=== PATIENT | female | born 1940 | race Caucasian/White ===

== ENCOUNTER 2017-05-09 13:00 | Outpatient (RCR) | payer MEDICARE, SELFPAY ==
--- NOTE | 2017-04-26 16:02 | HP.PTEVAL_ITS ---
Patient's Visit Information RHONDA HOLCOMB is a 76 year old F referred to Physical Therapy by LIS LAGOS with a diagnosis of L ITband syndrome. Date of Evaluation: 04/26/17 Physical Therapist: Javed Rodriguez, PT, - Visit Plan Frequency: 2-3x /Week Duration: 4-6 Weeks Plan: L LE stretching and strengthening, core stab ex's, nustep, and HEP. Iontophoresis for pain - Subjective Subjective: Pt reports L hip has been sore for 5-6 months. Pt reports she only has pain in her L hip if she pushes on it. Pt reports she is just worried that if she doesn't get this worked on now, it weill get worse for her. No T or N in L LE. Sleep diff secondary to pain as pt wakes up and has to roll over throughout the lnight. No prior L hip pain. Pt reports having a recent xray which revealed no sig findings. Pt reports she has 3 levels of stairs at her house, and negotiating them causes her to have some discomfort and fatigue. 0/ 10 pain at rest, 4/10 pain at worst - Pain L hip Pain Intensity (Out of 10): 0 Pain Intensity Range: 4 - Objective Neuro: B LE sensation is WNL to light touch. B pat tendon 3/3. Palpation: Pt is sore along L IT band distribution. MMT: B LE grossly 5/5 throughout. ROM: B LE WFL. flexibility: Pt is limited moderately. No leg length discrepancy - Goals Goal 1:: Decrease L LE pain x 50% to aid with sleep Goal Time Frame: 4-6 Weeks Goal 2:: Increase L LE flexibility x 1 grade to aid with decreasing pt's pain Goal Time Frame: 4-6 Weeks Goal 3:: I with HEP Goal Time Frame: 4-6 Weeks - Rehabilitation Potential Physical Therapy Diagnosis: L hip pain and limited flexibility secondary to L IT band syndrome Rehabilitation Potential: Good - Anticipated Interventions Patient/Client Instruction: Educate patient on: Condition, Plan of Care For the Purpose of:: To improve self management Therapeutic Exercise to Include: Strength training, Endurance training, Balance training, Flexibilty training, Dynamic Lumbar Stabilization For the Purpose of:: To decrease pain, To increase ROM, To improve muscle performance and motor function Iontophoresis (with Dexamethozone, with Acetic acid): Yes - with dex For the Purpose of:: To decrease pain Thank you for the opportunity to evaluate your patient. For Medicare and Medicare HMO plans, please review the plan of care and approve it. It will need to be FAXED BACK to us at [phone] for Medicare purposes. Please let me know if there are questions or concerns regarding this plan of care. Physician Signature: Date:
--- NOTE | 2017-07-10 13:00 | HP.PT.NRP ---
HP - Discharge Summary (1) - Patient Information RHONDA HOLCOMB was seen in my office for initial evaluation on 04/26/17. The following Plan of Care was established for this patient: Initial Frequency: 2-3x /Week Initial Duration: 4-6 Weeks - Anticipated Interventions Patient/Client Instruction: Educate patient on: Condition, Plan of Care For the Purpose of:: To improve self management Therapeutic Exercise to Include: Strength training, Endurance training, Balance training, Flexibilty training, Dynamic Lumbar Stabilization For the Purpose of:: To decrease pain, To increase ROM, To improve muscle performance and motor function Iontophoresis (with Dexamethozone, with Acetic acid): Yes - with dex For the Purpose of:: To decrease pain This patient was last seen in our office . Pertinent comments regarding their Physical therapy will appear below: Pt was last treated on the date of 05/09/17. Pt has not returned through todays date and is therefore discontinued at this time. At this point I will be discontinuing this patient from physical therapy. I would be happy to see this patient again in the future if found appropriate by the physician. Thank you! Javed Rodriguez, PT,
== END 2017-05-09 19:00 | disposition home or self-care (01) ==
LOC: PT 13:00
PROVIDERS: Family Provider Student in an Organized Health Care Education/Training Program; PCP Student in an Organized Health Care Education/Training Program
DX: M70.62 Trochanteric bursitis, left hip (principal); M76.32 Iliotibial band syndrome, left leg
CPT/HCPCS: 97110; 97161

== ENCOUNTER 2020-01-10 09:50 | Emergency (ER) | payer MEDICARE, SELFPAY ==
[2020-01-10 09:51] VITALS: BP 159/81; PULSE 77; RESP 16; TEMP 37; O2SAT 98; BMI 27.4
--- NOTE | 2020-01-10 10:10 | VDLE_ITS ---
Reason For Study: SWELLING RIGHT CFV is compressible, spontaneous, phasic, competent and demonstrates normal augmentation. FV is compressible, spontaneous, phasic, competent and demonstrates normal augmentation. POP V is compressible, spontaneous, phasic, competent and demonstrates normal augmentation. T/P Trunk is compressible. PTV is compressible. RT PerV is compressible. Acute superficial vein thrombosis is noted in the GSV from mid thigh to knee. GSV prox thigh is partially compressible with bright intralumenal echos consisitant with chronic DVT. Thrombus filled varicose veins noted throughout thigh. Procedure This is a venous duplex using B-mode, color flow and spectral Doppler. Exam performed portable in ED. A preliminary report was called and/or faxed to [facility]. Interpretation Summary There is no evidence of left lower extremity deep vein thrombosis. Acute superficial thrombophlebitis right great saphenous vein from the mid thigh to the knee. Suggestion of more chronic venous thrombosis in the right great saphenous vein proximal thigh. Superficial thrombophlebitis involving multiple varicosities of the right thigh. Ordering Physician: Juan Brooks Referring Physician: Jagjit Matias Performed By: Hamida Leon RVT and Student
--- NOTE | 2020-01-10 10:41 | ED.VIS.GEN ---
History of Present Illness Chief Complaint: Lower Extremity Injury Informant: Patient Onset: Days - Onset of pain and swelling Monday, 4 days ago Context: Sudden Onset Timing: Continuous Quality: Pain and redness Location: Proximal/mid medial right thigh Current Severity: Mild Maximum Severity: Moderate Worsened by: Unknown Relieved by: Nothing Associated Symptoms: No complaint of chest pain or shortness of breath. Narrative: Patient is a 79-year-old woman who was diagnosed with Covid in November. She was taken out of December 15. She had prior history of DVT. After reviewing records she has prior history of superficial thrombophlebitis. She denies fever, chills night sweats. She denies chest discomfort. She denies shortness of breath, dyspnea on exertion, orthopnea PND. She has no other complaints. He is on a baby aspirin Prior similar symptoms: Yes Recent Illness/Hospitalization: Yes - COVID-19 - Past Medical History (1) Superficial thrombophlebitis of leg Status: Acute (2) COVID-19 virus infection Status: Resolved Past Medical History - Allergies and Home Meds Allergies/Adverse Reactions: Allergies cephalexin Allergy (Verified 01/10/20 09:50) Unknown diclofenac Allergy (Verified 01/10/20 09:50) Unknown iodine Allergy (Verified 01/10/20 09:50) Unknown latex Allergy (Verified 01/10/20 09:50) Unknown levofloxacin Allergy (Verified 01/10/20 09:50) Unknown Penicillins Allergy (Verified 01/10/20 09:50) Unknown Primary Care Physician: Jagjit Matias DO [Primary Care Provider] - Prior records reviewed: No - No charge for review Surgical History: noncontributory Lives: Alone Smoking Status: Never smoker Alcohol: None Drugs: None Review of Systems General: Denies: Chills, Fever, Malaise, Subjective, Sweats ENT: Denies: Rhinorrhea, Sore throat Cardiovascular: Denies: Chest pain, Palpitations, Heart racing Respiratory: Denies: Dyspnea, Cough, Dyspnea on exertion, Orthopnea, Paroxysmal nocturnal dyspnea Gastrointestinal: Denies: Nausea, Vomiting, Melena, Hematochezia Musculoskeletal: Reports: Swelling, Extremity Pain. Denies: Myalgias, Arthralgias, Neck pain, Back pain, -, - Skin: Reports: Rash. Denies: Wounds Neurological: Denies: Headache, Weakness, Parasthesia Hematologic: Denies: Easy bruising, Easy bleeding Allergy: Denies: Uticaria, Swelling of the mouth, Swelling of the tongue Physical Exam Vital Signs/Narrative: Vital Signs Temp Pulse Resp BP Pulse Ox 01/10/20 09:51 98.6 F 77 16 159/81 H 98 Inital Vital Signs reviewed: Yes General: Well nourished, Well developed, No Acute Distress Head: Normocephalic, Atraumatic Eyes: Perrl, EOMI. Negative for: Pale conjunctiva, Scleral icterus Cardiovascular: Regular rate, Regular rhythm, No murmurs Respiratory: No distress Extremities: - - There is tenderness with palpable cord medial mid right thigh. There is slight swelling noted. There is no neurovascular findings.. Negative for: Nontender Skin: Normal color, Rash Neurological: Alert, Oriented x3, Cranial nerves II-XII grossly intact, Normal Strength, Normal Sensation, Normal Gait Psychological: Normal affect, Normal Mood Diagnostic/Tx/Re-eval - Medical Decision Making His duplex study was obtained since patient has history of prior DVT recent Covid infection which raises concern for clot. Furthermore she has a palpable cords. Venous duplex study reveals a mid thigh greater saphenous clot that is not near the tributary of the deep venous system. Treatment is aspirin. ED Disposition - Plan for ED Patient: Disposition: Home or Assisted Living Diagnosis: Thrombophlebitis leg superficial Instructions: ED Phlebitis Superficial Referrals: Jagjit Matias DO [Primary Care Provider] - 1 Week if not improving Additional Instructions: 1. Take an aspirin in the morning and an aspirin tablet in the evening. If you develop shortness of breath, chest discomfort or your leg becomes markedly swollen or discolored return to the emergency department.
--- NOTE | 2020-01-10 12:09 | ED.RN ---
DISCHARGE INSTRUCTIONS GIVEN TO AND REVIEWED WITH PATIENT, PATIENT DENIES QUESTIONS OR CONCERNS AND VOICES UNDERSTANDING OF DISCHARGE INSTRUCTIONS. PT AMBULATES OUT OF ROOM WITHOUT DIFFICULTY.
== END 2020-01-10 12:10 | disposition home or self-care (01) ==
LOC: ED 10:52
PROVIDERS: Emergency Provider Emergency Medicine; PCP Student in an Organized Health Care Education/Training Program
DX: I80.01 Phlebitis and thrombophlebitis of superficial vessels of right lower extremity (principal); Z86.718 Personal history of other venous thrombosis and embolism; Z86.19 Personal history of other infectious and parasitic diseases; Z79.82 Long term (current) use of aspirin
CPT/HCPCS: 93971; 99281

== ENCOUNTER 2020-02-05 19:50 | Inpatient (IN) | payer MEDICARE, SELFPAY ==
[2020-02-05 19:51] VITALS: BP 148/75; PULSE 100; RESP 18; TEMP 36.2; O2SAT 98; BMI 29.3
--- NOTE | 2020-02-05 20:12 | EKG12_ITS ---
Test Reason : ABDNORMALLABS Blood Pressure : / mmHG Vent. Rate : 093 BPM Atrial Rate : 093 BPM P-R Int : 118 ms QRS Dur : 094 ms QT Int : 366 ms P-R-T Axes : 013 041 017 degrees QTc Int : 455 ms Normal sinus rhythm Nonspecific ST and T wave abnormality Abnormal ECG Confirmed by LUIS ANGEL PARRA, LEDA ([id number]), slot editor MITALI CORTÉS ([id number]) on 02/07/2020 11:09:39 AM Referred By: SILVIA Confirmed By:LEDA PLASENCIA MD
[2020-02-05 20:42] LABS: Absolute Lymphocyte Count 1.51 X10^3/uL (0.83-4.51); Absolute Neutrophil Count 4.1 X10^3/uL (2.0-7.7); Basophil# 0.02 X10^3/uL; Basophil% 0.3 % (0-1); Eosinophil# 0.08 X10^3/uL; Eosinophils% 1.2 % (0-5); Hematocrit 16.2 % (37-47); Lymphocyte # 1.51 X10^3/ul (4.0); Lymphocyte % 21.8 % (19-41); Mean Corp Hgb Conc 27.8 g/dL (32-36); Mean Corpuscular Hgb 22.6 pg (27.0-32.0); Mean Corpuscular Volume 81.4 fL (81-99); Monocyte# 1.16 X10^3/uL; Monocyte% 16.7 % (0-10); NRBC Flagged by Analyzer 0.4 % (0-5); Neutrophil % 59.1 % (47-70); POSITIVE COUNT YES; Platelet Count 354 K/mm3 (150-450); RBC Distribution Width CV 15.9 % (11.6-14.6); RBC Distribution Width SD 46.6 fl (35.1-43.9); Red Blood Count 1.99 M/mm3 (4.2-5.4); White Blood Count 6.9 K/mm3 (4.4-11.0)
[2020-02-05 20:49] LABS: Hemoglobin 4.5 g/dL (12.0-15.0)
[2020-02-05 20:58] LABS: International Normalized Ratio 1.2; Prothrombin Time (Protime)PT. 14.4 SECONDS (11.7-14.9)
[2020-02-05 21:00] LABS: Anion Gap 7 (5-15); BUN 39 mg/dL (7-18); BUN/Creat Ratio 29.3 RATIO (10-20); Calcium,Total 8.5 mg/dL (8.5-10.1); Chloride 109 mmol/L (98-107); Creatinine, Serum 1.33 mg/dL (0.55-1.02); EST Glomerular Filtration Rate 41 mL/min (>60); Est Glom Filt Rate - Afr Amer 50 mL/min (>60); Glucose 199 mg/dL (74-106); Potassium 4.1 mmol/L (3.5-5.1); Sodium Level 142 mmol/L (136-145)
--- NOTE | 2020-02-05 21:21 | ED.VIS.GEN ---
History of Present Illness Chief Complaint: Abn Labs Narrative: This patient is a 79-year-old female who presents with anemia. She had Covid in early December. She states she was feeling better but some of the similar symptoms began to return 3 days ago. She developed aching in her shoulders as well as lightheadedness and shortness of breath with exertion. She complains of generalized malaise and fatigue and generalized weakness. She had outpatient blood work and her hemoglobin came back at 4.5 so she was sent here to the emergency department. Her previous hemoglobin was 13.1. She does have a history of iron deficiency anemia but was no longer on iron. She does note that she had black tarry stools when she was ill with Covid but she thought this was just a symptom of Covid. She again had black tarry stools on Monday but not since that time and had normal stool today. She is not on any anticoagulation in fact takes no daily medications. Past Medical History - Allergies and Home Meds Allergies/Adverse Reactions: Allergies cephalexin Allergy (Verified 02/05/20 19:53) Unknown diclofenac Allergy (Verified 02/05/20 19:53) Unknown iodine Allergy (Verified 02/05/20 19:53) Unknown latex Allergy (Verified 02/05/20 19:53) Unknown levofloxacin Allergy (Verified 02/05/20 19:53) Unknown Penicillins Allergy (Verified 02/05/20 19:53) Unknown Primary Care Physician: Jagjit Matias DO [Primary Care Provider] - Past Medical History: None Surgical History: noncontributory Smoking Status: Never smoker Review of Systems All systems negative except as indicated General: Reports: - - Weakness. Denies: Fever Eyes: Denies: Visual changes - bilaterally ENT: Denies: Sore throat Cardiovascular: Reports: - - Lightheadedness. Denies: Chest pain Respiratory: Reports: Dyspnea Gastrointestinal: Reports: Melena. Denies: Abdominal pain, Vomiting Musculoskeletal: Reports: Myalgias, Arthralgias Skin: Denies: Rash Neurological: Denies: Headache Physical Exam Vital Signs/Narrative: Vital Signs Temp Pulse Resp BP Pulse Ox 02/05/20 19:51 97.1 F L 100 18 148/75 H 98 Inital Vital Signs reviewed: Yes General: Well nourished, Well developed Head: Normocephalic Eyes: EOMI ENT: Moist mucous membranes Neck: Supple Cardiovascular: Regular rhythm, Tachycardia Respiratory: No distress, CTA bilaterally Abdomen: Soft, Nontender Rectal: - - Rectal exam no mass no gross blood light brown stool Skin: Normal color Neurological: Alert Psychological: Normal affect Diagnostic/Tx/Re-eval Laboratory Results 02/05/20 02/05/20 02/05/20 20:20 20:20 20:20 WBC 6.9 RBC 1.99 L Hgb 4.5 L* Hct 16.2 L MCV 81.4 MCH 22.6 L MCHC 27.8 L RDW Std Deviation 46.6 H RDW Coeff of Zofia 15.9 H Plt Count 354 MPV 10.0 Immature Gran % (Auto) 0.900 Neut % (Auto) 59.1 Lymph % (Auto) 21.8 [place] % (Auto) 16.7 H Eos % (Auto) 1.2 Baso % (Auto) 0.3 Absolute Neuts (auto) 4.1 Absolute Lymphs (auto) 1.51 Nucleated RBC % 0.4 Diff Path Review May foll PT 14.4 INR 1.2 Sodium 142 Potassium 4.1 Chloride 109 H Carbon Dioxide 26.0 Anion Gap 7 BUN 39 H Creatinine 1.33 H Estim Creat Clear Calc 29.30 Est GFR (MDRD) Af Amer 50 L Est GFR (MDRD) Non-Af 41 L BUN/Creatinine Ratio 29.3 H Glucose 199 H Calcium 8.5 Troponin I < 0.015 Crossmatch 02/05/20 20:20 WBC RBC Hgb Hct MCV MCH MCHC RDW Std Deviation RDW Coeff of Zofia Plt Count MPV Immature Gran % (Auto) Neut % (Auto) Lymph % (Auto) [place] % (Auto) Eos % (Auto) Baso % (Auto) Absolute Neuts (auto) Absolute Lymphs (auto) Nucleated RBC % Diff Path Review PT INR Sodium Potassium Chloride Carbon Dioxide Anion Gap BUN Creatinine Estim Creat Clear Calc Est GFR (MDRD) Af Amer Est GFR (MDRD) Non-Af BUN/Creatinine Ratio Glucose Calcium Troponin I Crossmatch See Detail - Medical Decision Making Labs are notable for hemoglobin 4.5. Patient had a type and screen and will be transfused 2 units of packed red blood cells. EKG shows normal sinus rhythm at a rate of [address] and T wave abnormalities. Patient was discussed with the hospitalist who agrees to admit. Patient was also discussed with surgery on-call, Dr. Lawrence who agrees to see the patient in consultation while inpatient and if patient remains stable can likely have outpatient endoscopy unless she does not respond to blood transfusion as expected. ED Disposition - Plan for ED Patient: Disposition: Acute Care Hospital [facility] Diagnosis: Blood loss anemia, GI bleed Referrals: Jagjit Matias DO [Primary Care Provider] -
--- NOTE | 2020-02-05 21:56 | HP.PCM_ITS ---
Problem List (1) Acute blood loss anemia Status: Acute (2) Blood loss anemia Status: Acute (3) GI bleed Status: Acute History of Present Illness Date of Admission: 02/05/20 Chief Complaint: Anemia on outpatient lab. The patient is a 79 year old F with a significant history of iron deficiency anemia who presents emergency department because of anemia on outpatient lab. On the same day of presentation patient's hemoglobin on outpatient lab was 4.5. Patient and her had a COVID-19 virus. Patient came out of isolation on December 26, 2019. However she report that 3 days ago she felt like she was having Covid-like symptoms again. These symptoms she described as lightheadedness; shortness of breath; neck and shoulder pain; and fatigue. She followed her to her scheduled appointment with their common ( and ) PCP. PCP subsequently ordered lab work for patient. The next day of the lab work returned with a hemoglobin of 4.5 as above. Also patient reported that while she was having COVID-19 she was having black tarry stools. The black tarry stools re-occurred 3 days ago. However on the day of presentation the black tarry stool had stopped. Emergent department doctor reports brown stool on rectal examination. Because of history of deficiency anemia about 3 to 4 years ago patient had EGD and colonoscopy with Dr. Hilliard, risk control product liability director with [facility]. Past Medical History Medical History: Medical History (Last Reviewed 02/06/20 @ 02:[address] Robert Nuno MD) Abnormal Pap smear of cervix R87.619 Allergies cephalexin Allergy (Verified 02/05/20 19:53) Unknown diclofenac Allergy (Verified 02/05/20 19:53) Unknown iodine Allergy (Verified 02/05/20 19:53) Unknown latex Allergy (Verified 02/05/20 19:53) Unknown levofloxacin Allergy (Verified 02/05/20 19:53) Unknown Penicillins Allergy (Verified 02/05/20 19:53) Unknown Home Medications: Ambulatory Orders Medication Instructions Recorded Calcium Carbonate [Elemental 1,200 mg PO DAILY 02/05/20 Calcium] Cholecalciferol (Vitamin D3) 3,000 unit PO DAILY 02/05/20 [D3-2000] Multivitamin/Iron/Folic Acid 1 ea PO DAILY 02/05/20 [Centrum Adults Tablet] Surgical History: Surgical History (Last Reviewed 02/06/20 @ 02:[address] Robert Nuno MD) History of bilateral knee replacement Z96.653 History of hip replacement Z96.649 Hx of appendectomy Z90.49 Smoking Status: Never smoker Tobacco Use: Non-smoker - *Family History Maternal Family History: Family History (Last Reviewed 02/06/20 @ 02:[address] Robert Nuno MD) Father Diabetes Cancer Sister Breast cancer Hyperlipidemia Mother Hyperlipidemia Review of Systems Constitutional: Denies: Chills, Fever, Weight Change HEENT: Denies: Head Aches, Sinus Congestion, Sinus Drainage Cardiovascular: Denies: Chest Pain, Palpitations Respiratory: Denies: Cough, Shortness of breath at rest, Sputum production Gastrointestinal: Reports: Melena. Denies: Abdominal Pain, Nausea, Vomiting Genitourinary: Denies: Dysuria Musculoskeletal: Denies: Joint Pain, Joint Tenderness Skin: Denies: Rash, Wounds Neurological: Denies: Numbness, Tingling, Focal weakness Psychiatric: Denies: Anxiety, Depression, Homicidal Ideations, Suicidal Ideations Hematologic/ Lymphatic: Denies: Easy Bruising, Easy Bleeding VTE Information - Inpt Only VTE Present on Admission: No VTE Mechan Device Prophylaxis: SCD's VTE Pharm Prophylaxis ordered?: No Patient Problems: Active and Suspected Problems (Last Reviewed 02/06/20 @ 02:[address] Robert Nuno MD) Blood loss anemia (Acute) GI bleed (Acute) Acute blood loss anemia (Acute) - Physical Exam Vitals/I&O's: Vital Signs Temp Pulse Resp BP Pulse Ox 97.1 F L 100 18 148/75 H 98 02/05/20 19:51 02/05/20 19:51 02/05/20 19:51 02/05/20 19:51 02/05/20 19:51 Oxygen Delivery Method Room Air Weight: 75.2 kg Body Mass Index (BMI) 29.3 General: Alert, Oriented x3, Cooperative HEENT: Atraumatic, PERRLA, EOMI, Normocephalic Neck: Supple, No JVD, Negative Carotid Bruits Lungs: Clear to auscultation, Normal air movement Cardiovascular: Regular rate, No murmurs Abdomen: Bowel Sounds Present, Soft, Non Tender, - - Emergent department doctor reported brown stool and unremarkable rectal exams. Extremities: No edema, Capillary Refill Less than 3 Seconds Skin: No rashes, No breakdown, - - Pallor Musculoskeletal: No Tenderness to Palpation of Joints or Extremities Neurological: Cranial nerves II-XII grossly intact Psych/Mental Status: Normal Affect, Appropriate Microbiology Past 72 Hours 02/05/20 20:56 Stool Stool Occult Blood (TEREZA) - Final Laboratory Results 02/05/20 20:20: WBC 6.9, RBC 1.99 L, Hgb 4.5 L*, Hct 16.2 L, MCV 81.4, MCH 22.6 L, MCHC 27.8 L, RDW Std Deviation 46.6 H, RDW Coeff of Zofia 15.9 H, Plt Count 354, MPV 10.0, Immature Gran % (Auto) 0.900, Neut % (Auto) 59.1, Lymph % (Auto) 21.8, [place] % (Auto) 16.7 H, Eos % (Auto) 1.2, Baso % (Auto) 0.3, Absolute Neuts (auto) 4.1, Absolute Lymphs (auto) 1.51, Nucleated RBC % 0.4, Diff Path Review July02/05/20 20:20: Sodium 142, Potassium 4.1, Chloride 109 H, Carbon Dioxide 26.0, Anion Gap 7, BUN 39 H, Creatinine 1.33 H, Estim Creat Clear Calc 29.30, Est GFR (MDRD) Af Amer 50 L, Est GFR (MDRD) Non-Af 41 L, BUN/Creatinine Ratio 29.3 H, Glucose 199 H, Calcium 8.5, Troponin I < 0.015 02/05/20 20:20: PT 14.4, INR 1.2 02/05/20 20:20: Blood Type Pending, Antibody Screen Pending, Crossmatch See Deta il Assessment/Plan All Active Problems (Last Reviewed 02/06/20 @ 02:[address] Robert Nuno MD) Blood loss anemia (Acute) GI bleed (Acute) Acute blood loss anemia (Acute) Acute blood loss anemia. With history of black tarry stools and low hemoglobin it is likely that patient's is having acute blood loss. Review of emergency department labs shows that on presentation her hemoglobin was 4.5; same as outpatient on the day of presentation. Review of community records shows that her hemoglobin on 11/01/2019 was 13.1. Her BUN is elevated at 39. Protonix bolus and drip ordered 2 units of blood was ordered at emergency department to be transfused. After 2 units has been completed H&H 1 hour after transfusion ordered. Normal saline at 100 MS per hour ordered. Occult stool at the emergency department was negative. Repeat occult stool. Keep n.p.o. GI consult. VANDA Review of community labs showed on 11/01/2019 her creatinine was 0.84 Her creatinine on presentation was 1.33 and BUN is 39. BUN over creatinine is 29.3. Likely prerenal secondary to acute blood loss anemia. Transfusion as above. Gentle IV hydration. Trend BMP. Acute hyperglycemia Blood glucose of 199 Check A1c BMP in a.m. Iron deficiency anemia Review of community records shows the iron and ferritin studies on 02/05/2020 showed iron deficiency anemia. Blood transfusion as above Patient to follow-up with PCP who ordered tests. DVT prophylaxis No chemical thromboprophylaxis secondary to possible GI bleed. SCD ordered. Inpatient E&M: 73736 Init Hosp L3
[2020-02-05 22:31] VITALS: BMI 29.7
[2020-02-05 22:35] VITALS: BP 149/66; PULSE 93; RESP 18; TEMP 37; O2SAT 98
[2020-02-05 23:14] VITALS: BP 118/54; PULSE 90; RESP 16; TEMP 37.2; O2SAT 98
[2020-02-05 23:34] VITALS: BP 110/54; PULSE 86; RESP 16; TEMP 37; O2SAT 98
[2020-02-06] VITALS (15 sets, daily range): BP systolic 107–153; BP diastolic 53–86; PULSE 68–88; RESP 16–18; TEMP 36.4–37.1; O2SAT 95–100
[2020-02-06] MEDS: 0.9% Saline Lock 10 ML Syringe IV ×2 (02:36→05:46)
[2020-02-06] MEDS: 0.9% Normal Saline 1,000 ML 100 ML IV ×2 (05:42→17:15)
[2020-02-06 06:48] LABS: Hematocrit 21.5 % (37-47); Hemoglobin 6.4 g/dL (12.0-15.0)
[2020-02-06 07:10] LABS: Anion Gap 4 (5-15); BUN 29 mg/dL (7-18); BUN/Creat Ratio 34.8 RATIO (10-20); Calcium,Total 8.2 mg/dL (8.5-10.1); Chloride 112 mmol/L (98-107); Creatinine, Serum 0.83 mg/dL (0.55-1.02); EST Glomerular Filtration Rate 70 mL/min (>60); Est Glom Filt Rate - Afr Amer 85 mL/min (>60); Estimated Creatinine Clearance 44.89 ml/min; Glucose 105 mg/dL (74-106); Potassium 3.8 mmol/L (3.5-5.1); Sodium Level 142 mmol/L (136-145)
--- NOTE | 2020-02-06 07:24 | PCM.CONS.GEN ---
Reason for Consult Date of Consultation: 02/06/20 History of Present Illness: The patient is a 79 year old F presented to the ER due to weakness and history of melena. Patient was diagnosed with Covid in early December and did quarantine. During this time she also had some melena which did improve however patient had some superficial blood clots and did take full dose aspirin which patient did admit to causing discomfort in her abdomen when she took it. Patient again noticed some melena which started on Monday and continued for a few days patient did stop her aspirin for the last week. Patient currently states her stools are brown. On admit patient's hemoglobin was 4.5. Previous record of hemoglobin in October was 13 patient was previously also on iron due to iron deficiency anemia. Patient denies ever previously having blood per rectum. Patient initially thought this could be due to Covid as when she was first diagnosed with Covid in early December she had this melena as well. Patient is on Protonix drip currently. Patient states her last EGD and colonoscopy was for the iron deficiency anemia about 3 to [address] Hilliard patient states that they were negative at that time and all of her previous colonoscopies were negative and she had gotten 10 years. Past Medical History Medical History: Medical History (Last Reviewed 02/06/20 @ 02:[address] Robert Nuno MD) Abnormal Pap smear of cervix R87.619 Allergies cephalexin Allergy (Verified 02/05/20 19:53) Unknown diclofenac Allergy (Verified 02/05/20 19:53) Unknown iodine Allergy (Verified 02/05/20 19:53) Unknown latex Allergy (Verified 02/05/20 19:53) Unknown levofloxacin Allergy (Verified 02/05/20 19:53) Unknown Penicillins Allergy (Verified 02/05/20 19:53) Unknown Home Medications: Ambulatory Orders Medication Instructions Recorded Calcium Carbonate [Calcium] 1,200 mg PO DAILY 02/05/20 Cholecalciferol (Vitamin D3) 3,000 unit PO DAILY 02/05/20 [D3-2000] Multivitamin/Iron/Folic Acid 1 ea PO DAILY 02/05/20 [Centrum Adults Tablet] Ferrous Sulfate 325 mg PO DAILY@0800 #30 tab 02/07/20 Pantoprazole Sodium [Protonix] 40 mg PO DAILY #30 tab 02/07/20 Surgical History: Surgical History (Last Reviewed 02/06/20 @ 02:[address] Robert Nuno MD) History of bilateral knee replacement Z96.653 History of hip replacement Z96.649 Hx of appendectomy Z90.49 Surgical History: noncontributory Smoking Status: Never smoker Tobacco Use: Non-smoker - *Family History Maternal Family History: Family History (Last Reviewed 02/06/20 @ 02:[address] Robert Nuno MD) Father Diabetes Cancer Sister Breast cancer Hyperlipidemia Mother Hyperlipidemia Review of Systems Constitutional: Denies: Fever Eyes: Denies: Blurred vision HEENT: Denies: Difficulty Swallowing Cardiovascular: Denies: Chest Pain Respiratory: Denies: Cough Gastrointestinal: Reports: Abdominal Pain, Diarrhea. Denies: Hematochezia, Nausea, Vomiting Genitourinary: Denies: Dysuria Skin: Denies: Jaundice Neurological: Denies: Balance problems Hematologic/ Lymphatic: Denies: Easy Bruising, Easy Bleeding Patient Problems: Active and Suspected Problems (Last Reviewed 02/06/20 @ 02:[address] Robert Nuno MD) Blood loss anemia (Acute) GI bleed (Acute) Acute blood loss anemia (Acute) - Physical Exam Vitals/I&O's: Vital Signs Temp Pulse Resp BP Pulse Ox 98.5 F 74 16 117/74 99 02/06/20 05:40 02/06/20 05:40 02/06/20 05:40 02/06/20 05:40 02/06/20 05:40 Oxygen Delivery Method Room Air Weight: 162 lb 7.691 oz Body Mass Index (BMI) 29.7 Intake and Output for Last 24 Hours 02/04/20 02/05/20 02/06/20 23:59 23:59 23:59 Intake Total 0 / 0 835 / 835 Output Total 250 / 250 350 / 350 Balance -250 / -250 485 / 485 General: Alert, Oriented x3, Cooperative, No apparent distress HEENT: Atraumatic Lungs: Normal air movement Cardiovascular: Regular rate Abdomen: Soft, Non Tender, Non-Distended Extremities: No clubbing, No cyanosis, No edema Neurological: Cranial nerves II-XII grossly intact Psych/Mental Status: Normal Affect Microbiology Past 72 Hours 02/05/20 20:56 Stool Stool Occult Blood (TEREZA) - Final Laboratory Results 02/05/20 20:20: WBC 6.9, RBC 1.99 L, Hgb 4.5 L*, Hct 16.2 L, MCV 81.4, MCH 22.6 L, MCHC 27.8 L, RDW Std Deviation 46.6 H, RDW Coeff of Zofia 15.9 H, Plt Count 354, MPV 10.0, Immature Gran % (Auto) 0.900, Neut % (Auto) 59.1, Lymph % (Auto) 21.8, [place] % (Auto) 16.7 H, Eos % (Auto) 1.2, Baso % (Auto) 0.3, Absolute Neuts (auto) 4.1, Absolute Lymphs (auto) 1.51, Nucleated RBC % 0.4, Diff Path Review July02/05/20 20:20: Sodium 142, Potassium 4.1, Chloride 109 H, Carbon Dioxide 26.0, Anion Gap 7, BUN 39 H, Creatinine 1.33 H, Estim Creat Clear Calc 29.30, Est GFR (MDRD) Af Amer 50 L, Est GFR (MDRD) Non-Af 41 L, BUN/Creatinine Ratio 29.3 H, Glucose 199 H, Calcium 8.5, Troponin I < 0.015 02/05/20 20:20: PT 14.4, INR 1.2 02/05/20 20:20: Blood Type A POSITIVE, Antibody Screen NEGATIVE, Crossmatch See Detail 02/06/20 06:40: Sodium 142, Potassium 3.8, Chloride 112 H, Carbon Dioxide 26.0, Anion Gap 4 L, BUN 29 H, Creatinine 0.83, Estim Creat Clear Calc 44.89, Est GFR (MDRD) Af Amer 85, Est GFR (MDRD) Non-Af 70, BUN/Creatinine Ratio 34.8 H, Glucose 105, Calcium 8.2 L 02/06/20 06:40: Hgb 6.4 L, Hct 21.5 L Current Medications Sodium Chloride () 1,000 mls @ 100 mls/hr IV .[facility]H [facility] Last Admin: 02/06/20 05:42 Dose: 100 mls/hr Documented by: Pantoprazole Sodium 80 mg/ (Sodium Chloride) 100 mls @ 10 mls/hr CONT INF Q10H [facility] Last Admin: 11/26/20 00:19 Dose: 10 mls/hr Documented by: Sodium Chloride () 250 mls @ 15 mls/hr IV .[id number] PRN PRN Reason: Saline Flush Sodium Chloride () 250 mls @ 15 mls/hr IV .[id number] PRN PRN Reason: Additional IVPB Infusion Ondansetron HCl (Ondansetron 4 Mg/2 Ml Vial) 4 mg IV Q8H PRN PRN PRN Reason: NAUSEA/VOMITING Sodium Chloride (0.9% Saline Lock 10 Ml Syringe) 10 - 40 ml IV UD PRN PRN Reason: SALINE FLUSH Last Admin: 02/06/20 05:46 Dose: 10 ml Documented by: Assessment/Plan All Active Problems (Last Reviewed 02/06/20 @ 02:[address] Robert Nuno MD) Blood loss anemia (Acute) GI bleed (Acute) Acute blood loss anemia (Acute) 79-year-old female with GI bleed, melena 1. Patient's hemoglobin was 4.5 admit after 2 units packed red blood cells it is 6.4 patient is getting another unit. Patient states she feels much better states she been having brown stools, her rectal exam did show brown stool. Per patient's history sounds like she had a GI bleed in early December which did improve and then after starting the full dose aspirin she had another episode. Discussed with patient that as long as she comes up appropriately she can get EGD and colonoscopy as an outpatient for follow-up patient was agreeable with plan. We will have patient continue on Protonix 40 mg p.o. daily on discharge for at least 2 months and recommend she avoid aspirin or ibuprofen. Also discussed with Dr. Hamm. Joan Lawrence M.D. Pager: [phone] [facility] [address] [place] [address], [facility], [address] [place] [address] Office: [phone] Inpatient E&M: [id number] Init Hosp L3
--- NOTE | 2020-02-06 12:19 | PN_ITS ---
Patient Problems: Active and Suspected Problems (Last Reviewed 02/06/20 @ 02:[address] Robert Nuno MD) Blood loss anemia (Acute) GI bleed (Acute) Acute blood loss anemia (Acute) Reason for Visit: anemia Subjective: Notes 2 separate events of melena. [place] wiped out this last time. Vitals/I&O's: Vital Signs Temp Pulse Resp BP Pulse Ox 36.9 C 73 18 142/75 H 100 02/06/20 10:15 02/06/20 10:15 02/06/20 10:15 02/06/20 10:15 02/06/20 10:15 Oxygen Delivery Method Room Air Weight: 73.7 kg Body Mass Index (BMI) 29.7 Intake and Output for Last 24 Hours 02/04/20 02/05/20 02/06/20 23:59 23:59 23:59 Intake Total 0 / 0 835 / 835 Output Total 250 / 250 350 / 350 Balance -250 / -250 485 / 485 General: Alert, No apparent distress HEENT: Atraumatic, Normocephalic Oral: Moist Mucosa, No Gingival or Mucosal Lesions/ Ulcerations Neck: No Nodes, Thyroid Normal Size and Texture Lungs: Clear to auscultation, Normal air movement, No rhonchi, No wheeze, No rales Cardiovascular: Regular rate, Regular Rhythm, Normal S1, Normal S2 Abdomen: Bowel Sounds Present, Soft, Non Tender, Non-Distended, No Hepato- splenomegaly Extremities: No edema, No Calf Tenderness Skin: No rashes, No breakdown Microbiology Past 72 Hours 02/05/20 20:56 Stool Stool Occult Blood (TEREZA) - Final Laboratory Results 02/05/20 20:20: WBC 6.9, RBC 1.99 L, Hgb 4.5 L*, Hct 16.2 L, MCV 81.4, MCH 22.6 L, MCHC 27.8 L, RDW Std Deviation 46.6 H, RDW Coeff of Zofia 15.9 H, Plt Count 354, MPV 10.0, Immature Gran % (Auto) 0.900, Neut % (Auto) 59.1, Lymph % (Auto) 21.8, [place] % (Auto) 16.7 H, Eos % (Auto) 1.2, Baso % (Auto) 0.3, Absolute Neuts (auto) 4.1, Absolute Lymphs (auto) 1.51, Nucleated RBC % 0.4, Diff Path Review July02/05/20 20:20: Sodium 142, Potassium 4.1, Chloride 109 H, Carbon Dioxide 26.0, Anion Gap 7, BUN 39 H, Creatinine 1.33 H, Estim Creat Clear Calc 29.30, Est GFR (MDRD) Af Amer 50 L, Est GFR (MDRD) Non-Af 41 L, BUN/Creatinine Ratio 29.3 H, Glucose 199 H, Calcium 8.5, Troponin I < 0.015 02/05/20 20:20: PT 14.4, INR 1.2 02/05/20 20:20: Blood Type A POSITIVE, Antibody Screen NEGATIVE, Crossmatch See Detail 02/05/20 20:20: Crossmatch See Detail 02/06/20 06:40: Sodium 142, Potassium 3.8, Chloride 112 H, Carbon Dioxide 26.0, Anion Gap 4 L, BUN 29 H, Creatinine 0.83, Estim Creat Clear Calc 44.89, Est GFR (MDRD) Af Amer 85, Est GFR (MDRD) Non-Af 70, BUN/Creatinine Ratio 34.8 H, Glucose 105, Calcium 8.2 L 02/06/20 06:40: Hgb 6.4 L, Hct 21.5 L Current Medications Sodium Chloride () 1,000 mls @ 100 mls/hr IV .Q10H [facility] Last Admin: 02/06/20 05:42 Dose: 100 mls/hr Documented by: Sodium Chloride () 250 mls @ 15 mls/hr IV .[id number] PRN PRN Reason: Saline Flush Sodium Chloride () 250 mls @ 15 mls/hr IV .[id number] PRN PRN Reason: Additional IVPB Infusion Pantoprazole Sodium 40 mg/ (Sodium Chloride) 110 mls @ 330 mls/hr IV Q12 [facility] Ondansetron HCl (Ondansetron 4 Mg/2 Ml Vial) 4 mg IV Q8H PRN PRN PRN Reason: NAUSEA/VOMITING Sodium Chloride (0.9% Saline Lock 10 Ml Syringe) 10 - 40 ml IV UD PRN PRN Reason: SALINE FLUSH Last Admin: 02/06/20 05:46 Dose: 10 ml Documented by: STROKE Vital Signs/Narrative: Vital Signs Temp Pulse Resp BP Pulse Ox 02/06/20 10:15 36.9 C 73 18 142/75 H 100 02/06/20 10:10 36.4 C L 76 18 131/69 H 95 02/06/20 10:00 36.7 C 68 18 110/86 H 96 Medical Necessity - Tobacco Use Smoking Status: Never smoker Tobacco Use: Non-smoker Assessment/Plan All Active Problems (Last Reviewed 02/06/20 @ 02:[address] Robert Nuno MD) Blood loss anemia (Acute) GI bleed (Acute) Acute blood loss anemia (Acute) 1. ABLA 2/2 GI bleed. hg improved, but still low after 2 units PRBCs. Will transfuse another unit and recheck. 2. GI bleed resolved suspect PUD change PPI from gtt to boluses. Eventually to PO upon discharge DW Dr. Lawrence, outpt EGD and cscope 3. RLE SVT no further ASA. Pt notes she had melena before ASA initiated 4. VTE prophylaxis: SCDs. No concern for propagation of SVT with SCDs. Inpatient E&M: [id number] Subs Hosp L2
[2020-02-06 15:35] LABS: Absolute Neutrophil Count 4.4 X10^3/uL (2.0-7.7); Basophil# 0.02 X10^3/uL; Basophil% 0.3 % (0-1); Eosinophil# 0.16 X10^3/uL; Eosinophils% 2.4 % (0-5); Hematocrit 26.1 % (37-47); Hemoglobin 7.9 g/dL (12.0-15.0); Lymphocyte % 16.4 % (19-41); Mean Corp Hgb Conc 30.3 g/dL (32-36); Mean Corpuscular Hgb 25.7 pg (27.0-32.0); Mean Platelet Vol. 9.7 fl (6.2-12.0); Monocyte# 0.98 X10^3/uL; Monocyte% 14.6 % (0-10); NRBC Flagged by Analyzer 0 % (0-5); Neutrophil # 4.42 X10^3/uL (2.7-7.7); Platelet Count 240 K/mm3 (150-450); RBC Distribution Width CV 15.9 % (11.6-14.6); RBC Distribution Width SD 49.4 fl (35.1-43.9); Red Blood Count 3.07 M/mm3 (4.2-5.4); White Blood Count 6.7 K/mm3 (4.4-11.0)
[2020-02-06] MEDS: Ensure Clear 120 ML Liquid PO ×2 (17:16)
[2020-02-07 02:00] VITALS: BP 160/86; PULSE 88; RESP 16; TEMP 36.7; O2SAT 95
[2020-02-07] MEDS: 0.9% Normal Saline 1,000 ML 100 ML IV (02:36)
[2020-02-07 06:46] LABS: Absolute Lymphocyte Count 0.84 X10^3/uL (0.83-4.51); Basophil# 0.04 X10^3/uL; Basophil% 0.4 % (0-1); Eosinophil# 0.15 X10^3/uL; Eosinophils% 1.6 % (0-5); Hemoglobin 8.1 g/dL (12.0-15.0); Lymphocyte # 0.84 X10^3/ul (4.0); Lymphocyte % 9.1 % (19-41); Mean Corp Hgb Conc 31.2 g/dL (32-36); Mean Corpuscular Hgb 26.3 pg (27.0-32.0); Mean Corpuscular Volume 84.4 fL (81-99); Mean Platelet Vol. 10.5 fl (6.2-12.0); Monocyte# 1.11 X10^3/uL; Monocyte% 12.1 % (0-10); NRBC Flagged by Analyzer 0 % (0-5); Neutrophil # 7.01 X10^3/uL (2.7-7.7); Neutrophil % 76.4 % (47-70); Platelet Count 240 K/mm3 (150-450); RBC Distribution Width CV 16.5 % (11.6-14.6); RBC Distribution Width SD 50.9 fl (35.1-43.9); Red Blood Count 3.08 M/mm3 (4.2-5.4); White Blood Count 9.2 K/mm3 (4.4-11.0)
[2020-02-07 07:06] VITALS: O2SAT 96
[2020-02-07 07:21] LABS: Anion Gap 5 (5-15); BUN 13 mg/dL (7-18); BUN/Creat Ratio 19.4 RATIO (10-20); Chloride 111 mmol/L (98-107); Creatinine, Serum 0.67 mg/dL (0.55-1.02); EST Glomerular Filtration Rate 91 mL/min (>60); Est Glom Filt Rate - Afr Amer 110 mL/min (>60); Estimated Creatinine Clearance 37.26 ml/min; Glucose 110 mg/dL (74-106); Potassium 3.7 mmol/L (3.5-5.1); Sodium Level 141 mmol/L (136-145)
[2020-02-07 08:00] VITALS: O2SAT 98
[2020-02-07 09:00] VITALS: BP 141/77; PULSE 80; RESP 18; TEMP 36.7; O2SAT 98
--- NOTE | 2020-02-07 10:08 | PCM.PN.SRG ---
Patient Problems: Active and Suspected Problems (Last Reviewed 02/06/20 @ 02:[address] Robert Nuno MD) Blood loss anemia (Acute) GI bleed (Acute) Acute blood loss anemia (Acute) Subjective: Pt states she has had normal BM-brown over night; weakness resolved w 3 units PRBC - Physical Exam Vitals/I&O's: Vital Signs Temp Pulse Resp BP Pulse Ox 98.1 F 80 18 141/77 H 98 02/07/20 09:00 02/07/20 09:00 02/07/20 09:00 02/07/20 09:00 02/07/20 09:00 Oxygen Delivery Method Room Air Weight: 162 lb 7.691 oz Body Mass Index (BMI) 29.7 Intake and Output for Last 24 Hours 02/05/20 02/06/20 02/07/20 23:59 23:59 23:59 Intake Total 0 / 0 2985 / 2985 1045 / 1045 Output Total 250 / 250 850 / 1150 1400 / 1400 Balance -250 / -250 2135 / 1835 -355 / -355 General: Alert, Oriented x3, Cooperative, No apparent distress Lungs: Normal air movement Cardiovascular: Regular rate Abdomen: Soft, Non Tender, Non-Distended Extremities: No clubbing, No cyanosis Psych/Mental Status: Normal Affect Microbiology Past 72 Hours 02/05/20 20:56 Stool Stool Occult Blood (TEREZA) - Final Laboratory Results 02/05/20 20:20: Crossmatch See Detail 02/06/20 15:22: WBC 6.7, RBC 3.07 L, Hgb 7.9 L, Hct 26.1 L, MCV 85.0, MCH 25.7 L, MCHC 30.3 L D, RDW Std Deviation 49.4 H, RDW Coeff of Zofia 15.9 H, Plt Count 240, MPV 9.7, Immature Gran % (Auto) 0.300, Neut % (Auto) 66.0, Lymph % (Auto) 16.4 L, [place] % (Auto) 14.6 H, Eos % (Auto) 2.4, Baso % (Auto) 0.3, Absolute Neuts (auto) 4.4, Absolute Lymphs (auto) 1.10, Nucleated RBC % 0 02/07/20 05:51: WBC 9.2, RBC 3.08 L, Hgb 8.1 L, Hct 26.0 L, MCV 84.4, MCH 26.3 L, MCHC 31.2 L, RDW Std Deviation 50.9 H, RDW Coeff of Zofia 16.5 H, Plt Count 240, MPV 10.5, Immature Gran % (Auto) 0.400, Neut % (Auto) 76.4 H, Lymph % (Auto) 9.1 L, [place] % (Auto) 12.1 H, Eos % (Auto) 1.6, Baso % (Auto) 0.4, Absolute Neuts (auto) 7.0, Absolute Lymphs (auto) 0.84, Nucleated RBC % 0 02/07/20 05:51: Sodium 141, Potassium 3.7, Chloride 111 H, Carbon Dioxide 25.0, Anion Gap 5, BUN 13, Creatinine 0.67, Estim Creat Clear Calc 37.26, Est GFR (MDRD) Af Amer 110, Est GFR (MDRD) Non-Af 91, BUN/Creatinine Ratio 19.4, Glucose 110 H, Calcium 8.0 L Current Medications Sodium Chloride () 1,000 mls @ 100 mls/hr IV .Q10H [facility] Last Admin: 02/07/20 02:36 Dose: 100 mls/hr Documented by: Sodium Chloride () 250 mls @ 15 mls/hr IV .[id number] PRN PRN Reason: Saline Flush Sodium Chloride () 250 mls @ 15 mls/hr IV .[id number] PRN PRN Reason: Additional IVPB Infusion Pantoprazole Sodium 40 mg/ (Sodium Chloride) 110 mls @ 330 mls/hr IV Q12 [facility] Last Infusion: 02/07/20 09:20 Dose: Infused Documented by: Nutritional Formula (Lactose Free) (Ensure Clear 120 Ml Liquid) 120 ml PO 4X/DAY [facility] Last Admin: 02/07/20 09:12 Dose: Not Given Documented by: Ondansetron HCl (Ondansetron 4 Mg/2 Ml Vial) 4 mg IV Q8H PRN PRN PRN Reason: NAUSEA/VOMITING Sodium Chloride (0.9% Saline Lock 10 Ml Syringe) 10 - 40 ml IV UD PRN PRN Reason: SALINE FLUSH Last Admin: 02/06/20 05:46 Dose: 10 ml Documented by: Medical Necessity - Tobacco Use Smoking Status: Never smoker Tobacco Use: Non-smoker Assessment/Plan All Active Problems (Last Reviewed 02/06/20 @ 02:[address] Robert Nuno MD) Blood loss anemia (Acute) GI bleed (Acute) Acute blood loss anemia (Acute) 79-year-old female with GI bleed, melena 1. Patient's hemoglobin is 8.1 after 3 units packed red blood cells from 4.5. Patient still having normal brown stools. We will plan to do a outpatient EGD and colonoscopy, will also do a follow-up CBC on Monday. Patient is scheduled to have a Mohs surgery on Monday on her left cheek. Patient will avoid aspirin or ibuprofen. Also start patient on Protonix 40 mg p.o. daily on . Patient will call the office to schedule the EGD and colonoscopy. Risks and benefits of the procedure were discussed with patient and she agreed to proceed. Joan Lawrence M.D. Pager: [phone] [facility] [address] [place] [address], [facility], [address] [place] [address] Office: [phone] Inpatient E&M: [id number] [facility] Hosp L2
--- NOTE | 2020-02-07 10:26 | PCM.DC ---
- Discharge Diagnoses Current Active Problems: Current Active and Chronic Problems (Last Reviewed 02/06/20 @ 02:[address] Robert Nuno MD) Blood loss anemia (Acute) GI bleed (Acute) Acute blood loss anemia (Acute) You will use the following diet at home:: No restrictions, Other Your food should be the consistency of: Regular Your liquids should be the consistency of: Regular/Thin Discharge Activity: Return to Normal Activity Call your doctor if you observe: - - increased fatigue. blood in stool. dark tarry stools. Allergies/Adverse Reactions: Allergies cephalexin Allergy (Verified 02/05/20 19:53) Unknown diclofenac Allergy (Verified 02/05/20 19:53) Unknown iodine Allergy (Verified 02/05/20 19:53) Unknown latex Allergy (Verified 02/05/20 19:53) Unknown levofloxacin Allergy (Verified 02/05/20 19:53) Unknown Penicillins Allergy (Verified 02/05/20 19:53) Unknown Medications to take at Discharge Calcium Carbonate [Calcium] 1,200 mg PO DAILY 02/05/20 Cholecalciferol (Vitamin D3) [D3-2000] 3,000 unit PO DAILY 02/05/20 Multivitamin/Iron/Folic Acid [Centrum Adults Tablet] 1 ea PO DAILY 02/05/20 Ferrous Sulfate 325 mg PO DAILY@0800 #30 tab 02/07/20 Pantoprazole Sodium [Protonix] 40 mg PO DAILY #30 tab 02/07/20 The following prescriptions were given: Ferrous Sulfate 325 mg PO DAILY@0800 #30 tab Transmission Status: Pending to [facility]/pharmacy #[id number] Pantoprazole Sodium [Protonix] 40 mg PO DAILY #30 tab Transmission Status: Received by [facility]pharmacy #[id number] Orders to be completed after discharge: CBC-Complete Blood Cnt No Diff Time Frame: 02/10/20, Facility: [facility], Location: Laboratory Primary Care Physician: Jagjit Matias DO [Primary Care Provider] - Within 2 Weeks Test Results: Test results from this visit will be discussed in further detail at your follow-up appointment, if applicable. Please Follow Up With: Joan Lawrence MD When: 1-2 weeks Proposed Discharge Date: 02/07/20
--- NOTE | 2020-02-07 10:27 | DS.PCM_ITS ---
Discharge Date and Diagnosis - Problem List Patient Problems: Active and Suspected Problems (Last Reviewed 02/06/20 @ 02:[address] Robert Nuno MD) Blood loss anemia (Acute) GI bleed (Acute) Acute blood loss anemia (Acute) Date of Admission: 02/05/20 Date of Discharge: 02/07/20 - Primary Discharge Diagnosis Acute Problems: Active Problems (Last Reviewed 02/06/20 @ 02:[address] Robert Nuno MD) Blood loss anemia (Acute) GI bleed (Acute) Acute blood loss anemia (Acute) Hospital Course and Treatment Operations: None Procedures: None Summary of Care Provided: The patient is a 79 year old F with abnormal labs. However patient was just feeling as though that she had contracted Covid again she was very fatigued. Patient was having melena. Patient had been recently diagnosed with an SVT and had been taking high-dose aspirin twice daily. She did note that she had a bout before starting aspirin but then again afterwards. Patient's hemoglobin was 4.5 when she presented. Patient was transfused a total of 3 units. Patient was seen in consultation by general surgery. Plan is since her hemoglobin has been stable, to follow-up general surgery as outpatient for endoscopy. In the meantime, patient will be on pantoprazole daily. Patient advised to discontinue the aspirin altogether. Patient also be on ferrous sulfate daily. Patient is otherwise doing well and will be discharged home in stable condition. [] Patient Problems: Active and Suspected Problems (Last Reviewed 02/06/20 @ 02:[address] Robert Nuno MD) Blood loss anemia (Acute) GI bleed (Acute) Acute blood loss anemia (Acute) - Physical Exam Vitals/I&O's: Vital Signs Temp Pulse Resp BP Pulse Ox 36.7 C 80 18 141/77 H 98 02/07/20 09:00 02/07/20 09:00 02/07/20 09:00 02/07/20 09:00 02/07/20 09:00 Oxygen Delivery Method Room Air Weight: 73.7 kg Body Mass Index (BMI) 29.7 Intake and Output for Last 24 Hours 02/05/20 02/06/20 02/07/20 23:59 23:59 23:59 Intake Total 0 / 0 2985 / 2985 1045 / 1045 Output Total 250 / 250 850 / 1150 1400 / 1400 Balance -250 / -250 2135 / 1835 -355 / -355 General: Alert, No apparent distress HEENT: Atraumatic, Normocephalic Oral: Moist Mucosa, No Gingival or Mucosal Lesions/ Ulcerations Psych/Mental Status: Normal Affect, Appropriate Microbiology Past 72 Hours 02/05/20 20:56 Stool Stool Occult Blood (TEREZA) - Final Laboratory Results 02/05/20 20:20: Crossmatch See Detail 02/06/20 15:22: WBC 6.7, RBC 3.07 L, Hgb 7.9 L, Hct 26.1 L, MCV 85.0, MCH 25.7 L , MCHC 30.3 L D, RDW Std Deviation 49.4 H, RDW Coeff of Zofia 15.9 H, Plt Count 240, MPV 9.7, Immature Gran % (Auto) 0.300, Neut % (Auto) 66.0, Lymph % (Auto) 16.4 L, [place] % (Auto) 14.6 H, Eos % (Auto) 2.4, Baso % (Auto) 0.3, Absolute Neuts (auto) 4.4, Absolute Lymphs (auto) 1.10, Nucleated RBC % 0 02/07/20 05:51: WBC 9.2, RBC 3.08 L, Hgb 8.1 L, Hct 26.0 L, MCV 84.4, MCH 26.3 L , MCHC 31.2 L, RDW Std Deviation 50.9 H, RDW Coeff of Zofia 16.5 H, Plt Count 240, MPV 10.5, Immature Gran % (Auto) 0.400, Neut % (Auto) 76.4 H, Lymph % (Auto) 9.1 L, [place] % (Auto) 12.1 H, Eos % (Auto) 1.6, Baso % (Auto) 0.4, Absolute Neuts (auto) 7.0, Absolute Lymphs (auto) 0.84, Nucleated RBC % 0 02/07/20 05:51: Sodium 141, Potassium 3.7, Chloride 111 H, Carbon Dioxide 25.0, Anion Gap 5, BUN 13, Creatinine 0.67, Estim Creat Clear Calc 37.26, Est GFR (MDRD) Af Amer 110, Est GFR (MDRD) Non-Af 91, BUN/Creatinine Ratio 19.4, Glucose 110 H, Calcium 8.0 L Current Medications Sodium Chloride () 1,000 mls @ 100 mls/hr IV .Q10H [facility] Last Admin: 02/07/20 02:36 Dose: 100 mls/hr Documented by: Sodium Chloride () 250 mls @ 15 mls/hr IV .[id number] PRN PRN Reason: Saline Flush Sodium Chloride () 250 mls @ 15 mls/hr IV .[id number] PRN PRN Reason: Additional IVPB Infusion Pantoprazole Sodium 40 mg/ (Sodium Chloride) 110 mls @ 330 mls/hr IV Q12 [facility] Last Infusion: 02/07/20 09:20 Dose: Infused Documented by: Nutritional Formula (Lactose Free) (Ensure Clear 120 Ml Liquid) 120 ml PO 4X/DAY [facility] Last Admin: 02/07/20 09:12 Dose: Not Given Documented by: Ondansetron HCl (Ondansetron 4 Mg/2 Ml Vial) 4 mg IV Q8H PRN PRN PRN Reason: NAUSEA/VOMITING Sodium Chloride (0.9% Saline Lock 10 Ml Syringe) 10 - 40 ml IV UD PRN PRN Reason: SALINE FLUSH Last Admin: 02/06/20 05:46 Dose: 10 ml Documented by: Discharge Diet: No Restrictions Discharge Activity: Return to Normal Activity Call your doctor if you observe: - - increased fatigue. blood in stool. dark tarry stools. Home Medications: Medications to take at Discharge Calcium Carbonate [Calcium] 1,200 mg PO DAILY 02/05/20 Cholecalciferol (Vitamin D3) [D3-2000] 3,000 unit PO DAILY 02/05/20 Multivitamin/Iron/Folic Acid [Centrum Adults Tablet] 1 ea PO DAILY 02/05/20 Ferrous Sulfate 325 mg PO DAILY@0800 #30 tab 02/07/20 Pantoprazole Sodium [Protonix] 40 mg PO DAILY #30 tab 02/07/20 Following Prescriptions Were Given to Patient: Ferrous Sulfate 325 mg PO DAILY@0800 #30 tab Transmission Status: [id number] Pantoprazole Sodium [Protonix] 40 mg PO DAILY #30 tab Transmission Status: Re[facility] by [id number] Other Amb Orders: CBC-Complete Blood Cnt No Diff Time Frame: 02/10/20, Facility: [facility], Location: Laboratory Primary Care Physician: Jagjit Matias DO [Primary Care Provider] - Within 2 Weeks Please Follow Up With: Joan Lawrence MD When: 1-2 weeks Disposition: Home Minutes spent on discharge:: 32 Patient Condition:: Good Medical Necessity - Tobacco Use Smoking Status: Never smoker Tobacco Use: Non-smoker Meaningful Use Info Meaningful Use Diagnoses (Choose all that apply): None applicable Inpatient E&M: [id number] [facility] Hosp
--- NOTE | 2020-02-07 11:55 | CASEMGMT ---
RN CM in to complete RN CM assessment at this time. Patient was discharged to home prior to assessment being completed. Patient is established with PCP. Patient is independent and lives with . No discharge needs identified.
[2020-02-07 14:25] LABS: Pathologist Review Reviewed
== END 2020-02-07 11:37 | disposition home or self-care (01) | DRG 378 ==
LOC: ED 21:26 → MS3 21:48
PROVIDERS: Admitting Provider Hospitalist; Emergency Provider Emergency Medicine; PCP Student in an Organized Health Care Education/Training Program
DX: K92.1 Melena (principal); D62 Acute posthemorrhagic anemia; Z86.19 Personal history of other infectious and parasitic diseases
CPT/HCPCS: 36415; 80048; 82274; 84484; 85014; 85018; 85025; 85610; 86850; 86900; 86901; 86920; 86922; 93005; 99282; J7030; J7040; P9016; A4216; J3490

== ENCOUNTER → 2020-02-10 10:17 | Outpatient (CLI) | payer MEDICARE, SELFPAY ==
[2020-02-05 22:31] VITALS: BMI 29.7
[2020-02-10 12:08] LABS: Hematocrit 30.1 % (37-47); Hemoglobin 8.6 g/dL (12.0-15.0); Mean Corp Hgb Conc 28.6 g/dL (32-36); Mean Corpuscular Hgb 24.9 pg (27.0-32.0); Mean Platelet Vol. 10.4 fl (6.2-12.0); Platelet Count 345 K/mm3 (150-450); RBC Distribution Width SD 57.4 fl (35.1-43.9); Red Blood Count 3.46 M/mm3 (4.2-5.4); White Blood Count 6.9 K/mm3 (4.4-11.0)
== END ==
PROVIDERS: PCP Student in an Organized Health Care Education/Training Program; Referring Provider Surgery; Visit Provider Surgery
DX: D50.0 Iron deficiency anemia secondary to blood loss (chronic) (principal)
CPT/HCPCS: 36415; 85027

== ENCOUNTER 2020-02-19 07:28 | Day surgery (SDC) | payer MEDICARE, SELFPAY ==
[2020-02-05 22:31] VITALS: BMI 29.7
--- NOTE | 2020-02-19 07:00 | HP_ITS ---
Patient Problems: Active and Suspected Problems (Last Reviewed 02/06/20 @ 02:[address] Robert Nuno MD) Blood loss anemia (Acute) GI bleed (Acute) Acute blood loss anemia (Acute) Subjective: Pt states she has had normal BM-brown over night; weakness resolved w 3 units PRBC - Physical Exam Vitals/I&O's: Vital Signs Temp Pulse Resp BP Pulse Ox 98.1 F 80 18 141/77 H 98 02/07/20 09:00 02/07/20 09:00 02/07/20 09:00 02/07/20 09:00 02/07/20 09:00 Oxygen Delivery Method Room Air Weight: 162 lb 7.691 oz Body Mass Index (BMI) 29.7 Intake and Output for Last 24 Hours 02/05/20 02/06/20 02/07/20 23:59 23:59 23:59 Intake Total 0 / 0 2985 / 2985 1045 / 1045 Output Total 250 / 250 850 / 1150 1400 / 1400 Balance -250 / -250 2135 / 1835 -355 / -355 General: Alert, Oriented x3, Cooperative, No apparent distress Lungs: Normal air movement Cardiovascular: Regular rate Abdomen: Soft, Non Tender, Non-Distended Extremities: No clubbing, No cyanosis Psych/Mental Status: Normal Affect Microbiology Past 72 Hours 02/05/20 20:56 Stool Stool Occult Blood (TEREZA) - Final Laboratory Results 02/05/20 20:20: Crossmatch See Detail 02/06/20 15:22: WBC 6.7, RBC 3.07 L, Hgb 7.9 L, Hct 26.1 L, MCV 85.0, MCH 25.7 L , MCHC 30.3 L D, RDW Std Deviation 49.4 H, RDW Coeff of Zofia 15.9 H, Plt Count 240, MPV 9.7, Immature Gran % (Auto) 0.300, Neut % (Auto) 66.0, Lymph % (Auto) 16.4 L, [place] % (Auto) 14.6 H, Eos % (Auto) 2.4, Baso % (Auto) 0.3, Absolute Neuts (auto) 4.4, Absolute Lymphs (auto) 1.10, Nucleated RBC % 0 02/07/20 05:51: WBC 9.2, RBC 3.08 L, Hgb 8.1 L, Hct 26.0 L, MCV 84.4, MCH 26.3 L , MCHC 31.2 L, RDW Std Deviation 50.9 H, RDW Coeff of Zofia 16.5 H, Plt Count 240, MPV 10.5, Immature Gran % (Auto) 0.400, Neut % (Auto) 76.4 H, Lymph % (Auto) 9.1 L, [place] % (Auto) 12.1 H, Eos % (Auto) 1.6, Baso % (Auto) 0.4, Absolute Neuts (auto) 7.0, Absolute Lymphs (auto) 0.84, Nucleated RBC % 0 02/07/20 05:51: Sodium 141, Potassium 3.7, Chloride 111 H, Carbon Dioxide 25.0, Anion Gap 5, BUN 13, Creatinine 0.67, Estim Creat Clear Calc 37.26, Est GFR (MDRD) Af Amer 110, Est GFR (MDRD) Non-Af 91, BUN/Creatinine Ratio 19.4, Glucose 110 H, Calcium 8.0 L Current Medications Sodium Chloride () 1,000 mls @ 100 mls/hr IV .Q10H [facility] Last Admin: 02/07/20 02:36 Dose: 100 mls/hr Documented by: Sodium Chloride () 250 mls @ 15 mls/hr IV .[id number] PRN PRN Reason: Saline Flush Sodium Chloride () 250 mls @ 15 mls/hr IV .[id number] PRN PRN Reason: Additional IVPB Infusion Pantoprazole Sodium 40 mg/ (Sodium Chloride) 110 mls @ 330 mls/hr IV Q12 [facility] Last Infusion: 02/07/20 09:20 Dose: Infused Documented by: Nutritional Formula (Lactose Free) (Ensure Clear 120 Ml Liquid) 120 ml PO 4X/DAY [facility] Last Admin: 02/07/20 09:12 Dose: Not Given Documented by: Ondansetron HCl (Ondansetron 4 Mg/2 Ml Vial) 4 mg IV Q8H PRN PRN PRN Reason: NAUSEA/VOMITING Sodium Chloride (0.9% Saline Lock 10 Ml Syringe) 10 - 40 ml IV UD PRN PRN Reason: SALINE FLUSH Last Admin: 02/06/20 05:46 Dose: 10 ml Documented by: Medical Necessity - Tobacco Use Smoking Status: Never smoker Tobacco Use: Non-smoker Assessment/Plan All Active Problems (Last Reviewed 02/06/20 @ 02:[address] Robert Nuno MD) Blood loss anemia (Acute) GI bleed (Acute) Acute blood loss anemia (Acute) 79-year-old female with GI bleed, melena 1. Patient's hemoglobin is 8.1 after 3 units packed red blood cells from 4.5. Patient still having normal brown stools. We will plan to do a outpatient EGD and colonoscopy, will also do a follow-up CBC on Monday. Patient is scheduled to have a Mohs surgery on Monday on her left cheek. Patient will avoid aspirin or ibuprofen. Also start patient on Protonix 40 mg p.o. daily on . Patient will call the office to schedule the EGD and colonoscopy. Risks and benefits of the procedure were discussed with patient and she agreed to proceed. Joan Lawrence M.D. Pager: [phone] [facility] [address] [place] [address], [facility], [address] [place] [address] Office: [phone] Inpatient E&M: [id number] [facility] L2
[2020-02-19 08:12] VITALS: BP 118/69; PULSE 74; RESP 18; TEMP 37.1; O2SAT 99; BMI 27.4
[2020-02-19] MEDS: Lactated Ringers 1,000 ML 100 ML IV ×2 (08:18→09:48)
--- NOTE | 2020-02-19 08:23 | HP.PCM_ITS ---
History of Present Illness Date of Admission: 02/19/20 The patient is a 79 year old F previously admitted due to weakness and history of melena in late January. Patient was diagnosed with Covid in early December and did quarantine. In December, she also had some melena which did improve however patient had some superficial blood clots and did take full dose aspirin which patient did admit to causing discomfort in her abdomen when she took it. Patient again noticed some melena which started on Monday (02/02/20) and continued for a few days patient did stop her aspirin after that. Patient currently states her stools are brown. On admit patient's hemoglobin was 4.5- got 3 units packed red blood cells in the hospital. Previous record of hemoglobin in October was 13 patient was previously also on iron due to iron deficiency anemia. Patient denies ever previously having blood per rectum. Patient was sent home on Protonix 40 mg p.o. daily. Patient states her last EGD and colonoscopy was for the iron deficiency anemia about 3 to [address] Hilliard patient states that they were negative at that time and all of her previous colonoscopies were negative and she had gotten 10 years. Patient states since discharge she was taking iron did stop the iron for the scope has still been having brown stool since then. Patient's last hemoglobin was 8.6 on 02/09, on discharge patient was 8.1.. Past Medical/Surgical History - Planned Operation Planned Operative Procedure/s: cscope/egd Date of Operative Procedure: 02/19/20 Permit Signed: No S.O.S: No Is This Patient Having a Total Joint: No - Previous Hospitalizations/Surgeries HX Hospitalizations: Yes - 01/2020 anemia HX of Surgeries: appendectomy. left thr. left shoulder replacement. right tkr. left tkr. cscope/egd Any Problems With Anesthesia: No You/Your Family Experience Fever (Hyperthermia) With Anes: No Cholinesterase deficiency: No - Cardiovascular Hx Chest Pain within Last 2 months: No Hx of Irregular Heartbeat and/or Afib: No Hx Heart Attack: No Hx Congestive Heart Failure: No Hx Rheumatic Fever: No Hx Hypertension: No Hx Internal Defibrillator: No Hx Pacemaker: No Hx Cardiac Catheterization: Yes - many yrs ago What facility was last heart cath performed: [facility] Date of last Heart Cath: yrs ago Hx Cardiac Surgery/Stents/Etc.: No Hx Stress Test: Yes - many yrs ago HX Edema: Yes - lower legs mild Hx Pain in Legs when Walking/Leg Cramps: No - Respiratory Chronic Cough: No HX of Shortness of Breath: No Hoarseness: No Hx Chronic Obstructive Pulmonary Disease (COPD): No Hx Asthma: No Hx Emphysema: No Hx Sleep Apnea: No Hx Oxygen Use at Home: No Hx Respiratory Tract Infection/Cold (presently): No Do You Snore Loudly (louder than talking or can be heard): No Do You Often Feel Tired/ Fatigued/ Sleepy Dring Daytime?: No Has Anyone Observed You Stop Breathing During Sleep?: No Result (for STOP score): Negative Hx Smoking: No Smoking Status: Never smoker - Gastrointestinal Hx Gastroesophageal Reflux: Yes Controlled With Meds: Yes Hx Gastrointestinal Disorders: No Hx Gastrointestinal Bleed: No Hx Ulcer: No Hx Hiatal Hernia: No Difficulty Chewing/Swallowing: No Recent Onset of Swallowing Problems: No Special diet followed at home: No Hx Unplanned Weight Loss of 20#: No HX Unplanned Weight Gain of 20#: No - Neurological Hx Seizures: No HX Syncope/Blackout Spells/Unconsciousness: No Hx CVA/Stroke: No Hx Transient Ischemic Attacks (TIA): No Hx Multiple Sclerosis: No Hx Parkinson's Disease: No Hx Head/Neck Injury: No Hx Headaches: No Hx Back Injury/Pain: No Recent Onset of Speech Difficulty: No Restless Legs: No Does patient have nerve stimulator: No Patient instructed to have device shut off: No Rep notified?: No - Blood Disorder Hx Leukemia: No Bleeding Tendencies: Yes - easily bruising Hx Deep Vein Thrombosis: No - superficial clot upper leg Hx High Cholesterol: No Blood Transmitted Disease: No Hx Hepatitis: No Hx Cirrhosis: No Hx Anemia: Yes - 01/2020 hospitalized with hgb of 4 Hx Blood Disorders: No - Reproduction : No Is Patient Lactating: No Hx Hysterectomy: No Hx Tubal Ligation: No Are You Post Menopause: Yes - Genitourinary Hx Renal Disease: No Hx Dialysis: No - Musculoskeletal Hx Arthritis: Yes - BOTH KNEES LT SHOULDER LEFT HIP Hx Rheumatoid Arthritis: No - Endocrine Hx Diabetes: No Thyroid Disease: No Hx Steroid Therapy: No - Psycho/Social Hx Substance Use: No Hx Alcohol Use: No Hx Anxiety: No Hx Depression: No Mental Illness: No Hx Dementia: No - Miscellaneous Hx Cancer: No Recent Exposure to Contagious Disease: No Active MRSA: No Hx of C-Diff: No Any Loose Teeth: No Allergies cephalexin Allergy (Verified 02/13/20 14:08) Unknown diclofenac Allergy (Verified 02/13/20 14:08) Unknown iodine Allergy (Verified 02/13/20 14:08) Unknown latex Allergy (Verified 02/13/20 14:08) Unknown levofloxacin Allergy (Verified 02/13/20 14:08) Unknown Penicillins Allergy (Verified 02/13/20 14:08) Unknown - Discharge Is Pt Admitted From a Retirement, or a Retirement: No After D/C, Where Do you Plan to Go: Return Home - From the PAT History Number of Risk Factors: 2 - Physical Exam Vitals/I&O's: Vital Signs Temp Pulse Resp BP Pulse Ox 98.8 F 74 18 118/69 99 02/19/20 08:12 02/19/20 08:12 02/19/20 08:12 02/19/20 08:12 02/19/20 08:12 Oxygen Delivery Method Room Air Weight: 154 lb 15.759 oz Body Mass Index (BMI) 27.4 General: Alert, Oriented x3, Cooperative, No apparent distress HEENT: Atraumatic Lungs: Normal air movement Cardiovascular: Regular rate Abdomen: Soft, Non Tender, Non-Distended Extremities: No clubbing, No cyanosis, No edema Neurological: Cranial nerves II-XII grossly intact Psych/Mental Status: Normal Affect Current Medications Lactated Ringer's () 1,000 mls @ 100 mls/hr IV .Q10H [facility] Last Admin: 02/19/20 08:18 Dose: 100 mls/hr Documented by: Assessment/Plan All Active Problems (Last Reviewed 02/06/20 @ 02:[address] Robert Nuno MD) Blood loss anemia (Acute) GI bleed (Acute) Acute blood loss anemia (Acute) 79-year-old female with melena, anemia -EGD and colonoscopy Procedure Criteria Procedure Type: Elective COVID Risk Discussion: The surgeon/proceduralist and patient have discussed in detail the risk of exposure to and/or potential harm posed by the COVID-19 virus with having a surgery/procedure at this time versus the risk of delaying the surgery/procedure. It is not possible to know either the risk of delaying the surgery or procedure or chance of getting an infection with perfect accuracy, but a joint decision was made between the patient and the surgeon/proceduralist to proceed at this time with the scheduled surgery/procedure as indicated on the consent form. Surgery Risks - Colonoscopy I discussed with the patient the risks of the procedure: Yes Risks Include but are not Limited To: Risks include but are not limited to: Bleeding, perforation requiring further surgery, inability to complete colonoscopy requiring barium enema.
[2020-02-19 08:30] LABS: Absolute Lymphocyte Count 0.88 X10^3/uL (0.83-4.51); Absolute Neutrophil Count 4.1 X10^3/uL (2.0-7.7); Basophil# 0.05 X10^3/uL; Basophil% 0.8 % (0-1); Eosinophil# 0.13 X10^3/uL; Eosinophils% 2.2 % (0-5); Hemoglobin 10.2 g/dL (12.0-15.0); Lymphocyte # 0.88 X10^3/ul (4.0); Lymphocyte % 14.7 % (19-41); Mean Corp Hgb Conc 29.1 g/dL (32-36); Mean Corpuscular Hgb 23.6 pg (27.0-32.0); Mean Platelet Vol. 10.4 fl (6.2-12.0); Monocyte# 0.84 X10^3/uL; Monocyte% 14.1 % (0-10); NRBC Flagged by Analyzer 0 % (0-5); Neutrophil # 4.05 X10^3/uL (2.7-7.7); Neutrophil % 67.9 % (47-70); Platelet Count 393 K/mm3 (150-450); RBC Distribution Width CV 18.3 % (11.6-14.6); RBC Distribution Width SD 54.2 fl (35.1-43.9); Red Blood Count 4.32 M/mm3 (4.2-5.4)
--- NOTE | 2020-02-19 08:45 | IMM_PTH ---
PATIENT: RHONDA HOLCOMB LOC: EN U#:[id number] AGE/SX: 79/F ROOM: RE02/19/[address]: Dr. Joan Lawrence MD : 1940 BED: DIS: 02/19/2020 SPEC #: [id number] RECD: 02/19/20 11:28 STATUS: KATHY REQ #: [id number] CECI: 02/19/20 08:[address]: Joan Lawrence DEPT: IMMUNOHISTOCHEMISTRY RECD BY: Brandi Vasques ENTERED: 02/19/20 11:29 SP TYPE: IMMUNO OTHR DR: Dr. Jagjit Matias, Tissues: A - Stomach, NOS Procedures: H Pylori (initial) PHYSICIAN & INSTITUTION [place] [id number] SPECIMEN INFORMATION: Tissue Source: A - Antrum biopsy Clinical Info: GI bleed, acute blood loss anemia Specimen Number: [id number] CPT code: 54659 METHODOLOGY: Deparaffinized sections of prefer/formalin-fixed tissue or PAP/DQ stained slides are incubated with monoclonal/polyclonal antibodies/oligonucleotide probes. Localization is made via biotin free immunoperoxidase method. Appropriate controls are performed and reacted as expected. Results on target cell population are indicated in the following table: RESULTS: ANTIBODY / CLONE RESULT Block A H Pylori (polyclonal) negative These tests were developed and their performance characteristics determined by [facility]. They may not have been cleared or approved by the U.S. Food and Drug Administration. The FDA has determined that such clearance or approval is not necessary. INTERPRETATION: A. Gastric antrum, biopsy: Negative for Helicobacter pylori organisms. AM:titus 02/20/20
--- NOTE | 2020-02-19 08:45 | EGD_PTH ---
PATIENT: RHONDA HOLCOMB LOC: EMIR U#:[id number] AGE/SX: 79/F ROOM: RE02/19/[address]: Dr. Joan Lawrence MD : 1940 BED: DIS: 02/19/2020 SPEC #: [id number] RECD: 02/19/20 10:23 STATUS: KATHY BELINDA #: [id number] CECI: 02/19/20 08:[address]: Joan Lawrence DEPT: SURGICAL PATHOLOGY RECD BY: Kizzy Marroquin ENTERED: 02/19/20 10:59 SP TYPE: EGD BIOPSY OTHR DR: Dr. Jagjit Matias, DO Tissues: A - Gastric mucous membrane B - Gastric mucous membrane C - Esophagus, NOS D - Gastric mucous membrane E - Esophagus, NOS F - Cecum, NOS G - Descending colon H - Sigmoid colon biopsy I - Rectum, NOS Procedures: Special Stain Group II Special Stain Group I Surgery Specimen Level IV GMS Stain (control) Alcian Blue/PAS (control) HEADER OPERATION: Colonoscopy, EGD ([facility]) PRE-OP DIAGNOSIS: GI bleed; acute blood loss anemia TISSUE SUBMITTED: A - Antrum biopsy for H. pylori and path, B - Biopsy of gastric polyp, C - Biopsy of distal esophagus, D - Biopsy of GE junction, E - Biopsy of upper esophagus, F - Biopsy of cecum polyp, G - Biopsy of descending polyp, H - Biopsy of sigmoid polyp, I - Biopsy of rectum polyp MICROSCOPIC DIAGNOSIS A. Gastric antrum, biopsy: Chronic gastritis. See comment. B. Gastric polyp, biopsy: Fundic gland polyp. C. Distal esophagus, biopsy: Ulceration with associated acute and chronic inflammation, granulation and fibrinoid degeneration. Negative for fungal organisms. See comment. D. GE junction, biopsy: Mild chronic inflammation. No evidence of goblet cell metaplasia. See comment. E. Upper esophagus, biopsy: Gastroesophageal junction mucosa with mild chronic inflammation. No evidence of goblet cell metaplasia. F. Cecal polyp, biopsy: Fragments of hyperplastic polyp. G. Descending colon polyp, biopsy: Fragments of hyperplastic polyp. H. Sigmoid colon polyp, biopsy: Fragments of tubular adenoma. I. Rectal polyp, biopsy: Fragments of hyperplastic polyp. AM:titus 02/20/20 COMMENT A. The results of immunohistochemistry for Helicobacter pylori will be reported separately ([id number]). B. GMS stain with matched control was used in the evaluation of this case. D. Alcian blue/PAS stain with matched control supports the above diagnosis. MICROSCOPIC DESCRIPTION Slides are reviewed. GROSS DESCRIPTION A - Received in fixative is one container labeled with the patient's name and designated antrum biopsy. The specimen consists of one irregular fragment of light aparicio soft tissue that measures 0.5 x 0.2 x 0.1 cm. The specimen is totally submitted in one cassette. B - Received in fixative is one container labeled with the patient's name and designated gastric polyp biopsy. The specimen consists of two irregular fragments of light aparicio soft tissue that in aggregate measure 0.3 x 0.2 x 0.1 cm. The specimen is totally submitted in one cassette. C - Received in fixative is one container labeled with the patient's name and designated distal esophagus biopsy. The specimen consists of one irregular fragment of light aparicio soft tissue that measures 0.5 x 0.2 x 0.1 cm. The specimen is totally submitted in one cassette. D - Received in fixative is one container labeled with the patient's name and designated GE junction biopsy. The specimen consists of one two irregular fragments of light aparicio soft tissue that in aggregate measure 0.5 x 0.2 x 0.1 cm. The specimen is totally submitted in one cassette. E - Received in fixative is one container labeled with the patient's name and designated upper esophagus biopsy. The specimen consists of one irregular fragment of light aparicio soft tissue that measures 0.2 x 0.2 x 0.1 cm. The specimen is totally submitted in one cassette. F - Received in fixative is one container labeled with the patient's name and designated cecal polyp biopsy. The specimen consists of one irregular fragment of light aparicio soft tissue that measures 0.5 x 0.3 x 0.1 cm. The specimen is totally submitted in one cassette. G - Received in fixative is one container labeled with the patient's name and designated descending polyp biopsy. The specimen consists of two irregular fragments of light aparicio soft tissue that in aggregate measure 0.5 x 0.3 x 0.1 cm. The specimen is totally submitted in one cassette. H - Received in fixative is one container labeled with the patient's name and designated sigmoid polyp biopsy. The specimen consists of three irregular fragments of light aparicio soft tissue that in aggregate measure 1 x 0.3 x 0.1 cm. The specimen is totally submitted in one cassette. I - Received in fixative is one container labeled with the patient's name and designated rectal polyp biopsy. The specimen consists of multiple irregular fragments of light aparicio soft tissue that in aggregate measure 0.7 x 0.6 x 0.1 cm. The specimen is totally submitted in one cassette. / AM:titus 02/19/20 TC:5 CPT: 91165 x9, 20628, 71009
[2020-02-19 09:37] VITALS: BP 118/69; BP 138/71; PULSE 74; RESP 16; TEMP 35.9; O2SAT 99
[2020-02-19 09:40] VITALS: BP 118/69; BP 132/116; PULSE 70; RESP 18; O2SAT 98
--- NOTE | 2020-02-19 09:42 | OP.EGD_ITS ---
Patient Name: Letha Castro Procedure Date: 02/19/2020 8:32 AM Date of : 1940 Age: 79 Procedure: Upper GI endoscopy Indications: Acute post hemorrhagic anemia, Melena Providers: Joan Lawrence MD Referring MD: Jagjit Matias Medicines: Monitored Anesthesia Care Patient Profile: This is a 79 year old female. Complications: No immediate complications. Procedure: Pre-Anesthesia Assessment: - Prior to the procedure, a History and Physical was performed, and patient medications and allergies were reviewed. The patient's tolerance of previous anesthesia was also reviewed. The risks and benefits of the procedure and the sedation options and risks were discussed with the patient. All questions were answered, and informed consent was obtained. Prior Anticoagulants: The patient has taken no previous anticoagulant or antiplatelet agents. ASA Grade Assessment: Per anesthesia. After reviewing the risks and benefits, the patient was deemed in satisfactory condition to undergo the procedure. After obtaining informed consent, the endoscope was passed under direct vision. Throughout the procedure, the patient's blood pressure, pulse, and oxygen saturations were monitored continuously. The gastroscope was introduced through the mouth, and advanced to the second part of duodenum. The upper GI endoscopy was accomplished without difficulty. The patient tolerated the procedure well. Scope In: 8:46:46 AM Scope Out: 8:55:37 AM Total Procedure Duration Time 0 hours 8 minutes 51 seconds Findings: The Z-line was irregular and was found 35 cm from the incisors. Biopsies were taken with a cold forceps for histology. Localized mild mucosal changes characterized by discoloration were found in the upper third of the esophagus. Biopsies were taken with a cold forceps for histology. Moderate mucosal changes characterized by linear erosions-healing- were found in the distal esophagus. Biopsies were taken with a cold forceps for histology. Mildly erythematous mucosa without bleeding was found in the gastric antrum. Biopsies were taken with a cold forceps for histology. Biopsies were taken with a cold forceps for Helicobacter pylori cultures. A 3 cm hiatal hernia was present. The examined duodenum was normal. Multiple less than 5 mm semi-sessile polyps with no bleeding and no stigmata of recent bleeding were found in the gastric body. The polyp was removed with a cold biopsy forceps. Resection and retrieval were complete. Impression: - Z-line irregular, 35 cm from the incisors. Biopsied. - Discolored mucosa in the esophagus. Biopsied. - Linearly eroded mucosa in the esophagus. Biopsied. - Erythematous mucosa in the antrum. Biopsied. - 3 cm hiatal hernia. - Normal examined duodenum. Recommendation: - Await pathology results. - Discharge patient to home. - Resume previous diet. - Continue present medications. - Use sucralfate tablets 1 gram PO QID for 2 weeks. Procedure Code(s): --- Professional --- 95000, Esophagogastroduodenoscopy, flexible, transoral; with biopsy, single or multiple Diagnosis Code(s): --- Professional --- K22.8, Other specified diseases of esophagus K22.10, Ulcer of esophagus without bleeding K31.89, Other diseases of stomach and duodenum K44.9, Diaphragmatic hernia without obstruction or gangrene D62, Acute posthemorrhagic anemia K92.1, Melena (includes Hematochezia) CPT copyright 2017 [employer]. All rights reserved. The codes documented in this report are preliminary and upon center line cutter operator review may be revised to meet current compliance requirements. MD Joan Hodgson MD 02/19/2020 9:41:29 AM This report has been signed electronically. Number of Addenda: 0 Note Initiated On: 02/19/2020 8:32 AM
--- NOTE | 2020-02-19 09:42 | OP.CCLET_ITS ---
02/19/2020 Jagjit Matias [address] [id number] Re : Upper GI endoscopy procedure for Letha Castro Dear Dr. Matias This procedure was performed on Wednesday, February 19, 2020. My impressions and recommendations are as follows: Impressions : - Z-line irregular, 35 cm from the incisors. Biopsied. - Discolored mucosa in the esophagus. Biopsied. - Linearly eroded mucosa in the esophagus. Biopsied. - Erythematous mucosa in the antrum. Biopsied. - 3 cm hiatal hernia. - Normal examined duodenum. Recommendations : - Await pathology results. - Discharge patient to home. - Resume previous diet. - Continue present medications. - Use sucralfate tablets 1 gram PO QID for 2 weeks. My findings are described in the full procedure note, which is enclosed. If I can be of further assistance, please feel free to contact me at Doctor phone number(s): , Work: . Sincerely, MD Joan Hodgson MD 02/19/2020 9:41:29 AM This report has been signed electronically.
--- NOTE | 2020-02-19 09:47 | OP.COLON_ITS ---
Patient Name: Letha Castro Procedure Date: 02/19/2020 8:56 AM Date of : 1940 Age: 79 Procedure: Colonoscopy Indications: Melena, Acute post hemorrhagic anemia Providers: Joan Lawrence MD Referring MD: Jagjit Matias Medicines: Monitored Anesthesia Care Patient Profile: This is a 79 year old female. This is a 79 year old female. Last Colonoscopy: 3-4 years ago. Complications: No immediate complications. Procedure: Pre-Anesthesia Assessment: - Prior to the procedure, a History and Physical was performed, and patient medications and allergies were reviewed. The patient's tolerance of previous anesthesia was also reviewed. The risks and benefits of the procedure and the sedation options and risks were discussed with the patient. All questions were answered, and informed consent was obtained. Prior Anticoagulants: The patient has taken no previous anticoagulant or antiplatelet agents. ASA Grade Assessment: Per anesthesia. After reviewing the risks and benefits, the patient was deemed in satisfactory condition to undergo the procedure. After I obtained informed consent, the scope was passed under direct vision. Throughout the procedure, the patient's blood pressure, pulse, and oxygen saturations were monitored continuously. The Colonoscope was introduced through the anus and advanced to the cecum, identified by the appendiceal orifice, ileocecal valve and palpation. The colonoscopy was performed without difficulty. The patient tolerated the procedure well. The quality of the bowel preparation was good. Scope In: 8:57:56 AM Scope Withdrawal Time 0 hours 21 minutes 57 seconds Scope Out: 9:31:28 AM Total Procedure Duration Time 0 hours 33 minutes 32 seconds Findings: Hemorrhoids were found on perianal exam. Non-bleeding internal hemorrhoids were found. The hemorrhoids were Grade I (internal hemorrhoids that do not prolapse). Four sessile polyps were found in the rectum, sigmoid colon, descending colon and cecum. The polyps were less than 5 mm in size. These polyps were removed with a cold biopsy forceps. Resection and retrieval were complete. Many small-mouthed diverticula were found in the sigmoid colon, descending colon, transverse colon and ascending colon. Impression: - Hemorrhoids found on perianal exam. - Non-bleeding internal hemorrhoids. - Four less than 5 mm polyps in the rectum, in the sigmoid colon, in the descending colon and in the cecum, removed with a cold biopsy forceps. Resected and retrieved. - Diverticulosis in the sigmoid colon, in the descending colon, in the transverse colon and in the ascending colon. Recommendation: - Discharge patient to home. - High fiber diet. - Continue present medications. - Await pathology results. - Repeat colonoscopy in 3 - 5 years for surveillance based on pathology results. Procedure Code(s): --- Professional --- 91283, Colonoscopy, flexible; with biopsy, single or multiple Diagnosis Code(s): --- Professional --- K64.0, First degree hemorrhoids K62.1, Rectal polyp D12.5, Benign neoplasm of sigmoid colon D12.4, Benign neoplasm of descending colon D12.0, Benign neoplasm of cecum K92.1, Melena (includes Hematochezia) D62, Acute posthemorrhagic anemia K57.30, Diverticulosis of large intestine without perforation or abscess without bleeding CPT copyright 2017 [employer]. All rights reserved. The codes documented in this report are preliminary and upon interface analyst review may be revised to meet current compliance requirements. MD Joan Hodgson MD 02/19/2020 9:47:23 AM This report has been signed electronically. Number of Addenda: 0 Note Initiated On: 02/19/2020 8:56 AM
--- NOTE | 2020-02-19 09:47 | OP.CCLET_ITS ---
02/19/2020 Jagjit Matias [address] [phone] Re : Colonoscopy procedure for Letha Castro Dear Dr. Matias This procedure was performed on Wednesday, February 19, 2020. My impressions and recommendations are as follows: Impressions : - Hemorrhoids found on perianal exam. - Non-bleeding internal hemorrhoids. - Four less than 5 mm polyps in the rectum, in the sigmoid colon, in the descending colon and in the cecum, removed with a cold biopsy forceps. Resected and retrieved. - Diverticulosis in the sigmoid colon, in the descending colon, in the transverse colon and in the ascending colon. Recommendations : - Discharge patient to home. - High fiber diet. - Continue present medications. - Await pathology results. - Repeat colonoscopy in 3 - 5 years for surveillance based on pathology results. My findings are described in the full procedure note, which is enclosed. If I can be of further assistance, please feel free to contact me at Doctor phone number(s): , Work: . Sincerely, MD Joan Hodgson MD 02/19/2020 9:47:23 AM This report has been signed electronically.
[2020-02-19 09:49] VITALS: BP 118/69; BP 120/96; PULSE 66; RESP 18; O2SAT 97
[2020-02-19 09:50] VITALS: BP 118/69; BP 131/95; PULSE 68; RESP 18; TEMP 36.4; O2SAT 98
[2020-02-19 10:19] VITALS: BP 118/69
== END 2020-02-19 10:30 | disposition home or self-care (01) ==
LOC: EN 07:28 → AC 07:28
PROVIDERS: PCP Student in an Organized Health Care Education/Training Program; Referring Provider Student in an Organized Health Care Education/Training Program; Visit Provider Surgery
PROC: 0DJD8ZZ Inspection of Lower Intestinal Tract, Via Natural or Artificial Opening Endoscopic (ICD-10-PCS; CPT 45378; principal; 2020-02-19 08:40)
DX: K22.8 Other specified diseases of esophagus (principal); K22.10 Ulcer of esophagus without bleeding; K29.50 Unspecified chronic gastritis without bleeding; K31.7 Polyp of stomach and duodenum; K44.9 Diaphragmatic hernia without obstruction or gangrene; K64.0 First degree hemorrhoids; K62.1 Rectal polyp; D12.0 Benign neoplasm of cecum; D12.4 Benign neoplasm of descending colon; D12.5 Benign neoplasm of sigmoid colon; D62 Acute posthemorrhagic anemia; K57.30 Diverticulosis of large intestine without perforation or abscess without bleeding; K21.9 Gastro-esophageal reflux disease without esophagitis; K92.1 Melena; Z88.0 Allergy status to penicillin; Z88.1 Allergy status to other antibiotic agents; Z86.19 Personal history of other infectious and parasitic diseases
CPT/HCPCS: 43239; 45380; 85025; 88305; 88312; 88313; 88342; J7120; J2405

== ENCOUNTER 2021-05-08 20:22 | Observation (INO) | payer MEDICARE, SELFPAY ==
[2021-05-08 20:23] VITALS: BP 105/69; PULSE 106; RESP 16; TEMP 36.7; O2SAT 94; BMI 27.8
--- NOTE | 2021-05-08 20:43 | EDS_ITS ---
HPI History of Present Illness Chief Complaint: Weakness Narrative Narrative: Patient presents with generalized weakness for the past few days, she has noticed some epigastric tenderness and dark stools for the past week. She has some nausea. She does not feel lightheaded. No vomiting. She is not on blood thinners, she does not take any prescribed medications. No recent NSAIDs, she eats a reasonable diet, she does not drink alcohol PFSH PFS Medical History Abnormal Pap smear of cervix Anemia Iron deficiency Home Medications calcium carbonate 1,200 mg PO DAILY 02/05/20 [History Last Taken Unknown] cholecalciferol (vitamin D3) 3,000 unit PO DAILY 02/05/20 [History Last Taken Unknown] xkqdseksxqxm-ieev-nbopy acid 1 ea PO DAILY 02/05/20 [History Last Taken Unknown] ferrous sulfate 325 mg PO DAILY@0800 #30 tab 02/07/20 [Rx Last Taken Unknown] sucralfate 1 gm PO 4X/DAY #56 tab 02/19/20 [Rx Last Taken Unknown] pantoprazole 40 mg tablet,delayed release See Rx Instructions .ROUTE .COMPLEX #90 tablet 06/05/20 [Rx Last Taken Unknown] Allergy/AdvReac Type Severity Reaction Status Date / Time cephalexin Allergy Unknown Verified 05/08/21 20:25 diclofenac Allergy Unknown Verified 05/08/21 20:25 iodine Allergy Unknown Verified 05/08/21 20:25 latex Allergy Unknown Verified 05/08/21 20:25 levofloxacin Allergy Unknown Verified 05/08/21 20:25 Penicillins Allergy Unknown Verified 05/08/21 20:25 Family History Father Diabetes Cancer prostate bone Sister Breast cancer Hyperlipidemia Mother Hyperlipidemia Surgical History (Updated 05/08/21 @ 20:43 by Mary Ann Romero) H/O shoulder replacement History of bilateral knee replacement History of hip replacement Hx of appendectomy Social History (Updated 05/30/17 @ 15:19 by Gilma Massey NP, [employer]) Smoking Status: Never smoker alcohol intake: never substance use type: does not use caffeine: Yes what type of physical activity do you participate in: walking frequency: 3-4 times per week seatbelt use: always do you feel safe at home: Yes additional social history: 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 Medications: Reviewed Social history: Noncontributory Review of systems: All systems negative except as indicated General: No fever. Generalized weakness as in HPI Eyes: No visual changes ENT: No upper airway congestion, normal voice Neck: No neck pain Cardiovascular: No chest pain Respiratory: No shortness of breath or cough Gastrointestinal: Some nausea and epigastric pain, dark stools as in HPI Genitourinary: No dysuria Musculoskeletal: Denies myalgias no difficulty with ambulation Skin: No rash Neurological: No memory loss, confusion or any focal weakness Psych: No recent behavioral changes Hematologic: No easy bleeding or easy bruising EXAM Physical Exam Narrative Exam Narrative: Physical exam General: Well nourished, Well developed, No Acute Distress she appears relatively comfortable in the bed Head: Normocephalic, Atraumatic Eyes: Pale conjunctiva otherwise normal ENT: Moist mucous membranes Neck: Supple, Nontender, No lymphadenopathy Cardiovascular: Regular rate, Regular rhythm Respiratory: No distress, CTA bilaterally Abdomen: Soft, minimal epigastric tenderness no guarding or rebound no right upper quadrant pain. No lower abdominal pain. Rectal: She does have dark and almost black stools otherwise I do not see any hemorrhoids or fissures. Back: Nontender, Normal Inspection. Negative for: CVA tenderness Extremities: Nontender, No edema Skin: Pallor noted otherwise no rash. Neurological: Alert, Normal Strength, Normal Sensation Psychological: Normal affect Const Vital Signs: 05/08/21 20:23 Temperature 98.1 F Temperature Source Temporal Pulse Rate 106 H Respiratory Rate 16 Blood Pressure 105/69 Blood Pressure Mean 81 Pulse Ox 94 Oxygen Delivery Method Room Air Discharge Plan Triage Chief Complaint: Weakness ED Provider: [place] Dx/Rx/DC Orders Prescriptions: No Action cholecalciferol (vitamin D3) 50 MCG capsule 3,000 unit PO DAILY RF: 0 jjhuuxahjuyd-klas-kjofl acid 1 EACH tablet 1 ea PO DAILY RF: 0 calcium carbonate 600 MG tablet 1,200 mg PO DAILY RF: 0 ferrous sulfate 325 MG tablet 325 mg PO DAILY@0800 Qty: 30 RF: 0 sucralfate 1 GM tablet 1 gm PO 4X/DAY Qty: 56 RF: 0 pantoprazole 40 mg tablet,delayed release (DR/EC) See Rx Instructions .ROUTE .COMPLEX Qty: 90 RF: 1 Primary Care Provider: Jagjit Matias
[2021-05-08 21:07] LABS: Absolute Lymphocyte Count 1.91 X10^3/uL (0.83-4.51); Absolute Neutrophil Count 5.8 X10^3/uL (2.0-7.7); Basophil# 0.03 X10^3/uL; Basophil% 0.3 % (0-1); Eosinophils% 1.1 % (0-5); Hemoglobin 6.7 g/dL (12.0-15.0); Lymphocyte # 1.91 X10^3/ul (0.83-4.51); Lymphocyte % 21.4 % (19-41); Mean Corp Hgb Conc 31.9 g/dL (32-36); Mean Corpuscular Hgb 28.3 pg (27.0-32.0); Mean Corpuscular Volume 88.6 fL (81-99); Mean Platelet Vol. 10.5 fl (6.2-12.0); Monocyte# 0.95 X10^3/uL; Monocyte% 10.6 % (0-10); NRBC Flagged by Analyzer 0.2 % (0-5); Neutrophil # 5.78 X10^3/uL (2.7-7.7); Neutrophil % 64.8 % (47-70); Platelet Count 237 K/mm3 (150-450); RBC Distribution Width CV 14.3 % (11.6-14.6); Red Blood Count 2.37 M/mm3 (4.2-5.4); White Blood Count 8.9 K/mm3 (4.4-11.0)
[2021-05-08 21:27] LABS: ALB/GLOB Ratio 0.9 RATIO (0.9-2.4); AST(SGOT) 17 U/L (15-37); Alanine Aminotransfer ALT/SGPT 20 U/L (13-56); Albumin, Serum 2.5 g/dL (3.2-5.0); Alkaline Phosphatase 75 U/L (45-117); Anion Gap 6 (5-15); BUN 56 mg/dL (7-18); BUN/Creat Ratio 55.4 RATIO (10-20); Calcium,Total 8.5 mg/dL (8.5-10.1); Chloride 110 mmol/L (98-107); Creatinine, Serum 1.01 mg/dL (0.55-1.02); EST Glomerular Filtration Rate 56 mL/min (>60); Est Glom Filt Rate - Afr Amer 68 mL/min (>60); Estimated Creatinine Clearance 34.64 ml/min; Globulin 2.8 g/dL (2.2-4.2); Glucose 237 mg/dL (74-106); Potassium 4.1 mmol/L (3.5-5.1); Protein, Total 5.3 g/dL (6.4-8.2); Sodium Level 141 mmol/L (136-145)
[2021-05-08 21:34] LABS: International Normalized Ratio 1.2
[2021-05-08 21:49] VITALS: BP 104/55; PULSE 95; RESP 18; O2SAT 96
--- NOTE | 2021-05-08 21:53 | HP.PCM.HOS_ITS ---
HPI - General HPI Narrative RHONDA HOLCOMB, is a 80 F with a significant history of iron deficiency anemia; and essential tremors affecting predominantly her right upper extremity who presents to the emergency department with 1 week history of persistent dark stools. Associated with her symptoms is tremors; lightheadedness and nausea. Last time her bowels moved was on the same day of presentation. She is unsure whether she has any abdominal pain. Emergency department doctor reported dark stools that was positive for occult blood upon rectal exams at the ED. Patient was scheduled to see her PCP on 05/11/2021 and had lab work scheduled for 05/10/2021. However because of her persistence symptoms her family urged her to come to the emergency department. Patient report that about a year and a half ago she had a very low hemoglobin a nd she received 3 units of blood. Upper and lower endoscopy at that time was unremarkable. She was put on Protonix. She wean herself out of Protonix about 6 weeks to a month ago. She is on a daily aspirin for health maintenance. She does not have any stent. [facility] Medical History Abnormal Pap smear of cervix Anemia Iron deficiency Home Medications calcium carbonate 1,200 mg PO DAILY 02/05/20 [History Last Taken Unknown] cholecalciferol (vitamin D3) 3,000 unit PO DAILY 02/05/20 [History Last Taken Unknown] aciulnzfulkp-neid-fhtxz acid 1 ea PO DAILY 02/05/20 [History Last Taken Unknown] ferrous sulfate 325 mg PO DAILY@0800 #30 tab 02/07/20 [Rx Last Taken Unknown] Allergy/AdvReac Type Severity Reaction Status Date / Time cephalexin Allergy Unknown Verified 05/08/21 20:25 diclofenac Allergy Unknown Verified 05/08/21 20:25 iodine Allergy Unknown Verified 05/08/21 20:25 latex Allergy Unknown Verified 05/08/21 20:25 levofloxacin Allergy Unknown Verified 05/08/21 20:25 Penicillins Allergy Unknown Verified 05/08/21 20:25 Family History Father Diabetes Cancer prostate bone Sister Breast cancer Hyperlipidemia Mother Hyperlipidemia Surgical History H/O shoulder replacement History of bilateral knee replacement History of hip replacement Hx of appendectomy Social History Smoking Status: Never smoker alcohol intake: never substance use type: does not use caffeine: Yes what type of physical activity do you participate in: walking frequency: 3-4 times per week seatbelt use: always do you feel safe at home: Yes additional social history: Zay- 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 Denies dyspnea on exertion, orthopnea and paroxysmal nocturnal dyspnea Respiratory/Chest: Denies cough, excessive phlegm production, shortness of breath with exertion and wheezing Gastrointestinal: Reports nausea and dark stools. Denies coffee-ground emesis, constipation , diarrhea, dyspepsia, hematemesis, hematochezia, loose stools, vomiting or other Genitourinary: Denies burning urination, difficulty urinating, dysuria, hematuria, nocturia, urinary frequency, urinary hesitancy, urinary incontinence, urinary urgency or other Musculoskeletal: Denies arthralgias, back pain, joint pain, joint stiffness, joint swelling, myalgias, neck pain or other Neurologic: Reported tremors. Denies abnormal gait, abnormal speech, confusion, disequilibrium, focal weakness, headache(s), numbness, paresthesias, seizure- like activity, seizures, syncope, tingling, or other Psychiatric: Denies anxiety, depression, homicidal ideation, suicidal ideation or other Endocrinology: Denies change in body appearance, cold intolerance, excessive sweating, heat intolerance, polydipsia, polyuria or other Hematologic/Lymphatic: Denies easy bruising, lymphadenopathy or other Integumentary: Denies rashes Allergic/Immunologic: Denies rhinitis, hives, eczema, asthma or other Vital Signs Vital Signs Vital Signs: 05/08/21 20:23 05/08/21 20:41 05/08/21 21:49 Temperature 98.1 F Temperature Source Temporal Pulse Rate 106 H 95 Respiratory Rate 16 18 Respiratory Pattern Normal Blood Pressure 105/69 104/55 L Blood Pressure Mean 81 71 Pulse Ox 94 96 Oxygen Delivery Method Room Air Room Air Weight Weight: 66.678 kg Body Mass Index (BMI) 27.8 Physical Exam Narrative Physical exam: General: Well-nourished, well-developed. Head: Normocephalic, atraumatic, no tenderness Eyes: Ecchymosis of left upper eyelids. PERRLA, EOMI ENT, no trauma, moist mucous membranes, no rhinorrhea Neck: Nontender, full range of motion, no spinal tenderness, deformities, step- off CVS: Regular rate and rhythm. S1-S2 present. No murmur, gallop or rub. Respiratory : clear to auscultation bilaterally, chest wall nontender, no wheezing Abdomen: Soft, nontender, nondistended, normal bowel sounds, no masses : Deferred Back: Nontender, no CVA tenderness, no midline spinal tenderness, deformities, step-offs Extremities: Nontender full range of motion, no trauma Skin: Mildly pale. No trauma, abrasions Neuro: Alert, oriented, cranial nerves II through XII grossly intact. Psychiatry: Normal mood. Normal affect. Not depressed. Not anxious. Results Lab / Micro Data Result Diagrams: 05/08/21 20:50 05/08/21 20:50 Labs: Laboratory Results - last 24 hr 05/08/21 20:50: WBC 8.9, RBC 2.37 L, Hgb 6.7 L, Hct 21.0 L, MCV 88.6, MCH 28.3, MCHC 31.9 L, RDW Std Deviation 45.0 H, RDW Coeff of Zofia 14.3, Plt Count 237, MPV 10.5, Immature Gran % (Auto) 1.800 H, Neut % (Auto) 64.8, Lymph % (Auto) 21.4, Owsley % (Auto) 10.6 H, Eos % (Auto) 1.1, Baso % (Auto) 0.3, Absolute Neuts (auto) 5.8, Absolute Lymphs (auto) 1.91, Nucleated RBC % 0.2 02/26/22 20:50: PT 15.0 H, INR 1.2 05/08/21 20:50: Sodium 141, Potassium 4.1, Chloride 110 H, Carbon Dioxide 25.0, Anion Gap 6, BUN 56 H, Creatinine 1.01, Estim Creat Clear Calc 34.64, Est GFR (MDRD) Af Amer 68, Est GFR (MDRD) Non-Af 56 L, BUN/Creatinine Ratio 55.4 H, Glucose 237 H, Calcium 8.5, Total Bilirubin 0.20, AST 17, ALT 20, Alkaline Phosphatase 75, Total Protein 5.3 L, Albumin 2.5 L, Globulin 2.8, Albumin/Gl obulin Ratio 0.9 05/08/21 20:50: Crossmatch See Detail Micro: Microbiology 05/08/21 20:35 Stool Stool Occult Blood (TEREZA) - Final Occult Blood Positive Assessment & Plan Assessment/Plan (1) Acute blood loss anemia: (2) GI bleed: QUALIFIERS: GI bleed type/associated pathology: melena Qualified Code(s): K92.1 - Melena PLAN: Acute blood loss anemia secondary to likely upper GI bleed. Review of labs showed hemoglobin of 6.7. Tachycardia with heart rate of 95 to 112. BUN of 56 on presentation which is way above previous BUN. Review of previous labs showed an on 02/05/2020 patient hemoglobin was 4.5. There after her hemoglobin picked up and that could be secondary to blood transfusion. On 02/19/2020 her hemoglobin was 10.2. Review of community records shows that on 01/29/2021 hemoglobin was 13.4; on 08/04/2020 hemoglobin was 13.5; and on 06/05/2020 hemoglobin was 13.9. PT/INR on presentation was 15/1.2. Patient is to receive 2 units of packed red blood cells ordered at the ED. Order to check H&H 1 hour after second unit of blood has been transfused. Gentle IV hydration. Protonix drip ordered. Discussed the case with general surgery. Will keep patient n.p.o. after midnight. Hold home aspirin. No chemical thromboprophylaxis. Acute hyperglycemia Blood glucose of 237 on presentation. Check A1c; of note could be inaccurate if bleeding has been going on for a long time. BMP in a.m. VANDA Creatinine of 1.01 on presentation higher than baseline. On hospital system creatinine on 02/07/2020 was 0.67 and on 02/06/2020 it was 0.83. Review of community records show that on 01/29/2021 and creatinine was 0.72. Likely pre-renal from GI. Blood transfusion and IVF hydration as above. Avoid nephrotoxins. Trend BMP. Iron deficiency anemia Review of community records shows that on 01/30/2020 her ferritin was 73.4, low normal; iron was 57, low normal; and TIBC was 302. Iron transfusion as above. DVT prophylaxis: SCDs ordered. Charges/Coding Visit Charges Inpatient E&M: 18685 Init Hosp L3
--- NOTE | 2021-05-08 22:13 | ED.RN ---
PT STATES SHE TAKES OTC ZINC, ELDERBERRY, AND IRON, BUT DOES NOT KNOW THE DOSES
[2021-05-08 22:17] VITALS: BP 124/54; PULSE 112; RESP 18; TEMP 36.6; O2SAT 98
[2021-05-08 22:51] VITALS: BMI 28.5
[2021-05-08 23:19] VITALS: BP 108/66; PULSE 92; RESP 18; TEMP 36.7; O2SAT 96
[2021-05-09] VITALS (12 sets, daily range): BP systolic 99–135; BP diastolic 48–68; PULSE 72–87; RESP 18–20; TEMP 36.2–37; O2SAT 94–100
[2021-05-09] MEDS: 0.9% Normal Saline 1,000 ML 75 ML IV ×3 (00:01→20:20)
--- NOTE | 2021-05-09 02:39 | NURSING ---
0118 blood vitals should be changed to 0230. first unit of PRBC transfused at 0230
[2021-05-09 06:21] LABS: Hematocrit 22.9 % (37-47); Hemoglobin 7.7 g/dL (12.0-15.0)
[2021-05-09 06:47] LABS: Anion Gap 2 (5-15); BUN 44 mg/dL (7-18); BUN/Creat Ratio 73.9 RATIO (10-20); Calcium,Total 8.1 mg/dL (8.5-10.1); Chloride 118 mmol/L (98-107); EST Glomerular Filtration Rate 104 mL/min (>60); Est Glom Filt Rate - Afr Amer 125 mL/min (>60); Estimated Creatinine Clearance 34.99 ml/min; Glucose 126 mg/dL (74-106); Potassium 4.2 mmol/L (3.5-5.1); Sodium Level 145 mmol/L (136-145)
[2021-05-09 07:13] LABS: Hemoglobin A1c 5.4 % (3.8-5.6)
--- NOTE | 2021-05-09 10:28 | CON.PCM.SX_ITS ---
Assessment & Plan Assessment/Plan (1) GI bleed: QUALIFIERS: GI bleed type/associated pathology: melena Qualified Code(s): K92.1 - Melena (2) Acute blood loss anemia: PLAN: Patient has had no further maroon stools. She is not having any hematemesis or hematochezia. Her hemoglobin did come up after the blood. Given the fact that she is not having an acute blood loss at this time and since she has been off of her proton pump inhibitor for almost 2 months I believe the best thing to do is to see what her hemoglobin is later today and possibly tomorrow restart her on her proton pump inhibitor and if things remain stable that she can be discharged and follow-up with me on an outpatient basis. I do not see any benefit of doing an upper and lower endoscopy on her when there is almost little chance of doing anything therapeutic on her. If however her hemoglobin were to drop again then the next appropriate test for her would be a bleeding scan. HPI Consult Data Date of Consult: 05/09/21 HPI Narrative HPI Narrative: RHONDA HOLCOMB, is a 80 F who presents a significant history of iron deficiency anemia; and essential tremors affecting predominantly her right upper extremity who presents to the emergency department with 1 week history of persistent dark stools. Associated with her symptoms is tremors; lightheadedness and nausea. Last time her bowels moved was on the same day of presentation. She is unsure whether she has any abdominal pain. Emergency department doctor reported dark stools that was positive for occult blood upon rectal exams at the ED. Patient was scheduled to see her PCP on 05/11/2021 and had lab work scheduled for 05/10/2021. However because of her persistence symptoms her family urged her to come to the emergency department. Patient report that about a year and a half ago she had a very low hemoglobin and she received 3 units of blood. Upper and lower endoscopy at that time was unremarkable. She was put on Protonix. She wean herself out of Protonix about 6 weeks to a month ago. She is on a daily aspirin for health maintenance. She does not have any stent. Back in February 2020 she presented with melena lower scope for polyps were removed no obvious sign of bleeding was identified. She had several large and small mouth diverticuli throughout the sigmoid colon. She also underwent an upper scope which showed her Z-line to be at 35 cm some discolored mucosa of the esophagus with some linear erosions. She had a 3 cm hiatal hernia and her duodenum was normal at that time. [facility] Medical History Abnormal Pap smear of cervix Anemia GERD (gastroesophageal reflux disease) Iron deficiency Home Medications calcium carbonate 1,200 mg PO DAILY 02/05/20 [History Last Taken Unknown] cholecalciferol (vitamin D3) 3,000 unit PO DAILY 02/05/20 [History Last Taken Unknown] gxrtxapthobz-hfwh-hldqj acid 1 ea PO DAILY 02/05/20 [History Last Taken Unknown] ferrous sulfate 325 mg PO DAILY@0800 05/08/21 [History Last Taken Unknown] Allergy/AdvReac Type Severity Reaction Status Date / Time cephalexin Allergy Unknown Verified 05/08/21 20:25 diclofenac Allergy Unknown Verified 05/08/21 20:25 iodine Allergy Unknown Verified 05/08/21 20:25 latex Allergy Unknown Verified 05/08/21 20:25 levofloxacin Allergy Unknown Verified 05/08/21 20:25 Penicillins Allergy Unknown Verified 05/08/21 20:25 Family History Father Diabetes Cancer prostate bone Sister Breast cancer Hyperlipidemia Mother Hyperlipidemia Surgical History H/O shoulder replacement History of bilateral knee replacement History of hip replacement Hx of appendectomy Social History Smoking Status: Never smoker alcohol intake: never substance use type: does not use caffeine: Yes what type of physical activity do you participate in: walking frequency: 3-4 times per week seatbelt use: always do you feel safe at home: Yes additional social history: [employer]- 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 Constitutional Constitutional: Denies anorexia, chills or fatigue ENT HEENT: Denies dysphagia Cardiovascular Cardiovascular: Denies chest pain Respiratory/Chest Respiratory/Chest: Denies cough or dyspnea Gastrointestinal Gastrointestinal: Reports melena; Denies abdominal pain Physical Exam Const alert, oriented x3 and no apparent distress General Appearance: cooperative HEENT normocephalic and head/scalp atraumatic Eyes PERRL and EOMs intact bilaterally Resp clear to auscultation bilaterally Cardio Rate: regular rate Rhythm: regular rhythm GI soft to palpation, non-tender and non-distended Lab / Micro Data Result Diagrams: 05/09/21 06:10 05/09/21 06:10 Labs: Laboratory Results - last 24 hr 05/08/21 20:50: WBC 8.9, RBC 2.37 L, Hgb 6.7 L, Hct 21.0 L, MCV 88.6, MCH 28.3, MCHC 31.9 L, RDW Std Deviation 45.0 H, RDW Coeff of Zofia 14.3, Plt Count 237, MPV 10.5, Immature Gran % (Auto) 1.800 H, Neut % (Auto) 64.8, Lymph % (Auto) 21.4, [place] % (Auto) 10.6 H, Eos % (Auto) 1.1, Baso % (Auto) 0.3, Absolute Neuts (auto) 5.8, Absolute Lymphs (auto) 1.91, Nucleated RBC % 0.2 05/08/21 20:50: PT 15.0 H, INR 1.2 05/08/21 20:50: Sodium 141, Potassium 4.1, Chloride 110 H, Carbon Dioxide 25.0, Anion Gap 6, BUN 56 H, Creatinine 1.01, Estim Creat Clear Calc 34.64, Est GFR (MDRD) Af Amer 68, Est GFR (MDRD) Non-Af 56 L, BUN/Creatinine Ratio 55.4 H, Glucose 237 H, Calcium 8.5, Total Bilirubin 0.20, AST 17, ALT 20, Alkaline Phosphatase 75, Total Protein 5.3 L, Albumin 2.5 L, Globulin 2.8, Albumin/Globulin Ratio 0.9 05/08/21 20:50: Blood Type A POSITIVE, Antibody Screen NEGATIVE 05/08/21 20:50: Crossmatch See Detail 05/09/21 06:10: Sodium 145, Potassium 4.2, Chloride 118 H, Carbon Dioxide 25.0, Anion Gap 2 L, BUN 44 H, Creatinine 0.60, Estim Creat Clear Calc 34.99, Est GFR (MDRD) Af Amer 125, Est GFR (MDRD) Non-Af 104, BUN/Creatinine Ratio 73.9 H, Glucose 126 H, Calcium 8.1 L 05/09/21 06:10: Hemoglobin A1c 5.4 05/09/21 06:10: Hgb 7.7 L, Hct 22.9 L Micro: Microbiology 05/08/21 20:35 Stool Stool Occult Blood (TEREZA) - Final Occult Blood Positive
[2021-05-09 10:57] LABS: Absolute Lymphocyte Count 1.64 X10^3/uL (0.83-4.51); Absolute Neutrophil Count 4.9 X10^3/uL (2.0-7.7); Basophil# 0.03 X10^3/uL; Basophil% 0.4 % (0-1); Eosinophil# 0.12 X10^3/uL; Eosinophils% 1.5 % (0-5); Hematocrit 22.9 % (37-47); Hemoglobin 7.5 g/dL (12.0-15.0); Lymphocyte # 1.64 X10^3/ul (0.83-4.51); Mean Corp Hgb Conc 32.8 g/dL (32-36); Mean Corpuscular Hgb 28.7 pg (27.0-32.0); Mean Corpuscular Volume 87.7 fL (81-99); Mean Platelet Vol. 9.7 fl (6.2-12.0); Monocyte# 0.98 X10^3/uL; Monocyte% 12.5 % (0-10); NRBC Flagged by Analyzer 0 % (0-5); Neutrophil # 4.88 X10^3/uL (2.7-7.7); Neutrophil % 62.4 % (47-70); Platelet Count 161 K/mm3 (150-450); RBC Distribution Width CV 14.3 % (11.6-14.6); RBC Distribution Width SD 44.6 fl (35.1-43.9); Red Blood Count 2.61 M/mm3 (4.2-5.4); White Blood Count 7.8 K/mm3 (4.4-11.0)
--- NOTE | 2021-05-09 13:55 | PN.HOSP_ITS ---
Subjective Subjective Patient seen and examined. She had no complaints and has not had any further dark stools since admission. She denies any lightheadedness, dizziness, nausea vomiting and review of systems otherwise negative. Review of symptoms otherwise negative. She remains on IV PPI. Objective Data Objective Data Vital Signs: Vital Signs Temp Pulse Resp BP Pulse Ox 97.2 F L 72 20 H 122/65 H 98 05/09/21 08:50 05/09/21 08:50 05/09/21 08:50 05/09/21 08:50 05/09/21 08:50 Oxygen Delivery Method Room Air Weight: 151 lb 7.321 oz Body Mass Index (BMI) 28.5 Intake & Output: Intake and Output for Last 24 Hours 05/07/21 05/08/21 05/09/21 23:59 23:59 23:59 Intake Total 110 / 110 1729.50 / 1729.50 Output Total 500 / 500 Balance 110 / 110 1229.50 / 1229.50 Lab / Micro Data Result Diagrams: 05/09/21 10:47 05/09/21 06:10 Labs: Laboratory Results - last 24 hr 05/08/21 20:50: WBC 8.9, RBC 2.37 L, Hgb 6.7 L, Hct 21.0 L, MCV 88.6, MCH 28.3, MCHC 31.9 L, RDW Std Deviation 45.0 H, RDW Coeff of Zofia 14.3, Plt Count 237, MPV 10.5, Immature Gran % (Auto) 1.800 H, Neut % (Auto) 64.8, Lymph % (Auto) 21.4, [place] % (Auto) 10.6 H, Eos % (Auto) 1.1, Baso % (Auto) 0.3, Absolute Neuts (auto) 5.8, Absolute Lymphs (auto) 1.91, Nucleated RBC % 0.2 05/08/21 20:50: PT 15.0 H, INR 1.2 05/08/21 20:50: Sodium 141, Potassium 4.1, Chloride 110 H, Carbon Dioxide 25.0, Anion Gap 6, BUN 56 H, Creatinine 1.01, Estim Creat Clear Calc 34.64, Est GFR (MDRD) Af Amer 68, Est GFR (MDRD) Non-Af 56 L, BUN/Creatinine Ratio 55.4 H, Gl ucose 237 H, Calcium 8.5, Total Bilirubin 0.20, AST 17, ALT 20, Alkaline Phosphatase 75, Total Protein 5.3 L, Albumin 2.5 L, Globulin 2.8, [place] min/Globulin Ratio 0.9 05/08/21 20:50: Blood Type A POSITIVE, Antibody Screen NEGATIVE 05/08/21 20:50: Crossmatch See Detail 05/09/21 06:10: Sodium 145, Potassium 4.2, Chloride 118 H, Carbon Dioxide 25.0, Anion Gap 2 L, BUN 44 H, Creatinine 0.60, Estim Creat Clear Calc 34.99, Est GFR (MDRD) Af Amer 125, Est GFR (MDRD) Non-Af 104, BUN/Creatinine Ratio 73.9 H, Glucose 126 H, Calcium 8.1 L 05/09/21 06:10: Hemoglobin A1c 5.4 05/09/21 06:10: Hgb 7.7 L, Hct 22.9 L 05/09/21 10:47: WBC 7.8, RBC 2.61 L, Hgb 7.5 L, Hct 22.9 L, MCV 87.7, MCH 28.7, MCHC 32.8, RDW Std Deviation 44.6 H, RDW Coeff of Zofia 14.3, Plt Count 161, MPV 9.7, Immature Gran % (Auto) 2.200 H, Neut % (Auto) 62.4, Lymph % (Auto) 21.0, [place] % (Auto) 12.5 H, Eos % (Auto) 1.5, Baso % (Auto) 0.4, Absolute Neuts (auto) 4.9, Absolute Lymphs (auto) 1.64, Nucleated RBC % 0 Micro: Microbiology 05/08/21 20:35 Stool Stool Occult Blood (TEREZA) - Final Occult Blood Positive Physical Exam Const oriented x3 and no apparent distress Exam Limitations: no limitations HEENT head/scalp atraumatic and moist oral mucous membranes Head and Scalp: normocephalic Eyes PERRL, EOMs intact bilaterally and conjunctivae normal Neck no lymphadenopathy Resp normal respiratory effort, no retractions, no use of accessory muscles and clear to auscultation bilaterally Cardio regular rate, regular rhythm, S1 normal heart sound, S2 normal heart sound and no murmurs GI normal to inspection, nondistended, normoactive bowel sounds, soft to palpation, non-tender and non-distended Extremity normal to inspection, full ROM and no clubbing, cyanosis or edema Peripheral Pulses: Yes pulses 2+ throughout Skin no rashes or lesions noted Neuro oriented x3, CN's II-XII intact bilaterally and moves all extremities Sensorium / Orientation: awake and alert Psych affect normal Assessment & Plan Assessment/Plan (1) Blood loss anemia: (2) GI bleed: QUALIFIERS: GI bleed type/associated pathology: melena Qualified Code(s): K92.1 - Melena PLAN: #Acute on chronic anemia due to acute GI bleed * Patient is s/p 2 units of packed red blood cells. * Had lightheadedness and nausea have resolved. She has not had any more dark stools since admission. * Stool for occult blood was positive. * Patient states she was taken off of her PPI several months ago by her PCP who did not think she needed it anymore according to her. * General surgery consulted. Dr. López reviewed patient and recommends holding off on any scopes for now as he does not think anything will change in terms of therapeutic management. This is because he thinks that patient symptoms and clinical findings are due to the fact that she was taken off her PPI for several weeks * Plan is therefore to get serial H&H to trend hemoglobin. If hemoglobin remains stable, then will start on p.o. PPI tomorrow and for likely discharge home. Hemoglobin trends down then this may be a justification for further work-up. * Of note, patient states she had an upper and lower scope about a year and a half ago which were normal. * #Acute hyperglycemia: Resolved #VANDA: Resolved #Acute on chronic iron deficiency anemia * Iron studies from January 2020 showed evidence of iron deficiency anemia. * Has been transfused 2 units of packed red blood cells during this admission. * On oral iron supplements. On Multivites well as folic acid. * DVT prophylaxis: SCDs Charges/Coding Visit Charges Inpatient E&M: 00917 Subs Hosp L2
[2021-05-10 02:44] VITALS: BP 117/62; PULSE 76; RESP 18; TEMP 36.6; O2SAT 96
[2021-05-10 06:50] LABS: Absolute Lymphocyte Count 1.09 X10^3/uL (0.83-4.51); Absolute Neutrophil Count 2.8 X10^3/uL (2.0-7.7); Basophil# 0.03 X10^3/uL; Basophil% 0.6 % (0-1); Eosinophil# 0.16 X10^3/uL; Eosinophils% 3.3 % (0-5); Hematocrit 22.9 % (37-47); Hemoglobin 7.5 g/dL (12.0-15.0); Lymphocyte # 1.09 X10^3/ul (0.83-4.51); Lymphocyte % 22.4 % (19-41); Mean Corp Hgb Conc 32.8 g/dL (32-36); Mean Corpuscular Hgb 29.1 pg (27.0-32.0); Mean Corpuscular Volume 88.8 fL (81-99); Mean Platelet Vol. 9.9 fl (6.2-12.0); Monocyte# 0.72 X10^3/uL; Monocyte% 14.8 % (0-10); NRBC Flagged by Analyzer 0 % (0-5); Neutrophil # 2.77 X10^3/uL (2.7-7.7); Platelet Count 173 K/mm3 (150-450); RBC Distribution Width SD 47.1 fl (35.1-43.9); Red Blood Count 2.58 M/mm3 (4.2-5.4); White Blood Count 4.9 K/mm3 (4.4-11.0)
[2021-05-10 08:10] VITALS: BP 127/69; PULSE 72; RESP 16; TEMP 36.6; O2SAT 100
--- NOTE | 2021-05-10 10:15 | CASEMGMT ---
RN CM Face to Face with patient for initial transition planning/care coordination assessment. RN CM introduced self and role at [facility]. Patient lying in bed, alert and oriented. Patient willing to participate in assessment and is able to answer all questions appropriately. Care providers, pharmacy, and demographics verified. Patient wishes to discharge home, denies need for home health at this time. Patient states she has no further needs or concerns at this time. CM to follow for discharge planning needs that may arise. PCP: Florencio Specialists: none [facility] Prescription Benefit: yes Living Will/HPOA: yes, daughter Zora Castro LNOK: , daughter Living Arrangements: Patient lives with in a 3 story home. Patient states she is independent and able to ambulate stairs at home. Transportation: self, DME/HHC: patient states she has grab bars at home. Patient denies previous HHC or SNF. Disposition Plan: Patient to discharge home with family support and follow-up plans in place. Hamida NOEL, RN, CM
--- NOTE | 2021-05-10 11:29 | PCM.DC.SUM ---
Providers Date of Admission: 05/08/21 Date of Discharge: 05/10/21 Primary Care Physician: Dr. Jagjit Matias, DO Consultations 05/08/21 22:57 Consult: General Surgery Routine Consulting Provider: Justen López Reason for Consult: YOBANI EMERGENT Consult: No MD Notified: Yes Date Notified: 05/08/21 Time Notified: 22:08 Method of Notification: Verbal Reason For Visit: ACUTE BLOOD LOSS ANEMIA Diagnosis Discharge Diagnosis (1) Blood loss anemia: Status: Acute Code(s): D50.0 - Iron deficiency anemia secondary to blood loss (chronic) (2) GI bleed: Status: Acute Code(s): K92.2 - Gastrointestinal hemorrhage, unspecified Qualifiers: GI bleed type/associated pathology: melena Qualified Code(s): K92.1 - Melena Medications at Discharge Home Medications calcium carbonate 1,200 mg PO DAILY 02/05/20 cholecalciferol (vitamin D3) 3,000 unit PO DAILY 02/05/20 xcfnisjzuxoh-owve-mhvia acid 1 ea PO DAILY 02/05/20 ferrous sulfate 325 mg PO DAILY@0800 05/08/21 pantoprazole [Protonix] 40 mg PO DAILY #30 tab 05/10/21 Hospital Course Procedures Blood transfusion (2 units packed red blood cells) Summary of Care Provided Minutes Spent on Discharge: 36 Hospital Course: Mrs. Castro is a 80-year-old white female who presented to the emergency department [facility] on 05/08/2021 with a 1 week history of persistent dark school stools associated with lightheadedness and nausea. She had a bowel movement on the day of presentation and did not have any noted significant abdominal pain. A guaiac stool was performed in the emergency department and found to be positive. She was scheduled to see her PCP on 05/11/2021 and had lab work scheduled for 05/10/2021 however because of her persistent symptoms her family urged her to come to the emergency department. Evidently approximately 1-1/2 years ago she was found to have a very low hemoglobin and received 3 units of packed red blood cells at which time an EGD and a colonoscopy were performed and found to be unremarkable. She was placed on Protonix at that time but recently had weaned herself off about 6 weeks prior to presentation as directed by her PCP. She had also recently started a daily baby aspirin for health maintenance but does not have any history of coronary disease or stroke. On admission she was placed on a Protonix drip and admitted to the medical floor. She was transfused 2 units of packed red blood cells and general surgery was consulted. After admission she had no further maroon stools and was not having any hematemesis or hematochezia. Repeat EGD and colonoscopies were not recommended as she just had had them done on 02/19/2020 without any significant findings at that time. Her hemoglobin did come up after her blood infusion and had stabilized at 7.4 x 48 hours now and she is tolerating a p.o. diet without any difficulty. On 05/10/2021 she remained stable and was cleared for discharge by Dr. López with follow-up in his office in 1 week. She was discharged on oral Protonix 40 mg daily, instructed to discontinue her aspirin as she does not take this for coronary disease or stroke and follow-up with Dr. López in 1 week. She is also been instructed to follow-up with her primary care physician in 1 week as well. Discharge diagnoses: Acute blood loss anemia GI bleed Chronic iron deficiency anemia VANDA-resolved Vitamin D deficiency Physical Exam Const alert, oriented x3, no apparent distress, no limitations, healthy appearing and well nourished Constitutional Narrative: Overweight, elderly white female sitting up in bed, appears comfortable, nontoxic, very pleasant, anxious to go home as she states she is feeling very well General Appearance: cooperative, comfortable, well kempt and well developed Orientation / Consciousness: awake Exam Limitations: no limitations Nutritional Appearance: overweight HEENT normocephalic, head/scalp atraumatic, hearing grossly normal bilaterally and moist oral mucous membranes HEENT Narrative: Mallampati is 2, no thrush, dentition is fair for age Eyes PERRL and EOMs intact bilaterally Eyes Narrative: Mild conjunctival pallor, no scleral icterus Neck no lymphadenopathy, supple and no JVD Neck Narrative: Trachea midline, no thyroid enlargement Resp normal respiratory effort, no retractions, no use of accessory muscles and clear to auscultation bilaterally Auscultation: Negative for crackles, rales, rhonchi or wheezes Cardio regular rate, regular rhythm, S1 normal heart sound, S2 normal heart sound, no murmurs, no rub, no gallops, no clicks and no JVD GI normal to inspection, nondistended, normoactive bowel sounds, soft to palpation, non-tender and non-distended Extremity no clubbing, cyanosis or edema Skin no rashes or lesions noted, no wounds, skin turgor normal and no jaundice Skin Narrative: Skin is slightly pale Neuro oriented x3, CN's II-XII intact bilaterally, moves all extremities, no focal motor deficits and no sensory deficits noted Sensorium / Orientation: awake and alert Speech: speech normal Psych affect normal Weight / BMI Weight Weight: 68.7 kg Body Mass Index (BMI) 28.5 ABG / Lab / Microbiology Data Result Diagrams: 05/10/21 06:40 05/09/21 06:10 Laboratory: Laboratory Results - last 24 hr 05/10/21 06:40: WBC 4.9, RBC 2.58 L, Hgb 7.5 L, Hct 22.9 L, MCV 88.8, MCH 29.1, MCHC 32.8, RDW Std Deviation 47.1 H, RDW Coeff of Zofia 15.0 H, Plt Count 173, MPV 9.9, Immature Gran % (Auto) 1.900 H, Neut % (Auto) 57.0, Lymph % (Auto) 22.4, [place] % (Auto) 14.8 H, Eos % (Auto) 3.3, Baso % (Auto) 0.6, Absolute Neuts (auto) 2.8, Absolute Lymphs (auto) 1.09, Nucleated RBC % 0 Microbiology: Microbiology 05/08/21 20:35 Stool Stool Occult Blood (TEREZA) - Final Occult Blood Positive D/C Instructions Discharge Diet: Light diet - advance as tolerated Meaningful Use Info Meaningful Use Diagnoses (Choose all that apply): None applicable Discharge Plan Admission Admit Date/Time: 05/08/21 21:48 Primary Reason for Your Visit: Weakness Attending Provider: Kylah Bailey Primary Care Provider: Jagjit Matias Consulting Providers: Justen López Instructions Additional Instructions / Restrictions: 1. Stop baby asprin Discharge Orders/Prescriptions Prescriptions: New pantoprazole [Protonix] 40 mg tablet,delayed release (DR/EC) 40 mg PO DAILY Qty: 30 RF: 1 Continued cholecalciferol (vitamin D3) 50 MCG capsule 3,000 unit PO DAILY RF: 0 ibtexvhvisit-cjti-ghsdx acid 1 EACH tablet 1 ea PO DAILY RF: 0 calcium carbonate 600 MG tablet 1,200 mg PO DAILY RF: 0 ferrous sulfate 325 MG tablet 325 mg PO DAILY@0800 RF: 0 Referrals / Follow Up: Justen López MD [STAFF PHYSICIAN] - Within 2 Weeks Jagjit Matias DO [Primary Care Provider] - Within 2 Weeks Disposition Disposition (needs filled in before D/C Order can be placed): Home, Self Care Charges/Coding Visit Charges Inpatient E&M: 39840 Disch Hosp
--- NOTE | 2021-05-10 12:26 | PN.SURG_ITS ---
Subjective Subjective No abdominal pain. No nausea or vomiting. Has not had a bowel movement yet. Objective Data Objective Data Abdomen is soft and nontender Vital Signs: Vital Signs Temp Pulse Resp BP Pulse Ox 97.8 F 72 16 127/69 H 100 05/10/21 08:10 05/10/21 08:10 05/10/21 08:10 05/10/21 08:10 05/10/21 08:10 Oxygen Delivery Method Room Air Weight: 151 lb 7.321 oz Body Mass Index (BMI) 28.5 Intake & Output: Intake and Output for Last 24 Hours 05/08/21 05/09/21 05/10/21 23:59 23:59 23:59 Intake Total 110 / 110 2512.92 / 2512.92 1041.33 / 1041.33 Output Total 700 / 700 Balance 110 / 110 1812.92 / 1812.92 1041.33 / 1041.33 Lab / Micro Data Result Diagrams: 05/10/21 06:40 05/09/21 06:10 Labs: Laboratory Results - last 24 hr 05/10/21 06:40: WBC 4.9, RBC 2.58 L, Hgb 7.5 L, Hct 22.9 L, MCV 88.8, MCH 29.1, MCHC 32.8, RDW Std Deviation 47.1 H, RDW Coeff of Zofia 15.0 H, Plt Count 173, MPV 9.9, Immature Gran % (Auto) 1.900 H, Neut % (Auto) 57.0, Lymph % (Auto) 22.4, [place] % (Auto) 14.8 H, Eos % (Auto) 3.3, Baso % (Auto) 0.6, Absolute Neuts (auto) 2.8, Absolute Lymphs (auto) 1.09, Nucleated RBC % 0 Micro: Microbiology 05/08/21 20:35 Stool Stool Occult Blood (TEREZA) - Final Occult Blood Positive Assessment & Plan Assessment/Plan (1) GI bleed: QUALIFIERS: GI bleed type/associated pathology: melena Qualified Code(s): K92.1 - Melena (2) Blood loss anemia: PLAN: Okay to discharge the patient today will follow up in the office
[2021-05-10 13:28] VITALS: O2SAT 94
[2021-05-10 13:39] VITALS: BP 120/60; PULSE 88; RESP 16; TEMP 36.7; O2SAT 99
== END 2021-05-10 14:09 | disposition home or self-care (01) | DRG 378 ==
LOC: ED 21:05 → MS3 22:56
PROVIDERS: Student in an Organized Health Care Education/Training Program; Admitting Provider Hospitalist; Emergency Provider Emergency Medicine; PCP Student in an Organized Health Care Education/Training Program; Visit Provider Internal Medicine
DX: K92.1 Melena (principal); N17.9 Acute kidney failure, unspecified; D62 Acute posthemorrhagic anemia; E55.9 Vitamin D deficiency, unspecified; E66.3 Overweight; R73.9 Hyperglycemia, unspecified; Z68.28 Body mass index [BMI] 28.0-28.9, adult; Z79.899 Other long term (current) drug therapy; G25.0 Essential tremor
CPT/HCPCS: 36415; 36430; 80048; 80053; 82274; 83036; 85014; 85018; 85025; 85610; 86850; 86900; 86901; 86920; 86922; 96361; 96365; 96366; 99221; 99284; J7030; J7040; P9016; A4216; G0378

== ENCOUNTER 2021-05-13 09:37 | Emergency (ER) | payer MEDICARE, SELFPAY ==
[2021-05-13 09:38] VITALS: BP 77/63; PULSE 88; RESP 16; TEMP 36.2; O2SAT 100; BMI 27.8
--- NOTE | 2021-05-13 10:15 | EX.ED.DYSGE1 ---
HPI History of Present Illness Chief Complaint: GI Bleed Narrative Narrative: 75-year-old female was recently admitted here from 05/08 through 05/10 for GI bleed. She received 2 units of blood and was discharged home with plan to follow-up for colonoscopy with Dr. López next week. She discontinued aspirin 81 mg since she went home. She reports persistent black stool and intermittent lightheadedness. She had blood work drawn yesterday morning and states her hemoglobin dropped to below 7 so her doctor told her to come to the ER. Of note she does report a GI bleed 1 year ago and states she had normal endoscopy/colonoscopy. She is not presently on a PPI. She denies vomiting, chest pain, shortness of breath, or abdominal pain. [facility] Medical History Abnormal Pap smear of cervix Anemia GERD (gastroesophageal reflux disease) Iron deficiency Home Medications calcium carbonate 1,200 mg PO DAILY 02/05/20 [History Last Taken 05/12/21] cholecalciferol (vitamin D3) 3,000 unit PO DAILY 02/05/20 [History Last Taken 05/12/21] kiuzsbsttrnb-uvts-viasr acid 1 ea PO DAILY 02/05/20 [History Last Taken 05/12/21] ferrous sulfate 325 mg PO DAILY@0800 05/08/21 [History Last Taken 05/12/21] pantoprazole [Protonix] 40 mg PO DAILY #30 tab 05/10/21 [Rx Last Taken 05/13/21] docusate sodium 100 mg PO BID 05/13/21 [History Last Taken 05/12/21] Allergy/AdvReac Type Severity Reaction Status Date / Time cephalexin Allergy Unknown Verified 05/13/21 09:38 diclofenac Allergy Unknown Verified 05/13/21 09:38 iodine Allergy Unknown Verified 05/13/21 09:38 latex Allergy Unknown Verified 05/13/21 09:38 levofloxacin Allergy Unknown Verified 05/13/21 09:38 Penicillins Allergy Unknown Verified 05/13/21 09:38 Family History Father Diabetes Cancer prostate bone Sister Breast cancer Hyperlipidemia Mother Hyperlipidemia Surgical History H/O shoulder replacement History of bilateral knee replacement History of hip replacement Hx of appendectomy Social History Smoking Status: Never smoker alcohol intake: never substance use type: does not use caffeine: Yes what type of physical activity do you participate in: walking frequency: 3-4 times per week seatbelt use: always do you feel safe at home: Yes additional social history: [employer]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 Eyes: Negative for visual change. ENT: Negative for sore throat, ear pain, rhinorrhea. CVS: Negative for palpitations, chest pain, syncope. Respiratory: Negative for shortness of breath, cough, orthopnea. GI: Positive for melena. Negative for abdominal pain, nausea, vomiting, diarrhea, constipation, hematochezia. : Negative for dysuria, hematuria or frequency. Neuro: Negative for headache, motor/sensory dysfunction. Skin: Negative for rash, abscess, or wound. Musc: Negative for joint pain, swelling, trauma. Heme: Negative for easy bruising, bleeding, lymphadenopathy. EXAM Physical Exam Narrative Exam Narrative: CONST: Patient sitting in no acute distress. EYES: Normal inspection. ENT: Normal inspection, moist mucous membranes. NECK: Normal inspection. RESP: No respiratory distress, CTAB. CVS: Regular rate and rhythm, no murmur, no gallop. ABD: Soft and nontender, no guarding or rebound, nondistended. Back: Normal inspection. SKIN: Color normal, no rash, warm, dry, intact. EXTREMITIES: Normal appearance, no pedal edema. NEURO: Oriented x4. PSYCH: Normal affect. Const Vital Signs: 05/13/21 09:38 05/13/21 10:41 05/13/21 16:24 Temperature 97.2 F L Temperature Source Temporal Pulse Rate 88 77 Pulse Rate [Lying] 78 Pulse Rate [Sitting (for 1 minute prior to obtaining)] 76 Pulse Rate [Standing (for 1 minute prior to obtaining)] 85 Respiratory Rate 16 16 Blood Pressure 77/63 L 141/66 H Blood Pressure [Lying] 128/63 H Blood Pressure [Sitting (for 1 minute prior to obtaining)] 130/61 H Blood Pressure [Standing (for 1 minute prior to obtaining)] 125/73 H Blood Pressure Mean 67 91 Blood Pressure Mean [Lying] 84 Blood Pressure Mean [Sitting (for 1 minute prior to obtaining)] 84 Blood Pressure Mean [Standing (for 1 minute prior to obtaining)] 90 Pulse Ox 100 100 Oxygen Delivery Method Room Air MDM MDM MDM Narrative Medical decision making narrative: Patient was recently admitted for GI bleed and has an upcoming colonoscopy scheduled. She appears well and nontoxic. BP in triage was listed as 77/63, but has been persistently 120s/60s or higher during the entirety of her ED stay. The rest of her vital signs are normal. Her medical exam is unremarkable. Hemoglobin is stable at 7.4. I spoke with Dr. López because he is scheduled to see her next week and he recommended a bleeding nuclear medicine scan which was obtained and is negative. With stable hemoglobins and normal vital signs the patient is stable to follow-up for her scheduled colonoscopy. I have recommended 1 unit of blood since she is feeling slightly symptomatic but she declined. She is taking a PPI. She was counseled to return for new or worsening symptoms and was discharged in stable condition. Diagnoses 1. Anemia 2. History of GI bleed Lab Data Labs: Laboratory Results - last 24 hr 05/13/21 05/13/21 05/13/21 10:20 10:20 10:20 WBC 5.2 RBC 2.48 L Hgb 7.1 L Hct 22.8 L MCV 91.9 MCH 28.6 MCHC 31.1 L D RDW Std Deviation 50.6 H RDW Coeff of Zofia 15.2 H Plt Count 250 MPV 9.6 Immature Gran % (Auto) 1.200 H Neut % (Auto) 63.5 Lymph % (Auto) 20.7 Finney % (Auto) 12.8 H Eos % (Auto) 1.2 Baso % (Auto) 0.6 Absolute Neuts (auto) 3.3 Absolute Lymphs (auto) 1.07 Nucleated RBC % 0 PT 13.3 INR 1.1 Sodium 144 Potassium 3.5 Chloride 114 H Carbon Dioxide 27.0 Anion Gap 3 L BUN 23 H Creatinine 0.82 Estim Creat Clear Calc 42.67 Est GFR (MDRD) Af Amer 87 Est GFR (MDRD) Non-Af 72 BUN/Creatinine Ratio 28.1 H Glucose 115 H Calcium 8.6 Total Bilirubin 0.40 AST 18 ALT 23 Alkaline Phosphatase 82 Total Protein 5.7 L Albumin 2.7 L Globulin 3.0 Albumin/Globulin Ratio 0.9 Blood Type Antibody Screen Crossmatch 05/13/21 05/13/21 12:35 16:20 WBC 5.8 RBC 2.58 L Hgb 7.4 L Hct 23.8 L MCV 92.2 MCH 28.7 MCHC 31.1 L RDW Std Deviation 51.9 H RDW Coeff of Zofia 15.4 H Plt Count 187 MPV 10.4 Immature Gran % (Auto) 0.900 Neut % (Auto) 63.5 Lymph % (Auto) 22.5 Finney % (Auto) 11.8 H Eos % (Auto) 1.0 Baso % (Auto) 0.3 Absolute Neuts (auto) 3.7 Absolute Lymphs (auto) 1.30 Nucleated RBC % 0 PT INR Sodium Potassium Chloride Carbon Dioxide Anion Gap BUN Creatinine Estim Creat Clear Calc Est GFR (MDRD) Af Amer Est GFR (MDRD) Non-Af BUN/Creatinine Ratio Glucose Calcium Total Bilirubin AST ALT Alkaline Phosphatase Total Protein Albumin Globulin Albumin/Globulin Ratio Blood Type Cancelled Antibody Screen Cancelled Crossmatch See Detail Radiography Diagnostic Testing: Clinical Impression(s) from Imaging Studies GI Bleed Scan Nuclear Medicine 05/13/21 13:32 IMPRESSION: 1. NEGATIVE 99m Tc ULTRATAG LABELED BLOOD POOL GASTROINTESTINAL BLEEDING EXAMINATION. 2. There is no definitive scintigraphic evidence of acute gastrointestinal hemorrhage on the current evaluation. Electronically Signed: Juancarlos Smallwood DO at 16:23 EST , Discharge Plan Triage Chief Complaint: GI Bleed ED Provider: Ana Meeks Dx/Rx/DC Orders Clinical Impression: Anemia Instructions: Anemia Prescriptions: No Action cholecalciferol (vitamin D3) 50 MCG capsule 3,000 unit PO DAILY RF: 0 kiszryecerhn-lbgv-hfpjv acid 1 EACH tablet 1 ea PO DAILY RF: 0 calcium carbonate 600 MG tablet 1,200 mg PO DAILY RF: 0 ferrous sulfate 325 MG tablet 325 mg PO DAILY@0800 RF: 0 pantoprazole [Protonix] 40 mg tablet,delayed release (DR/EC) 40 mg PO DAILY Qty: 30 RF: 1 docusate sodium 100 mg capsule 100 mg PO BID RF: 0 Primary Care Provider: Jagjit Matias Referrals: Jagjit Matias DO [Primary Care Provider] - Activity Restrictions/Additional Instructions: Today your hemoglobin was 7.4. It was 7.5 when you left the hospital so this is stable. The bleeding scan did not identify any areas of bleeding in your abdomen. You are safe to go home and follow-up with Dr. López as scheduled on Monday. If you have new or worsening symptoms please come back to the ER. Disposition Disposition: Home, Self Care Discharge Date/Time: 05/13/21 17:04
[2021-05-13] MEDS: 0.9% Normal Saline 1,000 ML 999 ML IV (10:25)
[2021-05-13 10:29] LABS: Absolute Lymphocyte Count 1.07 X10^3/uL (0.83-4.51); Absolute Neutrophil Count 3.3 X10^3/uL (2.0-7.7); Basophil# 0.03 X10^3/uL; Basophil% 0.6 % (0-1); Eosinophil# 0.06 X10^3/uL; Eosinophils% 1.2 % (0-5); Hematocrit 22.8 % (37-47); Hemoglobin 7.1 g/dL (12.0-15.0); Lymphocyte # 1.07 X10^3/ul (0.83-4.51); Lymphocyte % 20.7 % (19-41); Mean Corp Hgb Conc 31.1 g/dL (32-36); Mean Corpuscular Hgb 28.6 pg (27.0-32.0); Mean Corpuscular Volume 91.9 fL (81-99); Mean Platelet Vol. 9.6 fl (6.2-12.0); Monocyte# 0.66 X10^3/uL; Monocyte% 12.8 % (0-10); NRBC Flagged by Analyzer 0 % (0-5); Neutrophil # 3.28 X10^3/uL (2.7-7.7); Neutrophil % 63.5 % (47-70); Platelet Count 250 K/mm3 (150-450); RBC Distribution Width CV 15.2 % (11.6-14.6); RBC Distribution Width SD 50.6 fl (35.1-43.9); Red Blood Count 2.48 M/mm3 (4.2-5.4); White Blood Count 5.2 K/mm3 (4.4-11.0)
[2021-05-13 10:41] VITALS: BP 125/73; BP 128/63; BP 130/61; PULSE 76; PULSE 78; PULSE 85
[2021-05-13 10:50] LABS: ALB/GLOB Ratio 0.9 RATIO (0.9-2.4); AST(SGOT) 18 U/L (15-37); Alanine Aminotransfer ALT/SGPT 23 U/L (13-56); Albumin, Serum 2.7 g/dL (3.2-5.0); Alkaline Phosphatase 82 U/L (45-117); Anion Gap 3 (5-15); BUN 23 mg/dL (7-18); BUN/Creat Ratio 28.1 RATIO (10-20); Calcium,Total 8.6 mg/dL (8.5-10.1); Chloride 114 mmol/L (98-107); Creatinine, Serum 0.82 mg/dL (0.55-1.02); EST Glomerular Filtration Rate 72 mL/min (>60); Est Glom Filt Rate - Afr Amer 87 mL/min (>60); Estimated Creatinine Clearance 42.67 ml/min; Glucose 115 mg/dL (74-106); Potassium 3.5 mmol/L (3.5-5.1); Protein, Total 5.7 g/dL (6.4-8.2); Sodium Level 144 mmol/L (136-145)
[2021-05-13 10:52] LABS: International Normalized Ratio 1.1; Prothrombin Time (Protime)PT. 13.3 SECONDS (11.7-14.9)
[2021-05-13 12:41] LABS: Absolute Neutrophil Count 3.7 X10^3/uL (2.0-7.7); Basophil# 0.02 X10^3/uL; Basophil% 0.3 % (0-1); Eosinophil# 0.06 X10^3/uL; Hematocrit 23.8 % (37-47); Hemoglobin 7.4 g/dL (12.0-15.0); Lymphocyte % 22.5 % (19-41); Mean Corp Hgb Conc 31.1 g/dL (32-36); Mean Corpuscular Hgb 28.7 pg (27.0-32.0); Mean Corpuscular Volume 92.2 fL (81-99); Mean Platelet Vol. 10.4 fl (6.2-12.0); Monocyte# 0.68 X10^3/uL; Monocyte% 11.8 % (0-10); NRBC Flagged by Analyzer 0 % (0-5); Neutrophil # 3.66 X10^3/uL (2.7-7.7); Neutrophil % 63.5 % (47-70); Platelet Count 187 K/mm3 (150-450); RBC Distribution Width CV 15.4 % (11.6-14.6); RBC Distribution Width SD 51.9 fl (35.1-43.9); Red Blood Count 2.58 M/mm3 (4.2-5.4); White Blood Count 5.8 K/mm3 (4.4-11.0)
--- NOTE | 2021-05-13 13:32 | NM_ITS ---
CLINICAL: 80-year-old female with history of gastrointestinal hemorrhage. LABELED BLOOD POOL GASTROINTESTINAL BLEEDING STUDY COMPARISON: None available FINDINGS: Following the intravenous administration of 24.5 mCi of 99m Tc Ultratag labeled RBCs, image acquisitions of the anterior-abdomen and pelvis for a total of 60 minutes reveal: 1. Review of both static and cine 1 minute acquisitions of the anterior abdomen and pelvis demonstrate no evidence of abnormal increased tracer uptake indicative of acute gastrointestinal hemorrhage. 2. Physiologic tracer uptake is defined in the hepatic, splenic, cardiac and major vascular blood pool. NM/GI Bleed Scan IMPRESSION: 1. NEGATIVE 99m Tc ULTRATAG LABELED BLOOD POOL GASTROINTESTINAL BLEEDING EXAMINATION. 2. There is no definitive scintigraphic evidence of acute gastrointestinal hemorrhage on the current evaluation. Electronically Signed: Juancarlos Smallwood DO at 16:23 EST ,
[2021-05-13 16:24] VITALS: BP 141/66; PULSE 77; RESP 16; O2SAT 100
== END 2021-05-13 17:04 | disposition home or self-care (01) ==
PROVIDERS: Emergency Provider Physician Assistant; PCP Student in an Organized Health Care Education/Training Program; Visit Provider Physician Assistant
DX: D64.9 Anemia, unspecified (principal); K21.9 Gastro-esophageal reflux disease without esophagitis; Z87.19 Personal history of other diseases of the digestive system
CPT/HCPCS: 78278; 80053; 85025; 85610; 96365; 96366; 99284; A9560; J7030; A4216

== ENCOUNTER → 2022-09-30 | Outpatient (CLI) | payer MEDICARE, SELFPAY ==
--- NOTE | 2022-09-30 07:46 | MRI_ITS ---
EXAM: MR Abdomen WO/W Contrast HISTORY: PANCREATIC LESION TECHNIQUE: MR Abdomen WO/W Contrast COMPARISON: None. LIMITATIONS: None. FINDINGS: Multiple cysts are identified within the head body and tail of the pancreas. Larger cysts measure 8 mm. No solid pancreatic mass identified. The pancreatic duct is borderline dilated within the head. No peripancreatic inflammatory change. Moderate hiatal hernia. Multiple gallstones. No pericholecystic inflammatory change. The common bile duct is within normal limits in caliber for age measuring 6 mm. No common duct stone identified. No focal liver lesions. The spleen is not enlarged. No adrenal nodules. Several renal cysts bilaterally. A 1.8 x 1.8 cm exophytic complex lesion arises from the mid portion of the right kidney. Signal characteristics of the renal lesion are inconsistent with a simple cyst. No hydronephrosis. MRI/MRI Abd WITH and W/O Contrast IMPRESSION: 1. Multiple cystic lesions throughout the pancreas. Larger lesions measure 8 mm. Follow-up MRI is recommended in 2 years to assess for interval growth. No solid pancreatic mass identified. 2. 1.8 cm complex lesion in the right kidney. Renal cell carcinoma is not excluded. Nonemergent renal mass protocol CT is recommended. 3. Gallstones. 4. Moderate hiatal hernia. Electronically Signed: Christophe Jules MD at 4:34 EDT ,
== END | disposition home or self-care (01) ==
PROVIDERS: PCP Student in an Organized Health Care Education/Training Program; Referring Provider Nurse Practitioner Primary Care; Visit Provider Nurse Practitioner Primary Care
DX: K86.9 Disease of pancreas, unspecified (principal); Z91.041 Radiographic dye allergy status
CPT/HCPCS: 74183; A9575; A4216

== ENCOUNTER → 2024-10-21 | Outpatient (CLI) | payer MEDICARE, SELFPAY ==
--- NOTE | 2024-10-21 07:16 | US_ITS ---
PROCEDURE: ABD LIMITED W/ ELASTOGRAPHY REASON FOR EXAM: FATTY LIVER COMPARISON: None. TECHNIQUE: Right upper quadrant abdominal ultrasound. [facility] ElastQ Imaging shear wave elastography for non-invasive assessment of liver tissue stiffness. [facility] EPIQ Elite. FINDINGS: LIVER: Size: Unremarkable Length: 15 cm Echotexture: Normal Contour: Normal Lesions: None identified Elastography: EQI Med: 7.6 kPa EQI Med Jeffry: 1.58 m/s IQR/Med: 25.3 %* GALLBLADDER: Multiple echogenic gallstones are identified. COMMON BILE DUCT: Dilated measuring up to 7 mm . PANCREAS: Visualized portions are unremarkable. The distal body and tail are obscured by bowel gas. There is a 3.4 cm x 2.5 cm x 1.9 cm hypoechoic nodular density in the midportion of the right kidney. Correlation with CT scan recommended. US/ABD Limited w/ Elastography IMPRESSION: Mild hepatic fibrosis. Multiple gallstones. 3.4 cm 2.5 cm x 1.9 cm hypoechoic nodular density in the midportion of the righ t kidney. Correlation with CT scan recommended. Reference Values: SRU <1.37 m/s (5.7kPa): No to mild fibrosis 1.37 m/s - 2.2 m/s: Moderate to severe fibrosis >2.2 m/s (15kPa): Significant fibrosis / cirrhosis METAVIR Score F2 or higher: 1.34 m/s (5.7kPa) F3 or higher: 1.55 m/s (7.3kPa) F4: 1.80 m/s (10kPa) * If the IQR/Med is >30%, the variance in the measurements is a large and the a ccuracy of the measurement may be in question. Reading Location: [place] [id number]
--- OUTSIDE RECORDS SUMMARY | 2024-10-21 07:18 | XMS RPT_ITS | CCD ---
Author Organization [facility] Care Team Providers Care Inserter Promotional Item Name Role Phone MANN, AUNDREA L Unavailable Unavailable MANN, AUNDREA L Unavailable Unavailable MANN, AUNDREA L Unavailable Unavailable MANN, AUNDREA L Unavailable Unavailable Jagjit Matias Primary Care Provider TAYLOR WILLIAMSON Admitting Unavailable TAYLOR WILLIAMSON Attending Unavailable CHELY NOONAN Consulting Unavailable Jagjit Matias DO Primary Care Provider Jagjit Matias DO Primary Care Provider Jagjit Matias DO Primary Care Provider Jagjit Matias DO Primary Care Provider BONI, FRANK Attending Unavailable MATIAS, JAGJIT Primary Care Unavailable FOSTER, FRANK Referring Unavailable MATIAS, JAGJIT Primary Care Unavailable FOSTER, FRANK Attending Unavailable FOSTER, FRANK Referring Unavailable MATIAS, JAGJIT Primary Care Unavailable FOSTER, FRANK Attending Unavailable SELF, SELF Referring Unavailable SELF, SELF Referring Unavailable MATIAS, JAGJIT Primary Care Unavailable FOSTER, FRANK Attending Unavailable FOSTER, FRANK Referring Unavailable MATIAS, JAGJIT Primary Care Unavailable FOSTER, FRANK Attending Unavailable FOSTER, FRANK Attending Unavailable MATIAS, JAGJIT Primary Care Unavailable FOSTER, FRANK Referring Unavailable FOSTER, FRANK Attending Unavailable MATIAS, JAGJIT Primary Care Unavailable FOSTER, FRANK Referring Unavailable SKYLAR DE LOS SANTOS Referring Unavailab le JAGJIT MATIAS Primary Care Unavailable SKYLAR DE LOS SANTOS Referring Unavailab le MATIASJAGJIT L Primary Care Unavailable Matias Jagjit NEGRO Primary Care Provider Johnathan TAXATION INSPECTOR.WOMEN'S BASKETBALL COACH, Kelsey Ramirez Unavailable Salo TAXATION INSPECTOR.WOMEN'S BASKETBALL COACHRick Unavailable Ela TAXATION INSPECTOR.WOMEN'S BASKETBALL COACH, Jana Aragon Unavailable MATIAS, JAGJIT L Primary Care Unavailable GOLIAS, ROCKY Attending Unavailable MATIAS, JAGJIT L Referring Unavailable WARMINSKI, EDITH Referring Unavailable MATIAS, JAGJIT L Primary Care Unavailable WARMINSKI, EDITH Referring Unavailable MATIAS, JAGJIT L Primary Care Unavailable MATIAS, JAGJIT L Primary Care Unavailable GOLIAS, ROCKY Attending Unavailable MATIAS, JAGJIT L Referring Unavailable MATIAS, JAGJIT L Primary Care Unavailable MATIAS, JAGJIT L Attending Unavailable SKYLAR SMITH Referring Unavailable MATIAS, JAGJIT L Primary Care Unavailable ZORA HERNANDES Attending Unavailable MATIAS, JAGJIT L Primary Care Unavailable MATIAS, JAGJIT L Referring Unavailable MATIAS, JAGJIT L Primary Care Unavailable GOLIAS, ROCKY Attending Unavailable MATIAS, JAGJIT L Referring Unavailable GOLIAS, ROCKY Attending Unavailable MATIAS, JAGJIT L Referring Unavailable MATIAS, JAGJIT L Primary Care Unavailable MATIAS, JAGJIT L Primary Care Unavailable GOLIAS, ROCKY Attending Unavailable MATIAS, JAGJIT L Referring Unavailable MATIAS, JAGJIT L Primary Care Unavailable GOLIAS, ROCKY Attending Unavailable MATIAS, JAGJIT L Referring Unavailable MATIAS, JAGJIT L Primary Care Unavailable MATIAS, JAGJIT L Attending Unavailable KELSEY MANN Referring Unavailabl e MATIAS, JAGJIT L Primary Care Unavailable MATIAS, JAGJIT L Primary Care Unavailable RICK LEONG Attending Unavailable MATIAS, JAGJIT L Primary Care Unavailable SALORICK RENDON Referring Unavailable Matias, Jagjit Referring Unavailable Matias, Jagjit Attending Unavailable Matias, Jagjit Primary Care Unavailable Allergies Allergy Classification Reported Allergen(s) Allergy Type Date of Onset Reaction(s) Facility (20 sources) Cephalexin; Translations: [CEPHALEXIN] Drug Allergy 6 [facility] (20 sources) Diclofenac; Translations: [DICLOFENAC] Drug Allergy 6 [facility] (20 sources) Iodine; Translations: [IODINE] Drug Allergy 6 [facility] (9 sources) Latex Propensity to adverse reactions to drug [facility] (20 sources) levoFLOXacin; Translations: [LEVOFLOXACIN] Drug Allergy 6 [facility] (14 sources) Penicillins; Translations: [PENICILLINS] Propensity to adverse reactions to drug 6 Rash [facility] (20 sources) natural latex rubber; Translations: [LATEX, NATURAL RUBBER] Propensity to adverse reactions to drug (disorder) 5 Rash, Intolerance, Itching [facility] Other [place] [facility] (6 sources) Penicillins Drug Intolerance 6 [facility] Work Phone: (20 sources) Penicillins Drug Intolerance 6 [facility] Work Phone: (20 sources) Chlorhexidine; Translations: [CHLORHEXIDINE] Drug Allergy 3 [facility] Work Phone: (11 sources) Penicillins Drug Intolerance 6 [facility] (1 source) Cephalexin Drug Allergy 2 [facility] (1 source) Diclofenac Drug Allergy 2 [facility] (1 source) Iodine Drug Allergy 2 [facility] (1 source) Latex Drug allergy (disorder) 2 [facility] (1 source) Penicillins Drug allergy (disorder) 2 [facility] Medications Current Medications Medication Drug Class(es) Dates Sig (Normalized) Sig (Original) acetaminophen 325 mg oral tablet (20 sources) Start: 07-07-2022 take 2 tablets by mouth every six hours as needed acetaminophen (TYLENOL) 325 mg tablet Take 2 tablets by mouth every 6 hours as needed for pain. 07/07/2022 Active Comment on above: Take 2 tablets by [facility] every 6 hours as needed for pain. calcium carbonate 1500 mg oral tablet (20 sources) Start: 02-05-2020 calcium carbonate (CALTRATE) 600 mg calcium (1,500 mg) tab Take by mouth. 02/05/2020 Active Comment on above: Take by mouth. Calcium Carbonate-Vit D-Min (CALTRATE PLUS PO) (9 sources) Calcium Carbonate-Vit D-Min (CALTRATE PLUS PO) Cholecalciferol (9 sources) Vitamin D Cholecalciferol (VITAMIN D PO) cholecalciferol, vitamin D3, (VITAMIN D3 ORAL) (20 sources) cholecalciferol, vitamin D3, (VITAMIN D3 ORAL) Take by mouth once daily. Active cholecalciferol, vitamin D3, (VITAMIN D3 ORAL) Take by mouth once daily. 0 Active Comment on above: Take by mouth once d aily. 1 ml dexamethasone phosphate 4 mg/ml injection (9 sources) Corticosteroid Start: 04-07-19 18 dexamethasone 4 MG/ML Solution injection Indications: Trochanteric bursitis of left hip , Iliotibial band syndrome of left side 1 mL by Other route As directed for 18 doses. (1 cc 3 x a week at physical therapy via iontophoresis) for up to 18 doses. 30 mL 0 04/07/2017 Active docusate sodium 100 mg oral capsule (20 sources) Start: 07-08-19 End: 08-07-19 take 1 capsule by mouth twice daily docusate sodium (COLACE) 100 mg capsule Take 1 capsule by mouth twice daily. 60 capsule 0 07/07/2022 08/06/2022 Active Start: 05-11-2021 End: 06-29-2022 take 1 capsule by mouth twice daily for constipation docusate sodium (COLACE) 100 mg capsule Take 1 capsule by mouth twice daily. For constipation 60 capsule 2 05/11/2021 06/29/2022 Discontinued (Course of therapy completed) Comment on above: Take 1 capsule by mo ut twice daily. For constipation Take 1 capsule by mo ut twice daily. enteric contrast (will be provided with radiology test) (2 sources) Start: 09-23-2022 End: 09-24-2022 enteric contrast (will be provided with radiology test) Indications: Leukocytosis, unspecified type For CT ABD/PEL W IVCON Routine order Administer, As Directed One Time Only, via Oral, Rectal, both Oral and Rectal, Enteric Tube, Stoma or Indwelling Catheter, Enteric Contrast as designated per enteric contrast guidelines 1 Each 0 09/23/2022 09/24/2022 Active Start: 06-10-2022 End: 06-10-2022 enteric contrast (will be pr ovided with radiology test) Indications: Renal mass, right , Generalized abdominal pain , Calculus of gallbladder without cholecystitis without obstruction , Nausea For CT ABD/PEL W IVCON Routine order Administer, As Directed One Time Only, via Oral, Rectal, both Oral and Rectal, Enteric Tube, Stoma or Indwelling Catheter, Enteric Contrast as designated per enteric contrast guidelines 1 Each 0 06/10/2022 06/10/2022 Discontinued Comment on above: For CT ABD/PEL W IVC ON Routine order Administer, As Directed One Time Only, via Oral, Rectal, both Oral and Rectal, Enteric Tube, Stoma or Indwelling Catheter, Enteric Contrast as designated per enteric contrast guidelines ferrous sulfate 325 mg oral tablet (20 sources) Start: 04-22-2020 take 1 tablet by mouth twice daily at mealtime ferrous sulfate (IRON, FERROUS SULFATE,) 325 mg (65 mg iron) tablet Indications: Other iron deficiency anemia Take 1 tablet by mouth twice daily with meals. 60 tablet 2 04/22/2020 Active take 1 tablet by charleen th three times daily at mealtime ferrous sulfate 325 (65 Fe) MG tablet Take 1 tablet by mouth 3 times daily with meals. 0 Active Comment on above: Take 1 tablet by charleen th twice daily with meals. iv contrast (will be provided with radiology test) (13 sources) Start: 10-14-2024 End: 10-15-2024 iv contrast (will be provided with radiology test) Indications: Other specified disorders of kidney and ureter MRI Kidney Inject, intravenously, once for 1 dose. No IV access, insert saline lock prior to the beginning of sedation, infusion, injection of imaging exam. Discontinue saline lock post exam. If Pt. has a central line or IVAD, may access for administration according to line specific nursing protocol. Once exam is complete flush line and de-access according to line specific nursing protocol in the MR contrast administration guidelines link. 1 each 10/14/2024 10/15/2024 Active Start: 07-27-2023 End: 07-28-2023 iv contrast (will be provide d with radiology test) Indications: History of renal cell cancer MRI ABDOMEN Inject, intravenously, once for 1 dose. No IV access, insert saline lock prior to the beginning of sedation, infusion, injection of imaging exam. Discontinue saline lock post exam. If Pt. has a central line or IVAD, may access for administration according to line specific nursing protocol. Once exam is complete flush line and de-access according to line specific nursing protocol in the MR contrast administration guidelines link. 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 Discontinue saline lock post exam. If Pt. has a central line or IVAD, may access for administration according to line specific nursing protocol. Once exam is complete flush line and de-access according to line specific nursing protocol in the CT contrast administration guidelines link. 1 Each 0 05/05/2023 05/06/2023 Start: 10-21-2022 End: 10-22-2022 iv contrast (will be provide d with radiology test) Indications: Leukocytosis, unspecified type , Acquired cyst of kidney , Other specified disorders of kidney and ureter , Renal mass, right CT kidney wow Inject, intravenously, once for 1 dose.No IV access, insert saline lock prior to the beginning of sedation, infusion, injection of imaging exam. Discontinue saline lock post exam. If Pt. has a central line or IVAD, may access for administration according to line specific nursing protocol. Once exam is complete flush line and de-access according to line specific nursing protocol in the CT contrast administration guidelines link. 1 Each 0 10/21/2022 10/22/2022 Start: 10-10-2022 End: 10-11-2022 iv contrast (will be provide d with radiology test) CT kidney wow Inject, intravenously, once for 1 dose.No IV access, insert saline lock prior to the beginning of sedation, infusion, injection of imaging exam. Discontinue saline lock post exam. If Pt. has a central line or IVAD, may access for administration according to line specific nursing protocol. Once exam is complete flush line and de-access according to line specific nursing protocol in the CT contrast administration guidelines link. 1 Each 0 10/10/2022 10/11/2022 Active Start: 09-26-2022 End: 09-27-2022 iv contrast (will be provide d with radiology test) Indications: Contrast media allergy , Pancreatic lesion MRI PANC/SUSANA Inject, intravenously, once for 1 dose. No IV access, insert saline lock prior to the beginning of sedation, infusion, injection of imaging exam. Discontinue saline lock post exam. If Pt. has a central line or IVAD, may access for administration according to line specific nursing protocol. Once exam is complete flush line and de-access according to line specific nursing protocol in the MR contrast administration guidelines link. 1 Each 0 09/26/2022 09/27/2022 Active Start: 09-23-2022 End: 09-24-2022 iv contrast (will be provide d with radiology test) Indications: Leukocytosis, unspecified type CT ABD/PEL -Inject, intravenously, once for 1 dose.No IV access, insert saline lock prior to the beginning of sedation, infusion, injection of imaging exam. Discontinue saline lock post exam. If Pt. has a central line or IVAD, may access for administration according to line specific nursing protocol. Once exam is complete flush line and de-access according to line specific nursing protocol in the CT contrast administration guidelines link. 1 Each 0 09/23/2022 09/24/2022 Active Start: 06-10-2022 End: 06-10-2022 iv contrast (will be provide d with radiology test) Indications: Renal mass, right , Generalized abdominal pain , Calculus of gallbladder without cholecystitis without obstruction , Nausea CT ABD/PEL -Inject, intravenously, once for 1 dose.No IV access, insert saline lock prior to the beginning of sedation, infusion, injection of imaging exam. Discontinue saline lock post exam. If Pt. has a central line or IVAD, may access for administration according to line specific nursing protocol. Once exam is complete flush line and de-access according to line specific nursing protocol in the CT contrast administration guidelines link. 1 Each 0 06/10/2022 06/10/2022 Discontinued Start: 06-02-2022 End: 06-03-2022 iv contrast (will be provide d with radiology test) CT kidney wow Inject, intravenously, once for 1 dose.No IV access, insert saline lock prior to the beginning of sedation, infusion, injection of imaging exam. Discontinue saline lock post exam. If Pt. has a central line or IVAD, may access for administration according to line specific nursing protocol. Once exam is complete flush line and de-access according to line specific nursing protocol in the CT contrast administration guidelines link. 1 Each 0 06/02/2022 06/03/2022 Start: 05-13-2022 End: 05-14-2022 iv contrast (will be provide d with radiology test) Indications: Other specified disorders of kidney and ureter , Renal mass , Right sided abdominal pain CT kidney wow Inject, intravenously, once for 1 dose.No IV access, insert saline lock prior to the beginning of sedation, infusion, injection of imaging exam. Discontinue saline lock post exam. If Pt. has a central line or IVAD, may access for administration according to line specific nursing protocol. Once exam is complete flush line and de-access according to line specific nursing protocol in the CT contrast administration guidelines link. 1 Each 0 05/13/2022 05/14/2022 Active Comment on above: CT kidney wow Inject , intravenously, once for 1 dose.No IV access, insert saline lock prior to the beginning of sedation, infusion, injection of imaging exam. Discontinue saline lock post exam. If Pt. has a central line or IVAD, may access for administration according to line specific nursing protocol. Once exam is complete flush line and de-access according to line specific nursing protocol in the CT contrast administration guidelines link. CT ABD/PEL -Inject, intravenously, once for 1 dose.No IV access, insert saline lock prior to the beginning of sedation, infusion, injection of imaging exam. Discontinue saline lock post exam. If Pt. has a central line or IVAD, may access for administration according to line specific nursing protocol. Once exam is complete flush line and de-access according to line specific nursing protocol in the CT contrast administration guidelines link. MRI PANC/SUSANA Inject, intravenously, once for 1 dose. No IV access, insert saline lock prior to the beginning of sedation, infusion, injection of imaging exam. Discontinue saline lock post exam. If Pt. has a central line or IVAD, may access for administration according to line specific nursing protocol. Once exam is complete flush line and de-access according to line specific nursing protocol in the MR contrast administration guidelines link. Magnesium Hydroxide (6 sources) Magnesium Hydrox lexa (MAGNESIA PO) Take by mouth. 0 Active meloxicam 15 mg oral tablet (9 sources) Nonsteroidal Anti-inflammatory Drug Start: 01-17-20 18 take 1 tablet by mouth once daily at mealtime meloxicam 15 MG Tab tablet Indications: Acute pain of both shoulders Take 1 tablet by mouth daily. With food 30 tablet 2 01/16/2018 Active Multiple Vitamin (MULTIVITAMIN) Tab (9 sources) Multiple Vitamin (MULTIVITAMIN) Tab pantoprazole 40 mg delayed release oral tablet (20 sources) Proton Pump Inhibitor Start: 03-29-19 End: 10-08-19 take 1 tablet by mouth once daily pantoprazole DR (PROTONIX) 40 mg tablet Take 1 tablet by mouth once daily. 90 tablet 1 10/07/2024 Active Start: 11-25-2020 End: 09-27-2022 take 1 tablet by mouth once daily pantoprazole DR (PROTONIX) 40 mg tablet Take 1 tablet by mouth once daily. 90 tablet 1 09/28/2022 Active Comment on above: Take 1 tablet by charleen th once daily. perflutren lipid microspheres 1.3 mL in NaCl (PF) 0.9% 10 mL injection (DEFINITY) (20 sources) Start: 12-15-2021 End: 03-16-2023 perflutren lipid microspheres 1.3 mL in NaCl (PF) 0.9% 10 mL injection (DEFINITY) Probiotic Product (PROBIOTIC DAILY PO) (1 source) Probiotic Produc t (PROBIOTIC DAILY PO) Take by mouth daily. 0 Active 125 ml sodium chloride 9 mg/ml prefilled syringe (20 sources) Start: 12-15-2021 End: 03-16-2023 sodium chloride 0.9 % (flush) 10 mL (BD POSIFLUSH) Zinc Sulfate (6 sources) Zinc Sulfate (ZI NC 15 PO) Take by mouth. 0 Active Completed/Discontinued Medications Medication Drug Class(es) Dates Sig (Normalized) Sig (Original) aspirin 81 mg delayed release oral tablet (20 sources) Platelet Aggregation Inhibitor, Nonsteroidal Anti-inflammatory Drug Start: 06-19-2018 End: 06-29-2022 take 1 tablet by mouth twice daily aspirin, enteric coated (ECOTRIN LOW STRENGTH) 81 mg EC tablet Take 1 tablet by mouth twice daily for 14 days. 28 tablet 06/19/2018 06/29/2022 Discontinued (Course of therapy completed) End: 06-29-2022 take 1 tablet by mouth once daily aspirin, enteric coated (ASPIRIN, ENTERIC COATED) 81 mg EC tablet Take 81 mg by mouth once daily. 06/29/2022 Discontinued (Discontinued by Patient) End: 06-09-2022 ASPIRIN 81 PO ASPIRIN 81 PO Comment on above: Take 81 mg by mouth once daily. Take 1 tablet by charleen th twice daily for 14 days. CALCIUM CARB/VIT D2/MINERALS (CALTRATE PLUS ORAL) (20 sources) End: 10-23-2022 CALCIUM CARB/VIT D2/MINERALS (CALTRATE PLUS ORAL) Take by mouth. 10/23/2022 Discontinued End: 10-23-2022 CALCIUM CARB/VIT D2/MINERALS (CALTRATE PLUS ORAL) Take by mouth. 0 10/23/2022 Discontinued CALCIUM CARB/VIT D2/MINERALS (CALTRATE PLUS ORAL) Take by mouth. 0 Active Comment on above: Take by mouth. diphenhydrAMINE hydrochloride 50 mg oral tablet (4 sources) Histamine-1 Receptor Antagonist Start: 11-03-19 End: 11-03-19 take 1 tablet by mouth once, then take 1 tablet by mouth every hour diphenhydrAMINE HCL 50 mg tablet Indications: Contrast media allergy , Pancreatic lesion Take 1 tablet by mouth one time only for 1 dose. [address] dye infusion. 1 tablet 0 11/02/2022 11/02/2022 Start: 09-26-2022 End: 09-26-2022 take 1 tablet by mouth once, then take 1 tablet by mouth every hour diphenhydrAMINE HCL 50 mg tablet Indications: Contrast media allergy , Pancreatic lesion Take 1 tablet by mouth one time only for 1 dose. [address] dye infusion. 1 tablet 0 09/26/2022 09/26/2022 Start: 09-23-2022 End: 09-23-2022 take 1 tablet by mouth once, then take 1 tablet by mouth every hour diphenhydrAMINE HCL 50 mg tablet Indications: Contrast media allergy Take 1 tablet by mouth one time only for 1 dose. [address] dye infusion. 1 tablet 0 09/23/2022 09/23/2022 Active Start: 05-16-2022 End: 05-16-2022 take 1 tablet by mouth once, then take 1 tablet by mouth every hour diphenhydrAMINE HCL 50 mg tablet Take 1 tablet by mouth one time only for 1 dose. [address] dye infusion. 1 tablet 0 05/16/2022 05/16/2022 Active Comment on above: Take 1 tablet by [facility] one time only for 1 dose. [address] dye infusion. methocarbamol 750 mg oral tablet (3 sources) Muscle Relaxant Start: 3 End: 3 take 1 tablet by mouth every eight hours as needed methocarbamol (ROBAXIN) 750 mg tablet Take 1 tablet by mouth three times daily as needed (For muscle pain/spasms) for up to 21 doses. 21 tablet 0 07/07/2022 09/22/2022 Discontinued Comment on above: Take 1 tablet by charleen th three times daily as needed (For muscle pain/spasms) for up to 21 doses. nystatin [id number] unt/ml topical cream (13 sources) Polyene Antifungal Start: 3 End: nystatin (MYCOSTATIN) cream Indications: Dermatitis contact Apply to affected area twice daily. On rash on abdomen 30 g 1 07/11/2022 10/23/2022 Discontinued Comment on above: Apply to affected ar ea twice daily. On rash on abdomen oxyCODONE hydrochloride 5 mg oral tablet (3 sources) Opioid Agonist Start: 3 End: 3 take 1 tablet by mouth every eight hours as needed for pain oxyCODONE IR (ROXICODONE) 5 mg immediate release tablet Indications: Renal mass Take 1 tablet by mouth every 8 hours as needed for pain. 10 tablet 0 07/07/2022 09/22/2022 Discontinued Comment on above: Take 1 tablet by charleen every 8 hours as needed for pain. predniSONE 50 mg oral tablet (20 sources) Start: 3 End: predniSONE (DELTASONE) 50 mg Indications: Contrast media allergy , Pancreatic lesion (HCC) Take 1 tablet by mouth at 13 hours, 7 hours, and [address] dye infusion. 3 tablet 05/30/2023 10/07/2024 Discontinued Start: 09-23-2022 End: 10-23-2022 predniSONE (DELTASONE) 50 mg Indications: Contrast media allergy , Pancreatic lesion Take 1 tablet by mouth at 13 hours, 7 hours, and [address] dye infusion. 3 tablet 0 09/26/2022 10/23/2022 Discontinued Start: 05-16-2022 End: 06-29-2022 predniSONE (DELTASONE) 50 mg Take 1 tablet by mouth at 13 hours, 7 hours, and [address] dye infusion. 3 tablet 0 05/16/2022 06/29/2022 Discontinued (Course of therapy completed) Comment on above: Take 1 tablet by charleen th at 13 hours, 7 hours, and [address] dye infusion. Tc-99m medronate (MDP) 20-30 millicurie (1 source) Start: 06-23-2022 End: 06-23-2022 Tc-99m medronate (MDP) 20-30 millicurie THERAPEUTIC MULTIVITAMIN TAB (20 sources) Start: 11-15-2005 End: 06-29-2022 THERAPEUTIC MULTIVITAMIN TAB Take one(1) tablet daily. 0 11/15/2005 06/29/2022 Discontinued (Discontinued by Patient) Start: 11-15-2005 THERAPEUTIC MU LTIVITAMIN TAB Take one(1) tablet daily. 0 11/15/2005 Active Comment on above: Take one(1) tablet d aily. triamcinolone acetonide 1 mg/ml topical cream (13 sources) Corticosteroid Start: 07-11-2022 End: 10-23-2022 triamcinolone acetonide (KENALOG) 0.1 % cream Indications: Dermatitis contact Apply 1 application to affected area twice daily. Apply sparingly to area for rash/itching on abdominal wall 30 g 1 07/11/2022 10/23/2022 Discontinued Comment on above: Apply 1 application to affected area twice daily. Apply sparingly to area for rash/itching on abdominal wall Problems Active Problems Problem Classification Problem Date Documented Da te Episodic/Chronic Abdominal pain (7 sources) Right sided abdominal pain; Translations: [Unspecified abdominal pain] Episodic Acute and unspecified renal failure (1 source) Acute injury of kidney; Translations: [Acute kidney failure, unspecified] Episodic Allergic reactions (6 sources) Contact dermatitis; Translations: [Unspecified contact dermatitis, unspecified cause] Episodic Biliary tract disease (4 sources) Cholelithiasis without obstruction; Translations: [Calculus of gallbladder without cholecystitis without obstruction] Episodic Cancer of kidney and renal pelvis (20 sources) Renal cell carcinoma; Translations: [Malignant neoplasm of unspecified kidney, except renal pelvis] Onset: 3 Chronic Cancer of kidney and renal pelvis (5 sources) History of malignant neoplasm of retroperitoneum; Translations: [Personal history of other malignant neoplasm of kidney] Onset: 5 07-27-2023 Episodic Complication of device; implant or graft (6 sources) Joint pain; Translations: [Pain due to internal orthopedic prosthetic devices, implants and grafts, sequela] Onset: 3 Episodic Deficiency and other anemia (10 sources) Iron deficiency anemia; Translations: [Other iron deficiency anemias] Episodic Diseases of white blood cells (7 sources) Leukocytosis; Translations: [Elevated white blood cell count, unspecified] Onset: 3 09-23-2022 Chronic Disorders of lipid metabolism (20 sources) Hyperlipidemia; Translations: [Hyperlipidemia, unspecified] Onset: 4 11-15-2016 Chronic E Codes: Adverse effects of medical drugs (1 source) Allergic reaction to substance; Translations: [Adverse effect of other drugs, medicaments and biological substances, sequela] 09-23-2022 Episodic Esophageal disorders (20 sources) Gastroesophageal reflux disease without esophagitis; Translations: [Gastro-esophageal reflux disease without esophagitis] Onset: 3 06-29-2022 Chronic Gastrointestinal hemorrhage (4 sources) Melena due to gastrointestinal hemorrhage; Translations: [Melena] Episodic Heart valve disorders (20 sources) Non-rheumatic mitral regurgitation ; Translations: [Nonrheumatic mitral (valve) insufficiency] Onset: 2 Chronic Nausea and vomiting (2 sources) Nausea; Translations: [Nausea] Episodic Nutritional deficiencies (20 sources) Vitamin D deficiency; Translations: [Vitamin D deficiency, unspecified] Onset: 2 Chronic Osteoarthritis (20 sources) Primary osteoarthritis, left shoulder; Translations: [Osteoarthritis of hip] Onset: 4 12-17-2013 Chronic Other connective tissue disease (1 source) History of total hip arthroplasty; Translations: [Hx of total hip arthroplasty, left] Chronic Other connective tissue disease (6 sources) History of operative procedure on shoulder; Translations: [Presence of unspecified artificial shoulder joint] Onset: 9 06-19-2018 Chronic Other connective tissue disease (20 sources) History of total replacement of left hip joint; Translations: [Presence of left artificial hip joint] Onset: 2 Chronic Other connective tissue disease (20 sources) History of left shoulder arthroplasty; Translations: [Presence of left artificial shoulder joint] Onset: 9 07-30-2018 Chronic Other connective tissue disease (1 source) Pain in both feet; Translations: [Pain in right foot] Episodic Other diseases of kidney and ureters (6 sources) Disorder of kidney and/or ureter; Translations: [Other specified disorders of kidney and ureter] Chronic Other diseases of kidney and ureters (20 sources) Renal mass; Translations: [Other specified disorders of kidney and ureter] Onset: 4 Chronic Other diseases of kidney and ureters (2 sources) Acquired renal cystic disease; Translations: [Cyst of kidney, acquired] 10-21-2022 Episodic Other diseases of kidney and ureters (1 source) Disorder of kidney and/or ureter 10-14-2024 Episodic Other hereditary and degenerative nervous system conditions (20 sources) Essential tremor; Translations: [Essential tremor] 11-15-2016 Chronic Other liver diseases (3 sources) Steatosis of liver; Translations: [Fatty (change of) liver, not elsewhere classified] 10-07-2024 Chronic Other liver diseases (2 sources) Fatty (change of) liver, not elsewhere classified; Translations: [Fatty liver] Onset: 5 Chronic Other nervous system disorders (1 source) Antalgic gait; Translations: [Other abnormalities of gait and mobility] Episodic Other non-traumatic joint disorders (4 sources) Pain in right shoulder; Translations: [Pain in left shoulder] Onset: 8 Episodic Other non-traumatic joint disorders (2 sources) Pain in left hip; Translations: [Pain in left hip] Onset: 3 Episodic Other nutritional; endocrine; and metabolic disorders (20 sources) Body mass index 25-29 - overweight; Translations: [Overweight] 11-15-2016 Episodic Pancreatic disorders (not diabetes) (4 sources) Disorder of pancreas; Translations: [Disease of pancreas, unspecified] 09-26-2022 Episodic Residual codes; unclassified (1 source) History of partial nephrectomy; Translations: [Acquired absence of kidney] 07-27-2023 Episodic Past or Other Problems Problem Classification Problem Date Documented Da te Episodic/Chronic Conditions associated with dizziness or vertigo (2 sources) Postural dizziness; Translations: [Dizziness and giddiness] Onset: 10-26-2023 10-26-2023 Episodic Deficiency and other anemia (20 sources) Anemia; Translations: [Anemia, unspecified] Onset: 05-11-2021 05-11-2021 Episodic Deficiency and other anemia (1 source) Other iron deficiency anemias; Translations: [Other iron deficiency anemia] Onset: 05-11-2021 Episodic Diabetes mellitus without complication (20 sources) Hyperglycemia; Translations: [Hyperglycemia, unspecified] Onset: 05-18-2023 Episodic Fluid and electrolyte disorders (2 sources) Dehydration; Translations: [Dehydration] Onset: 10-26-2023 10-26-2023 Episodic Malaise and fatigue (20 sources) Fatigue; Translations: [Other fatigue] Onset: 05-11-2021 05-11-2021 Episodic Nutritional deficiencies (20 sources) Cobalamin deficiency; Translations: [Deficiency of other specified B group vitamins] Onset: 12-15-2021 Episodic Other connective tissue disease (20 sources) Plantar fascial fibromatosis; Translations: [Plantar fascial fibromatosis] Onset: 11-03-2014 Resolved: 12-09-2014 12-09-2014 Episodic Other gastrointestinal disorders (20 sources) Acute constipation; Translations: [Constipation, unspecified] Onset: 05-11-2021 05-11-2021 Episodic Other nervous system disorders (20 sources) Tremor; Translations: [Tremor, unspecified] Onset: 01-26-2015 01-26-2015 Episodic Other nervous system disorders (20 sources) Limping; Translations: [Other abnormalities of gait and mobility] Onset: 12-15-2021 Episodic Other nervous system disorders (20 sources) Abnormal gait; Translations: [Unspecified abnormalities of gait and mobility] Onset: 08-21-2023 08-21-2023 Episodic Other nervous system disorders (2 sources) Unspecified abnormalities of gait and mobility; Translations: [Abnormality of gait] Onset: 07-10-2024 Episodic Other non-traumatic joint disorders (20 sources) Arthralgia of the ankle and/or foot; Translations: [Pain in unspecified ankle and joints of unspecified foot] Onset: 11-03-2014 11-03-2014 Episodic Other non-traumatic joint disorders (20 sources) Hip pain; Translations: [Pain in left hip] Onset: 08-13-2020 08-13-2020 Episodic Other screening for suspected conditions (not mental disorders or infectious disease) (8 sources) Patient encounter status; Translations: [Encounter for screening mammogram for malignant neoplasm of breast] Onset: 05-30-2024 Episodic Spondylosis; intervertebral disc disorders; other back problems (20 sources) Chronic low back pain; Translations: [Lumbago with sciatica, left side] Onset: 11-12-2013 Resolved: 04-28-2016 08-13-2020 Episodic Sprains and strains (20 sources) Tendon rupture - hip; Translations: [Strain of muscle, fascia and tendon of unspecified hip, initial encounter] Onset: 08-21-2023 08-21-2023 Episodic Varicose veins of lower extremity (20 sources) Varicose veins of lower extremity; Translations: [Varicose veins of bilateral lower extremities with other complications] Onset: 01-23-2008 01-23-2008 Episodic Results Test Name Value Interpretation Reference Range Facility [facility] 10-09-2024 [facility] LETHA CASTRO ([id number]) 1940 F Date Time Provider Department 10/09/[address] [facility] During your visit today, we recorded the following information about you: Danya Jones RN 10/09/2024 9:34 AM Signed Patient calls to report that [facility] hasn't received the orders for ultrasound abdomen and elastography liver. Faxed to [phone] per request. Danya Jones RN Allergies As of Date: 10/09/2024 Noted Allergy Reaction LATEX, NATURAL RUBBER 05/02/2014 2 - Rash 5 - Intolerance 9 - Itching CEPHALEXIN 11/11/2005 CHLORHEXIDINE 07/21/2022 2 - Rash DICLOFENAC 11/11/2005 IODINE 11/11/2005 2 - Rash Comments: During heart cath contrast dye LEVAQUIN (LEVOFLOXACIN) 11/11/2005 2 - Rash PENICILLINS 11/11/2005 2 - Rash Date Reviewed: 10/07/2024 Reviewed by: Elizabeth Watts LPN - Fully Assessed Reason for Visit: Orders [681] Prescriptions as of 10/09/2024 - pantoprazole DR (PROTONIX) 40 mg tablet Take 1 tablet by mouth once daily. - acetaminophen (TYLENOL) 325 mg tablet Take 2 tablets by mouth every 6 hours as needed for pain. - calcium carbonate (CALTRATE) 600 mg calcium (1,500 mg) tab Take by mouth. - ferrous sulfate (IRON, FERROUS SULFATE,) 325 mg (65 mg iron) tablet Take 1 tablet by mouth twice daily with meals. - cholecalciferol, vitamin D3, (VITAMIN D3 ORAL) Take by mouth once daily. Problem List As Of Date 10/09/2024 Noted Resolved LEG VARICOSITY W OTHER COMPLICATION [I83.893] 01/23/2008 Backache, unspecified [M54.9] 11/12/2013 04/28/2016 Sciatica [M54.30] 11/12/2013 04/28/2016 Hip osteoarthritis [M16.9] 12/17/2013 Plantar fascial fibromatosis [M72.2] 11/03/2014 12/09/2014 Pain in joint, ankle and foot [M25.579] 11/03/2014 Arthritis, midfoot [M19.079] 12/09/2014 Tremors of nervous system [R25.1] 01/26/2015 Overweight (BMI 25.0-29.9) [E66.3] Essential tremor [G25.0] Hyperlipidemia [E78.5] Glenohumeral arthritis, left [M19.012] 03/19/2018 Status post total shoulder arthroplasty [Z96.61*06/19/2018 Status post replacement of left shoulder joint *07/30/2018 Left hip pain [M25.552] 08/13/2020 Chronic left-sided low back pain with left-side*08/13/2020 Absolute anemia [D64.9] 05/11/2021 Acute constipation [K59.00] 05/11/2021 Limping [R26.89] 12/15/2021 History of hip replacement, total, left [Z96.64*12/15/2021 Nonrheumatic mitral valve regurgitation [I34.0] 12/15/2021 Vitamin D deficiency [E55.9] 12/15/2021 Vitamin B 12 deficiency [E53.8] 12/15/2021 Gastroesophageal reflux disease without esophag*06/29/2022 Renal cell carcinoma (HCC) [C64.9] 10/23/2022 Hyperglycemia [R73.9] 05/18/2023 Dyslipidemia [E78.5] 05/18/2023 Renal mass, right [N28.89] 05/18/2023 Abnormality of gait [R26.9] 08/21/2023 Tear of gluteus medius tendon [S76.019A] 08/21/2023 Impaired fasting glucose [R73.01] 03/29/2024 Sprain, gluteus medius, unspecified laterality,*07/10/2024 Encounter Status:Closed by DANYA JONES on 10/09/24 [facility] CNOVon 10-07-2024 CNOV Office Visit (FAMPWS ) GLORIALETHA ([id number]) 1940 F Date Time Provider Department 10/07/24 7:40 AM [facility] During your visit today, we recorded the following information about you: Temperature Pulse Respiration Blood pressure 97 degrees 60/minute 16/minute 150/82 Weight Height 67.6 kg 1.58 m Jagjit Matias DO 10/07/2024 11:43 AM Luis Antonio Ashlye Gloria is a 84 year old female here for a Medicare wellness visit. Medicare Health Risk Assessment General Health Excellent Exercise: Minutes/Day 40 min Exercise: Days/Week 1 day Alcohol: Daily Use Never Alcohol: Drinks/Day Patient does not drink Alcohol: 6 or more drinks Never Feel off balance No Concerns: Teeth/Dentures No Concerns: Sexual function No Troubled by feelings None of the above Frequency: Eating healthy diet Nearly every day ADLs requiring help None of the above Safety precautions in home/vehicle Yes Smoke, vape, chews tobacco No Difficulty hearing Difficulty seeing No Current Providers Specialists: I have reviewed specialist-related care of the patient in the medical record. Medical/Family history review Reviewed and updated problem list, medical/surgical/family/socia l history, medications, and allergies. Opioid use review Opioid Medications (last 90 days) No data to display Anxiety/Depression screening PHQ-2 Score: 0 (Lower risk for depression) Recommendation: no further intervention at this time Cognitive screening Mini Cog Score: 5 Cognitive screening reviewed and No further action needed (score 3-5). Functional Observation Was the patient's Timed Up AND Go test unsteady or >= 12 seconds? No Advance Care Planning Surrogate decision maker and/or advance care plan documented Measurements BP 150/82 Pulse 60 Temp 36.1 ?C (97 ?F) (Right Tympanic) Resp 16 Ht 158 cm (5' 2.21) Wt 67.6 kg (149 lb) BMI 27.07 kg/m? Vision Screening: Follows with optometry/ophthalmology Assessment/Plan Medicare annual wellness visit, subsequent (Z00.00) - Counseled on healthy diet and regular exercise - Fall avoidance information provided - Personalized prevention plan provided - Discussed need for and benefit of weight loss. BMI 27.07 kg/(m2) DO Florencio Zavala Jordan L, DO 10/07/2024 8:13 AM Signed Start on Vitamin E supplement 200-400 mg a day to help the fatty liver Lets check Elastography test of the liver at [facility] [phone] Jagjit Matias DO 10/07/2024 11:43 AM Signed CC: Letha Castro is a 84 year old female who presents to the office for follow up HPI: Hx of right renal cell carcinoma, had recent MRI abdomen and concerns for 2 separate 1 cm lesions on the left kidney. Has a follow up in the next 1 week with Urologist to determine next steps- she is asymptomatic Hyperglycemia, willing to have A1c rechecked and fasting labs HPL, willing to have labs rechecked Diagnosed with fatty liver on recent MRI abdomen. Willing to have additional liver testing, is asymptomatic. Admits to eating red meat 3 days a week- hamburger etc. JOHNY, hx of, taking iron supplement twice a day with food PAST MEDICAL HISTORY Diagnosis Date Arthritis Essential tremor History of transfusion Hyperlipidemia Iron deficiency Overweight (BMI 25.0-29.9) PMH - PAST MEDICAL HISTORY OF arthritis PMH - PAST MEDICAL HISTORY OF varicose veins PMH - PAST MEDICAL HISTORY OF mitral regurg Renal cell carcinoma (HCC) 10/23/2022 PAST SURGICAL HISTORY Procedure Laterality Date APPENDECTOMY APPENDECTOMY HX ARTHRP ACETBLR/PROX FEM PROSTC AGRFT/ALGRFT 01/28/2014 left arthroplasty ARTHRP KNE CONDYLEANDPLATU MEDIALANDLAT COMPARTMENTS 02/12/2009 Knee replacement, total left ARTHRP KNE CONDYLEANDPLATU MEDIALANDLAT COMPARTMENTS 2010 Right knee COLONOSCOPY 06/24/2021 repeat in 10 years COLONOSCOPY FLX DX W/COLLJ SPEC WHEN PFRMD 2005 Colonoscopy COLONOSCOPY FLX DX W/COLLJ SPEC WHEN PFRMD 07/17/2014 Colonoscopy EGD W/O [facility] SPEC VARICIES INJ 06/24/2021 ESOPHAGOGASTRODUODENOSCOPY TRANSORAL DIAGNOSTIC 07/17/2014 EGD JOINT REPLACEMENT HX PAST SURGICAL HISTORY OF Bilateral 2005 VEIN STRIPPING PAST SURGICAL HISTORY OF 1999 heart cath PAST SURGICAL HISTORY OF 03/2020 colonoscopy and EGD SKIN BIOPSY HX VASCULAR SURGERY PROCEDURE Current Outpatient Medications Medication Sig pantoprazole DR (PROTONIX) 40 mg tablet Take 1 tablet by mouth once daily. predniSONE (DELTASONE) 50 mg Take 1 tablet by mouth at 13 hours, 7 hours, and [address] dye infusion. (Patient not taking: Reported on 10/26/2023) acetaminophen (TYLENOL) 325 mg tablet Take 2 tablets by mouth every 6 hours as needed for pain. calcium carbonate (CALTRATE) 600 mg calcium (1,500 mg) tab Take by mouth. ferrous sulfate (IRON, FERROUS SULFATE,) 325 mg (65 mg iron) tablet Take 1 ta (more content not included)... Normal [facility] Basic metabolic 2000 panelon 10-03-2024 Anion gap [Moles/Vol] 13 mmol/L Normal 10-25 [facility] Comment on above: Order Comment: Speci men Type: BLOOD SPECIMEN Ordering Facility: [facility] Address: [address] [place] [address] Performed By: #### 2 132-9, 2276-4, 10311-8, 32811-9 #### [facility] CLIA [id number] [address] [place], [place] [address] [id number], [place] [address] [place] Calcium [Mass/Vol] 9.5 mg/dL Normal 8.5-10.2 [facility] Comment on above: Order Comment: Speci men Type: BLOOD SPECIMEN Ordering Facility: [facility] Address: [address] [place] [address] Performed By: #### 2 132-9, 2276-4, 07291-1, 72756-4 #### [facility] CLIA [id number] [address] [place] [address] [place] Chloride [Moles/Vol] 105 mmol/L Normal 98-107 [facility] Comment on above: Order Comment: Speci men Type: BLOOD SPECIMEN Ordering Facility: [facility] Address: [address] [place] [address] Performed By: #### 2 132-9, 2276-4, 52865-2, 58472-4 #### [facility] CLIA [id number] [address] [place] [address] [place] CO2 [Moles/Vol] 24 mmol/L Normal 22-30 [facility] Comment on above: Order Comment: Speci men Type: BLOOD SPECIMEN Ordering Facility: [facility] Address: [address] [place] [address] Performed By: #### 2 132-9, 2276-4, 04861-8, 51234-7 #### [facility] CLIA [id number] [address] [place] [address] [place] Creatinine [Mass/Vol] 0.80 mg/dL Normal 0.58-0.96 [facility] Comment on above: Order Comment: Speci men Type: BLOOD SPECIMEN Ordering Facility: [facility] Address: [address] [place] [address] Performed By: #### 2 132-9, 2276-4, 71577-2, 11916-6 #### [facility] CLIA [id number] [address] [place] [address] [place] eGFRcr SerPlBld CKD-EPI 2020 74 mL/min/1.73m??? Normal >=60 [facility] Comment on above: Order Comment: Mustapha christian Type: BLOOD SPECIMEN Ordering Facility: [facility] Address: [address] [place] [address] Result Comment: Debby mated Glomerular Filtration Rate (eGFR) is calculated using the 2020 CKD-EPI creatinine equation. This equation utilizes serum creatinine, sex, and age as parameters. The creatinine assay has traceable calibration to isotope dilution-mass spectrometry. Refer to KDIGO guidelines for clinical interpretation. In patients with unstable renal function, e.g. those with acute kidney injury, the eGFR may not accurately reflect actual GFR. Performed By: #### 2 132-9, 2276-4, 92397-6, 18402-5 #### [facility] CLIA [id number] [address] [place] [address] [place] Glucose [Mass/Vol] 102 mg/dL High 74-99 [facility] Comment on above: Order Comment: Mustapha christian Type: BLOOD SPECIMEN Ordering Facility: [facility] Address: [address] [place] [address] Result Comment: The [place] [employer] (ADA) provides guidance for cutoff values for fasting glucose and random glucose. The ADA defines fasting as no caloric intake for at least 8 hours. Fasting plasma glucose results between 100 to 125 mg/dL indicate increased risk for diabetes (prediabetes). Fasting plasma glucose results greater than or equal to 126 mg/dL meet the criteria for diagnosis of diabetes. In the absence of unequivocal hyperglycemia, results should be confirmed by repeat testing. In a patient with classic symptoms of hyperglycemia or hyperglycemic crisis, random plasma glucose results greater than or equal to 200 mg/dL meet the criteria for diagnosis of diabetes. Reference: Standards of Medical Care in Diabetes 2016, [place] [employer]. Diabetes Care. 2016.39(Suppl 1). Performed By: #### 2 132-9, 2276-4, 55053-8, 20780-2 #### [facility] CLIA [id number] [address] [place] [address] [place] Potassium [Moles/Vol] 4.2 mmol/L Normal 3.7-5.1 [facility] Comment on above: Order Comment: Speci men Type: BLOOD SPECIMEN Ordering Facility: [facility] Address: [address] [place] [address] Performed By: #### 2 132-9, 2276-4, 02509-1, 23160-2 #### [facility] CLIA [id number] [address] [place] [address] [place] Sodium [Moles/Vol] 142 mmol/L Normal 136-144 [facility] Comment on above: Order Comment: Speci men Type: BLOOD SPECIMEN Ordering Facility: [facility] Address: [address] [place] [address] Performed By: #### 2 132-9, 2276-4, 79085-8, 38537-9 #### [facility] CLIA [id number] [address] [place] [address] [place] Urea nitrogen [Mass/Vol] 32 mg/dL High 7-21 [facility] Comment on above: Order Comment: Speci men Type: BLOOD SPECIMEN Ordering Facility: [facility] Address: [address] [place] [address] Performed By: #### 2 132-9, 2276-4, 10694-8, 99529-5 #### [facility] CLIA [id number] [address] [place] [address] [place] MRI ABDOMEN WO/W IVCONon MRI ABDOMEN WO/W IVCON * * *Final Report* * * DATE OF EXAM: Aug 22 2024 10:11AM [facility] 0689 - MRI ABDOMEN WO/W IVCON / PROCEDURE REASON: History of renal cell cancer * * * * Physician Interpretation * * * * Examination: MRI ABDOMEN WO/W IVCON History: History of renal cell cancer . Prior partial right nephrectomy Comparison: 07/12/2023 CT and 11/04/22 TECHNIQUE: Routine liver mri protocol, including axial 3D gradient echo volume acquisition (VIBE) before and after Elucirem 7cc, axial gradient echo in- and opposed- phase, axial fast STIR, coronal HASTE. Image subtraction performed on 3D gradient echo images. RESULT: Liver: No mass. Fatty infiltration of the liver Biliary: No bile duct dilation. Cholelithiasis. Spleen: No mass. No splenomegaly. Pancreas: Multiple subcentimeter stable pancreatic cysts. No worrisome features. No focal pancreatic enlargement, duct dilatation or suspicious mass Adrenals: No mass. Kidneys: Bilateral renal cysts. Partial right nephrectomy. No gross obstructive uropathy. 1 cm posterior left renal enhancing focus is suspicious for small neoplasm. Image 66 series 18 Additional possible 1 cm small neoplasm left lateral kidney ,image 78 series 18. GI tract: No dilation or wall thickening. Lymph nodes: No abdominal lymphadenopathy. Mesentery/Peritoneum: No ascites or mass. Retroperitoneum: No mass. Vasculature: - Abdominal aorta and iliac arteries: No aneurysm. - Celiac and SMA: Patent without stenosis. - Portal venous system (SMV, splenic vein, portal vein and branches): Patent. - Hepatic veins: Patent. Bones/Soft Tissues: Degenerative changes. Lower thorax: Unremarkable. Moderate hiatal hernia Localizer images: No additional findings. IMPRESSION: Two small enhancing left renal foci may represent early developing neoplasm. Follow-up recommended. No recurrent or residual neoplasm in the right kidney No evidence of metastatic disease in the abdomen. Fatty infiltration of the liver. Hiatal hernia. Cholelithiasis. Stable pancreatic cysts Survey Interviewer: SAAD Transcribe Date/Time: Aug 28 2024 10:18A Dictated by : YULY SAMAYOA MD This examination was interpreted and the report reviewed and electronically signed by: YULY SAMAYOA MD on Aug 28 2024 10:36AM EST [id number] Normal [facility] XR CHEST 2V FRONTAL/LATon XR CHEST 2V FRONTAL/LAT * * *Final Report* * * DATE OF EXAM: Aug 22 2024 9:06AM [facility] [id number] - XR CHEST 2V FRONTAL/LAT / PROCEDURE REASON: History of renal cell cancer * * * * Physician Interpretation * * * * EXAMINATION: CHEST RADIOGRAPH (2 VIEW FRONTAL and LATERAL) CLINICAL HISTORY: History of renal cell cancer MQ: XC2_6 EXAM DATE/TIME: 08/22/2024 9:06 AM COMPARISON: 07/12/2023 RESULT: Lines, tubes, and devices: None. Lungs and pleura: No consolidation. No lung mass. No pleural effusion. No pneumothorax. Cardiomediastinal silhouette: Tortuous, ectatic aorta. No mediastinal masses. Stable cardiomegaly. Bones and soft tissues: Left shoulder prosthesis IMPRESSION: No acute radiographic abnormality. Survey Interviewer: SAAD Transcribe Date/Time: Aug 23 2024 2:48P Dictated by : ANNETTA TORIBIO MD This examination was interpreted and the report reviewed and electronically signed by: ANNETTA TORIBIO MD on Aug 23 2024 2:49PM EST [id number] Normal [facility] CNTHERAPYon 08-09-2024 CNTHERAPY OT/PT/Speech Visit ( PTWS) LETHA CASTRO ([id number]) 1940 F Date Time Provider Department 08/09/24 11:15 AM ROCKY LAROSE PTWS Date Time Provider Department Center 08/09/2024 11:15 AM [id number], BRENT PTWS Michelle Chester Reason for Visit: Physical Therapy [503] PT Discharge [752] Primary Visit Diagnosis:Abnormality of gait [R26.9] Other Visit Diagnosis:Sprain, gluteus medius, unspecified laterality, subsequent encounter [S76.019D] Allergies As of Date: 08/09/2024 Noted Allergy Reaction LATEX, NATURAL RUBBER 05/02/2014 2 - Rash 5 - Intolerance 9 - Itching CEPHALEXIN 11/11/2005 CHLORHEXIDINE 07/21/2022 2 - Rash DICLOFENAC 11/11/2005 IODINE 11/11/2005 2 - Rash Comments: During heart cath contrast dye LEVAQUIN (LEVOFLOXACIN) 11/11/2005 2 - Rash PENICILLINS 11/11/2005 2 - Rash Date Reviewed: 03/29/2024 Reviewed by: Elizabeth Watts LPN - Fully Assessed Prescriptions as of 08/09/2024 - pantoprazole DR (PROTONIX) 40 mg tablet Take 1 tablet by mouth once daily. - predniSONE (DELTASONE) 50 mg Take 1 tablet by mouth at 13 hours, 7 hours, and [address] dye infusion. - acetaminophen (TYLENOL) 325 mg tablet Take 2 tablets by mouth every 6 hours as needed for pain. - calcium carbonate (CALTRATE) 600 mg calcium (1,500 mg) tab Take by mouth. - ferrous sulfate (IRON, FERROUS SULFATE,) 325 mg (65 mg iron) tablet Take 1 tablet by mouth twice daily with meals. - cholecalciferol, vitamin D3, (VITAMIN D3 ORAL) Take by mouth once daily. Normal [facility] CNTHERAPYon 08-08-2024 CNTHERAPY OT/PT/Speech Visit ( PTWS) LETHA CASTRO ([id number]) 1940 F Date Time Provider Department 08/08/24 10:45 AM ROCKY LAROSE PTWS Date Time Provider Department Center 08/08/2024 10:45 AM [id number], BRENT PTWS Michelle Chester Reason for Visit: Physical Therapy [503] Primary Visit Diagnosis:Abnormality of gait [R26.9] Other Visit Diagnosis:Sprain, gluteus medius, unspecified laterality, subsequent encounter [S76.019D] Allergies As of Date: 08/08/2024 Noted Allergy Reaction LATEX, NATURAL RUBBER 05/02/2014 2 - Rash 5 - Intolerance 9 - Itching CEPHALEXIN 11/11/2005 CHLORHEXIDINE 07/21/2022 2 - Rash DICLOFENAC 11/11/2005 IODINE 11/11/2005 2 - Rash Comments: During heart cath contrast dye LEVAQUIN (LEVOFLOXACIN) 11/11/2005 2 - Rash PENICILLINS 11/11/2005 2 - Rash Date Reviewed: 03/29/2024 Reviewed by: Elizabeth Watts LPN - Fully Assessed Prescriptions as of 08/08/2024 - pantoprazole DR (PROTONIX) 40 mg tablet Take 1 tablet by mouth once daily. - predniSONE (DELTASONE) 50 mg Take 1 tablet by mouth at 13 hours, 7 hours, and [address] dye infusion. - acetaminophen (TYLENOL) 325 mg tablet Take 2 tablets by mouth every 6 hours as needed for pain. - calcium carbonate (CALTRATE) 600 mg calcium (1,500 mg) tab Take by mouth. - ferrous sulfate (IRON, FERROUS SULFATE,) 325 mg (65 mg iron) tablet Take 1 tablet by mouth twice daily with meals. - cholecalciferol, vitamin D3, (VITAMIN D3 ORAL) Take by mouth once daily. Normal [facility] LET[facility] ([id number]) 1940 F Date Time Provider Department 08/02/[address] [facility] During your visit today, we recorded the following information about you: Zora Call RN 08/02/2024 10:09 AM Signed Patient calls and states that she needs orders placed for yearly chest x ray and MRI abdomen. Advised patient that urology had already placed these orders and that she needs to get the done prior to 08/25/2024. Patient voiced understanding. Patient transferred to bar roller to schedule test. Zora Call RN Allergies As of Date: 08/02/2024 Noted Allergy Reaction LATEX, NATURAL RUBBER 05/02/2014 2 - Rash 5 - Intolerance 9 - Itching CEPHALEXIN 11/11/2005 CHLORHEXIDINE 07/21/2022 2 - Rash DICLOFENAC 11/11/2005 IODINE 11/11/2005 2 - Rash Comments: During heart cath contrast dye LEVAQUIN (LEVOFLOXACIN) 11/11/2005 2 - Rash PENICILLINS 11/11/2005 2 - Rash Date Reviewed: 03/29/2024 Reviewed by: Elizabeth Watts LPN - Fully Assessed Reason for Visit: Orders [681] Prescriptions as of 08/02/2024 - pantoprazole DR (PROTONIX) 40 mg tablet Take 1 tablet by mouth once daily. - predniSONE (DELTASONE) 50 mg Take 1 tablet by mouth at 13 hours, 7 hours, and [address] dye infusion. - acetaminophen (TYLENOL) 325 mg tablet Take 2 tablets by mouth every 6 hours as needed for pain. - calcium carbonate (CALTRATE) 600 mg calcium (1,500 mg) tab Take by mouth. - ferrous sulfate (IRON, FERROUS SULFATE,) 325 mg (65 mg iron) tablet Take 1 tablet by mouth twice daily with meals. - cholecalciferol, vitamin D3, (VITAMIN D3 ORAL) Take by mouth once daily. 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] 12/09/2014 Tremors of nervous system [R25.1] 01/26/2015 Overweight (BMI 25.0-29.9) [E66.3] Essential tremor [G25.0] Hyperlipidemia [E78.5] Glenohumeral arthritis, left [M19.012] 03/19/2018 Status post total shoulder arthroplasty [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*06/19/2018 Status post replacement of left shoulder joint *07/30/2018 Left hip pain [M25.552] 08/13/2020 Chronic left-sided low back pain with left-side*08/13/2020 Absolute anemia [D64.9] 05/11/2021 Acute constipation [K59.00] 05/11/2021 Limping [R26.89] 12/15/2021 History of hip replacement, total, left [Z96.64*12/15/2021 Nonrheumatic mitral valve regurgitation [I34.0] 12/15/2021 Vitamin D deficiency [E55.9] 12/15/2021 Vitamin B 12 deficiency [E53.8] 12/15/2021 Gastroesophageal reflux disease without esophag*06/29/2022 Renal cell carcinoma (HCC) [C64.9] 10/23/2022 Hyperglycemia [R73.9] 05/18/2023 Dyslipidemia [E78.5] 05/18/2023 Renal mass, right [N28.89] 05/18/2023 Abnormality of gait [R26.9] 08/21/2023 Tear of gluteus medius tendon [S76.019A] 08/21/2023 Impaired fasting glucose [R73.01] 03/29/2024 Sprain, gluteus medius, unspecified laterality,*07/10/2024 Encounter Status:Closed by ZORA CALL on 08/02/24 [facility] CNTHERAPYon 07-29-2024 CNTHERAPY OT/PT/Speech Visit ( PTWS) LETHA CASTRO ([id number]) 1940 F Date Time Provider Department 07/29/24 9:30 AM ROCKY LAROSE PTWS Date Time Provider Department [place] 07/29/2024 9:30 AM [id number], BRENT PTWS [employer] Reason for Visit: Physical Therapy [503] Primary Visit Diagnosis:Abnormality of gait [R26.9] Other Visit Diagnosis:Sprain, gluteus medius, unspecified laterality, subsequent encounter [S76.019D] Allergies As of Date: 07/29/2024 Noted Allergy Reaction LATEX, NATURAL RUBBER 05/02/2014 2 - Rash 5 - Intolerance 9 - Itching CEPHALEXIN 11/11/2005 CHLORHEXIDINE 07/21/2022 2 - Rash DICLOFENAC 11/11/2005 IODINE 11/11/2005 2 - Rash Comments: During heart cath contrast dye LEVAQUIN (LEVOFLOXACIN) 11/11/2005 2 - Rash PENICILLINS 11/11/2005 2 - Rash Date Reviewed: 03/29/2024 Reviewed by: Elizabeth Watts LPN - Fully Assessed Prescriptions as of 07/29/2024 - pantoprazole DR (PROTONIX) 40 mg tablet Take 1 tablet by mouth once daily. - predniSONE (DELTASONE) 50 mg Take 1 tablet by mouth at 13 hours, 7 hours, and [address] dye infusion. - acetaminophen (TYLENOL) 325 mg tablet Take 2 tablets by mouth every 6 hours as needed for pain. - calcium carbonate (CALTRATE) 600 mg calcium (1,500 mg) tab Take by mouth. - ferrous sulfate (IRON, FERROUS SULFATE,) 325 mg (65 mg iron) tablet Take 1 tablet by mouth twice daily with meals. - cholecalciferol, vitamin D3, (VITAMIN D3 ORAL) Take by mouth once daily. Normal [facility] CNTHERAPYon 07-26-2024 CNTHERAPY OT/PT/Speech Visit ( PTWS) LETHA CASTRO ([id number]) 1940 F Date Time Provider Department 07/26/24 3:00 PM ROCKY LAROSE PTWS Date Time Provider Department Center 07/26/2024 3:00 PM [id number], BRENT PTWS Michelle Chester Reason for Visit: Physical Therapy [503] Primary Visit Diagnosis:Abnormality of gait [R26.9] Other Visit Diagnosis:Sprain, gluteus medius, unspecified laterality, subsequent encounter [S76.019D] Allergies As of Date: 07/26/2024 Noted Allergy Reaction LATEX, NATURAL RUBBER 05/02/2014 2 - Rash 5 - Intolerance 9 - Itching CEPHALEXIN 11/11/2005 CHLORHEXIDINE 07/21/2022 2 - Rash DICLOFENAC 11/11/2005 IODINE 11/11/2005 2 - Rash Comments: During heart cath contrast dye LEVAQUIN (LEVOFLOXACIN) 11/11/2005 2 - Rash PENICILLINS 11/11/2005 2 - Rash Date Reviewed: 03/29/2024 Reviewed by: Elizabeth Watts LPN - Fully Assessed Prescriptions as of 07/26/2024 - pantoprazole DR (PROTONIX) 40 mg tablet Take 1 tablet by mouth once daily. - predniSONE (DELTASONE) 50 mg Take 1 tablet by mouth at 13 hours, 7 hours, and [address] dye infusion. - acetaminophen (TYLENOL) 325 mg tablet Take 2 tablets by mouth every 6 hours as needed for pain. - calcium carbonate (CALTRATE) 600 mg calcium (1,500 mg) tab Take by mouth. - ferrous sulfate (IRON, FERROUS SULFATE,) 325 mg (65 mg iron) tablet Take 1 tablet by mouth twice daily with meals. - cholecalciferol, vitamin D3, (VITAMIN D3 ORAL) Take by mouth once daily. Normal [facility] CNTHERAPYon 07-25-2024 CNTHERAPY OT/PT/Speech Visit ( PTWS) LETHA CASTRO ([id number]) 1940 F Date Time Provider Department 07/25/24 10:00 AM ROCKY LAROSE PTRADHA Date Time Provider Department Center 07/25/2024 10:00 AM [id number], BRENT PTRADHA Chester Reason for Visit: Physical Therapy [503] Primary Visit Diagnosis:Abnormality of gait [R26.9] Other Visit Diagnosis:Sprain, gluteus medius, unspecified laterality, subsequent encounter [S76.019D] Allergies As of Date: 07/25/2024 Noted Allergy Reaction LATEX, NATURAL RUBBER 05/02/2014 2 - Rash 5 - Intolerance 9 - Itching CEPHALEXIN 11/11/2005 CHLORHEXIDINE 07/21/2022 2 - Rash DICLOFENAC 11/11/2005 IODINE 11/11/2005 2 - Rash Comments: During heart cath contrast dye LEVAQUIN (LEVOFLOXACIN) 11/11/2005 2 - Rash PENICILLINS 11/11/2005 2 - Rash Date Reviewed: 03/29/2024 Reviewed by: Elizabeth Watts LPN - Fully Assessed Prescriptions as of 07/25/2024 - pantoprazole DR (PROTONIX) 40 mg tablet Take 1 tablet by mouth once daily. - predniSONE (DELTASONE) 50 mg Take 1 tablet by mouth at 13 hours, 7 hours, and [address] dye infusion. - acetaminophen (TYLENOL) 325 mg tablet Take 2 tablets by mouth every 6 hours as needed for pain. - calcium carbonate (CALTRATE) 600 mg calcium (1,500 mg) tab Take by mouth. - ferrous sulfate (IRON, FERROUS SULFATE,) 325 mg (65 mg iron) tablet Take 1 tablet by mouth twice daily with meals. - cholecalciferol, vitamin D3, (VITAMIN D3 ORAL) Take by mouth once daily. Clinical Education Consultant: Addendum Therapy (PT/OT/Speech/Resp) ID: [id number] 07/25/2024 10:36 AM Author: ROCKY LAROSE Signed by ROCKY LAROSE PT on 07/25/2024 at 10:36 AM * * * This document replaces document [id number] * * * Document text: Program_ID:[id number] Access Code: [email or web address] URL: [email or web address] Date: 07-25-2024 Prepared By: Rocky Larose Program Notes Exercises - Sidelying Hip Abduction - 2 x daily - 7 x weekly - 2 sets - 10 reps - Clamshell - 2 x daily - 7 x weekly - 2 sets - 10 reps Normal [facility] THERAPY NTon 07-25-2024 THERAPY NT HNO ID: [id number] Author: ROCKY LAROSE PT Service: ? Author Type: Physical Therapist Type: Therapy (PT/OT/Speech/Resp) Filed: 07/25/2024 10:36 Note Text: Program_ID:[id number] Access Code: [email or web address] URL: [email or web address] Date: 07-25-2024 Prepared By: Rocky Larose Program Notes Exercises - Sidelying Hip Abduction - 2 x daily - 7 x weekly - 2 sets - 10 reps - Clamshell - 2 x daily - 7 x weekly - 2 sets - 10 reps Normal [facility] [id number] 07-10-2024 [id number] HNO ID: [id number] Author: ROCKY LAROSE PT Service: ? Author Type: Physical Therapist Type: [id number] Filed: 07/10/2024 17:04 Note Text: [facility] Physical Therapy Plan of Care Certification Patient Name: Letha Castro : 1940 [facility] #: [id number] Date: 07/10/2024 To: Jagjit Matias, DO From Therapist: Rocyk Larose PT RE: Patient Certification/ Recertification Your review, approval and electronic signature are required in order to comply with Payor: [employer] MEDICARE / Plan: [employer] MEDICARE PPO / Product Type: PPO / regulations. The identified Physical Therapy PLAN OF CARE for the patient is as follows: R26.9 Abnormality of gait (primary encounter diagnosis) S76.019D Tear of gluteus medius tendon, unspecified laterality, subsequent encounter R26.9 Gait disorder S76.019D Sprain, gluteus medius, unspecified laterality, subsequent encounter PLAN OF CARE: Assessment: Letha Castro presents with chief complaint of functional mobility weakness and instability that interferes with walking . The patient presents with impairments in ADL's, balance, gait, independence in exercise, overall function, and strength. PROMIS? (Patient-Reported Outcomes Measurement Information System) scores were reviewed and identified as within normal limits. Prognosis for therapy is Good due to: current objective clinical presentation, good overall health status, within-session changes, good support system/ coping skills. The patient will benefit from skilled therapy services to meet the goals established for this plan of care as noted below. Assessment Fall Risk : Active at risk Goals for Episode of Care: established 07/10/24 Patient will report no falls. Improve score on Timed Up and Go Test to 8.54 seconds to reflect decreased fall risk. Improve performance on 4 Stage Balance Test to symmetrical SLS to reflect decreased fall risk. Earle in home exercise program including cardiovascular exercise. Perform all functional mobility with decreased report of symptoms / pain. Increase strength of LEs(especially R hip abductors) to WFL in order to normalize gait. Patient Goals: improve balance and improve safety with functional mobility. Time Frame for Goals and Treatment : 08/21/24 Planned Interventions, Frequency, and Duration: Current Frequency: 2x/week Duration: 6 weeks Total Number of Visits Planned: 12 Planned Treatment Interventions: Therapeutic exercise (65032), Neuromuscular re-education (09280), Manual therapy (40159), Therapeutic activities (94342), Self-[place] [facility] management (27897), Gait Training (61392), Patient/Family/Caregiver Education, Body Mechanics Training, General Conditioning, Functional training PLAN FOR NEXT VISIT: Review, correct and progress HEP to tolerance. Focus on gait training and B LE strengthening, especially R LE during stance phase of gait. Address hip abduction strength. Balance training prn, especially R SLS. Patient demonstrates good understanding of plan of care and treatment. The above goals and plan of care were discussed and agreed upon by patient/family. For further details regarding this patient refer to the Physical Therapy electronically documented visit dated 07/10/2024. Provider Attestation I have reviewed the treatment plan for Letha Ashley Gloria, [facility]# [id number] for the period of 07/10/24 -- 08/21/24, established on 07/10/2024. Signature certifies the need for therapy services. Normal [facility] CNTHERAPYon 07-10-2024 CNTHERAPY OT/PT/Speech Visit ( PTWS) LETHA CASTRO ([id number]) 1940 F Date Time Provider Department 07/10/24 9:00 AM ROCKY LAROSE PTWS Date Time Provider Department Center 07/10/2024 9:00 AM [id number], BRENT PTWS Michelle Chester Reason for Visit: PT Eval [747] Physical Therapy [503] Primary Visit Diagnosis:Abnormality of gait [R26.9] Other Visit Diagnoses:Tear of gluteus medius tendon, unspecified laterality, subsequent encounter [S76.019D] Gait disorder [R26.9] Sprain, gluteus medius, unspecified laterality, subsequent encounter [S76.019D] Allergies As of Date: 07/10/2024 Noted Allergy Reaction LATEX, NATURAL RUBBER 05/02/2014 2 - Rash 5 - Intolerance 9 - Itching CEPHALEXIN 11/11/2005 CHLORHEXIDINE 07/21/2022 2 - Rash DICLOFENAC 11/11/2005 IODINE 11/11/2005 2 - Rash Comments: During heart cath contrast dye LEVAQUIN (LEVOFLOXACIN) 11/11/2005 2 - Rash PENICILLINS 11/11/2005 2 - Rash Date Reviewed: 03/29/2024 Reviewed by: Elizabeth Watts LPN - Fully Assessed Prescriptions as of 07/10/2024 - pantoprazole DR (PROTONIX) 40 mg tablet Take 1 tablet by mouth once daily. - predniSONE (DELTASONE) 50 mg Take 1 tablet by mouth at 13 hours, 7 hours, and [address] dye infusion. - acetaminophen (TYLENOL) 325 mg tablet Take 2 tablets by mouth every 6 hours as needed for pain. - calcium carbonate (CALTRATE) 600 mg calcium (1,500 mg) tab Take by mouth. - ferrous sulfate (IRON, FERROUS SULFATE,) 325 mg (65 mg iron) tablet Take 1 tablet by mouth twice daily with meals. - cholecalciferol, vitamin D3, (VITAMIN D3 ORAL) Take by mouth once daily. Normal [facility] SCREENINGon 05-30-2024 [facility] SCREENING * * *Final Report* * * DATE OF EXAM: May 30 2024 1:11PM JULIANN 0581 - [facility] SCREENING / PROCEDURE REASON: Encounter for screening mammogram for malignant neoplasm of breast * * * * Physician Interpretation * * * * RESULT: [facility] [address] [place] [address] #[id number] - MATT SCREENING HISTORY: 83 year-old patient seen for screening. Patient is asymptomatic in both breasts. Patient states no personal history of breast cancer. The patient has a family history of breast cancer. COMPARISON STUDIES: The present examination has been compared to prior imaging studies dated 05/15/2018 (mammogram), 09/16/2019 (mammogram), 12/10/2020 (mammogram), 01/05/2022 (mammogram) and 02/13/2023 (mammogram). MAMMOGRAM TECHNIQUE: The study was acquired using full field digital technology and interpreted from soft copy. MAMMOGRAM FINDINGS: There are scattered areas of fibroglandular density. No suspicious masses, calcifications or other abnormalities are seen in either breast. There are no significant interval changes. IMPRESSION: There is no mammographic evidence of malignancy in either breast. Routine screening mammogram is recommended. Annual mammogram will be due in 1 year. BI-RADS Category 1: Negative RISK: Based on the Tyrer-Cuzick (TC) risk assessment model, this patient has a 1.3% lifetime risk of developing breast cancer, meaning they are at average risk for developing breast cancer. However, this is only an estimate based on available history provided on the patient's questionnaire. We encourage all patients to talk with their providers about these results, further recommendations for managing breast health, and appropriate supplemental screening options if the patient has dense breast tissue. Interpreting Radiologist: Ana Maria Rodriguez M.D. Electronically signed on: 06/01/2024 Survey Interviewer: MARK Transcribe Date/Time: May 30 2024 12:54P Dictated by: ANA MARIA RODRIGUEZ MD This examination was interpreted and the report reviewed and electronically signed by: ANA MARIA RODRIGUEZ MD on Jun 01 2024 12:20PM EST [id number] Normal [facility] CNOVon 03-29-2024 CNOV Office Visit (FAMPWS ) LETHA CASTRO ([id number]) 1940 F Date Time Provider Department 03/29/24 12:20 PM JAGJIT MATIASPRADHA During your visit today, we recorded the following information about you: Temperature Pulse Respiration Blood pressure 98.5 degrees 64/minute 20/minute 130/80 Weight 69.4 kg Jagjit Matias, 03/29/2024 5:36 PM Signed CC: Letha Castro is a 83 year old female who presents to the office for follow up HPI: Patient is overall doing well. She had partial nephrectomy robotic laparoscopic procedure in June [address] Skylar Smith. Bowel movements are returning to normal. Appetite is normal. She has been able to walk for exercise. She has fatigue still. Feels her incisional areas healed up well without concerns. She had recent follow up CT renal and appt with Urologist- feels everything is going well without concerns. HTN, Blood pressure overall has been controlled Arthritis, stable. HPL, stable Hx of hyperglycemia, tries to keep diet well controlled Previously she had some fatigue but this is now improved, hx of vitamin D and iron deficiency, she is taking her supplement. Levels are much improved B/l hand pain, osteoarthritis, b/l foot aching and soreness. Worse with prolonged standing and walking- better with rest. Tries to avoid NSAIDs orally due to her renal surgery history PAST MEDICAL HISTORY Diagnosis Date Arthritis Essential tremor History of transfusion Hyperlipidemia Iron deficiency Overweight (BMI 25.0-29.9) PMH - PAST MEDICAL HISTORY OF arthritis PMH - PAST MEDICAL HISTORY OF varicose veins PMH - PAST MEDICAL HISTORY OF mitral regurg Renal cell carcinoma (HCC) 10/23/2022 PAST SURGICAL HISTORY Procedure Laterality Date APPENDECTOMY APPENDECTOMY HX ARTHRP ACETBLR/PROX FEM PROSTC AGRFT/ALGRFT 01/28/2014 left arthroplasty ARTHRP KNE CONDYLEANDPLATU MEDIALANDLAT COMPARTMENTS 02/12/2009 Knee replacement, total left ARTHRP KNE CONDYLEANDPLATU MEDIALANDLAT COMPARTMENTS 2009 Right knee COLONOSCOPY 06/24/2021 repeat in 10 years COLONOSCOPY FLX DX W/COLLJ SPEC WHEN PFRMD 2004 Colonoscopy COLONOSCOPY FLX DX W/COLLJ SPEC WHEN PFRMD 07/17/2014 Colonoscopy EGD W/O [facility] SPEC VARICIES INJ 06/24/2021 ESOPHAGOGASTRODUODENOSCOPY TRANSORAL DIAGNOSTIC 07/17/2014 EGD JOINT REPLACEMENT HX PAST SURGICAL HISTORY OF Bilateral 2005 VEIN STRIPPING PAST SURGICAL HISTORY OF 1999 heart cath PAST SURGICAL HISTORY OF 03/2020 colonoscopy and EGD SKIN BIOPSY HX VASCULAR SURGERY PROCEDURE Current Outpatient Medications Medication Sig pantoprazole DR (PROTONIX) 40 mg tablet Take 1 tablet by mouth once daily. predniSONE (DELTASONE) 50 mg Take 1 tablet by mouth at 13 hours, 7 hours, and [address] dye infusion. (Patient not taking: Reported on 10/26/2023) acetaminophen (TYLENOL) 325 mg tablet Take 2 tablets by mouth every 6 hours as needed for pain. calcium carbonate (CALTRATE) 600 mg calcium (1,500 mg) tab Take by mouth. ferrous sulfate (IRON, FERROUS SULFATE,) 325 mg (65 mg iron) tablet Take 1 tablet by mouth twice daily with meals. cholecalciferol, vitamin D3, (VITAMIN D3 ORAL) Take by mouth once daily. No current facility-administered medications for this visit. ALLERGIES Allergen Reactions Latex, Natural Rubb* Rash, Intolerance, Itching Cephalexin Chlorhexidine Rash Diclofenac Iodine Rash During heart cath contrast dye Levaquin [Levofloxa* Rash Penicillins Rash Social History Tobacco Use Smoking status: Never Smokeless tobacco: Never Vaping Use Vaping status: Never Used Substance Use Topics Alcohol use: No Drug use: No ROS: See HPI PE: BP 130/80 Pulse 64 Temp (Src) 98.5 (Temporal) Resp 20 Wt 153 lb (69.4kg) Gen: AANDOX3, NAD, non-toxic appearing HEENT: PERRLA, EOMs intact b/l, nares without drainage, pharynx without erythema, exudate, lesions, or drainage. Uvula midline. Neck: No LAD, no thyromegaly, no meningismus. CV: RRR, no murmur Lungs: CTA b/l, no wheezing Skin: No rashes, lesions, or wounds on exposed skin. No edema legs, normal pulses Significant varicose veins in legs b/l OA changes of DIP and PIP joints of the hands diffusely with inflammation OA changes of the toes and mid foot Gait antalgic and slowed Resting tremor ASSESSMENT/PLAN: 1. Impaired fasting glucose - ICD9: 790.21, ICD10: R73.01 (primary diagnosis) Diet controlled, stable 2. Encounter for screening mammogram for malignant neoplasm of breast - ICD9: V76.12, ICD10: Z12.31 - Set up for mammogram, yearly mammogram recommended - Encouraged monthly BSE - Increase calcium intake with supplements or by diet (goal of 4054-9027 mg/day - MATT SCREENING 3. Vitamin D deficiency - ICD9: 268.9, ICD10: E55.9 Stable, continue supplement 4. Dyslipidemia - ICD9: 272.4, ICD10: E78.5 - Con (more content not included)... Normal [facility] 25(OH)D3 SerPl-mCncon 2024 25-hydroxyvitamin D3 [Mass/Vol] 58.6 ng/mL Normal 31.0-80.0 [facility] Comment on above: Order Comment: Specbarry christian Type: BLOOD SPECIMEN Ordering Facility: [facility] Address: [address] [place] [address] Performed By: #### 1 989-3 #### [facility] CLIA [id number] [address] [place] [address] [place] CBC panel Auto (Bld)on 03-27 Erythrocyte distribution width (RBC) [Ratio] 13.4 % Normal 11.5-15.0 [facility] Comment on above: Order Comment: Mustapha christian Type: BLOOD SPECIMEN Ordering Facility: [facility] Address: [address] [place] [address] Performed By: #### 1 989-3 #### [facility] CLIA [id number] [address] [place] [address] [place] Hematocrit (Bld) [Volume fraction] 43.7 % Normal 36.0-46.0 [facility] Comment on above: Order Comment: Mustapha men Type: BLOOD SPECIMEN Ordering Facility: [facility] Address: [address] [place] [address] Performed By: #### 1 989-3 #### [facility] CLIA [id number] [address] [place] [address] [place] Hemoglobin (Bld) [Mass/Vol] 13.6 g/dL Normal 11.5-15.5 [facility] Comment on above: Order Comment: Speci men Type: BLOOD SPECIMEN Ordering Facility: [facility] Address: [address] [place] [address] Performed By: #### 1 989-3 #### [facility] CLIA [id number] [address] [place] [address] [place] MCH (RBC) [Entitic mass] 27.0 pg Normal 26.0-34.0 [facility] Comment on above: Order Comment: Speci men Type: BLOOD SPECIMEN Ordering Facility: [facility] Address: [address] [place] [address] Performed By: #### 1 989-3 #### [facility] CLIA [id number] [address] [place] [address] [place] MCHC (RBC) [Mass/Vol] 31.1 g/dL Normal 30.5-36.0 [facility] Comment on above: Order Comment: Speci men Type: BLOOD SPECIMEN Ordering Facility: [facility] Address: [address] [place] [address] Performed By: #### 1 989-3 #### [facility] CLIA [id number] [address] [place] [address] [place] MCV (RBC) [Entitic vol] 86.9 fL Normal 80.0-100.0 [facility] Comment on above: Order Comment: Speci men Type: BLOOD SPECIMEN Ordering Facility: [facility] Address: [address] [place] [address] Performed By: #### 1 989-3 #### [facility] CLIA [id number] [address] [place] [address] [place] Nucleated RBC (Bld) [#/Vol] 10*3/uL Normal <0.01 [facility] Comment on above: Order Comment: Speci men Type: BLOOD SPECIMEN Ordering Facility: [facility] Address: [address] [place] [address] Performed By: #### 1 989-3 #### [facility] CLIA [id number] [address] [place] [address] [place] Platelet mean volume (Bld) [Entitic vol] 11.1 fL Normal 9.0-12.7 [facility] Comment on above: Order Comment: Speci men Type: BLOOD SPECIMEN Ordering Facility: [facility] Address: [address] [place] [address] Performed By: #### 1 989-3 #### [facility] CLIA [id number] [address] [place] [address] [place] Platelets (Bld) [#/Vol] 247 10*3/uL Normal 150-400 [facility] Comment on above: Order Comment: Speci men Type: BLOOD SPECIMEN Ordering Facility: [facility] Address: [address] [place] [address] Performed By: #### 1 989-3 #### [facility] CLIA [id number] [address] [place] [address] [place] RBC (Bld) [#/Vol] 5.03 10*6/uL Normal 3.90-5.20 [facility] Comment on above: Order Comment: Speci men Type: BLOOD SPECIMEN Ordering Facility: [facility] Address: [address] [place] [address] Performed By: #### 1 989-3 #### [facility] CLIA [id number] [address] [place] [address] [place] WBC (Bld) [#/Vol] 5.40 10*3/uL Normal 3.70-11.00 [facility] Comment on above: Order Comment: Speci men Type: BLOOD SPECIMEN Ordering Facility: [facility] Address: [address] [place] [address] Performed By: #### 1 989-3 #### [facility] CLIA [id number] [address] [place] [address] [place] Comprehensive metabolic 2000 panelon 03-27-2024 Albumin [Mass/Vol] 4.2 g/dL Normal 3.9-4.9 [facility] Comment on above: Order Comment: Speci men Type: BLOOD SPECIMEN Ordering Facility: [facility] Address: [address] [place] [address] Performed By: #### 1 989-3 #### [facility] CLIA [id number] [address] [place] [address] [place] ALP [Catalytic activity/Vol] 138 U/L High 34-123 [facility] Comment on above: Order Comment: Speci men Type: BLOOD SPECIMEN Ordering Facility: [facility] Address: [address] [place] [address] Performed By: #### 1 989-3 #### [facility] CLIA [id number] [address] [place] [address] [place] ALT [Catalytic activity/Vol] 21 U/L Normal 7-38 [facility] Comment on above: Order Comment: Speci men Type: BLOOD SPECIMEN Ordering Facility: [facility] Address: [address] [place] [address] Performed By: #### 1 989-3 #### [facility] CLIA [id number] [address] [place] [address] [place] Anion gap [Moles/Vol] 12 mmol/L Normal 8-15 [facility] Comment on above: Order Comment: Speci men Type: BLOOD SPECIMEN Ordering Facility: [facility] Address: [address] [place] [address] Performed By: #### 1 989-3 #### [facility] CLIA [id number] [address] [place] [address] [place] AST [Catalytic activity/Vol] 27 U/L Normal 13-35 [facility] Comment on above: Order Comment: Speci men Type: BLOOD SPECIMEN Ordering Facility: [facility] Address: [address] [place] [address] Performed By: #### 1 989-3 #### [facility] CLIA [id number] [address] [place] [address] [place] Bilirubin [Mass/Vol] 0.8 mg/dL Normal 0.2-1.3 [facility] Comment on above: Order Comment: Speci men Type: BLOOD SPECIMEN Ordering Facility: [facility] Address: [address] [place] [address] Performed By: #### 1 989-3 #### [facility] CLIA [id number] [address] [place] [address] [place] Calcium [Mass/Vol] 9.8 mg/dL Normal 8.5-10.2 [facility] Comment on above: Order Comment: Speci men Type: BLOOD SPECIMEN Ordering Facility: [facility] Address: [address] [place] [address] Performed By: #### 1 989-3 #### [facility] CLIA [id number] [address] [place], [place] [id number] [place] Chloride [Moles/Vol] 103 mmol/L Normal 98-107 [facility] Comment on above: Order Comment: Speci men Type: BLOOD SPECIMEN Ordering Facility: [facility] Address: [address] [place], [place] [id number] Performed By: #### 1 989-3 #### [facility] CLIA [id number] [address] [place], [place] [id number] [place] CO2 [Moles/Vol] 26 mmol/L Normal 22-30 [facility] Comment on above: Order Comment: Speci men Type: BLOOD SPECIMEN Ordering Facility: [facility] Address: [address] [place] [address] Performed By: #### 1 989-3 #### [facility] CLIA [id number] [address] [place] [address] [place] Creatinine [Mass/Vol] 0.79 mg/dL Normal 0.58-0.96 [facility] Comment on above: Order Comment: Speci men Type: BLOOD SPECIMEN Ordering Facility: [facility] Address: [address] [place] [address] Performed By: #### 1 989-3 #### [facility] CLIA [id number] [address] [place] [address] [place] Creatinine and Glomerular filtration rate.predicted panel (S/P/Bld) 75 mL/min/1.73m??? Normal >=60 [facility] Comment on above: Order Comment: Speci men Type: BLOOD SPECIMEN Ordering Facility: [facility] Address: [address] [place] [address] Result Comment: Debby mated Glomerular Filtration Rate (eGFR) is calculated using the 2020 CKD-EPI creatinine equation. This equation utilizes serum creatinine, sex, and age as parameters. The creatinine assay has traceable calibration to isotope dilution-mass spectrometry. Refer to KDIGO guidelines for clinical interpretation. In patients with unstable renal function, e.g. those with acute kidney injury, the eGFR may not accurately reflect actual GFR. Performed By: #### 1 989-3 #### [facility] CLIA [id number] [address] [place] [address] [place] Glucose [Mass/Vol] 92 mg/dL Normal 74-99 [facility] Comment on above: Order Comment: Speci men Type: BLOOD SPECIMEN Ordering Facility: [facility] Address: [address] [place] [address] Result Comment: The [place] [employer] (ADA) provides guidance for cutoff values for fasting glucose and random glucose. The ADA defines fasting as no caloric intake for at least 8 hours. Fasting plasma glucose results between 100 to 125 mg/dL indicate increased risk for diabetes (prediabetes). Fasting plasma glucose results greater than or equal to 126 mg/dL meet the criteria for diagnosis of diabetes. In the absence of unequivocal hyperglycemia, results should be confirmed by repeat testing. In a patient with classic symptoms of hyperglycemia or hyperglycemic crisis, random plasma glucose results greater than or equal to 200 mg/dL meet the criteria for diagnosis of diabetes. Reference: Standards of Medical Care in Diabetes 2016, [place] [employer]. Diabetes Care. 2016.39(Suppl 1). Performed By: #### 1 989-3 #### [facility] CLIA [id number] [address] [place] [address] [place] Potassium [Moles/Vol] 4.2 mmol/L Normal 3.7-5.1 [facility] Comment on above: Order Comment: Speci men Type: BLOOD SPECIMEN Ordering Facility: [facility] Address: [address] [place] [address] Performed By: #### 1 989-3 #### [facility] CLIA [id number] [address] [place] [address] [place] Protein [Mass/Vol] 7.2 g/dL Normal 6.3-8.0 [facility] Comment on above: Order Comment: Speci men Type: BLOOD SPECIMEN Ordering Facility: [facility] Address: [address] [place] [address] Performed By: #### 1 989-3 #### [facility] CLIA [id number] [address] [place] [address] [place] Sodium [Moles/Vol] 141 mmol/L Normal 136-144 [facility] Comment on above: Order Comment: Speci men Type: BLOOD SPECIMEN Ordering Facility: [facility] Address: [address] [place] [address] Performed By: #### 1 989-3 #### [facility] CLIA [id number] [address] [place] [address] [place] Urea nitrogen [Mass/Vol] 24 mg/dL High 7-21 [facility] Comment on above: Order Comment: Mustapha christian Type: BLOOD SPECIMEN Ordering Facility: [facility] Address: [address] [place] [address] Performed By: #### 1 989-3 #### [facility] CLIA [id number] [address] [place] [address] [place] HbA1c (Bld)on 03-27-2024 Average glucose Estimated from glycated hemoglobin (Bld) [Mass/Vol] 117 mg/dL Normal [facility] Comment on above: Order Comment: Mustapha christian Type: BLOOD SPECIMEN Ordering Facility: [facility] Address: [address] [place] [address] Result Comment: eAG: (Estimated average glucose) is a calculated value from HgbA1c and is entry level marketing representative of the average blood glucose level in the last 2-3 month period. Performed By: #### 2 132-9, 2276-4, 90974-3, 47524-7 #### [facility] CLIA [id number] [address] [place] [address] [place] HbA1c (Bld) [Mass fraction] 5.7 % High 4.3-5.6 [facility] Comment on above: Order Comment: Mustapha christian Type: BLOOD SPECIMEN Ordering Facility: [facility] Address: [address] [place] [address] Result Comment: [place] Diabetes Association guidelines indicate that patients with HgbA1c in the range 5.7-6.4% are at increased risk for development of diabetes, and intervention by lifestyle modification may be beneficial. HgbA1c greater or equal to 6.5% is considered diagnostic of diabetes. Performed By: #### 2 132-9, 2276-4, 08005-2, 21178-4 #### [facility] CLIA [id number] [address] [place], [place] [id number] [place] Iron and Iron binding capaci ty panelon 03-27-2024 Iron [Mass/Vol] 90 ug/dL Normal 41-186 [facility] Comment on above: Order Comment: Speci men Type: BLOOD SPECIMEN Ordering Facility: [facility] Address: [address] [place] [address] Performed By: #### 1 989-3 #### [facility] CLIA [id number] [address] [place] [address] [place] Iron binding capacity [Mass/Vol] 293 ug/dL Normal 232-386 [facility] Comment on above: Order Comment: Speci men Type: BLOOD SPECIMEN Ordering Facility: [facility] Address: [address] [place] [address] Performed By: #### 1 989-3 #### [facility] CLIA [id number] [address] [place] [address] [place] Iron/TIBC [Molar ratio] 30.7 % Normal 15.0-57.0 [facility] Comment on above: Order Comment: Speci men Type: BLOOD SPECIMEN Ordering Facility: [facility] Address: [address] [place] [address] Performed By: #### 1 989-3 #### [facility] CLIA [id number] [address] [place] [address] [place] Vit [facility]12 [facility]25 Cobalamin (Vitamin B12) [Mass/Vol] 641 pg/mL Normal 232-1245 [facility] Comment on above: Order Comment: Speci men Type: BLOOD SPECIMEN Ordering Facility: [facility] Address: [address] [place] [address] Performed By: #### 1 989-3 #### [facility] CLIA [id number] [address] [place] [address] [place] Abbi 03-25-2024 TANYA Telephone (FAMPWS) GLORIALETHA ([id number]) 1940 F Date Time Provider Department 03/25/24 JAGJIT MATIAS During your visit today, we recorded the following information about you: Danya Jones RN 03/25/2024 11:15 AM Signed Patient calls to request lab orders be placed prior to appointment with PCP on 03/29/2024. Patient was to have completed in February but had to cancel her appointment so didn't get labs completed. Pended previous orders from February for review. Patient requests a call back at [phone] once orders are placed. TRUDY Clinton Alyson Taylor, APRN.WOMEN'S BASKETBALL COACH 03/25/2024 4:24 PM Signed Lab signed. Please make sure pt is fasting. Thank you, Kelsey Mann APRN.Elizabeth Wagner LPN 03/25/2024 4:34 PM Signed Pt. informed message left. Allergies As of Date: 03/25/2024 Noted Allergy Reaction LATEX, NATURAL RUBBER 05/02/2014 2 - Rash 5 - Intolerance 9 - Itching CEPHALEXIN 11/11/2005 CHLORHEXIDINE 07/21/2022 2 - Rash DICLOFENAC 11/11/2005 IODINE 11/11/2005 2 - Rash Comments: During heart cath contrast dye LEVAQUIN (LEVOFLOXACIN) 11/11/2005 2 - Rash PENICILLINS 11/11/2005 2 - Rash Date Reviewed: 10/26/2023 Reviewed by: Rick Leong APRN.WOMEN'S BASKETBALL COACH - Fully Assessed Reason for Visit: Orders [681] Primary Visit Diagnosis:Other iron deficiency anemia [D50.8] Other Visit Diagnoses:Dyslipidemia [E78.5] Vitamin D deficiency [E55.9] Vitamin B 12 deficiency [E53.8] Impaired fasting glucose [R73.01] Order(s):HEMOGLOBIN A1C [TTZMA0O] Order #: [id number] FUTURE VITAMIN B12 [SQB12] Order #: [id number] FUTURE VITAMIN D 25 HYDROXY [SQVITD] Order #: [id number] FUTURE COMPREHENSIVE METABOLIC PANEL [SQCMP] Order #: [id number] FUTURE IRON AND TIBC [SQIRON] Order #: [id number] FUTURE COMPLETE BLOOD COUNT [SQCBC] Order #: [id number] FUTURE Prescriptions as of 03/25/2024 - pantoprazole DR (PROTONIX) 40 mg tablet Take 1 tablet by mouth once daily. - predniSONE (DELTASONE) 50 mg Take 1 tablet by mouth at 13 hours, 7 hours, and [address] dye infusion. - acetaminophen (TYLENOL) 325 mg tablet Take 2 tablets by mouth every 6 hours as needed for pain. - calcium carbonate (CALTRATE) 600 mg calcium (1,500 mg) tab Take by mouth. - ferrous sulfate (IRON, FERROUS SULFATE,) 325 mg (65 mg iron) tablet Take 1 tablet by mouth twice daily with meals. - cholecalciferol, vitamin D3, (VITAMIN D3 ORAL) Take by mouth once daily. 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/19/2018 Status post replacement of left shoulder joint *07/30/2018 Left hip pain [M25.552] 08/13/2020 Chronic left-sided low back pain with left-side*08/13/2020 Absolute anemia [D64.9] 05/11/2021 Acute constipation [K59.00] 05/11/2021 Fatigue [R53.83] 05/11/2021 Limping [R26.89] 12/15/2021 History of hip replacement, total, left [Z96.64*12/15/2021 Nonrheumatic mitral valve regurgitation [I34.0] 12/15/2021 Vitamin D deficiency [E55.9] 12/15/2021 Vitamin B12 deficiency [E53.8] 12/15/2021 Gastroesophageal reflux disease without esophag*06/29/2022 Renal cell carcinoma (HCC) [C64.9] 10/23/2022 Hyperglycemia [R73.9] 05/18/2023 Dyslipidemia [E78.5] 05/18/2023 Renal mass, right [N28.89] 05/18/2023 Gait disorder [R26.9] 08/21/2023 Tear of gluteus medius tendon [S76.019A] 08/21/2023 Encounter Status:Closed by ELIZABETH WATTS LPN on 03/25/24 [facility] GLORIALETHA B ([id number]) 1940 F Date Time Provider Department 10/27/[address] [facility] During your visit today, we recorded the following information about you: Rick Leong APRN.WOMEN'S BASKETBALL COACH 10/27/2023 7:04 AM Signed Please let Letha know I received her lab results. Her iron and hgb are in a good range, so no concerns there. It does show she has some dehydration-please reinforce that she get a minimum of 60-80oz of water daily. Her vitamin levels all look good. Rick Leong APRN.WOMEN'S BASKETBALL COACH Vandana Valverde MA 10/27/2023 9:16 AM Signed Pt informed Vandana Valverde MA Allergies As of Date: 10/27/2023 Noted Allergy Reaction LATEX, NATURAL RUBBER 05/02/2014 2 - Rash 5 - Intolerance 9 - Itching CEPHALEXIN 11/11/2005 CHLORHEXIDINE 07/21/2022 2 - Rash DICLOFENAC 11/11/2005 IODINE 11/11/2005 2 - Rash Comments: During heart cath contrast dye LEVAQUIN (LEVOFLOXACIN) 11/11/2005 2 - Rash PENICILLINS 11/11/2005 2 - Rash Date Reviewed: 10/26/2023 Reviewed by: Rick Leong APRN.WOMEN'S BASKETBALL COACH - Fully Assessed Reason for Visit: Results [95] Prescriptions as of 10/27/2023 - pantoprazole DR (PROTONIX) 40 mg tablet Take 1 tablet by mouth once daily. - predniSONE (DELTASONE) 50 mg Take 1 tablet by mouth at 13 hours, 7 hours, and [address] dye infusion. - acetaminophen (TYLENOL) 325 mg tablet Take 2 tablets by mouth every 6 hours as needed for pain. - calcium carbonate (CALTRATE) 600 mg calcium (1,500 mg) tab Take by mouth. - ferrous sulfate (IRON, FERROUS SULFATE,) 325 mg (65 mg iron) tablet Take 1 tablet by mouth twice daily with meals. - cholecalciferol, vitamin D3, (VITAMIN D3 ORAL) Take by mouth once daily. 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*06/19/2018 Status post replacement of left shoulder joint *07/30/2018 Left hip pain [M25.552] 08/13/2020 Chronic left-sided low back pain with left-side*08/13/2020 Absolute anemia [D64.9] 05/11/2021 Acute constipation [K59.00] 05/11/2021 Fatigue [R53.83] 05/11/2021 Limping [R26.89] 12/15/2021 History of hip replacement, total, left [Z96.64*12/15/2021 Nonrheumatic mitral valve regurgitation [I34.0] 12/15/2021 Vitamin D deficiency [E55.9] 12/15/2021 Vitamin B12 deficiency [E53.8] 12/15/2021 Gastroesophageal reflux disease without esophag*06/29/2022 Renal cell carcinoma (HCC) [C64.9] 10/23/2022 Hyperglycemia [R73.9] 05/18/2023 Dyslipidemia [E78.5] 05/18/2023 Renal mass, right [N28.89] 05/18/2023 Gait disorder [R26.9] 08/21/2023 Tear of gluteus medius tendon [S76.019A] 08/21/2023 Encounter Status:Closed by VANDANA VALVERDE on 10/27/23 Normal [facility] 25(OH)D3 [facility] 2023 25-hydroxyvitamin D3 [Mass/Vol] 67.0 ng/mL Normal 31.0-80.0 [facility] Comment on above: Order Comment: Speci men Type: BLOOD SPECIMEN Ordering Facility: [facility] Address: [address] [place] [id number] Result Comment: Clas sification of 25 [place] Vitamin D status: Deficiency/Insufficiency: < or = 30 ng/ml. Sufficiency/Optimal Levels: 31-80 ng/mL Toxicity: > 100 ng/mL. Test performed by chemiluminescent immunoassay. Performed By: #### 2 132-9, 2276-4, 37694-4, 61564-4 #### [facility] CLIA [id number] [address] [place] [address] [place] CBC panel Auto (Bld)on 10-25 Erythrocyte distribution width (RBC) [Ratio] 13.2 % 11.5 - 15.0 % [facility] Hematocrit (Bld) [Volume fraction] 43.8 % 36.0 - 46.0 % [facility] Hemoglobin (Bld) [Mass/Vol] 14.0 g/dL 11.5 - 15.5 g/dL [facility] Interpretation and review of laboratory results Normal [facility] MCH (RBC) [Entitic mass] 28.6 pg 26.0 - 34.0 pg [facility] MCHC (RBC) [Mass/Vol] 32.0 g/dL 30.5 - 36.0 g/dL [facility] MCV (RBC) [Entitic vol] 89.6 fL 80.0 - 100.0 fL [facility] Nucleated RBC (Bld) [#/Vol] NINF [facility] Platelet mean volume (Bld) [Entitic vol] 11.4 fL 9.0 - 12.7 fL [facility] Platelets (Bld) [#/Vol] 229 10*3/uL [facility] RBC (Bld) [#/Vol] 4.89 10*6/uL 3.90 - 5.2 0 m/uL [facility] WBC (Bld) [#/Vol] 4.97 10*3/uL [facility] Erythrocyte distribution width (RBC) [Ratio] 13.2 % Normal 11.5-15.0 [facility] Comment on above: Order Comment: Mustapha christian Type: BLOOD SPECIMEN Ordering Facility: [facility] Address: [address] [place] [address] Performed By: #### 2 132-9, 2276-4, 06189-2, 26898-3 #### [facility] CLIA [id number] [address] [place] [address] OF [facility] Hematocrit (Bld) [Volume fraction] 43.8 % Normal 36.0-46.0 [facility] Comment on above: Order Comment: Mustapha christian Type: BLOOD SPECIMEN Ordering Facility: [facility] Address: [address] [place] [address] Performed By: #### 2 132-9, 2276-4, 36818-7, 72468-1 #### [facility] CLIA [id number] [address] [place] [address] [place] Hemoglobin (Bld) [Mass/Vol] 14.0 g/dL Normal 11.5-15.5 [facility] Comment on above: Order Comment: Speci men Type: BLOOD SPECIMEN Ordering Facility: [facility] Address: [address] [place] [address] Performed By: #### 2 132-9, 2276-4, 74333-7, 73276-0 #### [facility] CLIA [id number] [address] [place] [address] [place] MCH (RBC) [Entitic mass] 28.6 pg Normal 26.0-34.0 [facility] Comment on above: Order Comment: Speci men Type: BLOOD SPECIMEN Ordering Facility: [facility] Address: [address] [place] [address] Performed By: #### 2 132-9, 2276-4, 47357-6, 56285-4 #### [facility] CLIA [id number] [address] [place] [address] [place] MCHC (RBC) [Mass/Vol] 32.0 g/dL Normal 30.5-36.0 [facility] Comment on above: Order Comment: Speci men Type: BLOOD SPECIMEN Ordering Facility: [facility] Address: [address] [place] [address] Performed By: #### 2 132-9, 2276-4, 60445-1, 48836-6 #### [facility] CLIA [id number] [address] [place] [address] [place] MCV (RBC) [Entitic vol] 89.6 fL Normal 80.0-100.0 [facility] Comment on above: Order Comment: Speci men Type: BLOOD SPECIMEN Ordering Facility: [facility] Address: [address] [place] [address] Performed By: #### 2 132-9, 2276-4, 82007-5, 23449-5 #### [facility] CLIA [id number] [address] [place] [address] [place] Nucleated RBC (Bld) [#/Vol] 10*3/uL Normal <0.01 [facility] Comment on above: Order Comment: Speci men Type: BLOOD SPECIMEN Ordering Facility: [facility] Address: [address] [place] [address] Performed By: #### 2 132-9, 2276-4, 53140-9, 03915-6 #### [facility] CLIA [id number] [address] [place] [address] [place] Platelet mean volume (Bld) [Entitic vol] 11.4 fL Normal 9.0-12.7 [facility] Comment on above: Order Comment: Speci men Type: BLOOD SPECIMEN Ordering Facility: [facility] Address: [address] [place] [address] Performed By: #### 2 132-9, 2276-4, 73788-5, 09521-7 #### [facility] CLIA [id number] [address] [place] [address] [place] Platelets (Bld) [#/Vol] 229 10*3/uL Normal 150-400 [facility] Comment on above: Order Comment: Speci men Type: BLOOD SPECIMEN Ordering Facility: [facility] Address: [address] [place] [address] Performed By: #### 2 132-9, 2276-4, 57032-9, 02163-2 #### [facility] CLIA [id number] [address] [place] [address] [place] RBC (Bld) [#/Vol] 4.89 10*6/uL Normal 3.90-5.20 [facility] Comment on above: Order Comment: Speci men Type: BLOOD SPECIMEN Ordering Facility: [facility] Address: [address] [place] [address] Performed By: #### 2 132-9, 2276-4, 87463-8, 73061-1 #### [facility] CLIA [id number] [address] [place] [address] [place] WBC (Bld) [#/Vol] 4.97 10*3/uL Normal 3.70-11.00 [facility] Comment on above: Order Comment: Speci men Type: BLOOD SPECIMEN Ordering Facility: [facility] Address: [address] [place] [address] Performed By: #### 2 132-9, 2276-4, 16140-1, 69247-6 #### [facility] CLIA [id number] [address] [place] [address] OF [place] CNOVon 10-26-2023 CNOV Office Visit ([facility] ) LETHA CASTRO ([id number]) 1940 F Date Time Provider Department 10/26/23 9:00 AM [facility] During your visit today, we recorded the following information about you: Pulse Respiration Blood pressure Weight 74/minute 16/minute 132/80 67.3 kg Rick Leong APRN.[employer] 10/26/2023 11:17 AM Signed Chief Complaint Patient presents with: Dizziness: X 3 weeks, worse with position changes HPI Letha Ashley Gloria is a 83 year old female who presents here today for Above Complaints.. Dizziness with position changes mostly-for about 3 weeks. Worse during the night when she gets up to urinate (about every 2 hours during the night) and in the mornings when she gets up. Is not room spinning. Lasts about 1-2 minutes. Vchwk-bbtyob-xucc gets about 32oz on a daily basis. Does work outside in her garden a lot so has been doing a lot of sweating. Once she is up for a while in the mornings doesn't seem to bother her. Has not had any falls. Has hx low iron. Denies obvious rectal or other bleeding. Past medical history, appointments, medications, allergies reviewed. Previous Medical History PAST MEDICAL HISTORY No date: Arthritis No date: Essential tremor No date: History of transfusion No date: Hyperlipidemia No date: Iron deficiency No date: Overweight (BMI 25.0-29.9) No date: PMH - PAST MEDICAL HISTORY OF Comment: arthritis No date: PMH - PAST MEDICAL HISTORY OF Comment: varicose veins No date: PMH - PAST MEDICAL HISTORY OF Comment: mitral regurg 10/23/2022: Renal cell carcinoma (HCC) Previous Surgical History PAST SURGICAL HISTORY No date: APPENDECTOMY No date: APPENDECTOMY HX 01/28/2014: ARTHRP ACETBLR/PROX FEM PROSTC AGRFT/ALGRFT Comment: left arthroplasty 02/12/2009: ARTHRP KLARISSA CONDYLEANDPLATU MEDIALANDLAT COMPARTMENTS Comment: Knee replacement, total left 2009: ARTHRP KNE CONDYLEANDPLATU MEDIALANDLAT COMPARTMENTS Comment: Right knee 06/24/2021: COLONOSCOPY Comment: repeat in 10 years 2005: COLONOSCOPY FLX DX W/COLLJ SPEC WHEN PFRMD Comment: Colonoscopy 07/17/2014: COLONOSCOPY FLX DX W/COLLJ SPEC WHEN PFRMD Comment: Colonoscopy 06/24/2021: EGD W/O [facility] SPEC VARICIES INJ 07/17/2014: ESOPHAGOGASTRODUODENOSCOPY TRANSORAL DIAGNOSTIC Comment: EGD No date: JOINT REPLACEMENT HX 2005: PAST SURGICAL HISTORY OF; Bilateral Comment: VEIN STRIPPING 1999: PAST SURGICAL HISTORY OF Comment: heart cath 03/2020: PAST SURGICAL HISTORY OF Comment: colonoscopy and EGD No date: SKIN BIOPSY HX No date: VASCULAR SURGERY PROCEDURE Family History FAMILY HISTORY Problem Relation Age of Onset Lipids Mother other (parkinsons) Mother Prostate Cancer Father other (Tremors) Father Lipids Sister Coronary Artery Disease Sister Cabg x3 other (Brain bleed) Sister Lipids Sister Breast Cancer Sister Lipids Brother Coronary Artery Disease Brother CABG other (tremors) Brother Anesthesia Problems No Family History Patient Allergies ALLERGIES Allergen Reactions Latex, Natural Rubb* Rash, Intolerance, Itching Cephalexin Chlorhexidine Rash Diclofenac Iodine Rash During heart cath contrast dye Levaquin [Levofloxa* Rash Penicillins Rash Current Medications Current Outpatient Medications on File Prior to Visit Medication Sig pantoprazole DR (PROTONIX) 40 mg tablet Take 1 tablet by mouth once daily. acetaminophen (TYLENOL) 325 mg tablet Take 2 tablets by mouth every 6 hours as needed for pain. calcium carbonate (CALTRATE) 600 mg calcium (1,500 mg) tab Take by mouth. ferrous sulfate (IRON, FERROUS SULFATE,) 325 mg (65 mg iron) tablet Take 1 tablet by mouth twice daily with meals. cholecalciferol, vitamin D3, (VITAMIN D3 ORAL) Take by mouth once daily. predniSONE (DELTASONE) 50 mg Take 1 tablet by mouth at 13 hours, 7 hours, and [address] dye infusion. (Patient not taking: Reported on 10/26/2023) No current facility-administered medications on file prior to visit. Social History Social History Tobacco Use Smoking status: Never Smokeless tobacco: Never Vaping Use Vaping Use: Never used Substance Use Topics Alcohol use: No Drug use: No Review of Symptoms REVIEW OF SYSTEMS See HPI, otherwise negative EXAM: BP 132/80 (BP Site: Left Arm, BP Position: Sitting, BP Cuff Size: Regular Adult) Pulse 74 Resp 16 Wt 67.3 kg (148 lb 6.4 oz) SpO2 97% BMI 27.14 kg/m? General Appearance: Well appearing, alert, in no acute distress, well-hydrated, well nourished.. Lungs: Lungs clear to auscultation. No wheezing, rhonchi, rales.. Heart: RRR without murmur, gallop, or rubs. No ectopy. Psychiatric: pleasant, cooperative. Health Maintenance List RSV Vaccine(1 - 1-dose 60+ series) Never done DTaP,Tdap,Td Vaccine(1 - Tdap) due on 05/19/2007 Pneumococcal Vaccine: 65+(2 of 2 - PCV) due on (more content not included)... Normal [facility] Comprehensive metabolic 2000 panelon 10-26-2023 Albumin [Mass/Vol] 4.1 g/dL Normal 3.9-4.9 [facility] Comment on above: Order Comment: Speci men Type: BLOOD SPECIMEN Ordering Facility: [facility] Address: [address] [place] [address] Performed By: #### 2 132-9, 2276-4, 71598-7, 08455-4 #### [facility] CLIA [id number] [address] [place] [address] [place] ALP [Catalytic activity/Vol] 134 U/L High 34-123 [facility] Comment on above: Order Comment: Speci men Type: BLOOD SPECIMEN Ordering Facility: [facility] Address: [address] [place] [address] Performed By: #### 2 132-9, 2276-4, 15985-2, 92643-1 #### [facility] CLIA [id number] [address] [place] [address] [place] ALT [Catalytic activity/Vol] 16 U/L Normal 7-38 [facility] Comment on above: Order Comment: Speci men Type: BLOOD SPECIMEN Ordering Facility: [facility] Address: [address] [place] [address] Performed By: #### 2 132-9, 6-4, 56272-8, 49052-9 #### [facility] CLIA [id number] [address] [place] [address] [place] Anion gap [Moles/Vol] 11 mmol/L Normal 8-15 [facility] Comment on above: Order Comment: Speci men Type: BLOOD SPECIMEN Ordering Facility: [facility] Address: [address] [place] [address] Performed By: #### 2 132-9, 2276-4, 90661-9, 89377-8 #### [facility] CLIA [id number] [address] [place] [address] [place] AST [Catalytic activity/Vol] 25 U/L Normal 13-35 [facility] Comment on above: Order Comment: Speci men Type: BLOOD SPECIMEN Ordering Facility: [facility] Address: [address] [place] [address] Performed By: #### 2 132-9, 2276-4, 68439-7, 50650-6 #### [facility] CLIA [id number] [address] [place] [address] [place] Bilirubin [Mass/Vol] 0.7 mg/dL Normal 0.2-1.3 [facility] Comment on above: Order Comment: Speci men Type: BLOOD SPECIMEN Ordering Facility: [facility] Address: [address] [place] [address] Performed By: #### 2 132-9, 2276-4, 41253-4, 47826-6 #### [facility] CLIA [id number] [address] [place] [address] [place] Calcium [Mass/Vol] 9.7 mg/dL Normal 8.5-10.2 [facility] Comment on above: Order Comment: Speci men Type: BLOOD SPECIMEN Ordering Facility: [facility] Address: [address] [place] [address] Performed By: #### 2 132-9, 2276-4, 43275-3, 66375-4 #### [facility] CLIA [id number] [address] [place] [address] [place] Chloride [Moles/Vol] 104 mmol/L Normal 98-107 [facility] Comment on above: Order Comment: Speci men Type: BLOOD SPECIMEN Ordering Facility: [facility] Address: [address] [place] [address] Performed By: #### 2 132-9, 2276-4, 69861-8, 68330-4 #### [facility] CLIA [id number] [address] [place] [address] [place] CO2 [Moles/Vol] 26 mmol/L Normal 22-30 [facility] Comment on above: Order Comment: Speci men Type: BLOOD SPECIMEN Ordering Facility: [facility] Address: [address] [place] [address] Performed By: #### 2 132-9, 2276-4, 56669-5, 10776-9 #### [facility] CLIA [id number] [address] [place] [address] [place] Creatinine [Mass/Vol] 0.80 mg/dL Normal 0.58-0.96 [facility] Comment on above: Order Comment: Mustapha men Type: BLOOD SPECIMEN Ordering Facility: [facility] Address: [address] [place] [address] Performed By: #### 2 132-9, 2276-4, 16865-6, 63855-2 #### [facility] CLIA [id number] [address] [place] [address] [place] Creatinine and Glomerular filtration rate.predicted panel (S/P/Bld) 74 mL/min/1.73m??? Normal >=60 [facility] Comment on above: Order Comment: Mustapha christian Type: BLOOD SPECIMEN Ordering Facility: [facility] Address: [address] [place] [address] Result Comment: Debby mated Glomerular Filtration Rate (eGFR) is calculated using the 2020 CKD-EPI creatinine equation. This equation utilizes serum creatinine, sex, and age as parameters. The creatinine assay has traceable calibration to isotope dilution-mass spectrometry. Refer to KDIGO guidelines for clinical interpretation. In patients with unstable renal function, e.g. those with acute kidney injury, the eGFR may not accurately reflect actual GFR. Performed By: #### 2 132-9, 2276-4, 80428-9, 00373-3 #### [facility] CLIA [id number] [address] [place] [address] [place] Glucose [Mass/Vol] 100 mg/dL High 74-99 [facility] Comment on above: Order Comment: Mustapha christian Type: BLOOD SPECIMEN Ordering Facility: [facility] Address: [address] [place] [address] Result Comment: The [place] [employer] (ADA) provides guidance for cutoff values for fasting glucose and random glucose. The ADA defines fasting as no caloric intake for at least 8 hours. Fasting plasma glucose results between 100 to 125 mg/dL indicate increased risk for diabetes (prediabetes). Fasting plasma glucose results greater than or equal to 126 mg/dL meet the criteria for diagnosis of diabetes. In the absence of unequivocal hyperglycemia, results should be confirmed by repeat testing. In a patient with classic symptoms of hyperglycemia or hyperglycemic crisis, random plasma glucose results greater than or equal to 200 mg/dL meet the criteria for diagnosis of diabetes. Reference: Standards of Medical Care in Diabetes 2016, [place] [employer]. Diabetes Care. 2016.39(Suppl 1). Performed By: #### 2 132-9, 2276-4, 80278-7, 83766-5 #### [facility] CLIA [id number] [address] [place] [address] [place] Potassium [Moles/Vol] 4.0 mmol/L Normal 3.7-5.1 [facility] Comment on above: Order Comment: Mustapha christian Type: BLOOD SPECIMEN Ordering Facility: [facility] Address: [address] [place] [address] Performed By: #### 2 132-9, 2276-4, 86870-5, 87143-7 #### [facility] CLIA [id number] [address] [place] [address] [place] Protein [Mass/Vol] 7.1 g/dL Normal 6.3-8.0 [facility] Comment on above: Order Comment: Mustapha christian Type: BLOOD SPECIMEN Ordering Facility: [facility] Address: [address] [place] [address] Performed By: #### 2 132-9, 2276-4, 90414-0, 84963-3 #### [facility] CLIA [id number] [address] [place] [address] [place] Sodium [Moles/Vol] 141 mmol/L Normal 136-144 [facility] Comment on above: Order Comment: Mustapha christian Type: BLOOD SPECIMEN Ordering Facility: [facility] Address: [address] [place], [place] [address] Performed By: #### 2 132-9, 2276-4, 95717-2, 03700-5 #### [facility] CLIA [id number] [address] [place] [address] [place] Urea nitrogen [Mass/Vol] 23 mg/dL High 7-21 [facility] Comment on above: Order Comment: Speci men Type: BLOOD SPECIMEN Ordering Facility: [facility] Address: [address] [place] [address] Performed By: #### 2 132-9, 2276-4, 37064-5, 88348-4 #### [facility] CLIA [id number] [address] [place] [address] [place] Ferritin SerPl-mCncon 2023 Ferritin [Mass/Vol] 149.0 ng/mL Normal 14.7-205.1 [facility] Comment on above: Order Comment: Speci men Type: BLOOD SPECIMEN Ordering Facility: [facility] Address: [address] [place] [address] Performed By: #### 2 132-9, 2276-4, 04769-7, 68697-8 #### [facility] CLIA [id number] [address] [place] [address] [place] Iron and Iron binding capaci ty panelon 10-26-2023 Iron [Mass/Vol] 72 ug/dL Normal 41-186 [facility] Comment on above: Order Comment: Speci men Type: BLOOD SPECIMEN Ordering Facility: [facility] Address: [address] [place] [address] Performed By: #### 2 132-9, 2276-4, 63233-6, 10769-4 #### [facility] CLIA [id number] [address] [place] [address] [place] Iron binding capacity [Mass/Vol] 303 ug/dL Normal 232-386 [facility] Comment on above: Order Comment: Speci men Type: BLOOD SPECIMEN Ordering Facility: [facility] Address: [address] [place] [address] Performed By: #### 2 132-9, 2276-4, 24963-7, 03487-7 #### [facility] CLIA [id number] [address] [place] [address] [place] Iron/TIBC [Molar ratio] 23.8 % Normal 15.0-57.0 [facility] Comment on above: Order Comment: Speci men Type: BLOOD SPECIMEN Ordering Facility: [facility] Address: [address] [place] [address] Performed By: #### 2 132-9, 6-4, 10529-3, 93800-5 #### [facility] CLIA [id number] [address] [place] [address] [place] Vit B12 [facility] 0815-2 024 Cobalamin (Vitamin B12) [Mass/Vol] 666 pg/mL Normal 232-1245 [facility] Comment on above: Order Comment: Speci men Type: BLOOD SPECIMEN Ordering Facility: [facility] Address: [address] [place] [address] Performed By: #### 2 132-9, 6-4, 22634-3, 69530-4 #### [facility] CLIA [id number] [address] [place] [address] [place] URINALYSIS, REFLEX MICROSCOP ICon 07-27-2023 Bilirubin Ql (U) Negative Negative [facility] Clarity (Unsp spec) Clear Clear [facility] Color (U) Light Yellow Yellow [facility] Epithelial cells LM.HPF (Urine sed) [#/Area] Few /HPF [facility] Glucose Test strip (U) [Mass/Vol] Negative Trace, Negative [facility] Hemoglobin Ql (U) 1+ Abnormal Negative, Trace [facility] Interpretation and review of laboratory results Abnormal [facility] Ketones Ql (U) Negative Negative, Trace [facility] Leukocyte esterase Test strip Ql (U) 25 Luis/uL Negative, 25 Luis/uL [facility] Nitrite Ql (U) Negative Negative [facility] pH (U) 5.0 [pH] 5.0 - 8.0 [facility] Protein (U) [Mass/Vol] Negative Trace, Negative [facility] RBC LM.HPF (Urine sed) [#/Area] 3-5 /HPF Abnormal 0-3 /HPF [facility] Specific gravity (U) [Rel density] 1.016 1.005 - 1.030 [facility] Urobilinogen Ql (U) Normal Normal [facility] WBC LM.HPF (Urine sed) [#/Area] 0-5 /HPF 0-5 /HPF [facility] CREATININE BLDOrdered By: Aaron Fregoso on 07-12-2023 Creatinine [Mass/Vol] 0.69 mg/dL 0.58 - 0.96 mg/dL [facility] GFR/1.73 sq M.predicted among non-blacks MDRD (S/P/Bld) [Vol rate/Area] 88 mL/min/{1.73_m2} - PINF [facility] Comment on above: Estimated Glomerular Filtration Rate (eGFR) is calculated using the 2020 CKD-EPI creatinine equation. This equation utilizes serum creatinine, sex, and age as parameters. The creatinine assay has traceable calibration to isotope dilution-mass spectrometry. Refer to KDIGO guidelines for clinical interpretation. In patients with unstable renal function, e.g. those with acute kidney injury, the eGFR may not accurately reflect actual GFR. Interpretation and review of laboratory results Normal [facility] CT KIDNEY WO/W IVCONon 11-04 [facility] CBC W Auto Differential pane l (Bld)on 10-21-2022 Basophils (Bld) [#/Vol] 0.06 10*3/uL <0.11 k/uL [facility] Basophils/100 WBC (Bld) 1.2 % [facility] Differential cell count method Nom (Bld) Auto [facility] Eosinophils (Bld) [#/Vol] 0.19 10*3/uL <0.46 k/uL [facility] Eosinophils/100 WBC (Bld) 3.9 % [facility] Erythrocyte distribution width (RBC) [Ratio] 13.7 % 11.5 - 15.0 % [facility] Hematocrit (Bld) [Volume fraction] 44.9 % 36.0 - 46.0 % [facility] Hemoglobin (Bld) [Mass/Vol] 13.7 g/dL 11.5 - 15.5 g/dL [facility] Immature granulocytes (Bld) [#/Vol] <0.10 k/uL [facility] Immature granulocytes/100 WBC (Bld) 0.4 % [facility] Lymphocytes (Bld) [#/Vol] 1.29 10*3/uL 1.00 - 4.00 k/uL [facility] Lymphocytes/100 WBC (Bld) 26.5 % [facility] MCH (RBC) [Entitic mass] 27.1 pg 26.0 - 34.0 pg [facility] MCHC (RBC) [Mass/Vol] 30.5 g/dL 30.5 - 36.0 g/dL [facility] MCV (RBC) [Entitic vol] 88.9 fL 80.0 - 100.0 fL [facility] Monocytes (Bld) [#/Vol] 0.79 10*3/uL <0.87 k/uL [facility] Monocytes/100 WBC (Bld) 16.2 % [facility] Neutrophils (Bld) [#/Vol] 2.52 10*3/uL 1.45 - 7.50 k/uL [facility] Neutrophils/100 WBC (Bld) 51.8 % [facility] Nucleated RBC (Bld) [#/Vol] <0.01 k/uL [facility] Nucleated RBC/100 WBC (Bld) [Ratio] 0.0 /100 WBC [facility] Platelet mean volume (Bld) [Entitic vol] 11.7 fL 9.0 - 12.7 fL [facility] Platelets (Bld) [#/Vol] 210 10*3/uL 150 - 400 k/uL [facility] RBC (Bld) [#/Vol] 5.05 10*6/uL 3.90 - 5.2 0 m/uL [facility] WBC (Bld) [#/Vol] 4.87 10*3/uL 3.70 - 11. 00 k/uL [facility] CBC W Auto Differential pane l (Bld)on 09-27-2022 Basophils (Bld) [#/Vol] 0.03 10*3/uL <0.11 k/uL [facility] Basophils/100 WBC (Bld) 0.3 % [facility] Differential cell count method Nom (Bld) Auto [facility] Eosinophils (Bld) [#/Vol] 0.03 10*3/uL <0.46 k/uL [facility] Eosinophils/100 WBC (Bld) 0.3 % [facility] Erythrocyte distribution width (RBC) [Ratio] 13.6 % 11.5 - 15.0 % [facility] Hematocrit (Bld) [Volume fraction] 41.7 % 36.0 - 46.0 % [facility] Hemoglobin (Bld) [Mass/Vol] 13.2 g/dL 11.5 - 15.5 g/dL [facility] Immature granulocytes (Bld) [#/Vol] 0.08 10*3/uL <0.10 k/uL [facility] Immature granulocytes/100 WBC (Bld) 0.8 % [facility] Lymphocytes (Bld) [#/Vol] 1.70 10*3/uL 1.00 - 4.00 k/uL [facility] Lymphocytes/100 WBC (Bld) 16.4 % [facility] MCH (RBC) [Entitic mass] 27.3 pg 26.0 - 34.0 pg [facility] MCHC (RBC) [Mass/Vol] 31.7 g/dL 30.5 - 36.0 g/dL [facility] MCV (RBC) [Entitic vol] 86.2 fL 80.0 - 100.0 fL [facility] Monocytes (Bld) [#/Vol] 1.09 10*3/uL High <0.87 k/uL [facility] Monocytes/100 WBC (Bld) 10.5 % [facility] Neutrophils (Bld) [#/Vol] 7.44 10*3/uL 1.45 - 7.50 k/uL [facility] Neutrophils/100 WBC (Bld) 71.7 % [facility] Nucleated RBC (Bld) [#/Vol] <0.01 k/uL [facility] Nucleated RBC/100 WBC (Bld) [Ratio] 0.0 /100 WBC [facility] Platelet mean volume (Bld) [Entitic vol] 10.5 fL 9.0 - 12.7 fL [facility] Platelets (Bld) [#/Vol] 268 10*3/uL 150 - 400 k/uL [facility] RBC (Bld) [#/Vol] 4.84 10*6/uL 3.90 - 5.2 0 m/uL [facility] WBC (Bld) [#/Vol] 10.37 10*3/uL 3.70 - 11 .00 k/uL [facility] CBC W Ordered Manual Differe ntial panel (Bld)on 09-27-2022 Basophils (Bld) [#/Vol] 0.03 10*3/uL <0.11 k/uL [facility] Basophils/100 WBC (Bld) 0.3 % [facility] Differential cell count method Nom (Bld) Auto [facility] Eosinophils (Bld) [#/Vol] 0.04 10*3/uL <0.46 k/uL [facility] Eosinophils/100 WBC (Bld) 0.4 % [facility] Erythrocyte distribution width (RBC) [Ratio] 13.6 % 11.5 - 15.0 % [facility] Hematocrit (Bld) [Volume fraction] 41.2 % 36.0 - 46.0 % [facility] Hemoglobin (Bld) [Mass/Vol] 13.0 g/dL 11.5 - 15.5 g/dL [facility] Immature granulocytes (Bld) [#/Vol] 0.07 10*3/uL <0.10 k/uL [facility] Immature granulocytes/100 WBC (Bld) 0.7 % [facility] Lymphocytes (Bld) [#/Vol] 1.72 10*3/uL 1.00 - 4.00 k/uL [facility] Lymphocytes/100 WBC (Bld) 16.7 % [facility] MCH (RBC) [Entitic mass] 27.3 pg 26.0 - 34.0 pg [facility] MCHC (RBC) [Mass/Vol] 31.6 g/dL 30.5 - 36.0 g/dL [facility] MCV (RBC) [Entitic vol] 86.4 fL 80.0 - 100.0 fL [facility] Monocytes (Bld) [#/Vol] 1.10 10*3/uL High <0.87 k/uL [facility] Monocytes/100 WBC (Bld) 10.6 % [facility] Neutrophils (Bld) [#/Vol] 7.37 10*3/uL 1.45 - 7.50 k/uL [facility] Neutrophils/100 WBC (Bld) 71.3 % [facility] Nucleated RBC (Bld) [#/Vol] <0.01 k/uL [facility] Nucleated RBC/100 WBC (Bld) [Ratio] 0.0 /100 WBC [facility] Platelet mean volume (Bld) [Entitic vol] 11.0 fL 9.0 - 12.7 fL [facility] Platelets (Bld) [#/Vol] 255 10*3/uL 150 - 400 k/uL [facility] RBC (Bld) [#/Vol] 4.77 10*6/uL 3.90 - 5.2 0 m/uL [facility] WBC (Bld) [#/Vol] 10.33 10*3/uL 3.70 - 11 .00 k/uL [facility] CT ABD/PEL W IVCONon 09-26-[address] ABD/PEL W IVCON * * *Final Report* * * DATE OF EXAM: Sep 26 2022 12:59PM [facility] 0530 - CT ABD/PEL W IVCON / PROCEDURE REASON: Leukocytosis, unspecified type * * * * Physician Interpretation * * * * EXAMINATION: CT ABDOMEN AND PELVIS WITH IV CONTRAST CLINICAL HISTORY: Abdominal pain. Rectal bleeding. Elevated white blood cell count. TECHNIQUE: CT of the abdomen and pelvis was performed using standard technique, scanning from just above the dome of the diaphragm to the symphysis pubis. MQ: CTAP_3 Contrast: IV: 100 ml of Omnipaque 300 Oral: 500 ml of Omni 300 10-25ml diluted with water CT Radiation dose: Integrated Dose-length product (DLP) for this visit = 471.54 mGy*cm. CT Dose Reduction Employed: Automated exposure control (AEC) COMPARISON: 05/17/2022 RESULT: Liver: No mass. Biliary: No bile duct dilation. Partially contracted gallbladder with multiple stones. No wall thickening or pericholecystic fluid. Spleen: No mass. No splenomegaly. Pancreas: 1.5 cm fluid density structure superior vena cava pancreas on 2:24. Not clearly seen on prior exam. Adrenals: No mass. Kidneys: Right: Patient has had partial nephrectomy of solid mass lesion noted in the midpole. Ill-defined fluid density is noted in the resection bed. 1 mm stone noted within a calyx anterior lower pole with adjacent scarring. No hydronephrosis. Left: Mild dilatation intrarenal collecting system. Stable compared to prior exam. Multiple hypodense nodules scattered through out the renal parenchyma. Most consistent with small cysts. GI tract: Moderate size sliding-type hiatal hernia No dilated or thick-walled bowel. Diverticulosis of the distal descending and sigmoid colon without radiographic evidence of acute diverticulitis. The appendix appears absent. Lymph nodes: No abdominal or pelvic lymphadenopathy. Mesentery/Peritoneum: No ascites or mass. Retroperitoneum: Small fluid density structure noted adjacent to the aortic bifurcation of the left side measuring 2.2 cm in diameter on 2:58. Stable compared to prior exam. 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 Vasculature: Abdominal aorta is not aneurysmally dilated. The celiac artery, SMA, renal arteries, and YULIYA are patent. Portal vein, hepatic veins, splenic vein, and SMV are patent. Pelvis: No mass, ascites or fluid collection. Pelvic floor laxity. Fatty atrophy involving right gluteal muscles. Chronic finding. Bones/Soft Tissues: Multilevel degenerative disc changes noted in the lumbar spine. Left hip prosthesis. Lower thorax: Lung minimal probable atelectasis at the left lung base otherwise lung bases are clear. Bases are clear. Social Science Professor (topogram) images: No significant additional findings. IMPRESSION: No definite acute intra-abdominal or pelvic findings. Status post partial nephrectomy of solid mass midpole right kidney with minimal adjacent nonloculated fluid most likely postoperative in nature. Contracted gallbladder with multiple stones. Fluid density structure in the neck of the pancreas. Increased in size since 05/17/2022 where no obvious lesion was noted. Etiology is unclear. It may represent a small cystic neoplasm. It should undergo further characterization with pre and postcontrast MRI. Moderate sliding-type hiatal hernia. Diverticulosis of the sigmoid colon. Survey Interviewer: SAAD Transcribe Date/Time: Sep 26 2022 1:14P Dictated by : SHIELA CARROLL MD This examination was interpreted and the report reviewed and electronically signed by: SHIELA CARROLL MD on Sep 26 2022 1:25PM EST [id number] Normal [facility] - Urinalysison Epithelial cells LM.HPF (Urine sed) [#/Area] Few Abnormal None Seen /HPF [facility] URINALYSIS, REFLEX MICROSCOP ICon 06-29-2022 Bilirubin Ql (U) Negative Negative [facility] Clarity (Unsp spec) Clear Clear [facility] Color (U) Light Yellow Yellow [facility] Glucose Test strip (U) [Mass/Vol] Negative Trace, Negative [facility] Hemoglobin Ql (U) 2+ Abnormal Negative, Trace [facility] Hyaline casts (Urine sed) [#/Area] 1-3 /LPF Abnormal 0 /LPF [facility] Ketones Ql (U) Negative Trace, Negative [facility] Leukocyte esterase Test strip Ql (U) 75 Luis/uL Abnormal Negative, 25 Luis/uL [facility] Nitrite Ql (U) Negative Negative [facility] pH (U) 5.5 [pH] 5.0 - 8.0 [facility] Protein (U) [Mass/Vol] Negative Trace, Negative [facility] RBC LM.HPF (Urine sed) [#/Area] 0-3 /HPF 0-3 /HPF [facility] Specific gravity (U) [Rel density] 1.018 1.005 - 1.030 [facility] Urobilinogen Ql (U) Negative Negative [facility] WBC LM.HPF (Urine sed) [#/Area] 0-5 /HPF 0-5 /HPF [facility] NUC 3 PHASE LIMITED BONE SCA Non 06-25-2022 NUC 3 PHASE LIMITED BONE SCAN THREE-PHASE RADIONUCLIDE BONE SCAN, BILATERAL KNEES: COMPARISON: Plain radiographs performed 06/09/2022. HISTORY: Bilateral total knee arthroplasty. Pain. Elevated alkaline phosphatase. TRACER DOSE: 26.7 mCi of technetium-99m MDP. Planar blood flow, blood pool, and delayed imaging was performed. FINDINGS: There is normal and symmetric distribution of tracer on the blood flow and blood pool phases of imaging. On delayed imaging, there is photopenia at the total knee arthroplasties bilaterally. Mild tracer uptake along the arthroplasty margins is considered a typical postoperative finding. No pathologic tracer uptake is seen. IMPRESSION: Total knee arthroplasty bilaterally. There is no definite scintigraphic evidence to suggest complication of hardware placement. Normal [facility] MRI HIP LEFT WITHOUT CONTRAS Ton 06-24-2022 MRI HIP LEFT WITHOUT CONTRAST EXAM: MRI HIP LEFT WITHOUT CONTRAST REASON FOR EXAM: Left hip pain, status post arthroplasty. TECHNIQUE: Multiplanar, multisequence imaging of the left hip was performed without contrast COMPARISON: Plain radiograph 06/09/2022. FINDINGS: On small [id number] imaging of the left hip, there is susceptibility artifact consistent with left hip arthroplasty. The visualized bone marrow signal is without fracture or osteonecrosis. No joint effusion identified. No abnormal fluid collection identified. The gluteus minimus tendon insertion at the greater trochanter is thin and attenuated suggesting high-grade partial tearing is not complete tear. There is atrophy of the gluteus minimus muscle, however, this is not significantly different compared to the contralateral side. There is mild atrophy of the gluteus minimus muscle. There is tendinosis and intermediate to high-grade partial tearing involving the anterior fibers of the gluteus minimus medius tendon insertion. The posterior fibers are intact. Tendinosis and low-grade partial tearing of the left common hamstring origin. There may be mild trochanteric bursitis on the left. The remaining visualized left hip regional musculature is without discrete muscle strain or tendon tear. On large [id number] imaging, at least moderate degenerative disc disease the visualized lower lumbar spine, incompletely characterized. The sacroiliac joints are congruent with mild to moderate osteoarthritis with mild subchondral marrow edema. The pubic symphysis is congruent. The right femur is well seated within the acetabulum without fracture or AVN. Moderate osteoarthritis of the right hip. There is high-grade tendinosis and high-grade partial tearing of the right gluteus medius insertion. Tendinosis and probable complete tear of the gluteus minimus insertion on the right. There is atrophy of the gluteus minimus and medius tendons on the right. Limited evaluation of the pelvic viscera is without acute or suspicious abnormality. Small uterine fibroids are noted. Colonic diverticulosis is present. IMPRESSION: 1. Postsurgical changes from left hip arthroplasty. No fracture identified. 2. 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 Tendinosis and intermediate grade partial tearing involving the anterior fibers of the left gluteus medius insertion at the greater trochanter with mild bursitis. 3. Moderate to severe degenerative disc disease the visualized lower lumbar spine, incompletely characterized. 4. Moderate right hip osteoarthritis without fracture or AVN. 5. Tendinosis and high-grade partial tearing of the right gluteus minimus and medius tendons with associated atrophy. 6. Moderate bilateral sacroiliac osteoarthritis. Normal [facility] US ABDOMEN COMPLETEon 2022 [facility] URINALYSIS, REFLEX MICROSCOP ICon 06-02-2022 Bilirubin Ql (U) Negative Negative [facility] Clarity (Unsp spec) Clear Clear [facility] Color (U) Light Yellow Yellow [facility] Epithelial cells LM.HPF (Urine sed) [#/Area] Few [facility] Glucose Test strip (U) [Mass/Vol] Negative Trace, Negative [facility] Hemoglobin Ql (U) 1+ Abnormal Negative, Trace [facility] Ketones Ql (U) Negative Negative, Trace [facility] Leukocyte esterase Test strip Ql (U) 75 Luis/uL Abnormal Negative, 25 Luis/uL [facility] Nitrite Ql (U) Negative Negative [facility] pH (U) 5.0 [pH] 5.0 - 8.0 [facility] Protein (U) [Mass/Vol] Negative Trace, Negative [facility] RBC LM.HPF (Urine sed) [#/Area] 3-5 /HPF Abnormal 0-3 /HPF [facility] Specific gravity (U) [Rel density] 1.014 1.005 - 1.030 [facility] Urobilinogen Ql (U) Negative Negative [facility] WBC LM.HPF (Urine sed) [#/Area] 0-5 /HPF 0-5 /HPF [facility] XR Abdomen Supine and Uprigh ton 05-06-2022 IMPRESSION: No acute pathology. 4 mm calcification overlying the lower pole of the right kidney could represent a renal calculus. Survey Interviewer: [facility] Transcribe Date/Time: May 06 2022 7:54A Dictated by : KP PEPPER MD This examination was interpreted and the report reviewed and electronically signed by: KP PEPPER MD on May 06 2022 7:56AM [facility] DIVISION OF RADIOLOGY * * *Final Report* * * DATE OF EXAM: May 03 2022 12:15PM [id number] - XR ABDOMEN 1V SUPINE / PROCEDURE REASON: Right sided abdominal pain * * * * Physician Interpretation * * * * Indication: Right-sided abdominal pain Comparison: None 2 x-rays of the abdomen are obtained. There is a non-obstructed bowel gas pattern. Moderate fecal material in the colon. There is no hepatomegaly or splenomegaly. 4 mm calcification overlying the lower pole of the right kidney. There are no acute osseous abnormalities. Left hip prosthesis. DIVISION OF RADIOLOGY Provider, [facility] - 05/06/2022 * * *Final Report* * * DATE OF EXAM: May 03 2022 12:15PM [id number] - XR ABDOMEN 1V SUPINE / PROCEDURE REASON: Right sided abdominal pain * * * * Physician Interpretation * * * * Indication: Right-sided abdominal pain Comparison: None 2 x-rays of the abdomen are obtained. There is a non-obstructed bowel gas pattern. Moderate fecal material in the colon. There is no hepatomegaly or splenomegaly. 4 mm calcification overlying the lower pole of the right kidney. There are no acute osseous abnormalities. Left hip prosthesis. IMPRESSION IMPRESSION: No acute pathology. 4 mm calcification overlying the lower pole of the right kidney could represent a renal calculus. Survey Interviewer: SAAD Transcribe Date/Time: May 06 2022 7:54A Dictated by : KP PEPPER MD This examination was interpreted and the report reviewed and electronically signed by: KP PEPPER MD on May 06 2022 7:56AM EST [facility] XR Abdomen Supine and Uprigh tOrdered By: [facility] Provider on 05-06-2022 [facility] XR Abdomen Supine and Uprigh ton 05-03-2022 Radiology Study observation (narrative) [facility] MATT SCREENINGon 01-05-2022 [facility] Comprehensive metabolic 2000 panelon 07-14-2021 Albumin [Mass/Vol] 4.2 g/dL 3.9 - 4.9 g/dL [facility] ALP [Catalytic activity/Vol] 141 U/L High 34 - 123 U/L [facility] ALT [Catalytic activity/Vol] 19 U/L 7 - 38 U/L [facility] Anion gap [Moles/Vol] 12 mmol/L 9 - 18 mmol/L [facility] AST [Catalytic activity/Vol] 29 U/L 13 - 35 U/L [facility] Bilirubin [Mass/Vol] 0.4 mg/dL 0.2 - 1.3 mg/dL [facility] Calcium [Mass/Vol] 9.8 mg/dL 8.5 - 10.2 mg/dL [facility] Chloride [Moles/Vol] 102 mmol/L 97 - 105 mmol/L [facility] CO2 [Moles/Vol] 28 mmol/L 22 - 30 mmol/L [facility] Creatinine [Mass/Vol] 0.81 mg/dL 0.58 - 0.96 mg/dL [facility] Estimated Glomerular Filtration Rate 74 mL/min/1.73m >=60 mL/min/1.73m [facility] Glucose [Mass/Vol] 95 mg/dL 74 - 99 mg/dL [facility] Potassium [Moles/Vol] 4.2 mmol/L 3.7 - 5.1 mmol/L [facility] Protein [Mass/Vol] 7.6 g/dL 6.3 - 8.0 g/dL [facility] Sodium [Moles/Vol] 142 mmol/L 136 - 144 mmol/L [facility] Urea nitrogen [Mass/Vol] 21 mg/dL 7 - 21 mg/dL [facility] FERRITIN Don 07-14-2021 Ferritin [Mass/Vol] 40.1 ng/mL 14.7 - 205.1 ng/mL [facility] IRON + TIBCon 07-14-2021 Iron [Mass/Vol] 26 ug/dL Low 41 - 186 ug/dL [facility] Iron binding capacity [Mass/Vol] 368 ug/dL 232 - 386 ug/dL [facility] Iron/TIBC [Molar ratio] 7 % Low 15 - 57 % [facility] TSH BLDon 07-14-2021 TSH Qn 2.070 m[IU]/L 0.270 - 4.200 mIU/L [facility] CBC W Auto Differential pane l (Bld)on 07-13-2021 Abs Immature Gran <0.03 <0.10 k/uL [facility] Basophils (Bld) [#/Vol] 0.04 10*3/uL <0.11 k/uL [facility] Basophils/100 WBC (Bld) 0.7 % [facility] Differential cell count method Nom (Bld) Auto [facility] Eosinophils (Bld) [#/Vol] 0.16 10*3/uL <0.46 k/uL [facility] Eosinophils/100 WBC (Bld) 3.0 % [facility] Erythrocyte distribution width (RBC) [Ratio] 14.1 % 11.5 - 15.0 % [facility] Hematocrit (Bld) [Volume fraction] 45.0 % 36.0 - 46.0 % [facility] Hemoglobin (Bld) [Mass/Vol] 13.2 g/dL 11.5 - 15.5 g/dL [facility] Immature Gran % 0.4 % [facility] Lymphocytes (Bld) [#/Vol] 1.20 10*3/uL 1.00 - 4.00 k/uL [facility] Lymphocytes/100 WBC (Bld) 22.5 % [facility] MCH (RBC) [Entitic mass] 23.9 pg Low 26.0 - 34.0 pg [facility] MCHC (RBC) [Mass/Vol] 29.3 g/dL Low 30.5 - 36.0 g/dL [facility] MCV (RBC) [Entitic vol] 81.4 fL 80.0 - 100.0 fL [facility] Monocytes (Bld) [#/Vol] 0.73 10*3/uL <0.87 k/uL [facility] Monocytes/100 WBC (Bld) 13.7 % [facility] Neutrophils (Bld) [#/Vol] 3.19 10*3/uL 1.45 - 7.50 k/uL [facility] Neutrophils/100 WBC (Bld) 59.7 % [facility] Nucleated RBC (Bld) [#/Vol] 10*3/uL <0.01 k/uL [facility] Nucleated RBC/100 WBC (Bld) [Ratio] 0.0 /100 WBC [facility] Platelet mean volume (Bld) [Entitic vol] 11.0 fL 9.0 - 12.7 fL [facility] Platelets (Bld) [#/Vol] 249 10*3/uL 150 - 400 k/uL [facility] RBC (Bld) [#/Vol] 5.53 10*6/uL High 3.90 - 5.2 0 m/uL [facility] WBC (Bld) [#/Vol] 5.34 10*3/uL 3.70 - 11. 00 k/uL [facility] HGB A1Con 07-13-2021 Average glucose Estimated from glycated hemoglobin (Bld) [Mass/Vol] 111 mg/dL [facility] HbA1c (Bld) [Mass fraction] 5.5 % 4.3 - 5.6 % [facility] Urinalysis complete panel (U )on 07-13-2021 Bilirubin Ql (U) Negative Negative [facility] Clarity (Unsp spec) Clear Clear [facility] Color (U) Light Yellow Yellow [facility] Glucose Test strip (U) [Mass/Vol] Negative Negative [facility] Hemoglobin Ql (U) 1+ Abnormal Negative [facility] Ketones Ql (U) Negative Negative [facility] Leukocyte esterase Test strip Ql (U) Negative Negative [facility] Nitrite Ql (U) Negative Negative [facility] pH (U) 6.0 [pH] 5.0 - 8.0 [facility] Protein (U) [Mass/Vol] Negative Negative [facility] RBC LM.HPF (Urine sed) [#/Area] 0-3 /HPF 0-3 /HPF [facility] Specific gravity (U) [Rel density] 1.012 1.005 - 1.030 [facility] Urobilinogen Ql (U) Negative Negative [facility] WBC LM.HPF (Urine sed) [#/Area] 0-5 /HPF 0-5 /HPF [facility] CBC W Auto Differential pane l (Bld)on 05-13-2021 Abs Immature Gran 0.06 k/uL <0.10 k/uL [facility] Basophils (Bld) [#/Vol] 0.03 10*3/uL <0.11 k/uL [facility] Basophils/100 WBC (Bld) 0.5 % [facility] Differential cell count method Nom (Bld) Auto [facility] Eosinophils (Bld) [#/Vol] 0.11 10*3/uL <0.46 k/uL [facility] Eosinophils/100 WBC (Bld) 1.7 % [facility] Erythrocyte distribution width (RBC) [Ratio] 15.5 % High 11.5 - 15.0 % [facility] Hematocrit (Bld) [Volume fraction] 23.3 % Low 36.0 - 46.0 % [facility] Hemoglobin (Bld) [Mass/Vol] 6.9 g/dL Low 11.5 - 15.5 g/dL [facility] Immature Gran % 0.9 % [facility] Lymphocytes (Bld) [#/Vol] 1.44 10*3/uL 1.00 - 4.00 k/uL [facility] Lymphocytes/100 WBC (Bld) 22.5 % [facility] MCH (RBC) [Entitic mass] 27.5 pg 26.0 - 34.0 pg [facility] MCHC (RBC) [Mass/Vol] 29.6 g/dL Low 30.5 - 36.0 g/dL [facility] MCV (RBC) [Entitic vol] 92.8 fL 80.0 - 100.0 fL [facility] Monocytes (Bld) [#/Vol] 0.84 10*3/uL <0.87 k/uL [facility] Monocytes/100 WBC (Bld) 13.1 % [facility] Neutrophils (Bld) [#/Vol] 3.93 10*3/uL 1.45 - 7.50 k/uL [facility] Neutrophils/100 WBC (Bld) 61.3 % [facility] Nucleated RBC (Bld) [#/Vol] 10*3/uL <0.01 k/uL [facility] Nucleated RBC/100 WBC (Bld) [Ratio] 0.0 /100 WBC [facility] Platelet mean volume (Bld) [Entitic vol] 10.6 fL 9.0 - 12.7 fL [facility] Platelets (Bld) [#/Vol] 276 10*3/uL 150 - 400 k/uL [facility] RBC (Bld) [#/Vol] 2.51 10*6/uL Low 3.90 - 5.2 0 m/uL [facility] WBC (Bld) [#/Vol] 6.41 10*3/uL 3.70 - 11. 00 k/uL [facility] Comprehensive metabolic 2000 panelon 05-13-2021 Albumin [Mass/Vol] 3.4 g/dL Low 3.9 - 4.9 g/dL [facility] ALP [Catalytic activity/Vol] 82 U/L 34 - 123 U/L [facility] ALT [Catalytic activity/Vol] 22 U/L 7 - 38 U/L [facility] Anion gap [Moles/Vol] 10 mmol/L 9 - 18 mmol/L [facility] AST [Catalytic activity/Vol] 24 U/L 13 - 35 U/L [facility] Bilirubin [Mass/Vol] 0.3 mg/dL 0.2 - 1.3 mg/dL [facility] Calcium [Mass/Vol] 8.7 mg/dL 8.5 - 10.2 mg/dL [facility] Chloride [Moles/Vol] 109 mmol/L High 97 - 105 mmol/L [facility] CO2 [Moles/Vol] 24 mmol/L 22 - 30 mmol/L [facility] Creatinine [Mass/Vol] 1.29 mg/dL High 0.58 - 0.96 mg/dL [facility] Estimated Glomerular Filtration Rate 43 mL/min/1.73m Low >=60 mL/min/1.73m [facility] Glucose [Mass/Vol] 142 mg/dL High 74 - 99 mg/dL [facility] Potassium [Moles/Vol] 4.1 mmol/L 3.7 - 5.1 mmol/L [facility] Protein [Mass/Vol] 5.9 g/dL Low 6.3 - 8.0 g/dL [facility] Sodium [Moles/Vol] 143 mmol/L 136 - 144 mmol/L [facility] Urea nitrogen [Mass/Vol] 32 mg/dL High 7 - 21 mg/dL [facility] FERRITIN BLDon 05-13-2021 Ferritin [Mass/Vol] 30.7 ng/mL 14.7 - 205.1 ng/mL [facility] IRON + TIBCon 05-13-2021 Iron [Mass/Vol] 13 ug/dL Low 41 - 186 ug/dL [facility] Iron binding capacity [Mass/Vol] 347 ug/dL 232 - 386 ug/dL [facility] Iron/TIBC [Molar ratio] 4 % Low 15 - 57 % [facility] No Panel Informationon 08-04 Radiology Study observation (narrative) [facility] XR HIP BILAT 5V PEL/AP/LAT E ACH HIPon 08-04-2020 IMPRESSION: 1. Status post total left hip replacement. 2. Mild right hip joint space narrowing. Survey Interviewer: SAAD Transcribe Date/Time: Aug 04 2020 12:15P Dictated by : NIMA HESS MD This examination was interpreted and the report reviewed and electronically signed by: NIMA HESS MD on Aug 04 2020 1:09PM [facility] DIVISION OF RADIOLOGY * * *Final Report* * * DATE OF EXAM: Aug 04 2020 10:02AM WOX [id number] - XR HIP SUSANA 5V PEL+ AP/LAT EA HIP / PROCEDURE REASON: multiple diagnoses * * * * Physician Interpretation * * * * CLINICAL INDICATION: Hip pain TECHNIQUE: AP radiograph of the pelvis and AP/frog-leg lateral radiographs of the bilateral hips COMPARISON: Radiograph dated December 03, 2013 FINDINGS: Postsurgical changes from total left hip replacement with no radiographic evidence of hardware complications. Mild right hip joint space narrowing. Degenerative changes in the visualized lower lumbar spine. DIVISION OF RADIOLOGY Provider, Kervin Erazo - 08/04/2020 * * *Final Report* * * DATE OF EXAM: Aug 04 2020 10:02AM WOX 5353 - XR HIP SUSANA 5V PEL+ AP/LAT EA HIP / PROCEDURE REASON: multiple diagnoses * * * * Physician Interpretation * * * * CLINICAL INDICATION: Hip pain TECHNIQUE: AP radiograph of the pelvis and AP/frog-leg lateral radiographs of the bilateral hips COMPARISON: Radiograph dated December 03, 2013 FINDINGS: Postsurgical changes from total left hip replacement with no radiographic evidence of hardware complications. Mild right hip joint space narrowing. Degenerative changes in the visualized lower lumbar spine. IMPRESSION IMPRESSION: 1. Status post total left hip replacement. 2. Mild right hip joint space narrowing. Survey Interviewer: [facility] Transcribe Date/Time: Aug 04 2020 12:15P Dictated by : NIMA HESS MD This examination was interpreted and the report reviewed and electronically signed by: NIMA HESS MD on Aug 04 2020 1:09PM [facility] XR Lumbar spine 3 Viewson IMPRESSION: Spondylosis of the lumbar spine. Grade 1 anterolisthesis of L5 on S1.. Survey Interviewer: SAAD Transcribe Date/Time: Aug 04 2020 1:11P Dictated by : KERRY KOWALSKI MD This examination was interpreted and the report reviewed and electronically signed by: KERRY KOWALSKI MD on Aug 04 2020 1:13PM [facility] DIVISION OF RADIOLOGY * * *Final Report* * * DATE OF EXAM: Aug 04 2020 10:02AM WOX 5228 - XR LUMBAR 3V AP/LAT/L5-S1 / PROCEDURE REASON: multiple diagnoses * * * * Physician Interpretation * * * * Lumbar spine radiographs HISTORY: 79 years old Clinical information: Left hip pain Chronic left-sided low back pain with left-sided sciatica Chronic left-sided low back pain with left-sided sciatica Lower back pain that radiates down the left leg chronically. Diffuse right hip pain chronically. No injury TECHNIQUE: Images: XR LUMBAR 3V AP/LAT/L5-S1 Comparison: None. RESULT: Findings: For the purposes of this dictation the iliac crests are at the L4-5 level. 6 lumbar-like vertebral bodies. Transitional lower lumbar spine vertebral body. Grade 1 anterolisthesis of L5 on S1. Intervertebral disc space narrowing. Intervertebral disc space narrowing and endplate osteophyte formation at multiple levels in the lumbar spine. No fracture. Subchondral sclerosis subjacent to the SI joints. Paraspinous soft tissues are unremarkable in appearance. DIVISION OF RADIOLOGY Provider, Kervin Rios [facility] - 08/04/2020 * * *Final Report* * * DATE OF EXAM: Aug 04 2020 10:02AM WOX 5228 - XR LUMBAR 3V AP/LAT/L5-S1 / PROCEDURE REASON: multiple diagnoses * * * * Physician Interpretation * * * * Lumbar spine radiographs HISTORY: 79 years old Clinical information: Left hip pain Chronic left-sided low back pain with left-sided sciatica Chronic left-sided low back pain with left-sided sciatica Lower back pain that radiates down the left leg chronically. Diffuse right hip pain chronically. No injury TECHNIQUE: Images: XR LUMBAR 3V AP/LAT/L5-S1 Comparison: None. RESULT: Findings: For the purposes of this dictation the iliac crests are at the L4-5 level. 6 lumbar-like vertebral bodies. Transitional lower lumbar spine vertebral body. Grade 1 anterolisthesis of L5 on S1. Intervertebral disc space narrowing. Intervertebral disc space narrowing and endplate osteophyte formation at multiple levels in the lumbar spine. No fracture. Subchondral sclerosis subjacent to the SI joints. Paraspinous soft tissues are unremarkable in appearance. IMPRESSION IMPRESSION: Spondylosis of the lumbar spine. Grade 1 anterolisthesis of L5 on S1.. Survey Interviewer: PSCB Transcribe Date/Time: Aug 04 2020 1:11P Dictated by : KERRY KOWALSKI MD This examination was interpreted and the report reviewed and electronically signed by: KERRY KOWALSKI MD on Aug 04 2020 1:13PM EST [facility] XR Lumbar spine 3 ViewsOrder ed By: [facility] Provider on 08-04-2020 [facility] CNCOon 06-22-2018 CNCO Letter Text Normal [facility] Basic Metabolic Panlon 06-20 Anion gap molar conc 10 mmol/L Normal 0-15 [facility] Calcium mass conc 8.9 mg/dL Normal 8.5-10.5 [facility] Chloride molar conc 106 mmol/L Normal 98-110 [facility] CO2 molar conc 26 mmol/L Normal 23-32 [facility] Creatinine mass conc 0.65 mg/dL Low 0.7-1.4 [facility] Glucose mass conc 149 mg/dL High 65-100 [facility] Potassium molar conc 4.1 mmol/L Normal 3.5-5.0 [facility] Sodium molar conc 142 mmol/L Normal 132-148 [facility] Urea nitrogen mass conc 15 mg/dL Normal 8-25 [facility] CASE MANAGEMon 06-20-2018 CASE MANAGEM HNO ID: [id number] Author: Lawanda Mark (Sw) Service: Care Management Author Type: Structural Architect Type: Care Mgt Progress Note Filed: 06/20/2018 10:27 AM Note Text: CARE MANAGEMENT DISCHARGE NOTE SERVICE DATE: 06/20/2018 SERVICE TIME: 10:19am LOS: 1 day Admission Date: 06/19/2018 DISCHARGE ARRANGEMENT (list agency and phone number) Home Provider: Dr Henderson CAREGIVER ASSESSMENT: Caregiver is ready, willing and able to meet the patient's needs as recommended by the inter-professional team? Spouse can offer assistance Patient's transition needs and plan for meeting these needs: Follow up with Dr Henderson. Does the patient have an acute stroke diagnosis, or has the patient had a stroke during this admission? No HANDOFF COMMUNICATION: Primary Care Physician: Dr Matias Phone Number: . [phone] () Md is pcp summary of care sent via [facility] Nurse to provide discharge instructions. TRANSPORTATION ARRANGEMENTS: Car Spouse and daughter ADDITIONAL CONTACT RESOURCES: Needs Prior to Discharge: Ready for Discharge Future Appointments Date Time Provider Department Center 07/03/2018 11:00 AM [facility] 07/03/2018 11:30 AM Sky MarionRn) TRUDY Perdomo [facility] 07/30/2018 2:15 PM Taylor Williamson [facility] ? Pt discharged home to follow up as above. Spouse can offer assistance after discharge. 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 No Advance Directive: Current Advance Directive: Health Care Power of Adult Services Librarian In Chart: No Health Literacy: 1. How often do you need to have someone help you when you read instructions, pamphlets, or other written material from your doctor or pharmacy? Never - 1 2. How confident are you filling out medical forms by yourself? Extremely - 1 If Patient scores > 3 on either question, the following interventions were put into place: Patient did not score > 3 FUNCTIONAL AND COGNITIVE/BEHAVIORAL PRIOR TO ADMISSION: Baseline Mental Status: Alert AND Oriented, Person, Place , Time and Situation Functional Status: Independent Does Patient Currently Receive Any Community Services or Home Care? None Equipment Prior to Admission: None Has the Patient Been in a Fdc Facility in the Past 30 days? No SOCIAL: Living Arrangement: Home Lives With: Spouse Financial Resources: Retired Primary Contact: Extended Emergency Contact Information Primary Emergency Contact: Paul Castro Address: [address] [place] [id number] Mobile Relation: Spouse Secondary Emergency Contact: Zora Castro Mobile Relation: Daughter Supportive: Yes Other Important Patient Contacts: None Caregiver Assessment: Caregiver is ready, willing and able to meet the patient's needs as recommended by the inter-professional team? TBD Patient's transition needs and plan for meeting these needs: Follow up with Dr Henderson Does the patient have an acute stroke diagnosis, or has the patient had a stroke during this admission? No Medication Adherence: I am convinced of the importance of my prescription medication: Agree completely - 0 I worry that my prescription medication will do more harm than good to me Disagree completely - 0 I feel financially burdened by my [id number] expenses for my prescription medication: Disagree completely - 0 Patient is categorized as low risk < 2 Are you interested in bedside delivery of your medications? No Food Concerns: In the Last Month, Have You had Trouble Getting Food? No trouble getting food During the Last Month, Have You Worried Whether Your Food Would Run Out Before You Had Enough Money to Buy More? No Is the Patient Psychosocially Complex? No ASSESSMENT AND PLAN: Medical Needs: 2 or more chronic diseases Psychosocial Needs: None FREEDOM OF CHOICE EXPLAINED: Yes PT TBD POTENTIAL TRANSITION PLANS Home 06/20/2018 10:06 AM Pt admitted due to Left shoulder primary glenohumeral osteoarthritis, rotator cuff tear. Pt had left reverse total shoulder arthroplasty done on 06/20/18.Pt is alert and oriented.PHA indep with adl's lives with spouse who will be able to offer assistance after discharge. SW/TCC to follow to assist with plans for discharge. SIGNATURE: RAMIN Borges PATIENT NAME: Letha Castro DATE: June 20, 2018 TIME: 10:15 AM PAGER/CONTACT #: [phone] Normal [facility] CBCon 06-20-2018 Absolute nRBC <0.01 Normal <0.01 [facility] Erythrocyte distribution width Ratio (RBC) 14.6 % Normal 11.5-15.0 [facility] Hematocrit Volume Fraction (Bld) 39.7 % Normal 36.0-46.0 [facility] Hemoglobin mass conc (Bld) 11.9 g/dL Normal 11.5-15.5 [facility] MCH Entitic mass (RBC) 26.8 pG Normal 26.0-34.0 [facility] MCHC mass conc (RBC) 30.0 g/dL Low 30.5-36.0 [facility] MCV Entitic volume (RBC) 89.4 fL Normal 80.0-100.0 [facility] Platelet mean volume Entitic volume (Bld) 11.6 fL Normal 9.0-12.7 [facility] Platelets #/vol (Bld) 249 10*3/uL Normal 150-400 [facility] RBC #/vol (Bld) 4.44 10*6/uL Normal 3.90-5.20 [facility] WBC #/vol (Bld) 11.63 10*3/uL High 3.70-11.00 [facility] NURSING PROGon 06-20-2018 Protein mass conc HNO ID: [id number] Author: Parminder (Rn) TRUDY Vance Service: Nursing Author Type: Registered Nurse Type: Nursing Progress Note Filed: 06/20/2018 3:13 PM Note Text: Nursing Progress Note Patient Name: Letha Castro Patient Location: [facility] [place] Daily Note:Patient awake, no S/S of distress, AANDO x 3, lungs clear AND SPO2 = 96% on RA, dressing on left shoulder is dry AND intact, BS present, abdomen soft AND non-tender, denies being dizzy or nauseas, denies having BM since surgery, moves left hand, cap refill < 3 sec, hand warm, no edema, denies any pain, sequentials on bilaterally, call light AND incentive spirometer both within reach, denies any other needs at this time. 1415 - Reviewed D/C instructions, home meds, dressing care, follow-up appts, etc.... - Patient educated on use of PRN pain medication during discharge teaching; Side effects of Narcotic medication pamphlet given to patient. Importance of taking medications with food to reduce risk of nausea and vomiting discussed. Discussed weaning off narcotics in a timely matter and to reach out to the physician if pain is not controlled or need for narcotic refills. The timing of medications, strengths, and safe doses reviewed on discharge summary. 1434 - Patient left unit by wheelchair (D/C'd home) This note was completed by: Parminder Vance RN [facility] PROGRESSon 06-20-2018 Protein mass conc HNO ID: [id number] Author: Aline Whalen Service: General Internal Medicine Author Type: Nurse Practitioner Type: Progress Notes Filed: 06/20/2018 12:54 PM Note Text: INPATIENT PROGRESS NOTES Name: Letha Castro Date of Service: June 20, 2018 SUBJECTIVE: Seen and examined at bedside. Patient states she still having no pain and she still numb and tingly in her hands although they are mobile. She has no other complaints this morning. PERTINENT ROS: All others reviewed and negative except as per HPI MEDICATIONS: Current Facility-Administered Medications Medication Dose Route Frequency - multivitamin 1 tablet tab(s) 1 tablet ORAL DAILY - aspirin, enteric coated 81 mg tab(s) 81 mg ORAL BID - NaCl 0.9% iv infusion 75 mL/hr INTRAVENOUS CONTINUOUS - HYDROmorphone 0.4 mg injection (DILAUDID) 0.4 mg INTRAVENOUS q 4 H PRN - oxyCODONE-acetaminophen 5-325 mg 1-2 tablet (PERCOCET) 1-2 tablet ORAL q 6 H PRN - acetaminophen 325-650 mg tab(s) (TYLENOL) 325-650 mg ORAL q 4 H PRN - polyethylene glycol 3350 17 g packet (MIRALAX, GLYCOLAX) 17 g ORAL DAILY PRN - vancomycin iv piggyback 1 g in D5W 200 mL (VANCOCIN) 1 g INTRAVENOUS q 12 HR PHYSICAL EXAM: 06/19/18 2327 06/20/18 0401 06/20/18 0725 06/20/18 0735 BP: 113/59 99/54 100/62 Pulse: 83 74 79 Resp: 16 16 16 Temp: 36.8 ?C (98.2 ?F) 36.5 ?C (97.7 ?F) 37.2 ?C (98.9 ?F) TempSrc: Oral Oral Oral SpO2: 94% 96% 96% 98% Weight: Height: GEN: well appearing, female, in no acute distress. SKIN: skin color, texture, turgor normal, no suspicious rashes NECK: no JVD. Supple, LUNGS: Clear SUSANA. No wheezes. CV: RRR. Normal s1/s2. No murmurs appreciated. ABD: Soft, non-tender, non-distended. Bowel sounds present. EXT: No edema. Peripheral pulses normal. surgical dressing to left shoulder intact, dry Homans sign negative bilaterally. NEURO: alert oriented x3 Grossly intact. No focal deficits. 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 Continue with PT/OT. Encourage strict IS. Acute postoperative pain of left shoulder[G89.18]:Pain still controlled . Pain control goals were discussed. Continue with current medications. Control pain with meds ordered . Constipation [K59.00]: continue with bowel regimen while taking pain medications. DVT ppx: ASA 81mg bid x 14days. SCDs. Ambulation with PT/OT. ? Case management for dc planning-home when cleared by therapy Discussed and developed plan of care with Dr. Noonan. Aline Whalen APRN.[employer] June 20, 2018 10:22 AM Normal [facility] Protein mass conc HNO ID: [id number] Author: Derek Calderon Service: Orthopaedic Surgery Author Type: Resident Type: Progress Notes Filed: 06/20/2018 5:55 AM Note Text: ORTHOPAEDIC SURGERY PROGRESS NOTE Impression/Plan: 77 year old female POD1 s/p left reverse TSA with Taylor Williamson on 06/19/2018. No issues. - DVT prophylaxis: ASA 81mg BID x 2 weeks - Weight Bearing/Activity: Non-weight bearing Left upper extremity - Precautions: sling at all times - Encouraged IS - OT consulted, stefanie recs for Today - Case management, appreciate recs for discharge TOday - Anticipate D/C: Today Subjective: Pain controlled, no nausea/vomiting, no chest pain, no shortness of breath. No issues overnight. Having no pain, nerve block working well. Vitals: BP 99/54 Pulse 74 Temp 36.5 ?C (97.7 ?F) (Oral) Resp 16 Ht 160 cm (5' 3) Wt 69 kg (152 lb 3.2 oz) SpO2 96% BMI 26.96 kg/m? Intake/Output Summary (Last 24 hours) at 06/20/2018 0549 Last data filed at 06/20/2018 0400 Gross per 24 hour Intake 2310 ml Output 650 ml Net 1660 ml Physical Examination: General: alert/oriented x3, in no apparent distress LUE: Dressing c/d/i Sling in place Intact and full active and passive flexion and extension at MCP/PIP/DIP joints Intact AIN/PIN/distal ulnar motor Sensation intact to light touch in Median/Ulnar/Radial nerve distribution distally 2+ radial pulse, fingers warm and well perfused Lab: CBC, Coags, BMP, Mg, Phos Normal [facility] THERAPY NTon 06-20-2018 THERAPY NT HNO ID: [id number] Author: Melvi (Ot) Skylar Service: Occupational Therapy Author Type: Occupational Therapist Type: Therapy (PT/OT/Speech/Resp) Filed: 06/20/2018 12:06 PM Note Text: Occupational Therapy Treatment SERVICE DATE: 06/20/2018 SERVICE TIME: 1115 to 1147 ROOM: [address] Recommended Discharge Disposition: Home Anticipated Discharge Needs: Physical Assist at Home Physical Assist at Home for: Laundry;Shopping;Transportati on;Cleaning OT Recommendations to Nursing: To Bathroom for ADL?s /and or Toileting;OOB for meals OT 6 Clicks Score: 18 Precautions/Activity Restrictions: Shoulder Precautions;Weight Bearing Restrictions(Reverse shoulder) Extremity With Weight Bearing Restricted: Left Upper Extremity Left Upper Extremity Weight Bearing Status: NWB Shoulder Precautions: External rotation limitation;Forward elevation limitation Shoulder External Rotation Limited To: 0 degrees Shoulder Forward Elevation Limited To: 0 degrees ASSESSMENT: Patient Disposition at Start of Session: OOB in Chair;Call Way in Reach;Family Present Patient Disposition at End of Session: OOB in Chair;Call Way in Reach;Family Present Tolerated Full Session Occupational Therapy Problem List: Impaired Self Care;Education Deficit;Pain Patient /Caregiver Goals: Go Home Goals for Plan of Care: Able to perform HEP with: Independent Grooming with: Independent Upper Body Bathing with: Modified Independent Upper Body Dressing with: Modified Independent Lower Body Bathing with: Modified Independent Lower Body Dressing with: Modified Independent Demonstrate Competence With Education with: Independent Progress Toward Goals: Progressing as expected Rehab Potential: Good PLAN: Treatment Frequency (times per week): 2 Current admission Treatment Interventions: Education;Self Care / Home Management;Pain Management;Wound Care Management Plan of Care developed with: Patient TREATMENT INTERVENTIONS: Therapy Diagnosis: Decreased activities of daily living (ADL) Interventions Provided: Self Snf Management (31200) Self Snf Management (26708) Treatment Minutes: 32 2 units Skilled Intervention(s): Instructed in post-op instructions during ADLs Provided instruction, cuing and facilitation for upper body dressing Education in Pt and family were taught shoulder precautions and protocol per Dr Williamson. Instructed and educated patient and family on safety with ambulation and wearing sling. Instructed and educated patient and spouse/daughter on: - ADL technique; drop arm, patient able demonstrate with mod A and cues d/t. Instructed and educated patient on one handed technique for LE dressing. Recommend patient perform dressing in seated position to decrease risk of LOB and falls. - IADLs: encouraged patient to avoid assisting with IADLs until cleared by surgeon -NWBing status and NO AROM at shoulder, instructed patient on AROM for elbow, wrist and hand to increase circulation to decrease blood clots and edema. - bathing technique and instruction provided to bathe after 5 days, Handout provided - patent not allowed to drive until okayed by MD - instructed patient to wear sling in public and in car for 6 weeks -Pt okay to doff sling and hang and dangle arm at side within home after 72 hours from sx, recommended pt to wear sling if attempting to use surgical arm within home. -instructed on technique on propping up UE on pillow for edema and pain management. - Instructed on proper don/doff technique of shoulder sling and correct positioning, patient able to demonstrated with mod A and cues - Patient seated EOB, call light within reach, family at bedside. Reported to nursing education completed with this patient. Total Timed Code Treatment Minutes: 32 Total Treatment Time (minutes): 32 SUBJECTIVE: Current Hospital Course: Chart reviewed and no significant medical updates relevant to therapy were noted Reason for Occupational Therapy Consult: Recent changes in ability to perform self-care Relevant Past Medical History: HLD, JOHNY, Essential tremor, Hip OA, Mitral Valve Regurgitation Patient Report: I've got lots of good help at home. Home Environment Patient Lives With: Spouse Assistance Available: multimedia production assistant Entry To Home: Stairs;With Rail Number Of Stairs Into Home: 4 Number Of Stairs To Bed/Bath: 1 flight Stairs to Bed/Bath with: Unilateral Rail Tub/Shower Type: Tub Laundry: assistance available Equipment Owned: Grab Bars-Shower;Gas Line Servicer;Shower Chair Prior Functional Level: Within Functional Limits(Pt reports I in all ADLs/IADLs) OBJECTIVE: CURRENT FUNCTIONAL STATUS: Current Activities of Daily Living Assist Level Feeding Independent Grooming Modified Independent Bathing Upper Body Minimal Assistance Bathing Lower Body Moderate Assistance Dressing Upper Body Moderate Assistance Dressing Lower Body Minimal Assistance Toileting Stand By Assistance Instrumental Activities of Daily Living Assist Level Meal/Beverage Prep Light Cleaning Laundry Medication Management with Strategies Functional Mobility Assist Level Rolling Supine to Sit Sit to Supine Scooting Sit to Stand Supervision Stand to Sit Contact Guard Assistance Bed to Chair Toilet/Commode Functional Mobility Balance: Static Sitting;Dynamic Sitting;Static Standing Static Sitting Balance: Supervision Dynamic Sitting Balance: Supervision Static Standing Balance: Supervision Please see discipline specific clinical documentation flowsheet for complete details for this therapy evaluation/treatment. SIGNATURE: ROSALBA Mansfield/L PATIENT NAME: Letha Castro DATE: June 20, 2018 TIME: 11:58 AM [facility] THERAPY NT HNO ID: [id number] Author: Melvi Geronimo Service: Occupational Therapy Author Type: Occupational Therapist Type: Therapy (PT/OT/Speech/Resp) Filed: 06/20/2018 10:08 AM Note Text: Occupational Therapy Evaluation SERVICE DATE: 06/20/2018 SERVICE TIME: 829 to 929 ROOM: [facility]-P Recommended Discharge Disposition: Home Anticipated Discharge Needs: Physical Assist at Home Physical Assist at Home for: Laundry;Shopping;Transportati on;Cleaning OT Recommendations to Nursing: To Bathroom for ADL?s /and or Toileting;OOB for meals OT 6 Clicks Score: 18 Precautions/Activity Restrictions: Shoulder Precautions;Weight Bearing Restrictions(Reverse shoulder) Extremity With Weight Bearing Restricted: Left Upper Extremity Left Upper Extremity Weight Bearing Status: NWB Shoulder Precautions: External rotation limitation;Forward elevation limitation Shoulder External Rotation Limited To: 0 degrees Shoulder Forward Elevation Limited To: 0 degrees ASSESSMENT: Patient presents with low complexity assessment, as pt had elective sx of Reverse L TSA , with past history of Mitral Valve Regurgitation, HLD, JOHNY, Essential Tremor, Hip OA. Patient having undergone orthopedic surgery, will need to have vitals closely monitored for safety. Pt requires skilled OT for instruction promoting independence and safety with self cares and functional mobility/transfers, mindful of weight bearing status and any precautions associated with current surgical procedure. Patient Disposition at Start of Session: Supine in Bed;Call Way in Reach;SCDs Patient Disposition at End of Session: Supine in Bed;Call Way in Reach;SCDs Tolerated Full Session Occupational Therapy Problem List: Impaired Self Care;Education Deficit;Pain Patient /Caregiver Goals: Go Home Goals for Plan of Care: Able to perform HEP with: Independent Grooming with: Independent Upper Body Bathing with: Modified Independent Upper Body Dressing with: Modified Independent Lower Body Bathing with: Modified Independent Lower Body Dressing with: Modified Independent Demonstrate Competence With Education with: Independent Rehab Potential: Good PLAN: Treatment Frequency (times per week): 2 Current admission Treatment Interventions: Education;Self Care / Home Management;Pain Management;Wound Care Management Plan of Care developed with: Patient TREATMENT INTERVENTIONS: Therapy Diagnosis: Decreased activities of daily living (ADL) Interventions Provided: Evaluation;Self Snf Management (94060) $ Evaluation-Low (84261) Billed Units: 1 unit Self Snf Management (59122) Treatment Minutes: 53 4 units Skilled Intervention(s): Education in Provided instruction, cuing and facilitation for upper body dressing; pt instructed to dress surgical arm first during recovery. Pt given tip to use drop arm technique when dressing in order to avoid AROM. Provided instruction, cuing and facilitation for lower body dressing; Pt given tip to wear loose fitting pants in order to make it easier to dress self independently during recovery. Provided instruction, cuing and facilitation for bathing; Pt instructed not to shower for 5 days after surgery and instructed not to shower until there has been no drainage from incision for at least 3 days to decrease risk of infection. Education in: Pt educated on shoulder precautions, no AROM; no pushing, pulling, lifting, or external rotation; NWB on L UE. Pt instructed to wear brace continuously for first 72 hours after surgery and then to remove brace while at home. Pt instructed to always wear brace when sleeping and leaving the home. Pt instructed to keep elbow at side when arm is out of brace and to complete grooming tasks with elbows at sides and to complete activities waist high. Lightweight activities are encouraged in order to decrease risk of adhesion formation. Pt given pain relieving technique of placing pillow under arm while sitting in order to decrease pull of gravity on arm. Pt told that nerve block wears off at fingers first, then elbow, then shoulder. Pt instructed to complete elbow, wrist, and finger exercises every 4 hours, 10 repetitions for each. Total Timed Code Treatment Minutes: 53 Total Treatment Time (minutes): 60 SUBJECTIVE: Current Hospital Course: Chart reviewed; 77 y/o female admitted for elective sx Reverse L TSA on 06/19/[address] Williamson Reason for Occupational Therapy Consult: Recent changes in ability to perform self-care Relevant Past Medical History: HLD, JOHNY, Essential tremor, Hip OA, Mitral Valve Regurgitation Patient Report: Patient reports she would like to return to gardening. Home Environment Patient Lives With: Spouse Assistance Available: multimedia production assistant Entry To Home: Stairs;With Rail Number Of Stairs Into Home: 4 Number Of Stairs To Bed/Bath: 1 flight Stairs to Bed/Bath with: Unilateral Rail Tub/Shower Type: Tub Laundry: assistance available Equipment Owned: Grab Bars-Shower;Gas Line Servicer;Shower Chair Prior Functional Level: Within Functional Limits(Pt reports I in all ADLs/IADLs) OBJECTIVE: CURRENT FUNCTIONAL STATUS: Current Activities of Daily Living Assist Level Feeding Independent Grooming Modified Independent Bathing Upper Body Minimal Assistance Bathing Lower Body Moderate Assistance Dressing Upper Body Moderate Assistance Dressing Lower Body Minimal Assistance Toileting Stand By Assistance Instrumental Activities of Daily Living Assist Level Meal/Beverage Prep Light Cleaning Laundry Medication Management with Strategies Functional Mobility Assist Level Rolling Supine to Sit Sit to Supine Scooting Sit to Stand (Will assess functional mobility next session) Stand to Sit Bed to Chair Toilet/Commode Functional Mobility Please see discipline specific clinical documentation flowsheet for complete details for this therapy evaluation/treatment. SIGNATURE: ROSALBA Mansfield/Isadora PATIENT NAME: Letha Castro DATE: June 20, 2018 TIME: 9:58 AM [facility] ANES Juan José 06-19-2018 ANES POST HNO ID: [id number] Author: Brien Bethea Service: Anesthesiology Author Type: Anesthesiologist Type: Anesthesia PostOp Filed: 06/19/2018 4:40 PM Note Text: POST ANESTHESIA EVALUATION NOTE SERVICE DATE: 06/19/2018 SERVICE TIME: : 1940 Vitals: 06/19/18 1027 06/19/18 1556 Temp: 36.3 ?C (97.3 ?F) 36.5 ?C (97.7 ?F) 06/19/18 1315 06/19/18 1556 06/19/18 1615 06/19/18 1630 BP: 132/71 149/83 132/78 125/80 06/19/18 1315 06/19/18 1556 06/19/18 1615 06/19/18 1630 Pulse: 64 80 83 76 06/19/18 1315 06/19/18 1556 06/19/18 1615 06/19/18 1630 Resp: 18 12 18 16 06/19/18 1315 06/19/18 1556 06/19/18 1615 06/19/18 1630 SpO2: 99% 97% 99% 99% Validated Vital Signs: Yes POST ANES STATUS: No apparent anesthetic complications. The patient is appropriately hydrated with stable respiratory and cardiovascular status. Patient has safe and adequate airway control. The patient has appropriate pain relief and no significant post operative nausea or vomiting. The patient has achieved baseline mental status. Intra-Operative Events: No Significant Anesthesia Events Further assessment by Anesthesia Service: None Other Remarks: SIGNATURE: Brien Bethea DO PATIENT NAME: Letha Castro DATE: June 19, 2018 TIME: 4:40 PM PAGER/CONTACT #: [facility] ANES PREOPon 06-19-2018 ANES PREOP HNO ID: [id number] Author: Brien Bethea Service: Anesthesiology Author Type: Anesthesiologist Type: Anesthesia PreOp Filed: 06/19/2018 11:49 AM Note Text: ANESTHESIOLOGY DAY OF SURGERY NOTE SERVICE DATE: 06/19/2018 SERVICE TIME: 10:57 AM : 1940 Procedure(s) (LRB): ARTHROPLASTY TOTAL SHOULDER; W/ GLENOID AND PROXIMAL HUMERAL REPLACEMENT (Left) Surgeon(s): Taylor Williamson Estimated body mass index is 26.96 kg/m? as calculated from the following: Height as of this encounter: 160 cm (5' 3). Weight as of this encounter: 69 kg (152 lb 3.2 oz). Most recent hematocrit and potassium results: Hematocrit 44.9 06/04/2018 Potassium 4.0 06/04/2018 ANES DOS/PREOP NOTE: Vitals: 06/19/18 1027 BP: 151/83 Pulse: 75 Resp: 18 Temp: 36.3 ?C (97.3 ?F) TempSrc: Temporal SpO2: 98% Weight: 69 kg (152 lb 3.2 oz) Height: 160 cm (5' 3) ACTIVE PROBLEM LIST Varicose Veins of Lower Extremities With Other Complications Hip Osteoarthritis Pain in Joint, Ankle and Foot Arthritis, Midfoot Tremors of Nervous System Overweight (Bmi 25.0-29.9) Essential Tremor Hyperlipidemia Glenohumeral Arthritis, Left PAST MEDICAL HISTORY Diagnosis Date - Essential tremor - Hyperlipidemia - Iron deficiency - Overweight (BMI 25.0-29.9) - PMH - PAST MEDICAL HISTORY OF arthritis - PMH - PAST MEDICAL HISTORY OF varicose veins - PMH - PAST MEDICAL HISTORY OF mitral regurg PAST SURGICAL HISTORY Procedure Laterality Date - APPENDECTOMY - COLONOSCOP W/ OR W/O BRS SPEC 2004 Colonoscopy - COLONOSCOP W/ OR W/O BRSH SPEC 07/17/14 Colonoscopy - EGD W/O OR W/BRUSH/WASH 07/17/14 EGD - PAST SURGICAL HISTORY OF Bilateral 2005 VEIN STRIPPING - PAST SURGICAL HISTORY OF 1999 heart cath - TOTAL HIP REPLACEMENT 01/28/2014 left arthroplasty - TOTAL KNEE REPLACEMENT 02/12/2009 Knee replacement, total left - TOTAL KNEE REPLACEMENT 2009 Right knee FAMILY HISTORY Problem Relation Age of Onset - Lipids Mother - other (parkinsons) Mother - Prostate Cancer Father - other (Tremors) Father - Lipids Sister - Coronary Artery Disease Sister Cabg x3 - Lipids Sister - Breast Cancer Sister - Lipids Brother - Coronary Artery Disease Brother CABG - other (tremors) Brother Social History: Social History Tobacco Use - Smoking status: Never Smoker - Smokeless tobacco: Never Used Substance Use Topics - Alcohol use: No - Drug use: No No current facility-administered medications on file prior to encounter. Current Outpatient Medications on File Prior to Encounter: TURMERIC ORAL Take by mouth. CALCIUM CARB/VIT D2/MINERALS (CALTRATE PLUS ORAL) Take by mouth. aspirin, enteric coated (ASPIRIN, ENTERIC COATED) 81 mg EC tablet Take 81 mg by mouth once daily. IRON, FERROUS SULFATE, ORAL Take 1 tablet by mouth once daily. THERAPEUTIC MULTIVITAMIN TAB Take one(1) tablet daily. meloxicam (MOBIC) 15 mg tablet Take 15 mg by mouth once daily. Current Facility-Administered Medications: lidocaine 10 mg/mL (1 %) 1-2 mg injection (XYLOCAINE) 0.1-0.2 mL INTRADERMAL PRN Samira Jay (Pa) lactated ringers infusion 5-30 mL/hr INTRAVENOUS CONTINUOUS Samira Jay (Pa) vancomycin iv piggyback 1 g in D5W 200 mL (VANCOCIN) 1 g INTRAVENOUS Pre-Op Once Samira Jay (Pa) clindamycin iv piggyback 900 mg in D5W 50 mL (CLEOCIN) 900 mg INTRAVENOUS Pre-Op Once Samira Jay (Pa) midazolam (PF) 2 mg injection (VERSED) 2 mg INTRAVENOUS Pre-Op Once Brien A Csorba bupivacaine liposome (PF) 1.3 % (13.3 mg/mL) 133 mg injection (EXPAREL) 133 mg INFILTRATION ONCE Brien A Csorba Allergies: ALLERGIES Allergen Reactions - Latex, Natural Rubb* Rash, Intolerance, Itching - Cephalexin - Diclofenac - Iodine Rash During heart cath contrast dye - Levaquin [Levofloxa* Rash - Penicillins Rash DOS EXAM: Adequate NPO status: Yes Anesthetic risks, benefits, alternatives, personnel and consent discussed: Yes Patient agrees to proceed: Yes Previous Anesthesia: No history of adverse event. Airway Assessment: MP 1; Neck ROM: Full ROM without neurologic symptoms; Airway Evaluation: No significant abnormalities Symptoms of Sleep Apnea: None Dentition: Teeth intact Additional Physical Exam: Lungs: Patient health status unchanged since recent history and physical. See history and physical for exam findings. Cardiac: Patient health status unchanged since recent history and physical. See history and physical for exam findings. Additional Pertinent Findings: N/A Blood Products: Not anticipated for this procedure. Anesthetic Plan: General, Standard ASA Monitors and Block with Sedation Pain Management Plan: Parenteral or Oral and Peripheral Nerve Block ASA Class: 2 Other Medical Problems: None Chronic Beta Naeem medication administered within 24 hours: N/A I have interviewed and examined the patient. I have reviewed the medical record and/or the pre-anesthesia evaluation, pertinent labs, and test results. Significant changes in the patient's condition since the History and Physical, not otherwise documented in primary service progress notes: No This contains updated information obtained within 48 hours of Surgery/Procedure. SIGNATURE: Joe Vicente DO PATIENT NAME: Letha Castro DATE: June 19, 2018 TIME: 10:57 AM CSN: [id number] [facility] BRIEF OP NOTon 06-19-2018 BRIEF OP NOT HNO ID: [id number] Author: Derek Calderon Service: Orthopaedic Surgery Author Type: Resident Type: Brief Op Note Filed: 06/19/2018 4:23 PM Note Text: BRIEF OP NOTE LOG ID: [id number] Surgery/Procedure Date: 06/19/2018 Incision/Procedure Start Time: 2:13 PM Incision Close/Procedure End Time: Surgeon(s)/Proceduralist(s) and Crew Member(s): Surgeon(s) and Role: * Taylor Williamson - Primary * Derek Calderon - Resident - Assisting Procedure(s): L rTSA Anesthesia: General Findings: Inflammatory changes, eburnated bone, cartilage loss Estimated Blood Loss: 300 mls Specimens: None Complications: None Pre-Op/Pre-Procedure Diagnosis: L shoulder GH OA Post-Op/Post-Procedure Diagnosis: Glenohumeral arthritis, left [M19.012 SIGNATURE: Derek Calderon MD PATIENT NAME: Letha Castro DATE: June 19, 2018 TIME: 3:50 PM PAGER/CONTACT #: [facility] CONSULTon 06-19-2018 CONSULT HNO ID: [id number] Author: Aline Whalen Service: General Internal Medicine Author Type: Nurse Practitioner Type: Consults Filed: 06/19/2018 5:25 PM Note Text: HISTORY AND PHYSICAL EXAMINATION PATIENT NAME: Letha Castro SERVICE DATE: 06/19/2018 SERVICE TIME: 450 pm PRIMARY CARE PHYSICIAN: Jagjit Matias DO REASON FOR CONSULT: Perioperative managment CHIEF COMPLAINT: S/p Left Total Shoulder Arthroplasty HPI: This is a 77 year old female with history of Mitral regurg, HLD, JOHNY, essential tremor, who presents with complaints of worsening left shoulder pain. She states she has had pain for a year and she worked thru it. 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 She was evaluated by DR Williamson and underwent Left Total Shoulder Arthroplasty. She is laying in bed states no pain or any other complaints at moment. PAST MEDICAL HISTORY: PAST MEDICAL HISTORY Diagnosis Date - Essential tremor - Hyperlipidemia - Iron deficiency - Overweight (BMI 25.0-29.9) - PMH - PAST MEDICAL HISTORY OF arthritis - PMH - PAST MEDICAL HISTORY OF varicose veins - PMH - PAST MEDICAL HISTORY OF mitral regurg PAST SURGICAL HISTORY: PAST SURGICAL HISTORY Procedure Laterality Date - APPENDECTOMY - COLONOSCOP W/ OR W/O BRSH SPEC 2004 Colonoscopy - COLONOSCOP W/ OR W/O BRSH SPEC 07/17/14 Colonoscopy - EGD W/O OR W/BRUSH/WASH 07/17/14 EGD - PAST SURGICAL HISTORY OF Bilateral 2005 VEIN STRIPPING - PAST SURGICAL HISTORY OF 1999 heart cath - TOTAL HIP REPLACEMENT 01/28/2014 left arthroplasty - TOTAL KNEE REPLACEMENT 02/12/2009 Knee replacement, total left - TOTAL KNEE REPLACEMENT 2009 Right knee FAMILY HISTORY: FAMILY HISTORY Problem Relation Age of Onset - Lipids Mother - other (parkinsons) Mother - Prostate Cancer Father - other (Tremors) Father - Lipids Sister - Coronary Artery Disease Sister Cabg x3 - Lipids Sister - Breast Cancer Sister - Lipids Brother - Coronary Artery Disease Brother CABG - other (tremors) Brother SOCIAL HISTORY: Social History Tobacco Use - Smoking status: Never Smoker - Smokeless tobacco: Never Used Substance Use Topics - Alcohol use: No - Drug use: No MEDICATIONS: Prior to Admission Medications Medications Prior to Admission: cholecalciferol, vitamin D3, (VITAMIN D3 ORAL) Take by mouth once daily. Disp: Rfl: more then 7 days mupirocin (BACTROBAN) 2 % ointment Apply 0.5 inch with cotton swab (Q-tip) to each nostril in the morning and evening for 5 days prior to and including day of surgery. Disp: 22 g Rfl: 0 06/19/2018 at am TURMERIC ORAL Take by mouth. Disp: Rfl: more then 7 days CALCIUM CARB/VIT D2/MINERALS (CALTRATE PLUS ORAL) Take by mouth. Disp: Rfl: more then 7 days aspirin, enteric coated (ASPIRIN, ENTERIC COATED) 81 mg EC tablet Take 81 mg by mouth once daily. Disp: Rfl: more then 7 days IRON, FERROUS SULFATE, ORAL Take 1 tablet by mouth once daily. Disp: Rfl: more then 7 days THERAPEUTIC MULTIVITAMIN TAB Take one(1) tablet daily. Disp: Rfl: 0 more then 7 days meloxicam (MOBIC) 15 mg tablet Take 15 mg by mouth once daily. Disp: Rfl: not taken in a very long time In-Patient Medications Current Facility-Administered Medications Medication Dose Route Frequency - ondansetron orally disintegrating 4 mg tab(s) (ZOFRAN ODT) 4 mg ORAL q 6 H PRN Or - ondansetron (PF) 4 mg injection (ZOFRAN) 4 mg INTRAVENOUS q 6 H PRN - lactated ringers infusion 100 mL/hr INTRAVENOUS (PACU) CONTINUOUS - diphenhydrAMINE 12.5 mg injection (BENADRYL) 12.5 mg INTRAVENOUS (PACU) PRN - meperidine (PF) 12.5 mg injection (DEMEROL) 12.5 mg INTRAVENOUS (PACU) PRN - fentaNYL 50 mcg/mL 50 mcg injection (SUBLIMAZE) 50 mcg INTRAVENOUS q 10 MIN PRN - HYDROmorphone 0.2 mg injection (DILAUDID) 0.2 mg INTRAVENOUS q 5 MIN PRN ALLERGIES: ALLERGIES Allergen Reactions - Latex, Natural Rubb* Rash, Intolerance, Itching - Cephalexin - Diclofenac - Iodine Rash During heart cath contrast dye - Levaquin [Levofloxa* Rash - Penicillins Rash COMPLETE REVIEW OF SYSTEMS: GENERAL: No weight loss, malaise or fevers. HEENT: Negative for significant vision problems, hearing loss, hoarseness RESPIRATORY: Negative for cough, wheezing or shortness of breath. CARDIOVASCULAR: Negative for leg swelling, palpitations, orthopnea GI: Negative for abdominal discomfort, change in bowel habit, diarrhea, nausea, vomiting NEURO: Negative for headaches, syncope, paralysis, seizures, hx essential tremors. All other reviewed and negative other than HPI. PHYSICAL EXAM: 06/19/18 1615 06/19/18 1630 06/19/18 1645 06/19/18 1700 BP: 132/78 125/80 132/76 129/76 Pulse: 83 76 79 81 Resp: 18 16 18 18 Temp: TempSrc: SpO2: 99% 99% 98% 94% Weight: Height: GEN: well appearing, female, in no acute distress. SKIN: skin color, texture, turgor normal. No rash. HEENT: no tenderness. PERRL. EOMI. Buccal mucosa moist. NECK: Supple, no adenopathy, no JVD. LUNGS: Clear SUSANA. No wheezes. CV: RRR. Normal s1/s2. No murmurs appreciated. ABD: Soft, non-tender, non-distended. Bowel sounds present x 4. EXT: surgical dressing to left shoulder intact, dry, ice to site . No edema. Peripheral pulses present. Calves soft and non-tender bilaterally. Sling in place. Fingers warm and mobile. NEURO: AANDOx 3. Grossly intact. No focal deficits. 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 Continue with PT/OT. Encourage strict IS. Acute postoperative pain of left shoulder[G89.18]:Pain controlled see HPI . Pain control goals were discussed. Continue with current medications. Control pain with meds ordered . Constipation [K59.00]: continue with bowel regimen while taking pain medications. DVT ppx: ASA 81mg bid x 14days. SCDs. Ambulation with PT/OT. CBC and BMP daily. Case management for dc planning. Discussed common complications and risks with the patient including fever, blood clots, constipation, pain, nausea/vomiting and infection. Encouraged use of incentive spirometer. Above was discussed and plan of care was developed with Dr. Noonan. Please see additional comments and addendum. Thank you for allowing us to participate in the care of your patient. Aline Whalen, EDGARDO.WOMEN'S BASKETBALL COACH June 19, 2018 5:08 PM [facility] NURSING PROGon 06-19-2018 Protein mass conc HNO ID: [id number] Author: Laura (Rn) TRUDY Bess Service: Nursing Author Type: Registered Nurse Type: Nursing Progress Note Filed: 06/19/2018 8:47 PM Note Text: Nursing Progress Note Patient Name: Letha Castro Patient Location: [facility] [place] Daily Note: pt resting in bed. AANDOx3. Assessment complete see NPR. Dressing on left shoulder dry and intact, immobilizer on left arm. Radial pulses palpable, brisk cap refill, reports numbness, fingers are moveable and warm. Denies chest pain, SOB. Educated on use of IS. Saurav seq on bilaterally. Plan of care discussed. Call light within reach no needs at this time. This note was completed by: Laura Bess RN [facility] Protein mass conc HNO ID: [id number] Author: Janneth Bean (Rn) TRUDY Marie Service: ? Author Type: Registered Nurse Type: Nursing Progress Note Filed: 06/19/2018 6:11 PM Note Text: Nursing Progress Note Patient Name: Letha Castro Patient Location: [place] [address] Daily Note: Pt admitted to floor and oriented to room. Alert and oriented. Mood pleasant. Denied chest pain and sob. Denied nausea. Denied any pain at this time. Left shoulder dressing dry and intact. Ice to shoulder. Abductor immobilizer on. Pt denied sensation to LUE. Fingers warm and mobile with brisk cap refill. Educated on IS. Comfort needs met. Will continue to monitor. Toileted. This note was completed by: Janneth Marie RN [facility] OPERATIVE NOon 06-19-2018 OPERATIVE NO HNO ID: [id number] Author: Taylor Williamson Service: Orthopaedic Surgery Author Type: Physician Type: Operative Report Filed: 06/19/2018 4:31 PM Note Text: [place] [id number] [place] OPERATIVE REPORT NAME: Letha Ashley [facility] #: [id number] DATE: 06/19/2018 (2:13pm-3:42pm) AGE: 77 SURGEON 1: Taylor Williamson M.D. EARLY CHILDHOOD EDUCATOR AIDE: 1. Derek Calderon M.D. 2. Avis Mckeon OPERATION: Left reverse total shoulder arthroplasty, biceps tenodesis. ANESTHESIA: General anesthesia with regional interscalene nerve block for postoperative pain control. PREOPERATIVE DIAGNOSIS: Left shoulder primary glenohumeral osteoarthritis, rotator cuff tear. POSTOPERATIVE DIAGNOSIS: Left shoulder primary glenohumeral osteoarthritis, rotator cuff tear, ruptured long head of the biceps tendon. OPERATIVE INDICATIONS: The patient is a 77 year [id number] right-hand dominant white female who has a history of chronic left shoulder pain from a diagnosis of glenohumeral arthritis. She has developed progressively worsening arthritic symptoms, including pain and loss of motion. Recent MRI and CT showed evidence of a full-thickness rotator cuff tear involving the supraspinatus tendon. Due to the failure of nonoperative management, discussion was had about surgical interventions. She was deemed a candidate for left reverse total shoulder arthroplasty. The risks and benefits of the surgery, as well as the expected postoperative course were discussed with the patient at length. The patient understood the risks and benefits, and wished to proceed with the operation. OPERATIVE FINDINGS: There were arthritic changes of the glenohumeral joint on both the humeral and glenoid side, with extensive osteophyte formation along the humeral head. A full-thickness rotator cuff tear involving the entire supraspinatus tendon was present. OPERATIVE PROCEDURE: On the day of surgery, the patient was seen in the preoperative area. The planned surgical procedure and the correct surgical site were again reviewed with the patient and the left upper extremity was marked. Prior to being taken back to the operating room, the patient did receive an interscalene nerve block in her left upper extremity for postoperative pain control. Preoperative antibiotics were given. The patient was then taken back to the operating room and intubated without complications. She was placed in the beach chair position, and the left upper extremity was prepped and draped in the usual sterile fashion. A standard 10-15 cm deltopectoral incision was made along the anterior aspect of the left shoulder. The incision was carried sharply down to the level of the deep fascia. The cephalic vein was identified and taken laterally with the deltoid, while the pectoralis major was taken medially, and dissection was taken through the deltopectoral interval. The upper 1-1.5 cm of the pectoralis major tendon was released from its attachment site on the humerus for greater exposure. The subdeltoid and subacromial spaces were developed deeply. A large inflammatory bursa was present in the subacromial subdeltoid spaces and was excised. The interval between the conjoined and subscapularis tendons was next developed up to the coracoacromial ligament, but this was not taken. Digital palpation was used to verify the integrity of the axillary nerve, which was protected throughout the procedure. The conjoint tendon was then retracted with the self-retaining retractor medially to expose the subscapularis tendon deep to this. The anterior humeral circumflex vessels were clamped and coagulated. The biceps sheath and rotator interval were then opened up. The long head of the biceps tendon had ruptured and auto-tenodesed in the proximal bicipital groove. The remaining tendon was freed up and tenodesed to the upper border of the pectoralis major tendon insertion. The bicipital groove was then further cleaned of soft tissue to better expose the lesser tuberosity and subscapularis insertion. The subscapularis and anterior capsule were then taken down in one sleeve of tissue subperiosteally off of the lesser tuberosity. The tissue was released down to the 6 o'clock position on the anatomic neck of the humeral head to allow delivery of the humeral head into the wound with simultaneous adduction, extension, and external rotation. With the humeral head dislocated and exposed, the articular surface showed advanced degenerative changes. The rotator cuff was inspected and the supraspinatus tendon was completely torn and retracted. All humeral osteophytes were removed along the anatomic neck. We then marked the anatomic neck with an extra-articular cutting guide with a fixed neck-shaft angle of 135 degrees. The humeral head cut was made along this marked site going anteriorly to posteriorly, making sure to exit posteriorly just above the reflection of the rotator cuff. The humeral cut was made in approximately 30 degrees of retroversion. We did not finish the humerus at this point. We then brought the shoulder into an abducted, extended, and externally rotated position for exposure of the glenoid. The humerus was retracted posteriorly with a Fukuda retractor. The capsule was released anteriorly from the labrum initially and anterior glenoid retractors were then placed. The anteroinferior capsule was excised. The capsule was noted to be proliferative and inflammatory. The remaining capsule was then circumferentially released from the glenoid rim and labrum. Care was taken to adequately release the capsule inferiorly for adequate exposure of the inferior glenoid rim. Part of the triceps origin was released inferiorly as part of this exposure. Following this, the labrum was excised circumferentially to completely expose the glenoid rim. We drilled the central drill hole in an inferior position on the glenoid, centered in the midline. The drill hole was then tapped and the cannulated reamer was brought in over the tap and reamed the glenoid just to the start of bleeding bone. The glenoid baseplate (DJO AltiVate Reverse) was then opened up and screwed into the glenoid until it was seated flush on bone. The locking screw guide was then placed on the baseplate, and the four locking screw holes were drilled. The inferior and superior locking screws were placed first, and measured 18 mm and 26 mm, respectively. The anterior and posterior locking screws were placed next, and measured 14 mm and 30 mm, respectively. All screws were tightened until fully locked. Manually reaming was then performed around the baseplate. A 32 mm, -4 mm glenosphere (DJO AltiVate Reverse) was placed over the baseplate and secured and then the proximal humerus was redelivered into the wound with adduction, extension, and external rotation. The cut surface of the humerus was then prepared. The proximal humerus was reamed using the reamer. A 6-mm entry reamer was then placed into the humeral intramedullary canal. The canal was reamed up to a size 10 mm reamer and then broached. The trial size #10 humeral implant with small shell was then placed, again making sure to place the implant in approximately 30 degrees of retroversion. We placed trial liners into the implant and reduced the shoulder to determine the best fit. The +4 mm polyethylene liner showed the best soft tissue tensioning, with no significant areas of impingement, including inferiorly with adduction. The humerus was, therefore, redislocated and the decision was made to proceed with a +4 mm liner. An uncemented #10 stem with small shell and a +4 mm polyethylene liner were opened (DJO AltiVate Reverse). Prior to placing the humeral stem, drilled holes were made along the cut surface of the humerus anteriorly for passage of sutures for the subscapularis repair. Three, #2 Fiberwire sutures were then passed in a horizontal mattress fashion through these drill holes on the cut surface. We then impacted the final humeral prosthesis (DJO AltiVate Reverse) into the humeral canal. Once the stem was securely impacted, the +4 mm polyethylene liner was impacted into the humeral implant. The shoulder was then reduced, and the wound was copiously irrigated. The subscapularis tendon was then repaired back to the cut surface of the humerus. Each of the #2 Fiberwire sutures were passed through the tendon edge in a horizontal mattress fashion and sequentially tied down to reduce the tendon edge back to the cut surface of the humerus. Following this, all retractors were removed, and digital palpation was again used to confirm the integrity of the axillary nerve. The wound was again thoroughly irrigated. A total of 5 L of pulse irrigation was used throughout the case. The deltopectoral interval was loosely closed with interrupted #1 Vicryl stitches. The subcutaneous layer was then closed with interrupted 2-0 Vicryl stitches. A running subcuticular 3-0 Prolene suture was then used to close the skin. Steri-Strips were placed over the incision site, and the wound was sterilely dressed with Adaptic, 4x4 gauze, ABD dressing, and Foam tape. The shoulder was then placed in an abduction sling. The patient was awoken without complication and extubated. She was transferred to the PACU in stable condition. Closing of the incision was performed by Derek Calderon M.D., and Avis Mckeon, with the primary surgeon (Taylor Williamson M.D.) readily available. The remainder of the procedure, including all critical elements, was completed by the primary surgeon (Taylor Williamson M.D.) with assistance from Derek Calderon M.D., and Avis Mckeon ESTIMATED BLOOD LOSS: 100 cc DRAINS: none SPECIMENS: none COMPLICATIONS: none apparent Taylor Williamson M.D. [facility] PT EDon 06-19-2018 PT ED HNO ID: [id number] Author: Sophie (Rn) TRUDY Up Service: Nursing Author Type: Registered Nurse Type: Patient Education Filed: 06/19/2018 10:36 AM Note Text: PRE OP LEARNING ASSESSMENT PROCEDURE/SURGERY: SURGERY: Left shoulder READINESS TO LEARN COGNITIVE ABILITY: Alert and oriented MOTIVATION TO LEARN: Eager Interested FAMILY SUPPORT: High - Very involved in pt care PATIENT LEARNS BEST BY: Multiple Methods FACTORS AFFECTING LEARNING: None PHYSICAL LIMITATIONS AFFECTING LEARNING: None Electronically Signed By: Sophie Up RN In Department: [facility] XR SHOULDER 2V AP/TRUE AP LT on 06-19-2018 XR SHOULDER 2V AP/TRUE AP LT * * *Final Report* * * DATE OF EXAM: Jun 19 2018 5:10PM EUX [id number] - XR SHOULDER 2V AP/TRUE AP LT / PROCEDURE REASON: Shoulder replaced, asymptomatic, follow up * * * * Physician Interpretation * * * * RESULT: XR SHOULDER 2V AP/TRUE AP LT Indication: Shoulder replaced, asymptomatic, follow up. Limitations to the exam: None. Comparison: Noncontrast CT of the left shoulder 06/04/2018. Technique: Portable AP ( external rotation) and Y views of the left shoulder were obtained. FINDINGS: Bones are demineralized, suggesting osteopenia. There is a new reverse total left shoulder arthroplasty in satisfactory alignment. There is no evidence of acute fracture, dislocation, bone lesion or abnormal lucency about the intact hardware. Mild degenerative changes are again seen at the acromioclavicular joint. There is chronic mild subacromial spur formation. The soft tissues are unremarkable. Other: Mild cardiomegaly noted. Mild to moderate diffuse degenerative changes are noted in the visualized spine. IMPRESSION: No acute abnormality identified. Uncomplicated plain film appearance of reverse total left shoulder arthroplasty. Osteopenia. Transcribed Using Voice Recognition Transcribe Date/Time: Jun 19 2018 5:13P Dictated by: CARLA GRAY MD This examination was interpreted and the report reviewed and electronically signed by: CARLA GRAY MD on Jun 19 2018 5:17PM EST [id number] [facility] Confirm Blood Typeon 019 ABO/RH(D) Positive [facility] NURSING PROGon 06-04-2018 Protein mass conc HNO ID: [id number] Author: Reyna (Rn) John, RN Service: ? Author Type: Registered Nurse Type: Nursing Progress Note Filed: 06/18/2018 9:30 AM Note Text: PACC Nurse Progress Note History AND Physical: PACC Visit Date: 06/04/18 Original HANDP Date: N/A ED visit Date: N/A Outside HANDP Scanned Date: N/A Labs Within Last 6 Months: CBC: Date 06/04/18 - In process BMP/CMP: Date 06/04/18 - glucose 110 HBA1C: Date 01/09/18 - 5.8 TYPE AND SCREEN: Date 06/04/18 - in process Conabo: Date 06/04/18 - in process Imaging Within Last 12 Months: See chart Cardiac Testing: EKG pending Last Menstrual Period: LMP Date: Not recorded Postmenopausal >1yr: Yes, S/P Hysterectomy: No BMI Percentile (PEDS): N/A Risk Assessment: N/A Anesthesia Review: N/A Narrative: Labs currently in process. EKG pending. Pre-op Considerations: N/A Chart Check: IN PROGRESS - labs in process. EKG pending. Una Carvajal RN June 04, 2018 3:23 PM June 05, 2018 8:40 AM 06/04/18 EKG - preliminary. Labs dated 06/04/18 - TANDS - Results in chart, Conabo - Results in chart, Bmp - glucose 110, Cbc -WNL. Una Carvajal RN June 18, 2018 9:30 AM Final EKG result from 06/04/18 NSR Chart Check completed. Reyna Lopez RN. Normal [facility] Type and SCR (30D)on 019 ABO/RH(D) Positive [facility] HOSPon 04-10-2018 HOSP Patient:Letha Castro MRN: Height:5' 3(1.6 m) Weight:156 lb (70.761 kg) Outpatient Medications as of 06/19/18: aspirin, enteric coated (ECOTRIN LOW STRENGTH) 81 mg EC tablet oxyCODONE-acetaminophen (PERCOCET) 5-325 mg tablet docusate sodium (COLACE) 100 mg capsule cholecalciferol, vitamin D3, (VITAMIN D3 ORAL) mupirocin (BACTROBAN) 2 % ointment meloxicam (MOBIC) 15 mg tablet TURMERIC ORAL CALCIUM CARB/VIT D2/MINERALS (CALTRATE PLUS ORAL) aspirin, enteric coated (ASPIRIN, ENTERIC COATED) 81 mg EC tablet IRON, FERROUS SULFATE, ORAL THERAPEUTIC MULTIVITAMIN TAB Admission/Clinic Administered Medications as of 06/19/18: Patient has no admission medications. 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] Tremors of nervous system [R25.1] Overweight (BMI 25.0-29.9) [E66.3] Essential tremor [G25.0] Hyperlipidemia [E78.5] Glenohumeral arthritis, left [M19.012] Allergies: Natural Rubber Latex Cephalexin Diclofenac Iodine Levaquin [Levofloxacin] Penicillins Date Verified: 06/19/18 Lab Values Lab Value Units Date High Low POTA* 4.0 mmol/L 06/04/2018 5.1 3.7 ULICES* 44.9 % 06/04/2018 46.0 36.0 Progress Notes (RADIO CT SCAN [facility]): Sammie Lutz 06/04/2018 12:25 PM Signed Radiology Service Progress Note PATIENT NAME: Letha Castro DATE OF SERVICE: June 04, 2018 TIME: 12:25 PM PATIENT IDENTITY VERIFICATION COMPLETED USING TWO (2) METHODS: Patient confirmed name verbally and Date of . PATIENT GENDER DATA: Female. status: : No status: NO. PATIENT RELEVANT IMPLANT DATA REVIEWED: Not Applicable RADIOLOGY DEPARTMENT: CT; Exam(s) Completed: left shoulder w/o PERIPHERAL IV DATA: Not applicable SIGNED BY: Sammie Lutz June 04, 2018 12:25 PM [facility] PROGRESSon 10-10-2017 [facility] NOTES Normal [facility] XR SHOULDER LEFT MIN 2 VIEWS on 10-10-2017 XR SHOULDER LEFT MIN 2 VIEWS XR SHOULDER LEFT MIN 2 VIEWS, XR SHOULDER RIGHT MIN 2 VIEWS, 10/10/2017 10:35 AM EDTCLINICAL STATEMENT: Bilateral shoulder pain.COMPARISON: None.FINDINGS: 2 views of the right shoulder were obtained. There is no evidence of acute fracture or dislocation. Degenerative changes noted in the inferior glenohumeral joint. Humeral head appears smooth in contour. Mild hypertrophic changes are noted at the AC joint which is aligned. Small inferior acromial spur is noted. Visualized portions of the thorax are unremarkable.2 views of the left shoulder were obtained. Degenerative changes are noted in the inferior glenohumeral joint with osteophyte formation and joint space narrowing. A 15 mm ovoid calcific density projects adjacent to the humeral neck. A few other smaller densities are also noted. There is mild flattening of the humeral head along the articular surface on the axillary view with subchondral sclerosis and lucencies. Inferior acromial spur is noted. AC joint is aligned. Visualized portions of the thorax are unremarkable.IMPRESSION: Severe left and mild to moderate right osteoarthritis of the shoulders. Normal [facility] XR SHOULDER RIGHT MIN 2 VIEW Son 10-10-2017 XR SHOULDER RIGHT MIN 2 VIEWS XR SHOULDER LEFT MIN 2 VIEWS, XR SHOULDER RIGHT MIN 2 VIEWS, 10/10/2017 10:35 AM EDTCLINICAL STATEMENT: Bilateral shoulder pain.COMPARISON: None.FINDINGS: 2 views of the right shoulder were obtained. There is no evidence of acute fracture or dislocation. Degenerative changes noted in the inferior glenohumeral joint. Humeral head appears smooth in contour. Mild hypertrophic changes are noted at the AC joint which is aligned. Small inferior acromial spur is noted. Visualized portions of the thorax are unremarkable.2 views of the left shoulder were obtained. Degenerative changes are noted in the inferior glenohumeral joint with osteophyte formation and joint space narrowing. A 15 mm ovoid calcific density projects adjacent to the humeral neck. A few other smaller densities are also noted. There is mild flattening of the humeral head along the articular surface on the axillary view with subchondral sclerosis and lucencies. Inferior acromial spur is noted. AC joint is aligned. Visualized portions of the thorax are unremarkable.IMPRESSION: Severe left and mild to moderate right osteoarthritis of the shoulders. Normal [facility] Vital Signs Date Time Vital Sign Value Performing Clinician Myriam umana 10-07-2024 07:44-0400 Body height 158 cm [employer] Work Phone: [facility] 10-07-2024 07:44-0400 Body mass index (BMI) [Ratio] 27.07 kg/m2 Jagjit Matias DO Work Phone: [facility] 10-07-2024 07:44-0400 Body temperature 97 [degF] Jagjit Matias DO Work Phone: [facility] 10-07-2024 07:44-0400 Body weight 67.59 kg Jagjit Matias DO Work Phone: [facility] 10-07-2024 07:44-0400 Diastolic blood pressure 82 mm[Hg] Jagjit Matias DO Work Phone: [facility] 10-07-2024 07:44-0400 Heart rate 60 /min Jagjit Matias DO Work Phone: [facility] 10-07-2024 07:44-0400 Respiratory rate 16 /min Jagjit Matias DO Work Phone: [facility] 10-07-2024 07:44-0400 Systolic blood pressure 150 mm[Hg] Jagjit Matias DO Work Phone: [facility] 07-10-2024 09:00-0400 Diastolic blood pressure 80 mm[Hg] Rocky Golias PT Work Phone: [facility] 07-10-2024 09:00-0400 Heart rate 65 /min Rocky Golias PT Work Phone: [facility] 07-10-2024 09:00-0400 Systolic blood pressure 137 mm[Hg] Rocky Golias PT Work Phone: [facility] 03-29-2024 12:13-0500 Body mass index (BMI) [Ratio] 27.98 kg/m2 Jagjit Matias DO Work Phone: [facility] 03-29-2024 12:13-0500 Body temperature 98.49 [degF] Jagjit Matias DO Work Phone: [facility] 03-29-2024 12:13-0500 Body weight 69.4 kg Jagjit Matias DO Work Phone: [facility] 03-29-2024 12:13-0500 Diastolic blood pressure 80 mm[Hg] Jagjit Matias DO Work Phone: [facility] 03-29-2024 12:13-0500 Heart rate 64 /min Jagjit Matias DO Work Phone: [facility] 03-29-2024 12:13-0500 Respiratory rate 20 /min Jagjit Matias DO Work Phone: [facility] 03-29-2024 12:13-0500 Systolic blood pressure 130 mm[Hg] Jagjit Matias DO Work Phone: [facility] 10-26-2023 09:00-0400 Body mass index (BMI) [Ratio] 27.14 kg/m2 Rick Salo TAXATION INSPECTOR.WOMEN'S BASKETBALL COACH Work Phone: [facility] 10-26-2023 09:00-0400 Body weight 67.31 kg Rick Salo TAXATION INSPECTOR.WOMEN'S BASKETBALL COACH Work Phone: [facility] 10-26-2023 09:00-0400 Diastolic blood pressure 80 mm[Hg] Rick Salo TAXATION INSPECTOR.WOMEN'S BASKETBALL COACH Work Phone: [facility] 10-26-2023 09:00-0400 Heart rate 74 /min Rick Salo TAXATION INSPECTOR.WOMEN'S BASKETBALL COACH Work Phone: [facility] 10-26-2023 09:00-0400 Respiratory rate 16 /min Rick Salo TAXATION INSPECTOR.WOMEN'S BASKETBALL COACH Work Phone: [facility] 10-26-2023 09:00-0400 SaO2% (BldA) [Mass fraction] 97 % Rick Salo TAXATION INSPECTOR.WOMEN'S BASKETBALL COACH Work Phone: [facility] 10-26-2023 09:00-0400 Systolic blood pressure 132 mm[Hg] Rick Salo TAXATION INSPECTOR.WOMEN'S BASKETBALL COACH Work Phone: [facility] 08-21-2023 09:36-0400 Body mass index (BMI) [Ratio] 27.25 kg/m2 Jagjit Matias DO Work Phone: [facility] 08-21-2023 09:36-0400 Body temperature 97 [degF] Jagjit Matias DO Work Phone: [facility] 08-21-2023 09:36-0400 Body weight 67.59 kg Jagjit Matias DO Work Phone: [facility] 08-21-2023 09:36-0400 Diastolic blood pressure 80 mm[Hg] Jagjit Matias DO Work Phone: [facility] 08-21-2023 09:36-0400 Heart rate 64 /min Jagjit Matias DO Work Phone: [facility] 08-21-2023 09:36-0400 Respiratory rate 16 /min Jagjit Matias DO Work Phone: [facility] 08-21-2023 09:36-0400 Systolic blood pressure 120 mm[Hg] Jagjit Matias DO Work Phone: [facility] 05-05-2023 10:53-0500 Body temperature 98.1 [degF] Jagjit Matias DO Work Phone: [facility] 05-05-2023 10:53-0500 Body weight 68.04 kg Jagjit Matias DO Work Phone: [facility] 05-05-2023 10:53-0500 Diastolic blood pressure 70 mm[Hg] Jagjit Matias DO Work Phone: [facility] 05-05-2023 10:53-0500 Heart rate 80 /min Jagjit Matias DO Work Phone: [facility] 05-05-2023 10:53-0500 Respiratory rate 20 /min Jagjit Matias DO Work Phone: [facility] 05-05-2023 10:53-0500 Systolic blood pressure 124 mm[Hg] Jagjit Matias DO Work Phone: [facility] 10-21-2022 09:20-0400 Body weight 70.67 kg Rick Leong APRN.WOMEN'S BASKETBALL COACH Work Phone: [facility] 10-21-2022 09:20-0400 Diastolic blood pressure 82 mm[Hg] Rick Salo TAXATION INSPECTOR.WOMEN'S BASKETBALL COACH Work Phone: [facility] 10-21-2022 09:20-0400 Heart rate 69 /min Rick Leong TAXATION INSPECTOR.WOMEN'S BASKETBALL COACH Work Phone: [facility] 10-21-2022 09:20-0400 Respiratory rate 16 /min Rick Leong TAXATION INSPECTOR.WOMEN'S BASKETBALL COACH Work Phone: [facility] 10-21-2022 09:20-0400 SaO2% (BldA) [Mass fraction] 97 % Rick Leong TAXATION INSPECTOR.WOMEN'S BASKETBALL COACH Work Phone: [facility] 10-21-2022 09:20-0400 Systolic blood pressure 140 mm[Hg] Rick Leong TAXATION INSPECTOR.WOMEN'S BASKETBALL COACH Work Phone: [facility] 08-11-2022 13:04-0400 Body height 154.9 cm Frank Plata MD Work Phone: [facility] 08-11-2022 13:04-0400 Body mass index (BMI) [Ratio] 29.7 kg/m2 Frank Plata MD Work Phone: [facility] 08-11-2022 13:04-0400 Body temperature 97.5 [degF] Frank Plata MD Work Phone: [facility] 08-11-2022 13:04-0400 Body weight 71.31 kg Frank Plata MD Work Phone: [facility] 07-21-2022 13:18-0400 Body weight 70.31 kg Gunneropher Weight M D Work Phone: [facility] 07-11-2022 08:29-0400 Body temperature 97 [degF] Jagjit Matias DO Work Phone: [facility] 07-11-2022 08:29-0400 Body weight 70.31 kg Jagjit Matias DO Work Phone: [facility] 07-11-2022 08:29-0400 Diastolic blood pressure 88 mm[Hg] Jagjit Matias DO Work Phone: [facility] 07-11-2022 08:29-0400 Heart rate 76 /min Jagjit Matias DO Work Phone: [facility] 07-11-2022 08:29-0400 Respiratory rate 16 /min Jagjit Matias DO Work Phone: [facility] 07-11-2022 08:29-0400 Systolic blood pressure 146 mm[Hg] Jagjit Matias DO Work Phone: [facility] 06-29-2022 14:09-0400 Body height 157.5 cm Pac 9 Work Phone: [facility] 06-29-2022 14:09-0400 Body temperature 98.71 [degF] Pac 9 Work Phone: [facility] 06-29-2022 14:09-0400 Body weight 70.31 kg Pac 9 Work Phone: [facility] 06-29-2022 14:09-0400 Diastolic blood pressure 83 mm[Hg] Pac 9 Work Phone: [facility] 06-29-2022 14:09-0400 Heart rate 78 /min Pac 9 Work Phone: [facility] 06-29-2022 14:09-0400 SaO2% (BldA) [Mass fraction] 96 % Pac 9 Work Phone: [facility] 06-29-2022 14:09-0400 Systolic blood pressure 148 mm[Hg] Pac 9 Work Phone: [facility] 06-29-2022 13:01-0400 Diastolic blood pressure 81 mm[Hg] Anasua Bandyopadhyay PA Work Phone: [facility] 06-29-2022 13:01-0400 Heart rate 72 /min Anasua Bandyopadhyay PA Work Phone: [facility] 06-29-2022 13:01-0400 Systolic blood pressure 149 mm[Hg] Anasua Bandyopadhyay PA Work Phone: [facility] 06-10-2022 13:28-0400 Body weight 71.4 kg Rick Salo TAXATION INSPECTOR.WOMEN'S BASKETBALL COACH Work Phone: [facility] 06-10-2022 13:28-0400 Diastolic blood pressure 80 mm[Hg] Rick Salo TAXATION INSPECTOR.WOMEN'S BASKETBALL COACH Work Phone: [facility] 06-10-2022 13:28-0400 Heart rate 78 /min Rick Salo TAXATION INSPECTOR.WOMEN'S BASKETBALL COACH Work Phone: [facility] 06-10-2022 13:28-0400 Respiratory rate 16 /min Rick Salo TAXATION INSPECTOR.WOMEN'S BASKETBALL COACH Work Phone: [facility] 06-10-2022 13:28-0400 SaO2% (BldA) [Mass fraction] 98 % Rick Salo TAXATION INSPECTOR.WOMEN'S BASKETBALL COACH Work Phone: [facility] 06-10-2022 13:28-0400 Systolic blood pressure 122 mm[Hg] Rick Salo TAXATION INSPECTOR.WOMEN'S BASKETBALL COACH Work Phone: [facility] 06-09-2022 11:03-0400 Body height 160 cm Frank Plata MD Work Phone: [facility] 06-09-2022 11:03-0400 Body mass index (BMI) [Ratio] 27.63 kg/m2 Frank Plata MD Work Phone: [facility] 06-09-2022 11:03-0400 Body weight 70.76 kg Frank Plata MD Work Phone: [facility] 06-02-2022 14:33-0400 Body height 154.9 cm Christopher Weight M D Work Phone: [facility] 06-02-2022 14:33-0400 Body weight 71.65 kg Christopher Weight M D Work Phone: [facility] 06-02-2022 14:33-0400 Diastolic blood pressure 90 mm[Hg] Skylar Smith MD Work Phone: [facility] 06-02-2022 14:33-0400 Heart rate 81 /min Christopher Weight M D Work Phone: [facility] 06-02-2022 14:33-0400 Systolic blood pressure 167 mm[Hg] Skylar Smith MD Work Phone: [facility] 05-03-2022 11:00-0500 Body weight 71.22 kg Ria Gunter TAXATION INSPECTOR.WOMEN'S BASKETBALL COACH Work Phone: [facility] 05-03-2022 11:00-0500 Diastolic blood pressure 80 mm[Hg] Ria Gunter TAXATION INSPECTOR.WOMEN'S BASKETBALL COACH Work Phone: [facility] 05-03-2022 11:00-0500 Heart rate 82 /min Ria Gunter TAXATION INSPECTOR.WOMEN'S BASKETBALL COACH Work Phone: [facility] 05-03-2022 11:00-0500 Respiratory rate 14 /min Ria Gunter TAXATION INSPECTOR.WOMEN'S BASKETBALL COACH Work Phone: [facility] 05-03-2022 11:00-0500 Systolic blood pressure 138 mm[Hg] Ria Gunter TAXATION INSPECTOR.WOMEN'S BASKETBALL COACH Work Phone: [facility] 12-15-2021 13:39-0400 Body height 155 cm Jagjit Matias DO Work Phone: [facility] 12-15-2021 13:39-0400 Body temperature 97.3 [degF] Jagjit Matias DO Work Phone: [facility] 12-15-2021 13:39-0400 Body weight 69.85 kg Jagjit Matias DO Work Phone: [facility] 12-15-2021 13:39-0400 Diastolic blood pressure 80 mm[Hg] Jagjit Matias DO Work Phone: [facility] 12-15-2021 13:39-0400 Heart rate 64 /min Jagjit Matias DO Work Phone: [facility] 12-15-2021 13:39-0400 Respiratory rate 16 /min Jagjit Matias DO Work Phone: [facility] 12-15-2021 13:39-0400 Systolic blood pressure 130 mm[Hg] Jagjit Matias DO Work Phone: [facility] 07-13-2021 09:45-0400 Body temperature 98.01 [degF] Jagjit Matias DO Work Phone: [facility] 07-13-2021 09:45-0400 Body weight 68.49 kg Jagjit Matias DO Work Phone: [facility] 07-13-2021 09:45-0400 Diastolic blood pressure 60 mm[Hg] Jagjit Matias DO Work Phone: [facility] 07-13-2021 09:45-0400 Heart rate 76 /min Jagjit Matias DO Work Phone: [facility] 07-13-2021 09:45-0400 Respiratory rate 16 /min Jagjit Matias DO Work Phone: [facility] 07-13-2021 09:45-0400 Systolic blood pressure 116 mm[Hg] Jagjit Matias DO Work Phone: [facility] 07-06-2021 09:00-0400 Body temperature 98.4 [degF] Justen López MD Work Phone: [facility] 07-06-2021 09:00-0400 Body weight 69.04 kg Justen López MD Work Phone: [facility] 07-06-2021 09:00-0400 Diastolic blood pressure 60 mm[Hg] Justen López MD Work Phone: [facility] 07-06-2021 09:00-0400 Heart rate 77 /min Justen López MD Work Phone: [facility] 07-06-2021 09:00-0400 SaO2% (BldA) [Mass fraction] 97 % Justen López MD Work Phone: [facility] 07-06-2021 09:00-0400 Systolic blood pressure 128 mm[Hg] Justen López MD Work Phone: [facility] 06-15-2021 09:23-0400 Body height 157.5 cm Justen López MD Work Phone: [facility] 06-15-2021 09:23-0400 Body temperature 98.71 [degF] Justen López MD Work Phone: [facility] 06-15-2021 09:23-0400 Body weight 68.86 kg Justen López MD Work Phone: [facility] 06-15-2021 09:23-0400 Diastolic blood pressure 82 mm[Hg] Justen López MD Work Phone: [facility] 06-15-2021 09:23-0400 Heart rate 85 /min Justen López MD Work Phone: [facility] 06-15-2021 09:23-0400 SaO2% (BldA) [Mass fraction] 99 % Justen López MD Work Phone: [facility] 06-15-2021 09:23-0400 Systolic blood pressure 130 mm[Hg] Justen López MD Work Phone: [facility] 05-17-2018 08:54-0500 BMI (Body Mass Index) 26.39 kg/m2 [facility] 05-17-2018 08:54-0500 Body Temperature 98.71 [degF] [facility] 05-17-2018 08:54-0500 Height 160 cm [facility] 05-17-2018 08:54-0500 Weight 67.59 kg [facility] Encounters Encounter Date Encounter Type Care Provider Facility Start: 10-21-2024 ambulatory Jagjit Fox y:[facility] Start: 10-14-2024 End: 10-14-2024 [facility] Zora Hernandes APRN.CNP Work Phone: Urology Comment on above: Other specified diso rders of kidney and ureter (Primary Dx); 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) Start: 10-09-2024 End: 10-09-2024 Telephone encounter Jagjit Matias DO Work Phone: [facility] Comment on above: Orders Start: 10-07-2024 End: 10-07-2024 ambulatory JAGJIT MATIAS Facility:[facility] Start: 10-07-2024 End: 10-07-2024 Patient encounter procedure Jagjit Matias DO Work Phone: [facility] [place] Comment on above: Medicare annual well ness visit, subsequent (Primary Dx); Fatty liver; Vitamin D deficiency; Dyslipidemia; Other iron deficiency anemia; Impaired fasting glucose; Vitamin B 12 deficiency Start: 10-03-2024 End: 10-03-2024 ambulatory EDITH DANIELLE Facility:[facility] Start: 08-22-2024 ambulatory EDITH DANIELLE Facili ty:[facility] Start: 08-22-2024 End: 08-22-2024 Subsequent hospital visit by physician [facility] [place] [facility] Work Phone: Radiology Comment on above: History of renal moses l cancer [Z85.528] Start: 08-09-2024 End: 08-09-2024 ambulatory Rocky Golias PT Work Phone: [facility] Comment on above: Abnormality of gait (Primary Dx); Sprain, gluteus medius, unspecified laterality, subsequent encounter Start: 08-08-2024 End: 08-08-2024 ambulatory Rocky Golias PT Work Phone: [facility] Comment on above: Abnormality of gait (Primary Dx); Sprain, gluteus medius, unspecified laterality, subsequent encounter Start: 07-29-2024 End: 07-29-2024 ambulatory Rocky Golias PT Work Phone: [facility] Comment on above: Abnormality of gait (Primary Dx); Sprain, gluteus medius, unspecified laterality, subsequent encounter Start: 07-26-2024 End: 07-26-2024 ambulatory Rocky Golias PT Work Phone: [facility] Comment on above: Abnormality of gait (Primary Dx); Sprain, gluteus medius, unspecified laterality, subsequent encounter Start: 07-25-2024 End: 07-25-2024 ambulatory Rocky Larose PT Work Phone: [facility] Comment on above: Abnormality of gait (Primary Dx); Sprain, gluteus medius, unspecified laterality, subsequent encounter Start: 07-10-2024 End: 07-10-2024 OT/PT/Speech Visit Rocky Larose PT Work Phone: [facility] Comment on above: Abnormality of gait (Primary Dx); Tear of gluteus medius tendon, unspecified laterality, subsequent encounter; Gait disorder; Sprain, gluteus medius, unspecified laterality, subsequent encounter Start: 06-03-2024 End: 06-03-2024 Follow-up encounter Jagjit Matias DO Work Phone: [facility] [place] Start: 05-30-2024 End: 05-30-2024 ambulatory JAGJIT MATIAS Facility:[facility] Start: 05-30-2024 End: 05-30-2024 Subsequent hospital visit by physician [facility] Comment on above: Encounter for screen ing mammogram for malignant neoplasm of breast [Z12.31] Start: 03-29-2024 End: 03-29-2024 ambulatory JAGJIT MATIAS Facility:[facility] Start: 03-29-2024 End: 03-29-2024 Patient encounter procedure Jagjit Matias DO Work Phone: [facility] [place] Comment on above: Impaired fasting glu cose (Primary Dx); Encounter for screening mammogram for malignant neoplasm of breast; Vitamin D deficiency; Dyslipidemia; Other iron deficiency anemia; Gait disorder; 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); Vitamin B 12 deficiency; Nonrheumatic mitral valve regurgitation; Essential tremor Start: 03-27-2024 End: 03-27-2024 ambulatory KELSEY MANN Facility:[facility] Start: 03-25-2024 End: 03-25-2024 Telephone encounter Jagjit Matias DO Work Phone: [facility] Comment on above: Orders Start: 10-27-2023 Telephone encounter Rick Young APRN.WOMEN'S BASKETBALL COACH Work Phone: [facility] [place] Comment on above: Results Start: 10-26-2023 End: 10-26-2023 ambulatory JAGJIT MATIAS Facility:[facility] Start: 10-26-2023 End: 10-26-2023 Patient encounter procedure Rick Leong TAXATION INSPECTOR.WOMEN'S BASKETBALL COACH Work Phone: [facility] [place] Comment on above: Orthostatic dizzines s (Primary Dx); Dehydration Start: 10-13-2023 E-mail encounter fro m caregiver Moiz Mcgowan TAXATION INSPECTOR.WOMEN'S BASKETBALL COACH Work Phone: [facility] Start: 10-13-2023 Patient encounter procedure Moiz Mcgowan TAXATION INSPECTOR.WOMEN'S BASKETBALL COACH Work Phone: [facility] Comment on above: Actionable Findings - Final Notice Start: 09-28-2023 Refill Jagjit avilez DO Work Phone: [facility] [place] Comment on above: Refill Request Actionable Findings Follow-up Start: 08-21-2023 End: 08-21-2023 Patient encounter procedure Jagjit Matias DO Work Phone: [facility] [place] Comment on above: Tear of gluteus medi us tendon, unspecified laterality, subsequent encounter (Primary Dx); Gait disorder; Fatigue, unspecified type; Vitamin D deficiency; Dyslipidemia; 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); Other iron deficiency anemia; Vitamin B12 deficiency; IFG (impaired fasting glucose) Start: 08-03-2023 Telephone encounter Jagjit martinez DO Work Phone: [facility] [place] Comment on above: Problem with lab ord ers Start: 07-27-2023 End: 07-27-2023 Patient encounter procedure Skylar Smith MD Work Phone: Urology Comment on above: Encounter for follow -up surveillance of kidney cancer (Primary Dx); History of renal cell cancer; H/O partial nephrectomy Start: 07-27-2023 ambulatory Skylar hendrickson MD Work Phone: Urology Start: 07-14-2023 Telephone encounter Jagjit martinez DO Work Phone: [facility] [place] Comment on above: Results Start: 07-12-2023 Telephone encounter Jagjit Isadroa Katty faulknerjoelle DO Work Phone: [facility] Start: 07-12-2023 End: 07-12-2023 Subsequent hospital visit by physician [facility] (I-Stat) Work Phone: Cat Scan Comment on above: Renal mass, right [N 28.89] Start: 05-30-2023 Telephone encounter Jagjit Muir Katty martinez DO Work Phone: [facility] [place] Comment on above: Results Refill Request Start: 05-05-2023 End: 05-05-2023 Patient encounter procedure Jagjit Matias DO Work Phone: [facility] [place] Comment on above: Hyperglycemia (Prima ry Dx); Dyslipidemia; Vitamin D deficiency; Fatigue, unspecified type; Iron deficiency anemia, unspecified iron deficiency anemia type; Renal mass, right; Tremors of nervous system; 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) Start: 04-27-2023 ambulatory Jagjit Isadora Jade avilez DO Work Phone: [facility] [place] Comment on above: Muscle Aches Start: 04-21-2023 E-mail encounter fro m caregiver [facility] Start: 04-21-2023 Patient encounter procedure [facility] Provider [facility] [place] Comment on above: Dr. Matias Appoint ment Start: 02-14-2023 Documentation procedure Mammog dany Coordinator [facility] Start: 02-14-2023 Letter encounter Mammography Coordinator [facility] Department Start: 02-13-2023 End: 02-13-2023 Subsequent hospital visit by physician [facility] Comment on above: Encounter for screen ing mammogram for malignant neoplasm of breast [Z12.31] Start: 11-04-2022 End: 11-04-2022 Subsequent hospital visit by physician [facility] (I-Stat) Work Phone: Cat Scan Comment on above: Leukocytosis, unspec ified type [D72.829] Start: 11-04-2022 Telephone encounter Jagjit Muir Katty faulknerjoelle DO Work Phone: [facility] Comment on above: Results Start: 11-02-2022 Telephone encounter Jagjit Alaniz arrjoelle DO Work Phone: [facility] Comment on above: Medication request f or CT Start: 11-01-2022 Telephone encounter Jagjit martinez DO Work Phone: [facility] [place] Comment on above: Patient Question Start: 10-25-2022 Telephone encounter Jagjit martinez DO Work Phone: [facility] [place] Comment on above: Question Start: 10-21-2022 End: 10-21-2022 Patient encounter procedure Rick Leong TAXATION INSPECTOR.WOMEN'S BASKETBALL COACH Work Phone: [facility] [place] Comment on above: Renal mass, right (P rimary Dx); Acquired cyst of kidney; Other specified disorders of kidney and ureter; Calculus of gallbladder without cholecystitis without obstruction; Leukocytosis, unspecified type; Renal cell carcinoma, unspecified laterality (HCC) Start: 10-10-2022 Telephone encounter Freddie Hua PA-C Work Phone: [facility] Comment on above: CT appt Start: 09-29-2022 Telephone encounter Jagjit martinez DO Work Phone: [facility] [place] Comment on above: fax lab results to [facility] for MRI monday Start: 09-28-2022 Telephone encounter Jagjit martinez DO Work Phone: [facility] [place] Comment on above: Authorization on pro cedure Start: 09-27-2022 Telephone encounter Miracle martinez TAXATION INSPECTOR.WOMEN'S BASKETBALL COACH Work Phone: [facility] [place] Comment on above: Results Start: 09-26-2022 Telephone encounter Miracle martinez TAXATION INSPECTOR.WOMEN'S BASKETBALL COACH Work Phone: [facility] [place] Comment on above: Results Patient Update Start: 09-26-2022 ambulatory SKYLAR Lindsay acility:[facility] Start: 09-26-2022 End: 09-26-2022 Subsequent hospital visit by physician [facility] Comment on above: Elevated white blood cell count, unspecified [D72.829] Leukocytosis, unspec ified type [D72.829] Start: 09-23-2022 Telephone encounter Elliot De Los Santos MD Work Phone: [facility] Comment on above: Results Start: 09-22-2022 ambulatory Jagjit avilez DO Work Phone: [facility] [place] Comment on above: Fatigue; Tremor; Vom iting Start: 08-11-2022 ambulatory JAGJIT MATIAS [facility] Start: 08-11-2022 End: 08-11-2022 Office outpatient visit 15 minutes Frank Plata MD Work Phone: [facility] Comment on above: Bilateral hip pain ( Primary Dx) Start: 07-21-2022 End: 07-21-2022 Patient encounter procedure Skylar Smith MD Work Phone: Urology Comment on above: Renal cell carcinoma , unspecified laterality (HCC) (Primary Dx) Start: 07-11-2022 End: 07-11-2022 Patient encounter procedure Jagjit Matias DO Work Phone: [facility] [place] Comment on above: Dermatitis contact ( Primary Dx); Renal mass, right; Generalized abdominal pain; Vitamin B12 deficiency; Other iron deficiency anemia; Vitamin D deficiency; Hyperglycemia; Dyslipidemia Start: 06-29-2022 End: 06-29-2022 Admission to establishment [facility] Work Phone: [facility] Start: 06-29-2022 End: 06-29-2022 Preprocedural examination done Pacc Main 9 Work Phone: Pre Anesthesia Start: 06-29-2022 End: 06-29-2022 [address] Work Phone: Pre Anesthesia Comment on above: Pre-op evaluation (P rimary Dx); Essential tremor; Nonrheumatic mitral valve regurgitation; Gastroesophageal reflux disease without esophagitis Start: 06-29-2022 Telephone encounter Jagjit faulknerjoelle DO Work Phone: [facility] [place] Comment on above: Results Start: 06-29-2022 End: 06-29-2022 Patient encounter procedure Anamariajose Bandyopadhyay VICKIE Work Phone: Urology Comment on above: Renal mass (Primary Dx); Pre-op testing Start: 06-29-2022 End: 06-29-2022 Patient encounter status Melchor Perez VICKIE Work Phone: Urology Start: 06-23-2022 ambulatory FRANK PLATA [facility] Start: 06-23-2022 End: 06-23-2022 Subsequent hospital visit by physician Frank Plata MD Work Phone: [facility] Comment on above: Arrived Start: 06-16-[address] rendon TAXATION INSPECTOR.WOMEN'S BASKETBALL COACH Work Phone: [facility] [place] Comment on above: Results; Appointment Start: 06-16-2022 End: 06-16-2022 Subsequent hospital visit by physician [facility] Work Phone: Radiology Comment on above: Renal mass, right [N 28.89] Start: 06-13-2022 Telephone encounter Jagjit martinez DO Work Phone: [facility] [place] Comment on above: 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 Start: 06-10-2022 End: 06-10-2022 Patient encounter procedure Rick Ervinutzman TAXATION INSPECTOR.WOMEN'S BASKETBALL COACH Work Phone: Family [facility] [place] Comment on above: Generalized abdomina l pain (Primary Dx); Calculus of gallbladder without cholecystitis without obstruction; Nausea; Renal mass, right Start: 06-09-2022 ambulatory Ana Maria Berg RN [facility] & Start: 06-09-2022 End: 06-09-2022 Office outpatient visit 25 minutes Frank Plata MD Work Phone: [facility] Comment on above: Pain in prosthetic j oint, sequela (Primary Dx); Left hip pain Start: 06-09-2022 End: 06-09-2022 Subsequent hospital visit by physician Frank Plata MD Work Phone: [facility] Start: 06-08-2022 Telephone encounter Jagjit martinez DO Work Phone: [facility] [place] Comment on above: Patient Update Start: 06-02-2022 End: 06-02-2022 Patient encounter procedure Skylar Smith MD Work Phone: Urology Comment on above: Renal mass (Primary Dx); Other specified disorders of kidney and ureter Start: 06-02-2022 ambulatory Skylar hendrickson MD Work Phone: Urology Start: 05-23-2022 Telephone encounter Jagjit Isadora G arrison DO Work Phone: [facility] [place] Comment on above: Question Start: 05-19-2022 Telephone encounter Jagjit L G arrison DO Work Phone: [facility] [place] Comment on above: Results Start: 05-16-2022 Telephone encounter Jagjit Isadora Alaniz arrison DO Work Phone: [facility] [place] Comment on above: New Medication Start: 05-11-2022 Telephone encounter Jagjit Alaniz arrison DO Work Phone: [facility] [place] Comment on above: Results Start: 05-06-2022 Telephone encounter Ria christian TAXATION INSPECTOR.WOMEN'S BASKETBALL COACH Work Phone: [facility] [place] Comment on above: Results Start: 05-05-2022 Telephone encounter Ria christian TAXATION INSPECTOR.WOMEN'S BASKETBALL COACH Work Phone: [facility] [place] Comment on above: Results Start: 05-03-2022 End: 05-03-2022 Subsequent hospital visit by physician Bj [facility] [place] Work Phone: Radiology Comment on above: Right sided abdomina l pain [R10.9] Start: 05-03-2022 End: 05-03-2022 Patient encounter procedure Ria Gunter TAXATION INSPECTOR.WOMEN'S BASKETBALL COACH Work Phone: [facility] [place] Comment on above: Right sided abdomina l pain (Primary Dx) Start: 02-23-2022 Telephone encounter Kelsey griffith TAXATION INSPECTOR.WOMEN'S BASKETBALL COACH Work Phone: [facility] [place] Comment on above: Results Start: 02-16-2022 Telephone encounter Jagjit Alaniz arrison DO Work Phone: [facility] [place] Comment on above: Patient Question; Or ders Start: 01-05-2022 Documentation procedure Mammog dany Coordinator [facility] Start: 01-05-2022 Letter encounter Mammography Coordinator [facility] Department Start: 01-05-2022 Telephone encounter Rick Young EDGARDOEleniMAYA Work Phone: [facility] [place] Comment on above: Results Start: 01-05-2022 End: 01-05-2022 Subsequent hospital visit by physician Screen Mammo [facility]ogram Comment on above: Visit for screening mammogram [Z12.31] Start: 12-15-2021 End: 12-15-2021 Patient encounter procedure Jagjit Matias DO Work Phone: [facility] [place] Comment on above: Vitamin B12 deficien cy (Primary Dx); Other iron deficiency anemia; Vitamin D deficiency; Nonrheumatic mitral valve regurgitation; Left hip pain; Antalgic gait; History of hip replacement, total, left; Limping; Fatigue, unspecified type; Essential tremor Start: 12-13-2021 Orders Only Jagjit avilez DO Work Phone: [facility] Comment on above: Visit for screening mammogram (Primary Dx) Start: 07-13-2021 End: 07-13-2021 Patient encounter procedure Jagjit Matias DO Work Phone: [facility] [place] Comment on above: Other iron deficienc y anemia (Primary Dx); Vitamin B12 deficiency; VANDA (acute kidney injury) (HCC); Hyperglycemia; Foot pain, bilateral; Left hip pain; History of hip replacement, total, left Start: 07-06-2021 End: 07-06-2021 Patient encounter procedure Justen López MD Work Phone: General Surgery Comment on above: Blood in stool (Prim randall Dx); Gastrointestinal hemorrhage with melena Start: 06-15-2021 Telephone encounter Lisa lindsay PA-C Work Phone: General Surgery Comment on above: 06-24-2021 [facility]ON [facility] Start: 06-15-2021 End: 06-15-2021 Patient encounter procedure Justen López MD Work Phone: General Surgery Comment on above: Gastrointestinal hem orrhage with melena (Primary Dx) Start: 06-02-2021 Telephone encounter Jagjit martinez DO Work Phone: [facility] [place] Comment on above: Results Start: 05-08-2021 Telephone encounter Jagjit martinez DO Work Phone: [facility] [place] Comment on above: Patient Question; Pa tient Update Start: 08-04-2020 End: 08-04-2020 Subsequent hospital visit by physician Bj [facility] [place] Work Phone: Radiology Comment on above: Left hip pain [M25.5 52] Start: 06-19-2018 End: 06-20-2018 Evaluation and management of inpatient [facility] Start: 05-17-2018 End: 05-17-2018 Letter encounter Provider Concepcion [facility] Start: 05-17-2018 End: 05-17-2018 Patient encounter procedure Frank Plata Work Phone: [facility] Start: 05-17-2018 End: 05-17-2018 Office outpatient visit 15 minutes Frank Boni Work Phone: [facility] Comment on above: Hx of total hip arth roplasty, left (Primary Dx) Start: 10-10-2017 Patient encounter AUNDREA MANN [facility] Procedures Date Procedure Procedure Detail Performing Clinician Start: 08-21-2023 Adult depression screening assessment Moiz Mcgowan TAXATION INSPECTOR.WOMEN'S BASKETBALL COACH Work Phone: Start: 07-27-2023 Urnls dip stick/tablet reagent auto microscopy Bulk Order Provider Start: 11-04-2022 Ct abdomen w/o & w/contrast material Rick Leong APRN.WOMEN'S BASKETBALL COACH Work Phone: Start: 09-26-2022 Ct abdomen & pelvis w/contrast material Skylar De Los Santos MD Work Phone: Start: 06-29-2022 Urnls dip stick/tablet reagent auto microscopy Bulk Order Provider Start: 06-16-2022 Us abdominal real time w/image documentation Rick Leong APRN.WOMEN'S BASKETBALL COACH Work Phone: Start: 06-02-2022 Urnls dip stick/tablet reagent auto microscopy Bulk Order Provider Start: 05-03-2022 Radiologic exam abdomen 1 view Ria Gunter APRN.WOMEN'S BASKETBALL COACH Work Phone: Start: 01-05-2022 Screening mammography bi 2-view breast inc cad Jagjit Matias DO Work Phone: Start: 06-24-2021 Colonoscopy Jagjit Matias DO Work Phone: Start: 08-04-2020 Radex hips bilateral with pelvis minimum 5 views Jagjit Matias DO Work Phone: Start: 08-04-2020 Adult depression screening assessment Jagjit Matias [employer] Work Phone: Start: 07-30-2018 H/O: artificial joint Status post replacement of left shoulder joint Jagjit [employer] Work Phone: Start: 06-19-2018 H/O: artificial joint Status post total shoulder arthroplasty Jagjit [employer] Work Phone: Start: 06-04-2018 Antibody screen TAYLOR WILLIAMSON Plan of Treatment Date Care Activity Detail Author Start: 06-25-2031 Colonoscopy COLONOSCOPY [facility] Start: 06-25-2031 COLORECTAL CANCER SCREENING COLORECTAL CANCER SCREENING [facility] Start: 06-25-2031 Screening for malign ant neoplasm of colon [facility] Start: 10-04-2027 Diabetes Screening Diabetes Screenin [facility] Start: 03-27-2027 Diabetes Screening Diabetes Screenin [facility] Start: 10-25-2026 Diabetes Screening Diabetes Screenin g [facility] Start: 08-16-2026 Diabetes Screening Diabetes Screenin g [facility] Start: 04-17-2026 Diabetes Screening Diabetes Screenin g [facility] Start: 09-22-2025 DIABETES SCREEN DIABETES SCREEN [facility] Start: 09-22-2025 Diabetes Screening Diabetes Screenin g [facility] Start: 07-07-2025 DIABETES SCREEN DIABETES SCREEN [facility] Start: 06-29-2025 DIABETES SCREEN DIABETES SCREEN [facility] Start: 05-03-2025 DIABETES SCREEN DIABETES SCREEN [facility] Start: 04-09-2025 End: 04-09-2025 Patient encounter procedure 04/09/2025 10:00 AM EST Office Visit [facility] [address] [place] [address] Jagjit Matias DO [address] [place] [address] 6 month follow up Family Medicine [place] Comment on above: 6 month follow up Start: 03-29-2025 Covid-19 Vaccine ( season) Covid-19 Vaccine () [facility] Comment on above: Postponed from 11/11 (Declined at this time) Start: 02-21-2025 DIABETES SCREEN DIABETES SCREEN [facility] Start: 11-11-2024 Influenza vaccination C [facility] Start: 10-15-2024 End: 10-15-2024 ambulatory 10/15/2024 2:15 PM EDT [facility] [address] [address] Skylar Smith MD [address] [place] [address] Image Review-Patient requested a web appt due to distance. Urology Comment on above: Image Review-Patient requested a web appt due to distance. Start: 10-14-2024 End: 10-14-2024 ambulatory 10/14/2024 2:00 PM EDT [facility] [address] [address] Zora Hernandes APRN.WOMEN'S BASKETBALL COACH [address] [place] [address] Image Review-Patient requested a web appt due to distance. Urology Comment on above: Image Review-Patient requested a web appt due to distance. Start: 10-07-2024 End: 01-06-2025 25-hydroxyvitamin D3 [Mass/volume] in Serum or Plasma VITAMIN D 25 HYDROXY Lab Routine Vitamin D deficiency Expected: 10/07/2024, Expires: 01/06/2025 [facility] Comment on above: Expected: 10/07/2024 , Expires: 01/06/2025 Start: 10-07-2024 End: 01-06-2025 CBC W Auto Differential panel - Blood COMPLETE BLOOD COUNT AND DIFFERENTIAL Lab Routine Other iron deficiency anemia Impaired fasting glucose Expected: 10/07/2024, Expires: 01/06/2025 [facility] Comment on above: Expected: 10/07/2024 , Expires: 01/06/2025 Start: 10-07-2024 End: 01-06-2025 Cobalamin (Vitamin B12) [Mass/volume] in Serum or Plasma VITAMIN B12 Lab Routine Vitamin B 12 deficiency Expected: 10/07/2024, Expires: 01/06/2025 [facility] Comment on above: Expected: 10/07/2024 , Expires: 01/06/2025 Start: 10-07-2024 End: 01-06-2025 Ferritin [Mass/volume] in Serum or Plasma FERRITIN Lab Routine Other iron deficiency anemia Expected: 10/07/2024, Expires: 01/06/2025 [facility] Comment on above: Expected: 10/07/2024 , Expires: 01/06/2025 Start: 10-07-2024 End: 01-06-2025 Hemoglobin A1c in Blood HEMOGLOBIN A1C Lab Routine Impaired fasting glucose Expected: 10/07/2024, Expires: 01/06/2025 [facility] Comment on above: Expected: 10/07/2024 , Expires: 01/06/2025 Start: 10-07-2024 End: 01-06-2025 Hepatic function 2000 panel - Serum or Plasma HEPATIC FUNCTION PNL Lab Routine Fatty liver Expected: 10/07/2024, Expires: 01/06/2025 [facility] Comment on above: Expected: 10/07/2024 , Expires: 01/06/2025 Start: 10-07-2024 End: 01-06-2025 Iron and Iron binding capacity panel - Serum or Plasma IRON AND TIBC Lab Routine Other iron deficiency anemia Expected: 10/07/2024, Expires: 01/06/2025 [facility] Comment on above: Expected: 10/07/2024 , Expires: 01/06/2025 Start: 10-07-2024 End: 01-06-2025 Lipid 1996 panel - Serum or Plasma LIPID PANEL, FASTING Lab Routine Dyslipidemia Expected: 10/07/2024, Expires: 01/06/2025 [facility] Comment on above: Expected: 10/07/2024 , Expires: 01/06/2025 Start: 10-07-2024 End: 10-07-2024 Patient encounter procedure 10/07/2024 7:40 AM EDT Office Visit [facility] [place] [address] [facility], [place] [address] Jagjit Matias DO [address] [place] [address] Medicare Wellness (Reschedule from 09/27/24 to 10/07/24) [facility] [place] Comment on above: Medicare Wellness (R eschedule from 09/27/24 to 10/07/24) Start: 09-27-2024 End: 09-27-2024 Patient encounter procedure 09/27/2024 9:00 AM EDT Office Visit [facility] [place] [address] [facility] [place] [address] Jagjit Matias DO [address] [facility], [place] [id number] Physical [facility] [place] Comment on above: Physical Start: 09-09-2024 Influenza vaccination Influenza Vacc ine (#1) [facility] Comment on above: Postponed from 11/11 (Declined at this time) Start: 08-28-2024 End: 08-28-2024 ambulatory 08/28/2024 10:00 AM EDT [facility] [address] [place] [address] Rocky Larose PT [address] [place] [address] S76.019D (ICD-10-CM) - Tear of gluteus medius tendon, unspecified laterality, [facility] Comment on above: S76.019D (ICD-10-CM) - Tear of gluteus medius tendon, unspecified laterality, subsequent encounter Start: 08-26-2024 End: 08-26-2024 ambulatory 08/26/2024 9:30 AM EDT OT/PT/Speech Visit [facility] [address] [place] [address] Jana Og, [employer] [address] [place] [address] S76.019D (ICD-10-CM) - Tear of gluteus medius tendon, unspecified laterality, subsequent encounter [facility] Comment on above: S76.019D (ICD-10-CM) - Tear of gluteus medius tendon, unspecified laterality, subsequent encounter Start: 08-22-2024 End: 08-22-2024 Patient encounter procedure Radiology Comment on above: Kidney cancer, monit or Start: 08-21-2024 End: 08-21-2024 ambulatory 08/21/2024 10:00 AM EDT OT/PT/Speech Visit [facility] [address] [place] [address] Rocky Larose, PT [address] [place] [address] S76.019D (ICD-10-CM) - Tear of gluteus medius tendon, unspecified laterality, subsequent encounter [facility] Comment on above: S76.019D (ICD-10-CM) - Tear of gluteus medius tendon, unspecified laterality, subsequent encounter Start: 08-20-2024 Anxiety Screening Anxiety Screening [facility] Start: 08-20-2024 Depression Screening Depression Scre endee [facility] Start: 08-19-2024 End: 08-19-2024 ambulatory 08/19/2024 9:30 AM EDT OT/PT/Speech Visit [facility] [address] [place] [address] Jana Og, [employer] [address] [place] [address] S76.019D (ICD-10-CM) - Tear of gluteus medius tendon, unspecified laterality, subsequent encounter [facility] Comment on above: S76.019D (ICD-10-CM) - Tear of gluteus medius tendon, unspecified laterality, subsequent encounter Start: 08-14-2024 End: 08-14-2024 ambulatory 08/14/2024 10:00 AM EDT OT/PT/Speech Visit [facility] [address] [place] [address] Golias, Rocky, PT [address] [place] [address] S76.019D (ICD-10-CM) - Tear of gluteus medius tendon, unspecified laterality, subsequent encounter [facility] Comment on above: S76.019D (ICD-10-CM) - Tear of gluteus medius tendon, unspecified laterality, subsequent encounter Start: 08-12-2024 End: 08-12-2024 ambulatory 08/12/2024 10:30 AM EDT OT/PT/Speech Visit [facility] [address] [place] [address] Golias, Rocky, PT [address] [place] [address] S76.019D (ICD-10-CM) - Tear of gluteus medius tendon, unspecified laterality, subsequent encounter [facility] Comment on above: S76.019D (ICD-10-CM) - Tear of gluteus medius tendon, unspecified laterality, subsequent encounter Start: 08-09-2024 End: 08-09-2024 ambulatory 08/09/2024 11:15 AM EDT OT/PT/Speech Visit [facility] [address] [place] [address] Golias, Rocky, PT [address] [place] [address] S76.019D (ICD-10-CM) - Tear of gluteus medius tendon, unspecified laterality, subsequent encounter [facility] Comment on above: S76.019D (ICD-10-CM) - Tear of gluteus medius tendon, unspecified laterality, subsequent encounter Start: 08-06-2024 End: 08-06-2024 ambulatory 08/06/2024 2:45 PM EDT OT/PT/Speech Visit [facility] [address] [place] [address] Rocky Larose, PT [address] [place] [address] S76.019D (ICD-10-CM) - Tear of gluteus medius tendon, unspecified laterality, subsequent encounter [facility] Comment on above: S76.019D (ICD-10-CM) - Tear of gluteus medius tendon, unspecified laterality, subsequent encounter Start: 07-31-2024 End: 07-31-2024 ambulatory 07/31/2024 3:30 PM EDT OT/PT/Speech Visit [facility] [address] [place] [address] Jana Og, [employer] [address] [place] [address] S76.019D (ICD-10-CM) - Tear of gluteus medius tendon, unspecified laterality, subsequent encounter [facility] Comment on above: S76.019D (ICD-10-CM) - Tear of gluteus medius tendon, unspecified laterality, subsequent encounter Start: 07-29-2024 End: 07-29-2024 ambulatory 07/29/2024 2:45 PM EDT OT/PT/Speech Visit [facility] [address] [place] [address] Jana Og, [employer] [address] [place] [address] S76.019D (ICD-10-CM) - Tear of gluteus medius tendon, unspecified laterality, subsequent encounter [facility] Comment on above: S76.019D (ICD-10-CM) - Tear of gluteus medius tendon, unspecified laterality, subsequent encounter Start: 07-26-2024 End: 07-26-2024 ambulatory 07/26/2024 3:00 PM EDT OT/PT/Speech Visit [facility] [address] [place] [address] Rocky Larose, PT [address] [place] [address] S76.019D (ICD-10-CM) - Tear of gluteus medius tendon, unspecified laterality, subsequent encounter [facility] Comment on above: S76.019D (ICD-10-CM) - Tear of gluteus medius tendon, unspecified laterality, subsequent encounter Start: 07-26-2024 End: 10-25-2024 Basic metabolic 2000 panel - Serum or Plasma BASIC METABOLIC PANEL Lab Routine History of renal cell cancer Expected: 07/26/2024 (Approximate), Expires: 10/25/2024 [facility] Work Phone: Comment on above: Expected: 07/26/2024 (Approximate), Expires: 10/25/2024 Start: 07-24-2024 End: 07-24-2024 ambulatory 07/24/2024 3:30 PM EDT OT/PT/Speech Visit [facility] [address] [place] [address] Jana Og, [employer] [address] [place] [address] S76.019D (ICD-10-CM) - Tear of gluteus medius tendon, unspecified laterality, subsequent encounter [facility] Comment on above: S76.019D (ICD-10-CM) - Tear of gluteus medius tendon, unspecified laterality, subsequent encounter Start: 07-22-2024 End: 07-22-2024 ambulatory 07/22/2024 3:30 PM EDT OT/PT/Speech Visit [facility] [address] [place] [address] Jana Og, [employer] [address] [place] [address] S76.019D (ICD-10-CM) - Tear of gluteus medius tendon, unspecified laterality, subsequent encounter [facility] Comment on above: S76.019D (ICD-10-CM) - Tear of gluteus medius tendon, unspecified laterality, subsequent encounter Start: 07-13-2024 DIABETES SCREEN DIABETES SCREEN [facility] Start: 05-12-2024 DIABETES SCREEN DIABETES SCREEN [facility] Start: 03-29-2024 End: 03-29-2024 Patient encounter procedure 03/29/2024 12:20 PM EST Office Visit [facility] [place] [address] [place] [address] Jagjit Matias DO [address] [place] [address] 3 month follow up [facility] [place] Comment on above: 3 month follow up Start: 03-25-2024 End: 06-24-2024 25-hydroxyvitamin D3 [Mass/volume] in Serum or Plasma VITAMIN D 25 HYDROXY Lab Routine Vitamin D deficiency Expected: 03/25/2024, Expires: 06/24/2024 [facility] Comment on above: Expected: 03/25/2024 , Expires: 06/24/2024 Start: 03-25-2024 End: 06-24-2024 CBC panel - Blood by Automated count COMPLETE BLOOD COUNT Lab Routine Other iron deficiency anemia Expected: 03/25/2024, Expires: 06/24/2024 [facility] Comment on above: Expected: 03/25/2024 , Expires: 06/24/2024 Start: 03-25-2024 End: 06-24-2024 Cobalamin (Vitamin B12) [Mass/volume] in Serum or Plasma VITAMIN B12 Lab Routine Vitamin B 12 deficiency Expected: 03/25/2024, Expires: 06/24/2024 [facility] Comment on above: Expected: 03/25/2024 , Expires: 06/24/2024 Start: 03-25-2024 End: 06-24-2024 Comprehensive metabolic 2000 panel - Serum or Plasma COMPREHENSIVE METABOLIC PANEL Lab Routine Dyslipidemia Expected: 03/25/2024, Expires: 06/24/2024 [facility] Comment on above: Expected: 03/25/2024 , Expires: 06/24/2024 Start: 03-25-2024 End: 06-24-2024 Hemoglobin A1c in Blood HEMOGLOBIN A1C Lab Routine Impaired fasting glucose Expected: 03/25/2024, Expires: 06/24/2024 [facility] Work Phone: Comment on above: Expected: 03/25/2024 , Expires: 06/24/2024 Start: 03-25-2024 End: 06-24-2024 Iron and Iron binding capacity panel - Serum or Plasma IRON AND TIBC Lab Routine Other iron deficiency anemia Expected: 03/25/2024, Expires: 06/24/2024 [facility] Comment on above: Expected: 03/25/2024 , Expires: 06/24/2024 Start: 03-13-2024 Advance Directive Discussion Advance Directive Discussion [facility] Start: 03-13-2024 Medicare Advantage A nnual Wellness Visit Medicare Advantage Annual Wellness Visit [facility] Start: 02-13-2024 End: 02-13-2024 Patient encounter procedure 02/13/2024 12:00 PM EST Office Visit Family [facility] [address] [facility] [place] [address] Jagjit Matias DO [address] [facility] [place] [address] 3 month follow up Family [facility] Comment on above: 3 month follow up Start: 12-01-2023 End: 12-01-2023 Patient encounter procedure 12/01/2023 10:00 AM EDT Office Visit Family [facility] [address] [place] [address] Jagjit Matias DO [address] [place] [address] 3 month follow up Family [facility] [place] Comment on above: 3 month follow up Start: 11-21-2023 End: 02-20-2024 25-hydroxyvitamin D3 [Mass/volume] in Serum or Plasma VITAMIN D 25 HYDROXY Lab Routine Vitamin D deficiency Expected: 11/21/2023, Expires: 02/20/2024 [facility] Comment on above: Expected: 11/21/2023 , Expires: 02/20/2024 Start: 11-21-2023 End: 02-20-2024 CBC panel - Blood by Automated count COMPLETE BLOOD COUNT Lab Routine Other iron deficiency anemia Expected: 11/21/2023, Expires: 02/20/2024 [facility] Work Phone: Comment on above: Expected: 11/21/2023 , Expires: 02/20/2024 Start: 11-21-2023 End: 02-20-2024 Cobalamin (Vitamin B12) [Mass/volume] in Serum or Plasma VITAMIN B12 Lab Routine Vitamin B12 deficiency Expected: 11/21/2023, Expires: 02/20/2024 [facility] Comment on above: Expected: 11/21/2023 , Expires: 02/20/2024 Start: 11-21-2023 End: 02-20-2024 Comprehensive metabolic 2000 panel - Serum or Plasma COMPREHENSIVE METABOLIC PANEL Lab Routine Dyslipidemia Expected: 11/21/2023, Expires: 02/20/2024 [facility] Comment on above: Expected: 11/21/2023 , Expires: 02/20/2024 Start: 11-21-2023 End: 02-20-2024 Hemoglobin A1c in Blood HEMOGLOBIN A1C Lab Routine IFG (impaired fasting glucose) Expected: 11/21/2023, Expires: 02/20/2024 [facility] Comment on above: Expected: 11/21/2023 , Expires: 02/20/2024 Start: 11-21-2023 End: 02-20-2024 Iron and Iron binding capacity panel - Serum or Plasma IRON AND TIBC Lab Routine Other iron deficiency anemia Expected: 11/21/2023, Expires: 02/20/2024 [facility] Comment on above: Expected: 11/21/2023 , Expires: 02/20/2024 Start: 11-12-2023 Covid-19 Vaccine ( season) Covid-19 Vaccine () [facility] Start: 11-12-2023 Influenza vaccination C [facility] Start: 10-26-2023 End: 01-25-2024 Comprehensive metabolic 2000 panel - Serum or Plasma [facility] Work Phone: Comment on above: Expected: 10/26/2023 , Expires: 01/25/2024 Start: 10-26-2023 End: 01-25-2024 Ferritin [Mass/volume] in Serum or Plasma [facility] Comment on above: Expected: 10/26/2023 , Expires: 01/25/2024 Start: 10-26-2023 End: 01-25-2024 Iron and Iron binding capacity panel - Serum or Plasma [facility] Comment on above: Expected: 10/26/2023 , Expires: 01/25/2024 Start: 09-27-2023 FECAL OCCULT BLOOD FECAL OCCULT BLOO D [facility] Start: 09-27-2023 Screening for malign ant neoplasm of colon Fecal Occult Blood [facility] Start: 09-11-2023 End: 12-11-2023 25-hydroxyvitamin D3 [Mass/volume] in Serum or Plasma VITAMIN D 25 HYDROXY Lab Routine Vitamin D deficiency Expected: 09/11/2023, Expires: 12/11/2023 [facility] Comment on above: Expected: 09/11/2023 , Expires: 12/11/2023 Start: 09-11-2023 End: 12-11-2023 Cobalamin (Vitamin B12) [Mass/volume] in Serum or Plasma VITAMIN B12 Lab Routine Fatigue, unspecified type Expected: 09/11/2023, Expires: 12/11/2023 [facility] Comment on above: Expected: 09/11/2023 , Expires: 12/11/2023 Start: 09-10-2023 Influenza vaccination Influenza Vacc ine (#1) [facility] Comment on above: Postponed from 11/11 (Declined at this time) Start: 08-21-2023 End: 08-21-2023 Patient encounter procedure 08/21/2023 9:40 AM EDT Office Visit Family Medicine Michelle [address] [place] [address] Jagjit Matias DO [address] [place] [address] 3 month follow up [facility] Comment on above: 3 month follow up Start: 08-11-2023 End: 09-11-2023 Hemoglobin A1c in Blood HEMOGLOBIN A1C Lab Routine Hyperglycemia Expected: 08/11/2023, Expires: 09/11/2023 [facility] Work Phone: Comment on above: Expected: 08/11/2023 , Expires: 09/11/2023 Start: 08-04-2023 End: 09-11-2023 Lipid 1996 panel - Serum or Plasma LIPID PANEL BASIC Lab Routine Dyslipidemia Expected: 08/04/2023, Expires: 09/11/2023 [facility] Comment on above: Expected: 08/04/2023 , Expires: 09/11/2023 Start: 07-27-2023 End: 07-27-2023 Patient encounter procedure 07/27/2023 4:45 PM EDT Office Visit Urology [address] [id number] Luis, MD Skylar [address] [place], [place] [id number] F/U, Renal cell carcinoma, unspecified laterality (HCC) and to review test results. Urology Comment on above: F/U, Renal cell carc inoma, unspecified laterality (HCC) and to review test results. Start: 07-22-2023 End: 09-21-2023 Basic metabolic 2000 panel - Serum or Plasma BASIC METABOLIC PNL Lab Routine Renal cell carcinoma, unspecified laterality (HCC) Expected: 07/22/2023 (Approximate), Expires: 09/21/2023 [facility] Work Phone: Comment on above: Expected: 07/22/2023 (Approximate), Expires: 09/21/2023 Start: 07-22-2023 End: 09-21-2023 CBC panel - Blood by Automated count CBC Lab Routine Renal cell carcinoma, unspecified laterality (HCC) Expected: 07/22/2023 (Approximate), Expires: 09/21/2023 [facility] Work Phone: Comment on above: Expected: 07/22/2023 (Approximate), Expires: 09/21/2023 Start: 07-22-2023 End: 08-20-2023 Ct abdomen w/contrast material CT ABDOMEN W IVCON Radiology Routine Renal cell carcinoma, unspecified laterality (HCC) Expected: 07/22/2023 (Approximate), Expires: 08/20/2023 [facility] Work Phone: Comment on above: Expected: 07/22/2023 (Approximate), Expires: 08/20/2023 Start: 07-12-2023 COVID-19 VACCINE (#1) COVID-19 VACCI NE (#1) [facility] Comment on above: Postponed from 03/10 (Declined at this time) Start: 05-30-2023 End: 08-29-2023 CREATININE, ISTAT CREATININE, ISTAT Lab Routine Renal mass, right Expected: 05/30/2023, Expires: 08/29/2023 [facility] Work Phone: Comment on above: Expected: 05/30/2023 , Expires: 08/29/2023 Start: 05-05-2023 End: 08-04-2023 25-hydroxyvitamin D3 [Mass/volume] in Serum or Plasma VITAMIN D 25 HYDROXY Lab Routine Vitamin D deficiency Expected: 05/05/2023, Expires: 08/04/2023 [facility] Work Phone: Comment on above: Expected: 05/05/2023 , Expires: 08/04/2023 Start: 05-05-2023 End: 08-04-2023 Cobalamin (Vitamin B12) [Mass/volume] in Serum or Plasma VITAMIN B12 BLOOD Lab Routine Fatigue, unspecified type Expected: 05/05/2023, Expires: 08/04/2023 [facility] Work Phone: Comment on above: Expected: 05/05/2023 , Expires: 08/04/2023 Start: 05-05-2023 End: 08-04-2023 Hemoglobin A1c in Blood HGB A1C Lab Routine Hyperglycemia Expected: 05/05/2023, Expires: 08/04/2023 [facility] Work Phone: Comment on above: Expected: 05/05/2023 , Expires: 08/04/2023 Start: 05-05-2023 End: 08-04-2023 Lipid 1996 panel - Serum or Plasma LIPID PANEL BASIC Lab Routine Dyslipidemia Expected: 05/05/2023, Expires: 08/04/2023 [facility] Work Phone: Comment on above: Expected: 05/05/2023 , Expires: 08/04/2023 Start: 03-13-2023 Advance Directive Discussion Advance Directive Discussion [facility] Start: 03-13-2023 Behavioral Health Screening Behavioral Health Screening [facility] Start: 03-13-2023 Depression Assessment Depression Ass essment [facility] Start: 01-14-2023 End: 03-16-2023 25-hydroxyvitamin D3 [Mass/volume] in Serum or Plasma VITAMIN D 25 HYDROXY Lab Routine Vitamin D deficiency Expected: 01/14/2023, Expires: 03/16/2023 [facility] Work Phone: Comment on above: Expected: 01/14/2023 , Expires: 03/16/2023 Start: 01-14-2023 End: 03-16-2023 CBC panel - Blood by Automated count CBC Lab Routine Dyslipidemia Expected: 01/14/2023, Expires: 03/16/2023 [facility] Work Phone: Comment on above: Expected: 01/14/2023 , Expires: 03/16/2023 Start: 01-14-2023 End: 03-16-2023 Cobalamin (Vitamin B12) [Mass/volume] in Serum or Plasma VITAMIN B12 BLOOD Lab Routine Vitamin B12 deficiency Expected: 01/14/2023, Expires: 03/16/2023 [facility] Work Phone: Comment on above: Expected: 01/14/2023 , Expires: 03/16/2023 Start: 01-14-2023 End: 03-16-2023 Comprehensive metabolic 2000 panel - Serum or Plasma COMP METABOLIC PANEL Lab Routine Dyslipidemia Expected: 01/14/2023, Expires: 03/16/2023 [facility] Work Phone: Comment on above: Expected: 01/14/2023 , Expires: 03/16/2023 Start: 01-14-2023 End: 03-16-2023 Ferritin [Mass/volume] in Serum or Plasma FERRITIN BLD Lab Routine Other iron deficiency anemia Expected: 01/14/2023, Expires: 03/16/2023 [facility] Work Phone: Comment on above: Expected: 01/14/2023 , Expires: 03/16/2023 Start: 01-14-2023 End: 03-16-2023 Hemoglobin A1c in Blood HGB A1C Lab Routine Hyperglycemia Expected: 01/14/2023, Expires: 03/16/2023 [facility] Work Phone: Comment on above: Expected: 01/14/2023 , Expires: 03/16/2023 Start: 01-14-2023 End: 03-16-2023 Iron and Iron binding capacity panel - Serum or Plasma IRON + TIBC Lab Routine Other iron deficiency anemia Expected: 01/14/2023, Expires: 03/16/2023 [facility] Work Phone: Comment on above: Expected: 01/14/2023 , Expires: 03/16/2023 Start: 01-14-2023 End: 03-16-2023 Lipid 1996 panel - Serum or Plasma LIPID PANEL BASIC Lab Routine Dyslipidemia Expected: 01/14/2023, Expires: 03/16/2023 [facility] Work Phone: Comment on above: Expected: 01/14/2023 , Expires: 03/16/2023 Start: 11-11-2022 Covid-19 Vaccine () Covid-19 Vaccine () [facility] Start: 11-11-2022 Influenza vaccination [facility] Start: 09-26-2022 End: 11-26-2022 Bacteria identified in Urine by Culture URINE CULTURE Microbiology Routine Leukocytosis, unspecified type Expected: 09/26/2022, Expires: 11/26/2022 [facility] Work Phone: Comment on above: Expected: 09/26/2022 , Expires: 11/26/2022 Start: 09-26-2022 End: 11-26-2022 Urinalysis complete panel - Urine URINALYSIS, WITH MICROSCOPIC Lab Routine Leukocytosis, unspecified type Expected: 09/26/2022, Expires: 11/26/2022 [facility] Work Phone: Comment on above: Expected: 09/26/2022 , Expires: 11/26/2022 Start: 09-23-2022 End: 11-23-2022 CREATININE BLD CREATININE BLD Lab STAT Leukocytosis, unspecified type Expected: 09/23/2022, Expires: 11/23/2022 [facility] Work Phone: Comment on above: Expected: 09/23/2022 , Expires: 11/23/2022 Start: 09-09-2022 Influenza vaccination INFLUENZA (#1) [facility] Comment on above: Postponed from 11/11 (Declined at this time) Start: 09-02-2022 End: 07-02-2023 Ct abdomen w/o & w/contrast material CT KIDNEY WO/W IVCON Radiology Routine Other specified disorders of kidney and ureter Expected: 09/02/2022 (Approximate), Expires: 07/02/2023 [facility] Work Phone: Comment on above: Expected: 09/02/2022 (Approximate), Expires: 07/02/2023 Start: 07-05-2022 End: 09-04-2022 aPTT in Platelet poor plasma by Coagulation assay ACTIVATED PTT Lab Routine Renal mass Expected: 07/05/2022, Expires: 09/04/2022 [facility] Work Phone: Comment on above: Expected: 07/05/2022 , Expires: 09/04/2022 Start: 07-05-2022 End: 09-04-2022 CBC panel - Blood by Automated count CBC Lab Routine Renal mass Expected: 07/05/2022, Expires: 09/04/2022 [facility] Work Phone: Comment on above: Expected: 07/05/2022 , Expires: 09/04/2022 Start: 07-05-2022 End: 09-04-2022 Comprehensive metabolic 2000 panel - Serum or Plasma COMP METABOLIC PANEL Lab Routine Renal mass Expected: 07/05/2022, Expires: 09/04/2022 [facility] Work Phone: Comment on above: Expected: 07/05/2022 , Expires: 09/04/2022 Start: 07-05-2022 End: 09-04-2022 PT panel - Platelet poor plasma by Coagulation assay PROTHROMBIN TIME/PT Lab Routine Renal mass Expected: 07/05/2022, Expires: 09/04/2022 [facility] Work Phone: Comment on above: Expected: 07/05/2022 , Expires: 09/04/2022 Start: 06-09-2022 End: 08-09-2022 CONFIRM BLOOD TYPE CONFIRM BLOOD TYPE Blood Bank Routine Renal mass Expected: 06/09/2022 (Approximate), Expires: 08/09/2022 [facility] Work Phone: Comment on above: Expected: 06/09/2022 (Approximate), Expires: 08/09/2022 Start: 06-09-2022 End: 06-10-2023 MR Hip - left WO contrast MRI HIP LEFT WITHOUT CONTRAST Imaging Routine Left hip pain Pain in prosthetic joint, sequela Expected: 06/09/2022, Expires: 06/10/2023 [employer] [employer] Comment on above: Expected: 06/09/2022 , Expires: 06/10/2023 Start: 06-09-2022 End: 06-10-2023 NM Bone 3 Phase Views NUC 3 PHASE LIMITED BONE SCAN Imaging Routine Left hip pain Pain in prosthetic joint, sequela Expected: 06/09/2022, Expires: 06/10/2023 [facility] Comment on above: Expected: 06/09/2022 , Expires: 06/10/2023 Start: 06-09-2022 End: 08-09-2022 TYPE AND SCREEN,30 DAY TYPE AND SCREEN,30 DAY Blood Bank Routine Renal mass Expected: 06/09/2022 (Approximate), Expires: 08/09/2022 [facility] Work Phone: Comment on above: Expected: 06/09/2022 (Approximate), Expires: 08/09/2022 Start: 05-11-2022 COVID-19 VACCINE (#1) COVID-19 VACCI NE (#1) [facility] Comment on above: Postponed from 03/10 (Declined at this time) Start: 05-11-2022 COVID-19 VACCINE (1) COVID-19 VACCIN E (1) [facility] Comment on above: Postponed from 09/08 (Declined at this time) Start: 05-03-2022 End: 07-03-2022 CBC W Auto Differential panel - Blood [facility] Work Phone: Comment on above: Expected: 05/03/2022 , Expires: 07/03/2022 Start: 05-03-2022 End: 07-03-2022 Comprehensive metabolic 2000 panel - Serum or Plasma [facility] Work Phone: Comment on above: Expected: 05/03/2022 , Expires: 07/03/2022 Start: 03-13-2022 ADVANCE DIRECTIVE DISCUSSION ADVANCE DIRECTIVE DISCUSSION [facility] Start: 03-13-2022 DEPRESSION ASSESSMENT DEPRESSION ASS ESSMENT [facility] Start: 02-17-2022 End: 04-19-2022 25-hydroxyvitamin D3 [Mass/volume] in Serum or Plasma VITAMIN D 25 HYDROXY Lab Routine Vitamin D deficiency Expected: 02/17/2022, Expires: 04/19/2022 [facility] Work Phone: Comment on above: Expected: 02/17/2022 , Expires: 04/19/2022 Start: 02-17-2022 End: 04-19-2022 CBC W Auto Differential panel - Blood CBC + DIFF Lab Routine Hyperglycemia Expected: 02/17/2022, Expires: 04/19/2022 [facility] Work Phone: Comment on above: Expected: 02/17/2022 , Expires: 04/19/2022 Start: 02-17-2022 End: 04-19-2022 Cobalamin (Vitamin B12) [Mass/volume] in Serum or Plasma VITAMIN B12 BLOOD Lab Routine Vitamin B12 deficiency Expected: 02/17/2022, Expires: 04/19/2022 [facility] Work Phone: Comment on above: Expected: 02/17/2022 , Expires: 04/19/2022 Start: 02-17-2022 End: 04-19-2022 Comprehensive metabolic 2000 panel - Serum or Plasma COMP METABOLIC PANEL Lab Routine Hyperglycemia Expected: 02/17/2022, Expires: 04/19/2022 [facility] Work Phone: Comment on above: Expected: 02/17/2022 , Expires: 04/19/2022 Start: 02-17-2022 End: 04-19-2022 Ferritin [Mass/volume] in Serum or Plasma FERRITIN BLD Lab Routine Other iron deficiency anemia Expected: 02/17/2022, Expires: 04/19/2022 [facility] Work Phone: Comment on above: Expected: 02/17/2022 , Expires: 04/19/2022 Start: 02-17-2022 End: 04-19-2022 Iron and Iron binding capacity panel - Serum or Plasma IRON + TIBC Lab Routine Other iron deficiency anemia Expected: 02/17/2022, Expires: 04/19/2022 [facility] Work Phone: Comment on above: Expected: 02/17/2022 , Expires: 04/19/2022 Start: 12-15-2021 End: 02-14-2022 25-hydroxyvitamin D3 [Mass/volume] in Serum or Plasma VITAMIN D 25 HYDROXY Lab Routine Vitamin D deficiency Expected: 12/15/2021, Expires: 02/14/2022 [facility] Work Phone: Comment on above: Expected: 12/15/2021 , Expires: 02/14/2022 Start: 12-15-2021 End: 02-14-2022 CBC W Auto Differential panel - Blood CBC + DIFF Lab Routine Vitamin B12 deficiency Expected: 12/15/2021, Expires: 02/14/2022 [facility] Work Phone: Comment on above: Expected: 12/15/2021 , Expires: 02/14/2022 Start: 12-15-2021 End: 02-14-2022 Cobalamin (Vitamin B12) [Mass/volume] in Serum or Plasma VITAMIN B12 BLOOD Lab Routine Vitamin B12 deficiency Other iron deficiency anemia Expected: 12/15/2021, Expires: 02/14/2022 [facility] Work Phone: Comment on above: Expected: 12/15/2021 , Expires: 02/14/2022 Start: 12-15-2021 End: 02-14-2022 Comprehensive metabolic 2000 panel - Serum or Plasma COMP METABOLIC PANEL Lab Routine Other iron deficiency anemia Expected: 12/15/2021, Expires: 02/14/2022 [facility] Work Phone: Comment on above: Expected: 12/15/2021 , Expires: 02/14/2022 Start: 12-15-2021 End: 02-14-2022 Ferritin [Mass/volume] in Serum or Plasma FERRITIN BLD Lab Routine Vitamin B12 deficiency Expected: 12/15/2021, Expires: 02/14/2022 [facility] Work Phone: Comment on above: Expected: 12/15/2021 , Expires: 02/14/2022 Start: 12-15-2021 End: 02-14-2022 Iron and Iron binding capacity panel - Serum or Plasma IRON + TIBC Lab Routine Vitamin B12 deficiency Expected: 12/15/2021, Expires: 02/14/2022 [facility] Work Phone: Comment on above: Expected: 12/15/2021 , Expires: 02/14/2022 Start: 11-11-2021 Influenza vaccination [facility] Start: 09-09-2021 Influenza vaccination INFLUENZA (#1) [facility] Comment on above: Postponed from 11/11 (Declined at this time) Start: 08-04-2021 Adult depression scr eening assessment DEPRESSION SCREENING [facility] Start: 05-05-2021 Pneumococcal vaccination PNEUM OCOCCAL VACCINE SERIES (2 - PCV) [facility] Start: 05-05-2021 Pneumococcal Vaccine : 50+ (2 of 2 - PCV) Pneumococcal Vaccine: 50+ (2 of 2 - PCV) [facility] Start: 05-05-2021 Pneumococcal Vaccine : 65+ (2 - PCV) Pneumococcal Vaccine: 65+ (2 - PCV) [facility] Start: 05-05-2021 Pneumococcal Vaccine : 65+ (2 of 2 - PCV) Pneumococcal Vaccine: 65+ (2 of 2 - PCV) [facility] Start: 05-05-2021 PNEUMOCOCCAL: 65+ (2 - PCV) PNEUMOCOCCAL: 65+ (2 - PCV) [facility] Start: 03-13-2021 ADVANCE DIRECTIVE DISCUSSION ADVANCE DIRECTIVE DISCUSSION [facility] Start: 03-13-2021 DEPRESSION ASSESSMENT DEPRESSION ASS ESSMENT [facility] Start: 05-17-2018 End: 05-17-2018 Office Visit [facility] Comment on above: Hx of total hip arth roplasty, left (Primary Dx) Start: 2017 RSV Vaccine (1 - 1-d ose 75+ series) RSV Vaccine (1 - 1-dose 75+ series) [facility] Start: 09-06-2016 FECAL OCCULT BLOOD FECAL OCCULT BLOO D [facility] Start: 06-19-2009 SHINGRIX VACCINE (2 of 3) COLMENARES GRIX VACCINE (2 of 3) [facility] Start: 09-09-2007 Pneumococcal vaccination PNEUM OCOCCAL VACCINE SERIES (1 of 2 - PCV13) [facility] Start: 05-19-2007 Urine microalbumin profile [facility] Start: 2002 RSV Vaccine (1 - 1-d ose 60+ series) RSV Vaccine (1 - 1-dose 60+ series) [facility] Start: 1992 Colonoscopy COLON CANCER S CREENING DISCUSSION [facility] Start: 1992 Protein mass conc COLON CANCER SCREENING DISCUSSION [facility] Start: 1992 Zoster vaccine hzv l yasemin for subcutaneous use ZOSTER (SHINGLES) VACCINE (1 of 2) [facility] Start: 09-09-1987 COLOGUARD (FIT-DNA) COLOGUARD (FIT-D NA) [facility] Start: 09-09-[address] COLONOGRAPHY [facility] Start: 09-09-1987 Screening for malign ant neoplasm of colon [facility] Start: 09-09-1987 SIGMOIDOSCOPY SIGMOIDOSCOPY [facility] Start: 1982 Fasting lipid profile LIPID SCREENIN G [facility] Start: 1982 Protein mass conc MAMMOGRAM SC SLOAN DISCUSSION [facility] Start: 1982 Screening for malign ant neoplasm of breast MAMMOGRAM SCREENING DISCUSSION [facility] Start: 1982 Screening mammography MAMMOGRA M SCREENING DISCUSSION [facility] Start: 09-09-1963 Screening for malign ant neoplasm of cervix [facility] Start: 1961 Third diphtheria, te tanus and acellular pertussis (DTaP) vaccination TDAP (ADULT) [facility] Start: 1960 HEPATITIS C SCREENING [facility] Start: 1960 Tetanus vaccination TETANUS [facility] Start: 03-10-1943 COVID-19 VACCINE (#1) COVID-19 VACCI NE (#1) [facility] Start: 1942 Hepatitis C screening HEPATITI S C VIRUS SCREENING [facility] Start: 1942 Screening for osteoporosis DEXA SCAN DISCUSSION [facility] Start: 1942 Tetanus vaccination TETANUS [facility] Bacteria identified in Urine by Culture URINE CULTURE Microbiology Routine Renal mass 06/29/2022 1:43 PM EDT [facility] Work Phone: Bacteria identified in Urine by Culture URINE CULTURE Microbiology Routine Leukocytosis, unspecified type 09/27/2022 11:07 AM EDT [facility] Work Phone: End: 06-15-2022 COLONOSCOPY DIAGNOSTIC COLONOSCOPY DIAGNOSTIC Endoscopy Routine Blood in stool 1 Occurrences starting 06/16/2021 until 06/15/2022 [facility] Work Phone: Comment on above: 1 Occurrences starti ng 06/16/2021 until 06/15/2022 End: 10-23-2023 Ct abdomen & pelvis w/contrast material CT ABD/PEL W IVCON Radiology STAT Leukocytosis, unspecified type 1 Occurrences starting 09/23/2022 until 10/23/2023 [facility] Work Phone: Comment on above: 1 Occurrences starti ng 09/23/2022 until 10/23/2023 End: 06-12-2023 Ct abdomen w/o & w/contrast material CT KIDNEY WO/W IVCON Radiology Routine Other specified disorders of kidney and ureter Renal mass Right sided abdominal pain 1 Occurrences starting 05/13/2022 until 06/12/2023 [facility] Work Phone: Comment on above: 1 Occurrences starti ng 05/13/2022 until 06/12/2023 End: 11-09-2023 Ct abdomen w/o & w/contrast material CT KIDNEY WO/W IVCON Radiology Routine Other specified disorders of kidney and ureter 1 Occurrences starting 10/10/2022 until 11/09/2023 [facility] Work Phone: Comment on above: 1 Occurrences starti ng 10/10/2022 until 11/09/2023 End: 11-20-2023 Ct abdomen w/o & w/contrast material CT KIDNEY WO/W IVCON Radiology STAT Leukocytosis, unspecified type Acquired cyst of kidney Other specified disorders of kidney and ureter Renal mass, right 1 Occurrences starting 10/21/2022 until 11/20/2023 [facility] Work Phone: Comment on above: 1 Occurrences starti ng 10/21/2022 until 11/20/2023 End: 06-03-2024 CT Kidney WO and W contrast IV CT KIDNEY WO/W IVCON Radiology Routine Renal mass, right 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) 1 Occurrences starting 05/05/2023 until 06/03/2024 [facility] Work Phone: Comment on above: 1 Occurrences starti ng 05/05/2023 until 06/03/2024 CT Kidney WO and W contrast IV CT KIDNEY WO/W IVCON Radiology Routine Renal mass, right 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) 07/12/2023 11:33 AM EDT [facility] Work Phone: End: 06-10-2023 ECG COMPLETE ECG COMPLETE ECG Routine Renal mass 1 Occurrences starting 06/09/2022 until 06/10/2023 [facility] Work Phone: Comment on above: 1 Occurrences starti ng 06/09/2022 until 06/10/2023 End: 12-15-2022 Echocardiography ECHO Cardiology Routine Nonrheumatic mitral valve regurgitation 1 Occurrences starting 12/15/2021 until 12/15/2022 [facility] Work Phone: Comment on above: 1 Occurrences starti ng 12/15/2021 until 12/15/2022 End: 06-15-2022 EGD DIAGNOSTIC EGD DIAGNOSTIC Endoscopy Routine Blood in stool 1 Occurrences starting 06/16/2021 until 06/15/2022 [facility] Work Phone: Comment on above: 1 Occurrences starti ng 06/16/2021 until 06/15/2022 End: 07-17-2023 Hepatobil syst imag inc gb w/pharma intervenj NM HEPATOBILIARY W EF AND/OR RX Radiology Routine Calculus of gallbladder without cholecystitis without obstruction 1 Occurrences starting 06/17/2022 until 07/17/2023 [facility] Work Phone: Comment on above: 1 Occurrences starti ng 06/17/2022 until 07/17/2023 End: 11-20-2023 Hepatobil syst imag inc gb w/pharma intervenj NM HEPATOBILIARY W EF AND/OR RX Radiology Routine Calculus of gallbladder without cholecystitis without obstruction 1 Occurrences starting 10/21/2022 until 11/20/2023 [facility] Work Phone: Comment on above: 1 Occurrences starti ng 10/21/2022 until 11/20/2023 End: 11-06-2025 Liver stiffness by US.transient elastography US ELASTOGRAPHY LIVER Radiology Routine Fatty liver 1 Occurrences starting 10/07/2024 until 11/06/2025 [facility] Comment on above: 1 Occurrences starti ng 10/07/2024 until 11/06/2025 MATT SCREENING MATT SCREENING Radiology Routine Encounter for screening mammogram for malignant neoplasm of breast 02/13/2023 2:11 PM EST [facility] Work Phone: End: 04-28-2025 MG Breast Screening MATT SCREENING Radiology Routine Encounter for screening mammogram for malignant neoplasm of breast 1 Occurrences starting 03/29/2024 until 04/28/2025 [facility] Work Phone: Comment on above: 1 Occurrences starti ng 03/29/2024 until 04/28/2025 MG Breast Screening MATT SCREENIN G Radiology Routine Encounter for screening mammogram for malignant neoplasm of breast 05/30/2024 1:11 PM EDT [facility] Work Phone: End: 08-25-2024 MR Abdomen WO and W contrast IV MRI ABDOMEN WO/W IVCON Radiology Routine History of renal cell cancer 1 Occurrences starting 07/27/2023 until 08/25/2024 [facility] Comment on above: 1 Occurrences starti ng 07/27/2023 until 08/25/2024 MR Abdomen WO and W contrast IV MRI ABDOMEN WO/W IVCON Radiology Routine History of renal cell cancer 08/22/2024 10:11 AM EDT [facility] Work Phone: End: 06-23-2022 MR Hip - left WO contrast [facility] [facility] Comment on above: 1 Occurrences starti ng 06/23/2022 until 06/23/2022 End: 11-13-2025 MR Kidney WO and W contrast IV MRI KIDNEY WO/W IVCON Radiology Routine Other specified disorders of kidney and ureter 1 Occurrences starting 10/14/2024 until 11/13/2025 [facility] Work Phone: Comment on above: 1 Occurrences starti ng 10/14/2024 until 11/13/2025 End: 10-26-2023 Mri abdomen w/o & w/contrast material MRI PANC/SUSANA WO/W IVCON Radiology CAREN Contrast media allergy Pancreatic lesion 1 Occurrences starting 09/26/2022 until 10/26/2023 [facility] Work Phone: Comment on above: 1 Occurrences starti ng 09/26/2022 until 10/26/2023 End: 01-14-2023 Mri any jt lower extrem w/o contrast matrl MRI HIP WO IVCON LT Radiology Routine Left hip pain Antalgic gait History of hip replacement, total, left Limping 1 Occurrences starting 12/15/2021 until 01/14/2023 [facility] Work Phone: Comment on above: 1 Occurrences starti ng 12/15/2021 until 01/14/2023 End: 06-23-2022 NM Bone 3 Phase Views [facility] Sy[facility] m Comment on above: 1 Occurrences starti ng 06/23/2022 until 06/23/2022 Radiography for bone length studies XR BONE LENGTH STUDY Imaging Routine Pain in prosthetic joint, sequela 06/09/2022 11:44 AM EDT [facility] End: 08-22-2023 Radiologic exam chest 2 views XR CHEST 2V FRONTAL/LAT Radiology Routine Renal cell carcinoma, unspecified laterality (HCC) 1 Occurrences starting 07/25/2022 until 08/22/2023 [facility] Work Phone: Comment on above: 1 Occurrences starti ng 07/25/2022 until 08/22/2023 Screening mammograph y bi 2-view breast inc cad MATT SCREENING Radiology Routine Visit for screening mammogram Ordered: 12/13/2021 [facility] Work Phone: Comment on above: Ordered: 12/13/2021 Skeletal X-ray of pe lvis and hip XR HIP WITH PELVIS LEFT Imaging Routine Hx of total hip arthroplasty, left 05/17/2018 8:49 AM EST [facility] Urinalysis complete panel - Urine URINALYSIS, WITH MICROSCOPIC Lab Routine Leukocytosis, unspecified type 09/27/2022 11:07 AM EDT [facility] Work Phone: End: 07-10-2023 US ABDOMEN COMPLETE US ABDOMEN COMPLETE Radiology CAREN Renal mass, right Generalized abdominal pain Calculus of gallbladder without cholecystitis without obstruction Nausea 1 Occurrences starting 06/10/2022 until 07/10/2023 [facility] Work Phone: Comment on above: 1 Occurrences starti ng 06/10/2022 until 07/10/2023 End: 11-06-2025 US Abdomen RUQ US ABD RIGHT UPPER QUADRANT Radiology Routine Fatty liver 1 Occurrences starting 10/07/2024 until 11/06/2025 [facility] Work Phone: Comment on above: 1 Occurrences starti ng 10/07/2024 until 11/06/2025 End: 06-02-2023 Us abdominal real time w/image limited US ABD RT UPPER QUADRANT Radiology Routine Right sided abdominal pain 1 Occurrences starting 05/03/2022 until 06/02/2023 [facility] Work Phone: Comment on above: 1 Occurrences starti ng 05/03/2022 until 06/02/2023 End: 07-10-2023 Us pelvic nonobstetric image dcmtn limited/f/u US FEMALE PELVIS TRANSABD LTD Radiology CAREN Renal mass, right Generalized abdominal pain Calculus of gallbladder without cholecystitis without obstruction Nausea 1 Occurrences starting 06/10/2022 until 07/10/2023 [facility] Work Phone: Comment on above: 1 Occurrences starti ng 06/10/2022 until 07/10/2023 End: 07-10-2023 Us transvaginal US FEMALE PELVIS TRANSVAG Radiology CAREN Renal mass, right Generalized abdominal pain Calculus of gallbladder without cholecystitis without obstruction Nausea 1 Occurrences starting 06/10/2022 until 07/10/2023 [facility] Work Phone: Comment on above: 1 Occurrences starti ng 06/10/2022 until 07/10/2023 End: 06-02-2023 XR ABDOMEN 1V SUPINE XR ABDOMEN 1V SUPINE Radiology Routine Right sided abdominal pain 1 Occurrences starting 05/03/2022 until 06/02/2023 [facility] Work Phone: Comment on above: 1 Occurrences starti ng 05/03/2022 until 06/02/2023 XR ABDOMEN 1V SUPINE XR ABDOMEN 1V SUPINE Radiology Routine Right sided abdominal pain 05/03/2022 12:15 PM EST [facility] Work Phone: End: 06-03-2024 XR Chest PA and Lateral XR CHEST 2V FRONTAL/LAT Radiology Routine Renal mass, right 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) 1 Occurrences starting 05/05/2023 until 06/03/2024 [facility] Work Phone: Comment on above: 1 Occurrences starti ng 05/05/2023 until 06/03/2024 XR Chest PA and Lateral XR CHEST 2V FRONTAL/LAT Radiology Routine Renal mass, right 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) 07/12/2023 10:38 AM EDT [facility] Work Phone: End: 08-25-2024 XR Chest PA and Lateral XR CHEST 2V FRONTAL/LAT Radiology Routine History of renal cell cancer 1 Occurrences starting 07/27/2023 until 08/25/2024 [facility] Comment on above: 1 Occurrences starti ng 07/27/2023 until 08/25/2024 XR Chest PA and Lateral XR CHEST 2V FRONTAL/LAT Radiology Routine History of renal cell cancer 08/22/2024 9:06 AM EDT [facility] Work Phone: XR Knee - left 3 Views XR KNEE L EFT 3 VIEWS Imaging Routine Pain in prosthetic joint, sequela 06/09/2022 11:44 AM EDT [email or web address] XR Pelvis and Hip - left Views XR HIP WITH PELVIS LEFT Imaging Routine Left hip pain 06/09/2022 10:19 AM EDT [facility] Immunizations Immunization Date Immunization Notes Care Provider Fa cili 05-05-2020 pneumococcal polysaccharide vaccine, 23 valent Jagjit Matias DO Work Phone: [facility] Work Phone: 05-05-2020 zoster vaccine, recombinant, adjuvanted, (SHINGRIX, PF,) 50 mcg/0.5 mL injection Xr Michelle Work Phone: [facility] 01-09-2018 influenza, high dose seasonal, preservative-free Jagjit Minoron DO Work Phone: [facility] Work Phone: 01-09-2018 influenza virus vacc ine, unspecified formulation Frank Plata MD Work Phone: [facility] 12-25-2012 influenza virus vacc ine, unspecified formulation Jagjit Matias DO Work Phone: [facility] 04-24-2009 zoster vaccine, live Jagjit Matias DO Work Phone: [facility] Work Phone: 01-26-2009 pneumococcal polysaccharide vaccine, 23 valent Jagjit Matias DO Work Phone: [facility] Work Phone: 01-09-2009 influenza virus vacc ine, unspecified formulation Jagjit Matias DO Work Phone: [facility] Work Phone: 05-18-2007 tetanus and diphther ia toxoids, adsorbed, preservative free, for adult use (2 Lf of tetanus toxoid and 2 Lf of diphtheria toxoid) Jagjit Matias DO Work Phone: [facility] 04-10-2007 influenza virus vacc ine, unspecified formulation Jagjit Matias DO Work Phone: [facility] Work Phone: Payers Date Payer Category Payer Self-pay 2021 Medicare AETNA MEDICARE A ETNA MEDICARE PPO [id number] 2021-Present [phone] [address] [place] [address] O [id number] 2021 Medicare (Managed Care) AETNA [place] ANAND [id number] 2021 Medicare [id number] 2020 Medicare [id number] 2017 Medicare MEDICARE AETNA H MO [place] PPO MEDICARE AETNA PPO xxxxxxxx 2017-Present [id number] [facility] [place] [facility] [id number] 2006-Present [phone] [facility] [place] [address] [facility] [id number] 1942 Unknown [id number] 1942 Unknown [id number] 1942 Unknown [id number] 1942 Unknown [id number] 1942 Unknown [id number] 1942 Unknown [id number] 1942 Unknown [id number] Unknown [id number] Social History Date Type Detail Facility Start: 01-23-2012 End: 05-17-2018 Tobacco smoking status NHIS Never smoker [facility] Work Phone: Start: 1940 Sex Assigned At Not on file O [facility] Start: 11-06-2020 End: 10-07-2024 Alcohol intake Current non-drinker of alcohol (finding) [facility] Start: 07-05-2020 End: 01-05-2022 Exposure to SARS-CoV-2 (event) Not sure [facility] Start: 01-23-2012 End: 06-09-2022 Tobacco use and exposure Smokeless tobacco non-user [facility] Start: 07-07-2022 History SDOH Financial 4 [facility] Start: 07-07-2022 History SDOH Food Worry 1 [facility] Start: 07-07-2022 History SDOH Transpo rt Med 2 [facility] Start: 07-21-2022 End: 09-22-2022 History of Social function [facility] Start: 07-21-2022 End: 09-22-2022 Tobacco use panel [facility] How hard is it for y ou to pay for the very basics like food, housing, medical care, and heating Not very hard [facility] Adult Depression Screening Assessment 0 [facility] Work Phone: (I/We) worried ruby er (my/our) food would run out before (I/we) got money to buy more. Never true [facility] In the past 12 month s, was there a time when you were not able to pay the mortgage or rent on time? No [facility] How often to you hav e a drink containing alcohol? Never [facility] Medical Equipment Procedure Code Equipment Code Equipment Origin al Text Equipment Identifier Dates Small Socket Ins ert 32 Mm Neutral [id number] Start: 06-19-2018 Head Rsp 32mm -4 mm Offset Glenoid Retain Screw - [id number] Start: 06-19-2018 Stem Humeral Altivate Reverse Small Shell Sz 30m198dq - [id number] Start: 06-19-2018 Baseplate Rsp P2 30mm Glenoid Sterile - [id number] Start: 06-19-2018 Screw Rsp 5mm 18 mm Bone Lock Glenoid Baseplate Shoulder - [id number] Start: 06-19-2018 Screw Rsp 5mm 14 mm Bone Lock Glenoid Baseplate Shoulder - [id number] Start: 06-19-2018 Screw Rsp 5mm 26 mm Bone Lock Glenoid Baseplate Shoulder - [id number] Start: 06-19-2018 Screw Rsp 5mm 30 mm Bone Lock Glenoid Baseplate Shoulder - [id number] Start: 06-19-2018 Functional Status Date Assessment Result Facility 10-07-2024 Total score [AUDIT-C] 0 10/08/19 7:48 AM EDT Elizabeth Watts LPN [facility] 06-20-2018 Are you deaf, or do you have serious difficulty hearing No 06/20/2018 2:20 PM EDT Parminder Vance RN No [facility] 06-20-2018 Are you blind, or do you have serious difficulty seeing, even when wearing glasses No 06/20/2018 2:20 PM EDT Parminder Vance RN No [facility] 06-20-2018 Do you have serious difficulty walking or climbing stairs No 06/20/2018 2:20 PM EDT Parminder Vance RN No [facility] 06-20-2018 Do you have difficul ty dressing or bathing No 06/20/2018 2:20 PM EDT Parminder Vance RN No [facility] 06-20-2018 Because of a physica l, mental, or emotional condition, do you have difficulty doing errands alone such as visiting a physician's office or shopping No 06/20/2018 2:20 PM EDT Parminder Vance RN No [facility] Mental Status Date Assessment Result Facility 06-20-2018 Because of a physica l, mental, or emotional condition, do you have serious difficulty concentrating, remembering, or making decisions No 06/20/2018 2:20 PM EDT Parminder Vance RN No [facility] Clinical Notes 11-03-2014 to 10-14-2024 Zora Hernandes APRN.[facility] - 10/14/2024 1:58 PM EDTTeleetelvina Rodriguez - Danya Jones RN - 10/09/2024 9:32 AM EDTTelephone Encounter - Danya Jones RN - 10/09/2024 9:32 AM EDT Note Date & Type Note Facility 10-14-2024 Note HNO ID: [id number] Author: ZORA HERNANDES APRN.[employer] Service: ? Author Type: Nurse Practitioner Type: Progress Notes Filed: 10/14/2024 14:18 Note Text: [facility] ESTABLISHED PATIENT VIRTUAL VISIT This is a virtual visit using [employer] Video Visit. It required patient-provider interaction for the medical decision making as documented below. I have communicated my name and active licensure. The patient's identity and physical location were verified at the time of this visit. Either the patient or their legal entry level marketing representative has been informed of the risks and benefits of -- and alternatives to -- treatment through a remote evaluation and consents to proceed with the evaluation remotely. REASON FOR VISIT: Follow up HPI 84 year old female presenting for follow-up of RCC. The histologic subtype was clear cell. ISUP Grade: 2. Pathologic Stage: T1a. Maximal tumor dimension was 3.8 cm. Tumor Thrombus present No Tumor necrosis present: Yes. Sarcomatoid/Rhabdoid features present: No. Patient is status post robotic partial nephrectomy on 07/06/2022. Tumor was on the right side. Lymphadenectomy performed? No. Any systemic therapy given before or after surgery? No. Interval history: Patient presenting for follow up to review MRI images PATHOLOGY: Surgical Pathology 07/06/2022 FINAL DIAGNOSIS A. 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 - Tumor confined to the kidney (pT1a). - Surgical margins are negative for tumor. LABS: Creatinine Date Value Ref Range Status 10/03/2024 0.80 0.58 - 0.96 mg/dL Final 03/27/2024 0.79 0.58 - 0.96 mg/dL Final 10/26/2023 0.80 0.58 - 0.96 mg/dL Final 07/12/2023 0.69 0.58 - 0.96 mg/dL Final No results found for: PSA URINALYSIS: Specific [place], Ur Date Value Ref Range Status 07/27/2023 1.016 1.005 - 1.030 Final Glucose, Urine Date Value Ref Range Status 07/27/2023 Negative Trace, Negative Final Bilirubin, Urine Date Value Ref Range Status 07/27/2023 Negative Negative Final Ketones, Urine Date Value Ref Range Status 07/27/2023 Negative Negative, Trace Final Hemoglobin/Blood,Ur Date Value Ref Range Status 07/27/2023 1+ (A) Negative, Trace Final Protein, Urine Date Value Ref Range Status 07/27/2023 Negative Trace, Negative Final Nitrites Date Value Ref Range Status 07/27/2023 Negative Negative Final WBC, Urine Date Value Ref Range Status 07/27/2023 0-5 /HPF 0-5 /HPF Final IMAGING: MRI abdomen 08/22/2024 IMPRESSION: Two small enhancing left renal foci may represent early developing neoplasm. Follow-up recommended. No recurrent or residual neoplasm in the right kidney No evidence of metastatic disease in the abdomen. Fatty infiltration of the liver. Hiatal hernia. Cholelithiasis. Stable pancreatic cysts ALLERGIES: ALLERGIES Allergen Reactions Latex, Natural Rubb* Rash, Intolerance, Itching Cephalexin Chlorhexidine Rash Diclofenac Iodine Rash During heart cath contrast dye Levaquin [Levofloxa* Rash Penicillins Rash MEDICATIONS: Current Outpatient Medications Medication Sig pantoprazole DR (PROTONIX) 40 mg tablet Take 1 tablet by mouth once daily. acetaminophen (TYLENOL) 325 mg tablet Take 2 tablets by mouth every 6 hours as needed for pain. calcium carbonate (CALTRATE) 600 mg calcium (1,500 mg) tab Take by mouth. ferrous sulfate (IRON, FERROUS SULFATE,) 325 mg (65 mg iron) tablet Take 1 tablet by mouth twice daily with meals. cholecalciferol, vitamin D3, (VITAMIN D3 ORAL) Take by mouth once daily. No current facility-administered medications for this visit. HISTORIES PAST MEDICAL HISTORY Diagnosis Date Arthritis Essential tremor History of transfusion Hyperlipidemia Iron deficiency Overweight (BMI 25.0-29.9) PMH - PAST MEDICAL HISTORY OF arthritis PMH - PAST MEDICAL HISTORY OF varicose veins PMH - PAST MEDICAL HISTORY OF mitral regurg Renal cell carcinoma (HCC) 10/23/2022 PAST SURGICAL HISTORY Procedure Laterality Date APPENDECTOMY APPENDECTOMY HX ARTHRP ACETBLR/PROX FEM PROSTC AGRFT/ALGRFT 01/28/2014 left arthroplasty ARTHRP KNE CONDYLEANDPLATU MEDIALANDLAT COMPARTMENTS 02/12/2009 Knee replacement, total left ARTHRP KNE CONDYLEANDPLATU MEDIALANDLAT COMPARTMENTS 2010 Right knee COLONOSCOPY 06/24/2021 repeat in 10 years COLONOSCOPY FLX DX W/COLLJ SPEC WHEN PFRMD 2004 Colonoscopy COLONOSCOPY FLX DX W/COLLJ SPEC WHEN PFRMD 07/17/2014 Colonoscopy EGD W/O BRSH SPEC VARICIES INJ 06/24/2021 ESOPHAGOGASTRODUODENOSCOPY TRANSORAL DIAGNOSTIC 07/17/2014 EGD JOINT REPLACEMENT HX PAST SURGICAL HISTORY OF Bilateral 2005 VEIN STRIPPING PAST SURGICAL HISTORY OF 1999 heart cath PAST SURGICAL HISTORY OF 03/2020 colonoscopy and EGD SKIN BIOPSY HX VASCULAR SURGERY PROCEDURE Social History T (more content not included)... [facility] 10-14-2024 History of Present illness Narrative [facility] ESTABLISHED PATIENT VIRTUAL VISIT This is a virtual visit using [employer] Visit. It required patient-provider interaction for the medical decision making as documented below. I have communicated my name and active licensure. The patient's identity and physical location were verified at the time of this visit. Either the patient or their legal entry level marketing representative has been informed of the risks and benefits of -- and alternatives to -- treatment through a remote evaluation and consents to proceed with the evaluation remotely. REASON FOR VISIT: Follow up HPI 84 year old female presenting for follow-up of RCC. The histologic subtype was clear cell. ISUP Grade: 2. Pathologic Stage: T1a. Maximal tumor dimension was 3.8 cm. Tumor Thrombus present No Tumor necrosis present: Yes. Sarcomatoid/Rhabdoid features present: No. Patient is status post robotic partial nephrectomy on 07/06/2022. Tumor was on the right side. Lymphadenectomy performed? No. Any systemic therapy given before or after surgery? No. Interval history: Patient presenting for follow up to review MRI images PATHOLOGY: Surgical Pathology 07/06/2022 FINAL DIAGNOSIS A. 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 - Tumor confined to the kidney (pT1a). - Surgical margins are negative for tumor. LABS: Creatinine Date Value Ref Range Status 10/03/2024 0.80 0.58 - 0.96 mg/dL Final 03/27/2024 0.79 0.58 - 0.96 mg/dL Final 10/26/2023 0.80 0.58 - 0.96 mg/dL Final 07/12/2023 0.69 0.58 - 0.96 mg/dL Final No results found for: PSA URINALYSIS: Specific [place], Ur Date Value Ref Range Status 07/27/2023 1.016 1.005 - 1.030 Final Glucose, Urine Date Value Ref Range Status 07/27/2023 Negative Trace, Negative Final Bilirubin, Urine Date Value Ref Range Status 07/27/2023 Negative Negative Final Ketones, Urine Date Value Ref Range Status 07/27/2023 Negative Negative, Trace Final Hemoglobin/Blood,Ur Date Value Ref Range Status 07/27/2023 1+ (A) Negative, Trace Final Protein, Urine Date Value Ref Range Status 07/27/2023 Negative Trace, Negative Final Nitrites Date Value Ref Range Status 07/27/2023 Negative Negative Final WBC, Urine Date Value Ref Range Status 07/27/2023 0-5 /HPF 0-5 /HPF Final IMAGING: MRI abdomen 08/22/2024 IMPRESSION: Two small enhancing left renal foci may represent early developing neoplasm. Follow-up recommended. No recurrent or residual neoplasm in the right kidney No evidence of metastatic disease in the abdomen. Fatty infiltration of the liver. Hiatal hernia. Cholelithiasis. Stable pancreatic cysts ALLERGIES: ALLERGIES Allergen Reactions Latex, Natural Rubb* Rash, Intolerance, Itching Cephalexin Chlorhexidine Rash Diclofenac Iodine Rash During heart cath contrast dye Levaquin [Levofloxa* Rash Penicillins Rash MEDICATIONS: Current Outpatient Medications Medication Sig pantoprazole DR (PROTONIX) 40 mg tablet Take 1 tablet by mouth once daily. acetaminophen (TYLENOL) 325 mg tablet Take 2 tablets by mouth every 6 hours as needed for pain. calcium carbonate (CALTRATE) 600 mg calcium (1,500 mg) tab Take by mouth. ferrous sulfate (IRON, FERROUS SULFATE,) 325 mg (65 mg iron) tablet Take 1 tablet by mouth twice daily with meals. cholecalciferol, vitamin D3, (VITAMIN D3 ORAL) Take by mouth once daily. No current facility-administered medications for this visit. HISTORIES PAST MEDICAL HISTORY Diagnosis Date Arthritis Essential tremor History of transfusion Hyperlipidemia Iron deficiency Overweight (BMI 25.0-29.9) PMH - PAST MEDICAL HISTORY OF arthritis PMH - PAST MEDICAL HISTORY OF varicose veins PMH - PAST MEDICAL HISTORY OF mitral regurg Renal cell carcinoma (HCC) 10/23/2022 PAST SURGICAL HISTORY Procedure Laterality Date APPENDECTOMY APPENDECTOMY HX ARTHRP ACETBLR/PROX FEM PROSTC AGRFT/ALGRFT 01/28/2014 left arthroplasty ARTHRP KNE CONDYLE&PLATU MEDIAL&LAT COMPARTMENTS 02/12/2009 Knee replacement, total left ARTHRP KNE CONDYLE&PLATU MEDIAL&LAT COMPARTMENTS 2010 Right knee COLONOSCOPY 06/24/2021 repeat in 10 years COLONOSCOPY FLX DX W/COLLJ SPEC WHEN PFRMD 2004 Colonoscopy COLONOSCOPY FLX DX W/COLLJ SPEC WHEN PFRMD 07/17/2014 Colonoscopy EGD W/O [facility] SPEC VARICIES INJ 06/24/2021 ESOPHAGOGASTRODUODENOSCOPY TRANSORAL DIAGNOSTIC 07/17/2014 EGD JOINT REPLACEMENT HX PAST SURGICAL HISTORY OF Bilateral 2005 VEIN STRIPPING PAST SURGICAL HISTORY OF 1999 heart cath PAST SURGICAL HISTORY OF 03/2020 colonoscopy and EGD SKIN BIOPSY HX VASCULAR SURGERY PROCEDURE Social History Tobacco Use Smoking status: Never Smokeless tobacco: Never Vaping Use Vaping status: Never Used Substance Use Topics Alcohol use: No Drug use: No PHYSICAL EXAMINATION There were no vitals taken for this visit. General: Well appearing, alert, in no acute distress, and well-hydrated, well nourished ASSESSMENT: Kidney cancer [id number] Histologic subtype clear cell ISUP grade 2, s/p robotic partial nephrectomy on 07/06/2022. MRI abdomen with 2 1cm enhancing lesions ont he left kidney PLAN MRI Kidney in 3 months and follow up after to discuss I spent a total of 30 minutes on the date of the service which included preparing to see the patient, [id number] patient care, completing clinical documentation, counseling and educating the patient/family/caregiver, ordering medications, tests, or procedures, and independently interpreting results (not separately reported). Zora Hernandes APRN.CNP documented in this encounter [facility] 10-09-2024 Telephone encounter Note Patient calls to report that [facility] hasn't received the orders for ultrasound abdomen and elastography liver. Faxed to [phone] per request. Danya Jones RN [facility] 10-09-2024 Miscellaneous Notes Patient calls to report that [facility] hasn't received the orders for ultrasound abdomen and elastography liver. Faxed to [phone] per request. Danya Jones RN documented in this encounter [facility] 10-07-2024 Note HNO ID: [id number] Author: JAGJIT MATIAS, DO Service: ? Author Type: Physician Type: Progress Notes Filed: 10/07/2024 11:43 Note Text: CC: Letha Castro is a 84 year old female who presents to the office for follow up HPI: Hx of right renal cell carcinoma, had recent MRI abdomen and concerns for 2 separate 1 cm lesions on the left kidney. Has a follow up in the next 1 week with Urologist to determine next steps- she is asymptomatic Hyperglycemia, willing to have A1c rechecked and fasting labs HPL, willing to have labs rechecked Diagnosed with fatty liver on recent MRI abdomen. Willing to have additional liver testing, is asymptomatic. Admits to eating red meat 3 days a week- hamburger etc. JOHNY, hx of, taking iron supplement twice a day with food PAST MEDICAL HISTORY Diagnosis Date Arthritis Essential tremor History of transfusion Hyperlipidemia Iron deficiency Overweight (BMI 25.0-29.9) PMH - PAST MEDICAL HISTORY OF arthritis PMH - PAST MEDICAL HISTORY OF varicose veins PMH - PAST MEDICAL HISTORY OF mitral regurg Renal cell carcinoma (HCC) 10/23/2022 PAST SURGICAL HISTORY Procedure Laterality Date APPENDECTOMY APPENDECTOMY HX ARTHRP ACETBLR/PROX FEM PROSTC AGRFT/ALGRFT 01/28/2014 left arthroplasty ARTHRP KNE CONDYLEANDPLATU MEDIALANDLAT COMPARTMENTS 02/12/2009 Knee replacement, total left ARTHRP KNE CONDYLEANDPLATU MEDIALANDLAT COMPARTMENTS 2009 Right knee COLONOSCOPY 06/24/2021 repeat in 10 years COLONOSCOPY FLX DX W/COLLJ SPEC WHEN PFRMD 2004 Colonoscopy COLONOSCOPY FLX DX W/COLLJ SPEC WHEN PFRMD 07/17/2014 Colonoscopy EGD W/O [facility] SPEC VARICIES INJ 06/24/2021 ESOPHAGOGASTRODUODENOSCOPY TRANSORAL DIAGNOSTIC 07/17/2014 EGD JOINT REPLACEMENT HX PAST SURGICAL HISTORY OF Bilateral 2005 VEIN STRIPPING PAST SURGICAL HISTORY OF 1999 heart cath PAST SURGICAL HISTORY OF 03/2020 colonoscopy and EGD SKIN BIOPSY HX VASCULAR SURGERY PROCEDURE Current Outpatient Medications Medication Sig pantoprazole DR (PROTONIX) 40 mg tablet Take 1 tablet by mouth once daily. predniSONE (DELTASONE) 50 mg Take 1 tablet by mouth at 13 hours, 7 hours, and [address] dye infusion. (Patient not taking: Reported on 10/26/2023) acetaminophen (TYLENOL) 325 mg tablet Take 2 tablets by mouth every 6 hours as needed for pain. calcium carbonate (CALTRATE) 600 mg calcium (1,500 mg) tab Take by mouth. ferrous sulfate (IRON, FERROUS SULFATE,) 325 mg (65 mg iron) tablet Take 1 tablet by mouth twice daily with meals. cholecalciferol, vitamin D3, (VITAMIN D3 ORAL) Take by mouth once daily. No current facility-administered medications for this visit. ALLERGIES Allergen Reactions Latex, Natural Rubb* Rash, Intolerance, Itching Cephalexin Chlorhexidine Rash Diclofenac Iodine Rash During heart cath contrast dye Levaquin [Levofloxa* Rash Penicillins Rash Social History Tobacco Use Smoking status: Never Smokeless tobacco: Never Vaping Use Vaping status: Never Used Substance Use Topics Alcohol use: No Drug use: No ROS: See HPI PE: BP 150/82 Pulse 60 Temp (Src) 97 (Right Tympanic) Resp 16 Ht 5' 2.205 (1.58m) Wt 149 lb (67.6kg) BMI 27.07 kg/(m2). Gen: AANDOX3, NAD, non-toxic appearing HEENT: PERRLA, EOMs intact b/l, nares without drainage, pharynx without erythema, exudate, lesions, or drainage. Uvula midline. Neck: No LAD, no thyromegaly, no meningismus. CV: RRR, no murmur Lungs: CTA b/l, no wheezing Skin: No rashes, lesions, or wounds on exposed skin. Arthritis changes Abd: soft, NT, ND, normal BS, no masses, overweight No edema, normal pulses ASSESSMENT/PLAN: 1. Medicare annual wellness visit, subsequent - ICD9: V70.0, ICD10: Z00.00 (primary diagnosis) - Counseled on healthy diet and regular exercise - Discussed need and benefit for weight loss. BMI 27.07 kg/(m2) 2. Fatty liver - ICD9: 571.8, ICD10: K76.0 Check labs and RUQ US and elastography testing as ordered Asymptomatic Found on MRI abdomen - US ABD RIGHT UPPER QUADRANT - US ELASTOGRAPHY LIVER - HEPATIC FUNCTION PNL 3. Vitamin D deficiency - ICD9: 268.9, ICD10: E55.9 - VITAMIN D 25 HYDROXY 4. Dyslipidemia - ICD9: 272.4, ICD10: E78.5 - Control undetermined, due for labs - Counseled on healthy diet and regular exercise - Discussed need for and benefit of weight loss. BMI 27.07 kg/(m2) - LIPID PANEL, FASTING 5. Other iron deficiency anemia - ICD9: 280.8, ICD10: D50.8 Recheck labs Continue supplement - IRON AND TIBC - FERRITIN - COMPLETE BLOOD COUNT AND DIFFERENTIAL 6. Impaired fasting glucose - ICD9: 790.21, ICD10: R73.01 - HEMOGLOBIN A1C - COMPLETE BLOOD COUNT AND DIFFERENTIAL 7. Vitamin B 12 deficiency - ICD9: 266.2, ICD10: E53.8 - VITAMIN B12 Jagjit Matias DO Return if no improvement. Follow up with Jagjit Matias DO. To ER if develops chest pain, shortness of breath. Discussed risks, benefits, (more content not included)... [facility] 10-07-2024 History of Present illness Narrative CC: Letha Castro is a 84 year old female who presents to the office for follow up HPI: Hx of right renal cell carcinoma, had recent MRI abdomen and concerns for 2 separate 1 cm lesions on the left kidney. Has a follow up in the next 1 week with Urologist to determine next steps- she is asymptomatic Hyperglycemia, willing to have A1c rechecked and fasting labs HPL, willing to have labs rechecked Diagnosed with fatty liver on recent MRI abdomen. Willing to have additional liver testing, is asymptomatic. Admits to eating red meat 3 days a week- hamburger etc. JOHNY, hx of, taking iron supplement twice a day with food PAST MEDICAL HISTORY Diagnosis Date Arthritis Essential tremor History of transfusion Hyperlipidemia Iron deficiency Overweight (BMI 25.0-29.9) PMH - PAST MEDICAL HISTORY OF arthritis PMH - PAST MEDICAL HISTORY OF varicose veins PMH - PAST MEDICAL HISTORY OF mitral regurg Renal cell carcinoma (HCC) 10/23/2022 PAST SURGICAL HISTORY Procedure Laterality Date APPENDECTOMY APPENDECTOMY HX ARTHRP ACETBLR/PROX FEM PROSTC AGRFT/ALGRFT 01/28/2014 left arthroplasty ARTHRP KNE CONDYLE&PLATU MEDIAL&LAT COMPARTMENTS 02/12/2009 Knee replacement, total left ARTHRP KNE CONDYLE&PLATU MEDIAL&LAT COMPARTMENTS 2010 Right knee COLONOSCOPY 06/24/2021 repeat in 10 years COLONOSCOPY FLX DX W/COLLJ SPEC WHEN PFRMD 2004 Colonoscopy COLONOSCOPY FLX DX W/COLLJ SPEC WHEN PFRMD 07/17/2014 Colonoscopy EGD W/O [facility] SPEC VARICIES INJ 06/24/2021 ESOPHAGOGASTRODUODENOSCOPY TRANSORAL DIAGNOSTIC 07/17/2014 EGD JOINT REPLACEMENT HX PAST SURGICAL HISTORY OF Bilateral 2004 VEIN STRIPPING PAST SURGICAL HISTORY OF 1999 heart cath PAST SURGICAL HISTORY OF 03/2020 colonoscopy and EGD SKIN BIOPSY HX VASCULAR SURGERY PROCEDURE Current Outpatient Medications Medication Sig pantoprazole DR (PROTONIX) 40 mg tablet Take 1 tablet by mouth once daily. predniSONE (DELTASONE) 50 mg Take 1 tablet by mouth at 13 hours, 7 hours, and [address] dye infusion. (Patient not taking: Reported on 10/26/2023) acetaminophen (TYLENOL) 325 mg tablet Take 2 tablets by mouth every 6 hours as needed for pain. calcium carbonate (CALTRATE) 600 mg calcium (1,500 mg) tab Take by mouth. ferrous sulfate (IRON, FERROUS SULFATE,) 325 mg (65 mg iron) tablet Take 1 tablet by mouth twice daily with meals. cholecalciferol, vitamin D3, (VITAMIN D3 ORAL) Take by mouth once daily. No current facility-administered medications for this visit. ALLERGIES Allergen Reactions Latex, Natural Rubb* Rash, Intolerance, Itching Cephalexin Chlorhexidine Rash Diclofenac Iodine Rash During heart cath contrast dye Levaquin [Levofloxa* Rash Penicillins Rash Social History Tobacco Use Smoking status: Never Smokeless tobacco: Never Vaping Use Vaping status: Never Used Substance Use Topics Alcohol use: No Drug use: No ROS: See HPI PE: BP 150/82 Pulse 60 Temp (Src) 97 (Right Tympanic) Resp 16 Ht 5' 2.205 (1.58m) Wt 149 lb (67.6kg) BMI 27.07 kg/(m^2). Gen: A&OX3, NAD, non-toxic appearing HEENT: PERRLA, EOMs intact b/l, nares without drainage, pharynx without erythema, exudate, lesions, or drainage. Uvula midline. Neck: No LAD, no thyromegaly, no meningismus. CV: RRR, no murmur Lungs: CTA b/l, no wheezing Skin: No rashes, lesions, or wounds on exposed skin. Arthritis changes Abd: soft, NT, ND, normal BS, no masses, overweight No edema, normal pulses ASSESSMENT/PLAN: 1. Medicare annual wellness visit, subsequent - ICD9: V70.0, ICD10: Z00.00 (primary diagnosis) - Counseled on healthy diet and regular exercise - Discussed need and benefit for weight loss. BMI 27.07 kg/(m^2) 2. Fatty liver - ICD9: 571.8, ICD10: K76.0 Check labs and RUQ US and elastography testing as ordered Asymptomatic Found on MRI abdomen - US ABD RIGHT UPPER QUADRANT - US ELASTOGRAPHY LIVER - HEPATIC FUNCTION PNL 3. Vitamin D deficiency - ICD9: 268.9, ICD10: E55.9 - VITAMIN D 25 HYDROXY 4. Dyslipidemia - ICD9: 272.4, ICD10: E78.5 - Control undetermined, due for labs - Counseled on healthy diet and regular exercise - Discussed need for and benefit of weight loss. BMI 27.07 kg/(m^2) - LIPID PANEL, FASTING 5. Other iron deficiency anemia - ICD9: 280.8, ICD10: D50.8 Recheck labs Continue supplement - IRON AND TIBC - FERRITIN - COMPLETE BLOOD COUNT AND DIFFERENTIAL 6. Impaired fasting glucose - ICD9: 790.21, ICD10: R73.01 - HEMOGLOBIN A1C - COMPLETE BLOOD COUNT AND DIFFERENTIAL 7. Vitamin B 12 deficiency - ICD9: 266.2, ICD10: E53.8 - VITAMIN B12 Jagjit Matias DO Return if no improvement. Follow up with Jagjit Matias DO. To ER if develops chest pain, shortness of breath. Discussed risks, benefits, alternatives, and potential side effects of medications. Patient/Guardian expressed understanding and agreed with the plan. See patient instructions. Jagjit Matias DO [address] [place] [address] Images from the original note were not included. Letha Castro is a 84 year old female here for a Medicare wellness visit. Medicare Health Risk Assessment General Health Excellent Exercise: Minutes/Day 40 min Exercise: Days/Week 1 day Alcohol: Daily Use Never Alcohol: Drinks/Day Patient does not drink Alcohol: 6 or more drinks Never Feel off balance No Concerns: Teeth/Dentures No Concerns: Sexual function No Troubled by feelings None of the above Frequency: Eating healthy diet Nearly every day ADLs requiring help None of the above Safety precautions in home/vehicle Yes Smoke, vape, chews tobacco No Difficulty hearing Difficulty seeing No Current Providers Specialists: I have reviewed specialist-related care of the patient in the medical record. Medical/Family history review Reviewed and updated problem list, medical/surgical/family/social history, medications, and allergies. Opioid use review Opioid Medications (last 90 days) No data to display Anxiety/Depression screening PHQ-2 Score: 0 (Lower risk for depression) Recommendation: no further intervention at this time Cognitive screening Mini Cog Score: 5 Cognitive screening reviewed and No further action needed (score 3-5). Functional Observation Was the patient's Timed Up & Go test unsteady or >= 12 seconds? No Advance Care Planning Surrogate decision maker and/or advance care plan documented Measurements BP 150/82 Pulse 60 Temp 36.1 C (97 F) (Right Tympanic) Resp 16 Ht 158 cm (5' 2.21) Wt 67.6 kg (149 lb) BMI 27.07 kg/m Vision Screening: Follows with optometry/ophthalmology Assessment/Plan Medicare annual wellness visit, subsequent (Z00.00) - Counseled on healthy diet and regular exercise - Fall avoidance information provided - Personalized prevention plan provided - Discussed need for and benefit of weight loss. BMI 27.07 kg/(m^2) Jagjit Matias DO documented in this encounter [facility] 10-07-2024 Instructions Jagjit Matias DO - 10/07/2024 8:13 AM EDT Start on Vitamin E supplement 200-400 mg a day to help the fatty liver Lets check Elastography test of the liver at [facility] [phone] documented in this encounter [facility] 10-07-2024 Note HNO ID: [id number] Author: JAGJIT MATIAS DO Service: ? Author Type: Physician Type: Progress Notes Filed: 10/07/2024 11:43 Note Text: Letha Castro is a 84 year old female here for a Medicare wellness visit. Medicare Health Risk Assessment General Health Excellent Exercise: Minutes/Day 40 min Exercise: Days/Week 1 day Alcohol: Daily Use Never Alcohol: Drinks/Day Patient does not drink Alcohol: 6 or more drinks Never Feel off balance No Concerns: Teeth/Dentures No Concerns: Sexual function No Troubled by feelings None of the above Frequency: Eating healthy diet Nearly every day ADLs requiring help None of the above Safety precautions in home/vehicle Yes Smoke, vape, chews tobacco No Difficulty hearing Difficulty seeing No Current Providers Specialists: I have reviewed specialist-related care of the patient in the medical record. Medical/Family history review Reviewed and updated problem list, medical/surgical/family/social history, medications, and allergies. Opioid use review Opioid Medications (last 90 days) No data to display Anxiety/Depression screening PHQ-2 Score: 0 (Lower risk for depression) Recommendation: no further intervention at this time Cognitive screening Mini Cog Score: 5 Cognitive screening reviewed and No further action needed (score 3-5). Functional Observation Was the patient's Timed Up AND Go test unsteady or >= 12 seconds? No Advance Care Planning Surrogate decision maker and/or advance care plan documented Measurements BP 150/82 Pulse 60 Temp 36.1 ?C (97 ?F) (Right Tympanic) Resp 16 Ht 158 cm (5' 2.21) Wt 67.6 kg (149 lb) BMI 27.07 kg/m? Vision Screening: Follows with optometry/ophthalmology Assessment/Plan Medicare annual wellness visit, subsequent (Z00.00) - Counseled on healthy diet and regular exercise - Fall avoidance information provided - Personalized prevention plan provided - Discussed need for and benefit of weight loss. BMI 27.07 kg/(m2) Jagjit Matias DO [facility] 08-22-2024 History of Present illness Narrative Radiology Service Progress Note DATE OF SERVICE: August 22, 2024 TIME: 9:48 AM PATIENT IDENTITY VERIFICATION COMPLETED USING TWO (2) STANDARD IDENTIFIERS: Name and Date of confirmed by patient verbally. FALL SCREENING: Has the patient had 2 falls in the last year or 1 fall with injury or currently using an Ambulatory Assistive Device (Walker, Cane, Wheelchair, Crutches, etc.)? No PATIENT GENDER DATA: Assigned female at . status: : No status: NO. PATIENT RELEVANT IMPLANT DATA REVIEWED: Yes PATIENT PRESENTS WITH AN IMPLANTABLE OR ATTACHED CURING PICKLING PACKER: No ALLERGIES: Reviewed and unchanged CONTRAST ALLERGY: NO. EXAM: MRI - CONTRAST TYPE: GROUP II PERIPHERAL IV DATA: Ambulatory: A peripheral IV was started in the Left with a Angio cath: 22 gauge. RADIOLOGY DEPARTMENT: MR; Exam(s) Completed: Body: Renal. Lavender Administered: No SIGNATURE: RT Lorelei(R) PATIENT NAME: Letha Castro DATE: August 22, 2024 TIME: 9:48 AM documented in this encounter [facility] 08-22-2024 Note HNO ID: [id number] Author: AMELIE MELISSA RT(R) Service: ? Author Type: Technologist Type: Progress Notes Filed: 08/22/2024 09:49 Note Text: Radiology Service Progress Note DATE OF SERVICE: August 22, 2024 TIME: 9:48 AM PATIENT IDENTITY VERIFICATION COMPLETED USING TWO (2) STANDARD IDENTIFIERS: Name and Date of confirmed by patient verbally. FALL SCREENING: Has the patient had 2 falls in the last year or 1 fall with injury or currently using an Ambulatory Assistive Device (Walker, Cane, Wheelchair, Crutches, etc.)? No PATIENT GENDER DATA: Assigned female at . status: : No status: NO. PATIENT RELEVANT IMPLANT DATA REVIEWED: Yes PATIENT PRESENTS WITH AN IMPLANTABLE OR ATTACHED CURING PICKLING PACKER: No ALLERGIES: Reviewed and unchanged CONTRAST ALLERGY: NO. EXAM: MRI - CONTRAST TYPE: GROUP II PERIPHERAL IV DATA: Ambulatory: A peripheral IV was started in the Left with a Angio cath: 22 gauge. RADIOLOGY DEPARTMENT: MR; Exam(s) Completed: Body: Renal. Lavender Administered: No SIGNATURE: Amelie Melissa, RT(R) PATIENT NAME: Letha Castro DATE: August 22, 2024 TIME: 9:48 AM [facility] 08-22-2024 History of Present illness Narrative Radiology Service Progress Note PATIENT NAME: Letha Castro DATE OF SERVICE: August 22, 2024 TIME: 8:55 AM PATIENT IDENTITY VERIFICATION COMPLETED USING TWO (2) IDENTIFIERS: Name and Date of confirmed by patient verbally. FALL SCREENING: Has the patient had 2 falls in the last year or 1 fall with injury or currently using an Ambulatory Assistive Device (Walker, Cane, Wheelchair, Crutches, etc.)? No PATIENT GENDER DATA: Assigned female at . status: : No status: NO. PATIENT RELEVANT IMPLANT DATA REVIEWED: Not Applicable PATIENT PRESENTS WITH AN IMPLANTABLE OR ATTACHED CURING PICKLING PACKER: No RADIOLOGY DEPARTMENT: General X-ray: Exam(s) Completed: Chest X-Ray PERIPHERAL IV DATA: Not applicable SIGNED BY: Bharat Jolly August 22, 2024 8:55 AM documented in this encounter [facility] 08-22-2024 Note HNO ID: [id number] Author: VELMA VALLE Tech Service: ? Author Type: Technologist Type: Progress Notes Filed: 08/22/2024 09:06 Note Text: Radiology Service Progress Note PATIENT NAME: Letha Castro DATE OF SERVICE: August 22, 2024 TIME: 8:55 AM PATIENT IDENTITY VERIFICATION COMPLETED USING TWO (2) IDENTIFIERS: Name and Date of confirmed by patient verbally. FALL SCREENING: Has the patient had 2 falls in the last year or 1 fall with injury or currently using an Ambulatory Assistive Device (Walker, Cane, Wheelchair, Crutches, etc.)? No PATIENT GENDER DATA: Assigned female at . status: : No status: NO. PATIENT RELEVANT IMPLANT DATA REVIEWED: Not Applicable PATIENT PRESENTS WITH AN IMPLANTABLE OR ATTACHED CURING PICKLING PACKER: No RADIOLOGY DEPARTMENT: General X-ray: Exam(s) Completed: Chest X-Ray PERIPHERAL IV DATA: Not applicable SIGNED BY: Bharat Jolly August 22, 2024 8:55 AM [facility] 08-09-2024 Note HNO ID: [id number] Author: ROCKY LAROSE PT Service: ? Author Type: Physical Therapist Type: Progress Notes Filed: 08/09/2024 12:56 Note Text: Episode Visit Count: 6 Therapist That Will Accept/Oversee The Plan Of Care: Rocky Larose PT Start of Care Date: 07/10/24 Onset Date: 07/10/21 Plan of Care Certification Date: 07/10/24 Next Certification Due Date: 08/21/24 Patient Identified by Name and Date of : Yes REHABILITATION AND SPORTS THERAPY PHYSICAL THERAPY DISCONTINUANCE OF CARE PLAN OF CARE UPDATE: Assessment: Letha Castro is discontinued from Physical Therapy services due to goal achievement and maximal benefit. and Patient/Clinician mutual decision to discontinue current plan of care.. Patient was seen for 6 visits from Start of Care Date: 07/10/24 to 08/09/2024 and treatment included: Therapeutic exercise, Neuromuscular re-education, Self-[facility] management, Gait training, Patient/Family/Caregiver Education, Body mechanics training, and General conditioning. Updated: 08/09/24 Goals for Episode of Care: established 07/10/24 Patient will report no falls. - MET Improve score on Timed Up and Go Test to 8.54 seconds to reflect decreased fall risk. - MET Improve performance on 4 Stage Balance Test to symmetrical SLS to reflect decreased fall risk. - MET Earle in home exercise program including cardiovascular exercise. - MET Perform all functional mobility with decreased report of symptoms / pain. - MET Increase strength of LEs(especially R hip abductors) to WFL in order to normalize gait. - Mostly MET Patient Goals: improve balance and improve safety with functional mobility. - MET SUBJECTIVE: Pt reports that overall she is doing well and improved since starting therapy 07/10/24. She reports compliance with HEP 2x day with good results. She feels that she is walking better and denies any true balance problems. Pain: Pain Pain Level: 0 Post Treatment Pain Post Treatment Pain Level: No Change PROMIS Scales 08/09/2024 08/08/2024 07/26/2024 Higher is Better Phys Func - T Score 51 (within normal limits) Phys Func - Percentile 54 Self-Eff Symptom - T Score 69 (High) Self-Eff Symptom - Percentile 97 Mobility - T Score 46 (within normal limits) 48 (within normal limits) Mobility - Percentile 34 42 Proxy-reported T-scores: mean of general population = 50. 5 points is clinically meaningfully difference Percentiles provide an indication of how the patient's score ranks in relation to the general population. Higher percentile rankings indicate better function/quality of life. 50th percentile is the average of the general population and indicates half of respondents had a worse score. OBJECTIVE MEASURES WITH LEVEL OF FUNCTION: Gait Gait Observation: Pt gait is considerably improved with less lateral trunk sway and symmetrical step lengths. Functional Performance Test Results Timed Up and Go (sec): 8.2 sec 4 Stage Balance Test Tandem base of support (sec): 90 sec Single leg stance - right (sec): 22 sec Single leg stance - left (sec): 59 sec TREATMENT: Therapeutic Exercise: 1: [employer] StepOne seat #11 x6 minutes (1:1 throughout. Pt provided an update on her condition and subjective portion of goals assessed.) 2: seated B DF/PF reviewed for HEP and continuation encouraged 3: seated B alt hip flexion marching reviewed for HEP and continuation encouraged 4: seated B alt knee extension reviewed for HEP and continuation encouraged 5: B sidelying hip abduction reviewed for HEP and continuation encouraged with emphasis on form to isolate hip abductors 6: B sidelying clam shells reviewed for HEP and continuation encouraged Skilled Intervention: Patient was educated in proper exercise technique and purpose for exercises. Skilled judgment was used in selection of appropriate interventions. Correct performance of therapeutic exercises was facilitated with verbal, visual, and tactile cuing. Neuromuscular Re-Education: 1: Re-assessment results were reviewed with pt and used as rationale for d/c recommendations. 2: Gait pattern reviewed and the role of increased strength in B hip abductors explained in regards to Trendelenburg pattern. Skilled Intervention: Skilled judgment used to assess appropriate program for balance and coordination activity. Ensured patient safety with use of gait belt. Billing Therapeutic Exercise Treatment Minutes: 24 Neuromuscular Re-Education Treatment Minutes: 15 Skilled Treatment Time Minutes (timed and untimed codes): 39 Total Session Time (minutes): 39 Session Start Time : 1116 Session Stop Time : 1155 Rocky Larose PT [facility] 08-09-2024 History of Present illness Narrative Images from the original note were not included. Episode Visit Count: 6 Therapist That Will Accept/Oversee The Plan Of Care: Rocky Larose PT Start of Care Date: 07/10/24 Onset Date: 07/10/21 Plan of Care Certification Date: 07/10/24 Next Certification Due Date: 08/21/24 Patient Identified by Name and Date of : Yes REHABILITATION AND SPORTS THERAPY PHYSICAL THERAPY DISCONTINUANCE OF CARE PLAN OF CARE UPDATE: Assessment: Letha Castro is discontinued from Physical Therapy services due to goal achievement and maximal benefit. and Patient/Clinician mutual decision to discontinue current plan of care.. Patient was seen for 6 visits from Start of Care Date: 07/10/24 to 08/09/2024 and treatment included: Therapeutic exercise, Neuromuscular re-education, Self-[place] [facility] management, Gait training, Patient/Family/Caregiver Education, Body mechanics training, and General conditioning. Updated: 08/09/24 Goals for Episode of Care: established 07/10/24 Patient will report no falls. - MET Improve score on Timed Up and Go Test to 8.54 seconds to reflect decreased fall risk. - MET Improve performance on 4 Stage Balance Test to symmetrical SLS to reflect decreased fall risk. - MET Earle in home exercise program including cardiovascular exercise. - MET Perform all functional mobility with decreased report of symptoms / pain. - MET Increase strength of LEs(especially R hip abductors) to WFL in order to normalize gait. - Mostly MET Patient Goals: improve balance and improve safety with functional mobility. - MET SUBJECTIVE: Pt reports that overall she is doing well and improved since starting therapy 07/10/24. She reports compliance with HEP 2x day with good results. She feels that she is walking better and denies any true balance problems. Pain: Pain Pain Level: 0 Post Treatment Pain Post Treatment Pain Level: No Change PROMIS Scales 08/09/2024 08/08/2024 07/26/2024 Higher is Better Phys Func - T Score 51 (within normal limits) Phys Func - Percentile 54 Self-Eff Symptom - T Score 69 (High) Self-Eff Symptom - Percentile 97 Mobility - T Score 46 (within normal limits) 48 (within normal limits) Mobility - Percentile 34 42 Proxy-reported T-scores: mean of general population = 50. 5 points is clinically meaningfully difference Percentiles provide an indication of how the patient's score ranks in relation to the general population. Higher percentile rankings indicate better function/quality of life. 50th percentile is the average of the general population and indicates half of respondents had a worse score. OBJECTIVE MEASURES WITH LEVEL OF FUNCTION: Gait Gait Observation: Pt gait is considerably improved with less lateral trunk sway and symmetrical step lengths. Functional Performance Test Results Timed Up and Go (sec): 8.2 sec 4 Stage Balance Test Tandem base of support (sec): 90 sec Single leg stance - right (sec): 22 sec Single leg stance - left (sec): 59 sec TREATMENT: Therapeutic Exercise: 1: [employer] StepOne seat #11 x6 minutes (1:1 throughout. Pt provided an update on her condition and subjective portion of goals assessed.) 2: seated B DF/PF reviewed for HEP and continuation encouraged 3: seated B alt hip flexion marching reviewed for HEP and continuation encouraged 4: seated B alt knee extension reviewed for HEP and continuation encouraged 5: B sidelying hip abduction reviewed for HEP and continuation encouraged with emphasis on form to isolate hip abductors 6: B sidelying clam shells reviewed for HEP and continuation encouraged Skilled Intervention: Patient was educated in proper exercise technique and purpose for exercises. Skilled judgment was used in selection of appropriate interventions. Correct performance of therapeutic exercises was facilitated with verbal, visual, and tactile cuing. Neuromuscular Re-Education: 1: Re-assessment results were reviewed with pt and used as rationale for d/c recommendations. 2: Gait pattern reviewed and the role of increased strength in B hip abductors explained in regards to Trendelenburg pattern. Skilled Intervention: Skilled judgment used to assess appropriate program for balance and coordination activity. Ensured patient safety with use of gait belt. Billing Therapeutic Exercise Treatment Minutes: 24 Neuromuscular Re-Education Treatment Minutes: 15 Skilled Treatment Time Minutes (timed and untimed codes): 39 Total Session Time (minutes): 39 Session Start Time : 1116 Session Stop Time : 1155 Rocky Larose PT documented in this encounter [facility] 08-08-2024 Note HNO ID: [id number] Author: ROCKY LAROSE PT Service: ? Author Type: Physical Therapist Type: Progress Notes Filed: 08/08/2024 11:33 Note Text: Episode Visit Count: 5 Therapist That Will Accept/Oversee The Plan Of Care: Rocky Larose PT Start of Care Date: 07/10/24 Onset Date: 07/10/21 Plan of Care Certification Date: 07/10/24 Next Certification Due Date: 08/21/24 Patient Identified by Name and Date of : Yes REHABILITATION AND SPORTS THERAPY PHYSICAL THERAPY TREATMENT NOTE ASSESSMENT: Letha Castro tolerated the session with fatigue and no issues. She demonstrated improvements in balance and exercise tolerance. The patient will continue to benefit from ongoing skilled physical therapy to progress toward set goals. PLAN FOR NEXT VISIT: Review, correct and progress HEP to tolerance. Focus on gait training and B LE strengthening, especially R LE during stance phase of gait. Address hip abduction strength. Balance training prn, especially R SLS. SUBJECTIVE: Pt reports that overall she has not noticed any changes since last session. She reports compliance with HEP 2x day most days. She denies any pain to start today. Pain: Pain Pain Level: 0 Post Treatment Pain Post Treatment Pain Level: No Change OBJECTIVE MEASURES WITH LEVEL OF FUNCTION: TREATMENT: Therapeutic Exercise: 1: [employer] StepOne seat #11 x6 minutes (1:1 throughout. Pt provided an update on her condition and plan of care reviewed) 2: repeated sit to stand from valadez mat table (18 inches high) with 15# ball in hands 2x15. 3: lateral step ups on and over dome side of BOSU 2x12 at // bars 4: HEP reviewed, corrected and continuation encouraged. Skilled Intervention: Patient was educated in proper exercise technique and purpose for exercises. Skilled judgment was used in selection of appropriate interventions. Correct performance of therapeutic exercises was facilitated with verbal and visual cuing. Patient education as noted. Neuromuscular Re-Education: 1: forward stepping over 6 red 6 inch hurdles x2 passes 2: side stepping over 6 red 6 inch hurdles x2 pass right and x2 pass left 3: B tandem stance x30 seconds eyes open and x30 seconds eyes closed each 4: B SLS 2x30 seconds each Skilled Intervention: Skilled judgment used to assess appropriate program for balance and coordination activity. Ensured patient safety with use of gait belt and intermittent assist Billing Therapeutic Exercise Treatment Minutes: 22 Neuromuscular Re-Education Treatment Minutes: 20 Skilled Treatment Time Minutes (timed and untimed codes): 42 Total Session Time (minutes): 42 Session Start Time : 1046 Session Stop Time : 1128 Rocky Larose PT [facility] 08-08-2024 History of Present illness Narrative Episode Visit Count: 5 Therapist That Will Accept/Oversee The Plan Of Care: Rocky Larose PT Start of Care Date: 07/10/24 Onset Date: 07/10/21 Plan of Care Certification Date: 07/10/24 Next Certification Due Date: 08/21/24 Patient Identified by Name and Date of : Yes REHABILITATION AND SPORTS THERAPY PHYSICAL THERAPY TREATMENT NOTE ASSESSMENT: Letha Castro tolerated the session with fatigue and no issues. She demonstrated improvements in balance and exercise tolerance. The patient will continue to benefit from ongoing skilled physical therapy to progress toward set goals. PLAN FOR NEXT VISIT: Review, correct and progress HEP to tolerance. Focus on gait training and B LE strengthening, especially R LE during stance phase of gait. Address hip abduction strength. Balance training prn, especially R SLS. SUBJECTIVE: Pt reports that overall she has not noticed any changes since last session. She reports compliance with HEP 2x day most days. She denies any pain to start today. Pain: Pain Pain Level: 0 Post Treatment Pain Post Treatment Pain Level: No Change OBJECTIVE MEASURES WITH LEVEL OF FUNCTION: TREATMENT: Therapeutic Exercise: 1: [employer] StepOne seat #11 x6 minutes (1:1 throughout. Pt provided an update on her condition and plan of care reviewed) 2: repeated sit to stand from valadez mat table (18 inches high) with 15# ball in hands 2x15. 3: lateral step ups on and over dome side of BOSU 2x12 at // bars 4: HEP reviewed, corrected and continuation encouraged. Skilled Intervention: Patient was educated in proper exercise technique and purpose for exercises. Skilled judgment was used in selection of appropriate interventions. Correct performance of therapeutic exercises was facilitated with verbal and visual cuing. Patient education as noted. Neuromuscular Re-Education: 1: forward stepping over 6 red 6 inch hurdles x2 passes 2: side stepping over 6 red 6 inch hurdles x2 pass right and x2 pass left 3: B tandem stance x30 seconds eyes open and x30 seconds eyes closed each 4: B SLS 2x30 seconds each Skilled Intervention: Skilled judgment used to assess appropriate program for balance and coordination activity. Ensured patient safety with use of gait belt and intermittent assist Billing Therapeutic Exercise Treatment Minutes: 22 Neuromuscular Re-Education Treatment Minutes: 20 Skilled Treatment Time Minutes (timed and untimed codes): 42 Total Session Time (minutes): 42 Session Start Time : 1046 Session Stop Time : 1128 Rocky Larose PT documented in this encounter [facility] 07-29-2024 Note HNO ID: [id number] Author: ROCKY LAROSE PT Service: ? Author Type: Physical Therapist Type: Progress Notes Filed: 07/29/2024 10:47 Note Text: Episode Visit Count: 4 Therapist That Will Accept/Oversee The Plan Of Care: Rocky Larose PT Start of Care Date: 07/10/24 Onset Date: 07/10/21 Plan of Care Certification Date: 07/10/24 Next Certification Due Date: 08/21/24 Patient Identified by Name and Date of : Yes REHABILITATION AND SPORTS THERAPY PHYSICAL THERAPY TREATMENT NOTE ASSESSMENT: Letha Castro tolerated the session with fatigue, expected muscle soreness, and no issues. She demonstrated improvements in gait and balance. The patient will continue to benefit from ongoing skilled physical therapy to progress toward set goals. PLAN FOR NEXT VISIT: Review, correct and progress HEP to tolerance. Focus on gait training and B LE strengthening, especially R LE during stance phase of gait. Address hip abduction strength. Balance training prn, especially R SLS. SUBJECTIVE: Pt reports that overall she is feeling better. She reports less lateral trunk sway and less waddling. She denies any pain or problems following last session. Pain: Pain Pain Level: 0 Post Treatment Pain Post Treatment Pain Level: No Change Post Treatment Symptoms: Pt denied any pain or problems but did report fatigue after today's session. OBJECTIVE MEASURES WITH LEVEL OF FUNCTION: TREATMENT: Therapeutic Exercise: 1: [employer] StepOne seat #11 x6 minutes (1:1 throughout. Pt provided an update on her condition and plan of care reviewed) 5: B sidelying hip abduction 2x10 with emphasis on form to isolate hip abductors 1.5# weights 6: B sidelying clam shells 2x10 with 1.5# weight 7: repeated sit to stand from green mat table(lowest setting) with 15# ball in hands 2x10. 8: lateral step ups on and over dome side of BOSU 2x10 at // bars 9: HEP reviewed, corrected and continuation encouraged. Skilled Intervention: Patient was educated in proper exercise technique and purpose for exercises. Skilled judgment was used in selection of appropriate interventions. Correct performance of therapeutic exercises was facilitated with verbal, visual, and tactile cuing. Patient education as noted. Neuromuscular Re-Education: 1: forward stepping over 6 red 6 inch hurdles x2 passes 2: side stepping over 6 red 6 inch hurdles x1 pass right and x1 pass left 3: B tandem stance 2x30 seconds each 4: B SLS 2x30 seconds Skilled Intervention: Skilled judgment used to assess appropriate program for balance and coordination activity. Ensured patient safety with use of gait belt and intermittent assist. Billing Therapeutic Exercise Treatment Minutes: 30 Neuromuscular Re-Education Treatment Minutes: 20 Skilled Treatment Time Minutes (timed and untimed codes): 50 Total Session Time (minutes): 50 Session Start Time : 929 Session Stop Time : 1020 Rocky Larose PT [facility] 07-29-2024 History of Present illness Narrative Episode Visit Count: 4 Therapist That Will Accept/Oversee The Plan Of Care: Rocky Larose PT Start of Care Date: 07/10/24 Onset Date: 07/10/21 Plan of Care Certification Date: 07/10/24 Next Certification Due Date: 08/21/24 Patient Identified by Name and Date of : Yes REHABILITATION AND SPORTS THERAPY PHYSICAL THERAPY TREATMENT NOTE ASSESSMENT: Letha Castro tolerated the session with fatigue, expected muscle soreness, and no issues. She demonstrated improvements in gait and balance. The patient will continue to benefit from ongoing skilled physical therapy to progress toward set goals. PLAN FOR NEXT VISIT: Review, correct and progress HEP to tolerance. Focus on gait training and B LE strengthening, especially R LE during stance phase of gait. Address hip abduction strength. Balance training prn, especially R SLS. SUBJECTIVE: Pt reports that overall she is feeling better. She reports less lateral trunk sway and less waddling. She denies any pain or problems following last session. Pain: Pain Pain Level: 0 Post Treatment Pain Post Treatment Pain Level: No Change Post Treatment Symptoms: Pt denied any pain or problems but did report fatigue after today's session. OBJECTIVE MEASURES WITH LEVEL OF FUNCTION: TREATMENT: Therapeutic Exercise: 1: [employer] StepOne seat #11 x6 minutes (1:1 throughout. Pt provided an update on her condition and plan of care reviewed) 5: B sidelying hip abduction 2x10 with emphasis on form to isolate hip abductors 1.5# weights 6: B sidelying clam shells 2x10 with 1.5# weight 7: repeated sit to stand from green mat table(lowest setting) with 15# ball in hands 2x10. 8: lateral step ups on and over dome side of BOSU 2x10 at // bars 9: HEP reviewed, corrected and continuation encouraged. Skilled Intervention: Patient was educated in proper exercise technique and purpose for exercises. Skilled judgment was used in selection of appropriate interventions. Correct performance of therapeutic exercises was facilitated with verbal, visual, and tactile cuing. Patient education as noted. Neuromuscular Re-Education: 1: forward stepping over 6 red 6 inch hurdles x2 passes 2: side stepping over 6 red 6 inch hurdles x1 pass right and x1 pass left 3: B tandem stance 2x30 seconds each 4: B SLS 2x30 seconds Skilled Intervention: Skilled judgment used to assess appropriate program for balance and coordination activity. Ensured patient safety with use of gait belt and intermittent assist. Billing Therapeutic Exercise Treatment Minutes: 30 Neuromuscular Re-Education Treatment Minutes: 20 Skilled Treatment Time Minutes (timed and untimed codes): 50 Total Session Time (minutes): 50 Session Start Time : 0930 Session Stop Time : 1020 Rocky Larose PT documented in this encounter [facility] 07-26-2024 Note HNO ID: [id number] Author: ROCKY LAROSE PT Service: ? Author Type: Physical Therapist Type: Progress Notes Filed: 07/26/2024 16:17 Note Text: Episode Visit Count: 3 Therapist That Will Accept/Oversee The Plan Of Care: Rocky Larose PT Start of Care Date: 07/10/24 Onset Date: 07/10/21 Plan of Care Certification Date: 07/10/24 Next Certification Due Date: 08/21/24 Patient Identified by Name and Date of : Yes REHABILITATION AND SPORTS THERAPY PHYSICAL THERAPY TREATMENT NOTE ASSESSMENT: Letha Castro tolerated the session with fatigue, expected muscle soreness, and no issues. She demonstrated improvements in exercise tolerance but still challenged with high level balance exercises. The patient will continue to benefit from ongoing skilled physical therapy to progress toward set goals. PLAN FOR NEXT VISIT: Review, correct and progress HEP to tolerance. Focus on gait training and B LE strengthening, especially R LE during stance phase of gait. Address hip abduction strength. Balance training prn, especially R SLS. SUBJECTIVE: Pt denies any pain or problems following last session. She reports compliance with HEP and denies any falls. She reports being tired in general today because it is the end of the week. Pain: Pain Pain Level: 0 Description: (no pain to start today) Post Treatment Pain Post Treatment Pain Level: No Change Post Treatment Symptoms: Pt reported fatigue from a good workout but she denied any increase in pain or problems. OBJECTIVE MEASURES WITH LEVEL OF FUNCTION: TREATMENT: Therapeutic Exercise: 1: [employer] StepOne seat #11 x6 minutes (1:1 throughout. Pt provided an update on her condition and plan of care reviewed) 2: seated B DF/PF x20 3: seated B alt hip flexion marching x10 4: seated B alt knee extension x10 5: B sidelying hip abduction 2x10 with emphasis on form to isolate hip abductors 6: B sidelying clam shells 2x10 7: repeated sit to stand from gayle mat table(19) 2x10 8: lateral step ups on and over dome side of BOSU 2x10 at // bars 9: HEP reviewed, corrected and continuation encouraged. Skilled Intervention: Patient was educated in proper exercise technique and purpose for exercises. Skilled judgment was used in selection of appropriate interventions. Correct performance of therapeutic exercises was facilitated with verbal, visual, and tactile cuing. Patient education as noted. Neuromuscular Re-Education: 1: forward stepping over 6 red 6 inch hurdles x2 passes 2: side stepping over 6 red 6 inch hurdles x1 pass right and x1 pass left 3: B tandem stance 2x30 seconds each 4: B SLS 2x30 seconds 5: NBOS on square blue foam 2x30 seconds eyes open and 2x30 seconds eyes closed Skilled Intervention: Skilled judgment used to assess appropriate program for balance and coordination activity. Ensured patient safety with use of gait belt and intermittent assist. Billing Therapeutic Exercise Treatment Minutes: 30 Neuromuscular Re-Education Treatment Minutes: 18 Skilled Treatment Time Minutes (timed and untimed codes): 48 Total Session Time (minutes): 48 Session Start Time : 1503 Session Stop Time : 1551 Rocky Larose PT [facility] 07-26-2024 History of Present illness Narrative Episode Visit Count: 3 Therapist That Will Accept/Oversee The Plan Of Care: Rocky Larose PT Start of Care Date: 07/10/24 Onset Date: 07/10/21 Plan of Care Certification Date: 07/10/24 Next Certification Due Date: 08/21/24 Patient Identified by Name and Date of : Yes REHABILITATION AND SPORTS THERAPY PHYSICAL THERAPY TREATMENT NOTE ASSESSMENT: Letha Castro tolerated the session with fatigue, expected muscle soreness, and no issues. She demonstrated improvements in exercise tolerance but still challenged with high level balance exercises. The patient will continue to benefit from ongoing skilled physical therapy to progress toward set goals. PLAN FOR NEXT VISIT: Review, correct and progress HEP to tolerance. Focus on gait training and B LE strengthening, especially R LE during stance phase of gait. Address hip abduction strength. Balance training prn, especially R SLS. SUBJECTIVE: Pt denies any pain or problems following last session. She reports compliance with HEP and denies any falls. She reports being tired in general today because it is the end of the week. Pain: Pain Pain Level: 0 Description: (no pain to start today) Post Treatment Pain Post Treatment Pain Level: No Change Post Treatment Symptoms: Pt reported fatigue from a good workout but she denied any increase in pain or problems. OBJECTIVE MEASURES WITH LEVEL OF FUNCTION: TREATMENT: Therapeutic Exercise: 1: [employer] StepOne seat #11 x6 minutes (1:1 throughout. Pt provided an update on her condition and plan of care reviewed) 2: seated B DF/PF x20 3: seated B alt hip flexion marching x10 4: seated B alt knee extension x10 5: B sidelying hip abduction 2x10 with emphasis on form to isolate hip abductors 6: B sidelying clam shells 2x10 7: repeated sit to stand from gayle mat table(19) 2x10 8: lateral step ups on and over dome side of BOSU 2x10 at // bars 9: HEP reviewed, corrected and continuation encouraged. Skilled Intervention: Patient was educated in proper exercise technique and purpose for exercises. Skilled judgment was used in selection of appropriate interventions. Correct performance of therapeutic exercises was facilitated with verbal, visual, and tactile cuing. Patient education as noted. Neuromuscular Re-Education: 1: forward stepping over 6 red 6 inch hurdles x2 passes 2: side stepping over 6 red 6 inch hurdles x1 pass right and x1 pass left 3: B tandem stance 2x30 seconds each 4: B SLS 2x30 seconds 5: NBOS on square blue foam 2x30 seconds eyes open and 2x30 seconds eyes closed Skilled Intervention: Skilled judgment used to assess appropriate program for balance and coordination activity. Ensured patient safety with use of gait belt and intermittent assist. Billing Therapeutic Exercise Treatment Minutes: 30 Neuromuscular Re-Education Treatment Minutes: 18 Skilled Treatment Time Minutes (timed and untimed codes): 48 Total Session Time (minutes): 48 Session Start Time : 1503 Session Stop Time : 1551 Rocky Larose PT documented in this encounter [facility] 07-25-2024 Note HNO ID: [id number] Author: ROCKY LAROSE PT Service: ? Author Type: Physical Therapist Type: Progress Notes Filed: 07/25/2024 11:27 Note Text: Episode Visit Count: 2 Therapist That Will Accept/Oversee The Plan Of Care: Rocky Larose PT Start of Care Date: 07/10/24 Onset Date: 07/10/21 Plan of Care Certification Date: 07/10/24 Next Certification Due Date: 08/21/24 Patient Identified by Name and Date of : Yes REHABILITATION AND SPORTS THERAPY PHYSICAL THERAPY TREATMENT NOTE ASSESSMENT: Letha Castro tolerated the session with fatigue and no issues. She demonstrated improvements in hip ROM and functional mobility. The patient will continue to benefit from ongoing skilled physical therapy to progress toward set goals. PLAN FOR NEXT VISIT: Review, correct and progress HEP to tolerance. Focus on gait training and B LE strengthening, especially R LE during stance phase of gait. Address hip abduction strength. Balance training prn, especially R SLS. SUBJECTIVE: Pt reports that since evaluation she feels that she is better. She reports that L hip AROM is improved. She reports compliance with HEP 3-4x day. She reports that she has not noticed any difference in her balance. She denies any falls since last session. Pain: Pain Pain Level: 0 Post Treatment Pain Post Treatment Pain Level: No Change Post Treatment Symptoms: After session today, pt reported fatigue from a good workout but she denied any increase in pain OBJECTIVE MEASURES WITH LEVEL OF FUNCTION: TREATMENT: Therapeutic Exercise: 1: [employer] StepOne seat #11 x5 minutes (1:1 throughout. Pt provided an update on her condition and plan of care reviewed) 2: seated B DF/PF x20 3: seated B alt hip flexion marching x10 4: seated B alt knee extension x10 5: *B sidelying hip abduction 2x10 with emphasis on form to isolate hip abductors 6: *B sidelying clam shells 2x10 7: repeated sit to stand from green mat table 2x10 Skilled Intervention: Patient was educated in proper exercise technique and purpose for exercises. Reviewed and educated patient on additions/changes for home exercise program as above (*). Skilled judgment was used in selection of appropriate interventions. Provided written instruction for home exercise program to facilitate proper performance and compliance. Correct performance of therapeutic exercises was facilitated with verbal, visual, and tactile cuing. Patient education as noted. Neuromuscular Re-Education: 1: NBOS eyes open x30 seconds 2: NBOS eyes closed x30 seconds 3: B tandem stance x30 seconds each 4: B SLS 2x30 seconds 5: NBOS on square blue foam 2x30 seconds eyes open and 2x30 seconds eyes closed Skilled Intervention: Skilled judgment used to assess appropriate program for balance and coordination activity. Ensured patient safety with use of gait belt and intermittent assist Gait Trainin: Pt questions about stair negotiation answered. Trendelenburg gait explained. Skilled Intervention: Facilitated proper gait cycle with the use of verbal and visual cues for correction of gait deviations identified in the objective section above. Education provided to patient regarding the proper sequence for stair negotiation. Billing Therapeutic Exercise Treatment Minutes: 25 Neuromuscular Re-Education Treatment Minutes: 14 Gait Training Treatment Minutes: 5 Skilled Treatment Time Minutes (timed and untimed codes): 44 Total Session Time (minutes): 44 Session Start Time : 1004 Session Stop Time : 1048 Rocky Larose PT [facility] 07-25-2024 History of Present illness Narrative Episode Visit Count: 2 Therapist That Will Accept/Oversee The Plan Of Care: Rocky Larose PT Start of Care Date: 07/10/24 Onset Date: 07/10/21 Plan of Care Certification Date: 07/10/24 Next Certification Due Date: 08/21/24 Patient Identified by Name and Date of : Yes REHABILITATION AND SPORTS THERAPY PHYSICAL THERAPY TREATMENT NOTE ASSESSMENT: Letha Castro tolerated the session with fatigue and no issues. She demonstrated improvements in hip ROM and functional mobility. The patient will continue to benefit from ongoing skilled physical therapy to progress toward set goals. PLAN FOR NEXT VISIT: Review, correct and progress HEP to tolerance. Focus on gait training and B LE strengthening, especially R LE during stance phase of gait. Address hip abduction strength. Balance training prn, especially R SLS. SUBJECTIVE: Pt reports that since evaluation she feels that she is better. She reports that L hip AROM is improved. She reports compliance with HEP 3-4x day. She reports that she has not noticed any difference in her balance. She denies any falls since last session. Pain: Pain Pain Level: 0 Post Treatment Pain Post Treatment Pain Level: No Change Post Treatment Symptoms: After session today, pt reported fatigue from a good workout but she denied any increase in pain OBJECTIVE MEASURES WITH LEVEL OF FUNCTION: TREATMENT: Therapeutic Exercise: 1: [employer] StepOne seat #11 x5 minutes (1:1 throughout. Pt provided an update on her condition and plan of care reviewed) 2: seated B DF/PF x20 3: seated B alt hip flexion marching x10 4: seated B alt knee extension x10 5: *B sidelying hip abduction 2x10 with emphasis on form to isolate hip abductors 6: *B sidelying clam shells 2x10 7: repeated sit to stand from green mat table 2x10 Skilled Intervention: Patient was educated in proper exercise technique and purpose for exercises. Reviewed and educated patient on additions/changes for home exercise program as above (*). Skilled judgment was used in selection of appropriate interventions. Provided written instruction for home exercise program to facilitate proper performance and compliance. Correct performance of therapeutic exercises was facilitated with verbal, visual, and tactile cuing. Patient education as noted. Neuromuscular Re-Education: 1: NBOS eyes open x30 seconds 2: NBOS eyes closed x30 seconds 3: B tandem stance x30 seconds each 4: B SLS 2x30 seconds 5: NBOS on square blue foam 2x30 seconds eyes open and 2x30 seconds eyes closed Skilled Intervention: Skilled judgment used to assess appropriate program for balance and coordination activity. Ensured patient safety with use of gait belt and intermittent assist Gait Trainin: Pt questions about stair negotiation answered. Trendelenburg gait explained. Skilled Intervention: Facilitated proper gait cycle with the use of verbal and visual cues for correction of gait deviations identified in the objective section above. Education provided to patient regarding the proper sequence for stair negotiation. Billing Therapeutic Exercise Treatment Minutes: 25 Neuromuscular Re-Education Treatment Minutes: 14 Gait Training Treatment Minutes: 5 Skilled Treatment Time Minutes (timed and untimed codes): 44 Total Session Time (minutes): 44 Session Start Time : 1004 Session Stop Time : 1048 Rocky Larose PT Program_ID:[id number] Access Code: [email or web address] URL: [email or web address] Date: 07-25-2024 Prepared By: Rocky Larose Program Notes Exercises - Sidelying Hip Abduction - 2 x daily - 7 x weekly - 2 sets - 10 reps - Clamshell - 2 x daily - 7 x weekly - 2 sets - 10 reps documented in this encounter [facility] 07-10-2024 Note HNO ID: [id number] Author: ROCKY LAROSE PT Service: ? Author Type: Physical Therapist Type: Progress Notes Filed: 07/10/2024 17:05 Note Text: Episode Visit Count: 1 Therapist That Will Accept/Oversee The Plan Of Care: Rocky Larose PT Start of Care Date: 07/10/24 Onset Date: 07/10/21 Plan of Care Certification Date: 07/10/24 Next Certification Due Date: 08/21/24 Patient Identified by Name and Date of : Yes REHABILITATION AND SPORTS THERAPY PHYSICAL THERAPY EVALUATION PLAN OF CARE: Assessment: Letha Castro presents with chief complaint of functional mobility weakness and instability that interferes with walking . The patient presents with impairments in ADL's, balance, gait, independence in exercise, overall function, and strength. PROMIS? (Patient-Reported Outcomes Measurement Information System) scores were reviewed and identified as within normal limits. Prognosis for therapy is Good due to: current objective clinical presentation, good overall health status, within-session changes, good support system/ coping skills. The patient will benefit from skilled therapy services to meet the goals established for this plan of care as noted below. Assessment Fall Risk : Active at risk Goals for Episode of Care: established 07/10/24 Patient will report no falls. Improve score on Timed Up and Go Test to 8.54 seconds to reflect decreased fall risk. Improve performance on 4 Stage Balance Test to symmetrical SLS to reflect decreased fall risk. Earle in home exercise program including cardiovascular exercise. Perform all functional mobility with decreased report of symptoms / pain. Increase strength of LEs(especially R hip abductors) to WFL in order to normalize gait. Patient Goals: improve balance and improve safety with functional mobility. Time Frame for Goals and Treatment : 08/21/24 Planned Interventions, Frequency, and Duration: Current Frequency: 2x/week Duration: 6 weeks Total Number of Visits Planned: 12 Planned Treatment Interventions: Therapeutic exercise (99574), Neuromuscular re-education (30193), Manual therapy (15223), Therapeutic activities (15628), Self-[place] [facility] [place] management (58338), Gait Training (84064), Patient/Family/Caregiver Education, Body Mechanics Training, General Conditioning, Functional training PLAN FOR NEXT VISIT: Review, correct and progress HEP to tolerance. Focus on gait training and B LE strengthening, especially R LE during stance phase of gait. Address hip abduction strength. Balance training prn, especially R SLS. Patient demonstrates good understanding of plan of care and treatment. The above goals and plan of care were discussed and agreed upon by patient/family. SUBJECTIVE: Pt reports balance and gait deficits that began approximately 3 years ago and are staying the same. She denies any falls. She reports being very active and wants to stay that way but reports gait abnormalities. Patient Goals: improve balance and improve safety with functional mobility. Functional Limitations: walking Prior Level of Function: Independent without limitations Relevant History Employment: Retired Home Environment Patient Lives With: Spouse Equipment Owned: Walker- Wheeled Intake Information: Prescription present Previous Treatment: None Falls Interview: No positive findings with falls interview Falls History # of falls in past year: 0 # of falls resulting in an injury in past year: 0 Pain: Pain Pain Level: 0 Post Treatment Pain Post Treatment Pain Level: No Change Post Treatment Symptoms: After session today, pt reported increased optimism about her PT plan and increased confidence with her rehab potential and prognosis. PROMIS Scales 07/10/2024 Higher is Better Self-Eff Symptom - T Score 66 (High) Self-Eff Symptom - Percentile 95 Mobility - T Score 46 (within normal limits) Mobility - Percentile 34 Proxy-reported T-scores: mean of general population = 50. 5 points is clinically meaningfully difference Percentiles provide an indication of how the patient's score ranks in relation to the general population. Higher percentile rankings indicate better function/quality of life. 50th percentile is the average of the general population and indicates half of respondents had a worse score. OBJECTIVE MEASURES WITH LEVEL OF FUNCTION: Gait Gait Observation: Pt has asymmetrical step lengths with short left step and reluctance to increase R stance time. She has Trendelenburg pattern with left side pelvis drop in R stance. Pattern is generally antalgic. Functional Performance Test Results Assistive Device: None 30 Second Chair Stand Test: 14 reps Timed Up and Go (sec): 9.17 sec 4 Stage Balance Test Narrow base of support (sec): 10 sec Semi-tandem base of support (sec): 10 sec Tandem base of support (sec): 10 sec Single leg stance - right (sec): 3 sec Single leg stance - left (sec): 22 sec (more content not included)... [facility] 07-10-2024 History of Present illness Narrative Images from the original note were not included. Episode Visit Count: 1 Therapist That Will Accept/Oversee The Plan Of Care: Rocky Larose PT Start of Care Date: 07/10/24 Onset Date: 07/10/21 Plan of Care Certification Date: 07/10/24 Next Certification Due Date: 08/21/24 Patient Identified by Name and Date of : Yes REHABILITATION AND SPORTS THERAPY PHYSICAL THERAPY EVALUATION PLAN OF CARE: Assessment: Letha Castro presents with chief complaint of functional mobility weakness and instability that interferes with walking . The patient presents with impairments in ADL's, balance, gait, independence in exercise, overall function, and strength. PROMIS (Patient-Reported Outcomes Measurement Information System) scores were reviewed and identified as within normal limits. Prognosis for therapy is Good due to: current objective clinical presentation, good overall health status, within-session changes, good support system/ coping skills. The patient will benefit from skilled therapy services to meet the goals established for this plan of care as noted below. Assessment Fall Risk : Active at risk Goals for Episode of Care: established 07/10/24 Patient will report no falls. Improve score on Timed Up and Go Test to 8.54 seconds to reflect decreased fall risk. Improve performance on 4 Stage Balance Test to symmetrical SLS to reflect decreased fall risk. Earle in home exercise program including cardiovascular exercise. Perform all functional mobility with decreased report of symptoms / pain. Increase strength of LEs(especially R hip abductors) to WFL in order to normalize gait. Patient Goals: improve balance and improve safety with functional mobility. Time Frame for Goals and Treatment : 08/21/24 Planned Interventions, Frequency, and Duration: Current Frequency: 2x/week Duration: 6 weeks Total Number of Visits Planned: 12 Planned Treatment Interventions: Therapeutic exercise (63870), Neuromuscular re-education (93932), Manual therapy (30403), Therapeutic activities (31492), Self-[place] [facility] [place] management (28221), Gait Training (12742), Patient/Family/Caregiver Education, Body Mechanics Training, General Conditioning, Functional training PLAN FOR NEXT VISIT: Review, correct and progress HEP to tolerance. Focus on gait training and B LE strengthening, especially R LE during stance phase of gait. Address hip abduction strength. Balance training prn, especially R SLS. Patient demonstrates good understanding of plan of care and treatment. The above goals and plan of care were discussed and agreed upon by patient/family. SUBJECTIVE: Pt reports balance and gait deficits that began approximately 3 years ago and are staying the same. She denies any falls. She reports being very active and wants to stay that way but reports gait abnormalities. Patient Goals: improve balance and improve safety with functional mobility. Functional Limitations: walking Prior Level of Function: Independent without limitations Relevant History Employment: Retired Home Environment Patient Lives With: Spouse Equipment Owned: Walker- Wheeled Intake Information: Prescription present Previous Treatment: None Falls Interview: No positive findings with falls interview Falls History # of falls in past year: 0 # of falls resulting in an injury in past year: 0 Pain: Pain Pain Level: 0 Post Treatment Pain Post Treatment Pain Level: No Change Post Treatment Symptoms: After session today, pt reported increased optimism about her PT plan and increased confidence with her rehab potential and prognosis. PROMIS Scales 07/10/2024 Higher is Better Self-Eff Symptom - T Score 66 (High) Self-Eff Symptom - Percentile 95 Mobility - T Score 46 (within normal limits) Mobility - Percentile 34 Proxy-reported T-scores: mean of general population = 50. 5 points is clinically meaningfully difference Percentiles provide an indication of how the patient's score ranks in relation to the general population. Higher percentile rankings indicate better function/quality of life. 50th percentile is the average of the general population and indicates half of respondents had a worse score. OBJECTIVE MEASURES WITH LEVEL OF FUNCTION: Gait Gait Observation: Pt has asymmetrical step lengths with short left step and reluctance to increase R stance time. She has Trendelenburg pattern with left side pelvis drop in R stance. Pattern is generally antalgic. Functional Performance Test Results Assistive Device: None 30 Second Chair Stand Test: 14 reps Timed Up and Go (sec): 9.17 sec 4 Stage Balance Test Narrow base of support (sec): 10 sec Semi-tandem base of support (sec): 10 sec Tandem base of support (sec): 10 sec Single leg stance - right (sec): 3 sec Single leg stance - left (sec): 22 sec Vitals BP: 137/80 Pulse: 65 Education: Education Learning Preferences: Demonstration, Explanation, Performance, Printed Materials Barriers: None Learning/educational needs: Home exercise program, Plan of Care, Posture, Body Mechanics Education Provided: Yes, see treatment interventions for education provided Education Provided To: Patient Education Mode/Type: Demonstration, Explanation/Discussion, Literature/Printed Materials, Performance Response to Education/Teach Back: States/Identifies, Return Demonstration, Requires Review/Additional Education TREATMENT: PT Treatment Interventions: Therapeutic Exercise, Gait Training Evaluation Therapeutic Exercise: 1: Pt was educated on the likely etiology of her chief complaint, the role of PT in helping her achieve her goals and the importance of stopping any exercise or activity that causes increased pain. She was advised that she should not attempt balance tests or exercises at home, just the seated therex provided on handout today. She was educated on how PT may assist with strength, balance, gait and therefore safer functional mobility overall. 2: *seated B DF/PF 2x20 3: *seated B alt hip flexion marching 2x10 4: *seated B alt knee extension 2x10 Skilled Intervention: Patient was educated in proper exercise technique and purpose for exercises. Reviewed and educated patient on additions/changes for home exercise program as above (*). Skilled judgment was used in selection of appropriate interventions. Provided written instruction for home exercise program to facilitate proper performance and compliance. Correct performance of therapeutic exercises was facilitated with verbal and visual cuing. Patient education as noted. Gait Trainin: Pt was educated on the deviations identified and how to address. She was encouraged to look ahead at her intended path and to take a bigger L step length. Symmetrical step lengths will be the goal. Pt practiced and therapist provided cueing and demonstration. Etiology of her deviations were explained. Trendelenburg gait pattern described and explained. Skilled Intervention: Facilitated proper gait cycle with the use of verbal and visual cues for correction of gait deviations identified in the objective section above. Gait belt utilized during session for safety. Billing * Evaluation Moderate Complexity: 1 Unit Therapeutic Exercise Treatment Minutes: 10 Gait Training Treatment Minutes: 15 Skilled Treatment Time Minutes (timed and untimed codes): 55 Total Session Time (minutes): 61 Session Start Time : 0900 Session Stop Time : 1001 Rocky Larose PT documented in this encounter [facility] 06-03-2024 Miscellaneous Notes Spoke with pt gave information provided. Pt voices understanding. Please inform patient that her mammogram is normal/negative. She will need routine screening mammogram in 1 year. Thanks Jagjit Matias DO' documented in this encounter [facility] 06-03-2024 Telephone encounter Note Spoke with pt gave information provided. Pt voices understanding. [facility] 06-03-2024 Telephone encounter Note Please inform patient that her mammogram is normal/negative. She will need routine screening mammogram in 1 year. Thanks CHERIE Zavala [facility] 05-30-2024 History of Present illness Narrative Radiology Service Progress Note PATIENT NAME: Letha Castro DATE OF SERVICE: May 30, 2024 TIME: 1:35 PM PATIENT IDENTITY VERIFICATION COMPLETED USING TWO (2) IDENTIFIERS: Name and Date of confirmed by patient verbally. FALL SCREENING: Has the patient had 2 falls in the last year or 1 fall with injury or currently using an Ambulatory Assistive Device (Walker, Cane, Wheelchair, Crutches, etc.)? No PATIENT GENDER DATA: Assigned female at . status: : No status: NO. PATIENT RELEVANT IMPLANT DATA REVIEWED: Not Applicable PATIENT PRESENTS WITH AN IMPLANTABLE OR ATTACHED CURING PICKLING PACKER: No RADIOLOGY DEPARTMENT: Mammography PERIPHERAL IV DATA: Not applicable SIGNED BY: Lion Sarah May 30, 2024 1:35 PM documented in this encounter [facility] 05-30-2024 Note HNO ID: [id number] Author: RAJANI GUERRERO Mammo Tech Service: ? Author Type: Camp Assistant Type: Progress Notes Filed: 05/30/2024 13:35 Note Text: Radiology Service Progress Note PATIENT NAME: Letha Castro DATE OF SERVICE: May 30, 2024 TIME: 1:35 PM PATIENT IDENTITY VERIFICATION COMPLETED USING TWO (2) IDENTIFIERS: Name and Date of confirmed by patient verbally. FALL SCREENING: Has the patient had 2 falls in the last year or 1 fall with injury or currently using an Ambulatory Assistive Device (Walker, Cane, Wheelchair, Crutches, etc.)? No PATIENT GENDER DATA: Assigned female at . status: : No status: NO. PATIENT RELEVANT IMPLANT DATA REVIEWED: Not Applicable PATIENT PRESENTS WITH AN IMPLANTABLE OR ATTACHED CURING PICKLING PACKER: No RADIOLOGY DEPARTMENT: Mammography PERIPHERAL IV DATA: Not applicable SIGNED BY: Lion Sarah May 30, 2024 1:35 PM [facility] 03-29-2024 Note HNO ID: [id number] Author: JAGJIT MATIAS, DO Service: ? Author Type: Physician Type: Progress Notes Filed: 03/29/2024 17:36 Note Text: CC: Letha Castro is a 83 year old female who presents to the office for follow up HPI: Patient is overall doing well. She had partial nephrectomy robotic laparoscopic procedure in June [address] Skylar Smith. Bowel movements are returning to normal. Appetite is normal. She has been able to walk for exercise. She has fatigue still. Feels her incisional areas healed up well without concerns. She had recent follow up CT renal and appt with Urologist- feels everything is going well without concerns. HTN, Blood pressure overall has been controlled Arthritis, stable. HPL, stable Hx of hyperglycemia, tries to keep diet well controlled Previously she had some fatigue but this is now improved, hx of vitamin D and iron deficiency, she is taking her supplement. Levels are much improved B/l hand pain, osteoarthritis, b/l foot aching and soreness. Worse with prolonged standing and walking- better with rest. Tries to avoid NSAIDs orally due to her renal surgery history PAST MEDICAL HISTORY Diagnosis Date Arthritis Essential tremor History of transfusion Hyperlipidemia Iron deficiency Overweight (BMI 25.0-29.9) PMH - PAST MEDICAL HISTORY OF arthritis PMH - PAST MEDICAL HISTORY OF varicose veins PMH - PAST MEDICAL HISTORY OF mitral regurg Renal cell carcinoma (HCC) 10/23/2022 PAST SURGICAL HISTORY Procedure Laterality Date APPENDECTOMY APPENDECTOMY HX ARTHRP ACETBLR/PROX FEM PROSTC AGRFT/ALGRFT 01/28/2014 left arthroplasty ARTHRP KNE CONDYLEANDPLATU MEDIALANDLAT COMPARTMENTS 02/12/2009 Knee replacement, total left ARTHRP KNE CONDYLEANDPLATU MEDIALANDLAT COMPARTMENTS 2010 Right knee COLONOSCOPY 06/24/2021 repeat in 10 years COLONOSCOPY FLX DX W/COLLJ SPEC WHEN PFRMD 2004 Colonoscopy COLONOSCOPY FLX DX W/COLLJ SPEC WHEN PFRMD 07/17/2014 Colonoscopy EGD W/O BRSH SPEC VARICIES INJ 06/24/2021 ESOPHAGOGASTRODUODENOSCOPY TRANSORAL DIAGNOSTIC 07/17/2014 EGD JOINT REPLACEMENT HX PAST SURGICAL HISTORY OF Bilateral 2005 VEIN STRIPPING PAST SURGICAL HISTORY OF 2000 heart cath PAST SURGICAL HISTORY OF 03/2020 colonoscopy and EGD SKIN BIOPSY HX VASCULAR SURGERY PROCEDURE Current Outpatient Medications Medication Sig pantoprazole DR (PROTONIX) 40 mg tablet Take 1 tablet by mouth once daily. predniSONE (DELTASONE) 50 mg Take 1 tablet by mouth at 13 hours, 7 hours, and [address] dye infusion. (Patient not taking: Reported on 10/26/2023) acetaminophen (TYLENOL) 325 mg tablet Take 2 tablets by mouth every 6 hours as needed for pain. calcium carbonate (CALTRATE) 600 mg calcium (1,500 mg) tab Take by mouth. ferrous sulfate (IRON, FERROUS SULFATE,) 325 mg (65 mg iron) tablet Take 1 tablet by mouth twice daily with meals. cholecalciferol, vitamin D3, (VITAMIN D3 ORAL) Take by mouth once daily. No current facility-administered medications for this visit. ALLERGIES Allergen Reactions Latex, Natural Rubb* Rash, Intolerance, Itching Cephalexin Chlorhexidine Rash Diclofenac Iodine Rash During heart cath contrast dye Levaquin [Levofloxa* Rash Penicillins Rash Social History Tobacco Use Smoking status: Never Smokeless tobacco: Never Vaping Use Vaping status: Never Used Substance Use Topics Alcohol use: No Drug use: No ROS: See HPI PE: BP 130/80 Pulse 64 Temp (Src) 98.5 (Temporal) Resp 20 Wt 153 lb (69.4kg) Gen: AANDOX3, NAD, non-toxic appearing HEENT: PERRLA, EOMs intact b/l, nares without drainage, pharynx without erythema, exudate, lesions, or drainage. Uvula midline. Neck: No LAD, no thyromegaly, no meningismus. CV: RRR, no murmur Lungs: CTA b/l, no wheezing Skin: No rashes, lesions, or wounds on exposed skin. No edema legs, normal pulses Significant varicose veins in legs b/l OA changes of DIP and PIP joints of the hands diffusely with inflammation OA changes of the toes and mid foot Gait antalgic and slowed Resting tremor ASSESSMENT/PLAN: 1. Impaired fasting glucose - ICD9: 790.21, ICD10: R73.01 (primary diagnosis) Diet controlled, stable 2. Encounter for screening mammogram for malignant neoplasm of breast - ICD9: V76.12, ICD10: Z12.31 - Set up for mammogram, yearly mammogram recommended - Encouraged monthly BSE - Increase calcium intake with supplements or by diet (goal of 4308-4109 mg/day - MATT SCREENING 3. Vitamin D deficiency - ICD9: 268.9, ICD10: E55.9 Stable, continue supplement 4. Dyslipidemia - ICD9: 272.4, ICD10: E78.5 - Controlled - Continue current medications - Counseled on healthy diet and regular exercise - Discussed need for and benefit of weight loss. BMI 27.98 kg/(m2) 5. Other iron deficiency anemia - ICD9: 280.8, ICD10: D50.8 Stable/improved, no concerns. 6. Gait disorder - ICD9: 781.2, ICD10: R26.9 Stab (more content not included)... [facility] [facility] 03-29-2024 History of Present illness Narrative CC: Letha Castro is a 83 year old female who presents to the office for follow up HPI: Patient is overall doing well. She had partial nephrectomy robotic laparoscopic procedure in June [address] Skylar Smith. Bowel movements are returning to normal. Appetite is normal. She has been able to walk for exercise. She has fatigue still. Feels her incisional areas healed up well without concerns. She had recent follow up CT renal and appt with Urologist- feels everything is going well without concerns. HTN, Blood pressure overall has been controlled Arthritis, stable. HPL, stable Hx of hyperglycemia, tries to keep diet well controlled Previously she had some fatigue but this is now improved, hx of vitamin D and iron deficiency, she is taking her supplement. Levels are much improved B/l hand pain, osteoarthritis, b/l foot aching and soreness. Worse with prolonged standing and walking- better with rest. Tries to avoid NSAIDs orally due to her renal surgery history PAST MEDICAL HISTORY Diagnosis Date Arthritis Essential tremor History of transfusion Hyperlipidemia Iron deficiency Overweight (BMI 25.0-29.9) PMH - PAST MEDICAL HISTORY OF arthritis PMH - PAST MEDICAL HISTORY OF varicose veins PMH - PAST MEDICAL HISTORY OF mitral regurg Renal cell carcinoma (HCC) 10/23/2022 PAST SURGICAL HISTORY Procedure Laterality Date APPENDECTOMY APPENDECTOMY HX ARTHRP ACETBLR/PROX FEM PROSTC AGRFT/ALGRFT 01/28/2014 left arthroplasty ARTHRP KNE CONDYLE&PLATU MEDIAL&LAT COMPARTMENTS 02/12/2009 Knee replacement, total left ARTHRP KNE CONDYLE&PLATU MEDIAL&LAT COMPARTMENTS 2010 Right knee COLONOSCOPY 06/24/2021 repeat in 10 years COLONOSCOPY FLX DX W/COLLJ SPEC WHEN PFRMD 2004 Colonoscopy COLONOSCOPY FLX DX W/COLLJ SPEC WHEN PFRMD 07/17/2014 Colonoscopy EGD W/O [facility] SPEC VARICIES INJ 06/24/2021 ESOPHAGOGASTRODUODENOSCOPY TRANSORAL DIAGNOSTIC 07/17/2014 EGD JOINT REPLACEMENT HX PAST SURGICAL HISTORY OF Bilateral 2004 VEIN STRIPPING PAST SURGICAL HISTORY OF 1999 heart cath PAST SURGICAL HISTORY OF 03/2020 colonoscopy and EGD SKIN BIOPSY HX VASCULAR SURGERY PROCEDURE Current Outpatient Medications Medication Sig pantoprazole DR (PROTONIX) 40 mg tablet Take 1 tablet by mouth once daily. predniSONE (DELTASONE) 50 mg Take 1 tablet by mouth at 13 hours, 7 hours, and [address] dye infusion. (Patient not taking: Reported on 10/26/2023) acetaminophen (TYLENOL) 325 mg tablet Take 2 tablets by mouth every 6 hours as needed for pain. calcium carbonate (CALTRATE) 600 mg calcium (1,500 mg) tab Take by mouth. ferrous sulfate (IRON, FERROUS SULFATE,) 325 mg (65 mg iron) tablet Take 1 tablet by mouth twice daily with meals. cholecalciferol, vitamin D3, (VITAMIN D3 ORAL) Take by mouth once daily. No current facility-administered medications for this visit. ALLERGIES Allergen Reactions Latex, Natural Rubb* Rash, Intolerance, Itching Cephalexin Chlorhexidine Rash Diclofenac Iodine Rash During heart cath contrast dye Levaquin [Levofloxa* Rash Penicillins Rash Social History Tobacco Use Smoking status: Never Smokeless tobacco: Never Vaping Use Vaping status: Never Used Substance Use Topics Alcohol use: No Drug use: No ROS: See HPI PE: BP 130/80 Pulse 64 Temp (Src) 98.5 (Temporal) Resp 20 Wt 153 lb (69.4kg) Gen: A&OX3, NAD, non-toxic appearing HEENT: PERRLA, EOMs intact b/l, nares without drainage, pharynx without erythema, exudate, lesions, or drainage. Uvula midline. Neck: No LAD, no thyromegaly, no meningismus. CV: RRR, no murmur Lungs: CTA b/l, no wheezing Skin: No rashes, lesions, or wounds on exposed skin. No edema legs, normal pulses Significant varicose veins in legs b/l OA changes of DIP and PIP joints of the hands diffusely with inflammation OA changes of the toes and mid foot Gait antalgic and slowed Resting tremor ASSESSMENT/PLAN: 1. Impaired fasting glucose - ICD9: 790.21, ICD10: R73.01 (primary diagnosis) Diet controlled, stable 2. Encounter for screening mammogram for malignant neoplasm of breast - ICD9: V76.12, ICD10: Z12.31 - Set up for mammogram, yearly mammogram recommended - Encouraged monthly BSE - Increase calcium intake with supplements or by diet (goal of 8566-5809 mg/day - [facility] SCREENING 3. Vitamin D deficiency - ICD9: 268.9, ICD10: E55.9 Stable, continue supplement 4. Dyslipidemia - ICD9: 272.4, ICD10: E78.5 - Controlled - Continue current medications - Counseled on healthy diet and regular exercise - Discussed need for and benefit of weight loss. BMI 27.98 kg/(m^2) 5. Other iron deficiency anemia - ICD9: 280.8, ICD10: D50.8 Stable/improved, no concerns. 6. Gait disorder - ICD9: 781.2, ICD10: R26.9 Stable, no recent falls 7. 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) - ICD9: 189.0, ICD10: C64.1 Stable, hx of in 2022, she is continuing monitoring. 8. Vitamin B 12 deficiency - ICD9: 266.2, ICD10: E53.8 Stable, continue supplement 9. Nonrheumatic mitral valve regurgitation - ICD9: 424.0, ICD10: I34.0 Stable, no new symptoms 10. Essential tremor - ICD9: 333.1, ICD10: G25.0 Stable, chronic Jagjit Matias DO Return if no improvement. Follow up with Jagjit Matias DO. To ER if develops chest pain, shortness of breath. Discussed risks, benefits, alternatives, and potential side effects of medications. Patient/Guardian expressed understanding and agreed with the plan. See patient instructions. Jagjit Matias DO [address] [place] [address] documented in this encounter [facility] 03-25-2024 Telephone encounter Note Pt. informed message left. [facility] 03-25-2024 Miscellaneous Notes Pt. informed message left. Lab signed. Please make sure pt is fasting. Thank you, Kelsey Mann APRN.[employer]OM[employer] BASKET[employer]ACH Patient calls to request lab orders be placed prior to appointment with PCP on 03/29/2024. Patient was to have completed in February but had to cancel her appointment so didn't get labs completed. Pended previous orders from February for review. Patient requests a call back at [phone] once orders are placed. Danya Jones RN documented in this encounter [facility] 03-25-2024 Telephone encounter Note Lab signed. Please make sure pt is fasting. Thank you, Kelsey Mann APRN.WOMEN'S BASKETBALL COACH [facility] Work Phone: 03-25-2024 Telephone encounter Note Patient calls to request lab orders be placed prior to appointment with PCP on 03/29/2024. Patient was to have completed in February but had to cancel her appointment so didn't get labs completed. Pended previous orders from February for review. Patient requests a call back at [phone] once orders are placed. Danya Jones RN [facility] 10-27-2023 Telephone encounter Note Pt informed Vandana Valverde MA [facility] 10-27-2023 Miscellaneous Notes Pt informed Vandana Valverde MA Please let Letha know I received her lab results. Her iron and hgb are in a good range, so no concerns there. It does show she has some dehydration-please reinforce that she get a minimum of 60-80oz of water daily. Her vitamin levels all look good. Rick Leong APRN.CNP documented in this encounter [facility] 10-27-2023 Telephone encounter Note Please let Letha know I received her lab results. Her iron and hgb are in a good range, so no concerns there. It does show she has some dehydration-please reinforce that she get a minimum of 60-80oz of water daily. Her vitamin levels all look good. Rick Leong APRN.CNP [facility] 10-26-2023 Instructions Rick Leong APRN.CNP - 10/26/2023 9:44 AM EDT You need to be getting a minimum of 64-80oz of water daily-double what you're currently getting. Be very careful with position changes, give yourself 30-60 seconds before getting up when laying to sitting. For PT, consider Rocky or Josue Have your labs drawn documented in this encounter [facility] 10-26-2023 Note HNO ID: [id number] Author: RICK LEONG APRN.MAYA Service: ? Author Type: Nurse Practitioner Type: Progress Notes Filed: 10/26/2023 11:17 Note Text: Chief Complaint Patient presents with: Dizziness: X 3 weeks, worse with position changes HPI Letha Castro is a 83 year old female who presents here today for Above Complaints.. Dizziness with position changes mostly-for about 3 weeks. Worse during the night when she gets up to urinate (about every 2 hours during the night) and in the mornings when she gets up. Is not room spinning. Lasts about 1-2 minutes. Zeshr-[id number] gets about 32oz on a daily basis. Does work outside in her garden a lot so has been doing a lot of sweating. Once she is up for a while in the mornings doesn't seem to bother her. Has not had any falls. Has hx low iron. Denies obvious rectal or other bleeding. Past medical history, appointments, medications, allergies reviewed. Previous Medical History PAST MEDICAL HISTORY No date: Arthritis No date: Essential tremor No date: History of transfusion No date: Hyperlipidemia No date: Iron deficiency No date: Overweight (BMI 25.0-29.9) No date: PMH - PAST MEDICAL HISTORY OF Comment: arthritis No date: PMH - PAST MEDICAL HISTORY OF Comment: varicose veins No date: PMH - PAST MEDICAL HISTORY OF Comment: mitral regurg 10/23/2022: Renal cell carcinoma (HCC) Previous Surgical History PAST SURGICAL HISTORY No date: APPENDECTOMY No date: APPENDECTOMY HX 01/28/2014: ARTHRP ACETBLR/PROX FEM PROSTC AGRFT/ALGRFT Comment: left arthroplasty 02/12/2009: ARTHRP KNE CONDYLEANDPLATU MEDIALANDLAT COMPARTMENTS Comment: Knee replacement, total left 2009: ARTHRP KNE CONDYLEANDPLATU MEDIALANDLAT COMPARTMENTS Comment: Right knee 06/24/2021: COLONOSCOPY Comment: repeat in 10 years 2005: COLONOSCOPY FLX DX W/COLLJ SPEC WHEN PFRMD Comment: Colonoscopy 07/17/2014: COLONOSCOPY FLX DX W/COLLJ SPEC WHEN PFRMD Comment: Colonoscopy 06/24/2021: EGD W/O [facility] SPEC VARICIES INJ 07/17/2014: ESOPHAGOGASTRODUODENOSCOPY TRANSORAL DIAGNOSTIC Comment: EGD No date: JOINT REPLACEMENT HX 2004: PAST SURGICAL HISTORY OF; Bilateral Comment: VEIN STRIPPING 1999: PAST SURGICAL HISTORY OF Comment: heart cath 03/2020: PAST SURGICAL HISTORY OF Comment: colonoscopy and EGD No date: SKIN BIOPSY HX No date: VASCULAR SURGERY PROCEDURE Family History FAMILY HISTORY Problem Relation Age of Onset Lipids Mother other (parkinsons) Mother Prostate Cancer Father other (Tremors) Father Lipids Sister Coronary Artery Disease Sister Cabg x3 other (Brain bleed) Sister Lipids Sister Breast Cancer Sister Lipids Brother Coronary Artery Disease Brother CABG other (tremors) Brother Anesthesia Problems No Family History Patient Allergies ALLERGIES Allergen Reactions Latex, Natural Rubb* Rash, Intolerance, Itching Cephalexin Chlorhexidine Rash Diclofenac Iodine Rash During heart cath contrast dye Levaquin [Levofloxa* Rash Penicillins Rash Current Medications Current Outpatient Medications on File Prior to Visit Medication Sig pantoprazole DR (PROTONIX) 40 mg tablet Take 1 tablet by mouth once daily. acetaminophen (TYLENOL) 325 mg tablet Take 2 tablets by mouth every 6 hours as needed for pain. calcium carbonate (CALTRATE) 600 mg calcium (1,500 mg) tab Take by mouth. ferrous sulfate (IRON, FERROUS SULFATE,) 325 mg (65 mg iron) tablet Take 1 tablet by mouth twice daily with meals. cholecalciferol, vitamin D3, (VITAMIN D3 ORAL) Take by mouth once daily. predniSONE (DELTASONE) 50 mg Take 1 tablet by mouth at 13 hours, 7 hours, and [address] dye infusion. (Patient not taking: Reported on 10/26/2023) No current facility-administered medications on file prior to visit. Social History Social History Tobacco Use Smoking status: Never Smokeless tobacco: Never Vaping Use Vaping Use: Never used Substance Use Topics Alcohol use: No Drug use: No Review of Symptoms REVIEW OF SYSTEMS See HPI, otherwise negative EXAM: BP 132/80 (BP Site: Left Arm, BP Position: Sitting, BP Cuff Size: Regular Adult) Pulse 74 Resp 16 Wt 67.3 kg (148 lb 6.4 oz) SpO2 97% BMI 27.14 kg/m? General Appearance: Well appearing, alert, in no acute distress, well-hydrated, well nourished.. Lungs: Lungs clear to auscultation. No wheezing, rhonchi, rales.. Heart: RRR without murmur, gallop, or rubs. No ectopy. Psychiatric: pleasant, cooperative. Health Maintenance List RSV Vaccine(1 - 1-dose 60+ series) Never done DTaP,Tdap,Td Vaccine(1 - Tdap) due on 05/19/2007 Pneumococcal Vaccine: 65+(2 of 2 - PCV) due on 05/05/2021 Covid-19 Vaccine( - 2022- season) Never done Advance Directive Discussion Never done Influenza Vaccine(1) due on 11/12/2023 Depression Screening due on 08/20/2024 Anxiety Screening due on 08/20/2024 Diabetes Screening due on 08/16/2026 Colorect (more content not included)... [facility] 10-26-2023 History of Present illness Narrative Chief Complaint Patient presents with: Dizziness: X 3 weeks, worse with position changes HPI Letha Castro is a 83 year old female who presents here today for Above Complaints.. Dizziness with position changes mostly-for about 3 weeks. Worse during the night when she gets up to urinate (about every 2 hours during the night) and in the mornings when she gets up. Is not room spinning. Lasts about 1-2 minutes. [id number] gets about 32oz on a daily basis. Does work outside in her garden a lot so has been doing a lot of sweating. Once she is up for a while in the mornings doesn't seem to bother her. Has not had any falls. Has hx low iron. Denies obvious rectal or other bleeding. Past medical history, appointments, medications, allergies reviewed. Previous Medical History PAST MEDICAL HISTORY No date: Arthritis No date: Essential tremor No date: History of transfusion No date: Hyperlipidemia No date: Iron deficiency No date: Overweight (BMI 25.0-29.9) No date: PMH - PAST MEDICAL HISTORY OF Comment: arthritis No date: PMH - PAST MEDICAL HISTORY OF Comment: varicose veins No date: PMH - PAST MEDICAL HISTORY OF Comment: mitral regurg 10/23/2022: Renal cell carcinoma (HCC) Previous Surgical History PAST SURGICAL HISTORY No date: APPENDECTOMY No date: APPENDECTOMY HX 01/28/2014: ARTHRP ACETBLR/PROX FEM PROSTC AGRFT/ALGRFT Comment: left arthroplasty 02/12/2009: ARTHRP KNE CONDYLE&PLATU MEDIAL&LAT COMPARTMENTS Comment: Knee replacement, total left 2009: ARTHRP KNE CONDYLE&PLATU MEDIAL&LAT COMPARTMENTS Comment: Right knee 06/24/2021: COLONOSCOPY Comment: repeat in 10 years 2004: COLONOSCOPY FLX DX W/COLLJ SPEC WHEN PFRMD Comment: Colonoscopy 07/17/2014: COLONOSCOPY FLX DX W/COLLJ SPEC WHEN PFRMD Comment: Colonoscopy 06/24/2021: [facility] 07/17/2014: ESOPHAGOGASTRODUODENOSCOPY TRANSORAL DIAGNOSTIC Comment: EGD No date: JOINT REPLACEMENT HX 2004: PAST SURGICAL HISTORY OF; Bilateral Comment: VEIN STRIPPING 1999: PAST SURGICAL HISTORY OF Comment: heart cath 03/2020: PAST SURGICAL HISTORY OF Comment: colonoscopy and EGD No date: SKIN BIOPSY HX No date: VASCULAR SURGERY PROCEDURE Family History FAMILY HISTORY Problem Relation Age of Onset Lipids Mother other (parkinsons) Mother Prostate Cancer Father other (Tremors) Father Lipids Sister Coronary Artery Disease Sister Cabg x3 other (Brain bleed) Sister Lipids Sister Breast Cancer Sister Lipids Brother Coronary Artery Disease Brother CABG other (tremors) Brother Anesthesia Problems No Family History Patient Allergies ALLERGIES Allergen Reactions Latex, Natural Rubb* Rash, Intolerance, Itching Cephalexin Chlorhexidine Rash Diclofenac Iodine Rash During heart cath contrast dye Levaquin [Levofloxa* Rash Penicillins Rash Current Medications Current Outpatient Medications on File Prior to Visit Medication Sig pantoprazole DR (PROTONIX) 40 mg tablet Take 1 tablet by mouth once daily. acetaminophen (TYLENOL) 325 mg tablet Take 2 tablets by mouth every 6 hours as needed for pain. calcium carbonate (CALTRATE) 600 mg calcium (1,500 mg) tab Take by mouth. ferrous sulfate (IRON, FERROUS SULFATE,) 325 mg (65 mg iron) tablet Take 1 tablet by mouth twice daily with meals. cholecalciferol, vitamin D3, (VITAMIN D3 ORAL) Take by mouth once daily. predniSONE (DELTASONE) 50 mg Take 1 tablet by mouth at 13 hours, 7 hours, and [address] dye infusion. (Patient not taking: Reported on 10/26/2023) No current facility-administered medications on file prior to visit. Social History Social History Tobacco Use Smoking status: Never Smokeless tobacco: Never Vaping Use Vaping Use: Never used Substance Use Topics Alcohol use: No Drug use: No Review of Symptoms REVIEW OF SYSTEMS See HPI, otherwise negative EXAM: BP 132/80 (BP Site: Left Arm, BP Position: Sitting, BP Cuff Size: Regular Adult) Pulse 74 Resp 16 Wt 67.3 kg (148 lb 6.4 oz) SpO2 97% BMI 27.14 kg/m General Appearance: Well appearing, alert, in no acute distress, well-hydrated, well nourished.. Lungs: Lungs clear to auscultation. No wheezing, rhonchi, rales.. Heart: RRR without murmur, gallop, or rubs. No ectopy. Psychiatric: pleasant, cooperative. Health Maintenance List RSV Vaccine(1 - 1-dose 60+ series) Never done DTaP,Tdap,Td Vaccine(1 - Tdap) due on 05/19/2007 Pneumococcal Vaccine: 65+(2 of 2 - PCV) due on 05/05/2021 Covid-19 Vaccine( - 2022- season) Never done Advance Directive Discussion Never done Influenza Vaccine(1) due on 11/12/2023 Depression Screening due on 08/20/2024 Anxiety Screening due on 08/20/2024 Diabetes Screening due on 08/16/2026 Colorectal Cancer Screening due on 06/25/2031 Bone Density Screening Completed Shingrix Vaccine Completed HPV Vaccine Aged Out Data reviewed Previous records, office notes ASSESSMENT/PLAN: 1. Orthostatic dizziness - ICD9: 780.4, ICD10: R42 (primary diagnosis) Change positions slowly, take time when going from laying to sitting to standing when getting out of bed. Suspect dehydration-only drinking 32 oz water daily-needs to drink minimum of 60-80oz daily. Suspect possible hypoglycemia given worse in the mornings after not having eaten all night. - COMPLETE BLOOD COUNT - COMPREHENSIVE METABOLIC PANEL - IRON AND TIBC - FERRITIN 2. Dehydration - ICD9: 276.51, ICD10: E86.0 Change positions slowly, take time when going from laying to sitting to standing when getting out of bed. Suspect dehydration-only drinking 32 oz water daily-needs to drink minimum of 60-80oz daily. Suspect possible hypoglycemia given worse in the mornings after not having eaten all night. - COMPLETE BLOOD COUNT - COMPREHENSIVE METABOLIC PANEL - IRON AND TIBC - FERRITIN Rick Leong APRN.WOMEN'S BASKETBALL COACH documented in this encounter [facility] 09-28-2023 Telephone encounter Note The patient has been identified by name and date of : Yes Caregiver verified no other encounters exist for this prescription request: Yes Caregiver confirmed with patient/requestor that no other refills are due, in the near future, with this provider at this time: Yes The last office visit in the department: 08/21/2023 Does the patient have a future office visit with this provider/department: 02/13/2024 Requested Prescriptions Pending Prescriptions Disp Refills pantoprazole DR (PROTONIX) 40 mg tablet 90 tablet 1 Sig: Take 1 tablet by mouth once daily. Danya Jones RN September 28, 2023 8:40 AM [facility] 09-28-2023 Miscellaneous Notes The patient has been identified by name and date of : Yes Caregiver verified no other encounters exist for this prescription request: Yes Caregiver confirmed with patient/requestor that no other refills are due, in the near future, with this provider at this time: Yes The last office visit in the department: 08/21/2023 Does the patient have a future office visit with this provider/department: 02/13/2024 Requested Prescriptions Pending Prescriptions Disp Refills pantoprazole DR (PROTONIX) 40 mg tablet 90 tablet 1 Sig: Take 1 tablet by mouth once daily. Danya Jones RN September 28, 2023 8:40 AM documented in this encounter [facility] 08-21-2023 History of Present illness Narrative CC: Letha Castro is a 82 year old female who presents to the office for follow up HPI: Patient is overall doing well. She had partial nephrectomy robotic laparoscopic procedure in June [address] Skylar Smith. Bowel movements are returning to normal. Appetite is normal. She has been able to walk for exercise. She has fatigue still. Feels her incisional areas healed up well without concerns. She had recent follow up CT renal and appt with Urologist- feels everything is going well without concerns. HTN, Blood pressure overall has been controlled Arthritis, stable. HPL, stable Hx of hyperglycemia, tries to keep diet well controlled Has some fatigue, hx of vitamin D and iron deficiency, she is taking her supplement Gluteus medius tears, interested in PHYSICAL THERAPY, knows needs to work on her gait and balance and strengthening. She is willing to start this. B/l hand pain, osteoarthritis, b/l foot aching and soreness. Worse with prolonged standing and walking- better with rest. Tries to avoid NSAIDs orally due to her renal surgery history Hemoglobin A1C Date Value Ref Range Status 08/17/2023 5.9 (H) 4.3 - 5.6 % Final Comment: [place] [employer] guidelines indicate that patients with HgbA1c in the range 5.7-6.4% are at increased risk for development of diabetes, and intervention by lifestyle modification may be beneficial. HgbA1c greater or equal to 6.5% is considered diagnostic of diabetes. 07/13/2021 5.5 4.3 - 5.6 % Final Comment: [place] [employer] guidelines indicate that patients with HgbA1c in the range 5.7-6.4% are at increased risk for development of diabetes, and intervention by lifestyle modification may be beneficial. HgbA1c greater or equal to 6.5% is considered diagnostic of diabetes. 01/09/2018 5.8 (H) 4.3 - 5.6 % Final Cholesterol, Total Date Value Ref Range Status 08/17/2023 196 <200 mg/dL Final Comment: <200 mg/dL, Desirable 200-239 mg/dL, Borderline high >239 mg/dL, High HDL Cholesterol Date Value Ref Range Status 08/17/2023 63 >39 mg/dL Final Comment: 40-59 mg/dL, Acceptable >59 mg/dL, High: Negative risk factor for coronary heart disease <40 mg/dL, Low: Positive risk factor for coronary heart disease LDL Cholesterol Date Value Ref Range Status 08/17/2023 122 (H) <100 mg/dL Final Comment: <100 mg/dL, Optimal 100-129 mg/dL, Near optimal/above optimal 130-159 mg/dL, Borderline high 160-189 mg/dL, High >189 mg/dL, Very high Secondary prevention optimal LDL Cholesterol levels are recommended to be < 70 mg/dL Triglyceride Date Value Ref Range Status 08/17/2023 57 <150 mg/dL Final Comment: <150 mg/dL, Normal 150-199 mg/dL, Borderline high 200-499 mg/dL, High >499 mg/dL, Very high PAST MEDICAL HISTORY Diagnosis Date Arthritis Essential tremor History of transfusion Hyperlipidemia Iron deficiency Overweight (BMI 25.0-29.9) PMH - PAST MEDICAL HISTORY OF arthritis PMH - PAST MEDICAL HISTORY OF varicose veins PMH - PAST MEDICAL HISTORY OF mitral regurg Renal cell carcinoma (HCC) 10/23/2022 PAST SURGICAL HISTORY Procedure Laterality Date APPENDECTOMY APPENDECTOMY HX ARTHRP ACETBLR/PROX FEM PROSTC AGRFT/ALGRFT 01/28/2014 left arthroplasty ARTHRP KNE CONDYLE&PLATU MEDIAL&LAT COMPARTMENTS 02/12/2009 Knee replacement, total left ARTHRP KNE CONDYLE&PLATU MEDIAL&LAT COMPARTMENTS 2009 Right knee COLONOSCOPY 06/24/2021 repeat in 10 years COLONOSCOPY FLX DX W/COLLJ SPEC WHEN PFRMD 2005 Colonoscopy COLONOSCOPY FLX DX W/COLLJ SPEC WHEN PFRMD 07/17/2014 Colonoscopy EGD W/O [facility] SPEC VARICIES INJ 06/24/2021 ESOPHAGOGASTRODUODENOSCOPY TRANSORAL DIAGNOSTIC 07/17/2014 EGD JOINT REPLACEMENT HX PAST SURGICAL HISTORY OF Bilateral 2005 VEIN STRIPPING PAST SURGICAL HISTORY OF 2000 heart cath PAST SURGICAL HISTORY OF 03/2020 colonoscopy and EGD SKIN BIOPSY HX VASCULAR SURGERY PROCEDURE Current Outpatient Medications Medication Sig predniSONE (DELTASONE) 50 mg Take 1 tablet by mouth at 13 hours, 7 hours, and [address] dye infusion. pantoprazole DR (PROTONIX) 40 mg tablet Take 1 tablet by mouth once daily. acetaminophen (TYLENOL) 325 mg tablet Take 2 tablets by mouth every 6 hours as needed for pain. calcium carbonate (CALTRATE) 600 mg calcium (1,500 mg) tab Take by mouth. ferrous sulfate (IRON, FERROUS SULFATE,) 325 mg (65 mg iron) tablet Take 1 tablet by mouth twice daily with meals. cholecalciferol, vitamin D3, (VITAMIN D3 ORAL) Take by mouth once daily. No current facility-administered medications for this visit. ALLERGIES Allergen Reactions Latex, Natural Rubb* Rash, Intolerance, Itching Cephalexin Chlorhexidine Rash Diclofenac Iodine Rash During heart cath contrast dye Levaquin [Levofloxa* Rash Penicillins Rash Social History Tobacco Use Smoking status: Never Smokeless tobacco: Never Vaping Use Vaping Use: Never used Substance Use Topics Alcohol use: No Drug use: No ROS: See HPI PE: BP 120/80 Pulse 64 Temp (Src) 97 (Left Tympanic) Resp 16 Wt 149 lb (67.6kg) Gen: A&OX3, NAD, non-toxic appearing HEENT: PERRLA, EOMs intact b/l, nares without drainage, pharynx without erythema, exudate, lesions, or drainage. Uvula midline. Neck: No LAD, no thyromegaly, no meningismus. CV: RRR, no murmur Lungs: CTA b/l, no wheezing Skin: No rashes, lesions, or wounds on exposed skin. No edema legs, normal pulses Significant varicose veins in legs b/l OA changes of DIP and PIP joints of the hands diffusely with inflammation OA changes of the toes and mid foot Gait antalgic and slowed ASSESSMENT/PLAN: 1. Tear of gluteus medius tendon, unspecified laterality, subsequent encounter - ICD9: V58.89, 843.8, ICD10: S76.019D (primary diagnosis) Referral for PT - CONSULT TO PHYSICAL THERAPY 2. Gait disorder - ICD9: 781.2, ICD10: R26.9 Referral for PT - CONSULT TO PHYSICAL THERAPY 3. Fatigue, unspecified type - ICD9: 780.79, ICD10: R53.83 stable 4. Vitamin D deficiency - ICD9: 268.9, ICD10: E55.9 Stable, continue supplement - VITAMIN D 25 HYDROXY 5. Dyslipidemia - ICD9: 272.4, ICD10: E78.5 - Uncontrolled - Worsening control - Continue current medications - Counseled on healthy diet and regular exercise - Discussed need for and benefit of weight loss. BMI 27.25 kg/(m^2) - COMPREHENSIVE METABOLIC PANEL 6. 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) - ICD9: 189.0, ICD10: C64.1 Hx of, doing well, CT is normal now 7. Other iron deficiency anemia - ICD9: 280.8, ICD10: D50.8 Recheck labs in 3 months - COMPLETE BLOOD COUNT - IRON AND TIBC 8. Vitamin B12 deficiency - ICD9: 266.2, ICD10: E53.8 Continue supplement - VITAMIN B12 9. IFG (impaired fasting glucose) - ICD9: 790.21, ICD10: R73.01 Needs to improve her diet as d/w her today - HEMOGLOBIN A1C Jagjit Matias DO Return if no improvement. Follow up with Jagjit Matias DO. To ER if develops chest pain, shortness of breath. Discussed risks, benefits, alternatives, and potential side effects of medications. Patient/Guardian expressed understanding and agreed with the plan. See patient instructions. Jagjit Matias DO [address] [place] [address] documented in this encounter [facility] 08-21-2023 Instructions Jagjit Matias DO - 08/21/2023 10:33 AM EDT Physical therapy Mckenzie Bearden or Rocky Larose Parafin wax dip system Epsom salt soaks documented in this encounter [facility] 08-04-2023 Telephone encounter Note New labs are placed. Thank you, Kelsey Mann APRN.MAAY [facility] Work Phone: 08-04-2023 Miscellaneous Notes New labs are placed. Thank you, Kelsey Mann APRN.WOMEN'S BASKETBALL COACH Pt calling in as she has an appt with Dr. Matias on 08/21/23. She states she noticed on [email or web address] that the lab orders that are currently in are going to tomorrow and she is unable to come in. Pt told we can put a new set of orders in for her. Pt will watch her MyChart for the new orders. documented in this encounter [facility] 08-03-2023 Telephone encounter Note Pt calling in as she has an appt with Dr. Matias on 08/21/23. She states she noticed on MyChart that the lab orders that are currently in are going to tomorrow and she is unable to come in. Pt told we can put a new set of orders in for her. Pt will watch her MyChart for the new orders. [facility] 07-27-2023 History of Present illness Narrative PATIENT: Letha Castro [id number] 07/21/2022 Clinic note from 07/21/2022 copied and updated. Chief Complaint: Follow up [facility] History of Present Illness: Letha Castro is a very pleasant 82 year old female who presents with a history of right renal mass found on US due to right sided abdominal pain. CT Kidney revealed 3.3cm right renal mass s/p partial nephrectomy 07/06/22 and pathology revealed [id number] clear cell renal carcinoma . FINAL DIAGNOSIS A. 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 - Tumor confined to the kidney (pT1a). - Surgical margins are negative for tumor. Last OV 07/21/22. Plan to f/u in [address] abdomen, CXR, and BMP. CT KIDNEY WO/W IVCON 07/12/2023 IMPRESSION: Postoperative changes from a partial right nephrectomy. No new mass or lymphadenopathy. XR CHEST 2V FRONTAL/LAT 07/12/2023 IMPRESSION: No acute radiographic abnormality. No suspicious nodule or mass. Interval Hx: Overall, doing well. No urologic concerns. No gross hematuria or flank pain. Physical Exam: General Appearance Adult: Alert, no acute distress, oriented Lungs/Repiratory: no respiratory distress, or pursed lip breathing Neuro: Alert, oriented, speech and mentation normal Psych: affect and mood normal Labs and Pathology: Surgical pathology 07/06/2022 FINAL DIAGNOSIS A. 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 - Tumor confined to the kidney (pT1a). - Surgical margins are negative for tumor. Creatinine (mg/dL) Date Value 07/12/2023 0.69 04/17/2023 0.72 09/27/2022 0.91 09/22/2022 1.02 07/07/2022 0.84 07/06/2022 0.80 06/29/2022 0.80 05/03/2022 0.81 02/21/2022 0.85 07/13/2021 0.81 01/29/2021 0.72 02/05/2020 0.96 11/01/2019 0.84 06/20/2018 0.65 06/04/2018 0.71 01/09/2018 0.69 01/11/2017 0.79 11/12/2016 0.79 05/02/2014 0.85 02/12/2013 0.68 Imaging: CT Kidney 05/17/22 IMPRESSION: 3.2 x 3.3 x 2.9 cm right renal mass, most likely renal cell carcinoma. Right kidney focal cortical scarring overlying a 1 cm stone in the lateral inferior pole. Bilateral subcentimeter renal cysts. Cholelithiasis. Hiatal hernia. Assessment: (Z08, Z85.528) Encounter for follow-up surveillance of kidney cancer (primary encounter diagnosis) (Z85.528) History of renal cell cancer (Z90.5) H/O partial nephrectomy [id number] Histologic subtype clear cell ISUP Grade 2 kidney cancer s/p Robotic Partial nephrectomy on 07/06/2022 Reviewed most recent imaging results without evidence of recurrence or metastatic disease. Discussed NCCN guidelines for surveillance. Plan: -Follow up virtual visit in 1 year with MRI abdomen, CXR, and BMP checked prior to visit Discussed with Dr. Smith. Edith Danielle APRN.WOMEN'S BASKETBALL COACH documented in this encounter [facility] 07-15-2023 Telephone encounter Note Pt called and is notified of providers results. Pt voices understanding. Lisa Sanchez RN [facility] 07-15-2023 Miscellaneous Notes Pt called and is notified of providers results. Pt voices understanding. Lisa Sanchez RN Please inform patient that her labs are back to normal and her chest xray is normal appearing Jagjit Matias DO documented in this encounter [facility] 07-14-2023 Telephone encounter Note Please inform patient that her labs are back to normal and her chest xray is normal appearing Jagjit Matias DO [facility] 07-12-2023 History of Present illness Narrative Radiology Service Progress Note PATIENT NAME: Letha Castro DATE OF SERVICE: July 12, 2023 TIME: 10:28 AM PATIENT IDENTITY VERIFICATION COMPLETED USING TWO (2) IDENTIFIERS: Name and Date of confirmed by patient verbally. FALL SCREENING: Has the patient had 2 falls in the last year or 1 fall with injury or currently using an Ambulatory Assistive Device (Walker, Cane, Wheelchair, Crutches, etc.)? No PATIENT GENDER DATA: Female. status: : No status: NO. PATIENT RELEVANT IMPLANT DATA REVIEWED: Not Applicable PATIENT PRESENTS WITH AN IMPLANTABLE OR ATTACHED CURING PICKLING PACKER: No RADIOLOGY DEPARTMENT: General X-ray: Exam(s) Completed: Chest X-Ray PERIPHERAL IV DATA: Not applicable SIGNED BY: RT Adry(R) July 12, 2023 10:28 AM documented in this encounter [facility] 07-12-2023 Telephone encounter Note Order signed. Thank you, Kelsey Mann APRN.WOMEN'S BASKETBALL COACH [facility] 07-12-2023 Miscellaneous Notes Order signed. Thank you, Kelsey Mann APRN.WOMEN'S BASKETBALL COACH Please file Stat order for lab. documented in this encounter [facility] 07-12-2023 Telephone encounter Note Please file Stat order for lab. [facility] 07-12-2023 History of Present illness Narrative Radiology Service Progress Note DATE OF SERVICE: July 12, 2023 TIME: 3:38 PM PATIENT IDENTITY VERIFICATION COMPLETED USING TWO (2) STANDARD IDENTIFIERS: Name and Date of confirmed by patient verbally. FALL SCREENING: Has the patient had 2 falls in the last year or 1 fall with injury or currently using an Ambulatory Assistive Device (Walker, Cane, Wheelchair, Crutches, etc.)? No PATIENT GENDER DATA: Female. status: : No status: NO. PATIENT RELEVANT IMPLANT DATA REVIEWED: Yes PATIENT PRESENTS WITH AN IMPLANTABLE OR ATTACHED CURING PICKLING PACKER: No ALLERGIES: Reviewed and unchanged CONTRAST ALLERGY: NO. EXAM: CT -CONTRAST INDUCED NEPHROPATHY RISK FACTORS: Patient age > 60 years CREATININE: Creatinine Date Value Ref Range Status 07/12/2023 0.69 0.58 - 0.96 mg/dL Final 04/17/2023 0.72 0.58 - 0.96 mg/dL Final 09/27/2022 0.91 0.58 - 0.96 mg/dL Final Estimated Glomerular Filtration Rate Date Value Ref Range Status 07/12/2023 88 >=60 mL/min/1.73m Final Comment: Estimated Glomerular Filtration Rate (eGFR) is calculated using the 2020 CKD-EPI creatinine equation. This equation utilizes serum creatinine, sex, and age as parameters. The creatinine assay has traceable calibration to isotope dilution-mass spectrometry. Refer to KDIGO guidelines for clinical interpretation. In patients with unstable renal function, e.g. those with acute kidney injury, the eGFR may not accurately reflect actual GFR. eGFR- Date Value Ref Range Status 01/29/2021 >60 Final Comment: Note: On 05/08/2021, the eGFR calculation will be updated to the NKF-ASN Task Force recommended 2020 CKD-EPI creatinine equation which does not include a race variable. For more information or to access a 2020 CKD-EPI calculator, visit the National Kidney Foundation website at kidney.org/professionals/kdoqi/gfr_cal culator. P.O.C.T. RESULTS: POC done: Yes, See Lab Tab July 12, 2023 TREATMENT: N/A PERIPHERAL IV DATA: Ambulatory: A peripheral IV was started in the Left antecubital site with a Angio cath: 18 gauge. RADIOLOGY DEPARTMENT: CT; Exam(s) Completed: Kidney SIGNATURE: RT Pa(Amy) PATIENT NAME: Letha Castro DATE: July 12, 2023 TIME: 3:38 PM documented in this encounter [facility] 05-30-2023 Miscellaneous Notes Pt notified. Kylah Rashid MA Ordered Chely Castro PA-C Patient needs lab test ordered to check creatinine before getting kidney MRI on July 11 since the last test falls out of the 60 day mei. documented in this encounter [facility] 05-30-2023 Miscellaneous Notes Patient has been identified by name and date of : Yes Last office visit in this department: 05/05/2023 RX INSTRUCTIONS: Patient aware RX will be sent to pharmacy. No need to notify patient. Patient phones requesting refills as follows: Requested Prescriptions Pending Prescriptions Disp Refills predniSONE (DELTASONE) 50 mg 3 tablet 0 Sig: Take 1 tablet by mouth at 13 hours, 7 hours, and [address] dye infusion. Please review and advise. Braxton Huerta documented in this encounter [facility] 05-13-2023 History of Present illness Narrative CC: Letha Castro is a 82 year old female who presents to the office for follow up HPI: Patient is overall doing well. She had partial nephrectomy robotic laparoscopic procedure in June [address] Skylar Smith. Bowel movements are returning to normal. Appetite is normal. She has been able to walk for exercise. She has fatigue still. Feels her incisional areas healed up well without concerns. She is supposed to have follow up and CT scan this spring/summer Blood pressure overall has been controlled Arthritis, stable. HPL, stable Has some fatigue, hx of vitamin D and iron deficiency, she is taking her supplement PAST MEDICAL HISTORY Diagnosis Date Arthritis Essential tremor History of transfusion Hyperlipidemia Iron deficiency Overweight (BMI 25.0-29.9) PMH - PAST MEDICAL HISTORY OF arthritis PMH - PAST MEDICAL HISTORY OF varicose veins PMH - PAST MEDICAL HISTORY OF mitral regurg Renal cell carcinoma (HCC) 10/23/2022 PAST SURGICAL HISTORY Procedure Laterality Date APPENDECTOMY APPENDECTOMY HX ARTHRP ACETBLR/PROX FEM PROSTC AGRFT/ALGRFT 01/28/2014 left arthroplasty ARTHRP KNE CONDYLE&PLATU MEDIAL&LAT COMPARTMENTS 02/12/2009 Knee replacement, total left ARTHRP KNE CONDYLE&PLATU MEDIAL&LAT COMPARTMENTS 2009 Right knee COLONOSCOPY 06/24/2021 repeat in 10 years COLONOSCOPY FLX DX W/COLLJ SPEC WHEN PFRMD 2004 Colonoscopy COLONOSCOPY FLX DX W/COLLJ SPEC WHEN PFRMD 07/17/2014 Colonoscopy EGD W/O [facility] SPEC VARICIES INJ 06/24/2021 ESOPHAGOGASTRODUODENOSCOPY TRANSORAL DIAGNOSTIC 07/17/2014 EGD JOINT REPLACEMENT HX PAST SURGICAL HISTORY OF Bilateral 2005 VEIN STRIPPING PAST SURGICAL HISTORY OF 1999 heart cath PAST SURGICAL HISTORY OF 03/2020 colonoscopy and EGD SKIN BIOPSY HX VASCULAR SURGERY PROCEDURE Current Outpatient Medications Medication Sig pantoprazole DR (PROTONIX) 40 mg tablet Take 1 tablet by mouth once daily. predniSONE (DELTASONE) 50 mg Take 1 tablet by mouth at 13 hours, 7 hours, and [address] dye infusion. acetaminophen (TYLENOL) 325 mg tablet Take 2 tablets by mouth every 6 hours as needed for pain. calcium carbonate (CALTRATE) 600 mg calcium (1,500 mg) tab Take by mouth. ferrous sulfate (IRON, FERROUS SULFATE,) 325 mg (65 mg iron) tablet Take 1 tablet by mouth twice daily with meals. cholecalciferol, vitamin D3, (VITAMIN D3 ORAL) Take by mouth once daily. No current facility-administered medications for this visit. ALLERGIES Allergen Reactions Latex, Natural Rubb* Rash, Intolerance, Itching Cephalexin Chlorhexidine Rash Diclofenac Iodine Rash During heart cath contrast dye Levaquin [Levofloxa* Rash Penicillins Rash Social History Tobacco Use Smoking status: Never Smokeless tobacco: Never Vaping Use Vaping Use: Never used Substance Use Topics Alcohol use: No Drug use: No ROS: See HPI PE: BP 124/70 Pulse 80 Temp (Src) 98.1 (Left Tympanic) Resp 20 Wt 150 lb (68.0kg) Gen: A&OX3, NAD, non-toxic appearing HEENT: PERRLA, EOMs intact b/l, nares without drainage, pharynx without erythema, exudate, lesions, or drainage. Uvula midline. Neck: No LAD, no thyromegaly, no meningismus. CV: RRR, no murmur Lungs: CTA b/l, no wheezing Skin: No rashes, lesions, or wounds on exposed skin. Abd: soft, NT, ND, normal BS, no masses No edema, normal pulses ASSESSMENT/PLAN: 1. Hyperglycemia - ICD9: 790.29, ICD10: R73.9 (primary diagnosis) Recheck labs as ordered - HGB A1C 2. Dyslipidemia - ICD9: 272.4, ICD10: E78.5 - Control undetermined, due for labs - Counseled on healthy diet and regular exercise - Discussed need for and benefit of weight loss. BMI 27.44 kg/(m^2) - LIPID PANEL BASIC 3. Vitamin D deficiency - ICD9: 268.9, ICD10: E55.9 Recheck labs, continue supplement - VITAMIN D 25 HYDROXY 4. Fatigue, unspecified type - ICD9: 780.79, ICD10: R53.83 Recheck labs as ordered. - VITAMIN B12 BLOOD 5. Iron deficiency anemia, unspecified iron deficiency anemia type - ICD9: 280.9, ICD10: D50.9 Continue iron supplement, recheck labs 6. Renal mass, right - ICD9: 593.9, ICD10: N28.89 Need for follow up with surgeon and repeat CT renal - CT KIDNEY WO/W IVCON - IV CONTRAST (RADIOLOGY PROCEDURE) - XR CHEST 2V FRONTAL/LAT 7. Tremors of nervous system - ICD9: 781.0, ICD10: R25.1 stable 8. 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 Follow up with Jagjit Matias DO. To ER if develops chest pain, shortness of breath. Discussed risks, benefits, alternatives, and potential side effects of medications. Patient/Guardian expressed understanding and agreed with the plan. See patient instructions. Jagjit Matias DO [address] [place] [address] documented in this encounter [facility] 04-27-2023 Miscellaneous Notes Pt reports she pulled a muscle in right buttock a week ago, and it still hurts. Mostly mild. Can get to moderate /severe if sits too long. Has not taken any medication, unsure if she can take NSAIDs due to history of blood transfusion 1 1/2 years ago- a bleed was never found- but did show inflammation on colonoscopy / EGD and currently takes protonix. Uses heat on buttock and unsure if it really helps. Agreeable to try cold pack 20 min on / 20 min off, and tylenol. If no improvement on Monday, will call back to schedule appt. 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 Reason for Disposition [1] MILD pain (e.g., does not interfere with normal activities) AND [2] present < 7 days Answer Assessment - Initial Assessment Questions 1. ONSET: Right buttock - pulled muscle a week ago- still hurting 2. LOCATION: Right buttock. Does not radiate. 3. SEVERITY: If sits long it's moderate to severe. Mild if not walking and not cnstant. Feels better when starts walking after sitting a while. 4. CAUSE: Pulled a gluteal muscle doing work in the barn. 5. FEVER: No fever 6. OTHER SYMPTOMS: No other symptoms just pain in right buttock. Has not taken any medications for this. Is afraid to take NSAIDs because has hx of blood transfusion 1 1/2 yr ago, and they never found a bleed- had colonoscopy and EGD and no bleed was found but did have inflammation and takes protonix daily for this. 7. : No 8. TRAVEL: No Protocols used: Muscle Aches and Body [id number] documented in this encounter [facility] 04-21-2023 Miscellaneous Notes Pt called back and message given. Pt will call back to reschedule. Denise Queen LPN documented in this encounter [facility] 02-14-2023 Miscellaneous Notes February 14, 2023 PID: [id number] Letha Castro [address] [place] [address] Dear Ms. Palm, We are pleased to inform you that the results of your recent breast imaging exam on 02/13/2023 are normal. Early detection of cancer is very important. We also understand recommendations regarding breast cancer screening are controversial. Please discuss with your primary care provider which strategy is best for you and whether a mammogram is right for you. Your imaging studies and report will be kept on file at [facility] as part of your permanent medical record and are available for your continuing care. Thank you for allowing us to help in meeting your health care needs. Sincerely, Dr. Nolan Interpreting Radiologist [facility] (Normal over 40) documented in this encounter [facility] 11-05-2022 Miscellaneous Notes Phoned patient and went over results, notes from Dr Matias with understanding. Please inform patient that her CT of the kidney is overall stable, no mass or tumor concerns See below IMPRESSION: 1. Postoperative changes from a partial right nephrectomy. No new mass. No hydronephrosis. 2. No acute pathology 3. Moderate hiatal hernia 4. Stable fluid density structure in the left retroperitoneum 5. Previously described fluid density structure along the superior aspect of the pancreas is not as well-visualized on the current study Jagjit Matias DO documented in this encounter [facility] 11-04-2022 History of Present illness Narrative Radiology Service Progress Note DATE OF SERVICE: November 04, 2022 TIME: 4:11 PM PATIENT IDENTITY VERIFICATION COMPLETED USING TWO (2) STANDARD IDENTIFIERS: Name and Date of confirmed by patient verbally. FALL SCREENING: Has the patient had 2 falls in the last year or 1 fall with injury or currently using an Ambulatory Assistive Device (Walker, Cane, Wheelchair, Crutches, etc.)? No PATIENT GENDER DATA: Female. status: : No status: NO. PATIENT RELEVANT IMPLANT DATA REVIEWED: Yes ALLERGIES: Reviewed and unchanged CONTRAST ALLERGY: NO. EXAM: CT -CONTRAST INDUCED NEPHROPATHY RISK FACTORS: Patient age > 60 years CREATININE: Creatinine Date Value Ref Range Status 09/27/2022 0.91 0.58 - 0.96 mg/dL Final 09/22/2022 1.02 (H) 0.58 - 0.96 mg/dL Final 07/07/2022 0.84 0.58 - 0.96 mg/dL Final Estimated Glomerular Filtration Rate Date Value Ref Range Status 09/27/2022 64 >=60 mL/min/1.73m Final Comment: Estimated Glomerular Filtration Rate (eGFR) is calculated using the 2020 CKD-EPI creatinine equation. This equation utilizes serum creatinine, sex, and age as parameters. The creatinine assay has traceable calibration to isotope dilution-mass spectrometry. Refer to KDIGO guidelines for clinical interpretation. In patients with unstable renal function, e.g. those with acute kidney injury, the eGFR may not accurately reflect actual GFR. eGFR- Date Value Ref Range Status 01/29/2021 >60 Final Comment: Note: On 05/08/2021, the eGFR calculation will be updated to the NKF-ASN Task Force recommended 2020 CKD-EPI creatinine equation which does not include a race variable. For more information or to access a 2020 CKD-EPI calculator, visit the National Kidney Foundation website at kidney.org/professionals/kdoqi/gfr_cal culator. P.O.C.T. RESULTS: POC done: Yes, See Lab Tab November 04, 2022 TREATMENT: N/A PERIPHERAL IV DATA: Ambulatory: A peripheral IV was started in the Left antecubital site with a Angio cath: 18 gauge. RADIOLOGY DEPARTMENT: CT; Exam(s) Completed: Kidney SIGNATURE: RT Pa(R) PATIENT NAME: Letha Castro DATE: November 04, 2022 TIME: 4:11 PM documented in this encounter [facility] 11-02-2022 Miscellaneous Notes Patient was notified Lynda Díaz Ma I didn't get this rx sent in until tonight since I have been seeing patient. rx sent in, please inform patient Jagjit Matias DO Patient reports she has a CT scheduled for tomorrow at 1 pm on MR. Reports she needs Rx for prednisone and benadryl sent to [facility]. Pended. Reports she is allergic to iodine, and in the past has had to take prednisone 13 hrs prior, 7 hrs prior, 1 hr prior, and benadryl 1 hr prior, to have CT done. documented in this encounter [facility] 11-02-2022 Miscellaneous Notes Patient was notified and will call to schedule Lynda Díaz Ma I really feel she needs to have the CT redone due to concerns that there is a lesion near the kidney of previous surgery for her renal cell carcinoma Jagjit Matias DO Pt states she received a call from QUYEN Leong yesterday saying pcp wants pt to get a CT. Pt was scheduled for a CT 10/24/22 that was canceled. Pt is asking if rad that canceled it looked at the images or just the report. She is asking bc of recently having surgery to remove renal cell CA. She wants to know if pcp still wants her to have the CT? Please call pt. Hyacinth Velazquez LPN documented in this encounter [facility] 10-27-2022 Miscellaneous Notes Noted. Thank you for the update. Kelsey Mann APRN.MAYA Pt called back and she went to have a CT done at 1 pm and received a call from Dr. Cleaning, Urology [facility] and he instructed pt that the finding was a cyst on the kidney and she did not need to have the CT done.. Pt did not have the CT done. If there is something else Dr. Matias feels needs to be done let her know. Denise Queen LPN Incidental find on MRI for a Right Kidney Lesion. needs to see Kidney specialist. Message left to return call to see if she has seen Kidney MD yet? documented in this encounter [facility] 10-21-2022 Instructions Rick Leong APRN.CNP - 10/21/2022 9:55 AM EDT Have your lab work drawn. Schedule your CT scan. Schedule your hida scan. documented in this encounter [facility] 10-21-2022 History of Present illness Narrative Chief Complaint Patient presents with: Follow Up: MRI abd, nausea and abd discomfort x 2.5 months HPI Letha Castro is a 82 year old female who presents here today for Above Complaints.. Today: Would like to discuss recent MRI of abdomen. Continues with nausea and moderate abdominal discomfort, cramping, aching to RUQ and RLQ, LLQ. Denies diarrhea or constipation. Eating small meals, avoiding acidic and greasy foods. Does have hx renal cell carcinoma. Past medical history, appointments, medications, allergies reviewed. Previous Medical History PAST MEDICAL HISTORY Diagnosis Date Arthritis Essential tremor History of transfusion Hyperlipidemia Iron deficiency Overweight (BMI 25.0-29.9) PMH - PAST MEDICAL HISTORY OF arthritis PMH - PAST MEDICAL HISTORY OF varicose veins PMH - PAST MEDICAL HISTORY OF mitral regurg Previous Surgical History PAST SURGICAL HISTORY Procedure Laterality Date APPENDECTOMY APPENDECTOMY HX ARTHRP ACETBLR/PROX FEM PROSTC AGRFT/ALGRFT 01/28/2014 left arthroplasty ARTHRP KNE CONDYLE&PLATU MEDIAL&LAT COMPARTMENTS 02/12/2009 Knee replacement, total left ARTHRP KNE CONDYLE&PLATU MEDIAL&LAT COMPARTMENTS 2010 Right knee COLONOSCOPY 06/24/2021 repeat in 10 years COLONOSCOPY FLX DX W/COLLJ SPEC WHEN PFRMD 2005 Colonoscopy COLONOSCOPY FLX DX W/COLLJ SPEC WHEN PFRMD 07/17/2014 [facility] 06/24/2021 ESOPHAGOGASTRODUODENOSCOPY TRANSORAL DIAGNOSTIC 07/17/2014 EGD JOINT REPLACEMENT HX PAST SURGICAL HISTORY OF Bilateral 2005 VEIN STRIPPING PAST SURGICAL HISTORY OF 1999 heart cath PAST SURGICAL HISTORY OF 03/2020 colonoscopy and EGD SKIN BIOPSY HX VASCULAR SURGERY PROCEDURE Family History FAMILY HISTORY Problem Relation Age of Onset Lipids Mother other (parkinsons) Mother Prostate Cancer Father other (Tremors) Father Lipids Sister Coronary Artery Disease Sister Cabg x3 other (Brain bleed) Sister Lipids Sister Breast Cancer Sister Lipids Brother Coronary Artery Disease Brother CABG other (tremors) Brother Anesthesia Problems No Family History Patient Allergies ALLERGIES Allergen Reactions Latex, Natural Rubb* Rash, Intolerance, Itching Cephalexin Chlorhexidine Rash Diclofenac Iodine Rash During heart cath contrast dye Levaquin [Levofloxa* Rash Penicillins Rash Current Medications Current Outpatient Medications on File Prior to Visit Medication Sig pantoprazole DR (PROTONIX) 40 mg tablet Take 1 tablet by mouth once daily. calcium carbonate (CALTRATE) 600 mg calcium (1,500 mg) tab Take by mouth. ferrous sulfate (IRON, FERROUS SULFATE,) 325 mg (65 mg iron) tablet Take 1 tablet by mouth twice daily with meals. cholecalciferol, vitamin D3, (VITAMIN D3 ORAL) Take by mouth once daily. predniSONE (DELTASONE) 50 mg Take 1 tablet by mouth at 13 hours, 7 hours, and [address] dye infusion. (Patient not taking: Reported on 10/21/2022) nystatin (MYCOSTATIN) cream Apply to affected area twice daily. On rash on abdomen (Patient not taking: Reported on 09/22/2022) triamcinolone acetonide (KENALOG) 0.1 % cream Apply 1 application to affected area twice daily. Apply sparingly to area for rash/itching on abdominal wall (Patient not taking: Reported on 10/21/2022) acetaminophen (TYLENOL) 325 mg tablet Take 2 tablets by mouth every 6 hours as needed for pain. CALCIUM CARB/VIT D2/MINERALS (CALTRATE PLUS ORAL) Take by mouth. (Patient not taking: Reported on 09/22/2022) Current Facility-Administered Medications on File Prior to Visit Medication perflutren lipid microspheres 1.3 mL in NaCl (PF) 0.9% 10 mL injection (DEFINITY) sodium chloride 0.9 % (flush) 10 mL (BD POSIFLUSH) Social History Social History Tobacco Use Smoking status: Never Smokeless tobacco: Never Vaping Use Vaping Use: Never used Substance Use Topics Alcohol use: No Drug use: No Review of Symptoms REVIEW OF SYSTEMS See HPI, otherwise negative EXAM: BP 140/82 (BP Site: Left Arm, BP Position: Sitting, BP Cuff Size: Regular Adult) Pulse 69 Resp 16 Wt 70.7 kg (155 lb 12.8 oz) SpO2 97% BMI 28.50 kg/m General Appearance: Well appearing, alert, in no acute distress, well-hydrated, well nourished.. Lungs: Lungs clear to auscultation. No wheezing, rhonchi, rales.. Heart: RRR without murmur, gallop, or rubs. No ectopy. Abdomen: Abdomen soft. Bowel sounds normal. No masses, organomegaly, mild to moderate discomfort to general abdomen with palpation. Health Maintenance List DTAP,TDAP,TD(1 - Tdap) due on 05/19/2007 SHINGRIX VACCINE(2 of 3) due on 06/19/2009 PNEUMOCOCCAL: 65+(2 - PCV) due on 05/05/2021 ADVANCE DIRECTIVE DISCUSSION Never done COVID-19 VACCINE(1) due on 07/12/2023 INFLUENZA(1) due on 11/11/2022 DIABETES SCREEN due on 09/22/2025 COLORECTAL CANCER SCREENING due on 06/25/2031 BONE DENSITY Completed DEPRESSION ASSESSMENT Completed Data reviewed Previous records, office notes ASSESSMENT/PLAN: 1. Renal mass, right - ICD9: 593.9, ICD10: N28.89 (primary diagnosis) With hx of renal cell carcinoma, concern for same. CT to r/o. - CT KIDNEY WO/W IVCON - IV CONTRAST (RADIOLOGY PROCEDURE) 2. Acquired cyst of kidney - ICD9: 593.2, ICD10: N28.1 With hx of renal cell carcinoma, concern for same. CT to r/o. - CT KIDNEY WO/W IVCON - IV CONTRAST (RADIOLOGY PROCEDURE) 3. Other specified disorders of kidney and ureter - ICD9: 593.89, ICD10: N28.89 With hx of renal cell carcinoma, concern for same. CT to r/o. - CT KIDNEY WO/W IVCON - IV CONTRAST (RADIOLOGY PROCEDURE) 4. Calculus of gallbladder without cholecystitis without obstruction - ICD9: 574.20, ICD10: K80.20 Concern for possible gallbladder cause vs her hiatal hernia. - NM HEPATOBILIARY W EF AND/OR RX 5. Leukocytosis, unspecified type - ICD9: 288.60, ICD10: D72.829 - CBC + DIFF - CT KIDNEY WO/W IVCON - IV CONTRAST (RADIOLOGY PROCEDURE) Rick Leong APRN.WOM[employer] BASKET[employer] COACH documented in this encounter [facility] 10-10-2022 Miscellaneous Notes Patient notified of results and provider's instructions. Patient verbalizes understanding. Zora Call RN Message left for pt to call back. Kylah Rashid Ma [facility] radiologist recommends CT f/u on complex 1.8cm right renal mass, non-urgent. Telephone on 10/10/22 CT KIDNEY WO/W IVCON Phillip Hughes PA-C documented in this encounter [facility] 09-29-2022 Miscellaneous Notes Patient calling needs Creatinine results faxed to Chelsea at [facility] [phone] for her MRI for Monday. Printed lab result and faxed as requested. documented in this encounter [facility] 09-28-2022 Miscellaneous Notes FYI: Pt called in to check on PA for her MRI. This was authorized and contacted [facility] and they had the authorization and they called pt. Pt is scheduled for this Monday to have testing done. Denise Queen LPN documented in this encounter [facility] 09-28-2022 Miscellaneous Notes Detailed message left on secure VM. Stool negative for blood. Miracle Acuña APRN.CNP documented in this encounter [facility] 09-27-2022 Miscellaneous Notes MRI orders sent to [facility]. Pt aware. Patient aware to contact [facility] to schedule. Rose Araujo RN CT showed the kidney and did not identify any concerning findings. Please fax order to [facility] Miracle Acuña APRN.CNP Contacted patient and patient did not recall that pre-medication prior to MRI was ordered yesterday by Miracle Acuña. Patient states she does want to have MRI completed at [facility] if they are able to get her in soon, however before sending MRI order to [facility], patient asking Miracle Acuña if the MRI can include her right kidney as well? Pt states she is concerned there could be infection related to recent surgery related to a right renal mass that she had and she would like this to be included in on the imaging as well, if able. Please advise patient. After advising patient, please fax pancreas MRI order to [facility]. Thank you. Yes I sent in medication for her to take prior- I though she was told this yesterday. Miracle Acuña APRN.WOMEN'[employer] BASKETBALL COACH Patient notified of provider's message below. Patient asking to have message sent to MRI ordering provider Miracle Acuña [employer]OM[employer] BASKETB[employer] COACH: Pt states she is allergic to iodine and asks if it is ok for her to have the MRI with and without contrast? Patient states depending on the type of test, she is usually pre-medicated with one dose of prednisone one hour prior to any dye infusion, or per provider recommendation. Please advise patient. When calling patient back, please discuss if she would like MRI order sent to [facility] to have completed there, as noted in other 09/26 encounter note. Thank you. See previous TE from today from Miracle Acuña [employer]OM[employer] BASKETBALL [employer]ACH. I am completely in agreeance with Miracle that further testing is needed for the pancreas area. There is a small area of undefined concern that wasn't present on her previous imaging in May. Her white blood cell count is also elevated and this is not usual. Need for CBC recheck by end of the week to recheck the white blood cell count and recommend UA/culture to be done as well. Would recommend pursuing MRI abd/pancreas as ordered Jagjit Matias, DO documented in this encounter [facility] 09-26-2022 Miscellaneous Notes Patient called in and stated she would like to schedule MRI CAREN. No appointments available within driving distance in that time window within [facility] system. She is okay having the MRI at [facility]. I am unable to start the process of getting her paperwork sent to [facility] from home. Patient calling asking to have notes sent to Dr Matias before she schedules the MRI appt. She wants PCP to review the CT abd and pelvis she had done today. Patient said she thinks she is having bleeding issues again. She said it happens about once a yea, concerned this may be related to that problem? Please advise . Patient updated and denied symptoms other than small amount of abdominal discomfort that has been present since her surgery. She stated she dropped of her IFOBT to lab and felt it was dark. Advised patient of provider's message and order's. She voiced understanding. Will advise scheduling to contact patient to assit her with MRI appt. Please call patient and let her know CT shows a fluid density in the neck of her pancreas- needs further imaging with MRI. Is she having any other symptoms of infection- fevers, chills, abdominal/ back pain, diarrhea or urinary symptoms? Miracle Acuña APRN.MAYA documented in this encounter [facility] 09-23-2022 Miscellaneous Notes Patient calls with questions about taking prednisone and benadryl prior to procedure. Questions answered. Zora Call RN Detailed message left for patient on secure VM to advise of provider's message. CT for today needed cancelled and did so with Lynda at [facility] radiology. She advised patient can call and schedule Monday with her at her direct # [phone]. Advised patient of medications ordered and directions. Requested she call with any questions. It looks like she was given rx for prednisone and benadryl before her last CT. Orders placed in case she needs it since they are looking into possible flushing. If this needs to be cancelled would recommend she get this tomorrow or Monday as available. If she develops new symptoms of high fever, worsening abdominal pain, worsening nausea/vomiting would go to ED instead of waiting on imaging. Phoned Lynda at [facility] radiology and she stated recommended Prednisone 50 mg po 1 x 13 hrs prior to procedure, then 1 x 7 hrs prior to and finally 1 x 2 hrs prior to. Benadryl 50 mg po 1 x 1 hr prior to procedure. There is also Medrol 32mg po 1 x 12 hrs prior to procedure, then 1 x 2 hrs prior with a Benadryl 50 mg 1 hr prior to procedure also. She reports checking with Radiologist if patient's reaction last time was true allergy or if just flush related to procedure. She stated she will call back before we should cancel. Call received from Lynda With [facility] Radiology- Advised patient has iodine allergy and will need benadryl/prednisone ordered prior to procedure. Honed patient and reviewed provider's recommendations with her. Patient voiced understanding. Patient request scheduling contact her to schedule STAT CT. Reviewed. Recommend checking STAT CT abdomen and pelvis with high WBC, RUQ and surgery in the last 2-3 months to look for possible infection/abscess. Will forward this noted to her urologist to see if they have any additional recommendations. Please assist with scheduling. Will call patient as additional results come in. Phoned patient and reviewed results with her. Patient reports feeling better today. Reports little bit of a headache but reports she slept well last night. Regarding abdominal pain - she says little bit of discomfort but stated that has been present ever since her surgery. Denied nausea. Patient's preliminary CBC with diff is back and shows significantly elevated WBC without anemia. Her other cell lines are not yet back. A WBC this high could be a sign of severe infection. At her appointment yesterday she had some mild RUQ abdominal pain associated with nausea/vomiting x1. How is she feeling this morning? Is her abdominal pain any worse? New fever or other new symptoms? documented in this encounter [facility] 09-22-2022 Miscellaneous Notes Reviewed. Patient call in for Fatigue, increased tremors, and emesis x 1. Patient states that she has essential tremors normally however last night her tremors were worse. Patient denies tremors currently. Patient has been feeling fatigued lately. Patient states that she normally does feel tired to some degree. Patient states busy baby-sitting her grand kids, gardening, and landscaping. Patient is worried that her hemoglobin and iron could be low. Allen did have an emesis this morning that was dark in color. Patient denies blood and coffee ground emesis. Emesis did not have an abnormal odor. Patient had previous ate one piece of Dove chocolate. Patient has ate since having emesis. Patient states that she wouldn't say she is nauseated but her stomach does not feel right. Nurse Triage assessment completed with protocol recommending for disposition of see PCP in 3 days. Care advice reviewed with patient, patient stated understanding. Patient advised to contact office or seek evaluation in urgent care or ER if symptoms persist or gets worse. Reason for Disposition [1] Fatigue (i.e., tires easily, decreased energy) AND [2] persists > 1 week [1] SEVERE vomiting (e.g., 6 or more times/day, vomits everything) BUT [2] hydrated Answer Assessment - Initial Assessment Questions 1. VOMITING SEVERITY: Patient vomited x 1 this morning at 8:30. Emesis was dark in color, however patient ate chocolate the night before. 2. ONSET: One time at 8:30 am; Patient has ate since emesis, no vomiting since she ate. 3. FLUIDS: Patient has kept down fluids and food that she has ate today so far. 4. ABDOMINAL PAIN: Denies Abdominal Pain 5. DIARRHEA: stool light to medium brown 6. CONTACTS: Is there anyone else in the family with the same symptoms? Denies 7. CAUSE: Unsure; Worried about iron being low 8. HYDRATION STATUS: Patient has had no signs or symptoms of dehydration. 9. OTHER SYMPTOMS: Headache, fatigue, Answer Assessment - Initial Assessment Questions 1. DESCRIPTION: Tired and worn down 2. SEVERITY: Mild is still doing normal activities; Has been doing gardening and landscaping; [place]. 3. ONSET: Has been feeling fatigue for awhile; Baby sits grand-kids. 4. CAUSE: Worried that Iron is low 5. MEDICINES: Denies Medication changes 6. OTHER SYMPTOMS: Emesis x 1 Protocols used: [id number], Weakness (Generalized) and [id number] documented in this encounter [facility] 08-11-2022 History of Present illness Narrative Ortho Nurse - Established Patient Intake Room#: 2--Visit today to review Bone scan (left knee) and MRI results left hip.She has no pain . Problems continue with her gait and walking. Date: 08/11/2022 1:11 PM Patient: Letha Castro MR#: [id number] : 1940 Age: 81 y.o. Referring Physician: Self, Self Insurance: Payor: MEDICARE [employer] HMO OR PPO / Plan: MEDICARE [employer] PPO / Product Type: *No Product type* / Chief Complaint Patient presents with Left Knee - Pain, Imaging Results Left Hip - Pain, MRI Results Visit Vitals Temp 97.5 F (36.4 C) Ht 1.549 m (5' 1) Wt 71.3 kg (157 lb 3.2 oz) BMI 29.70 kg/m Pain Presence of Pain: denies pain/discomfort Recent Labs No results found for: CRP No results found for: SEDRATE No results found for: WBC, WBCCOUNT, WBCFETAL, HGB, HCT, PLATELET, MCV History Past Medical History: Diagnosis Date Back pain Basal cell carcinoma Face and shoulder Drug therapy Prednisone use Easy bruising Joint pain Osteoarthritis Past Surgical History: Procedure Laterality Date HIP REPLACEMENT Left 2015 ARTHROPLASTY KNEE TOTAL Right 2011 KNEE REPLACEMENT Left 2010 APPENDECTOMY 1964 MALIGNANT SKIN LESION EXCISION Basal cell carcinoma SHOULDER REPLACEMENT Left Family History: Her family history includes Cancer in her sister; Heart Disease - Other in her father. Social History: Her reports that she has never smoked. She has never used smokeless tobacco. She reports that she does not drink alcohol and does not use drugs. Outpatient Medications Prior to Visit Medication Sig Dispense Refill Calcium Carbonate-Vit D-Min (CALTRATE PLUS PO) Cholecalciferol (VITAMIN D PO) ferrous sulfate 325 (65 Fe) MG tablet Take 1 tablet by mouth 3 times daily with meals. Magnesium Hydroxide (MAGNESIA PO) Take by mouth. Multiple Vitamin (MULTIVITAMIN) Tab Probiotic Product (PROBIOTIC DAILY PO) Take by mouth daily. Zinc Sulfate (ZINC 15 PO) Take by mouth. dexamethasone 4 MG/ML Solution injection 1 mL by Other route As directed for 18 doses. (1 cc 3 x a week at physical therapy via iontophoresis) for up to 18 doses. (Patient not taking: Reported on 10/10/2017) 30 mL 0 meloxicam 15 MG Tab tablet Take 1 tablet by mouth daily. With food (Patient not taking: Reported on 05/17/2018) 30 tablet 2 No facility-administered medications prior to visit. Allergies: She is allergic to cephalexin, diclofenac, iodine, latex, levofloxacin, and penicillins. HPI: Patient is here today for evaluation of her operative hip. She is status post total hip arthroplasty in 2014 by myself. Last evaluated on 06/09/22, bilateral knee bone scan was ordered and MRI of the left hip was ordered as well. She reports a stiffness in knees, ankles, feet and whole body which occurs in the mornings. Primary complaint is balance and gait. Her denies pain but states her primary complaint is balance and gait. She is here today to go over studies. PHYSICAL EXAM: This is an alert, oriented, and age-appropriate female. She is in no distress. Pleasant and cooperative. EXTREMITIES: Lower extremities have no gross deformity. Normal stability. 5/5 motor. Intact sensation. Normal coordination. Skin intact. Left hip demonstrates full rotation with increased tenderness over the greater trochanter and IT band tendon. ROM for bilateral knees is 0-120. No effusions. No warmth. No laxity. Stable examination. Contralateral hip has full and supple motion. No pain. No impingement. No instability. Normal neurovascular status in lower extremities bilaterally. IMAGING: MRI LEFT HIP ON 06/23/22. IMPRESSION: 1. Postsurgical changes from left hip arthroplasty. No fracture identified. 2. 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 Tendinosis and intermediate grade partial tearing involving the anterior fibers of the left gluteus medius insertion at the greater trochanter with mild bursitis. 3. Moderate to severe degenerative disc disease the visualized lower lumbar spine, incompletely characterized. 4. Moderate right hip osteoarthritis without fracture or AVN. 5. Tendinosis and high-grade partial tearing of the right gluteus minimus and medius tendons with associated atrophy. 6. Moderate bilateral sacroiliac osteoarthritis. NUC 3 PHASE LIMITED BONE SCAN IMPRESSION: Total knee arthroplasty bilaterally. There is no definite scintigraphic evidence to suggest complication of hardware placement. IMPRESSION: Partial abductor muscle thinning/tearing, left > right. PLAN: I reviewed my findings with Letha. We discussed the diagnosis, physical exam findings and treatment options together. We reviewed both the hip MRI and bilateral knee bone scan study together. Bone scan is unremarkable, knees do not appear to be loose, no internal derangement with no laxity on exam. Hip MRI demonstrates thinning/tearing of abductor muscles. Discussed eventual detachment with surgical fixation. Kidney cancer surgery on 07/06/22 - she is not ready to commit to another operation. Will start formal PT and see how things develop over the summer. Next appt will be left open to her. All questions were answered to her satisfaction. I have reviewed the findings of my clinical staff below and agree with their assessment. Vitals: 08/11/22 1304 Temp: 97.5 degrees F (36.4 degrees C) Weight: 71.3 kg (157 lb 3.2 oz) Height: 1.549 m (5' 1) Pain Presence of Pain: denies pain/discomfort Recent Labs No results found for: CRP No results found for: SEDRATE No results found for: WBC, WBCCOUNT, WBCFETAL, HGB, HCT, PLATELET, MCV Past Medical History: Diagnosis Date Back pain Basal cell carcinoma Face and shoulder Drug therapy Prednisone use Easy bruising Joint pain Osteoarthritis Past Surgical History: Procedure Laterality Date HIP REPLACEMENT Left 2015 ARTHROPLASTY KNEE TOTAL Right 2011 KNEE REPLACEMENT Left 2009 APPENDECTOMY 1964 MALIGNANT SKIN LESION EXCISION Basal cell carcinoma SHOULDER REPLACEMENT Left Family History Problem Relation Age of Onset Heart Disease - Other Father Cancer Sister Social History Socioeconomic History Marital status: Tobacco Use Smoking status: Never Smokeless tobacco: Never Vaping Use Vaping Use: Never used Substance and Sexual Activity Alcohol use: No Drug use: Never Current Outpatient Medications: Calcium Carbonate-Vit D-Min (CALTRATE PLUS PO), , Disp: , Rfl: Cholecalciferol (VITAMIN D PO), , Disp: , Rfl: ferrous sulfate 325 (65 Fe) MG tablet, Take 1 tablet by mouth 3 times daily with meals., Disp: , Rfl: Magnesium Hydroxide (MAGNESIA PO), Take by mouth., Disp: , Rfl: Multiple Vitamin (MULTIVITAMIN) Tab, , Disp: , Rfl: Probiotic Product (PROBIOTIC DAILY PO), Take by mouth daily., Disp: , Rfl: Zinc Sulfate (ZINC 15 PO), Take by mouth., Disp: , Rfl: dexamethasone 4 MG/ML Solution injection, 1 mL by Other route As directed for 18 doses. (1 cc 3 x a week at physical therapy via iontophoresis) for up to 18 doses. (Patient not taking: Reported on 10/10/2017), Disp: 30 mL, Rfl: 0 meloxicam 15 MG Tab tablet, Take 1 tablet by mouth daily. With food (Patient not taking: Reported on 05/17/2018), Disp: 30 tablet, Rfl: 2 Allergies Allergen Reactions Cephalexin Diclofenac Iodine Latex Levofloxacin Penicillins Rash documented in this encounter [facility] 07-21-2022 History of Present illness Narrative PATIENT: Letha Castro [id number] 07/21/2022 POST OP This clinic note was copied and updated from previous note from 06/02/22 Chief Complaint: Follow up for right renal mass History of Present Illness: Letha Castro is a very pleasant 81 year old female who presents with a history of right renal mass found on US due to right sided abdominal pain. CT Kidney revealed 3.3cm right renal mass s/p partial nephrectomy 07/06/22 and pathology revealed [id number] clear cell renal carcinoma . Denies flank pain. Denies gross hematuria. No family history of kidney cancer Interval Hx: The patient is visiting today to review results of Surgical pathology 07/06/2022 FINAL DIAGNOSIS A. 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 - Tumor confined to the kidney (pT1a). - Surgical margins are negative for tumor. Patient is doing well. She notes that she had an allergic reaction to the solution(chlorhexidine) to sterilize her skin before surgery. She noted she was allergic to iodine, which we did not use . We have noted it in her allergies for future references. Physical Exam: Patient is a 81 year old female Constitutional: Vitals: Weight 70.3 kg (155 lb). General Appearance Adult: Alert, no acute distress, oriented Mouth: throat/mouth:normal as far as I can tell behind the mask Lungs/Repiratory: no respiratory distress, or pursed lip breathing Heart: No obvious jugular venous distension present, normal heart rate Abdomen: soft, nontender, no organomegaly or masses, Estimated body mass index is 28.35 kg/m as calculated from the following: Height as of 06/29/22: 157.5 cm (5' 2). Weight as of this encounter: 70.3 kg (155 lb)., scars inscisions clean, dry and intact Musculoskeltal: extremities normal, no peripheral edema Skin: no noted suspicious lesions or rashes Neuro: Alert, oriented, speech and mentation normal Psych: affect and mood normal Gait: Normal without assistance Labs and Pathology: Surgical pathology 07/06/2022 FINAL DIAGNOSIS A. 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 - Tumor confined to the kidney (pT1a). - Surgical margins are negative for tumor. Creatinine (mg/dL) Date Value 07/07/2022 0.84 07/06/2022 0.80 06/29/2022 0.80 05/03/2022 0.81 02/21/2022 0.85 07/13/2021 0.81 05/12/2021 1.29 01/29/2021 0.72 02/05/2020 0.96 11/01/2019 0.84 06/20/2018 0.65 06/04/2018 0.71 01/09/2018 0.69 01/11/2017 0.79 11/12/2016 0.79 05/02/2014 0.85 02/12/2013 0.68 Imaging: CT Kidney 05/17/22 IMPRESSION: 3.2 x 3.3 x 2.9 cm right renal mass, most likely renal cell carcinoma. Right kidney focal cortical scarring overlying a 1 cm stone in the lateral inferior pole. Bilateral subcentimeter renal cysts. Cholelithiasis. Hiatal hernia. Assessment: 1) Kidney Cancer [id number] Histologic subtype clear cell ISUP Grade 2 kidney cancer s/p Robotic Partial nephrectomy on 07/06/2022 Plan: 1.) Follow up in [address] abd, chest xray, CBC, BMP Zora Hernandes APRN.WOMEN'S BASKETBALL COACH Scribed for Dr. Skylar Smith by edy White scribe on 07/21/2022 I agree with the Chief Complaint, ROS, and Past Histories independently gathered by the clinical developer support engineer including scribe and or medical student and or STEFANIE and or resident or fellow and the remaining scribed note accurately describes my personal service to the patient. Skylar Smith MD, MS [facility] documented in this encounter [facility] 07-14-2022 History of Present illness Narrative CC: Letha Castro is a 81 year old female who presents to the office for follow up HPI: Patient is overall doing well. She is currently post operative day 5 from partial nephrectomy robotic laparoscopic procedure by Dr. Skylar Smith. Has upcoming post operative follow up with surgeon. Bowel movements are returning to normal. Appetite is slowly improving. She has been able to walk small amounts daily to help her symptoms of gassiness as well. She has fatigue and some foggy brain side effects from the anesthesia. Feels her incisional areas are healing up well without concerns. She does have a red itching rash present all over abdomen- is concerned potential allergic reaction to what cleaned her skin Blood pressure overall has been controlled Arthritis, stable. HPL, stable PAST MEDICAL HISTORY Diagnosis Date Arthritis Essential tremor History of transfusion Hyperlipidemia Iron deficiency Overweight (BMI 25.0-29.9) PMH - PAST MEDICAL HISTORY OF arthritis PMH - PAST MEDICAL HISTORY OF varicose veins PMH - PAST MEDICAL HISTORY OF mitral regurg PAST SURGICAL HISTORY Procedure Laterality Date APPENDECTOMY APPENDECTOMY HX ARTHRP ACETBLR/PROX FEM PROSTC AGRFT/ALGRFT 01/28/2014 left arthroplasty ARTHRP KNE CONDYLE&PLATU MEDIAL&LAT COMPARTMENTS 02/12/2009 Knee replacement, total left ARTHRP KNE CONDYLE&PLATU MEDIAL&LAT COMPARTMENTS 2009 Right knee COLONOSCOPY 06/24/2021 repeat in 10 years COLONOSCOPY FLX DX W/COLLJ SPEC WHEN PFRMD 2004 Colonoscopy COLONOSCOPY FLX DX W/COLLJ SPEC WHEN PFRMD 07/17/2014 Colonoscopy EGD W/O [facility] SPEC VARICIES INJ 06/24/2021 ESOPHAGOGASTRODUODENOSCOPY TRANSORAL DIAGNOSTIC 07/17/2014 EGD JOINT REPLACEMENT HX PAST SURGICAL HISTORY OF Bilateral 2005 VEIN STRIPPING PAST SURGICAL HISTORY OF 1999 heart cath PAST SURGICAL HISTORY OF 03/2020 colonoscopy and EGD SKIN BIOPSY HX VASCULAR SURGERY PROCEDURE Current Outpatient Medications Medication Sig acetaminophen (TYLENOL) 325 mg tablet Take 2 tablets by mouth every 6 hours as needed for pain. oxyCODONE IR (ROXICODONE) 5 mg immediate release tablet Take 1 tablet by mouth every 8 hours as needed for pain. docusate sodium (COLACE) 100 mg capsule Take 1 capsule by mouth twice daily. methocarbamol (ROBAXIN) 750 mg tablet Take 1 tablet by mouth three times daily as needed (For muscle pain/spasms) for up to 21 doses. calcium carbonate (CALTRATE) 600 mg calcium (1,500 mg) tab Take by mouth. pantoprazole DR (PROTONIX) 40 mg tablet Take 1 tablet by mouth once daily. ferrous sulfate (IRON, FERROUS SULFATE,) 325 mg (65 mg iron) tablet Take 1 tablet by mouth twice daily with meals. cholecalciferol, vitamin D3, (VITAMIN D3 ORAL) Take by mouth once daily. CALCIUM CARB/VIT D2/MINERALS (CALTRATE PLUS ORAL) Take by mouth. nystatin (MYCOSTATIN) cream Apply to affected area twice daily. On rash on abdomen triamcinolone acetonide (KENALOG) 0.1 % cream Apply 1 application to affected area twice daily. Apply sparingly to area for rash/itching on abdominal wall Current Facility-Administered Medications Medication Dose Route Frequency perflutren lipid microspheres 1.3 mL in NaCl (PF) 0.9% 10 mL injection (DEFINITY) INTRAVENOUS DIRECTED PRN sodium chloride 0.9 % (flush) 10 mL (BD POSIFLUSH) 10 mL INTRAVENOUS DIRECTED PRN ALLERGIES Allergen Reactions Latex, Natural Rubb* Rash, Intolerance, Itching Cephalexin Diclofenac Iodine Rash During heart cath contrast dye Levaquin [Levofloxa* Rash Penicillins Rash Social History Tobacco Use Smoking status: Never Smokeless tobacco: Never Vaping Use Vaping Use: Never used Substance Use Topics Alcohol use: No Drug use: No ROS: See HPI PE: BP 146/88 Pulse 76 Temp (Src) 97 (Left Tympanic) Resp 16 Wt 155 lb (70.3kg) Gen: A&OX3, NAD, non-toxic appearing, mildly fatigued appearing HEENT: PERRLA, EOMs intact b/l, nares without drainage, pharynx without erythema, exudate, lesions, or drainage. Uvula midline. MMM Neck: No LAD, no thyromegaly, no meningismus. CV: RRR, no murmur Lungs: CTA b/l, no wheezing Abd: soft, minimal incisional soreness without drainage from 3 lap port sites, otherwise normal bowel sounds No leg edema, normal pulses Skin: erythematous papular rash on abdomen without signs of infection ASSESSMENT/PLAN: 1. Dermatitis contact - ICD9: 692.9, ICD10: L25.9 (primary diagnosis) - discussed skin care of rash - follow up if symptoms persist or worsen. - NYSTATIN 100,000 UNIT/GRAM TOPICAL CREAM - TRIAMCINOLONE ACETONIDE 0.1 % TOPICAL CREAM 2. Renal mass, right - ICD9: 593.9, ICD10: N28.89 S/p surgical resection, overall did well with procedure. F/u with surgeon 3. Generalized abdominal pain - ICD9: 789.07, ICD10: R10.84 S/p surgical resection of right renal mass, symptoms are improving, overall did well with procedure. F/u with surgeon 4. Vitamin B12 deficiency - ICD9: 266.2, ICD10: E53.8 Continue supplement, recheck labs - VITAMIN B12 BLOOD 5. Other iron deficiency anemia - ICD9: 280.8, ICD10: D50.8 Continue supplement, recheck labs - IRON + TIBC - FERRITIN BLD 6. Vitamin D deficiency - ICD9: 268.9, ICD10: E55.9 Continue supplement, recheck labs - VITAMIN D 25 HYDROXY 7. Hyperglycemia - ICD9: 790.29, ICD10: R73.9 Continue supplement, recheck labs - HGB A1C 8. Dyslipidemia - ICD9: 272.4, ICD10: E78.5 - to be determined upon return of lab results - Encouraged following a low fat, low cholesterol diet. - Discussed the benefits of regular aerobic exercise and weight loss. - Check fasting lipid panel - COMP METABOLIC PANEL - LIPID PANEL BASIC - CBC Jagjit Matias DO Return if no improvement. Follow up with Jagjit Matias DO. To ER if develops chest pain, shortness of breath Discussed risks, benefits, alternatives, and potential side effects of medications. Patient/Guardian expressed understanding and agreed with the plan. See patient instructions. Jagjit Matias DO [address] [place] [address] documented in this encounter [facility] 07-05-2022 Miscellaneous Notes Noted Jagjit Matias DO Phoned patient and given providers message below. Patient denies s/s UTI, no pain or burning with urination, no urgency, no frequency, no fever. Wants pcp to know she is scheduled for renal cell cancer surgery next Wed with [facility]. Reports she was instructed to stop all medications except protonix and iron for the surgery. Please inform patient that her urinalysis shows blood and white blood cells. Is she having any UTI symptoms? Jagjit Matias DO documented in this encounter [facility] 06-29-2022 History and physical note HISTORY AND PHYSICAL EXAMINATION SERVICE DATE: 06/29/2022 SERVICE TIME: 2:14 PM PRIMARY CARE PHYSICIAN: Jagjit Matias DO REASON FOR VISIT: Letha Castro is a 81 year old female who is scheduled for ROBOTIC LAPAROSCOPIC NEPHRECTOMY PARTIAL on 07/06/2022 at [facility]. Patient is being seen at the request of Dr. Skylar Smith for consultation. My final recommendation will be communicated back to the requesting physician by way of shared medical record or letter. The patient has the following: ACTIVE PROBLEM LIST Varicose Veins of Lower Extremities With Other Complications Hip Osteoarthritis Pain in Joint, Ankle and Foot Arthritis, Midfoot Tremors of Nervous System Overweight (Bmi 25.0-29.9) Essential Tremor Hyperlipidemia Glenohumeral Arthritis, Left Status Post Total Shoulder Arthroplasty Status Post Replacement of Left Shoulder Joint Left Hip Pain Chronic Left-Sided Low Back Pain With Left-Sided Sciatica Absolute Anemia Acute Constipation Fatigue Limping History of Hip Replacement, Total, Left Nonrheumatic Mitral Valve Regurgitation Vitamin D Deficiency Vitamin B12 Deficiency Subjective CHIEF COMPLAINT: pre op exam, renal mass HPI: Letha is a 81 year old female who presents to [facility] for pre op exam. Right renal mass was noted on US when patient was being worked up for right sided abdominal pain. PAST MEDICAL HISTORY Diagnosis Date Arthritis Essential tremor History of transfusion Hyperlipidemia Iron deficiency Overweight (BMI 25.0-29.9) PMH - PAST MEDICAL HISTORY OF arthritis PMH - PAST MEDICAL HISTORY OF varicose veins PMH - PAST MEDICAL HISTORY OF mitral regurg PAST SURGICAL HISTORY Procedure Laterality Date APPENDECTOMY APPENDECTOMY HX ARTHRP ACETBLR/PROX FEM PROSTC AGRFT/ALGRFT 01/28/2014 left arthroplasty ARTHRP KNE CONDYLE&PLATU MEDIAL&LAT COMPARTMENTS 02/12/2009 Knee replacement, total left ARTHRP KNE CONDYLE&PLATU MEDIAL&LAT COMPARTMENTS 2010 Right knee COLONOSCOPY 06/24/2021 repeat in 10 years COLONOSCOPY FLX DX W/COLLJ SPEC WHEN PFRMD 2005 Colonoscopy COLONOSCOPY FLX DX W/COLLJ SPEC WHEN PFRMD 07/17/2014 Colonoscopy EGD W/O [facility] SPEC VARICIES INJ 06/24/2021 ESOPHAGOGASTRODUODENOSCOPY TRANSORAL DIAGNOSTIC 07/17/2014 EGD JOINT REPLACEMENT HX PAST SURGICAL HISTORY OF Bilateral 2005 VEIN STRIPPING PAST SURGICAL HISTORY OF 1999 heart cath PAST SURGICAL HISTORY OF 03/2020 colonoscopy and EGD SKIN BIOPSY HX VASCULAR SURGERY PROCEDURE FAMILY HISTORY Problem Relation Age of Onset Lipids Mother other (parkinsons) Mother Prostate Cancer Father other (Tremors) Father Lipids Sister Coronary Artery Disease Sister Cabg x3 other (Brain bleed) Sister Lipids Sister Breast Cancer Sister Lipids Brother Coronary Artery Disease Brother CABG other (tremors) Brother SOCIAL HISTORY: Social History Tobacco Use Smoking status: Never Smokeless tobacco: Never Vaping Use Vaping Use: Never used Substance Use Topics Alcohol use: No Drug use: No Prior to Admission medications as of 06/29/22 1412 Medication Sig Last Dose Taking calcium carbonate (CALTRATE) 600 mg calcium (1,500 mg) tab Take by mouth. predniSONE (DELTASONE) 50 mg Take 1 tablet by mouth at 13 hours, 7 hours, and [address] dye infusion. Patient not taking: Reported on 06/10/[address] (PROTONIX) 40 mg tablet Take 1 tablet by mouth once daily. ferrous sulfate (IRON, FERROUS SULFATE,) 325 mg (65 mg iron) tablet Take 1 tablet by mouth twice daily with meals. aspirin, enteric coated (ECOTRIN LOW STRENGTH) 81 mg EC tablet Take 1 tablet by mouth twice daily for 14 days. cholecalciferol, vitamin D3, (VITAMIN D3 ORAL) Take by mouth once daily. CALCIUM CARB/VIT D2/MINERALS (CALTRATE PLUS ORAL) Take by mouth. aspirin, enteric coated (ASPIRIN, ENTERIC COATED) 81 mg EC tablet Take 81 mg by mouth once daily. Patient not taking: Reported on 06/29/2022 THERAPEUTIC MULTIVITAMIN TAB Take one(1) tablet daily. Patient not taking: Reported on 06/29/2022 Medication Comments documented by Jagjit Matias DO on 05/11/2021 at 0925. HOLD aspirin for now (04/2021) ALLERGIES Allergen Reactions Latex, Natural Rubb* Rash, Intolerance, Itching Cephalexin Diclofenac Iodine Rash During heart cath contrast dye Levaquin [Levofloxa* Rash Penicillins Rash COVID VACCINATION STATUS: Not vaccinated, prior infection REVIEW OF SYSTEMS: PAIN ASSESSMENT: General: No weight loss, malaise or fevers. 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 No neurological symptoms or problems. Respiratory: No history of current cough or dyspnea, or pneumonia in the past 6 weeks. No history of respiratory/pulmonary symptoms or problems. Cardiovascular: HLD, MV regurg Negative for Recent IN, Arrhythmia, Chest Pain GI: GERD No history of GI symptoms or problems. No history of esophageal varices, recent ascites, or ETOH greater than 2 drinks per day. : No history of dysuria, frequency or incontinence,, stones or chronic kidney disease RADIOLOGICAL TECHNOLOGIST: Negative for abnormal vaginal bleeding, abnormal vaginal discharge. : Denies, No LMP recorded. Patient is postmenopausal. Endocrine: No history of diabetes. Has not taken steroids within the past 30 days. No history of endocrinological symptoms or problems. Hematology: No history of bleeding or clotting disorder. Pt is not taking anti-coagulation or platelet medications. No history of hematological symptoms or problems. Oncology: No history of CA metastasis, chemo within 30 days, or radiotherapy within 90 days. Has not lost 10% of body wt in 6 months. No history of oncological symptoms or problems. Skin cancer history-basal cell. Psych: No history of psychiatric symptoms or problems. Musculoskeletal: Left DANICA, Bilateral TKA, Left shoulder replacedNegative for joint pain or swelling, back pain or muscle pain. Skin: Negative for lesions, rash and itching. Objective PHYSICAL EXAM: VITALS: BP 148/83 Pulse 78 Temp (Src) 98.7 (Temporal) Ht 5' 2 (1.58m) Wt 155 lb (70.3kg) SpO2 96% BMI 28.34 kg/(m^2). General: Alert and oriented, No acute distress, Healthy appearance Skin: Normal color, no rash, no lesions. HEENT: EOM, pupils equal, round and reactive. Cardiovascular: Normal S1 & S2, no rubs, murmurs or gallops. No JVD. Pulse regular. Lungs: Normal breath sounds, no wheezes or crackles. Abdomen: Positive bowel sounds Extremities: No deformity, no edema or tenderness, no joint swelling or clubbing. Neurological: Tremors Pulses: Carotid and radial pulses normal +2. Diagnostic tests reviewed for today's visit: Lab Value Units Date High Low HB 13.7 g/dL 05/03/2022 15.5 11.5 HCT 44.1 % 05/03/2022 46.0 36.0 WBC 5.93 k/uL 05/03/2022 11.00 3.70 PLT 231 k/uL 05/03/2022 400 150 NA 140 mmol/L 05/03/2022 144 136 K 4.2 mmol/L 05/03/2022 5.1 3.7 GLUC 88 mg/dL 05/03/2022 99 74 BUN 23 mg/dL 05/03/2022 21 7 CREAT 0.81 mg/dL 05/03/2022 0.96 0.58 PTSEC No results within date range. INR No results within date range. APTT No results within date range. ALT 16 U/L 05/03/2022 38 7 AST 26 U/L 05/03/2022 35 13 TBILI 0.6 mg/dL 05/03/2022 1.3 0.2 TSH No results within date range. Hemoglobin A1C (%) Date Value 07/13/2021 5.5 01/09/2018 5.8 PENDING ECHO 01/04/2022 CONCLUSIONS: - Exam indication: Initial evaluation valvular heart disease - The left ventricle is normal in size. Left ventricular systolic function is normal. EF = 60 5% (2D biplane) Grade I left ventricular diastolic dysfunction. - The right ventricle is normal in size. Right ventricular systolic function is normal. - The left atrial cavity is mildly dilated. - There are no significant valvular abnormalities. - Exam was compared with the prior echocardiographic exam performed on 06/02/2006, no significant change. Assessment/Plan Essential tremor Tremor of hands and head Nonrheumatic mitral valve regurgitation Stable. Last echo 12/2021- no significant valvular abnormalities. Gastroesophageal reflux disease without esophagitis On protonix METS: Walk a block or two on level ground (2.75 METs) Climb a flight of stairs or walk up a hill (5.50 METs) Patient denies any chest pain or undue shortness of breath with the above physical activity. ASA Class: 3 ANESTHESIA FINDINGS: Intubation History: No history of difficult intubation Significant Anesthesia Considerations: None Airway Exam: General: Normal appearance Mallampati Score is CLASS II ULBT: Class I - Lower incisors can bite the upper lip above the simon line Neck: Normal appearance and function, Distance from hyoid to mentum during neck extension is at least 3 finger breaths Mouth: Normal tongue size and Mouth opening greater than 2 finger breaths Dentition: Intact, bridge Airway History: No abnormal airway history STOP BANG Score: Criteria: Age over 50 (81 year old) Score = 1 PLAN This patient is optimally prepared for surgery pending LABS. CONSULTS: Patient does not require consults for optimization at this time. The Following Tests/Procedures Have Been Initiated: Orders per surgery Planned Anesthetic: Per anesthesia choice Instructions Given to Patient: Instructions located in the after visit summary. Patient given verbal and written preop instructions and voices comprehension and compliance. SIGNATURE: Lyssa Lundberg APRN.CNP PATIENT NAME: Letha Castro DATE: June 29, 2022 TIME: 2:37 PM documented in this encounter [facility] 06-29-2022 Instructions Lyssa Lundberg APRN.CNP - 06/29/2022 2:08 PM EDT PATIENT PREOPERATIVE INSTRUCTIONS No ref. provider found has scheduled you for your procedure at this surgery center: [facility] [place] [facility] Scheduling Office: [phone] --[address] [place] [address]. Please read below carefully for your personalized instructions. Dietary Restrictions: - No solid food after midnight. - You may have 12 ounces of clear liquids (water, clear juices such as apple juice or gatorade, carbonated beverages, clear tea, black coffee, jello) until 2 hours before scheduled arrival at facility. Is Patient Diabetic:No Medications: Unless instructed differently below, stay on all of your medications until your surgery. Approved medications to take the morning of surgery with a sip of water: pantoprazole If you start any new medications after today's visit, please contact the surgeon's office. Blood Thinning Medications: - Stop NSAIDS (Ibuprofen, Advil, Aleve, Motrin, Celebrex, Mobic, etc.) 7 days before surgery, as directed by your surgeon. - Stop Aspirin 7 days before surgery, as directed by your surgeon. - Stop Vitamin E, ALL multi-vitamins, herbals and dietary supplements 7 days before surgery. - You may take Tylenol (Acetaminophen) or any of your pain medications that do not contain aspirin or NSAIDS as needed. Important Reminders: - If you use CPAP/BIPAP, bring the machine with you to the surgery center. - Candy, mints, and tobacco products are NOT permitted the morning of surgery. - Hearing aids, dentures and glasses may be worn the morning of surgery. - NO jewelry, body piercings, makeup, hairpins or contacts are to be worn the day of surgery. If you develop symptoms such as a fever, cold, or flu, or have other changes to your health within TWO DAYS of scheduled surgery or the morning of surgery, please contact the surgery center above. Personal Belongings: -Please have photo ID and insurance cards. -If you do not have a copy of advance directives on file with us, please bring a copy with you on the day of surgery. - Leave ALL valuables and money at home or with family members. For Outpatient Procedures: - YOU MUST HAVE A RESPONSIBLE INSTRUMENTATION DESIGNER TAKE YOU HOME. A SOCIAL WORKER ASSISTANT OR LIGHT EQUIPMENT OPERATOR CANNOT BE MADE A RESPONSIBLE INSTRUMENTATION DESIGNER. - We recommend that a responsible person stays with you overnight to take care of you. - You cannot stay in a hotel alone after outpatient surgery. You will not be permitted to have your surgery, if you do not have someone to take care of you. Arrival Time for Surgery: - To obtain your arrival time for surgery, call your physician's office the day before your surgery. - If your surgery is scheduled for Monday, call the Monday before. Your surgeon s bar roller will tell you what time to call the office. - If you have not reached the departmental bar roller by 5 P.M., call [phone] after 5 P.M. the day before your surgery. Please be aware that emergency situations arise, which may delay or change your surgical time. If this happens, we will notify you as soon as possible and regret any inconvenience. If you already have an Advance Directive, please fax a copy to [phone] or email to for it to be added to your chart. If you do not have an Advance Directive, you can find the appropriate form and more information at [email or web address]. We recommend that you complete the Advance Directive form found on the website and bring it with you the day of your surgery. It can be witnessed and scanned into your chart that day. Lyssa Lundberg APRN.CNP documented in this encounter [facility] 06-29-2022 History of Present illness Narrative [facility] PRE-OP NOTE Letha Castro is a 81 year old female. Pre-op Date: June 29, 2022 Date of Procedure: 07/06/2022 Does the patient have an active COVID-19 test in [facility]? N/A Procedure/Surgery: Robotic Laparoscopic nephrectomy partial Diagnosis: renal mass Primary Surgeon: MD Smith Christopher BP 149/81 (BP Site: Left Arm, BP Position: Sitting, BP Cuff Size: Regular Adult) Pulse 72 Pain Assessment: Are you currently having pain? No 0 on a scale of 0 to 10 Surgical Guide Book Status: Patient given book today. Dialysis Guide Book Status: N/A Allergies Reviewed: Yes Medications Reviewed: Yes Is patient currently on oral steroids?: No Has the patient had a UTI in the past month?: No. Does the patient have any artificial joints (last 2 years), metal parts, pacemakers or cardiac/ureteral stents in place?: Yes, bilateral knees, left hip, left shoulder Does the patient have diabetes?: No Is the patient routinely taking anticoagulants?: No. Previously took aspirin but discontinued a year ago Can the patient have an IV put in either arm?: Yes Urine Dip Complete?: Yes URINE CULTURE COMPLETE?: Yes Ostomy/Stoma Nurse appointment made/completed: N/A [facility]/Medical Clearance: Cleared per [facility] - To be seen [facility]: Cleared per [facility] - N/A All testing on cureform has been scheduled: Yes Consent Signed: Consent not in Epic. Surgeon notified via TRUECar message. DOS Orders Placed and Signed: Yes. Pre-op H&P Done by [facility]: To be done by [facility]. PATIENT INSTRUCTIONS FOR SURGERY 1.) DO NOT HAVE ANYTHING TO EAT AFTER MIDNIGHT THE DAY BEFORE SURGERY except for certain morning medications as instructed by the doctor. Candy, mints, gum, and smoking are NOT permitted. You may drink clear liquids (Sprite, water, geoff basim) up to two hours before your arrival time on the day of surgery. 2.) Medications to be taken on the morning of surgery with a few sips of water: per [facility] 3.) Please bring all your prescribed inhalers (if you have any you normally take) to the hospital. 4.) Arrival time: Call for arrival. 5.) Prep given: No 6.) Lovenox instructions given: N/A 7.) Patient reminded that surgery time provided day before surgery is tentative based on potential changes with transplants. Recommendations: This patient is optimally prepared for surgery pending IMPACT and LABS. VICKIE Kauffman documented in this encounter [facility] 06-21-2022 Miscellaneous Notes Pt. informed. Please inform patient that this would have to be something that the general surgeon for the gallbladder surgery would have to coordinate with the Urologist for the renal surgery Jagjit Matias DO Pt called and is notified of providers message and instructions. Pt voices understanding. Pt states she having renal cell cancer removal on July 06, 2022. She wanted to know if they could just remover her gallbladder then. I told her they usually only like to keep a Pt under anesthesia for so long, so I'm not sure that would be an option. Lisa Sanchez RN Ordered. Please schedule. Thank you, Kelsey Mann APRN.MAYA Pt informed, verbalized understanding. Pt reports she would like to proceed with Hida scan and consult to General surgery. Vandana Valverde Please let Letha know I received her ultrasound results. Her pelvic ultrasound is unremarkable. The abdominal ultrasound again shows the known mass to her right kidney. It also again shows stones in her gallbladder. If she would like to pursue working up her gallbladder further, I would recommend we do a Hida scan, which looks at how well her gallbladder is functioning, as well as getting a consult to general surgery for their opinion. Please let me know what she would like to do. Rick Leong APRN.MAYA documented in this encounter [facility] 06-16-2022 History of Present illness Narrative Radiology Service Progress Note PATIENT NAME: Letha Castro DATE OF SERVICE: June 16, 2022 TIME: 11:38 AM PATIENT IDENTITY VERIFICATION COMPLETED USING TWO (2) IDENTIFIERS: Name and Date of confirmed by patient verbally. FALL SCREENING: Has the patient had 2 falls in the last year or 1 fall with injury or currently using an Ambulatory Assistive Device (Walker, Cane, Wheelchair, Crutches, etc.)? No PATIENT GENDER DATA: Female. status: : No status: NO. PATIENT RELEVANT IMPLANT DATA REVIEWED: Not Applicable RADIOLOGY DEPARTMENT: Ultrasound PERIPHERAL IV DATA: Not applicable SIGNED BY: Marium Sheikh RDMS RVT June 16, 2022 11:38 AM documented in this encounter [facility] 06-13-2022 Miscellaneous Notes Spoke to Mrs. Castro. After discussion, she elected to keep DOS on July 06 as scheduled. All questions answered and patient verbalized understanding. Ana Maria Berg RN, BSN Triage Nurse Department of Urology [facility] documented in this encounter [facility] 06-13-2022 Miscellaneous Notes Opened in error. documented in this encounter [facility] 06-10-2022 History of Present illness Narrative Chief Complaint Patient presents with: Abdominal Pain: Nausea, RUQ US on 05/11 HPI Letha Castro is a 81 year old female who presents here today for Above Complaints. Today: Has ultrasound on 05/11/2022 because her stomach didn't feel right. Has general discomfort in her abdomen. Doesn't have pain, is just a weird feeling. Bowel movements are as normal. No urinary sx. Does have nausea but no vomiting. Nausea is not constant, can't say if it's r/t anything for sure but does notice sometimes with spicy foods. Doesn't eat anything fried. Appetite is good as normal. Past medical history, appointments, medications, allergies reviewed. Previous Medical History PAST MEDICAL HISTORY Diagnosis Date Arthritis Essential tremor History of transfusion Hyperlipidemia Iron deficiency Overweight (BMI 25.0-29.9) PMH - PAST MEDICAL HISTORY OF arthritis PMH - PAST MEDICAL HISTORY OF varicose veins PMH - PAST MEDICAL HISTORY OF mitral regurg Previous Surgical History PAST SURGICAL HISTORY Procedure Laterality Date APPENDECTOMY APPENDECTOMY HX ARTHRP ACETBLR/PROX FEM PROSTC AGRFT/ALGRFT 01/28/2014 left arthroplasty ARTHRP KNE CONDYLE&PLATU MEDIAL&LAT COMPARTMENTS 02/12/2009 Knee replacement, total left ARTHRP KNE CONDYLE&PLATU MEDIAL&LAT COMPARTMENTS 2009 Right knee COLONOSCOPY 06/24/2021 repeat in 10 years COLONOSCOPY FLX DX W/COLLJ SPEC WHEN PFRMD 2004 Colonoscopy COLONOSCOPY FLX DX W/COLLJ SPEC WHEN PFRMD 07/17/2014 Colonoscopy EGD W/O [facility] SPEC VARICIES INJ 06/24/2021 ESOPHAGOGASTRODUODENOSCOPY TRANSORAL DIAGNOSTIC 07/17/2014 EGD JOINT REPLACEMENT HX PAST SURGICAL HISTORY OF Bilateral 2005 VEIN STRIPPING PAST SURGICAL HISTORY OF 1999 heart cath PAST SURGICAL HISTORY OF 03/2020 colonoscopy and EGD SKIN BIOPSY HX VASCULAR SURGERY PROCEDURE Family History FAMILY HISTORY Problem Relation Age of Onset Lipids Mother other (parkinsons) Mother Prostate Cancer Father other (Tremors) Father Lipids Sister Coronary Artery Disease Sister Cabg x3 other (Brain bleed) Sister Lipids Sister Breast Cancer Sister Lipids Brother Coronary Artery Disease Brother CABG other (tremors) Brother Patient Allergies ALLERGIES Allergen Reactions Latex, Natural Rubb* Rash, Intolerance, Itching Cephalexin Diclofenac Iodine Rash During heart cath contrast dye Levaquin [Levofloxa* Rash Penicillins Rash Current Medications Current Outpatient Medications on File Prior to Visit Medication Sig calcium carbonate (CALTRATE) 600 mg calcium (1,500 mg) tab Take by mouth. pantoprazole DR (PROTONIX) 40 mg tablet Take 1 tablet by mouth once daily. ferrous sulfate (IRON, FERROUS SULFATE,) 325 mg (65 mg iron) tablet Take 1 tablet by mouth twice daily with meals. cholecalciferol, vitamin D3, (VITAMIN D3 ORAL) Take by mouth once daily. CALCIUM CARB/VIT D2/MINERALS (CALTRATE PLUS ORAL) Take by mouth. aspirin, enteric coated (ASPIRIN, ENTERIC COATED) 81 mg EC tablet Take 81 mg by mouth once daily. THERAPEUTIC MULTIVITAMIN TAB Take one(1) tablet daily. predniSONE (DELTASONE) 50 mg Take 1 tablet by mouth at 13 hours, 7 hours, and [address] dye infusion. (Patient not taking: Reported on 06/10/2022) docusate sodium (COLACE) 100 mg capsule Take 1 capsule by mouth twice daily. For constipation (Patient not taking: No sig reported) aspirin, enteric coated (ECOTRIN LOW STRENGTH) 81 mg EC tablet Take 1 tablet by mouth twice daily for 14 days. Current Facility-Administered Medications on File Prior to Visit Medication perflutren lipid microspheres 1.3 mL in NaCl (PF) 0.9% 10 mL injection (DEFINITY) sodium chloride 0.9 % (flush) 10 mL (BD POSIFLUSH) Social History Social History Tobacco Use Smoking status: Never Smokeless tobacco: Never Vaping Use Vaping Use: Never used Substance Use Topics Alcohol use: No Drug use: No Review of Symptoms REVIEW OF SYSTEMS See HPI, otherwise negative EXAM: BP 122/80 (BP Site: Right Arm, BP Position: Sitting, BP Cuff Size: Regular Adult) Pulse 78 Resp 16 Wt 71.4 kg (157 lb 6.4 oz) SpO2 98% BMI 29.74 kg/m General Appearance: Well appearing, alert, in no acute distress, well-hydrated, well nourished.. Lungs: Lungs clear to auscultation. No wheezing, rhonchi, rales.. Heart: RRR without murmur, gallop, or rubs. No ectopy. Abdomen: Normal abdominal exam, Abdomen soft, non-tender. Bowel sounds normal. No masses, organomegaly. Health Maintenance List COVID-19 VACCINE(1) Never done DTAP,TDAP,TD(1 - Tdap) due on 05/19/2007 SHINGRIX VACCINE(2 of 3) due on 06/19/2009 PNEUMOCOCCAL: 65+(2 - PCV) due on 05/05/2021 ADVANCE DIRECTIVE DISCUSSION Never done DEPRESSION ASSESSMENT Never done INFLUENZA(1) due on 09/09/2022 DIABETES SCREEN due on 05/03/2025 COLORECTAL CANCER SCREENING due on 06/25/2031 BONE DENSITY Completed Data reviewed Previous records, office notes ASSESSMENT/PLAN: 1. Generalized abdominal pain - ICD9: 789.07, ICD10: R10.84 (primary diagnosis) If ultrasounds negative except for her known cholecystitis and renal mass, will likely refer to general surgery for opinion on her gallbladder. - US ABDOMEN COMPLETE - US FEMALE PELVIS TRANSABD LTD - US FEMALE PELVIS TRANSVAG 2. Calculus of gallbladder without cholecystitis without obstruction - ICD9: 574.20, ICD10: K80.20 If ultrasounds negative except for her known cholecystitis and renal mass, will likely refer to general surgery for opinion on her gallbladder. - US ABDOMEN COMPLETE - US FEMALE PELVIS TRANSABD LTD - US FEMALE PELVIS TRANSVAG 3. Nausea - ICD9: 787.02, ICD10: R11.0 If ultrasounds negative except for her known cholecystitis and renal mass, will likely refer to general surgery for opinion on her gallbladder. - US ABDOMEN COMPLETE - US FEMALE PELVIS TRANSABD LTD - US FEMALE PELVIS TRANSVAG 4. Renal mass, right - ICD9: 593.9, ICD10: N28.89 If ultrasounds negative except for her known cholecystitis and renal mass, will likely refer to general surgery for opinion on her gallbladder. - US ABDOMEN COMPLETE - US FEMALE PELVIS TRANSABD LTD - US FEMALE PELVIS TRANSVAG Rick Leong APRN.WOMEN'S BASKETBALL COACH documented in this encounter [facility] 06-09-2022 History of Present illness Narrative Ortho Nurse - Established Patient Intake Room#: 3 Left hip pain of 5 at times, trouble walking, her socks twist, has been to a environmental management specialist and he cant find any problems, DANICA somewhere around 2014, last seen 05-17-18 for same issues, did attempt PT after her last visit Date: 06/09/2022 11:07 AM Patient: Letha Castro MR#: [id number] : 1940 Age: 81 y.o. Referring Physician: Self, Self Insurance: Payor: MEDICARE AETNA HMO OR PPO / Plan: MEDICARE A[employer] PPO / Product Type: *No Product type* / Chief Complaint Patient presents with Left Hip - Pain, Follow-up Visit Vitals Ht 1.6 m (5' 3) Wt 70.8 kg (156 lb) BMI 27.63 kg/m Pain Presence of Pain: complains of pain/discomfort Pain Location: hip, left Select Pain Scale: DVPRS (Defense and Veterans Pain Rating Scale) (Adult-Cognitively Intact) Pain Location: hip, left Select Pain Scale: DVPRS (Defense and Veterans Pain Rating Scale) (Adult-Cognitively Intact) Recent Labs No results found for: CRP No results found for: SEDRATE No results found for: WBC, WBCCOUNT, WBCFETAL, HGB, HCT, PLATELET, MCV History Past Medical History: Diagnosis Date Back pain Basal cell carcinoma Face and shoulder Drug therapy Prednisone use Easy bruising Joint pain Osteoarthritis Past Surgical History: Procedure Laterality Date HIP REPLACEMENT Left 2015 ARTHROPLASTY KNEE TOTAL Right 2011 KNEE REPLACEMENT Left 2010 APPENDECTOMY 1964 MALIGNANT SKIN LESION EXCISION Basal cell carcinoma SHOULDER REPLACEMENT Left Family History: Her family history includes Cancer in her sister; Heart Disease - Other in her father. Social History: Her reports that she has never smoked. She has never used smokeless tobacco. She reports that she does not drink alcohol and does not use drugs. Outpatient Medications Prior to Visit Medication Sig Dispense Refill Calcium Carbonate-Vit D-Min (CALTRATE PLUS PO) Cholecalciferol (VITAMIN D PO) ferrous sulfate 325 (65 Fe) MG tablet Take 1 tablet by mouth 3 times daily with meals. Magnesium Hydroxide (MAGNESIA PO) Take by mouth. Multiple Vitamin (MULTIVITAMIN) Tab Zinc Sulfate (ZINC 15 PO) Take by mouth. dexamethasone 4 MG/ML Solution injection 1 mL by Other route As directed for 18 doses. (1 cc 3 x a week at physical therapy via iontophoresis) for up to 18 doses. (Patient not taking: Reported on 10/10/2017) 30 mL 0 meloxicam 15 MG Tab tablet Take 1 tablet by mouth daily. With food (Patient not taking: Reported on 05/17/2018) 30 tablet 2 ASPIRIN 81 PO No facility-administered medications prior to visit. Current Outpatient Medications: Calcium Carbonate-Vit D-Min (CALTRATE PLUS PO), , Disp: , Rfl: Cholecalciferol (VITAMIN D PO), , Disp: , Rfl: ferrous sulfate 325 (65 Fe) MG tablet, Take 1 tablet by mouth 3 times daily with meals., Disp: , Rfl: Magnesium Hydroxide (MAGNESIA PO), Take by mouth., Disp: , Rfl: Multiple Vitamin (MULTIVITAMIN) Tab, , Disp: , Rfl: Zinc Sulfate (ZINC 15 PO), Take by mouth., Disp: , Rfl: dexamethasone 4 MG/ML Solution injection, 1 mL by Other route As directed for 18 doses. (1 cc 3 x a week at physical therapy via iontophoresis) for up to 18 doses. (Patient not taking: Reported on 10/10/2017), Disp: 30 mL, Rfl: 0 meloxicam 15 MG Tab tablet, Take 1 tablet by mouth daily. With food (Patient not taking: Reported on 05/17/2018), Disp: 30 tablet, Rfl: 2 Allergies: She is allergic to cephalexin, diclofenac, iodine, latex, levofloxacin, and penicillins. HPI: Patient is here today for evaluation of her operative hip. She is status post total hip arthroplasty in 2014 by myself. She was last seen in May,, diagnosed with external snapping hip. She states PCP ordered physical therapy. She reports her socks twist in her shoe after walking for any length of distance. The pain is not associated with numbness or tingling. Her pain is a 5/10 upon exam today. She is here today for evaluation and to determine treatment options. PHYSICAL EXAM: The bilateral lower extremities were evaluated. The operative lower extremity is soft, nontender with full and supple motion of the hip. Palpable tenderness over the greater trochanter and IT band tendon. Left knee ROM is 0-120, in varus alignment. Noted varus thrust with ambution. The contralateral extremity has full motion, normal stability, no tenderness. Bilateral lower extremities have normal neurovascular status. DIAGNOSTIC STUDIES/INTERPRETATION: Plain film radiographs reviewed. She has a total hip arthroplasty in good position and alignment. No positional changes. Since preoperative xray's, pelvis has rotated posteriorly. Left knee radiographs demonstrate previous TKA in place, large bone spur in the medial tibial plateau with radiolucency compared to old imaging in 2010, it may be unchanged. Center to medial mechanical axis as demonstrated by long standing films. IMPRESSION: 1.) Stable status post left total hip arthroplasty in 2014. 2.) Symptomatic trochanteric bursitis and IT band tendonitis vrs muscle tearing. 3.) History of left TKA - suspected periprosthetic fracture and loosening of left tibial plateau. 4.) History of fall. 5.) Spinal posterior tilt suggestive of back contribution. PLAN: I reviewed my findings with Letha. We discussed the diagnosis, radiographs, physical exam findings and treatment options together. We discussed her lateral tenderness vrs spinal tilt vrs suspected periprosthetic fracture and loosening of left tibial plateau. At this time, I will order a triple phase bone scan of the left knee to further evaluate for prosthetic loosening as well as a metal suppressed MRI of the left hip and pelvis to evaluate the integrity of the abductor muscle. She reports she has kidney cancer with treatment may take precedence. This in understandable but she states she will get the imaging studies done regardless. I will see her back pending bone scan and MRI. All questions were answered to her satisfaction. I have reviewed the findings of my clinical staff below and agree with their assessment. Ortho Nurse - Established Patient Intake Room#: 3 Left hip pain of 5 at times, trouble walking, her socks twist, has been to a environmental management specialist and he cant find any problems, DANICA somewhere around 2014, last seen 05-17-18 for same issues, did attempt PT after her last visit Date: 06/09/2022 11:07 AM Patient: Letha Castro MR#: [id number] : 1940 Age: 81 y.o. Referring Physician: Self, Self Insurance: Payor: MEDICARE AETNA HMO OR PPO / Plan: MEDICARE AET[employer] PPO / Product Type: *No Product type* / Chief Complaint Patient presents with Left Hip - Pain, Follow-up Visit Vitals Ht 1.6 m (5' 3) Wt 70.8 kg (156 lb) BMI 27.63 kg/m Pain Presence of Pain: complains of pain/discomfort Pain Location: hip, left Select Pain Scale: DVPRS (Defense and Veterans Pain Rating Scale) (Adult-Cognitively Intact) Pain Location: hip, left Select Pain Scale: DVPRS (Defense and Veterans Pain Rating Scale) (Adult-Cognitively Intact) Recent Labs No results found for: CRP No results found for: SEDRATE No results found for: WBC, WBCCOUNT, WBCFETAL, HGB, HCT, PLATELET, MCV History Past Medical History: Diagnosis Date Back pain Basal cell carcinoma Face and shoulder Drug therapy Prednisone use Easy bruising Joint pain Osteoarthritis Past Surgical History: Procedure Laterality Date HIP REPLACEMENT Left 2015 ARTHROPLASTY KNEE TOTAL Right 2011 KNEE REPLACEMENT Left 2010 APPENDECTOMY 1964 MALIGNANT SKIN LESION EXCISION Basal cell carcinoma SHOULDER REPLACEMENT Left Family History: Her family history includes Cancer in her sister; Heart Disease - Other in her father. Social History: Her reports that she has never smoked. She has never used smokeless tobacco. She reports that she does not drink alcohol and does not use drugs. Outpatient Medications Prior to Visit Medication Sig Dispense Refill Calcium Carbonate-Vit D-Min (CALTRATE PLUS PO) Cholecalciferol (VITAMIN D PO) ferrous sulfate 325 (65 Fe) MG tablet Take 1 tablet by mouth 3 times daily with meals. Magnesium Hydroxide (MAGNESIA PO) Take by mouth. Multiple Vitamin (MULTIVITAMIN) Tab Zinc Sulfate (ZINC 15 PO) Take by mouth. dexamethasone 4 MG/ML Solution injection 1 mL by Other route As directed for 18 doses. (1 cc 3 x a week at physical therapy via iontophoresis) for up to 18 doses. (Patient not taking: Reported on 10/10/2017) 30 mL 0 meloxicam 15 MG Tab tablet Take 1 tablet by mouth daily. With food (Patient not taking: Reported on 05/17/2018) 30 tablet 2 ASPIRIN 81 PO No facility-administered medications prior to visit. Current Outpatient Medications: Calcium Carbonate-Vit D-Min (CALTRATE PLUS PO), , Disp: , Rfl: Cholecalciferol (VITAMIN D PO), , Disp: , Rfl: ferrous sulfate 325 (65 Fe) MG tablet, Take 1 tablet by mouth 3 times daily with meals., Disp: , Rfl: Magnesium Hydroxide (MAGNESIA PO), Take by mouth., Disp: , Rfl: Multiple Vitamin (MULTIVITAMIN) Tab, , Disp: , Rfl: Zinc Sulfate (ZINC 15 PO), Take by mouth., Disp: , Rfl: dexamethasone 4 MG/ML Solution injection, 1 mL by Other route As directed for 18 doses. (1 cc 3 x a week at physical therapy via iontophoresis) for up to 18 doses. (Patient not taking: Reported on 10/10/2017), Disp: 30 mL, Rfl: 0 meloxicam 15 MG Tab tablet, Take 1 tablet by mouth daily. With food (Patient not taking: Reported on 05/17/2018), Disp: 30 tablet, Rfl: 2 Allergies: She is allergic to cephalexin, diclofenac, iodine, latex, levofloxacin, and penicillins. documented in this encounter [facility] 06-08-2022 Miscellaneous Notes Noted, thank you. Rick Leong APRN.WOMEN'S BASKETBALL COACH Patient calling to request to make appt. Reports she continues with intermittent stomach discomfort. States saw Urology recently and they state her stomach discomfort is not coming from her kidney. Symptoms: -stomach pressure, constant-notices it less during day due to being active -notices it at night and repositioning helps it at times -some nausea on and off -taking protonix-wonders if needs increased -no diarrhea, vomiting, burping or sore throat -no fever or chills -has not taken any OTC medications Appt made with Rick Leong for 06/10. Rose Araujo RN documented in this encounter [facility] 06-02-2022 History of Present illness Narrative PATIENT: Letha Castro [id number] REFERRING MD: Jagjit Matias 06/02/[address] SMITH Chief Complaint Consult right renal mass Referral Consultation requested by Dr. Matias for an opinion regarding right renal mass. My final recommendations will be communicated back to the requesting physician by way of shared Medical record or letter to requesting physician via US mail. History of Present Illness Letha Castro is a very pleasant 81 year old female who presents with a history of right renal mass found on US due to right sided abdominal pain. CT Kidney revealed 3.3cm right renal mass. Denies flank pain. Denies gross hematuria. No family history of kidney cancer CT Kidney 05/17/22 IMPRESSION: 3.2 x 3.3 x 2.9 cm right renal mass, most likely renal cell carcinoma. Right kidney focal cortical scarring overlying a 1 cm stone in the lateral inferior pole. Bilateral subcentimeter renal cysts. Cholelithiasis. Hiatal hernia. Past Histories PAST MEDICAL HISTORY Diagnosis Date Arthritis Essential tremor History of transfusion Hyperlipidemia Iron deficiency Overweight (BMI 25.0-29.9) PMH - PAST MEDICAL HISTORY OF arthritis PMH - PAST MEDICAL HISTORY OF varicose veins PMH - PAST MEDICAL HISTORY OF mitral regurg PAST SURGICAL HISTORY Procedure Laterality Date APPENDECTOMY APPENDECTOMY HX ARTHRP ACETBLR/PROX FEM PROSTC AGRFT/ALGRFT 01/28/2014 left arthroplasty ARTHRP KNE CONDYLE&PLATU MEDIAL&LAT COMPARTMENTS 02/12/2009 Knee replacement, total left ARTHRP KNE CONDYLE&PLATU MEDIAL&LAT COMPARTMENTS 2010 Right knee COLONOSCOPY 06/24/2021 repeat in 10 years COLONOSCOPY FLX DX W/COLLJ SPEC WHEN PFRMD 2004 Colonoscopy COLONOSCOPY FLX DX W/COLLJ SPEC WHEN PFRMD 07/17/2014 Colonoscopy EGD W/O [facility] SPEC VARICIES INJ 06/24/2021 ESOPHAGOGASTRODUODENOSCOPY TRANSORAL DIAGNOSTIC 07/17/2014 EGD JOINT REPLACEMENT HX PAST SURGICAL HISTORY OF Bilateral 2005 VEIN STRIPPING PAST SURGICAL HISTORY OF 1999 heart cath PAST SURGICAL HISTORY OF 03/2020 colonoscopy and EGD SKIN BIOPSY HX VASCULAR SURGERY PROCEDURE Medications Current Outpatient Medications Medication Instructions aspirin, enteric coated (ASPIRIN, ENTERIC COATED) 81 mg, ORAL, DAILY aspirin, enteric coated (ECOTRIN LOW STRENGTH) 81 mg, ORAL, 2 TIMES DAILY CALCIUM CARB/VIT D2/MINERALS (CALTRATE PLUS ORAL) ORAL cholecalciferol, vitamin D3, (VITAMIN D3 ORAL) ORAL, DAILY docusate sodium (COLACE) 100 mg, ORAL, 2 TIMES DAILY, For constipation ferrous sulfate (IRON (FERROUS SULFATE)) 325 mg, ORAL, 2 TIMES DAILY W/MEALS pantoprazole DR (PROTONIX) 40 mg, ORAL, DAILY predniSONE (DELTASONE) 50 mg Take 1 tablet by mouth at 13 hours, 7 hours, and [address] dye infusion. THERAPEUTIC MULTIVITAMIN TAB Take one(1) tablet daily. Family History FAMILY HISTORY Problem Relation Age of Onset Lipids Mother other (parkinsons) Mother Prostate Cancer Father other (Tremors) Father Lipids Sister Coronary Artery Disease Sister Cabg x3 other (Brain bleed) Sister Lipids Sister Breast Cancer Sister Lipids Brother Coronary Artery Disease Brother CABG other (tremors) Brother Social History Social History Tobacco Use Smoking status: Never Smokeless tobacco: Never Vaping Use Vaping Use: Never used Substance Use Topics Alcohol use: No Drug use: No Allergies Allergies: Latex, Natural Rubb* Rash, Intolerance, Itching Cephalexin Diclofenac Iodine Rash Comment:During heart cath contrast dye Levaquin [Levofloxa* Rash Penicillins Rash Physical Exam Ht 154.9 cm (5' 1) Wt 71.7 kg (157 lb 15.4 oz) BMI 29.85 kg/m General: Alert, no acute distress, oriented Lungs: No respiratory distress or pursed lip breathing Psych: Affect and mood normal Abdomen: Estimated body mass index is 29.85 kg/m as calculated from the following: Height as of this encounter: 154.9 cm (5' 1). Weight as of this encounter: 71.7 kg (157 lb 15.4 oz). Labs and Pathology Creatinine (mg/dL) Date Value 05/03/2022 0.81 02/21/2022 0.85 07/13/2021 0.81 05/12/2021 1.29 01/29/2021 0.72 02/05/2020 0.96 11/01/2019 0.84 06/20/2018 0.65 06/04/2018 0.71 01/09/2018 0.69 01/11/2017 0.79 11/12/2016 0.79 05/02/2014 0.85 02/12/2013 0.68 Imaging: CT Kidney 05/17/22 IMPRESSION: 3.2 x 3.3 x 2.9 cm right renal mass, most likely renal cell carcinoma. Right kidney focal cortical scarring overlying a 1 cm stone in the lateral inferior pole. Bilateral subcentimeter renal cysts. Cholelithiasis. Hiatal hernia. Assessment: 1.)Right renal mass Plan: 1.)Recommend repeating CT kidney in 3 months to see if mass is stable or has increased in size. Discussed We had an extensive discussion about the significance of a localized, enhancing kidney masses/lesions. Evaluation of the literature demonstrates that approximately 80% of enhancing renal masses returned case inspector to be kidney cancer upon removal, while 20% are found to be benign. Although certain features such as size, gender and tumor characteristics can change these risks. Predominantly cystic masses tend to have a much lower risk of cancer than solid masses. We discussed the role of renal mass biopsy including the fact that renal mass biopsy is very safe with current techniques (risk of tumor seeding far below 1%). Though renal mass biopsy is usually quite accurate 90-95% of the time, it can be inaccurate and it can be non diagnostic. Furthermore, the majority of patients find they just need to proceed to surgery anyway. Renal mass biopsy can be very useful to determine a possible cancer recurrence (if there was a history of a previous) and if the surgical risks are high due to comorbidities or previous extensive surgery. We discussed the options for treatment of a localized kidney mass includin) active surveillance 2) thermal ablation 3) surgical extirpation Surgical extirpation has the best track record with a nearly 99% success rate for T1a lesions/masses compared to 90% success with thermal ablation and is generally preferred. Furthermore, thermal ablation is not optimal for larger masses (>3 cms) or centrally located masses. Active surveillance is also a reasonable option when life expectancy is less than 5-7 years for small renal masses. Furthermore, we discussed the relative merits of partial nephrectomy vs. radical nephrectomy and the theoretic basis behind maximal nephron preservation. There is some data suggesting there are senior care survival advantages and equivalent cancer control with nephron sparing surgery. We also discussed the advantages and disadvantages and roles of open surgery vs. laparoscopic (and [place] assisted) surgery. Patient has decided she would like to proceed with active surveillance Zora Hernandes APRN.WOMEN'S BASKETBALL COACH Scribed for Dr. Skylar Smith by edy White scribe on 06/02/2022 I agree with the Chief Complaint, ROS, and Past Histories independently gathered by the clinical developer support engineer including scribe and or medical student and or STEFANIE and or resident or fellow and the remaining scribed note accurately describes my personal service to the patient. Skylar Smith MD, MS [facility] documented in this encounter [facility] 05-25-2022 Miscellaneous Notes Detailed VM left on pt's identified voicemail of information below. Denise Queen LPN There are no concerns with her spleen on ultrasound from 05/11/2022 Please inform Jagjit Matias DO Pt called and received a letter dated 05/12/22. Per pt they mentioned her spleen. Pt asking you to look at the letter in Epic and make sure nothing has been missed. Pt has had testing and apt is set up. Advise pt. Denise Queen LPN documented in this encounter [facility] 05-19-2022 Miscellaneous Notes After passing this by Dr. Matias she asked this nurse call [facility] to see if there may be an opening for her to be seen sooner. Called [facility] they stated Dr. Skylar Smith handles this kind of surgery . He could see her on June 02 at 2:30pm. He is located at the [facility] .They are to use elevater Q take it to the 7th floor and check in there. Their phone number for any questions is [phone]. Called pt and is agreeable all information given. Called [facility] urology dept . They explained its a Dr. William Pendleton that does this type of surgery . His first available opening is June 13 at 11am in his [place] office. She can be seen after that 1st appt in [place]. This was just his earliest appt. Called pt left detailed message of this on her voicemail and our number to call back with any questions. Called patient and personally discussed her CT kidney results. She has concerns for right renal mass, RCC? She is aware of need to see urologist [facility] for biopsy and likely resection. She is willing and ready Please call urology dept and clarify whom she needs to see for appt CAREN Jagjit Matias DO Spoke with Dr. Matias and she will call patient herself this morning. Rick Leong APRN.CNP Pt calling for results of CT. She could see on MyChart the report. Please advise pt. Denise Queen LPN documented in this encounter [facility] 05-16-2022 Miscellaneous Notes Pt. informed. Elizabeth Watts LPN The following approved medication requests have been transmitted electronically. Requested Prescriptions Signed Prescriptions Disp Refills predniSONE (DELTASONE) 50 mg 3 tablet 0 Sig: Take 1 tablet by mouth at 13 hours, 7 hours, and [address] dye infusion. Authorizing Provider: JAGJIT MATIAS Ordering User: RICK LEONG diphenhydrAMINE HCL 50 mg tablet 1 tablet 0 Sig: Take 1 tablet by mouth one time only for 1 dose. [address] dye infusion. Authorizing Provider: JAGJIT MATIAS Ordering User: RICK LEONG APRN.CNP Pt. is scheduled for CT scan Pt. is allergic to Iodine needs pre medicated. Please place orders. documented in this encounter [facility] 05-14-2022 Miscellaneous Notes Patient has been scheduled for a CT scan on May 17 @ 2:[address] order placed, please assist her to schedule. Rick Leong APRN.CNP Patient returned call and given provider's message below with verbalized understanding. Patient agreeable to have CT scan, please place order and call her to schedule. Contacted pt and spouse answered. Pt unavailable at this time and will contact office for results. Vandana Valverde Please inform patient that her RUQ US showed IMPRESSION: 1. Isoechoic structure in interpolar region the right kidney may represent a solid mass. This could be further evaluated by dedicated CT scan of the kidneys. 2. Cholelithiasis. No biliary dilatation We can either have her do the CT scan of the kidney to further check or have her see the Urologist for further evaluation Jagjit Matias DO documented in this encounter [facility] 05-06-2022 Miscellaneous Notes Patient updated of provider's message below. Pt states she has no pain anywhere and no changes in urination habits. Encouraged to drink fluids and call if experiences any back pain, flank pain, urination changes or if having any other symptoms so provider can advise. No call back needed to pt unless provider has further advise. Thank you. Please let patient know that her xray shows a possible kidney stone in her right kidney. Is she having any back/clank pain or changes in urination habits? documented in this encounter [facility] 05-05-2022 Miscellaneous Notes Patient notified and verbalized understanding Nikky Ogden Cma Please let patient know that overall her labs are within normal limits for her. documented in this encounter [facility] 05-03-2022 Instructions Ria Gunter APRN.CNP - 05/03/2022 11:19 AM EST Complete lab work Complete xray Schedule ultrasound Follow up as directed upon results of lab and imaging documented in this encounter [facility] 05-03-2022 History of Present illness Narrative Chief Complaint Patient presents with: Abdominal Pain HPI Letha Castro is a 81 year old female who presents here today for Above Complaints.. Patient presents with abdominal discomfort. Patient reports that it is mild to moderate abdominal pain and cramping. Patient reported that 10 days ago she vomited after eating a lot of sourdough bread. Patient states that it was only the one day and she has not vomited since then. Patient reports intermittent nausea. Patient denies diarrhea. Patient reports that she has had a change in her diet with increase in fattier foods. Patient reports that she takes protonix daily. Past medical history, appointments, medications, allergies reviewed. Previous Medical History PAST MEDICAL HISTORY Diagnosis Date Arthritis Essential tremor History of transfusion Hyperlipidemia Iron deficiency Overweight (BMI 25.0-29.9) PMH - PAST MEDICAL HISTORY OF arthritis PMH - PAST MEDICAL HISTORY OF varicose veins PMH - PAST MEDICAL HISTORY OF mitral regurg Previous Surgical History PAST SURGICAL HISTORY Procedure Laterality Date APPENDECTOMY APPENDECTOMY HX ARTHRP ACETBLR/PROX FEM PROSTC AGRFT/ALGRFT 01/28/2014 left arthroplasty ARTHRP KNE CONDYLE&PLATU MEDIAL&LAT COMPARTMENTS 02/12/2009 Knee replacement, total left ARTHRP KNE CONDYLE&PLATU MEDIAL&LAT COMPARTMENTS 2010 Right knee COLONOSCOPY 06/24/2021 repeat in 10 years COLONOSCOPY FLX DX W/COLLJ SPEC WHEN PFRMD 2004 Colonoscopy COLONOSCOPY FLX DX W/COLLJ SPEC WHEN PFRMD 07/17/2014 Colonoscopy EGD W/O BRSH SPEC VARICIES INJ 06/24/2021 ESOPHAGOGASTRODUODENOSCOPY TRANSORAL DIAGNOSTIC 07/17/2014 EGD JOINT REPLACEMENT HX PAST SURGICAL HISTORY OF Bilateral 2005 VEIN STRIPPING PAST SURGICAL HISTORY OF 1999 heart cath PAST SURGICAL HISTORY OF 03/2020 colonoscopy and EGD SKIN BIOPSY HX VASCULAR SURGERY PROCEDURE Family History FAMILY HISTORY Problem Relation Age of Onset Lipids Mother other (parkinsons) Mother Prostate Cancer Father other (Tremors) Father Lipids Sister Coronary Artery Disease Sister Cabg x3 other (Brain bleed) Sister Lipids Sister Breast Cancer Sister Lipids Brother Coronary Artery Disease Brother CABG other (tremors) Brother Patient Allergies ALLERGIES Allergen Reactions Latex, Natural Rubb* Rash, Intolerance, Itching Cephalexin Diclofenac Iodine Rash During heart cath contrast dye Levaquin [Levofloxa* Rash Penicillins Rash Current Medications Current Outpatient Medications on File Prior to Visit Medication Sig pantoprazole DR (PROTONIX) 40 mg tablet Take 1 tablet by mouth once daily. docusate sodium (COLACE) 100 mg capsule Take 1 capsule by mouth twice daily. For constipation ferrous sulfate (IRON, FERROUS SULFATE,) 325 mg (65 mg iron) tablet Take 1 tablet by mouth twice daily with meals. aspirin, enteric coated (ECOTRIN LOW STRENGTH) 81 mg EC tablet Take 1 tablet by mouth twice daily for 14 days. cholecalciferol, vitamin D3, (VITAMIN D3 ORAL) Take by mouth once daily. CALCIUM CARB/VIT D2/MINERALS (CALTRATE PLUS ORAL) Take by mouth. aspirin, enteric coated (ASPIRIN, ENTERIC COATED) 81 mg EC tablet Take 81 mg by mouth once daily. THERAPEUTIC MULTIVITAMIN TAB Take one(1) tablet daily. Current Facility-Administered Medications on File Prior to Visit Medication perflutren lipid microspheres 1.3 mL in NaCl (PF) 0.9% 10 mL injection (DEFINITY) sodium chloride 0.9 % (flush) 10 mL (BD POSIFLUSH) Social History Social History Tobacco Use Smoking status: Never Smokeless tobacco: Never Vaping Use Vaping Use: Never used Substance Use Topics Alcohol use: No Drug use: No Review of Symptoms REVIEW OF SYSTEMS SEE HPI EXAM: BP 138/80 Pulse 82 Resp 14 Wt 71.2 kg (157 lb) BMI 29.64 kg/m General Appearance: Well appearing, alert, in no acute distress, well-hydrated, well nourished.. Abdomen: Normal abdominal exam, Abdomen soft, non-tender. Bowel sounds normal. No masses, organomegaly. Health Maintenance List DTAP,TDAP,TD(1 - Tdap) due on 05/19/2007 SHINGRIX VACCINE(2 of 3) due on 06/19/2009 PNEUMOCOCCAL: 65+(2 - PCV) due on 05/05/2021 ADVANCE DIRECTIVE DISCUSSION Never done DEPRESSION ASSESSMENT Never done COVID-19 VACCINE(1) due on 05/11/2022 INFLUENZA(1) due on 09/09/2022 DIABETES SCREEN due on 02/21/2025 COLORECTAL CANCER SCREENING due on 06/25/2031 BONE DENSITY Completed ASSESSMENT/PLAN: 1. Right sided abdominal pain - ICD9: 789.09, ICD10: R10.9 Differential Diagnosis includes Gastritis, IBS, Gall bladder colic/cholelithiasis, and Diverticulitis - Labs of CBC with Diff and CMP - Work up with RUQ ultrasound - CBC + DIFF - COMP METABOLIC PANEL - XR ABDOMEN 1V SUPINE - US ABD RT UPPER QUADRANT Ria Gunter APRN.CNP documented in this encounter [facility] 02-23-2022 Miscellaneous Notes Patient's notified of results and provider recommendations Voices understanding. Zora Call RN Please call patient and let her know that lab work results look good! No acute concerns. Alkaline phosphatase (a liver enzyme) is slightly elevated as prior. We will continue to monitor this value routinely. Thank you, Kelsey Quispe APRN.CNP documented in this encounter [facility] 02-17-2022 Miscellaneous Notes Pt notified of such. Lab orders are placed. Please let her know. Thank you, Kelsey Quispe APRN.WOMEN'S BASKETBALL COACH Pt calling in stating at her last OV with the provider she was told there were lab orders placed. That she could walk in and get those whenever. I do see in the OV notes from 12/15 that labs were supposed to be redone. Please place orders for labs. Once orders placed and labs released. Please contact pt so she knows she's good to go get those done. Thank you! documented in this encounter [facility] 01-06-2022 Miscellaneous Notes Patient returned call and given provider's message below. Carloz Araujo RN Attempted to contact pt with no answer. Left message for patient to contact office for results Vandana Reynolds Ma Please inform patient that overall her ECHO is unchanged when compared to 2006, which is great. No new concerns Jagjit Matias DO Pt informed, verbalized understanding. Pt asking for echo results. Vandana Reynolds Ma Please let patient know that her mammogram shows no concern for malignancy/cancer. Recommend continuing to follow up yearly with screening mammogram. Rick Leong APRN.CNP documented in this encounter [facility] 01-05-2022 Miscellaneous Notes January 05, 2022 PID: [id number] Letha Castro [address] [place] [address] Dear Ms. Castro, We are pleased to inform you that the results of your recent breast imaging exam on 01/05/2022 are normal. Early detection of cancer is very important. We also understand recommendations regarding breast cancer screening are controversial. Please discuss with your primary care provider which strategy is best for you and whether a mammogram is right for you. Your imaging studies and report will be kept on file at [facility] as part of your permanent medical record and are available for your continuing care. Thank you for allowing us to help in meeting your health care needs. Sincerely, Dr. Partida Interpreting Radiologist [facility] (Normal over 40) documented in this encounter [facility] 01-05-2022 History of Present illness Narrative Radiology Service Progress Note PATIENT NAME: Letha Castro DATE OF SERVICE: January 05, 2022 TIME: 10:42 AM PATIENT IDENTITY VERIFICATION COMPLETED USING TWO (2) IDENTIFIERS: Name and Date of confirmed by patient verbally. FALL SCREENING: Has the patient had 2 falls in the last year or 1 fall with injury or currently using an Ambulatory Assistive Device (Walker, Cane, Wheelchair, Crutches, etc.)? No PATIENT GENDER DATA: Female. status: : No status: NO. PATIENT RELEVANT IMPLANT DATA REVIEWED: Not Applicable RADIOLOGY DEPARTMENT: Mammography PERIPHERAL IV DATA: Not applicable SIGNED BY: Lion Del Rio January 05, 2022 10:42 AM documented in this encounter [facility] 12-15-2021 History of Present illness Narrative CC: Letha Castro is a 81 year old female who presents to the office for follow up HPI: History of mitral regurgitations, hasn't had a recent ECHO, does have some fatigue symptoms and occasional shortness of breath, no chest pain or syncope symptoms. Iron deficiency anemia. Is taking iron supplements. Last labs in July, no obvious symptoms of bleeding. Tremor, long standing HTN, well controlled, taking medications as prescribed. Left hip soreness/discomfort. Long standing. Admits that she doesn't walk right and feels unbalanced. Has a history of hip arthritis and has had the left hip replaced in the past. Hasn't fallen but feels she is off balance. Doesn't usually have low back pain but sometimes difficulty getting up from sitting and especially difficulty if trying to get up off the floor. No bowel or bladder changes. No rashes PAST MEDICAL HISTORY Diagnosis Date Arthritis Essential tremor History of transfusion Hyperlipidemia Iron deficiency Overweight (BMI 25.0-29.9) PMH - PAST MEDICAL HISTORY OF arthritis PMH - PAST MEDICAL HISTORY OF varicose veins PMH - PAST MEDICAL HISTORY OF mitral regurg PAST SURGICAL HISTORY Procedure Laterality Date APPENDECTOMY APPENDECTOMY HX ARTHRP ACETBLR/PROX FEM PROSTC AGRFT/ALGRFT 01/28/2014 left arthroplasty ARTHRP KNE CONDYLE&PLATU MEDIAL&LAT COMPARTMENTS 02/12/2009 Knee replacement, total left ARTHRP KNE CONDYLE&PLATU MEDIAL&LAT COMPARTMENTS 2009 Right knee COLONOSCOPY 06/24/2021 repeat in 10 years COLONOSCOPY FLX DX W/COLLJ SPEC WHEN PFRMD 2004 Colonoscopy COLONOSCOPY FLX DX W/COLLJ SPEC WHEN PFRMD 07/17/2014 Colonoscopy EGD W/O [facility] SPEC VARICIES INJ 06/24/2021 ESOPHAGOGASTRODUODENOSCOPY TRANSORAL DIAGNOSTIC 07/17/2014 EGD JOINT REPLACEMENT HX PAST SURGICAL HISTORY OF Bilateral 2005 VEIN STRIPPING PAST SURGICAL HISTORY OF 1999 heart cath PAST SURGICAL HISTORY OF 03/2020 colonoscopy and EGD SKIN BIOPSY HX VASCULAR SURGERY PROCEDURE Social History: Social History Tobacco Use Smoking status: Never Smokeless tobacco: Never Vaping Use Vaping Use: Never used Substance Use Topics Alcohol use: No Drug use: No FAMILY HISTORY Problem Relation Age of Onset Lipids Mother other (parkinsons) Mother Prostate Cancer Father other (Tremors) Father Lipids Sister Coronary Artery Disease Sister Cabg x3 other (Brain bleed) Sister Lipids Sister Breast Cancer Sister Lipids Brother Coronary Artery Disease Brother CABG other (tremors) Brother Current Outpatient prescriptions: pantoprazole DR (PROTONIX) 40 mg tablet^Take 1 tablet by mouth once daily.^Disp: 90 tablet^Rfl: 1 ferrous sulfate (IRON, FERROUS SULFATE,) 325 mg (65 mg iron) tablet^Take 1 tablet by mouth twice daily with meals.^Disp: 60 tablet^Rfl: 2 aspirin, enteric coated (ECOTRIN LOW STRENGTH) 81 mg EC tablet^Take 1 tablet by mouth twice daily for 14 days.^Disp: 28 tablet^Rfl: 0 cholecalciferol, vitamin D3, (VITAMIN D3 ORAL)^Take by mouth once daily.^Disp: ^Rfl: CALCIUM CARB/VIT D2/MINERALS (CALTRATE PLUS ORAL)^Take by mouth.^Disp: ^Rfl: aspirin, enteric coated (ASPIRIN, ENTERIC COATED) 81 mg EC tablet^Take 81 mg by mouth once daily.^Disp: ^Rfl: THERAPEUTIC MULTIVITAMIN TAB^Take one(1) tablet daily.^Disp: ^Rfl: 0 docusate sodium (COLACE) 100 mg capsule^Take 1 capsule by mouth twice daily. For constipation^Disp: 60 capsule^Rfl: 2 Allergies: ALLERGIES Allergen Reactions Latex, Natural Rubb* Rash, Intolerance, Itching Cephalexin Diclofenac Iodine Rash During heart cath contrast dye Levaquin [Levofloxa* Rash Penicillins Rash ROS: See HPI PE: 12/15/21 1339 BP: 130/80 Pulse: 64 Resp: 16 Temp: 36.3 C (97.3 F) TempSrc: Left Tympanic Weight: 69.9 kg (154 lb) Height: 155 cm (5' 1.02) Gen: A&O, NAD, non-toxic appearing, Pleasant, cooperative HEENT: NT/AC, PERRLA, EOMs intact b/l, nares clear and patent b/l, pharynx without erythema, exudate or lesions. Uvula midline. Neck: supple, No cervical LAD, no thyromegaly, no carotid bruits CV: RRR, normal S1 and S2, no murmurs, no gallops, no rubs, Pulses 2+ and symmetric in UE and LE b/l Lungs: normal respiratory effort, CTA b/l, no wheezing or rhonchi or rales Abd: soft, NT, ND, +BS, no hepatosplenomegaly MS: reduced ROM left hip Reduced ROM lumbar spine Antalgic gait with limp favoring left side with lateral hip shift with ambulation and instability Neuro: CN II-XII intact b/l Skin: warm, dry, intact, No rashes or lesions on exposed skin. No edema, normal pulses Resting tremor present arms ASSESSMENT/PLAN: 1. Vitamin B12 deficiency - ICD9: 266.2, ICD10: E53.8 (primary diagnosis) Labs as ordered, recheck - CBC + DIFF - IRON + TIBC - FERRITIN BLD - VITAMIN B12 BLOOD 2. Other iron deficiency anemia - ICD9: 280.8, ICD10: D50.8 - labs as ordered, recheck - COMP METABOLIC PANEL - VITAMIN B12 BLOOD 3. Vitamin D deficiency - ICD9: 268.9, ICD10: E55.9 Labs as ordered, recheck - VITAMIN D 25 HYDROXY 4. Nonrheumatic mitral valve regurgitation - ICD9: 424.0, ICD10: I34.0 - check ECHO as ordered, history of. Last echo 2006 - ECHO - PERFLUTREN LIPID MICROSPHERES 1.1 MG/ML INJECTION IN NS 10 ML - SODIUM CHLORIDE 0.9 % (FLUSH) INJECTION SYRINGE 5. Left hip pain - ICD9: 719.45, ICD10: M25.552 - need for MRI hip as ordered, history of replacement years ago. Has an antalgic gait and limp present - MRI HIP WO IVCON LT 6. Antalgic gait - ICD9: 781.2, ICD10: R26.89 - need for MRI hip as ordered, history of replacement years ago. Has an antalgic gait and limp present - MRI HIP WO IVCON LT 7. History of hip replacement, total, left - ICD9: V43.64, ICD10: Z96.642 - need for MRI hip as ordered, history of replacement years ago. Has an antalgic gait and limp present - MRI HIP WO IVCON LT 8. Limping - ICD9: 781.2, ICD10: R26.89 - need for MRI hip as ordered, history of replacement years ago. Has an antalgic gait and limp present - MRI HIP WO IVCON LT 9. Fatigue, unspecified type - ICD9: 780.79, ICD10: R53.83 Multifactorial, labs as ordered. 10. Essential tremor - ICD9: 333.1, ICD10: G25.0 Benign, familial Jagjit Matias DO To ER if develops chest pain, shortness of breath, or severe worsening of symptoms. Discussed risks, benefits, alternatives, and potential side effects of medications. Patient expressed understanding and agreed with the plan. Jagjit Matias DO [address] [place] [address] documented in this encounter [facility] 07-14-2021 History of Present illness Narrative CC: Letha Castro is a 80 year old female who presents to the office for follow up HPI: Seen last in office on 05/11/21 Recently was at [facility] this past few days due to feeling of fatigue and lightheadedness, has a history of iron deficiency anemia. Has had c scope and EGD in the past few months for evaluation. She was found to be iron deficient and anemic again with hemoglobin at 6.7 grams. She was given 2 units of PRBCs and was restarted on increased twice a day iron supplement and Protonix 40 mg once a day in the AM, which she is taking. She was d/c home 2 days ago. She is still having fatigue symptoms as well as constipation- hasn't had a bowel movement since d/c home from [facility]. Denies any obvious bleeding per rectum at this time. No syncope symptoms. She is not taking ASA anymore since hospitalization. No other sites of bleeding. She has had repeat colonoscopy and EGD by Dr López in the last few months. Found only to have small area of gastric irritation/gastritis, no active bleeding. Was told to continue on her PPI daily Protonix 40 mg a day and has been holding her aspirin therapy. Overall she is feeling well. She is taking her iron supplement 1-2 times a day with meals as well. Denies any active bleeding or pallor or concerns for worsening fatigue symptoms. Left foot discomfort >right foot discomfort, Left hip pain and into buttock and outer thigh. Hx of left total joint replacement surgery years ago. No recent injuries or falls. She is wondering if it is the way she is walking. Admits to feeling she is walking in forward flexion. Has seen the PHYSICAL THERAPY without much improvement/relief of symptoms. PAST MEDICAL HISTORY Diagnosis Date Arthritis Essential tremor History of transfusion Hyperlipidemia Iron deficiency Overweight (BMI 25.0-29.9) PMH - PAST MEDICAL HISTORY OF arthritis PMH - PAST MEDICAL HISTORY OF varicose veins PMH - PAST MEDICAL HISTORY OF mitral regurg PAST SURGICAL HISTORY Procedure Laterality Date APPENDECTOMY APPENDECTOMY HX ARTHRP ACETBLR/PROX FEM PROSTC AGRFT/ALGRFT 01/28/2014 left arthroplasty ARTHRP KNE CONDYLE&PLATU MEDIAL&LAT COMPARTMENTS 02/12/2009 Knee replacement, total left ARTHRP KNE CONDYLE&PLATU MEDIAL&LAT COMPARTMENTS 2009 Right knee COLONOSCOPY 06/24/2021 COLONOSCOPY FLX DX W/COLLJ SPEC WHEN PFRMD 2004 Colonoscopy COLONOSCOPY FLX DX W/COLLJ SPEC WHEN PFRMD 07/17/2014 [facility] 06/24/2021 ESOPHAGOGASTRODUODENOSCOPY TRANSORAL DIAGNOSTIC 07/17/2014 EGD JOINT REPLACEMENT HX PAST SURGICAL HISTORY OF Bilateral 2005 VEIN STRIPPING PAST SURGICAL HISTORY OF 1999 heart cath PAST SURGICAL HISTORY OF 03/2020 colonoscopy and EGD SKIN BIOPSY HX VASCULAR SURGERY PROCEDURE Current Outpatient Medications Medication Sig pantoprazole DR (PROTONIX) 40 mg tablet Take 1 tablet by mouth once daily. docusate sodium (COLACE) 100 mg capsule Take 1 capsule by mouth twice daily. For constipation ferrous sulfate (IRON, FERROUS SULFATE,) 325 mg (65 mg iron) tablet Take 1 tablet by mouth twice daily with meals. aspirin, enteric coated (ECOTRIN LOW STRENGTH) 81 mg EC tablet Take 1 tablet by mouth twice daily for 14 days. cholecalciferol, vitamin D3, (VITAMIN D3 ORAL) Take by mouth once daily. CALCIUM CARB/VIT D2/MINERALS (CALTRATE PLUS ORAL) Take by mouth. aspirin, enteric coated (ASPIRIN, ENTERIC COATED) 81 mg EC tablet Take 81 mg by mouth once daily. THERAPEUTIC MULTIVITAMIN TAB Take one(1) tablet daily. No current facility-administered medications for this visit. ALLERGIES Allergen Reactions Latex, Natural Rubb* Rash, Intolerance, Itching Cephalexin Diclofenac Iodine Rash During heart cath contrast dye Levaquin [Levofloxa* Rash Penicillins Rash Social History Tobacco Use Smoking status: Never Smoker Smokeless tobacco: Never Used Vaping Use Vaping Use: Never used Substance Use Topics Alcohol use: No Drug use: No ROS: See HPI. PE: BP 116/60 Pulse 76 Temp (Src) 98 (Right Tympanic) Resp 16 Wt 151 lb (68.5kg) Gen: A&OX3, NAD, non-toxic appearing HEENT: PERRLA, EOMs intact b/l, nares without drainage, pharynx without erythema, exudate, lesions, or drainage. Uvula midline. Neck: No LAD, no thyromegaly, no meningismus. CV: RRR, no murmur Lungs: CTA b/l, no wheezing Skin: No rashes, lesions, or wounds on exposed skin. Abd: soft, NT, ND, normal BS, overweight No edema legs, normal peripheral pulses ASSESSMENT/PLAN: 1. Other iron deficiency anemia - ICD9: 280.8, ICD10: D50.8 (primary diagnosis) - recheck labs, continue Protonix indefinitely, currently continue to hold ASA until labs are returned to normal. - TSH BLD - CBC + DIFF - IRON + TIBC - FERRITIN BLD - URINALYSIS, WITH MICROSCOPIC 2. Vitamin B12 deficiency - ICD9: 266.2, ICD10: E53.8 - recheck labs, continue supplement - TSH BLD 3. VANDA (acute kidney injury) (HCC) - ICD9: 584.9, ICD10: N17.9 - recheck labs and UA, typically never with acute renal insufficiency, asymptomatic. - COMP METABOLIC PANEL - URINALYSIS, WITH MICROSCOPIC 4. Hyperglycemia - ICD9: 790.29, ICD10: R73.9 - see above, check a1c, no hx of diabetes. - HGB A1C 5. Foot pain, bilateral - ICD9: 729.5, ICD10: M79.671, M79.672 - referral to environmental management specialist for opinion, may benefit from orthodics or other recommendations - CONSULT TO PODIATRY 6. Left hip pain - ICD9: 719.45, ICD10: M25.552 - see above, hx of hip replacement, unsure if related to her lumbar DJD/DDD vs. Her gait/foot symptoms as well. - CONSULT TO ORTHOPAEDICS 7. History of hip replacement, total, left - ICD9: V43.64, ICD10: Z96.642 - see above - CONSULT TO ORTHOPAEDICS Jagjit Matias DO Return if no improvement. Follow up with Jagjit Matias DO. To ER if develops chest pain, shortness of breath Discussed risks, benefits, alternatives, and potential side effects of medications. Patient/Guardian expressed understanding and agreed with the plan. See patient instructions. Jagjit Matias DO [address] [place] [address] documented in this encounter [facility] 07-13-2021 Instructions Jagjit Matias DO - 07/13/2021 10:[address] Lewis or Dr. Adkins Legal Entity Controller documented in this encounter [facility] 07-06-2021 History of Present illness Narrative Subjective: Patient is status post an upper and lower endoscopy completed at [facility]. Biopsy of her stomach did not show any H. pylori organisms. Biopsy of her distal esophagus did show squamous and inflamed gastric cardia type mucosa with an ulcer. It was negative for intestinal metaplasia or dysplasia. There is no evidence of eosinophilic esophagitis. Dear: She was noted to have a serrated polyp which I removed. Patient not having any black stools she feels as if she is as strong as she has been in a while. Objective:Blood pressure 128/60, pulse 77, temperature 36.9 C (98.4 F), weight 69 kg (152 lb 3.2 oz), SpO2 97 %. Abdomen is soft and nontender Assessment:Blood in stool (primary encounter diagnosis) Gastrointestinal hemorrhage with melena Plan: At this point the patient will need to have another colonoscopy in 5 years. At that time we probably should repeat the upper scope to make sure the distal esophagus still looks good and there is no signs of any ulcerations. I have told her that if she develops black stools the first thing we should do is an upper scope on her to make sure her esophagus looks normal and determine whether or not she needs to increase her Protonix. I believe she should remain on her Protonix indefinitely so that she will have no further GI bleeds hopefully. documented in this encounter [facility] 06-15-2021 Miscellaneous Notes 06-24-2021 COLON ASC documented in this encounter [facility] 06-15-2021 History of Present illness Narrative Images from the original note were not included. HISTORY AND PHYSICAL Letha Castro 1940 REFERRING PHYSICIAN: Jagjit Matias DO CHIEF COMPLAINT: Consult (colonoscopy, bloody stool) HPI: The patient is a 80 year old female referred for endoscopy. Patient was recently admitted [facility] with a GI bleed. She received 2 units of blood had no further bleeding. She discontinued her aspirin subsequently her hemoglobin came back up above 7 and I did not do any interventions on her at that time at the hospital and I am seeing her back in the office to get her scheduled for an upper and lower endoscopy. Approximately a year and a half ago she underwent both an upper and lower endoscopy which did not reveal any signs of GI bleed. She represented to the emergency department where a bleeding scan was obtained which did not show any active bleeding. Patient has been feeling more bloated. In addition she has been having what she describes as a squeezing feeling in her abdomen. Particularly after she eats. She is taking iron and her stools are dark. PAST MEDICAL HISTORY PAST MEDICAL HISTORY Diagnosis Date Essential tremor Hyperlipidemia Iron deficiency Overweight (BMI 25.0-29.9) PMH - PAST MEDICAL HISTORY OF arthritis PMH - PAST MEDICAL HISTORY OF varicose veins PMH - PAST MEDICAL HISTORY OF mitral regurg PAST SURGICAL HISTORY PAST SURGICAL HISTORY Procedure Laterality Date APPENDECTOMY ARTHRP ACETBLR/PROX FEM PROSTC AGRFT/ALGRFT 01/28/2014 left arthroplasty ARTHRP KNE CONDYLE&PLATU MEDIAL&LAT COMPARTMENTS 02/12/2009 Knee replacement, total left ARTHRP KNE CONDYLE&PLATU MEDIAL&LAT COMPARTMENTS 2010 Right knee COLONOSCOPY FLX DX W/COLLJ SPEC WHEN PFRMD 2004 Colonoscopy COLONOSCOPY FLX DX W/COLLJ SPEC WHEN PFRMD 07/17/2014 Colonoscopy ESOPHAGOGASTRODUODENOSCOPY TRANSORAL DIAGNOSTIC 07/17/2014 EGD PAST SURGICAL HISTORY OF Bilateral 2005 VEIN STRIPPING PAST SURGICAL HISTORY OF 1999 heart cath PAST SURGICAL HISTORY OF 03/2020 colonoscopy and EGD CURRENT MEDICATIONS Current Outpatient Medications Medication Sig docusate sodium (COLACE) 100 mg capsule Take 1 capsule by mouth twice daily. For constipation pantoprazole DR (PROTONIX) 40 mg tablet Take 1 tablet by mouth once daily. ferrous sulfate (IRON, FERROUS SULFATE,) 325 mg (65 mg iron) tablet Take 1 tablet by mouth twice daily with meals. aspirin, enteric coated (ECOTRIN LOW STRENGTH) 81 mg EC tablet Take 1 tablet by mouth twice daily for 14 days. cholecalciferol, vitamin D3, (VITAMIN D3 ORAL) Take by mouth once daily. CALCIUM CARB/VIT D2/MINERALS (CALTRATE PLUS ORAL) Take by mouth. aspirin, enteric coated (ASPIRIN, ENTERIC COATED) 81 mg EC tablet Take 81 mg by mouth once daily. THERAPEUTIC MULTIVITAMIN TAB Take one(1) tablet daily. No current facility-administered medications for this visit. ALLERGIES: Latex, Natural Rubber; Cephalexin; Diclofenac; Iodine; Levaquin [Levofloxacin]; and Penicillins PERSONAL HISTORY: SOCIAL HISTORY Social History Tobacco Use Smoking status: Never Smoker Smokeless tobacco: Never Used Vaping Use Vaping Use: Never used Substance Use Topics Alcohol use: No Drug use: No FAMILY HISTORY: FAMILY HISTORY FAMILY HISTORY Problem Relation Age of Onset Lipids Mother other (parkinsons) Mother Prostate Cancer Father other (Tremors) Father Lipids Sister Coronary Artery Disease Sister Cabg x3 other (Brain bleed) Sister Lipids Sister Breast Cancer Sister Lipids Brother Coronary Artery Disease Brother CABG other (tremors) Brother REVIEW OF SYMPTOMS: The review of systems data was entered by the nurse and reviewed by ok Nursing Notes: Amelie Ovalle LPN 05/18/2021 9:12 AM Signed REVIEW OF SYSTEMS: General: The patient notes fatigue, denies weight loss, denies weight gain, denies feeling hot, and denies feelings of cold. Eyes: The patient denies glaucoma, denies eye injury/surgery, wears glasses or contacts. Ear/Nose/Throat: The patient denies allergies, denies hayfever, denies ear infections, and denies bloody noses. Cardiovascular: The patient denies chest pain, denies heart disease, denies high blood pressure,denies cardiac stent, denies prior heart attack, denies irregular heart beat, denies high cholesterol, denies poor circulation, denies heart failure, other cardiac issues, denies claudication, denies cold feet, denies peripheral arterial stent. Respiratory: The patient denies tuberculosis, denies pneumonia, denies frequent cough, denies pulmonary embolism, denies shortness of breath, and denies coughing up blood. Gastrointestinal: The patient denies difficulty swallowing, denies acid reflux, denies ulcers, denies vomiting, denies jaundice/hepatitis, denies gallbladder problems, notes black or tarry stools, denies hemorrhoids, notes bleeding from rectum, denies diverticulitis, denies constipation, denies diarrhea, denies loss of stool control, and denies hernias. Kidney/Bladder: The patient denies kidney stones, denies urine infections, and denies bloody urine. Skin: The patient notes a history of skin cancer, denies bleeding/changing moles, and denies a history of skin rash. Neurologic: The patient denies a history of epilepsy/convulsions, denies headaches, denies head/spinal injuries, and denies stroke/TIA. Psychiatric: The patient denies psychiatric medications, denies depression, and denies voices, denies substance abuse. Endocrine: The patient denies thyroid disorders, denies diabetes, and denies hormonal problems. Hematologic: The patient notes a history of bruising, denies bleeding, and notes anemia, denies blood clots. Infections: The patient denies a history of measles and mumps, denies rheumatic fever, and denies sexually transmitted diseases. Musculoskeletal: The patient denies back pain/injury, denies back problems, denies sciatica, notes knee/foot trouble, notes arthritis, or denies gout. When was patient's last Mammogram screening? 11/2020 Last Colonoscopy: 03/2020 Amelie Ovalle LPN PHYSICAL EXAMINATION: General: The patient is 80 year old female, well nourished, well hydrated in no acute distress. The patient is oriented to time, place, and person. VITALS: Blood pressure 130/82, pulse 85, temperature 37.1 C (98.7 F), height 157.5 cm (5' 2), weight 68.9 kg (151 lb 12.8 oz), SpO2 99 %. HEENT: Normal cephalic, ataumatic, pupils are equally round, sclera are anicteric, mucous membranes are moist, oropharynx is clear. Neck has no masses, asymmetry or lymphadenopathy. Thyroid is unremarkable. Respiratory: Clear to auscultation and percussion. Normal respiratory excursion and pattern. Cardiac: Examination is regular rate and rhythm. Abdominal exam: Soft, nontender, with no palpable masses. No hepatosplenomegaly. No palpable hernias. Rectal exam: exam deferred Extremities: no clubbing, cyanosis or edema. No adenopathy. Other: LABORATORY VALUES: As Noted RADIOLOGIC STUDIES: As Noted Assessment IMPRESSION: Gastrointestinal hemorrhage with melena (primary encounter diagnosis) PLAN: I plan to perform upper and lower endoscopy. We discussed the risks and benefits of the planned endoscopy. I have informed the patient that complications can occur including failure to complete the endoscopy and perforation. The patient had the opportunity to ask questions concerning the planned endoscopy. My staff has also explained the procedure to the patient in understandable terms and has given the patient printed material concerning the procedure. The patient freely consents to surgery. I plan to use golytely bowel preparation for endoscopy Diagnoses: (K92.1) Gastrointestinal hemorrhage with melena (primary encounter diagnosis) My findings have been communicated to Dr. Jagjit Matias DO via shared medical record. This note will be forwarded to Dr. Jagjit Matias DO. Return to Clinic: The patient is instructed to follow-up with me 1 week post operatively. COVID (Procedure Consent) Procedure Criteria Procedure Criteria: Yes Elective The surgeon/proceduralist and patient have discussed in detail the risk of exposure to and/or potential harm posed by the COVID-19 virus with having a surgery/procedure at this time versus the risk of delaying the surgery/procedure. It is not possible to know either the risk of delaying the surgery or procedure or chance of getting an infection with perfect accuracy, but a joint decision was made between the patient and the surgeon/proceduralist to proceed at this time with the scheduled surgery/procedure as indicated on the consent form. Justen López III, MD documented in this encounter [facility] 06-04-2021 Miscellaneous Notes The following approved medication requests have been transmitted electronically. Signed Prescriptions Disp Refills pantoprazole DR (PROTONIX) 40 mg tablet 90 tablet 1 Sig: Take 1 tablet by mouth once daily. CYNTHIA: No Authorizing Provider: JAGJIT MATIAS DO //Patient has been identified by name and date of : Yes Pending Prescriptions Disp Refills PANTOPRAZOLE 40 MG TABLET,DELAYED RELEASE 90 tablet 1 Sig: Take 1 tablet by mouth once daily. CYNTHIA: No Protonix 11/25/2020 qty 90 w /1 r/f RX INSTRUCTIONS: Taya Queen LPN Patient notified of results and provider's instructions. Patient states that she is feeling a little bit better. Patient has appointment on 06/[address] López and the after that they will schedule scope. Patient states that he told her that he will do upper and lower. Patient asking if labs will need to be checked prior to this? Patient is also requesting refill on Protonix. Please review and advise, Zora Call RN Please call to see how she is feeling. Hemoglobin is slightly improved at 8.8 but this is still low. Needs to follow up with the General surgeon as well. Jagjit Matias DO documented in this encounter [facility] 05-10-2021 Miscellaneous Notes Noted Jagjit L Matias, DO Phone call placed spoke to patient, reported currently in [facility] dx anemia, update labs drawn with hospital stay, reported infusion two liters blood, requested to keep 05/11/[address] Matias. Taya Queen LPN Please inform patient that labs are ordered for CBC and iron studies and CMP Jagjit Matias DO Patient calling said she has been having dark stools for past week, still formed, not bloody. Patient said she is taking iron once daily. Patient was asking for lab work orders? Patient said she has appt Monday with PCP. Aware PCP is not in office on Monday. Pending orders if wanted needs diagnosis. Please advise documented in this encounter [facility] 08-04-2020 History of Present illness Narrative Radiology Service Progress Note PATIENT NAME: Letha Castro DATE OF SERVICE: August 04, 2020 TIME: 9:43 AM PATIENT IDENTITY VERIFICATION COMPLETED USING TWO (2) IDENTIFIERS: Name and Date of confirmed by patient verbally. FALL SCREENING: Has the patient had 2 falls in the last year or 1 fall with injury or currently using an Ambulatory Assistive Device (Walker, Cane, Wheelchair, Crutches, etc.)? No PATIENT GENDER DATA: Female. status: : No status: NO. PATIENT RELEVANT IMPLANT DATA REVIEWED: Yes RADIOLOGY DEPARTMENT: General X-ray: Exam(s) Completed: Spine X-Ray(s): Lumbar AP / LAT / L5-S1 Pelvis X-Ray: Pelvis with Hip Bilateral PERIPHERAL IV DATA: Not applicable SIGNED BY: RT Monica(R) August 04, 2020 9:43 AM documented in this encounter [facility] 11-03-2014 History of Past i llness Narrative Problem Noted Date Resolved Date 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 Backache, unspecified 11/12/2013 04/28/2016 Sciatica 11/12/2013 04/28/2016 documented as of this encounter (statuses as of 06/08/2021) [facility] History of Past illness Narrative* Problem Noted Date Resolved Date 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 Backache, unspecified 11/12/2013 04/28/2016 Sciatica 11/12/2013 04/28/2016 documented as of this encounter (statuses as of 06/15/2021) [facility] History of Past illness Narrative* Problem Noted Date Resolved Date 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 Backache, unspecified 11/12/2013 04/28/2016 Sciatica 11/12/2013 04/28/2016 documented as of this encounter (statuses as of 06/16/2021) [address]24-2015 History of Past illness Narrative* Problem Noted Date Resolved Date 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 Backache, unspecified 11/12/2013 04/28/2016 Sciatica 11/12/2013 04/28/2016 documented as of this encounter (statuses as of 06/17/2021) [facility] History of Past illness Narrative* Problem Noted Date Resolved Date 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 Backache, unspecified 11/12/2013 04/28/2016 Sciatica 11/12/2013 04/28/2016 documented as of this encounter (statuses as of 07/06/2021) [address]24-2015 History of Past illness Narrative* Problem Noted Date Resolved Date 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 Backache, unspecified 11/12/2013 04/28/2016 Sciatica 11/12/2013 04/28/2016 documented as of this encounter (statuses as of 07/14/2021) [address]24-2015 History of Past illness Narrative* Problem Noted Date Resolved Date 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 Backache, unspecified 11/12/2013 04/28/2016 Sciatica 11/12/2013 04/28/2016 documented as of this encounter (statuses as of 12/13/2021) [address] History of Past illness Narrative* Problem Noted Date Resolved Date 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 Backache, unspecified 11/12/2013 04/28/2016 Sciatica 11/12/2013 04/28/2016 documented as of this encounter (statuses as of 12/16/2021) [address] History of Past illness Narrative* Problem Noted Date Resolved Date 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 Backache, unspecified 11/12/2013 04/28/2016 Sciatica 11/12/2013 04/28/2016 documented as of this encounter (statuses as of 01/06/2022) [address] History of Past illness Narrative* Problem Noted Date Resolved Date 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 Backache, unspecified 11/12/2013 04/28/2016 Sciatica 11/12/2013 04/28/2016 documented as of this encounter (statuses as of 01/07/2022) [address] History of Past illness Narrative* Problem Noted Date Resolved Date 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 Backache, unspecified 11/12/2013 04/28/2016 Sciatica 11/12/2013 04/28/2016 documented as of this encounter (statuses as of 02/17/2022) [address] History of Past illness Narrative* Problem Noted Date Resolved Date 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 Backache, unspecified 11/12/2013 04/28/2016 Sciatica 11/12/2013 04/28/2016 documented as of this encounter (statuses as of 02/23/2022) [address] History of Past illness Narrative* Problem Noted Date Resolved Date 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 Backache, unspecified 11/12/2013 04/28/2016 Sciatica 11/12/2013 04/28/2016 documented as of this encounter (statuses as of 05/03/2022) [address] History of Past illness Narrative* Problem Noted Date Resolved Date 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 Backache, unspecified 11/12/2013 04/28/2016 Sciatica 11/12/2013 04/28/2016 documented as of this encounter (statuses as of 05/05/2022) [address] History of Past illness Narrative* Problem Noted Date Resolved Date 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 Backache, unspecified 11/12/2013 04/28/2016 Sciatica 11/12/2013 04/28/2016 documented as of this encounter (statuses as of 05/06/2022) [address] History of Past illness Narrative* Problem Noted Date Resolved Date 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 Backache, unspecified 11/12/2013 04/28/2016 Sciatica 11/12/2013 04/28/2016 documented as of this encounter (statuses as of 05/14/2022) [address] History of Past illness Narrative* Problem Noted Date Resolved Date 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 Backache, unspecified 11/12/2013 04/28/2016 Sciatica 11/12/2013 04/28/2016 documented as of this encounter (statuses as of 05/16/2022) [address] History of Past illness Narrative* Problem Noted Date Resolved Date 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 Backache, unspecified 11/12/2013 04/28/2016 Sciatica 11/12/2013 04/28/2016 documented as of this encounter (statuses as of 05/23/2022) [address] History of Past illness Narrative* Problem Noted Date Resolved Date 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 Backache, unspecified 11/12/2013 04/28/2016 Sciatica 11/12/2013 04/28/2016 documented as of this encounter (statuses as of 05/25/2022) [address] History of Past illness Narrative* Problem Noted Date Resolved Date 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 Backache, unspecified 11/12/2013 04/28/2016 Sciatica 11/12/2013 04/28/2016 documented as of this encounter (statuses as of 06/06/2022) [address] History of Past illness Narrative* Problem Noted Date Resolved Date 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 Backache, unspecified 11/12/2013 04/28/2016 Sciatica 11/12/2013 04/28/2016 documented as of this encounter (statuses as of 06/08/2022) [address] History of Past illness Narrative* Problem Noted Date Resolved Date 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 Backache, unspecified 11/12/2013 04/28/2016 Sciatica 11/12/2013 04/28/2016 documented as of this encounter (statuses as of 06/09/2022) [address]2015 History of Past illness Narrative* Problem Noted Date Resolved Date 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 Backache, unspecified 11/12/2013 04/28/2016 Sciatica 11/12/2013 04/28/2016 documented as of this encounter (statuses as of 06/10/2022) [address]24-2015 History of Past illness Narrative* Problem Noted Date Resolved Date 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 Backache, unspecified 11/12/2013 04/28/2016 Sciatica 11/12/2013 04/28/2016 documented as of this encounter (statuses as of 06/13/2022) [address]2015 History of Past illness Narrative* Problem Noted Date Resolved Date 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 Backache, unspecified 11/12/2013 04/28/2016 Sciatica 11/12/2013 04/28/2016 documented as of this encounter (statuses as of 06/17/2022) [address]2015 History of Past illness Narrative* Problem Noted Date Resolved Date 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 Backache, unspecified 11/12/2013 04/28/2016 Sciatica 11/12/2013 04/28/2016 documented as of this encounter (statuses as of 06/22/2022) [address] History of Past illness Narrative* Problem Noted Date Resolved Date 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 Backache, unspecified 11/12/2013 04/28/2016 Sciatica 11/12/2013 04/28/2016 documented as of this encounter (statuses as of 06/30/2022) [address] History of Past illness Narrative* Problem Noted Date Resolved Date 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 Backache, unspecified 11/12/2013 04/28/2016 Sciatica 11/12/2013 04/28/2016 documented as of this encounter (statuses as of 06/30/2022) [address] History of Past illness Narrative* Problem Noted Date Resolved Date 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 Backache, unspecified 11/12/2013 04/28/2016 Sciatica 11/12/2013 04/28/2016 documented as of this encounter (statuses as of 07/04/2022) [address]2015 History of Past illness Narrative* Problem Noted Date Resolved Date 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 Backache, unspecified 11/12/2013 04/28/2016 Sciatica 11/12/2013 04/28/2016 documented as of this encounter (statuses as of 07/14/2022) [address]2015 History of Past illness Narrative* Problem Noted Date Resolved Date 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 Backache, unspecified 11/12/2013 04/28/2016 Sciatica 11/12/2013 04/28/2016 documented as of this encounter (statuses as of 08/06/2022) [address] History of Past illness Narrative* Problem Noted Date Resolved Date 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 Backache, unspecified 11/12/2013 04/28/2016 Sciatica 11/12/2013 04/28/2016 documented as of this encounter (statuses as of 09/13/2022) [address] History of Past illness Narrative* Problem Noted Date Diagnosed Date Resolved Date 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 12/09/2014 Backache, unspecified 11/12/20132016 Sciatica 11/12/2013 04/28/2016 documented as of this encounter (statuses as of 09/23/2022) [address]2015 History of Past illness Narrative* Problem Noted Date Diagnosed Date Resolved Date 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 12/09/2014 Backache, unspecified 11/12/20132016 Sciatica 11/12/2013 04/28/2016 documented as of this encounter (statuses as of 09/23/2022) [address] History of Past illness Narrative* Problem Noted Date Diagnosed Date Resolved Date 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 12/09/2014 Backache, unspecified 11/12/20132016 Sciatica 11/12/2013 04/28/2016 documented as of this encounter (statuses as of 09/27/2022) [place] [id number] History of Past illness Narrative* Problem Noted Date Diagnosed Date Resolved Date 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 12/09/2014 Backache, unspecified 11/12/20132016 Sciatica 11/12/2013 04/28/2016 documented as of this encounter (statuses as of 09/27/2022) [address]-2015 History of Past illness Narrative* Problem Noted Date Diagnosed Date Resolved Date 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 12/09/2014 Backache, unspecified 11/12/20132016 Sciatica 11/12/2013 04/28/2016 documented as of this encounter (statuses as of 09/27/2022) [address] History of Past illness Narrative* Problem Noted Date Diagnosed Date Resolved Date 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 12/09/2014 Backache, unspecified 11/12/20132016 Sciatica 11/12/2013 04/28/2016 documented as of this encounter (statuses as of 09/27/2022) [place] [id number] History of Past illness Narrative* Problem Noted Date Diagnosed Date Resolved Date 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 12/09/2014 Backache, unspecified 11/12/20132016 Sciatica 11/12/2013 04/28/2016 documented as of this encounter (statuses as of 09/28/2022) [address]-2015 History of Past illness Narrative* Problem Noted Date Diagnosed Date Resolved Date 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 12/09/2014 Backache, unspecified 11/12/20132016 Sciatica 11/12/2013 04/28/2016 documented as of this encounter (statuses as of 09/28/2022) [address]-2015 History of Past illness Narrative* Problem Noted Date Diagnosed Date Resolved Date 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 12/09/2014 Backache, unspecified 11/12/20132016 Sciatica 11/12/2013 04/28/2016 documented as of this encounter (statuses as of 09/29/2022) [address]-2015 History of Past illness Narrative* Problem Noted Date Diagnosed Date Resolved Date 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 12/09/2014 Backache, unspecified 11/12/20132016 Sciatica 11/12/2013 04/28/2016 documented as of this encounter (statuses as of 10/10/2022) [address]-2015 History of Past illness Narrative* Problem Noted Date Diagnosed Date Resolved Date 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 12/09/2014 Backache, unspecified 11/12/20132016 Sciatica 11/12/2013 04/28/2016 documented as of this encounter (statuses as of 10/24/2022) [address]-2015 History of Past illness Narrative* Problem Noted Date Diagnosed Date Resolved Date 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 12/09/2014 Backache, unspecified 11/12/20132016 Sciatica 11/12/2013 04/28/2016 documented as of this encounter (statuses as of 10/27/2022) [address]-2015 History of Past illness Narrative* Problem Noted Date Diagnosed Date Resolved Date 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 12/09/2014 Backache, unspecified 11/12/20132016 Sciatica 11/12/2013 04/28/2016 documented as of this encounter (statuses as of 11/02/2022) [address] History of Past illness Narrative* Problem Noted Date Diagnosed Date Resolved Date 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 12/09/2014 Backache, unspecified 11/12/20132016 Sciatica 11/12/2013 04/28/2016 documented as of this encounter (statuses as of 11/03/2022) [address]-2015 History of Past illness Narrative* Problem Noted Date Diagnosed Date Resolved Date 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 12/09/2014 Backache, unspecified 11/12/20132016 Sciatica 11/12/2013 04/28/2016 documented as of this encounter (statuses as of 11/05/2022) [address]2015 History of Past illness Narrative* Problem Noted Date Diagnosed Date Resolved Date 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 12/09/2014 Backache, unspecified 11/12/20132016 Sciatica 11/12/2013 04/28/2016 documented as of this encounter (statuses as of 01/15/2023) [address]-2015 History of Past illness Narrative* Problem Noted Date Diagnosed Date Resolved Date 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 12/09/2014 Backache, unspecified 11/12/20132016 Sciatica 11/12/2013 04/28/2016 documented as of this encounter (statuses as of 01/15/2023) [address]2015 History of Past illness Narrative* Problem Noted Date Diagnosed Date Resolved Date 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 12/09/2014 Backache, unspecified 11/12/20132016 Sciatica 11/12/2013 04/28/2016 documented as of this encounter (statuses as of 01/15/2023) [address]-2015 History of Past illness Narrative* Problem Noted Date Diagnosed Date Resolved Date 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 12/09/2014 Backache, unspecified 11/12/20132016 Sciatica 11/12/2013 04/28/2016 documented as of this encounter (statuses as of 02/14/2023) [address]2015 History of Past illness Narrative* Problem Noted Date Diagnosed Date Resolved Date 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 12/09/2014 Backache, unspecified 11/12/20132016 Sciatica 11/12/2013 04/28/2016 documented as of this encounter (statuses as of 02/16/2023) [address]2015 History of Past illness Narrative* Problem Noted Date Diagnosed Date Resolved Date 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 12/09/2014 Backache, unspecified 11/12/20132016 Sciatica 11/12/2013 04/28/2016 documented as of this encounter (statuses as of 04/21/2023) [address]2015 History of Past illness Narrative* Problem Noted Date Diagnosed Date Resolved Date 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 12/09/2014 Backache, unspecified 11/12/20132016 Sciatica 11/12/2013 04/28/2016 documented as of this encounter (statuses as of 04/27/2023) [address] History of Past illness Narrative* Problem Noted Date Diagnosed Date Resolved Date 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 12/09/2014 Backache, unspecified 11/12/20132016 Sciatica 11/12/2013 04/28/2016 documented as of this encounter (statuses as of 05/18/2023) [address] History of Past illness Narrative* Problem Noted Date Diagnosed Date Resolved Date 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 12/09/2014 Backache, unspecified 11/12/20132016 Sciatica 11/12/2013 04/28/2016 documented as of this encounter (statuses as of 05/30/2023) [address]2015 History of Past illness Narrative* Problem Noted Date Diagnosed Date Resolved Date 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 12/09/2014 Backache, unspecified 11/12/20132016 Sciatica 11/12/2013 04/28/2016 documented as of this encounter (statuses as of 05/30/2023) [facility] Diagnosis Other iron deficiency anemia- Primary [facility] Diagnosis Gastrointestinal hemorrhage with melena- Primary [facility] Diagnosis Blood in stool- Primary [facility] Diagnosis Blood in stool- Primary Gastrointestinal hemorrhage with melena [facility] Diagnosis Other iron deficiency anemia- Primary Vitamin B12 deficiency Other B-complex deficiencies VANDA (acute kidney injury) (HCC) Acute kidney failure, unspecified Hyperglycemia Other abnormal glucose Foot pain, bilateral Pain in limb Left hip pain Pain in joint, pelvic region and thigh History of hip replacement, total, left [facility] Diagnosis Visit for screening mammogram- Primary Other screening mammogram [facility] Diagnosis Vitamin B12 deficiency- Primary Other B-complex deficiencies Other iron deficiency anemia Vitamin D deficiency Unspecified vitamin D deficiency Nonrheumatic mitral valve regurgitation Left hip pain Pain in joint, pelvic region and thigh Antalgic gait Abnormality of gait History of hip replacement, total, left Limping Abnormality of gait Fatigue, unspecified type Essential tremor Essential and other specified forms of tremor [facility] Diagnosis Other iron deficiency anemia- Primary Vitamin B12 deficiency Other B-complex deficiencies Vitamin D deficiency Unspecified vitamin D deficiency Hyperglycemia Other abnormal glucose [facility] Diagnosis Right sided abdominal pain- Primary Abdominal pain, unspecified site [facility] Diagnosis Other specified disorders of kidney and ureter- Primary Renal mass Unspecified disorder of kidney and ureter Right sided abdominal pain Abdominal pain, unspecified site [facility] Diagnosis Renal mass, right- Primary Unspecified disorder of kidney and ureter [facility] Diagnosis Screening for genitourinary condition Screening for other and unspecified genitourinary condition [facility] Diagnosis Renal mass- Primary Unspecified disorder of kidney and ureter Renal mass Unspecified disorder of kidney and ureter [facility] Diagnosis Pain in prosthetic joint, sequela- Primary Left hip pain Pain in joint, pelvic region and thigh [facility] Diagnosis Generalized abdominal pain- Primary Abdominal pain, generalized Calculus of gallbladder without cholecystitis without obstruction Calculus of gallbladder without mention of cholecystitis or obstruction Nausea Nausea alone Renal mass, right Unspecified disorder of kidney and ureter Renal mass Unspecified disorder of kidney and ureter [facility] Diagnosis Renal mass- Primary Unspecified disorder of kidney and ureter Other specified disorders of kidney and ureter Renal mass Unspecified disorder of kidney and ureter [facility] Diagnosis Calculus of gallbladder without cholecystitis without obstruction- Primary Calculus of gallbladder without mention of cholecystitis or obstruction Generalized abdominal pain Abdominal pain, generalized Renal mass Unspecified disorder of kidney and ureter documented in this encounter [facility] note* Diagnosis Left hip pain Pain in joint, pelvic region and thigh Pain in prosthetic joint, sequela documented in this encounter [facility] note* Diagnosis Left hip pain Pain in joint, pelvic region and thigh Pain in prosthetic joint, sequela documented in this encounter [facility] note* Diagnosis Renal mass- Primary Unspecified disorder of kidney and ureter Pre-op testing Preoperative examination, unspecified Renal mass Unspecified disorder of kidney and ureter [facility]* Diagnosis Pre-op evaluation- Primary Preoperative examination, unspecified Essential tremor Essential and other specified forms of tremor Nonrheumatic mitral valve regurgitation Gastroesophageal reflux disease without esophagitis Esophageal reflux Renal mass Unspecified disorder of kidney and ureter [facility]* Diagnosis Screening for genitourinary condition Screening for other and unspecified genitourinary condition Renal mass Unspecified disorder of kidney and ureter [facility] Diagnosis Dermatitis contact- Primary Renal mass, right Unspecified disorder of kidney and ureter Generalized abdominal pain Abdominal pain, generalized Vitamin B12 deficiency Other B-complex deficiencies Other iron deficiency anemia Vitamin D deficiency Unspecified vitamin D deficiency Hyperglycemia Other abnormal glucose Dyslipidemia Other and unspecified hyperlipidemia [facility]* Diagnosis Renal cell carcinoma, unspecified laterality (HCC)- Primary [facility]* Diagnosis Bilateral hip pain- Primary Pain in joint, pelvic region and thigh documented in this encounter [facility] note* Diagnosis Leukocytosis, unspecified type- Primary Allergic reaction to dye, sequela Contrast media allergy Allergy to radiographic dye [facility]* Diagnosis Pancreatic lesion- Primary Unspecified disease of pancreas Contrast media allergy Allergy to radiographic dye documented in this encounter [facility] note* Diagnosis Leukocytosis, unspecified type documented in this encounter [facility] note* Diagnosis Leukocytosis, unspecified type- Primary documented in this encounter [facility] note* Diagnosis Other specified disorders of kidney and ureter- Primary documented in this encounter [facility] note* Diagnosis Renal mass, right- Primary Unspecified disorder of kidney and ureter Acquired cyst of kidney Other specified disorders of kidney and ureter Calculus of gallbladder without cholecystitis without obstruction Calculus of gallbladder without mention of cholecystitis or obstruction Leukocytosis, unspecified type Renal cell carcinoma, unspecified laterality (HCC) documented in this encounter [facility] note* Diagnosis Contrast media allergy Allergy to radiographic dye Pancreatic lesion Unspecified disease of pancreas documented in this encounter [facility] note* Diagnosis Leukocytosis, unspecified type Acquired cyst of kidney Other specified disorders of kidney and ureter Renal mass, right Unspecified disorder of kidney and ureter documented in this encounter [facility] note* Diagnosis Renal mass, right Unspecified disorder of kidney and ureter Generalized abdominal pain Abdominal pain, generalized Calculus of gallbladder without cholecystitis without obstruction Calculus of gallbladder without mention of cholecystitis or obstruction Nausea Nausea alone documented in this encounter [facility] note* Diagnosis Encounter for screening mammogram for malignant neoplasm of breast Other screening mammogram documented in this encounter [facility] note* Diagnosis Hyperglycemia- Primary Other abnormal glucose Dyslipidemia Other and unspecified hyperlipidemia Vitamin D deficiency Unspecified vitamin D deficiency Fatigue, unspecified type Iron deficiency anemia, unspecified iron deficiency anemia type Renal mass, right Unspecified disorder of kidney and ureter Tremors of nervous system Abnormal involuntary movements 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) documented in this encounter [facility] note* Diagnosis Renal mass, right- Primary Unspecified disorder of kidney and ureter [facility]* Diagnosis Contrast media allergy Allergy to radiographic dye Pancreatic lesion Unspecified disease of pancreas documented in this encounter [facility] note* Diagnosis Contrast media allergy- Primary Allergy to radiographic dye Pancreatic lesion Unspecified disease of pancreas Renal mass, right Unspecified disorder of kidney and ureter [facility] Diagnosis Renal mass, right Unspecified disorder of kidney and ureter 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) [facility] Diagnosis Renal mass, right Unspecified disorder of kidney and ureter 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) [facility] Diagnosis Encounter for follow-up surveillance of kidney cancer- Primary Unspecified follow-up examination History of renal cell cancer H/O partial nephrectomy Personal history of surgery to other organs [facility] Diagnosis Screening for genitourinary condition Screening for other and unspecified genitourinary condition [facility] Diagnosis Fatigue, unspecified type- Primary Vitamin D deficiency Unspecified vitamin D deficiency Dyslipidemia Other and unspecified hyperlipidemia Hyperglycemia Other abnormal glucose [facility] Diagnosis Orthostatic dizziness- Primary Dehydration [facility] Diagnosis Preop examination- Primary Preoperative examination, unspecified Glenohumeral arthritis, left Essential tremor Essential and other specified forms of tremor Other hyperlipidemia Right sided abdominal pain Abdominal pain, unspecified site Pre-op evaluation- Primary Preoperative examination, unspecified Essential tremor Essential and other specified forms of tremor Nonrheumatic mitral valve regurgitation Gastroesophageal reflux disease without esophagitis Esophageal reflux [facility] Diagnosis Preop examination- Primary Preoperative examination, unspecified Glenohumeral arthritis, left Essential tremor Essential and other specified forms of tremor Other hyperlipidemia Left hip pain Pain in joint, pelvic region and thigh Chronic left-sided low back pain with left-sided sciatica Pre-op evaluation- Primary Preoperative examination, unspecified Essential tremor Essential and other specified forms of tremor Nonrheumatic mitral valve regurgitation Gastroesophageal reflux disease without esophagitis Esophageal reflux [facility] Diagnosis Tear of gluteus medius tendon, unspecified laterality, subsequent encounter- Primary Gait disorder Abnormality of gait Fatigue, unspecified type Vitamin D deficiency Unspecified vitamin D deficiency Dyslipidemia Other and unspecified hyperlipidemia 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) Other iron deficiency anemia Vitamin B12 deficiency Other B-complex deficiencies IFG (impaired fasting glucose) Impaired fasting glucose [facility] Diagnosis Preop examination- Primary Preoperative examination, unspecified Glenohumeral arthritis, left Essential tremor Essential and other specified forms of tremor Other hyperlipidemia Pre-op evaluation- Primary Preoperative examination, unspecified Essential tremor Essential and other specified forms of tremor Nonrheumatic mitral valve regurgitation Gastroesophageal reflux disease without esophagitis Esophageal reflux Other iron deficiency anemia- Primary Dyslipidemia Other and unspecified hyperlipidemia Vitamin D deficiency Unspecified vitamin D deficiency Vitamin B 12 deficiency Other B-complex deficiencies Impaired fasting glucose [facility]* Diagnosis Preop examination- Primary Preoperative examination, unspecified Glenohumeral arthritis, left Essential tremor Essential and other specified forms of tremor Other hyperlipidemia Pre-op evaluation- Primary Preoperative examination, unspecified Essential tremor Essential and other specified forms of tremor Nonrheumatic mitral valve regurgitation Gastroesophageal reflux disease without esophagitis Esophageal reflux Impaired fasting glucose- Primary Encounter for screening mammogram for malignant neoplasm of breast Other screening mammogram Vitamin D deficiency Unspecified vitamin D deficiency Dyslipidemia Other and unspecified hyperlipidemia Other iron deficiency anemia Gait disorder Abnormality of gait 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) Vitamin B 12 deficiency Other B-complex deficiencies Nonrheumatic mitral valve regurgitation Essential tremor Essential and other specified forms of tremor documented [facility] this [facility] Diagnosis Preop examination- Primary Preoperative examination, unspecified Glenohumeral arthritis, left Essential tremor Essential and other specified forms of tremor Other hyperlipidemia Pre-op evaluation- Primary Preoperative examination, unspecified Essential tremor Essential and other specified forms of tremor Nonrheumatic mitral valve regurgitation Gastroesophageal reflux disease without esophagitis Esophageal reflux Encounter for screening mammogram for malignant neoplasm of breast Other screening mammogram [facility]* Diagnosis Preop examination- Primary Preoperative examination, unspecified Glenohumeral arthritis, left Essential tremor Essential and other specified forms of tremor Other hyperlipidemia Pre-op evaluation- Primary Preoperative examination, unspecified Essential tremor Essential and other specified forms of tremor Nonrheumatic mitral valve regurgitation Gastroesophageal reflux disease without esophagitis Esophageal reflux Abnormality of gait- Primary Tear of gluteus medius tendon, unspecified laterality, subsequent encounter Gait disorder Abnormality of gait Sprain, gluteus medius, unspecified laterality, subsequent encounter documented in this encounter [facility]* Diagnosis Preop examination- Primary Preoperative examination, unspecified Glenohumeral arthritis, left Essential tremor Essential and other specified forms of tremor Other hyperlipidemia Pre-op evaluation- Primary Preoperative examination, unspecified Essential tremor Essential and other specified forms of tremor Nonrheumatic mitral valve regurgitation Gastroesophageal reflux disease without esophagitis Esophageal reflux Abnormality of gait- Primary Sprain, gluteus medius, unspecified laterality, subsequent encounter documented in this encounter [facility]* Diagnosis Preop examination- Primary Preoperative examination, unspecified Glenohumeral arthritis, left Essential tremor Essential and other specified forms of tremor Other hyperlipidemia Pre-op evaluation- Primary Preoperative examination, unspecified Essential tremor Essential and other specified forms of tremor Nonrheumatic mitral valve regurgitation Gastroesophageal reflux disease without esophagitis Esophageal reflux Abnormality of gait- Primary Sprain, gluteus medius, unspecified laterality, subsequent encounter documented [facility] this encounter [facility]* Diagnosis Preop examination- Primary Preoperative examination, unspecified Glenohumeral arthritis, left Essential tremor Essential and other specified forms of tremor Other hyperlipidemia Pre-op evaluation- Primary Preoperative examination, unspecified Essential tremor Essential and other specified forms of tremor Nonrheumatic mitral valve regurgitation Gastroesophageal reflux disease without esophagitis Esophageal reflux Abnormality of gait- Primary Sprain, gluteus medius, unspecified laterality, subsequent encounter documented [facility] this encounter [facility]* Diagnosis Preop examination- Primary Preoperative examination, unspecified Glenohumeral arthritis, left Essential tremor Essential and other specified forms of tremor Other hyperlipidemia Pre-op evaluation- Primary Preoperative examination, unspecified Essential tremor Essential and other specified forms of tremor Nonrheumatic mitral valve regurgitation Gastroesophageal reflux disease without esophagitis Esophageal reflux Abnormality of gait- Primary Sprain, gluteus medius, unspecified laterality, subsequent encounter documented in this encounter [facility] note* Diagnosis Preop examination- Primary Preoperative examination, unspecified Glenohumeral arthritis, left Essential tremor Essential and other specified forms of tremor Other hyperlipidemia Pre-op evaluation- Primary Preoperative examination, unspecified Essential tremor Essential and other specified forms of tremor Nonrheumatic mitral valve regurgitation Gastroesophageal reflux disease without esophagitis Esophageal reflux History of renal cell cancer documented in this encounter [facility] note* Diagnosis Preop examination- Primary Preoperative examination, unspecified Glenohumeral arthritis, left Essential tremor Essential and other specified forms of tremor Other hyperlipidemia Pre-op evaluation- Primary Preoperative examination, unspecified Essential tremor Essential and other specified forms of tremor Nonrheumatic mitral valve regurgitation Gastroesophageal reflux disease without esophagitis Esophageal reflux History of renal cell cancer [facility]* Diagnosis Preop examination- Primary Preoperative examination, unspecified Glenohumeral arthritis, left Essential tremor Essential and other specified forms of tremor Other hyperlipidemia Pre-op evaluation- Primary Preoperative examination, unspecified Essential tremor Essential and other specified forms of tremor Nonrheumatic mitral valve regurgitation Gastroesophageal reflux disease without esophagitis Esophageal reflux Medicare annual wellness visit, subsequent- Primary Routine general medical examination at a health care facility Fatty liver Other chronic nonalcoholic liver disease Vitamin D deficiency Unspecified vitamin D deficiency Dyslipidemia Other and unspecified hyperlipidemia Other iron deficiency anemia Impaired fasting glucose Vitamin B 12 deficiency Other B-complex deficiencies documented in this encounter [facility]* Diagnosis Preop examination- Primary Preoperative examination, unspecified Glenohumeral arthritis, left Essential tremor Essential and other specified forms of tremor Other hyperlipidemia Pre-op evaluation- Primary Preoperative examination, unspecified Essential tremor Essential and other specified forms of tremor Nonrheumatic mitral valve regurgitation Gastroesophageal reflux disease without esophagitis Esophageal reflux Other specified disorders of kidney and ureter- Primary 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) documented in this encounter [facility] for referral (narrative)* Outpatient Procedure (Routine) - Authorized Specialty Diagnoses / Procedures Referred By Gabino walker Referred To Contact [facility] Diagnoses Blood in stool Procedures COLONOSCOPY DIAGNOSTIC COLONOSCOPY FLX DX W/COLLJ SPEC WHEN PFRMD Justen López MD [address] [place] [address] [facility] Disease [address] [address] Referral ID Status Reason Start Date Expiration Date Visits Requested Visits Authorized [id number] Authorized Auto-Generat ed Referral 06/16/2021 06/15/2022 1 1 * Outpatient Procedure (Routine) - Authorized Specialty Diagnoses / Procedures Referred By Gabino walker Referred To Contact [facility] Diagnoses Blood in stool Procedures EGD DIAGNOSTIC ESOPHAGOGASTRODUODENOSC OPY TRANSORAL DIAGNOSTIC Justen López MD [address] [place] [address] [facility] Disease [address] [address] Referral ID Status Reason Start Date Expiration Date Visits Requested Visits Authorized [id number] Authorized Auto-Generat ed Referral 06/16/2021 06/15/2022 1 1 [facility] for referral (narrative)* Diagnostic Procedure Only (Routine) - Pending Review Specialty Diagnoses / Procedures Referred By Contac t Referred To Contact [facility] Diagnoses Visit for screening mammogram Procedures MATT SCREENING SCREENING MAMMOGRAPHY BI 2-VIEW BREAST INC CAD Jagjit Matias DO [address] [id number] [facility] [address] [place] [address] Referral ID Status Reason Start Date Expiration Date Visits Requested Visits Authorized [id number] Pending Review Auto-Generat ed Referral 12/13/2021 01/12/2023 1 1 [facility] for referral (narrative)* Diagnostic Procedure Only (Routine) - Authorized Specialty Diagnoses / Procedures Referred By Contac t Referred To Contact US IMAGING Diagnoses Right sided abdominal pain Procedures US ABD RT UPPER QUADRANT US ABDOMINAL REAL TIME W/IMAGE LIMITED Ria Gunter APRN.CNP [address] [id number] [facility] Referral ID Status Reason Start Date Expiration Date Visits Requested Visits Authorized [id number] Authorized Auto-Generat ed Referral 05/03/2022 06/02/2023 1 1 * Diagnostic Procedure Only (Routine) - Closed Specialty Diagnoses / Procedures Referred By Contac t Referred To Contact XR IMAGING Diagnoses Generalized abdominal pain Right sided abdominal pain Procedures XR ABDOMEN 1V SUPINE RADIOLOGIC EXAM ABDOMEN 1 VIEW Ria Gunter APRN.CNP [address] [place] [address] Xr Imaging Referral ID Status Reason Start Date Expiration Date V isits Requested Visits Authorized [id number] Closed Auto-Generate d Referral 05/03/2022 06/02/2023 1 1 [facility] for referral (narrative)* Diagnostic Procedure Only (Urgent) - Authorized Specialty Diagnoses / Procedures Referred By Contac t Referred To Contact US IMAGING Diagnoses Renal mass, right Generalized abdominal pain Calculus of gallbladder without cholecystitis without obstruction Nausea Procedures US FEMALE PELVIS TRANSABD LTD US PELVIC NONOBSTETRIC IMAGE DCMTN LIMITED/F/U Rick Leong APRN.[employer] [address] [place] [address] Us Imaging Referral ID Status Reason Start Date Expiration Date Visits Requested Visits Authorized [id number] Authorized Auto-Generat ed Referral 06/10/2022 07/10/2023 1 1 * Diagnostic Procedure Only (Urgent) - Authorized Specialty Diagnoses / Procedures Referred By Contac t Referred To Contact US IMAGING Diagnoses Renal mass, right Generalized abdominal pain Calculus of gallbladder without cholecystitis without obstruction Nausea Procedures US FEMALE PELVIS TRANSVAG US TRANSVAGINAL Rick Leong APRN.[employer] [address] [place] [address] Us Imaging Referral ID Status Reason Start Date Expiration Date Visits Requested Visits Authorized [id number] Authorized Auto-Generat ed Referral 06/10/2022 07/10/2023 1 1 * Diagnostic Procedure Only (Urgent) - Authorized Specialty Diagnoses / Procedures Referred By Contac t Referred To Contact US IMAGING Diagnoses Renal mass, right Generalized abdominal pain Calculus of gallbladder without cholecystitis without obstruction Nausea Procedures US ABDOMEN COMPLETE US ABDOMINAL REAL TIME W/IMAGE DOCUMENTATION Rick Leong APRN.[employer] [address] [place] [address] Us Imaging Referral ID Status Reason Start Date Expiration Date Visits Requested Visits Authorized [id number] Authorized Auto-Generat ed Referral 06/10/2022 07/10/2023 1 1 [facility] for referral (narrative)* Diagnostic Procedure Only (Routine) - Authorized Specialty Diagnoses / Procedures Referred By Contac t Referred To Contact MOLECULAR & FUNCTIONAL IMAGING Diagnoses Calculus of gallbladder without cholecystitis without obstruction Procedures NM HEPATOBILIARY W EF AND/OR RX HEPATOBIL SYST IMAG INC GB W/PHARMA INTERVENJ Kelsey Mann APRN.[employer] [address] [place] [address] [facility] Functional [facility] [address] [place] [address] Referral ID Status Reason Start Date Expiration Date Visits Requested Visits Authorized [id number] Authorized Auto-Generat ed Referral 06/17/2022 07/17/2023 1 1 * Consult, Test, Treat (Routine) - Pending Review Specialty Diagnoses / Procedures Referred By Contac t Referred To Contact General Surgery Diagnoses Calculus of gallbladder without cholecystitis without obstruction Generalized abdominal pain Procedures CONSULT TO GENERAL SURGERY OFFICE/OUTPATIENT [facility] 60-74 MINUTES Kelsey Mann APRN.[employer] [address] [place] [address] Referral ID Status Reason Start Date Expiration Date Visits Requested Visits Authorized [id number] Pending Review PCP Requested Referral 06/17/2022 06/17/2023 1 1 [facility] for referral (narrative)* Consultation (Routine) - Patient to Arrange Specialty Diagnoses / Procedures Referred By Contac t Referred To Contact Physical Therapy Diagnoses Bilateral hip pain Frank Plata MD [address] [place] [address] Referral ID Status Reason Start Date Expiration Date V isits Requested Visits Authorized [id number] Patient to Arrange 08/11/2022 09/05/2023 1 1 Scheduling Instructions [facility] ([facility] Diagnostic Procedure Only (Urgent) - Closed Specialty Diagnoses / Procedures Referred By Contac t Referred To Contact US IMAGING Diagnoses Renal mass, right Generalized abdominal pain Calculus of gallbladder without cholecystitis without obstruction Nausea Procedures US ABDOMEN COMPLETE US ABDOMINAL REAL TIME W/IMAGE DOCUMENTATION Rick Leong APRN.[employer] [address] [place] [address] [place] [address] Referral ID Status Reason Start Date Expiration Date V isits Requested Visits Authorized [id number] Closed Auto-Generate d Referral 06/10/2022 07/10/2023 1 1 [facility] for referral (narrative)* Diagnostic Procedure Only (Routine) - Closed Specialty Diagnoses / Procedures [facility] XR [facility]AG[facility] Diagnoses Generalized abdominal pain Right sided abdominal pain Procedures XR ABDOMEN 1V SUPINE RADIOLOGIC EXAM ABDOMEN 1 VIEW Ria Gunter APRN.[employer] [address] [place] [address] [place] [address] Referral ID Status Reason Start Date Expiration Date V isits Requested Visits Authorized [id number] Closed Auto-Generate d Referral 05/03/2022 06/02/2023 1 1 [facility] for referral (narrative)* Diagnostic Procedure Only (Routine) - New Request Specialty Diagnoses / Procedures Referred By Contsebas t Referred To Contact BR [facility] Diagnoses Encounter for screening mammogram for malignant neoplasm of breast Procedures MATT SCREENING SCREENING MAMMOGRAPHY BI 2-VIEW BREAST INC Jagjit Villaseñor, DO [address] [place] [address] [facility] [address] [place] [address] Referral ID Status Reason Start Date Expiration Date Visits Requested Visits Authorized [id number] New Request Auto-Generat ed Referral 03/29/2024 04/28/2025 1 1 [facility] for visit Narrative* Diagnostic Procedure Only (Routine) - Closed Specialty Diagnoses / Procedures Referred By Contac t Referred To Contact [facility] Diagnoses Visit for screening mammogram Procedures MATT SCREENING SCREENING MAMMOGRAPHY BI 2-VIEW BREAST INC CAD Jagjit Matias, DO [address] [place] [address] [facility] [address] [place] [address] Referral ID Status Reason Start Date Expiration Date V isits Requested Visits Authorized [id number] Closed Auto-Generate d Referral 12/13/2021 01/12/2023 1 1 [facility] for visit Narrative* Diagnostic Procedure Only (Routine) - Closed Specialty Diagnoses / Procedures Referred By Gabino t Referred To Contact BR [facility] Diagnoses Encounter for screening mammogram for malignant neoplasm of breast Procedures MATT SCREENING SCREENING MAMMOGRAPHY BI 2-VIEW BREAST INC CAD Jagjit Matias, DO [address] [place] [address] [facility] [address] [place] [address] Referral ID Status Reason Start Date Expiration Date V isits Requested Visits Authorized [id number] Closed Auto-Generate d Referral 02/08/2023 03/08/2024 1 1 [facility] for visit Narrative* Diagnostic Procedure Only (Routine) - Closed Specialty Diagnoses / Procedures Referred By Contac t Referred To Contact XR IMAGING Diagnoses Generalized abdominal pain Right sided abdominal pain Procedures XR ABDOMEN 1V SUPINE RADIOLOGIC EXAM ABDOMEN 1 VIEW Ria Gunter, EDGARDO.[employer] [address] [place] [address] [place] [address] Referral ID Status Reason Start Date Expiration Date V isits Requested Visits Authorized [id number] Closed Auto-Generate d Referral 05/03/2022 06/02/2023 1 1 [facility] for visit Narrative* Diagnostic Procedure Only (Routine) - Closed Specialty Diagnoses / Procedures Referred By Contac t Referred To Contact [facility] Diagnoses Encounter for screening mammogram for malignant neoplasm of breast Procedures MATT SCREENING SCREENING MAMMOGRAPHY BI 2-VIEW BREAST INC CAD Florencio Jagjit L, DO [address] [place] [address] Phone: tel: fax: [facility] [address] [place] [phone] Referral ID Status Reason Start Date Expiration Date V isits Requested Visits Authorized [id number] Closed Auto-Generate d Referral 03/29/2024 04/28/2025 1 1 [facility] MRI/CT (Routine) - Closed Specialty Diagnoses / Procedures Referred By Gabino t Referred To Contact MR IMAGING Diagnoses History of renal cell cancer Procedures MRI ABDOMEN WO/W IVCON MRI ABDOMEN W/O & W/CONTRAST MATERIAL Edith Danielle APRN.[facility] [address] [place] [address] Phone: tel: fax: [place] [address] Referral ID Status Reason Start Date Expiration Date V isits Requested Visits Authorized [id number] Closed Auto-Generate d Referral 07/27/2023 08/25/2024 1 1 [facility] Summary Purpose Family History No Family History Records FoundNo Family History Records FoundNo Family History Records FoundNo Family History Records FoundNo Family History Records FoundNo Family History Records Found Advance Directives No Advanced Directives Records FoundDocuments on File Type Date Recorded 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 anation Advance Directive(s) 06/19/2018 9:47 AM Documents on File Type Date Recorded 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 anation Advance Directive(s) 06/19/2018 9:47 AM Documents on File Type Date Recorded 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 anation Advance Directive(s) 06/17/2021 10:50 AM Advance Directive(s) 06/19/2018 9:47 AM Documents on File Type Date Recorded 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 anation Advance Directive(s) 06/24/2021 11:53 AM Advance Directive(s) 06/17/2021 10:50 AM Advance Directive(s) 06/19/2018 9:47 AM Documents on File Type Date Recorded 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 anation Advance Directive(s) 06/24/2021 11:53 AM Advance Directive(s) 06/17/2021 10:50 AM Advance Directive(s) 06/19/2018 9:47 AM Reason for Referral Status Reason Specialty Diagnoses / Procedures Referred By Contact Referred To Contact New Request Diagnoses Hx of total hip arthroplasty, left Procedures XR HIP WITH PELVIS LEFT Frank Plata MD [address] [place] [address] Specialty Diagnoses / Procedures Referred By Contac t Referred To Contact Orthopedics Diagnoses Left hip pain History of hip replacement, total, left Procedures CONSULT TO ORTHOPAEDICS OFFICE/OUTPATIENT [facility] 60-74 MINUTES Jagjit Matias, DO [address] [place] [address] Referral ID Status Reason Start Date Expiration Date Visits Requested Visits Authorized [id number] Pending Review PCP Requested Referral 07/13/2021 07/13/2022 1 1 Specialty Diagnoses / Procedures Referred By Contac t Referred To Contact Podiatry Diagnoses Foot pain, bilateral Procedures CONSULT TO PODIATRY OFFICE/OUTPATIENT [facility] 60-74 MINUTES Jagjit Matias, DO [address] [place] [address] Referral ID Status Reason Start Date Expiration Date Visits Requested Visits Authorized [id number] Pending Review PCP Requested Referral 07/13/2021 07/13/2022 1 1 Specialty Diagnoses / Procedures Referred By Marleneac t Referred To Contact MR IMAGING Diagnoses Left hip pain Antalgic gait History of hip replacement, total, left Limping Procedures MRI HIP WO IVCON LT MRI ANY JT LOWER EXTREM W/O CONTRAST MATRL Jagjit Matias, DO [address] [place] [address] Mr Imaging Referral ID Status Reason Start Date Expiration Date Visits Requested Visits Authorized [id number] Pending Review Auto-Generat ed Referral 12/15/2021 01/14/2023 1 1 Specialty Diagnoses / Procedures Referred By Marleneac t Referred To Contact [facility] Diagnoses Nonrheumatic mitral valve regurgitation Procedures ECHO ECHO TTHRC R-T 2D W/WOM-MODE COMPL SPEC&COLR D Jagjit Matias, DO [address] [place] [address] [facility] [address] [place] [address] Referral ID Status Reason Start Date Expiration Date Visits Requested Visits Authorized [id number] Pending Review Auto-Generat ed Referral 12/15/2021 12/15/2022 1 1 Specialty Diagnoses / Procedures Referred By Contac t Referred To Contact CT IMAGING Diagnoses Other specified disorders of kidney and ureter Renal mass Right sided abdominal pain Procedures CT KIDNEY WO/W IVCON CT ABDOMEN W & W/O CONTRAST Jagjit Matias, DO [address] [place] [address] Ct Imaging Referral ID Status Reason Start Date Expiration Date Visits Requested Visits Authorized [id number] Authorized Auto-Generat ed Referral 05/13/2022 06/12/2023 1 1 Specialty Diagnoses / Procedures Referred By Contac t Referred To Contact Urology Diagnoses Renal mass, right Procedures CONSULT TO UROLOGY OFFICE/OUTPATIENT NEW HIGH MDM 60-74 MINUTES Jagjit Matias, DO [address] [place] [address] Referral ID Status Reason Start Date Expiration Date Visits Requested Visits Authorized [id number] Pending Review PCP Requested Referral 05/19/2022 05/19/2023 1 1 Specialty Diagnoses / Procedures Referred By Contac t Referred To Contact Diagnoses Renal mass Procedures REFER TO PACC - PRE ANESTHESIA CONSULTATION CLINIC OFFICE/OUTPATIENT NEW HIGH MDM 60-74 MINUTES Skylar Smith MD [address] [place] [address] Referral ID Status Reason Start Date Expiration Date Visits Requested Visits Authorized [id number] Pending Review PCP Requested Referral 06/09/2022 06/09/2023 1 1 Specialty Diagnoses / Procedures Referred By Contac t Referred [facility] Diagnoses Renal mass Procedures ECG COMPLETE ECG ROUTINE ECG W/LEAST 12 LDS W/I&R Skylar Smith MD [address] [place] [address] [facility] [address] [address] Referral ID Status Reason Start Date Expiration Date Visits Requested Visits Authorized [id number] Pending Review Auto-Generat ed Referral 06/09/2022 06/09/2023 1 1 Specialty Diagnoses / Procedures Referred By Contac t Referred To Contact Diagnoses Left hip pain Pain in prosthetic joint, sequela Procedures NUC 3 PHASE LIMITED BONE SCAN SD BONE IMAGING, 3 PHASE Frank Plata MD [address] [place] [address] Referral ID Status Reason Start Date Expiration Date V isits Requested Visits Authorized [id number] New Request 06/09/2022 07/04/2023 2 2 Specialty Diagnoses / Procedures Referred By Contac t Referred To Contact Diagnoses Left hip pain Pain in prosthetic joint, sequela Procedures MRI HIP LEFT WITHOUT CONTRAST SD MRI LOWER EXTREM JT, W/O CONTRAST Frank Plata MD [address] [place] [address] Referral ID Status Reason Start Date Expiration Date V isits Requested Visits Authorized [id number] New Request 06/09/2022 07/04/2023 1 1 Specialty Diagnoses / Procedures Referred By Contac t Referred To Contact Diagnoses Pain in prosthetic joint, sequela Procedures XR KNEE LEFT 3 VIEWS Frank Plata MD [address] [place] [address] Referral ID Status Reason Start Date Expiration Date V isits Requested Visits Authorized [id number] New Request 06/09/2022 07/04/2023 1 1 Specialty Diagnoses / Procedures Referred By Contac t Referred To Contact Diagnoses Pain in prosthetic joint, sequela Procedures XR BONE LENGTH STUDY Frank Plata MD [address] [place] [address] Referral ID Status Reason Start Date Expiration Date V isits Requested Visits Authorized [id number] New Request 06/09/2022 07/04/2023 1 1 Specialty Diagnoses / Procedures Referred By Contac t Referred To Contact Diagnoses Left hip pain Procedures XR HIP WITH PELVIS LEFT Frank Plata MD [address] [place] [id number] Referral ID Status Reason Start Date Expiration Date V isits Requested Visits Authorized [id number] Pending Review 06/03/2022 06/28/2023 1 1 Specialty Diagnoses / Procedures Referred By Contac t Referred To Contact CT IMAGING Diagnoses Other specified disorders of kidney and ureter Procedures CT KIDNEY WO/W IVCON CT ABDOMEN W & W/O CONTRAST Weight, MD Skylar [address] [place] [address] Ct Imaging Referral ID Status Reason Start Date Expiration Date Visits Requested Visits Authorized [id number] Pending Review Auto-Generat ed Referral 09/02/2022 07/02/2023 1 1 Specialty Diagnoses / Procedures Referred By Contac t Referred To Contact Magnetic Resonance Imaging Diagnoses Left hip pain Pain in prosthetic joint, sequela Procedures MRI HIP LEFT WITHOUT CONTRAST SD MRI LOWER EXTREM JT, W/O CONTRAST Frank Plata MD [address] [place], [place] [phone] [facility] [address] [place] [phone] Referral ID Status Reason Start Date Expiration Date Visits Re quested Visits Authorized [id number] Closed 06/09/2022 07/04/2023 1 1 Specialty Diagnoses / Procedures Referred By Contac t Referred To Contact Nuclear Medicine Diagnoses Left hip pain Pain in prosthetic joint, sequela Procedures NUC 3 PHASE LIMITED BONE SCAN SD BONE IMAGING, 3 PHASE Frank Plata MD [address] [place] [phone] [facility] [address] [place] [phone] Referral ID Status Reason Start Date Expiration Date Visits Re quested Visits Authorized [id number] Closed 06/09/2022 07/04/2023 2 2 Specialty Diagnoses / Procedures Referred By Contac t Referred To Contact CT IMAGING Diagnoses Renal cell carcinoma, unspecified laterality (HCC) Procedures CT ABDOMEN W IVCON CT ABDOMEN W/CONTRAST Weight, MD Skylar [address] [place] [address] Ct Imaging Referral ID Status Reason Start Date Expiration Date Visits Requested Visits Authorized [id number] Pending Review Auto-Generat ed Referral 07/22/2023 08/20/2023 1 1 Specialty Diagnoses / Procedures Referred By Contac t Referred To Contact CT IMAGING Diagnoses Leukocytosis, unspecified type Procedures CT ABD/PEL W IVCON CT ABD & PELVIS W/CONTRAST Skylar De Los Santos MD [address] [place] [address] Ct Imaging Referral ID Status Reason Start Date Expiration Date Visits Requested Visits Authorized [id number] Authorized Auto-Generat ed Referral 09/23/2022 10/23/2023 1 1 Specialty Diagnoses / Procedures Referred By Contac t Referred To Contact MR IMAGING Diagnoses Contrast media allergy Pancreatic lesion Procedures MRI PANC/SUSANA WO/W IVCON MRI ABDOMEN W/O & W/CONTRAST MATERIAL Miracle Acuña TAXATION INSPECTOR.WOMEN'S BASKETBALL COACH [address] [place] [address] Mr Imaging Referral ID Status Reason Start Date Expiration Date Visits Requested Visits Authorized [id number] Pending Review Auto-Generat ed Referral 09/26/2022 10/26/2023 1 1 Referral ID Status Reason Start Date Expiration Date V isits Requested Visits Authorized [id number] Closed Auto-Generate d Referral 09/23/2022 10/23/2023 1 1 Specialty Diagnoses / Procedures Referred By Contac t Referred To Contact CT IMAGING Diagnoses Other specified disorders of kidney and ureter Procedures CT KIDNEY WO/W IVCON CT ABDOMEN W & W/O CONTRAST Freddie Hua PA-C [address] [place] [address] Ct Imaging Referral ID Status Reason Start Date Expiration Date Visits Requested Visits Authorized [id number] Pending Review Auto-Generat ed Referral 10/10/2022 11/09/2023 1 1 Specialty Diagnoses / Procedures Referred By Contac t Referred To Contact CT IMAGING Diagnoses Leukocytosis, unspecified type Acquired cyst of kidney Other specified disorders of kidney and ureter Renal mass, right Procedures CT KIDNEY WO/W IVCON CT ABDOMEN W & W/O CONTRAST Rick Leong, TAXATION INSPECTOR.WOMEN'S BASKETBALL COACH [address] [place] [address] Ct Imaging Referral ID Status Reason Start Date Expiration Date Visits Requested Visits Authorized [id number] Authorized Auto-Generat ed Referral 10/21/2022 11/20/2023 1 1 Specialty Diagnoses / Procedures Referred By Contac t Referred To Contact MOLECULAR & FUNCTIONAL IMAGING Diagnoses Calculus of gallbladder without cholecystitis without obstruction Procedures NM HEPATOBILIARY W EF AND/OR RX HEPATOBIL SYST IMAG INC GB W/PHARMA INTERVENJ Rick Leong, TAXATION INSPECTOR.WOMEN'S BASKETBALL COACH [address] [place] [address] Molecular & Functional Imaging [address] [place], [place] [id number] Referral ID Status Reason Start Date Expiration Date Visits Requested Visits Authorized [id number] Authorized Auto-Generat ed Referral 10/21/2022 11/20/2023 1 1 Specialty Diagnoses / [facility] Diagnoses Leukocytosis, unspecified type Acquired cyst of kidney Other specified disorders of kidney and ureter Renal mass, right Procedures CT KIDNEY WO/W IVCON CT ABDOMEN W & W/O CONTRAST Rick Leong, TAXATION INSPECTOR.WOMEN'S BASKETBALL COACH [address] [place] [address] Ct Imaging [facility] Referral ID Status Reason Start Date Expiration Date V isits Requested Visits Authorized [id number] Closed Auto-Generate d Referral 10/21/2022 11/20/2023 1 1 Specialty Diagnoses / Procedures Referred By Contac t Referred To Contact CT IMAGING Diagnoses Renal mass, right 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) Procedures CT KIDNEY WO/W IVCON CT ABDOMEN W & W/O CONTRAST Jagjit Matias L, DO [address] [place] [address] [place] [address] Referral ID Status Reason Start Date Expiration Date Visits Requested Visits Authorized [id number] Pending Review Auto-Generat ed Referral 05/05/2023 06/03/2024 1 1 Specialty Diagnoses / Procedures Referred By Contac t Referred To Contact MR IMAGING Diagnoses History of renal cell cancer Procedures MRI ABDOMEN WO/W IVCON MRI ABDOMEN W/O & W/CONTRAST MATERIAL Edith Danielle APRN.WOMEN'S BASKETBALL COACH [address] [place] [address] Mr Imaging [facility] Referral ID Status Reason Start Date Expiration Date Visits Requested Visits Authorized [id number] Pending Review Auto-Generat ed Referral 07/27/2023 08/25/2024 1 1 Specialty Diagnoses / Procedures Referred By Contac t Referred To Contact [facility] Diagnoses Tear of gluteus medius tendon, unspecified laterality, subsequent encounter Gait disorder Procedures CONSULT TO PHYSICAL THERAPY PHYSICAL THERAPY EVALUATION HIGH COMPLEX 45 MINS Jagjit Matias, DO [address] [place] [address] [facility] [address] [place], [place] [id number] Referral ID Status Reason Start Date Expiration Date Visits Requested Visits Authorized [id number] Pending Review Auto-Generat ed Referral 08/21/2023 08/20/2024 1 1 History of Present Illness * Frank Plata MD - 05/17/2018 9:00 AM EST Dictation on: 05/17/2018 9:27 AM by: FRANK PLATA [[email or web address]] I have reviewed the findings of the clinical developer support engineer and agree with their assessment. Frank Plata MD Ortho Nurse Established Patient Intake Room#: 3 Patient states she was laying her granddaughter down into the crib while bending over she heard several loud popping sound that came from her hip area. Pt reports after this happen she beganto have pain in her left hip/leg pain is 4-6. Pt reports she is controlling pain with applying ice to this area which is helping. Date: 05/17/2018 8:58 AM Patient: Letha Castro MR#: [id number] : 1940 Age: 77 y.o. Referring Physician: Frank Plata MD Insurance: Payor: MEDICARE AETNA HMO OR PPO / Plan: MEDICARE A[employer] PPO / Product Type: *No Product type* / Chief Complaint Patient presents with Left Hip - Follow-up Visit Vitals Temp 98.7 F (37.1 C) Ht 1.6 m (5' 3) Wt 67.6 kg (149 lb) BMI 26.39 kg/m Presence of Pain: complains of pain/discomfort (05/17/18854) Pain Location: leg, left (05/17/18854) Select Pain Scale: DVPRS (Defense and Veterans Pain Rating Scale) (Adult- Cognitively Intact) (05/17/18854) Pain Location: leg, left (05/17/18854) Select Pain Scale: DVPRS (Defense and Veterans Pain Rating Scale) (Adult- Cognitively Intact) (05/17/18854) Recent Labs No results found for: CRP No results found for: SEDRATE No results found for: WBC, WBCCOUNT, WBCFETAL, HGB, HCT, PLATELET, MCV History Past Medical History: Diagnosis Date Back pain Basal cell carcinoma Face and shoulder Drug therapy Prednisone use Easy bruising Joint pain Osteoarthritis Past Surgical History: Procedure Laterality Date HIP REPLACEMENT Left 2015 ARTHROPLASTY KNEE TOTAL Right 2011 KNEE REPLACEMENT Left 2010 APPENDECTOMY 1964 MALIGNANT SKIN LESION EXCISION Basal cell carcinoma Family History: Her family history includes Cancer in her sister; Heart Disease - Other in her father. Social History: Her reports that she has never smoked. She has never used smokeless tobacco. She reports that she does not drink alcohol or use drugs. Outpatient Medications Prior to Visit Medication Sig Dispense Refill ASPIRIN 81 PO Calcium Carbonate-Vit D-Min (CALTRATE PLUS PO) Cholecalciferol (VITAMIN D PO) Multiple Vitamin (MULTIVITAMIN) Tab dexamethasone 4 MG/ML Solution injection 1 mL by Other route As directed for 18 doses. (1 cc 3 x a week at physical therapy via iontophoresis) for up to 18 doses. (Patient not taking: Reported on 10/10/2017 ) 30 mL 0 meloxicam 15 MG Tab tablet Take 1 tablet by mouth daily. With food (Patient not taking: Reported on05/17/2018) 30 tablet 2 No facility-administered medications prior to visit. Allergies: She is allergic to cephalexin; diclofenac; iodine; latex; levofloxacin; and penicillins. Procedures * Syeda Way LPN - 05/17/2018 9:00 AM EST Ortho Nurse Established Patient Intake Room#: 3 Patient states she was laying her granddaughter down into the crib while bending over she heard several loud popping sound that came from her hip area. Pt reports after this happen she beganto have pain in her left hip/leg pain is 4-6. Pt reports she is controlling pain with applying ice to this area which is helping. Date: 05/17/2018 8:58 AM Patient: Letha Castro MR#: [id number] : 1940 Age: 77 y.o. Referring Physician: Frank Plata MD Insurance: Payor: MEDICARE AETNA HMO OR PPO / Plan: MEDICARE [employer]izen.[employer] PPO / Product Type: *No Product type* / Chief Complaint Patient presents with Left Hip - Follow-up Visit Vitals Temp 98.7 F (37.1 C) Ht 1.6 m (5' 3) Wt 67.6 kg (149 lb) BMI 26.39 kg/m Presence of Pain: complains of pain/discomfort (05/17/18 0855) Pain Location: leg, left (05/17/18 0855) Select Pain Scale: DVPRS (Defense and Veterans Pain Rating Scale) (Adult- Cognitively Intact) (05/17/18 0855) Pain Location: leg, left (05/17/18 0855) Select Pain Scale: DVPRS (Defense and Veterans Pain Rating Scale) (Adult- Cognitively Intact) (05/17/18 0855) Recent Labs No results found for: CRP No results found for: SEDRATE No results found for: WBC, WBCCOUNT, WBCFETAL, HGB, HCT, PLATELET, MCV History Past Medical History: Diagnosis Date Back pain Basal cell carcinoma Face and shoulder Drug therapy Prednisone use Easy bruising Joint pain Osteoarthritis Past Surgical History: Procedure Laterality Date HIP REPLACEMENT Left 2015 ARTHROPLASTY KNEE TOTAL Right 2011 KNEE REPLACEMENT Left 2010 APPENDECTOMY 1964 MALIGNANT SKIN LESION EXCISION Basal cell carcinoma Family History: Her family history includes Cancer in her sister; Heart Disease - Other in her father. Social History: Her reports that she has never smoked. She has never used smokeless tobacco. She reports that she does not drink alcohol or use drugs. Outpatient Medications Prior to Visit Medication Sig Dispense Refill ASPIRIN 81 PO Calcium Carbonate-Vit D-Min (CALTRATE PLUS PO) Cholecalciferol (VITAMIN D PO) Multiple Vitamin (MULTIVITAMIN) Tab dexamethasone 4 MG/ML Solution injection 1 mL by Other route As directed for 18 doses. (1 cc 3 x a week at physical therapy via iontophoresis) for up to 18 doses. (Patient not taking: Reported on 10/10/2017 ) 30 mL 0 meloxicam 15 MG Tab tablet Take 1 tablet by mouth daily. With food (Patient not taking: Reported on05/17/2018) 30 tablet 2 No facility-administered medications prior to visit. Allergies: She is allergic to cephalexin; diclofenac; iodine; latex; levofloxacin; and penicillins. documented in this encounter Assessments Diagnosis Hx of total hip arthroplasty, left- Primary Hospital Course Note HNO ID: [id number] Author: Gemma Williamson Service: Orthopaedic Surgery Author Type: Physician Type: Discharge Summary Filed: 06/25/2018 12:54 PM Note Text: ORTHOPEDIC SURGERY DISCHARGE SUMMARY ADMISSION DATE: 06/19/2018 DISCHARGE DATE: 06/20/18 Attending Physician: Taylor Williamson MD Reason for Hospitalization: L Shoulder Glenohumeral arthritis, Admitting Diagnosis: L Shoulder Glenohumeral arthritis Discharge Diagnosis: L Shoulder Glenohumeral arthritis Additional Diagnoses: ACTIVE PROBLEM LIST 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 Additional Source Comments INFORMATION SOURCE (unrecogn ized section and content) DATE CREATED AUTHOR 10/10/2017 Gina Barber [facility] DATE CREATED AUTHOR AUTHOR'S ORGANIZ ATION 06/25/2018 [facility] DATE CREATED AUTHOR AUTHOR'S ORGANIZ ATION 08/22/2022 Gina Rodriguez [facility] DATE CREATED AUTHOR AUTHOR'S ORGANIZ ATION 09/27/2022 [facility] DATE CREATED AUTHOR AUTHOR'S ORGANIZ ATION 10/17/2024 [facility] DATE CREATED AUTHOR AUTHOR'S ORGANIZ ATION 10/19/2024 [facility] Reason for Visit (unrecogniz ed section and content) Reason Comments Physical Therapy PT Discharge Specialty Diagnoses / Procedures Referred By Contac t Referred To Contact [facility] Diagnoses Tear of gluteus medius tendon, unspecified laterality, subsequent encounter Gait disorder Procedures CONSULT TO PHYSICAL THERAPY PHYSICAL THERAPY EVALUATION HIGH COMPLEX 45 MINS Jagjit Matias, DO [address] [place] [address] Phone: tel: fax: [facility] [address] [place] [address] Referral ID Status Reason Start Date Expiration Date Visits Requested Visits Authorized [id number] Authorized Auto-Generat ed Referral 03/13/2024 03/12/2025 99 99 Reason Comments Follow-up Status Reason Specialty Diagnoses / Procedures Referred By Contact Referred To Contact New Request Diagnoses Hx of total hip arthroplasty, left Procedures XR HIP WITH PELVIS LEFT Frank Plata MD [address] [place] [id number] Reason Comments Patient Question Patient Update Reason Comments Consult colon & EGD Reason Comments 06-24-2021 COLON [facility] Reason Comments Results Reason Comments Follow Up review colonoscopy p athology Reason Comments Follow Up 2 months Reason Comments Medicare Wellness Exam Reason Comments Patient Question Orders Reason Comments Abdominal Pain Reason Comments Results Reason Comments New Medication Reason Comments Question Reason Comments Patient Update Reason Comments Pain Follow-up Specialty Diagnoses / Procedures Referred By Marleneac t Referred To Contact Diagnoses Left hip pain Procedures XR HIP WITH PELVIS LEFT Frank Plata MD [address] [place] [phone] Referral ID Status Reason Start Date Expiration Date V isits Requested Visits Authorized [id number] Pending Review 06/03/2022 06/28/2023 1 1 Reason Comments Abdominal Pain Nausea, RUQ US on 05/11 Reason Comments Message opened in error 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 Reason Comments New Patient Consult Renal Mass Reason Comments Results Appointment Specialty Diagnoses / Procedures Referred By Marleneac t Referred To Contact Magnetic Resonance Imaging Diagnoses Left hip pain Pain in prosthetic joint, sequela Procedures MRI HIP LEFT WITHOUT CONTRAST SD MRI LOWER EXTREM JT, W/O CONTRAST Frank Plata MD [address] [place] [phone] [facility] [address] [place] [phone] Referral ID Status Reason Start Date Expiration Date Visits Re quested Visits Authorized [id number] Closed 06/09/2022 07/04/2023 1 1 Specialty Diagnoses / Procedures Referred By Contac t Referred To Contact Nuclear Medicine Diagnoses Left hip pain Pain in prosthetic joint, sequela Procedures NUC 3 PHASE LIMITED BONE SCAN SD BONE IMAGING, 3 PHASE Frank Plata MD [address] [place], [place] [phone] [facility] [address] [place] [phone] Referral ID Status Reason Start Date Expiration Date Visits Re quested Visits Authorized [id number] Closed 06/09/2022 07/04/2023 2 2 Reason Comments Pre-Op Teaching Reason Comments Anesthesia Consult Reason Comments 6 Month Exam Reason Comments Post-Op Visit Reason Comments Pain Imaging Results MRI Results Reason Comments Fatigue Tremor Vomiting Specialty Diagnoses / Procedures Referred By Contac t Referred To Contact CT IMAGING Diagnoses Leukocytosis, unspecified type Procedures CT ABD/PEL W IVCON CT ABD & PELVIS W/CONTRAST Skylar De Los Santos MD [address] [place] [address] Ct Imaging Referral ID Status Reason Start Date Expiration Date V isits Requested Visits Authorized [id number] Closed Auto-Generate d Referral 09/23/2022 10/23/2023 1 1 Reason Comments Authorization on procedure Reason Comments fax lab results to [facility] for MRI monday Reason Comments CT appt Reason Comments Follow Up MRI abd, nausea and abd discomfort x 2.5 months Reason Comments Patient Question Reason Comments Medication request for CT Reason Comments Radiology CT Specialty Diagnoses / Procedures Referred By Contac t Referred To Contact CT IMAGING Diagnoses Leukocytosis, unspecified type Acquired cyst of kidney Other specified disorders of kidney and ureter Renal mass, right Procedures CT KIDNEY WO/W IVCON CT ABDOMEN W & W/O CONTRAST Rick Leong, EDGARDO.WOMEN'S BASKETBALL COACH [address] [place] [address] [place] [address] Referral ID Status Reason Start Date Expiration Date V isits Requested Visits Authorized [id number] Closed Auto-Generate d Referral 10/21/2022 11/20/2023 1 1 Reason Comments Radiology US Specialty Diagnoses / Procedures Referred By Contac t Referred To Contact US IMAGING Diagnoses Renal mass, right Generalized abdominal pain Calculus of gallbladder without cholecystitis without obstruction Nausea Procedures US ABDOMEN COMPLETE US ABDOMINAL REAL TIME W/IMAGE DOCUMENTATION Rick Leong, TAXATION INSPECTOR.WOMEN'S BASKETBALL COACH [address] [place] [address] [place] [address] Referral ID Status Reason Start Date Expiration Date V isits Requested Visits Authorized [id number] Closed Auto-Generate d Referral 06/10/2022 07/10/2023 1 1 Reason Comments Muscle Aches Reason Comments 6 Month Exam Reason Onset Date Comments Refill Request 05/30/[address] Specialty Diagnoses / Procedures Referred By Contac t Referred To Contact CT IMAGING Diagnoses Renal mass, right 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) Procedures CT KIDNEY WO/W IVCON CT ABDOMEN W & W/O CONTRAST Jagjit Matias, DO [address] [place] [address] [place] [address] Referral ID Status Reason Start Date Expiration Date V isits Requested Visits Authorized [id number] Closed Auto-Generate d Referral 05/05/2023 06/03/2024 1 1 Reason Comments Follow Up Reason Comments Problem with lab orders Reason Onset Date Comments Refill Request 09/28/2023 Reason Comments Dizziness X 3 weeks, worse wit h position changes, wondering if her iron is low Reason Comments F/U 3 Month Reason Comments Orders Reason Comments PT Eval Physical Therapy Reason Comments Physical Therapy Specialty Diagnoses / Procedures Referred By Contac t Referred To Contact [facility] Diagnoses Tear of gluteus medius tendon, unspecified laterality, subsequent encounter Gait disorder Procedures CONSULT TO PHYSICAL THERAPY PHYSICAL THERAPY EVALUATION HIGH COMPLEX 45 MINS Jagjit Matias, DO [address] [place] [address] Phone: tel: fax: [facility] [address] [place] [address] Referral ID Status Reason Start Date Expiration Date Visits Requested Visits Authorized [id number] Authorized Auto-Generat ed Referral 03/13/2024 03/12/2025 99 99 Source Comments (unrecognize d section and content) In the event this informatio n is protected by the Federal Confidentiality of Alcohol and Drug Abuse Patient Records regulations: The Federal rules restrict any use of the information to criminally investigate or prosecute any alcohol or drug abuse patient.[facility] the event this information is protected by the Federal Confidentiality of Alcohol and Drug Abuse Patient Records regulations: The Federal rules restrict any use of the information to criminally investigate or prosecute any alcohol or drug abuse patient.[facility] Campus[facility] the event this information is protected by the Federal Confidentiality of Alcohol and Drug Abuse Patient Records regulations: The Federal rules restrict any use of the information to criminally investigate or prosecute any alcohol or drug abuse patient.[facility] Campus[facility] the event this information is protected by the Federal Confidentiality of Alcohol and Drug Abuse Patient Records regulations: The Federal rules restrict any use of the information to criminally investigate or prosecute any alcohol or drug abuse patient.[facility] Campus[facility] the event this information is protected by the Federal Confidentiality of Alcohol and Drug Abuse Patient Records regulations: The Federal rules restrict any use of the information to criminally investigate or prosecute any alcohol or drug abuse patient.[facility] CampusIn the event this information is protected by the Federal Confidentiality of Alcohol and Drug Abuse Patient Records regulations: The Federal rules restrict any use of the information to criminally investigate or prosecute any alcohol or drug abuse patient.[facility] CampusIn the event this information is protected by the Federal Confidentiality of Alcohol and Drug Abuse Patient Records regulations: The Federal rules restrict any use of the information to criminally investigate or prosecute any alcohol or drug abuse patient.[facility] CampusIn the event this information is protected by the Federal Confidentiality of Alcohol and Drug Abuse Patient Records regulations: The Federal rules restrict any use of the information to criminally investigate or prosecute any alcohol or drug abuse patient.[facility] Campus[facility] the event this information is protected by the Federal Confidentiality of Alcohol and Drug Abuse Patient Records regulations: The Federal rules restrict any use of the information to criminally investigate or prosecute any alcohol or drug abuse patient.[facility] Campus[facility] the event this information is protected by the Federal Confidentiality of Alcohol and Drug Abuse Patient Records regulations: The Federal rules restrict any use of the information to criminally investigate or prosecute any alcohol or drug abuse patient.[facility] CampusIn the event this information is protected by the Federal Confidentiality of Alcohol and Drug Abuse Patient Records regulations: The Federal rules restrict any use of the information to criminally investigate or prosecute any alcohol or drug abuse patient.[facility] CampusIn the event this information is protected by the Federal Confidentiality of Alcohol and Drug Abuse Patient Records regulations: The Federal rules restrict any use of the information to criminally investigate or prosecute any alcohol or drug abuse patient.[facility] CampusIn the event this information is protected by the Federal Confidentiality of Alcohol and Drug Abuse Patient Records regulations: The Federal rules restrict any use of the information to criminally investigate or prosecute any alcohol or drug abuse patient.[facility] CampusIn the event this information is protected by the Federal Confidentiality of Alcohol and Drug Abuse Patient Records regulations: The Federal rules restrict any use of the information to criminally investigate or prosecute any alcohol or drug abuse patient.[facility] CampusIn the event this information is protected by the Federal Confidentiality of Alcohol and Drug Abuse Patient Records regulations: The Federal rules restrict any use of the information to criminally investigate or prosecute any alcohol or drug abuse patient.[facility] CampusIn the event this information is protected by the Federal Confidentiality of Alcohol and Drug Abuse Patient Records regulations: The Federal rules restrict any use of the information to criminally investigate or prosecute any alcohol or drug abuse patient.[facility] CampusIn the event this information is protected by the Federal Confidentiality of Alcohol and Drug Abuse Patient Records regulations: The Federal rules restrict any use of the information to criminally investigate or prosecute any alcohol or drug abuse patient.[facility] CampusIn the event this information is protected by the Federal Confidentiality of Alcohol and Drug Abuse Patient Records regulations: The Federal rules restrict any use of the information to criminally investigate or prosecute any alcohol or drug abuse patient.[facility] CampusIn the event this information is protected by the Federal Confidentiality of Alcohol and Drug Abuse Patient Records regulations: The Federal rules restrict any use of the information to criminally investigate or prosecute any alcohol or drug abuse patient.[facility] CampusIn the event this information is protected by the Federal Confidentiality of Alcohol and Drug Abuse Patient Records regulations: The Federal rules restrict any use of the information to criminally investigate or prosecute any alcohol or drug abuse patient.[facility] CampusIn the event this information is protected by the Federal Confidentiality of Alcohol and Drug Abuse Patient Records regulations: The Federal rules restrict any use of the information to criminally investigate or prosecute any alcohol or drug abuse patient.[facility] CampusIn the event this information is protected by the Federal Confidentiality of Alcohol and Drug Abuse Patient Records regulations: The Federal rules restrict any use of the information to criminally investigate or prosecute any alcohol or drug abuse patient.[facility] CampusIn the event this information is protected by the Federal Confidentiality of Alcohol and Drug Abuse Patient Records regulations: The Federal rules restrict any use of the information to criminally investigate or prosecute any alcohol or drug abuse patient.[facility] CampusIn the event this information is protected by the Federal Confidentiality of Alcohol and Drug Abuse Patient Records regulations: The Federal rules restrict any use of the information to criminally investigate or prosecute any alcohol or drug abuse patient.[facility] CampusIn the event this information is protected by the Federal Confidentiality of Alcohol and Drug Abuse Patient Records regulations: The Federal rules restrict any use of the information to criminally investigate or prosecute any alcohol or drug abuse patient.[facility] CampusIn the event this information is protected by the Federal Confidentiality of Alcohol and Drug Abuse Patient Records regulations: The Federal rules restrict any use of the information to criminally investigate or prosecute any alcohol or drug abuse patient.[facility] CampusIn the event this information is protected by the Federal Confidentiality of Alcohol and Drug Abuse Patient Records regulations: The Federal rules restrict any use of the information to criminally investigate or prosecute any alcohol or drug abuse patient.[facility] CampusIn the event this information is protected by the Federal Confidentiality of Alcohol and Drug Abuse Patient Records regulations: The Federal rules restrict any use of the information to criminally investigate or prosecute any alcohol or drug abuse patient.[facility] CampusIn the event this information is protected by the Federal Confidentiality of Alcohol and Drug Abuse Patient Records regulations: The Federal rules restrict any use of the information to criminally investigate or prosecute any alcohol or drug abuse patient.[facility] CampusIn the event this information is protected by the Federal Confidentiality of Alcohol and Drug Abuse Patient Records regulations: The Federal rules restrict any use of the information to criminally investigate or prosecute any alcohol or drug abuse patient.[facility] CampusIn the event this information is protected by the Federal Confidentiality of Alcohol and Drug Abuse Patient Records regulations: The Federal rules restrict any use of the information to criminally investigate or prosecute any alcohol or drug abuse patient.[facility] CampusIn the event this information is protected by the Federal Confidentiality of Alcohol and Drug Abuse Patient Records regulations: The Federal rules restrict any use of the information to criminally investigate or prosecute any alcohol or drug abuse patient.[facility] CampusIn the event this information is protected by the Federal Confidentiality of Alcohol and Drug Abuse Patient Records regulations: The Federal rules restrict any use of the information to criminally investigate or prosecute any alcohol or drug abuse patient.[facility] CampusIn the event this information is protected by the Federal Confidentiality of Alcohol and Drug Abuse Patient Records regulations: The Federal rules restrict any use of the information to criminally investigate or prosecute any alcohol or drug abuse patient.[facility] CampusIn the event this information is protected by the Federal Confidentiality of Alcohol and Drug Abuse Patient Records regulations: The Federal rules restrict any use of the information to criminally investigate or prosecute any alcohol or drug abuse patient.[facility] CampusIn the event this information is protected by the Federal Confidentiality of Alcohol and Drug Abuse Patient Records regulations: The Federal rules restrict any use of the information to criminally investigate or prosecute any alcohol or drug abuse patient.[facility] CampusIn the event this information is protected by the Federal Confidentiality of Alcohol and Drug Abuse Patient Records regulations: The Federal rules restrict any use of the information to criminally investigate or prosecute any alcohol or drug abuse patient.[facility] CampusIn the event this information is protected by the Federal Confidentiality of Alcohol and Drug Abuse Patient Records regulations: The Federal rules restrict any use of the information to criminally investigate or prosecute any alcohol or drug abuse patient.[facility] CampusIn the event this information is protected by the Federal Confidentiality of Alcohol and Drug Abuse Patient Records regulations: The Federal rules restrict any use of the information to criminally investigate or prosecute any alcohol or drug abuse patient.[facility] CampusIn the event this information is protected by the Federal Confidentiality of Alcohol and Drug Abuse Patient Records regulations: The Federal rules restrict any use of the information to criminally investigate or prosecute any alcohol or drug abuse patient.[facility] CampusIn the event this information is protected by the Federal Confidentiality of Alcohol and Drug Abuse Patient Records regulations: The Federal rules restrict any use of the information to criminally investigate or prosecute any alcohol or drug abuse patient.[facility] CampusIn the event this information is protected by the Federal Confidentiality of Alcohol and Drug Abuse Patient Records regulations: The Federal rules restrict any use of the information to criminally investigate or prosecute any alcohol or drug abuse patient.[facility] CampusIn the event this information is protected by the Federal Confidentiality of Alcohol and Drug Abuse Patient Records regulations: The Federal rules restrict any use of the information to criminally investigate or prosecute any alcohol or drug abuse patient.[facility] CampusIn the event this information is protected by the Federal Confidentiality of Alcohol and Drug Abuse Patient Records regulations: The Federal rules restrict any use of the information to criminally investigate or prosecute any alcohol or drug abuse patient.[facility] CampusIn the event this information is protected by the Federal Confidentiality of Alcohol and Drug Abuse Patient Records regulations: The Federal rules restrict any use of the information to criminally investigate or prosecute any alcohol or drug abuse patient.[facility] CampusIn the event this information is protected by the Federal Confidentiality of Alcohol and Drug Abuse Patient Records regulations: The Federal rules restrict any use of the information to criminally investigate or prosecute any alcohol or drug abuse patient.[facility] CampusIn the event this information is protected by the Federal Confidentiality of Alcohol and Drug Abuse Patient Records regulations: The Federal rules restrict any use of the information to criminally investigate or prosecute any alcohol or drug abuse patient.[facility] CampusIn the event this information is protected by the Federal Confidentiality of Alcohol and Drug Abuse Patient Records regulations: The Federal rules restrict any use of the information to criminally investigate or prosecute any alcohol or drug abuse patient.[facility] CampusIn the event this information is protected by the Federal Confidentiality of Alcohol and Drug Abuse Patient Records regulations: The Federal rules restrict any use of the information to criminally investigate or prosecute any alcohol or drug abuse patient.[facility] CampusIn the event this information is protected by the Federal Confidentiality of Alcohol and Drug Abuse Patient Records regulations: The Federal rules restrict any use of the information to criminally investigate or prosecute any alcohol or drug abuse patient.[facility] CampusIn the event this information is protected by the Federal Confidentiality of Alcohol and Drug Abuse Patient Records regulations: The Federal rules restrict any use of the information to criminally investigate or prosecute any alcohol or drug abuse patient.[facility] CampusIn the event this information is protected by the Federal Confidentiality of Alcohol and Drug Abuse Patient Records regulations: The Federal rules restrict any use of the information to criminally investigate or prosecute any alcohol or drug abuse patient.[facility] CampusIn the event this information is protected by the Federal Confidentiality of Alcohol and Drug Abuse Patient Records regulations: The Federal rules restrict any use of the information to criminally investigate or prosecute any alcohol or drug abuse patient.[facility] CampusIn the event this information is protected by the Federal Confidentiality of Alcohol and Drug Abuse Patient Records regulations: The Federal rules restrict any use of the information to criminally investigate or prosecute any alcohol or drug abuse patient.[facility] CampusIn the event this information is protected by the Federal Confidentiality of Alcohol and Drug Abuse Patient Records regulations: The Federal rules restrict any use of the information to criminally investigate or prosecute any alcohol or drug abuse patient.[facility] CampusIn the event this information is protected by the Federal Confidentiality of Alcohol and Drug Abuse Patient Records regulations: The Federal rules restrict any use of the information to criminally investigate or prosecute any alcohol or drug abuse patient.[facility] CampusIn the event this information is protected by the Federal Confidentiality of Alcohol and Drug Abuse Patient Records regulations: The Federal rules restrict any use of the information to criminally investigate or prosecute any alcohol or drug abuse patient.[facility] CampusIn the event this information is protected by the Federal Confidentiality of Alcohol and Drug Abuse Patient Records regulations: The Federal rules restrict any use of the information to criminally investigate or prosecute any alcohol or drug abuse patient.[facility] CampusIn the event this information is protected by the Federal Confidentiality of Alcohol and Drug Abuse Patient Records regulations: The Federal rules restrict any use of the information to criminally investigate or prosecute any alcohol or drug abuse patient.[facility] CampusIn the event this information is protected by the Federal Confidentiality of Alcohol and Drug Abuse Patient Records regulations: The Federal rules restrict any use of the information to criminally investigate or prosecute any alcohol or drug abuse patient.[facility] CampusIn the event this information is protected by the Federal Confidentiality of Alcohol and Drug Abuse Patient Records regulations: The Federal rules restrict any use of the information to criminally investigate or prosecute any alcohol or drug abuse patient.[facility] CampusIn the event this information is protected by the Federal Confidentiality of Alcohol and Drug Abuse Patient Records regulations: The Federal rules restrict any use of the information to criminally investigate or prosecute any alcohol or drug abuse patient.[facility] CampusIn the event this information is protected by the Federal Confidentiality of Alcohol and Drug Abuse Patient Records regulations: The Federal rules restrict any use of the information to criminally investigate or prosecute any alcohol or drug abuse patient.[facility] CampusIn the event this information is protected by the Federal Confidentiality of Alcohol and Drug Abuse Patient Records regulations: The Federal rules restrict any use of the information to criminally investigate or prosecute any alcohol or drug abuse patient.[facility] CampusIn the event this information is protected by the Federal Confidentiality of Alcohol and Drug Abuse Patient Records regulations: The Federal rules restrict any use of the information to criminally investigate or prosecute any alcohol or drug abuse patient.[facility] CampusIn the event this information is protected by the Federal Confidentiality of Alcohol and Drug Abuse Patient Records regulations: The Federal rules restrict any use of the information to criminally investigate or prosecute any alcohol or drug abuse patient.[facility] CampusIn the event this information is protected by the Federal Confidentiality of Alcohol and Drug Abuse Patient Records regulations: The Federal rules restrict any use of the information to criminally investigate or prosecute any alcohol or drug abuse patient.[facility] CampusIn the event this information is protected by the Federal Confidentiality of Alcohol and Drug Abuse Patient Records regulations: The Federal rules restrict any use of the information to criminally investigate or prosecute any alcohol or drug abuse patient.[facility] CampusIn the event this information is protected by the Federal Confidentiality of Alcohol and Drug Abuse Patient Records regulations: The Federal rules restrict any use of the information to criminally investigate or prosecute any alcohol or drug abuse patient.[facility] CampusIn the event this information is protected by the Federal Confidentiality of Alcohol and Drug Abuse Patient Records regulations: The Federal rules restrict any use of the information to criminally investigate or prosecute any alcohol or drug abuse patient.[facility] CampusIn the event this information is protected by the Federal Confidentiality of Alcohol and Drug Abuse Patient Records regulations: The Federal rules restrict any use of the information to criminally investigate or prosecute any alcohol or drug abuse patient.[facility] CampusIn the event this information is protected by the Federal Confidentiality of Alcohol and Drug Abuse Patient Records regulations: The Federal rules restrict any use of the information to criminally investigate or prosecute any alcohol or drug abuse patient.[facility] CampusIn the event this information is protected by the Federal Confidentiality of Alcohol and Drug Abuse Patient Records regulations: The Federal rules restrict any use of the information to criminally investigate or prosecute any alcohol or drug abuse patient.[facility] CampusIn the event this information is protected by the Federal Confidentiality of Alcohol and Drug Abuse Patient Records regulations: The Federal rules restrict any use of the information to criminally investigate or prosecute any alcohol or drug abuse patient.[facility] CampusIn the event this information is protected by the Federal Confidentiality of Alcohol and Drug Abuse Patient Records regulations: The Federal rules restrict any use of the information to criminally investigate or prosecute any alcohol or drug abuse patient.[facility] CampusIn the event this information is protected by the Federal Confidentiality of Alcohol and Drug Abuse Patient Records regulations: The Federal rules restrict any use of the information to criminally investigate or prosecute any alcohol or drug abuse patient.[facility] CampusIn the event this information is protected by the Federal Confidentiality of Alcohol and Drug Abuse Patient Records regulations: The Federal rules restrict any use of the information to criminally investigate or prosecute any alcohol or drug abuse patient.[facility] CampusIn the event this information is protected by the Federal Confidentiality of Alcohol and Drug Abuse Patient Records regulations: The Federal rules restrict any use of the information to criminally investigate or prosecute any alcohol or drug abuse patient.[facility] CampusIn the event this information is protected by the Federal Confidentiality of Alcohol and Drug Abuse Patient Records regulations: The Federal rules restrict any use of the information to criminally investigate or prosecute any alcohol or drug abuse patient.[facility] CampusIn the event this information is protected by the Federal Confidentiality of Alcohol and Drug Abuse Patient Records regulations: The Federal rules restrict any use of the information to criminally investigate or prosecute any alcohol or drug abuse patient.[facility] CampusIn the event this information is protected by the Federal Confidentiality of Alcohol and Drug Abuse Patient Records regulations: The Federal rules restrict any use of the information to criminally investigate or prosecute any alcohol or drug abuse patient.[facility] CampusIn the event this information is protected by the Federal Confidentiality of Alcohol and Drug Abuse Patient Records regulations: The Federal rules restrict any use of the information to criminally investigate or prosecute any alcohol or drug abuse patient.[facility] CampusIn the event this information is protected by the Federal Confidentiality of Alcohol and Drug Abuse Patient Records regulations: The Federal rules restrict any use of the information to criminally investigate or prosecute any alcohol or drug abuse patient.[facility] CampusIn the event this information is protected by the Federal Confidentiality of Alcohol and Drug Abuse Patient Records regulations: The Federal rules restrict any use of the information to criminally investigate or prosecute any alcohol or drug abuse patient.[facility] CampusIn the event this information is protected by the Federal Confidentiality of Alcohol and Drug Abuse Patient Records regulations: The Federal rules restrict any use of the information to criminally investigate or prosecute any alcohol or drug abuse patient.[facility] CampusIn the event this information is protected by the Federal Confidentiality of Alcohol and Drug Abuse Patient Records regulations: The Federal rules restrict any use of the information to criminally investigate or prosecute any alcohol or drug abuse patient.[facility] CampusIn the event this information is protected by the Federal Confidentiality of Alcohol and Drug Abuse Patient Records regulations: The Federal rules restrict any use of the information to criminally investigate or prosecute any alcohol or drug abuse patient.[facility] CampusIn the event this information is protected by the Federal Confidentiality of Alcohol and Drug Abuse Patient Records regulations: The Federal rules restrict any use of the information to criminally investigate or prosecute any alcohol or drug abuse patient.[facility] Care Teams (unrecognized sec tion and content) Inserter Promotional Item Relationship Specialty Start Date End Date Jagjit Matias, DO [address] [facility] [place] [address] PCP - General Family Practice 01/09/18 Inserter Promotional Item Relationship Specialty Start Date End Date Jagjit Matias, DO [address] [facility] [place] [address] PCP - General Family Practice 01/09/18 Inserter Promotional Item Relationship Specialty Start Date End Date Jagjit Matias, DO [address] [facility] [place] [address] PCP - General Family Practice 01/09/18 Inserter Promotional Item Relationship Specialty Start Date End Date Jagjit Matias, DO [address] [facility] [place] [address] PCP - General Family Practice 01/09/18 Inserter Promotional Item Relationship Specialty Start Date End Date Jagjit Matias, DO [address] [facility] [place] [address] PCP - General Family Practice 01/09/18 Inserter Promotional Item Relationship Specialty Start Date End Date Jagjit Matias, DO [address] [facility] [place] [address] PCP - General Family Medicine 01/09/18 Inserter Promotional Item Relationship Specialty Start Date End Date Jagjit Matias, DO [address] [facility] [place] [address] PCP - General Family Medicine 01/09/18 Inserter Promotional Item Relationship Specialty Start Date End Date Jagjit Matias, DO [address] [place] [address] PCP - General Family Medicine 01/09/18 Inserter Promotional Item Relationship Specialty Start Date End Date Jagjit Matias, DO [address] [place] [address] PCP - General Family Medicine 01/09/18 Inserter Promotional Item Relationship Specialty Start Date End Date Jagjit Matias, DO [address] [place] [address] PCP - General Family Medicine 01/09/18 Inserter Promotional Item Relationship Specialty Start Date End Date Jagjit Matias, DO [address] [place] [address] PCP - General Family Medicine 01/09/18 Inserter Promotional Item Relationship Specialty Start Date End Date aJgjit Matias, DO [address] [place] [address] PCP - General Family Medicine 01/09/18 Inserter Promotional Item Relationship Specialty Start Date End Date Jagjit Matias, DO [address] [facility] [place] [address] PCP - General Family Medicine 01/09/18 Inserter Promotional Item Relationship Specialty Start Date End Date Jagjit Matias, DO [address] [place] [address] PCP - General Family Medicine 01/09/18 Inserter Promotional Item Relationship Specialty Start Date End Date Jagjit Matias, DO [address] [place] [address] PCP - General Family Medicine 01/09/18 Inserter Promotional Item Relationship Specialty Start Date End Date Jagjit Matias, DO [address] [place] [address] PCP - General Family Medicine 01/09/18 Inserter Promotional Item Relationship Specialty Start Date End Date Jagjit Matias, DO [address] [place] [address] PCP - General Family Medicine 01/09/18 Inserter Promotional Item Relationship Specialty Start Date End Date Jagjit Matias Isadora, DO [address] [facility] [place] [address] PCP - General Family Medicine 01/09/18 Inserter Promotional Item Relationship Specialty Start Date End Date Florencio Jagjit Isadora, DO [address] [place] [address] PCP - General Family Medicine 01/09/18 Inserter Promotional Item Relationship Specialty Start Date End Date FlorencioJagjit, DO PCP - General Family Medicine 04/07/17 Inserter Promotional Item Relationship Specialty Start Date End Date Jagjit Matias DO PCP - General Family Medicine 04/07/17 Inserter Promotional Item Relationship Specialty Start Date End Date Jagjit Matias Isadora, DO [address] [facility] [place] [address] PCP - General Family Medicine 01/09/18 Inserter Promotional Item Relationship Specialty Start Date End Date Jagjit Matias Isadora, DO [address] [facility] [place] [address] PCP - General Family Medicine 01/09/18 Inserter Promotional Item Relationship Specialty Start Date End Date Jagjit Matias Isadora, DO [address] [place] [address] PCP - General Family Medicine 01/09/18 Inserter Promotional Item Relationship Specialty Start Date End Date Florencio Jagjit DO PCP - General Family Medicine 04/07/17 Inserter Promotional Item Relationship Specialty Start Date End Date Jagjit Matias DO PCP - General Family Medicine 04/07/17 Inserter Promotional Item Relationship Specialty Start Date End Date Jagjit Matias, DO [address] [facility] [place] [address] PCP - General Family Medicine 01/09/18 Inserter Promotional Item Relationship Specialty Start Date End Date Jagjit Matias, DO [address] [place] [address] PCP - General Family Medicine 01/09/18 Inserter Promotional Item Relationship Specialty Start Date End Date Jagjit Matias DO [address] [place] [address] PCP - General Family Medicine 01/09/18 Inserter Promotional Item Relationship Specialty Start Date End Date Jagjit Matias DO PCP - General Family Medicine 04/07/17 Inserter Promotional Item Relationship Specialty Start Date End Date Jagjit Matias DO [address] [place] [address] PCP - General Family Medicine 01/09/18 Inserter Promotional Item Relationship Specialty Start Date End Date Jagjit Matias DO [address] [place] [address] PCP - General Family Medicine 01/09/18 Inserter Promotional Item Relationship Specialty Start Date End Date Jagjit Matias DO [address] [facility] [place] [address] PCP - General Family Medicine 01/09/18 Inserter Promotional Item Relationship Specialty Start Date End Date Jagjit Matias DO [address] [place] [address] PCP - General Family Medicine 01/09/18 Inserter Promotional Item Relationship Specialty Start Date End Date Jagjit Matias DO [address] [facility] [place] [address] PCP - General Family Medicine 01/09/18 Inserter Promotional Item Relationship Specialty Start Date End Date Jagjit Matias DO [address] [place] [address] PCP - General Family Medicine 01/09/18 Inserter Promotional Item Relationship Specialty Start Date End Date Jagjit Matias DO [address] [place] [address] PCP - General Family Medicine 01/09/18 Inserter Promotional Item Relationship Specialty Start Date End Date Jagjit Matias, [address] [place] [address] PCP - General Family Medicine 01/09/18 Inserter Promotional Item Relationship Specialty Start Date End Date Jagjit Matias DO [address] [place] [address] PCP - General Family Medicine 01/09/18 Inserter Promotional Item Relationship Specialty Start Date End Date Jagjit Matias DO [address] [place] [address] PCP - General Family Medicine 01/09/18 Inserter Promotional Item Relationship Specialty Start Date End Date Jagjit Matias, [address] [place] [address] PCP - General Family Medicine 01/09/18 Inserter Promotional Item Relationship Specialty Start Date End Date Jagjit Matias DO [address] [place] [address] PCP - General Family Medicine 01/09/18 Inserter Promotional Item Relationship Specialty Start Date End Date Jagjit Matias DO [address] [place] [address] PCP - General Family Medicine 01/09/18 Inserter Promotional Item Relationship Specialty Start Date End Date Jagjit Matias, [address] [place] [address] PCP - General Family Medicine 01/09/18 Inserter Promotional Item Relationship Specialty Start Date End Date Jagjit Matias, [address] [place] [address] PCP - General Family Medicine 01/09/18 Inserter Promotional Item Relationship Specialty Start Date End Date Jagjit Matias, [address] [place] [address] PCP - General Family Medicine 01/09/18 Inserter Promotional Item Relationship Specialty Start Date End Date Jagjit Matias DO [address] [place] [address] PCP - General Family Medicine 01/09/18 Inserter Promotional Item Relationship Specialty Start Date End Date Jagjit Matias DO [address] [place] [address] PCP - General Family Medicine 01/09/18 Inserter Promotional Item Relationship Specialty Start Date End Date Jagjit Matias, [address] [place] [address] PCP - General Family Medicine 01/09/18 Inserter Promotional Item Relationship Specialty Start Date End Date Jagjit Matias DO [address] [place] [address] PCP - General Family Medicine 01/09/18 Inserter Promotional Item Relationship Specialty Start Date End Date Jagjit Matias, [address] [place] [address] PCP - General Family Medicine 01/09/18 Inserter Promotional Item Relationship Specialty Start Date End Date Jagjit Matias DO [address] [place] [address] PCP - General Family Medicine 01/09/18 Inserter Promotional Item Relationship Specialty Start Date End Date Jagjit Matias DO [address] [place] [address] PCP - General Family Medicine 01/09/18 Inserter Promotional Item Relationship Specialty Start Date End Date Jagjit Matias DO [address] [place] [address] PCP - General Family Medicine 01/09/18 Inserter Promotional Item Relationship Specialty Start Date End Date Jagjit Matias DO [address] [place] [address] PCP - General Family Medicine 01/09/18 Inserter Promotional Item Relationship Specialty Start Date End Date Jagjit Matias DO [address] [place] [address] PCP - General Family Medicine 01/09/18 Inserter Promotional Item Relationship Specialty Start Date End Date Jagjit Matias DO [address] [place] [address] PCP - General Family Medicine 01/09/18 Inserter Promotional Item Relationship Specialty Start Date End Date Jagjit Matias DO [address] [place] [address] PCP - General Family Medicine 01/09/18 Kelsey Mann APRN.WOMEN'S BASKETBALL COACH [address] [place] [address] [facility] 02/[facility]24 SaloRick, TAXATION INSPECTOR.WOMEN'S BASKETBALL COACH [address] [place] [address] [facility] 02/18/24 Inserter Promotional Item Relationship Specialty Start Date End Date Jagjit Matias DO [address] [place] [address] PCP - General Family Medicine 01/09/18 Kelsey Mann, TAXATION INSPECTOR.WOMEN'S BASKETBALL COACH [address] [place] [address] [facility] 02/18/24 [facility] TAXATION INSPECTOR.WOMEN'S BASKETBALL COACH [address] [place] [address] [facility] 02/18/24 Inserter Promotional Item Relationship Specialty Start Date End Date Jagjit Matias DO [address] [facility] [place] [address] PCP - General Family Medicine 01/09/18 Kelsey Mann, TAXATION INSPECTOR.WOMEN'S BASKETBALL COACH [address] [place] [address] [facility] 02/18/24 [facility] TAXATION INSPECTOR.WOMEN'S BASKETBALL COACH [address] [place] [address] [facility] 02/18/24 Inserter Promotional Item Relationship Specialty Start Date End Date Jagjit Matias DO [address] [place] [address] PCP - General Family Medicine 01/09/18 [facility], TAXATION INSPECTOR.WOMEN'S BASKETBALL COACH [address] [place] [address] Benefit Director Family [facility] 02/18/24 Inserter Promotional Item Relationship Specialty Start Date End Date Jagjit Matias DO [address] [place] [address] PCP - General Family Medicine 01/09/18 [facility], TAXATION INSPECTOR.WOMEN'S BASKETBALL COACH [address] [place] [address] Benefit Director [facility] 02/18/24 Inserter Promotional Item Relationship Specialty Start Date End Date Jagjit Matias DO [address] [place] [address] PCP - General Family Medicine 01/09/18 [facility], TAXATION INSPECTOR.WOMEN'S BASKETBALL COACH [address] [place] [address] Benefit Director [facility] 02/18/24 Inserter Promotional Item Relationship Specialty Start Date End Date Jagjit Matias DO [address] [place] [address] PCP - General Family Medicine 01/09/18 [facility], TAXATION INSPECTOR.WOMEN'S BASKETBALL COACH [address] [place] [address] [facility] 02/18/24 Inserter Promotional Item Relationship Specialty Start Date End Date Jagjit Matias DO [address] [place] [address] PCP - General Family Medicine 01/09/18 SaloKathy rendonah, TAXATION INSPECTOR.WOMEN'S BASKETBALL COACH [address] [place] [address] Benefit Director Family [facility] 02/18/24 Inserter Promotional Item Relationship Specialty Start Date End Date Jagjit Matias DO [address] [place] [address] PCP - General Family Medicine 01/09/18 [facility], TAXATION INSPECTOR.WOMEN'S BASKETBALL COACH [address] [place] [address] Benefit Director [facility] 02/18/24 Inserter Promotional Item Relationship Specialty Start Date End Date Jagjit Matias DO [address] [place] [address] PCP - General Family Medicine 01/09/18 [facility], TAXATION INSPECTOR.WOMEN'S BASKETBALL COACH [address] [place] [address] [facility] 02/18/24 Inserter Promotional Item Relationship Specialty Start Date End Date Jagjit Matias DO [address] [place] [address] PCP - General Family Medicine 01/09/18 [facility], TAXATION INSPECTOR.WOMEN'S BASKETBALL COACH [address] [place] [address] [facility] 02/18/24 Inserter Promotional Item Relationship Specialty Start Date End Date Jagjit Matias DO [address] [place] [address] PCP - General Family Medicine 01/09/18 SaloRick, TAXATION INSPECTOR.WOMEN'S BASKETBALL COACH [address] [place] [address] [facility] 02/18/24 Jana Mahmood APRN.WOMEN'S BASKETBALL COACH [address] [place] [address] [facility] 08/26/24 Inserter Promotional Item Relationship Specialty Start Date End Date Jagjit Matias DO [address] [place] [address] PCP - General Family Medicine 01/09/18 Rick Leong APRN.WOMEN'S BASKETBALL COACH [address] [place] [address] [facility] 02/18/24 Jana Mahmood APRN.WOMEN'S BASKETBALL COACH [address] [place] [address] [facility] 08/26/24 Inserter Promotional Item Relationship Specialty Start Date End Date Jagjit Matias DO [address] [place] [address] PCP - General Family Medicine 01/09/18 Rick Leong APRN.WOMEN'S BASKETBALL COACH [address] [place] [address] [facility] 02/18/24 Jana Mahmood APRN.WOMEN'S BASKETBALL COACH [address] [place] [address] [facility] 08/26/24 FOR RECORDS PERTAINING TO PATIENTS WHO ARE OR HAVE BEEN ENROLLED IN A CHEMICAL DEPENDENCY/SUBSTANCEABUSE PROGRAM, SOME INFORMATION MAY BE OMITTED. This clinical summary was aggregated from multiple sources. Caution should be exercised in using it in the provision of clinical care. This summary normalizes information from multiple sources, and as a consequence, information in this document may materially change the coding, format and clinical context of patient data. In addition, data may be omitted in some cases. CLINICAL DECISIONS SHOULD BE BASED ON THE PRIMARY CLINICAL RECORDS. [facility] [employer] [facility]. provides no warranty or guarantee of the accuracy or completeness of information in this document.
--- OUTSIDE RECORDS SUMMARY | 2024-10-21 07:18 | XMS RPT_ITS | CCD ---
Author Organization [facility] Care Team Providers Care Filling Machine Tender Name Role Phone MANN, AUNDREA L Unavailable [...] Matias Jagjit NEGRO Primary Care Provider Johnathan MINE ENVIRONMENTAL ENGINEER.TECHNICAL SALES MANAGER, Kelsey Ramirez Unavailable Salo MINE ENVIRONMENTAL ENGINEER.TECHNICAL SALES MANAGERRick Unavailable Ela MINE ENVIRONMENTAL ENGINEER.TECHNICAL SALES MANAGER, Jana Aragon Unavailable [phone] MATIAS, JAGJIT L Primary Care Unavailable GOLIAS, [...] sources) Cephalexin; Translations: [CEPHALEXIN] Drug Allergy 6 [facility] (20 sources) Diclofenac; Translations: [DICLOFENAC] Drug Allergy 6 [facility] (20 sources) Iodine; Translations: [IODINE] Drug Allergy 6 [facility] (9 sources) Latex Propensity to adverse reactions to drug [facility] (20 sources) levoFLOXacin; Translations: [LEVOFLOXACIN] Drug Allergy 6 [facility] (14 sources) Penicillins; Translations: [PENICILLINS] Propensity to adverse reactions to drug 6 Rash [facility] (20 sources) natural latex rubber; Translations: [LATEX, NATURAL RUBBER] Propensity to adverse reactions to drug (disorder) 5 Rash, Intolerance, Itching [facility] Other [place] [facility] (6 sources) Penicillins Drug Intolerance 6 [facility] Work Phone: (20 sources) Penicillins Drug Intolerance 6 [facility] Work Phone: (20 sources) Chlorhexidine; Translations: [CHLORHEXIDINE] Drug Allergy 3 [facility] Work Phone: (11 sources) Penicillins Drug Intolerance 6 [facility] (1 source) Cephalexin Drug Allergy 2 [facility] (1 source) Diclofenac Drug Allergy 2 [facility] (1 source) Iodine Drug Allergy 2 [facility] (1 source) Latex Drug allergy (disorder) 2 [facility] (1 source) Penicillins Drug allergy (disorder) 2 [facility] Medications Current Medications Medication Drug Class(es) Dates Sig (Normalized) Sig (Original) acetaminophen 325 mg oral tablet (20 sources) Start: 07-07-2022 take 2 tablets by mouth every six hours as needed acetaminophen (TYLENOL) 325 mg tablet Take 2 tablets by mouth every 6 hours as needed for pain. 07/07/2022 Active Comment on above: Take 2 tablets by [facility] every 6 hours as needed for pain. [...] Comment on above: Take 1 tablet by [facility] one time only for 1 dose. 1 [...] pain/spasms) for up to 21 doses. nystatin [id number] unt/ml topical cream (13 sources) Polyene Antifungal [...] Test Name Value Interpretation Reference Range Facility [facility] 10-09-2024 [facility] LETHA CASTRO ([id number]) 1940 F Date Time Provider Department 10/09/24 JAGJIT MATIAS [facility] During your visit today, we recorded the following information about you: Danya Jones RN 10/09/2024 9:34 AM Signed Patient calls to report that [facility] hasn't received the orders for ultrasound abdomen and elastography liver. Faxed to [phone] per request. Danya Jones RN Allergies As [...] Encounter Status:Closed by DANYA JONES on 10/09/24 [facility] CNOVon 10-07-2024 CNOV Office Visit (FAMPWS ) GLORIALETHA ([id number]) 1940 F Date Time Provider Department 10/07/24 7:40 AM [facility] During your visit today, we recorded the following information about you: Temperature Pulse Respiration Blood pressure 97 degrees 60/minute 16/minute 150/82 Weight Height 67.6 kg 1.58 m Jagjit Matias DO 10/07/2024 11:43 AM Luis Antonio Ashley Gloria is a 84 year old female [...] check Elastography test of the liver at [facility] [phone] Jagjit Matias DO 10/07/2024 11:43 AM Signed [...] SPEC WHEN PFRMD 07/17/2014 Colonoscopy EGD W/O [facility] SPEC VARICIES INJ 06/24/2021 ESOPHAGOGASTRODUODENOSCOPY TRANSORAL [...] 1 ta (more content not included)... Normal [facility] Basic metabolic 2000 panelon 10-03-2024 Anion gap [Moles/Vol] 13 mmol/L Normal 10-25 [facility] Comment on above: Order Comment: Speci men Type: BLOOD SPECIMEN Ordering Facility: [facility] Address: [address] [place] [address] Performed By: #### 2 132-9, 2276-4, 83559-9, 82311-8 #### [facility] CLIA [id number] [address] [place], [place] [address] [id number] [address] [place] Calcium [Mass/Vol] 9.5 mg/dL Normal 8.5-10.2 [facility] Comment on above: Order Comment: Speci men Type: BLOOD SPECIMEN Ordering Facility: [facility] Address: [address] [place] [address] Performed By: #### 2 132-9, 2276-4, 14443-8, 15738-9 #### [facility] CLIA [id number] [address] [place] [address] [place] Chloride [Moles/Vol] 105 mmol/L Normal 98-107 [facility] Comment on above: Order Comment: Speci men Type: BLOOD SPECIMEN Ordering Facility: [facility] Address: [address] [place] [address] Performed By: #### 2 132-9, 2276-4, 48777-7, 31047-1 #### [facility] CLIA [id number] [address] [place] [address] [place] CO2 [Moles/Vol] 24 mmol/L Normal 22-30 [facility] Comment on above: Order Comment: Speci men Type: BLOOD SPECIMEN Ordering Facility: [facility] Address: [address] [place] [address] Performed By: #### 2 132-9, 2276-4, 47556-0, 28913-1 #### [facility] CLIA [id number] [address] [place] [address] [place] Creatinine [Mass/Vol] 0.80 mg/dL Normal 0.58-0.96 [facility] Comment on above: Order Comment: Speci men Type: BLOOD SPECIMEN Ordering Facility: [facility] Address: [address] [place] [address] Performed By: #### 2 132-9, 2276-4, 52867-9, 21148-0 #### [facility] CLIA [id number] [address] [place] [address] [place] eGFRcr SerPlBld CKD-EPI 2020 74 mL/min/1.73m??? Normal >=60 [facility] Comment on above: Order Comment: Mustapha christian Type: BLOOD SPECIMEN Ordering Facility: [facility] Address: [address] [place] [address] Result Comment: Debby mated Glomerular Filtration Rate [...] GFR. Performed By: #### 2 132-9, 2276-4, 94910-0, 73551-5 #### [facility] CLIA [id number] [address] [place] [address] [place] Glucose [Mass/Vol] 102 mg/dL High 74-99 [facility] Comment on above: Order Comment: Mustapha christian Type: BLOOD SPECIMEN Ordering Facility: [facility] Address: [address] [place] [address] Result Comment: The [place] [employer] (ADA) provides guidance for cutoff [...] Standards of Medical Care in Diabetes 2016, [place] [employer]. Diabetes Care. 2016.39(Suppl 1). Performed By: #### 2 132-9, 2276-4, 54969-9, 56151-3 #### [facility] CLIA [id number] [address] [place] [address] [place] Potassium [Moles/Vol] 4.2 mmol/L Normal 3.7-5.1 [facility] Comment on above: Order Comment: Speci men Type: BLOOD SPECIMEN Ordering Facility: [facility] Address: [address] [place] [address] Performed By: #### 2 132-9, 2276-4, 94343-9, 65179-3 #### [facility] CLIA [id number] [address] [place] [address] [place] Sodium [Moles/Vol] 142 mmol/L Normal 136-144 [facility] Comment on above: Order Comment: Speci men Type: BLOOD SPECIMEN Ordering Facility: [facility] Address: [address] [place] [address] Performed By: #### 2 132-9, 2276-4, 97841-2, 75383-1 #### [facility] CLIA [id number] [address] [place] [address] [place] Urea nitrogen [Mass/Vol] 32 mg/dL High 7-21 [facility] Comment on above: Order Comment: Speci men Type: BLOOD SPECIMEN Ordering Facility: [facility] Address: [address] [place] [address] Performed By: #### 2 132-9, 2276-4, 16221-3, 56789-8 #### [facility] CLIA [id number] [address] [place] [address] [place] MRI ABDOMEN WO/W IVCONon MRI ABDOMEN WO/W IVCON * * *Final Report* * * DATE OF EXAM: Aug 22 2024 10:11AM [facility] 0689 - MRI ABDOMEN WO/W [...] liver. Hiatal hernia. Cholelithiasis. Stable pancreatic cysts Color Depositing Machine Tender: SAAD Transcribe Date/Time: Aug 28 2024 10:18A Dictated by : YULY SAMAYOA MD This examination was interpreted and the report reviewed and electronically signed by: YULY SAMAYOA MD on Aug 28 2024 10:36AM EST [id number] Normal [facility] XR CHEST 2V FRONTAL/LATon XR CHEST 2V [...] shoulder prosthesis IMPRESSION: No acute radiographic abnormality. Color Depositing Machine Tender: SAAD Transcribe Date/Time: Aug 23 2024 2:48P Dictated by : ANNETTA TORIBIO MD This examination was interpreted and the report reviewed and electronically signed by: ANNETTA TORIBIO MD on Aug 23 2024 2:49PM EST [id number] Normal [facility] CNTHERAPYon 08-09-2024 CNTHERAPY OT/PT/Speech Visit ( PTWS) LETHA CASTRO ([id number]) 1940 F Date Time Provider Department 08/09/24 11:15 AM ROCKY LAROSE PTWS Date Time Provider Department Center 08/09/2024 11:15 AM [id number], BRENT PTWS Michelle Chester Reason for Visit: [...] ORAL) Take by mouth once daily. Normal [facility] CNTHERAPYon 08-08-2024 CNTHERAPY OT/PT/Speech Visit ( PTWS) LETHA CASTRO ([id number]) 1940 F Date Time Provider Department 08/08/24 10:45 AM ROCKY LAROSE PTWS Date Time Provider Department Center 08/08/2024 10:45 AM [id number], BRENT PTWS Michelle Chester Reason for Visit: [...] - Rash Date Reviewed: 03/29/2024 Reviewed by: Eilzabeth Watts LPN - Fully Assessed Prescriptions as [...] ORAL) Take by mouth once daily. Normal [facility] LET[facility] CASTR[facility] ([id number]) 1940 F Date Time Provider Department 08/02/24 JAGJIT MATIAS [facility] During your visit today, we recorded the following information about you: Zora Call RN 08/02/2024 10:09 AM Signed Patient calls and states that she needs orders placed for yearly chest x ray and MRI abdomen. Advised patient that urology had already placed these orders and that she needs to get the done prior to 08/25/2024. Patient voiced understanding. Patient transferred to multi share program coordinator to schedule test. Zora Call RN Allergies [...] Encounter Status:Closed by ZORA CALL on 08/02/24 [facility] CNTHERAPYon 07-29-2024 CNTHERAPY OT/PT/Speech Visit ( PTWS) LETHA CASTRO ([id number]) 1940 F Date Time Provider Department 07/29/24 9:30 AM ROCKY LAROSE PTWS Date Time Provider Department [place] 07/29/2024 9:30 AM [id number], BRENT PTWS Teal [facility] Reason for Visit: Physical Therapy [503] Primary [...] ORAL) Take by mouth once daily. Normal [facility] CNTHERAPYon 07-26-2024 CNTHERAPY OT/PT/Speech Visit ( PTWS) LETHA CASTRO ([id number]) 1940 F Date Time Provider Department 07/26/24 3:00 PM ROCKY LAROSE PTWS Date Time Provider Department Center 07/26/2024 3:00 PM [id number], BRENT PTWS Michelle Chester Reason for Visit: [...] ORAL) Take by mouth once daily. Normal [facility] CNTHERAPYon 07-25-2024 CNTHERAPY OT/PT/Speech Visit ( PTWS) LETHA CASTRO ([id number]) 1940 F Date Time Provider Department 07/25/24 10:00 AM ROCKY LAROSE PTRADHA Date Time Provider Department Center 07/25/2024 10:00 AM [id number], BRENT PTRADHA Chester Reason for Visit: Physical [...] D3 ORAL) Take by mouth once daily. Global Director Air And Climate Change: Addendum Therapy (PT/OT/Speech/Resp) ID: [id number] 07/25/2024 10:36 AM Author: ROCKY LAROSE Signed by ROCKY LAROSE PT on 07/25/2024 at 10:36 AM * * * This document replaces document [id number] * * * Document text: Program_ID:[id number] Access Code: [email or web address] URL: [email or web address] Date: 07-25-2024 Prepared By: Rocky Larose Program Notes Exercises - Sidelying Hip Abduction - 2 x daily - 7 x weekly - 2 sets - 10 reps - Clamshell - 2 x daily - 7 x weekly - 2 sets - 10 reps Normal [facility] THERAPY NTon 07-25-2024 THERAPY NT HNO ID: [id number] Author: ROCKY LAROSE PT Service: ? Author Type: Physical Therapist Type: Therapy (PT/OT/Speech/Resp) Filed: 07/25/2024 10:36 Note Text: Program_ID:[id number] Access Code: [email or web address] URL: [email or web address] Date: 07-25-2024 Prepared By: Rocky Larose Program Notes Exercises - Sidelying Hip Abduction - 2 x daily - 7 x weekly - 2 sets - 10 reps - Clamshell - 2 x daily - 7 x weekly - 2 sets - 10 reps Normal [facility] [id number] 07-10-2024 [id number] HNO ID: [id number] Author: ROCKY LAROSE PT Service: ? Author Type: Physical Therapist Type: [id number] Filed: 07/10/2024 17:04 Note Text: [facility] Physical Therapy Plan of Care Certification Patient Name: Letha Castro : 1940 [facility] #: [id number] Date: 07/10/2024 To: Jagjit Matias, DO From Therapist: Rocky Larose PT RE: Patient Certification/ Recertification Your [...] symmetrical SLS to reflect decreased fall risk. [place] in home exercise program including cardiovascular exercise. [...] Planned: 12 Planned Treatment Interventions: Therapeutic exercise (93821), Neuromuscular re-education (98167), Manual therapy (99023), Therapeutic activities (96564), Self-halfway management (05460), Gait Training (37820), Patient/Family/Caregiver Education, Body Mechanics Training, General Conditioning, [...] the treatment plan for Letha Ashley Gloria, [facility]# [id number] for the period of 07/10/24 -- 08/21/24, established on 07/10/2024. Signature certifies the need for therapy services. Normal [facility] CNTHERAPYon 07-10-2024 CNTHERAPY OT/PT/Speech Visit ( PTWS) LETHA CASTRO ([id number]) 1940 F Date Time Provider Department 07/10/24 9:00 AM ROCKY LAROSE PTWS Date Time Provider Department Center 07/10/2024 9:00 AM [id number], BRENT PTWS Michelle Chester Reason for Visit: [...] ORAL) Take by mouth once daily. Normal [facility] SCREENINGon 05-30-2024 [facility] SCREENING * * *Final Report* * * DATE OF EXAM: May 30 2024 1:11PM JULIANN 0581 - [facility] SCREENING / PROCEDURE REASON: Encounter for screening mammogram for malignant neoplasm of breast * * * * Physician Interpretation * * * * RESULT: [facility] [address] [place] [address] #[id number] - MATT SCREENING HISTORY: 83 year-old patient [...] Maria Rodriguez M.D. Electronically signed on: 06/01/2024 Color Depositing Machine Tender: MARK Transcribe Date/Time: May 30 2024 12:54P Dictated by: ANA MARIA RODRIGUEZ MD This examination was interpreted and the report reviewed and electronically signed by: ANA MARIA RODRIGUEZ MD on Jun 01 2024 12:20PM EST [id number] Normal [facility] CNOVon 03-29-2024 CNOV Office Visit (FAMPWS ) LETHA CASTRO ([id number]) 1940 F Date Time Provider Department 03/29/24 [...] SPEC WHEN PFRMD 07/17/2014 Colonoscopy EGD W/O [facility] SPEC VARICIES INJ 06/24/2021 ESOPHAGOGASTRODUODENOSCOPY TRANSORAL [...] with supplements or by diet (goal of 6819-0782 mg/day - MATT SCREENING 3. Vitamin D deficiency - ICD9: 268.9, ICD10: E55.9 Stable, continue supplement 4. Dyslipidemia - ICD9: 272.4, ICD10: E78.5 - Con (more content not included)... Normal [facility] 25(OH)D3 SerPl-mCncon 2024 25-hydroxyvitamin D3 [Mass/Vol] 58.6 ng/mL Normal 31.0-80.0 [facility] Comment on above: Order Comment: Specbarry christian Type: BLOOD SPECIMEN Ordering Facility: [facility] Address: [address] [place] [address] Performed By: #### 1 989-3 #### [facility] CLIA [id number] [address] [place] [address] [place] CBC panel Auto (Bld)on 03-27 Erythrocyte distribution width (RBC) [Ratio] 13.4 % Normal 11.5-15.0 [facility] Comment on above: Order Comment: Mustapha christian Type: BLOOD SPECIMEN Ordering Facility: [facility] Address: [address] [place] [address] Performed By: #### 1 989-3 #### [facility] CLIA [id number] [address] [place] [address] [place] Hematocrit (Bld) [Volume fraction] 43.7 % Normal 36.0-46.0 [facility] Comment on above: Order Comment: Mustapha men Type: BLOOD SPECIMEN Ordering Facility: [facility] Address: [address] [place] [address] Performed By: #### 1 989-3 #### [facility] CLIA [id number] [address] [place] [address] [place] Hemoglobin (Bld) [Mass/Vol] 13.6 g/dL Normal 11.5-15.5 [facility] Comment on above: Order Comment: Speci men Type: BLOOD SPECIMEN Ordering Facility: [facility] Address: [address] [place] [address] Performed By: #### 1 989-3 #### [facility] CLIA [id number] [address] [place] [address] [place] MCH (RBC) [Entitic mass] 27.0 pg Normal 26.0-34.0 [facility] Comment on above: Order Comment: Speci men Type: BLOOD SPECIMEN Ordering Facility: [facility] Address: [address] [place] [address] Performed By: #### 1 989-3 #### [facility] CLIA [id number] [address] [place] [address] [place] MCHC (RBC) [Mass/Vol] 31.1 g/dL Normal 30.5-36.0 [facility] Comment on above: Order Comment: Speci men Type: BLOOD SPECIMEN Ordering Facility: [facility] Address: [address] [place] [address] Performed By: #### 1 989-3 #### [facility] CLIA [id number] [address] [place] [address] [place] MCV (RBC) [Entitic vol] 86.9 fL Normal 80.0-100.0 [facility] Comment on above: Order Comment: Speci men Type: BLOOD SPECIMEN Ordering Facility: [facility] Address: [address] [place] [address] Performed By: #### 1 989-3 #### [facility] CLIA [id number] [address] [place] [address] [place] Nucleated RBC (Bld) [#/Vol] 10*3/uL Normal <0.01 [facility] Comment on above: Order Comment: Speci men Type: BLOOD SPECIMEN Ordering Facility: [facility] Address: [address] [place] [address] Performed By: #### 1 989-3 #### [facility] CLIA [id number] [address] [place] [address] [place] Platelet mean volume (Bld) [Entitic vol] 11.1 fL Normal 9.0-12.7 [facility] Comment on above: Order Comment: Speci men Type: BLOOD SPECIMEN Ordering Facility: [facility] Address: [address] [place] [address] Performed By: #### 1 989-3 #### [facility] CLIA [id number] [address] [place] [address] [place] Platelets (Bld) [#/Vol] 247 10*3/uL Normal 150-400 [facility] Comment on above: Order Comment: Speci men Type: BLOOD SPECIMEN Ordering Facility: [facility] Address: [address] [place] [address] Performed By: #### 1 989-3 #### [facility] CLIA [id number] [address] [place] [address] [place] RBC (Bld) [#/Vol] 5.03 10*6/uL Normal 3.90-5.20 [facility] Comment on above: Order Comment: Speci men Type: BLOOD SPECIMEN Ordering Facility: [facility] Address: [address] [place] [address] Performed By: #### 1 989-3 #### [facility] CLIA [id number] [address] [place] [address] [place] WBC (Bld) [#/Vol] 5.40 10*3/uL Normal 3.70-11.00 [facility] Comment on above: Order Comment: Speci men Type: BLOOD SPECIMEN Ordering Facility: [facility] Address: [address] [place] [address] Performed By: #### 1 989-3 #### [facility] CLIA [id number] [address] [place] [address] [place] Comprehensive metabolic 2000 panelon 03-27-2024 Albumin [Mass/Vol] 4.2 g/dL Normal 3.9-4.9 [facility] Comment on above: Order Comment: Speci men Type: BLOOD SPECIMEN Ordering Facility: [facility] Address: [address] [place] [address] Performed By: #### 1 989-3 #### [facility] CLIA [id number] [address] [place] [address] [place] ALP [Catalytic activity/Vol] 138 U/L High 34-123 [facility] Comment on above: Order Comment: Speci men Type: BLOOD SPECIMEN Ordering Facility: [facility] Address: [address] [place] [address] Performed By: #### 1 989-3 #### [facility] CLIA [id number] [address] [place] [address] [place] ALT [Catalytic activity/Vol] 21 U/L Normal 7-38 [facility] Comment on above: Order Comment: Speci men Type: BLOOD SPECIMEN Ordering Facility: [facility] Address: [address] [place] [address] Performed By: #### 1 989-3 #### [facility] CLIA [id number] [address] [place] [address] [place] Anion gap [Moles/Vol] 12 mmol/L Normal 8-15 [facility] Comment on above: Order Comment: Speci men Type: BLOOD SPECIMEN Ordering Facility: [facility] Address: [address] [place] [address] Performed By: #### 1 989-3 #### [facility] CLIA [id number] [address] [place] [address] [place] AST [Catalytic activity/Vol] 27 U/L Normal 13-35 [facility] Comment on above: Order Comment: Speci men Type: BLOOD SPECIMEN Ordering Facility: [facility] Address: [address] [place] [address] Performed By: #### 1 989-3 #### [facility] CLIA [id number] [address] [place] [address] [place] Bilirubin [Mass/Vol] 0.8 mg/dL Normal 0.2-1.3 [facility] Comment on above: Order Comment: Speci men Type: BLOOD SPECIMEN Ordering Facility: [facility] Address: [address] [place] [address] Performed By: #### 1 989-3 #### [facility] CLIA [id number] [address] [place] [address] [place] Calcium [Mass/Vol] 9.8 mg/dL Normal 8.5-10.2 [facility] Comment on above: Order Comment: Speci men Type: BLOOD SPECIMEN Ordering Facility: [facility] Address: [address] [place] [address] Performed By: #### 1 989-3 #### [facility] CLIA [id number] [address] [place], [place] [address] [place] Chloride [Moles/Vol] 103 mmol/L Normal 98-107 [facility] Comment on above: Order Comment: Speci men Type: BLOOD SPECIMEN Ordering Facility: [facility] Address: [address] [place], [place] [id number] Performed By: #### 1 989-3 #### [facility] CLIA [id number] [address] [place], [place] [address] [place] CO2 [Moles/Vol] 26 mmol/L Normal 22-30 [facility] Comment on above: Order Comment: Speci men Type: BLOOD SPECIMEN Ordering Facility: [facility] Address: [address] [place] [address] Performed By: #### 1 989-3 #### [facility] CLIA [id number] [address] [place] [address] [place] Creatinine [Mass/Vol] 0.79 mg/dL Normal 0.58-0.96 [facility] Comment on above: Order Comment: Speci men Type: BLOOD SPECIMEN Ordering Facility: [facility] Address: [address] [place] [address] Performed By: #### 1 989-3 #### [facility] CLIA [id number] [address] [place] [address] [place] Creatinine and Glomerular filtration rate.predicted panel (S/P/Bld) 75 mL/min/1.73m??? Normal >=60 [facility] Comment on above: Order Comment: Speci men Type: BLOOD SPECIMEN Ordering Facility: [facility] Address: [address] [place] [address] Result Comment: Debby mated Glomerular Filtration Rate [...] GFR. Performed By: #### 1 989-3 #### [facility] CLIA [id number] [address] [place] [address] [place] Glucose [Mass/Vol] 92 mg/dL Normal 74-99 [facility] Comment on above: Order Comment: Speci men Type: BLOOD SPECIMEN Ordering Facility: [facility] Address: [address] [place] [address] Result Comment: The [place] Diabetes Association (ADA) provides guidance for cutoff [...] Standards of Medical Care in Diabetes 2016, [place] [employer]. Diabetes Care. 2016.39(Suppl 1). Performed By: #### 1 989-3 #### [facility] CLIA [id number] [address] [place] [address] [place] Potassium [Moles/Vol] 4.2 mmol/L Normal 3.7-5.1 [facility] Comment on above: Order Comment: Speci men Type: BLOOD SPECIMEN Ordering Facility: [facility] Address: [address] [place] [address] Performed By: #### 1 989-3 #### [facility] CLIA [id number] [address] [place] [address] [place] Protein [Mass/Vol] 7.2 g/dL Normal 6.3-8.0 [facility] Comment on above: Order Comment: Speci men Type: BLOOD SPECIMEN Ordering Facility: [facility] Address: [address] [place] [address] Performed By: #### 1 989-3 #### [facility] CLIA [id number] [address] [place] [address] [place] Sodium [Moles/Vol] 141 mmol/L Normal 136-144 [facility] Comment on above: Order Comment: Speci men Type: BLOOD SPECIMEN Ordering Facility: [facility] Address: [address] [place] [address] Performed By: #### 1 989-3 #### [facility] CLIA [id number] [address] [place] [address] [place] Urea nitrogen [Mass/Vol] 24 mg/dL High 7-21 [facility] Comment on above: Order Comment: Mustapha christian Type: BLOOD SPECIMEN Ordering Facility: [facility] Address: [address] [place] [address] Performed By: #### 1 989-3 #### [facility] CLIA [id number] [address] [place] [address] [place] HbA1c (Bld)on 03-27-2024 Average glucose Estimated from glycated hemoglobin (Bld) [Mass/Vol] 117 mg/dL Normal [facility] Comment on above: Order Comment: Mustapha christian Type: BLOOD SPECIMEN Ordering Facility: [facility] Address: [address] [place] [address] Result Comment: eAG: (Estimated average glucose) is a calculated value from HgbA1c and is operations support representative of the average blood glucose level in the last 2-3 month period. Performed By: #### 2 132-9, 2276-4, 57983-6, 09402-2 #### [facility] CLIA [id number] [address] [place] [address] [place] HbA1c (Bld) [Mass fraction] 5.7 % High 4.3-5.6 [facility] Comment on above: Order Comment: Mustapha christian Type: BLOOD SPECIMEN Ordering Facility: [facility] Address: [address] [place] [address] Result Comment: [place] Diabetes Association guidelines indicate that patients with HgbA1c in the range 5.7-6.4% are at increased risk for development of diabetes, and intervention by lifestyle modification may be beneficial. HgbA1c greater or equal to 6.5% is considered diagnostic of diabetes. Performed By: #### 2 132-9, 2276-4, 53116-2, 35083-4 #### [facility] CLIA [id number] [address] [place], [place] [address] [place] Iron and Iron binding capaci ty panelon 03-27-2024 Iron [Mass/Vol] 90 ug/dL Normal 41-186 [facility] Comment on above: Order Comment: Speci men Type: BLOOD SPECIMEN Ordering Facility: [facility] Address: [address] [place] [address] Performed By: #### 1 989-3 #### [facility] CLIA [id number] [address] [place] [address] [place] Iron binding capacity [Mass/Vol] 293 ug/dL Normal 232-386 [facility] Comment on above: Order Comment: Speci men Type: BLOOD SPECIMEN Ordering Facility: [facility] Address: [address] [place] [address] Performed By: #### 1 989-3 #### [facility] CLIA [id number] [address] [place] [address] [place] Iron/TIBC [Molar ratio] 30.7 % Normal 15.0-57.0 [facility] Comment on above: Order Comment: Speci men Type: BLOOD SPECIMEN Ordering Facility: [facility] Address: [address] [place] [address] Performed By: #### 1 989-3 #### [facility] CLIA [id number] [address] [place] [address] [place] Vit B12 [facility] 025 Cobalamin (Vitamin B12) [Mass/Vol] 641 pg/mL Normal 232-1245 [facility] Comment on above: Order Comment: Speci men Type: BLOOD SPECIMEN Ordering Facility: [facility] Address: [address] [place] [address] Performed By: #### 1 989-3 #### [facility] CLIA [id number] [address] [place] [address] [place] Abbi 03-25-2024 TANYA Telephone (FAMPWS) GLORIALETHA ([id number]) 1940 F Date Time Provider Department 03/25/24 [...] review. Patient requests a call back at [phone] once orders are placed. TRUDY Clinton Alyson Taylor, APRN.TECHNICAL SALES MANAGER 03/25/2024 4:24 PM Signed Lab signed. Please [...] Date Reviewed: 10/26/2023 Reviewed by: Rick Leong APRN.TECHNICAL SALES MANAGER - Fully Assessed Reason for Visit: Orders [681] Primary Visit Diagnosis:Other iron deficiency anemia [D50.8] Other Visit Diagnoses:Dyslipidemia [E78.5] Vitamin D deficiency [E55.9] Vitamin B 12 deficiency [E53.8] Impaired fasting glucose [R73.01] Order(s):HEMOGLOBIN A1C [SKJIM7D] Order #: [id number] FUTURE VITAMIN B12 [SQB12] Order #: [id number] FUTURE VITAMIN D 25 HYDROXY [SQVITD] Order #: [id number] FUTURE COMPREHENSIVE METABOLIC PANEL [SQCMP] Order #: [id number] FUTURE IRON AND TIBC [SQIRON] Order #: [id number] FUTURE COMPLETE BLOOD COUNT [SQCBC] Order #: [id number] FUTURE Prescriptions as of 03/25/2024 - pantoprazole [...] Status:Closed by ELIZABETH WATTS LPN on 03/25/24 [facility] GLORIALETHA B ([id number]) 1940 F Date Time Provider Department 10/27/23 RICK LEONG [facility] During your visit today, we recorded the following information about you: Rick Leong APRN.TECHNICAL SALES MANAGER 10/27/2023 7:04 AM Signed Please let Letha know I received her lab results. Her iron and hgb are in a good range, so no concerns there. It does show she has some dehydration-please reinforce that she get a minimum of 60-80oz of water daily. Her vitamin levels all look good. Rick Leong APRN.TECHNICAL SALES MANAGER Vandana Valverde MA 10/27/2023 9:16 AM Signed [...] Date Reviewed: 10/26/2023 Reviewed by: Rick Leong APRN.TECHNICAL SALES MANAGER - Fully Assessed Reason for Visit: Results [...] Status:Closed by VANDANA VALVERDE on 10/27/23 Normal [facility] 25(OH)D3 [facility] 2023 25-hydroxyvitamin D3 [Mass/Vol] 67.0 ng/mL Normal 31.0-80.0 [facility] Comment on above: Order Comment: Speci men Type: BLOOD SPECIMEN Ordering Facility: [facility] Address: [address] [place] [address] Result Comment: Clas sification of 25 OH Vitamin D status: Deficiency/Insufficiency: < or = 30 ng/ml. Sufficiency/Optimal Levels: 31-80 ng/mL Toxicity: > 100 ng/mL. Test performed by chemiluminescent immunoassay. Performed By: #### 2 132-9, 2276-4, 61409-4, 99541-9 #### [facility] CLIA [id number] [address] [place] [address] [place] CBC panel Auto (Bld)on 10-25 Erythrocyte distribution width (RBC) [Ratio] 13.2 % 11.5 - 15.0 % [facility] Hematocrit (Bld) [Volume fraction] 43.8 % 36.0 - 46.0 % [facility] Hemoglobin (Bld) [Mass/Vol] 14.0 g/dL 11.5 - 15.5 g/dL [facility] Interpretation and review of laboratory results Normal [facility] MCH (RBC) [Entitic mass] 28.6 pg 26.0 - 34.0 pg [facility] MCHC (RBC) [Mass/Vol] 32.0 g/dL 30.5 - 36.0 g/dL [facility] MCV (RBC) [Entitic vol] 89.6 fL 80.0 - 100.0 fL [facility] Nucleated RBC (Bld) [#/Vol] NINF [facility] Platelet mean volume (Bld) [Entitic vol] 11.4 fL 9.0 - 12.7 fL [facility] Platelets (Bld) [#/Vol] 229 10*3/uL [facility] RBC (Bld) [#/Vol] 4.89 10*6/uL 3.90 - 5.2 0 m/uL [facility] WBC (Bld) [#/Vol] 4.97 10*3/uL [facility] Erythrocyte distribution width (RBC) [Ratio] 13.2 % Normal 11.5-15.0 [facility] Comment on above: Order Comment: Mustapha christian Type: BLOOD SPECIMEN Ordering Facility: [facility] Address: [address] [place] [address] Performed By: #### 2 132-9, 2276-4, 86799-7, 77579-6 #### [facility] CLIA [id number] [address] [place] [address] OF [facility] Hematocrit (Bld) [Volume fraction] 43.8 % Normal 36.0-46.0 [facility] Comment on above: Order Comment: Mustapha christian Type: BLOOD SPECIMEN Ordering Facility: [facility] Address: [address] [place] [address] Performed By: #### 2 132-9, 2276-4, 64319-2, 73913-1 #### [facility] CLIA [id number] [address] [place] [address] [place] Hemoglobin (Bld) [Mass/Vol] 14.0 g/dL Normal 11.5-15.5 [facility] Comment on above: Order Comment: Speci men Type: BLOOD SPECIMEN Ordering Facility: [facility] Address: [address] [place] [address] Performed By: #### 2 132-9, 2276-4, 81559-5, 84640-5 #### [facility] CLIA [id number] [address] [place] [address] [place] MCH (RBC) [Entitic mass] 28.6 pg Normal 26.0-34.0 [facility] Comment on above: Order Comment: Speci men Type: BLOOD SPECIMEN Ordering Facility: [facility] Address: [address] [place] [address] Performed By: #### 2 132-9, 2276-4, 38751-1, 27006-4 #### [facility] CLIA [id number] [address] [place] [address] [place] MCHC (RBC) [Mass/Vol] 32.0 g/dL Normal 30.5-36.0 [facility] Comment on above: Order Comment: Speci men Type: BLOOD SPECIMEN Ordering Facility: [facility] Address: [address] [place] [address] Performed By: #### 2 132-9, 2276-4, 03382-7, 24993-3 #### [facility] CLIA [id number] [address] [place] [address] [place] MCV (RBC) [Entitic vol] 89.6 fL Normal 80.0-100.0 [facility] Comment on above: Order Comment: Speci men Type: BLOOD SPECIMEN Ordering Facility: [facility] Address: [address] [place] [address] Performed By: #### 2 132-9, 2276-4, 78529-3, 74911-7 #### [facility] CLIA [id number] [address] [place] [address] [place] Nucleated RBC (Bld) [#/Vol] 10*3/uL Normal <0.01 [facility] Comment on above: Order Comment: Speci men Type: BLOOD SPECIMEN Ordering Facility: [facility] Address: [address] [place] [address] Performed By: #### 2 132-9, 2276-4, 07913-8, 95867-2 #### [facility] CLIA [id number] [address] [place] [address] [place] Platelet mean volume (Bld) [Entitic vol] 11.4 fL Normal 9.0-12.7 [facility] Comment on above: Order Comment: Speci men Type: BLOOD SPECIMEN Ordering Facility: [facility] Address: [address] [place] [address] Performed By: #### 2 132-9, 2276-4, 08795-9, 47919-5 #### [facility] CLIA [id number] [address] [place] [address] [place] Platelets (Bld) [#/Vol] 229 10*3/uL Normal 150-400 [facility] Comment on above: Order Comment: Speci men Type: BLOOD SPECIMEN Ordering Facility: [facility] Address: [address] [place] [address] Performed By: #### 2 132-9, 2276-4, 32237-9, 70777-3 #### [facility] CLIA [id number] [address] [place] [address] [place] RBC (Bld) [#/Vol] 4.89 10*6/uL Normal 3.90-5.20 [facility] Comment on above: Order Comment: Speci men Type: BLOOD SPECIMEN Ordering Facility: [facility] Address: [address] [place] [address] Performed By: #### 2 132-9, 2276-4, 18369-4, 61961-9 #### [facility] CLIA [id number] [address] [place] [address] [place] WBC (Bld) [#/Vol] 4.97 10*3/uL Normal 3.70-11.00 [facility] Comment on above: Order Comment: Speci men Type: BLOOD SPECIMEN Ordering Facility: [facility] Address: [address] [place] [address] Performed By: #### 2 132-9, 2276-4, 36717-6, 72465-4 #### [facility] CLIA [id number] [address] [place] [address] OF [place] [facility]OV[facility] 10-26-2023 CNOV Office Visit ([facility] ) LETHA CASTRO ([id number]) 1940 F Date Time Provider Department 10/26/23 9:00 AM [facility] visit today, we recorded the following information about you: Pulse Respiration Blood pressure Weight 74/minute 16/minute 132/80 67.3 kg Rick Leong APRN.TECHNICAL SALES MANAGER 10/26/2023 11:17 AM Signed Chief Complaint Patient [...] not room spinning. Lasts about 1-2 minutes. Ermpu-sjtskn-zgru gets about 32oz on a daily basis. [...] WHEN PFRMD Comment: Colonoscopy 06/24/2021: EGD W/O [facility] SPEC VARICIES INJ 07/17/2014: ESOPHAGOGASTRODUODENOSCOPY TRANSORAL [...] due on (more content not included)... Normal [facility] Comprehensive metabolic 2000 panelon 10-26-2023 Albumin [Mass/Vol] 4.1 g/dL Normal 3.9-4.9 [facility] Comment on above: Order Comment: Speci men Type: BLOOD SPECIMEN Ordering Facility: [facility] Address: [address] [place] [address] Performed By: #### 2 132-9, 2276-4, 21666-9, 56630-6 #### [facility] CLIA [id number] [address] [place] [address] [place] ALP [Catalytic activity/Vol] 134 U/L High 34-123 [facility] Comment on above: Order Comment: Speci men Type: BLOOD SPECIMEN Ordering Facility: [facility] Address: [address] [place] [address] Performed By: #### 2 132-9, 2276-4, 15700-5, 36509-2 #### [facility] CLIA [id number] [address] [place] [address] [place] ALT [Catalytic activity/Vol] 16 U/L Normal 7-38 [facility] Comment on above: Order Comment: Speci men Type: BLOOD SPECIMEN Ordering Facility: [facility] Address: [address] [place] [address] Performed By: #### 2 132-9, 6-4, 98143-7, 90632-8 #### [facility] CLIA [id number] [address] [place] [address] [place] Anion gap [Moles/Vol] 11 mmol/L Normal 8-15 [facility] Comment on above: Order Comment: Speci men Type: BLOOD SPECIMEN Ordering Facility: [facility] Address: [address] [place] [address] Performed By: #### 2 132-9, 2276-4, 79198-6, 98114-6 #### [facility] CLIA [id number] [address] [place] [address] [place] AST [Catalytic activity/Vol] 25 U/L Normal 13-35 [facility] Comment on above: Order Comment: Speci men Type: BLOOD SPECIMEN Ordering Facility: [facility] Address: [address] [place] [address] Performed By: #### 2 132-9, 2276-4, 88901-9, 00269-7 #### [facility] CLIA [id number] [address] [place] [address] [place] Bilirubin [Mass/Vol] 0.7 mg/dL Normal 0.2-1.3 [facility] Comment on above: Order Comment: Speci men Type: BLOOD SPECIMEN Ordering Facility: [facility] Address: [address] [place] [address] Performed By: #### 2 132-9, 2276-4, 01384-2, 46333-9 #### [facility] CLIA [id number] [address] [place] [address] [place] Calcium [Mass/Vol] 9.7 mg/dL Normal 8.5-10.2 [facility] Comment on above: Order Comment: Speci men Type: BLOOD SPECIMEN Ordering Facility: [facility] Address: [address] [place] [address] Performed By: #### 2 132-9, 2276-4, 22022-6, 15376-5 #### [facility] CLIA [id number] [address] [place] [address] [place] Chloride [Moles/Vol] 104 mmol/L Normal 98-107 [facility] Comment on above: Order Comment: Speci men Type: BLOOD SPECIMEN Ordering Facility: [facility] Address: [address] [place] [address] Performed By: #### 2 132-9, 2276-4, 40288-6, 91643-2 #### [facility] CLIA [id number] [address] [place] [address] [place] CO2 [Moles/Vol] 26 mmol/L Normal 22-30 [facility] Comment on above: Order Comment: Speci men Type: BLOOD SPECIMEN Ordering Facility: [facility] Address: [address] [place] [address] Performed By: #### 2 132-9, 2276-4, 50633-7, 26328-3 #### [facility] CLIA [id number] [address] [place] [address] [place] Creatinine [Mass/Vol] 0.80 mg/dL Normal 0.58-0.96 [facility] Comment on above: Order Comment: Mustapha men Type: BLOOD SPECIMEN Ordering Facility: [facility] Address: [address] [place] [address] Performed By: #### 2 132-9, 2276-4, 18714-3, 72895-3 #### [facility] CLIA [id number] [address] [place] [address] [place] Creatinine and Glomerular filtration rate.predicted panel (S/P/Bld) 74 mL/min/1.73m??? Normal >=60 [facility] Comment on above: Order Comment: Mustapha christian Type: BLOOD SPECIMEN Ordering Facility: [facility] Address: [address] [place] [address] Result Comment: Debby mated Glomerular Filtration Rate [...] GFR. Performed By: #### 2 132-9, 2276-4, 63377-3, 35075-6 #### [facility] CLIA [id number] [address] [place] [address] [place] Glucose [Mass/Vol] 100 mg/dL High 74-99 [facility] Comment on above: Order Comment: Mustapha christian Type: BLOOD SPECIMEN Ordering Facility: [facility] Address: [address] [place] [address] Result Comment: The [place] Diabetes Association (ADA) provides guidance for cutoff [...] Standards of Medical Care in Diabetes 2016, [place] [employer]. Diabetes Care. 2016.39(Suppl 1). Performed By: #### 2 132-9, 2276-4, 11266-8, 13259-3 #### [facility] CLIA [id number] [address] [place] [address] [place] Potassium [Moles/Vol] 4.0 mmol/L Normal 3.7-5.1 [facility] Comment on above: Order Comment: Mustapha christian Type: BLOOD SPECIMEN Ordering Facility: [facility] Address: [address] [place] [address] Performed By: #### 2 132-9, 2276-4, 36463-5, 51805-4 #### [facility] CLIA [id number] [address] [place] [address] [place] Protein [Mass/Vol] 7.1 g/dL Normal 6.3-8.0 [facility] Comment on above: Order Comment: Mustapha christian Type: BLOOD SPECIMEN Ordering Facility: [facility] Address: [address] [place] [address] Performed By: #### 2 132-9, 2276-4, 75585-7, 55263-3 #### [facility] CLIA [id number] [address] [place] [address] [place] Sodium [Moles/Vol] 141 mmol/L Normal 136-144 [facility] Comment on above: Order Comment: Mustapha christian Type: BLOOD SPECIMEN Ordering Facility: [facility] Address: [address] [place], [place] [id number] Performed By: #### 2 132-9, 2276-4, 04468-5, 08670-1 #### [facility] CLIA [id number] [address] [place] [address] [place] Urea nitrogen [Mass/Vol] 23 mg/dL High 7-21 [facility] Comment on above: Order Comment: Speci men Type: BLOOD SPECIMEN Ordering Facility: [facility] Address: [address] [place] [address] Performed By: #### 2 132-9, 2276-4, 45762-8, 68825-8 #### [facility] CLIA [id number] [address] [place] [address] [place] Ferritin SerPl-mCncon 2023 Ferritin [Mass/Vol] 149.0 ng/mL Normal 14.7-205.1 [facility] Comment on above: Order Comment: Speci men Type: BLOOD SPECIMEN Ordering Facility: [facility] Address: [address] [place] [address] Performed By: #### 2 132-9, 2276-4, 59987-5, 41008-7 #### [facility] CLIA [id number] [address] [place] [address] [place] Iron and Iron binding capaci ty panelon 10-26-2023 Iron [Mass/Vol] 72 ug/dL Normal 41-186 [facility] Comment on above: Order Comment: Speci men Type: BLOOD SPECIMEN Ordering Facility: [facility] Address: [address] [place] [address] Performed By: #### 2 132-9, 2276-4, 01523-3, 98093-4 #### [facility] CLIA [id number] [address] [place] [address] [place] Iron binding capacity [Mass/Vol] 303 ug/dL Normal 232-386 [facility] Comment on above: Order Comment: Speci men Type: BLOOD SPECIMEN Ordering Facility: [facility] Address: [address] [place] [address] Performed By: #### 2 132-9, 2276-4, 15137-9, 91704-8 #### [facility] CLIA [id number] [address] [place] [address] [place] Iron/TIBC [Molar ratio] 23.8 % Normal 15.0-57.0 [facility] Comment on above: Order Comment: Speci men Type: BLOOD SPECIMEN Ordering Facility: [facility] Address: [address] [place] [address] Performed By: #### 2 132-9, 6-4, 78477-4, 68076-2 #### [facility] CLIA [id number] [address] [place] [address] [place] Vit B12 [facility] 0815-2 024 Cobalamin (Vitamin B12) [Mass/Vol] 666 pg/mL Normal 232-1245 [facility] Comment on above: Order Comment: Speci men Type: BLOOD SPECIMEN Ordering Facility: [facility] Address: [address] [place] [address] Performed By: #### 2 132-9, 6-4, 14661-5, 49261-4 #### [facility] CLIA [id number] [address] [place] [address] [place] URINALYSIS, REFLEX MICROSCOP ICon 07-27-2023 Bilirubin Ql (U) Negative Negative [facility] Clarity (Unsp spec) Clear Clear [facility] Color (U) Light Yellow Yellow [facility] Epithelial cells LM.HPF (Urine sed) [#/Area] Few /HPF [facility] Glucose Test strip (U) [Mass/Vol] Negative Trace, Negative [facility] Hemoglobin Ql (U) 1+ Abnormal Negative, Trace [facility] Interpretation and review of laboratory results Abnormal [facility] Ketones Ql (U) Negative Negative, Trace [facility] Leukocyte esterase Test strip Ql (U) 25 Luis/uL Negative, 25 Luis/uL [facility] Nitrite Ql (U) Negative Negative [facility] pH (U) 5.0 [pH] 5.0 - 8.0 [facility] Protein (U) [Mass/Vol] Negative Trace, Negative [facility] RBC LM.HPF (Urine sed) [#/Area] 3-5 /HPF Abnormal 0-3 /HPF [facility] Specific gravity (U) [Rel density] 1.016 1.005 - 1.030 [facility] [facility] Urobilinogen Ql (U) Normal Normal [facility] WBC LM.HPF (Urine sed) [#/Area] 0-5 /HPF 0-5 /HPF [facility] CREATININE BLDOrdered By: Aaron Fregoso on 07-12-2023 Creatinine [Mass/Vol] 0.69 mg/dL 0.58 - 0.96 mg/dL [facility] GFR/1.73 sq M.predicted among non-blacks MDRD (S/P/Bld) [Vol rate/Area] 88 mL/min/{1.73_m2} - PINF [facility] Comment on above: Estimated Glomerular Filtration Rate [...] Interpretation and review of laboratory results Normal [facility] CT KIDNEY WO/W IVCONon 11-04 [facility] CBC W Auto Differential pane l (Bld)on 10-21-2022 Basophils (Bld) [#/Vol] 0.06 10*3/uL <0.11 k/uL [facility] Basophils/100 WBC (Bld) 1.2 % [facility] Differential cell count method Nom (Bld) Auto [facility] Eosinophils (Bld) [#/Vol] 0.19 10*3/uL <0.46 k/uL [facility] Eosinophils/100 WBC (Bld) 3.9 % [facility] Erythrocyte distribution width (RBC) [Ratio] 13.7 % 11.5 - 15.0 % [facility] Hematocrit (Bld) [Volume fraction] 44.9 % 36.0 - 46.0 % [facility] Hemoglobin (Bld) [Mass/Vol] 13.7 g/dL 11.5 - 15.5 g/dL [facility] Immature granulocytes (Bld) [#/Vol] <0.10 k/uL [facility] Immature granulocytes/100 WBC (Bld) 0.4 % [facility] Lymphocytes (Bld) [#/Vol] 1.29 10*3/uL 1.00 - 4.00 k/uL [facility] Lymphocytes/100 WBC (Bld) 26.5 % [facility] MCH (RBC) [Entitic mass] 27.1 pg 26.0 - 34.0 pg [facility] MCHC (RBC) [Mass/Vol] 30.5 g/dL 30.5 - 36.0 g/dL [facility] MCV (RBC) [Entitic vol] 88.9 fL 80.0 - 100.0 fL [facility] Monocytes (Bld) [#/Vol] 0.79 10*3/uL <0.87 k/uL [facility] Monocytes/100 WBC (Bld) 16.2 % [facility] Neutrophils (Bld) [#/Vol] 2.52 10*3/uL 1.45 - 7.50 k/uL [facility] Neutrophils/100 WBC (Bld) 51.8 % [facility] Nucleated RBC (Bld) [#/Vol] <0.01 k/uL [facility] Nucleated RBC/100 WBC (Bld) [Ratio] 0.0 /100 WBC [facility] Platelet mean volume (Bld) [Entitic vol] 11.7 fL 9.0 - 12.7 fL [facility] Platelets (Bld) [#/Vol] 210 10*3/uL 150 - 400 k/uL [facility] RBC (Bld) [#/Vol] 5.05 10*6/uL 3.90 - 5.2 0 m/uL [facility] WBC (Bld) [#/Vol] 4.87 10*3/uL 3.70 - 11. 00 k/uL [facility] CBC W Auto Differential pane l (Bld)on 09-27-2022 Basophils (Bld) [#/Vol] 0.03 10*3/uL <0.11 k/uL [facility] Basophils/100 WBC (Bld) 0.3 % [facility] Differential cell count method Nom (Bld) Auto [facility] Eosinophils (Bld) [#/Vol] 0.03 10*3/uL <0.46 k/uL [facility] Eosinophils/100 WBC (Bld) 0.3 % [facility] Erythrocyte distribution width (RBC) [Ratio] 13.6 % 11.5 - 15.0 % [facility] Hematocrit (Bld) [Volume fraction] 41.7 % 36.0 - 46.0 % [facility] Hemoglobin (Bld) [Mass/Vol] 13.2 g/dL 11.5 - 15.5 g/dL [facility] Immature granulocytes (Bld) [#/Vol] 0.08 10*3/uL <0.10 k/uL [facility] Immature granulocytes/100 WBC (Bld) 0.8 % [facility] Lymphocytes (Bld) [#/Vol] 1.70 10*3/uL 1.00 - 4.00 k/uL [facility] Lymphocytes/100 WBC (Bld) 16.4 % [facility] MCH (RBC) [Entitic mass] 27.3 pg 26.0 - 34.0 pg [facility] MCHC (RBC) [Mass/Vol] 31.7 g/dL 30.5 - 36.0 g/dL [facility] MCV (RBC) [Entitic vol] 86.2 fL 80.0 - 100.0 fL [facility] Monocytes (Bld) [#/Vol] 1.09 10*3/uL High <0.87 k/uL [facility] Monocytes/100 WBC (Bld) 10.5 % [facility] Neutrophils (Bld) [#/Vol] 7.44 10*3/uL 1.45 - 7.50 k/uL [facility] Neutrophils/100 WBC (Bld) 71.7 % [facility] Nucleated RBC (Bld) [#/Vol] <0.01 k/uL [facility] Nucleated RBC/100 WBC (Bld) [Ratio] 0.0 /100 WBC [facility] Platelet mean volume (Bld) [Entitic vol] 10.5 fL 9.0 - 12.7 fL [facility] Platelets (Bld) [#/Vol] 268 10*3/uL 150 - 400 k/uL [facility] RBC (Bld) [#/Vol] 4.84 10*6/uL 3.90 - 5.2 0 m/uL [facility] WBC (Bld) [#/Vol] 10.37 10*3/uL 3.70 - 11 .00 k/uL [facility] CBC W Ordered Manual Differe ntial panel (Bld)on 09-27-2022 Basophils (Bld) [#/Vol] 0.03 10*3/uL <0.11 k/uL [facility] Basophils/100 WBC (Bld) 0.3 % [facility] Differential cell count method Nom (Bld) Auto [facility] Eosinophils (Bld) [#/Vol] 0.04 10*3/uL <0.46 k/uL [facility] Eosinophils/100 WBC (Bld) 0.4 % [facility] Erythrocyte distribution width (RBC) [Ratio] 13.6 % 11.5 - 15.0 % [facility] Hematocrit (Bld) [Volume fraction] 41.2 % 36.0 - 46.0 % [facility] Hemoglobin (Bld) [Mass/Vol] 13.0 g/dL 11.5 - 15.5 g/dL [facility] Immature granulocytes (Bld) [#/Vol] 0.07 10*3/uL <0.10 k/uL [facility] Immature granulocytes/100 WBC (Bld) 0.7 % [facility] Lymphocytes (Bld) [#/Vol] 1.72 10*3/uL 1.00 - 4.00 k/uL [facility] Lymphocytes/100 WBC (Bld) 16.7 % [facility] MCH (RBC) [Entitic mass] 27.3 pg 26.0 - 34.0 pg [facility] MCHC (RBC) [Mass/Vol] 31.6 g/dL 30.5 - 36.0 g/dL [facility] MCV (RBC) [Entitic vol] 86.4 fL 80.0 - 100.0 fL [facility] Monocytes (Bld) [#/Vol] 1.10 10*3/uL High <0.87 k/uL [facility] Monocytes/100 WBC (Bld) 10.6 % [facility] Neutrophils (Bld) [#/Vol] 7.37 10*3/uL 1.45 - 7.50 k/uL [facility] Neutrophils/100 WBC (Bld) 71.3 % [facility] Nucleated RBC (Bld) [#/Vol] <0.01 k/uL [facility] Nucleated RBC/100 WBC (Bld) [Ratio] 0.0 /100 WBC [facility] Platelet mean volume (Bld) [Entitic vol] 11.0 fL 9.0 - 12.7 fL [facility] Platelets (Bld) [#/Vol] 255 10*3/uL 150 - 400 k/uL [facility] RBC (Bld) [#/Vol] 4.77 10*6/uL 3.90 - 5.2 0 m/uL [facility] WBC (Bld) [#/Vol] 10.33 10*3/uL 3.70 - 11 .00 k/uL [facility] CT ABD/PEL W IVCONon 09-26-[address] ABD/PEL W IVCON * * *Final Report* * * DATE OF EXAM: Sep 26 2022 12:59PM [facility] 0530 - CT ABD/PEL W IVCON / [...] lung bases are clear. Bases are clear. Wetlands Technician (topogram) images: No significant additional findings. IMPRESSION: [...] hiatal hernia. Diverticulosis of the sigmoid colon. Color Depositing Machine Tender: SAAD Transcribe Date/Time: Sep 26 2022 1:14P Dictated by : SHIELA CARROLL MD This examination was interpreted and the report reviewed and electronically signed by: SHIELA CARROLL MD on Sep 26 2022 1:25PM EST [id number] Normal [facility] - Urinalysison Epithelial cells LM.HPF (Urine sed) [#/Area] Few Abnormal None Seen /HPF [facility] URINALYSIS, REFLEX MICROSCOP ICon 06-29-2022 Bilirubin Ql (U) Negative Negative [facility] Clarity (Unsp spec) Clear Clear [facility] Color (U) Light Yellow Yellow [facility] Glucose Test strip (U) [Mass/Vol] Negative Trace, Negative [facility] Hemoglobin Ql (U) 2+ Abnormal Negative, Trace [facility] Hyaline casts (Urine sed) [#/Area] 1-3 /LPF Abnormal 0 /LPF [facility] Ketones Ql (U) Negative Trace, Negative [facility] Leukocyte esterase Test strip Ql (U) 75 Luis/uL Abnormal Negative, 25 Luis/uL [facility] Nitrite Ql (U) Negative Negative [facility] pH (U) 5.5 [pH] 5.0 - 8.0 [facility] Protein (U) [Mass/Vol] Negative Trace, Negative [facility] RBC LM.HPF (Urine sed) [#/Area] 0-3 /HPF 0-3 /HPF [facility] Specific gravity (U) [Rel density] 1.018 1.005 - 1.030 [facility] Urobilinogen Ql (U) Negative Negative [facility] WBC LM.HPF (Urine sed) [#/Area] 0-5 /HPF 0-5 /HPF [facility] NUC 3 PHASE LIMITED BONE SCA Non [...] to suggest complication of hardware placement. Normal [facility] MRI HIP LEFT WITHOUT CONTRAS Ton 06-24-2022 MRI HIP LEFT WITHOUT CONTRAST EXAM: MRI HIP LEFT WITHOUT CONTRAST REASON FOR EXAM: Left hip pain, status post arthroplasty. TECHNIQUE: Multiplanar, multisequence imaging of the left hip was performed without contrast COMPARISON: Plain radiograph 06/09/2022. FINDINGS: On small [id number] imaging of the left hip, there is [...] muscle strain or tendon tear. On large [id number] imaging, at least moderate degenerative disc disease [...] atrophy. 6. Moderate bilateral sacroiliac osteoarthritis. Normal [facility] US ABDOMEN COMPLETEon 2022 [facility] URINALYSIS, REFLEX MICROSCOP ICon 06-02-2022 Bilirubin Ql (U) Negative Negative [facility] Clarity (Unsp spec) Clear Clear [facility] Color (U) Light Yellow Yellow [facility] Epithelial cells LM.HPF (Urine sed) [#/Area] Few [facility] Glucose Test strip (U) [Mass/Vol] Negative Trace, Negative [facility] Hemoglobin Ql (U) 1+ Abnormal Negative, Trace [facility] Ketones Ql (U) Negative Negative, Trace [facility] Leukocyte esterase Test strip Ql (U) 75 Luis/uL Abnormal Negative, 25 Luis/uL [facility] Nitrite Ql (U) Negative Negative [facility] pH (U) 5.0 [pH] 5.0 - 8.0 [facility] Protein (U) [Mass/Vol] Negative Trace, Negative [facility] RBC LM.HPF (Urine sed) [#/Area] 3-5 /HPF Abnormal 0-3 /HPF [facility] Specific gravity (U) [Rel density] 1.014 1.005 - 1.030 [facility] Urobilinogen Ql (U) Negative Negative [facility] WBC LM.HPF (Urine sed) [#/Area] 0-5 /HPF 0-5 /HPF [facility] XR Abdomen Supine and Uprigh ton 05-06-2022 IMPRESSION: No acute pathology. 4 mm calcification overlying the lower pole of the right kidney could represent a renal calculus. Color Depositing Machine Tender: [facility] Transcribe Date/Time: May 06 2022 7:54A Dictated by : KP PEPPER MD This examination was interpreted and the report reviewed and electronically signed by: KP PEPPER MD on May 06 2022 7:56AM [facility] DIVISION OF RADIOLOGY * * *Final Report* [...] Left hip prosthesis. DIVISION OF RADIOLOGY Provider, [facility] - 05/06/2022 * * *Final Report* [...] right kidney could represent a renal calculus. Color Depositing Machine Tender: SAAD Transcribe Date/Time: May 06 2022 7:54A Dictated by : KP PEPPER MD This examination was interpreted and the report reviewed and electronically signed by: KP PEPPER MD on May 06 2022 7:56AM EST [facility] XR Abdomen Supine and Uprigh tOrdered By: [facility] Provider on 05-06-2022 [facility] XR Abdomen Supine and Uprigh ton 05-03-2022 Radiology Study observation (narrative) [facility] MATT SCREENINGon 01-05-2022 [facility] Comprehensive metabolic 2000 panelon 07-14-2021 Albumin [Mass/Vol] 4.2 g/dL 3.9 - 4.9 g/dL [facility] ALP [Catalytic activity/Vol] 141 U/L High 34 - 123 U/L [facility] ALT [Catalytic activity/Vol] 19 U/L 7 - 38 U/L [facility] Anion gap [Moles/Vol] 12 mmol/L 9 - 18 mmol/L [facility] AST [Catalytic activity/Vol] 29 U/L 13 - 35 U/L [facility] Bilirubin [Mass/Vol] 0.4 mg/dL 0.2 - 1.3 mg/dL [facility] Calcium [Mass/Vol] 9.8 mg/dL 8.5 - 10.2 mg/dL [facility] Chloride [Moles/Vol] 102 mmol/L 97 - 105 mmol/L [facility] CO2 [Moles/Vol] 28 mmol/L 22 - 30 mmol/L [facility] Creatinine [Mass/Vol] 0.81 mg/dL 0.58 - 0.96 mg/dL [facility] Estimated Glomerular Filtration Rate 74 mL/min/1.73m >=60 mL/min/1.73m [facility] Glucose [Mass/Vol] 95 mg/dL 74 - 99 mg/dL [facility] Potassium [Moles/Vol] 4.2 mmol/L 3.7 - 5.1 mmol/L [facility] Protein [Mass/Vol] 7.6 g/dL 6.3 - 8.0 g/dL [facility] Sodium [Moles/Vol] 142 mmol/L 136 - 144 mmol/L [facility] Urea nitrogen [Mass/Vol] 21 mg/dL 7 - 21 mg/dL [facility] FERRITIN Don 07-14-2021 Ferritin [Mass/Vol] 40.1 ng/mL 14.7 - 205.1 ng/mL [facility] IRON + TIBCon 07-14-2021 Iron [Mass/Vol] 26 ug/dL Low 41 - 186 ug/dL [facility] Iron binding capacity [Mass/Vol] 368 ug/dL 232 - 386 ug/dL [facility] Iron/TIBC [Molar ratio] 7 % Low 15 - 57 % [facility] TSH BLDon 07-14-2021 TSH Qn 2.070 m[IU]/L 0.270 - 4.200 mIU/L [facility] CBC W Auto Differential pane l (Bld)on 07-13-2021 Abs Immature Gran <0.03 <0.10 k/uL [facility] Basophils (Bld) [#/Vol] 0.04 10*3/uL <0.11 k/uL [facility] Basophils/100 WBC (Bld) 0.7 % [facility] Differential cell count method Nom (Bld) Auto [facility] Eosinophils (Bld) [#/Vol] 0.16 10*3/uL <0.46 k/uL [facility] Eosinophils/100 WBC (Bld) 3.0 % [facility] Erythrocyte distribution width (RBC) [Ratio] 14.1 % 11.5 - 15.0 % [facility] Hematocrit (Bld) [Volume fraction] 45.0 % 36.0 - 46.0 % [facility] Hemoglobin (Bld) [Mass/Vol] 13.2 g/dL 11.5 - 15.5 g/dL [facility] Immature Gran % 0.4 % [facility] Lymphocytes (Bld) [#/Vol] 1.20 10*3/uL 1.00 - 4.00 k/uL [facility] Lymphocytes/100 WBC (Bld) 22.5 % [facility] MCH (RBC) [Entitic mass] 23.9 pg Low 26.0 - 34.0 pg [facility] MCHC (RBC) [Mass/Vol] 29.3 g/dL Low 30.5 - 36.0 g/dL [facility] MCV (RBC) [Entitic vol] 81.4 fL 80.0 - 100.0 fL [facility] Monocytes (Bld) [#/Vol] 0.73 10*3/uL <0.87 k/uL [facility] Monocytes/100 WBC (Bld) 13.7 % [facility] Neutrophils (Bld) [#/Vol] 3.19 10*3/uL 1.45 - 7.50 k/uL [facility] Neutrophils/100 WBC (Bld) 59.7 % [facility] Nucleated RBC (Bld) [#/Vol] 10*3/uL <0.01 k/uL [facility] Nucleated RBC/100 WBC (Bld) [Ratio] 0.0 /100 WBC [facility] Platelet mean volume (Bld) [Entitic vol] 11.0 fL 9.0 - 12.7 fL [facility] Platelets (Bld) [#/Vol] 249 10*3/uL 150 - 400 k/uL [facility] RBC (Bld) [#/Vol] 5.53 10*6/uL High 3.90 - 5.2 0 m/uL [facility] WBC (Bld) [#/Vol] 5.34 10*3/uL 3.70 - 11. 00 k/uL [facility] HGB A1Con 07-13-2021 Average glucose Estimated from glycated hemoglobin (Bld) [Mass/Vol] 111 mg/dL [facility] HbA1c (Bld) [Mass fraction] 5.5 % 4.3 - 5.6 % [facility] Urinalysis complete panel (U )on 07-13-2021 Bilirubin Ql (U) Negative Negative [facility] Clarity (Unsp spec) Clear Clear [facility] Color (U) Light Yellow Yellow [facility] Glucose Test strip (U) [Mass/Vol] Negative Negative [facility] Hemoglobin Ql (U) 1+ Abnormal Negative [facility] Ketones Ql (U) Negative Negative [facility] Leukocyte esterase Test strip Ql (U) Negative Negative [facility] Nitrite Ql (U) Negative Negative [facility] pH (U) 6.0 [pH] 5.0 - 8.0 [facility] Protein (U) [Mass/Vol] Negative Negative [facility] RBC LM.HPF (Urine sed) [#/Area] 0-3 /HPF 0-3 /HPF [facility] Specific gravity (U) [Rel density] 1.012 1.005 - 1.030 [facility] Urobilinogen Ql (U) Negative Negative [facility] WBC LM.HPF (Urine sed) [#/Area] 0-5 /HPF 0-5 /HPF [facility] CBC W Auto Differential pane l (Bld)on 05-13-2021 Abs Immature Gran 0.06 k/uL <0.10 k/uL [facility] Basophils (Bld) [#/Vol] 0.03 10*3/uL <0.11 k/uL [facility] Basophils/100 WBC (Bld) 0.5 % [facility] Differential cell count method Nom (Bld) Auto [facility] Eosinophils (Bld) [#/Vol] 0.11 10*3/uL <0.46 k/uL [facility] Eosinophils/100 WBC (Bld) 1.7 % [facility] Erythrocyte distribution width (RBC) [Ratio] 15.5 % High 11.5 - 15.0 % [facility] Hematocrit (Bld) [Volume fraction] 23.3 % Low 36.0 - 46.0 % [facility] Hemoglobin (Bld) [Mass/Vol] 6.9 g/dL Low 11.5 - 15.5 g/dL [facility] Immature Gran % 0.9 % [facility] Lymphocytes (Bld) [#/Vol] 1.44 10*3/uL 1.00 - 4.00 k/uL [facility] Lymphocytes/100 WBC (Bld) 22.5 % [facility] MCH (RBC) [Entitic mass] 27.5 pg 26.0 - 34.0 pg [facility] MCHC (RBC) [Mass/Vol] 29.6 g/dL Low 30.5 - 36.0 g/dL [facility] MCV (RBC) [Entitic vol] 92.8 fL 80.0 - 100.0 fL [facility] Monocytes (Bld) [#/Vol] 0.84 10*3/uL <0.87 k/uL [facility] Monocytes/100 WBC (Bld) 13.1 % [facility] Neutrophils (Bld) [#/Vol] 3.93 10*3/uL 1.45 - 7.50 k/uL [facility] Neutrophils/100 WBC (Bld) 61.3 % [facility] Nucleated RBC (Bld) [#/Vol] 10*3/uL <0.01 k/uL [facility] Nucleated RBC/100 WBC (Bld) [Ratio] 0.0 /100 WBC [facility] Platelet mean volume (Bld) [Entitic vol] 10.6 fL 9.0 - 12.7 fL [facility] Platelets (Bld) [#/Vol] 276 10*3/uL 150 - 400 k/uL [facility] RBC (Bld) [#/Vol] 2.51 10*6/uL Low 3.90 - 5.2 0 m/uL [facility] WBC (Bld) [#/Vol] 6.41 10*3/uL 3.70 - 11. 00 k/uL [facility] Comprehensive metabolic 2000 panelon 05-13-2021 Albumin [Mass/Vol] 3.4 g/dL Low 3.9 - 4.9 g/dL [facility] ALP [Catalytic activity/Vol] 82 U/L 34 - 123 U/L [facility] ALT [Catalytic activity/Vol] 22 U/L 7 - 38 U/L [facility] Anion gap [Moles/Vol] 10 mmol/L 9 - 18 mmol/L [facility] AST [Catalytic activity/Vol] 24 U/L 13 - 35 U/L [facility] Bilirubin [Mass/Vol] 0.3 mg/dL 0.2 - 1.3 mg/dL [facility] Calcium [Mass/Vol] 8.7 mg/dL 8.5 - 10.2 mg/dL [facility] Chloride [Moles/Vol] 109 mmol/L High 97 - 105 mmol/L [facility] CO2 [Moles/Vol] 24 mmol/L 22 - 30 mmol/L [facility] Creatinine [Mass/Vol] 1.29 mg/dL High 0.58 - 0.96 mg/dL [facility] Estimated Glomerular Filtration Rate 43 mL/min/1.73m Low >=60 mL/min/1.73m [facility] Glucose [Mass/Vol] 142 mg/dL High 74 - 99 mg/dL [facility] Potassium [Moles/Vol] 4.1 mmol/L 3.7 - 5.1 mmol/L [facility] Protein [Mass/Vol] 5.9 g/dL Low 6.3 - 8.0 g/dL [facility] Sodium [Moles/Vol] 143 mmol/L 136 - 144 mmol/L [facility] Urea nitrogen [Mass/Vol] 32 mg/dL High 7 - 21 mg/dL [facility] FERRITIN BLDon 05-13-2021 Ferritin [Mass/Vol] 30.7 ng/mL 14.7 - 205.1 ng/mL [facility] IRON + TIBCon 05-13-2021 Iron [Mass/Vol] 13 ug/dL Low 41 - 186 ug/dL [facility] Iron binding capacity [Mass/Vol] 347 ug/dL 232 - 386 ug/dL [facility] Iron/TIBC [Molar ratio] 4 % Low 15 - 57 % [facility] No Panel Informationon 08-04 Radiology Study observation (narrative) [facility] XR HIP BILAT 5V PEL/AP/LAT E ACH HIPon 08-04-2020 IMPRESSION: 1. Status post total left hip replacement. 2. Mild right hip joint space narrowing. Color Depositing Machine Tender: SAAD Transcribe Date/Time: Aug 04 2020 12:15P Dictated by : NIMA HESS MD This examination was interpreted and the report reviewed and electronically signed by: NIMA HESS MD on Aug 04 2020 1:09PM [facility] DIVISION OF RADIOLOGY * * *Final Report* [...] 2. Mild right hip joint space narrowing. Color Depositing Machine Tender[facility] Trans[facility] Date/Time: Aug 04 2020 12:15P Dictated by : NIMA HESS MD This examination was interpreted and the report reviewed and electronically signed by: NIMA HESS MD on Aug 04 2020 1:09PM [facility] XR Lumbar spine 3 Viewson IMPRESSION: Spondylosis of the lumbar spine. Grade 1 anterolisthesis of L5 on S1.. Color Depositing Machine Tender: SAAD Transcribe Date/Time: Aug 04 2020 1:11P Dictated by : KERRY KOWALSKI MD This examination was interpreted and the report reviewed and electronically signed by: KERRY KOWALSKI MD on Aug 04 2020 1:13PM [facility] DIVISION OF RADIOLOGY * * *Final Report* [...] appearance. DIVISION OF RADIOLOGY Provider, Kervin Rios [facility] - 08/04/2020 * * *Final Report* [...] Grade 1 anterolisthesis of L5 on S1.. Color Depositing Machine Tender: PSCB Transcribe Date/Time: Aug 04 2020 1:11P Dictated by : KERRY KOWALSKI MD This examination was interpreted and the report reviewed and electronically signed by: KERRY KOWALSKI MD on Aug 04 2020 1:13PM EST [facility] XR Lumbar spine 3 ViewsOrder ed By: [facility] Provider on 08-04-2020 [facility] CNCOon 06-22-2018 CNCO Letter Text Normal [facility] Basic Metabolic Panlon 06-20 Anion gap molar conc 10 mmol/L Normal 0-15 [facility] Calcium mass conc 8.9 mg/dL Normal 8.5-10.5 [facility] Chloride molar conc 106 mmol/L Normal 98-110 [facility] CO2 molar conc 26 mmol/L Normal 23-32 [facility] Creatinine mass conc 0.65 mg/dL Low 0.7-1.4 [facility] Glucose mass conc 149 mg/dL High 65-100 [facility] Potassium molar conc 4.1 mmol/L Normal 3.5-5.0 [facility] Sodium molar conc 142 mmol/L Normal 132-148 [facility] Urea nitrogen mass conc 15 mg/dL Normal 8-25 [facility] CASE MANAGEMon 06-20-2018 CASE MANAGEM HNO ID: [id number] Author: Lawanda Mark (Sw) Service: Care Management Author Type: Urinalysis Technician Type: Care Mgt Progress Note Filed: 06/20/2018 [...] Care Physician: Dr Matias Phone Number: . [phone] () Md is pcp summary of care sent via [facility] Nurse to provide discharge instructions. TRANSPORTATION [...] 20, 2018 TIME: 10:22 AM PAGER/CONTACT #: [phone] [facility] CASE MGT INIT Hector 2018 CASE MGT INIT RODRICK HNO ID: [id number] Author: Lawanda Mark (Sw) Service: Care Management Author Type: Urinalysis Technician Type: Care Mgt Initial Assessment Filed: 06/20/2018 10:19 AM Note Text: CARE MANAGEMENT: ASSESSMENT AND DISCHARGE PLAN SERVICE DATE: 06/20/2018 SERVICE TIME: 9:45 AM PRIMARY CARE PHYSICIAN: Jagjit Matias DO ADMISSION STATUS: Inpatient Needs Prior to Discharge: Ready for Discharge MEDICAL: Patient/Facility Maintenance Helper Stated Goals: To improve my functional status Health Insurance: [employer] MEDICARE PPO None Health Issues Impacting Discharge Plan: Pt had total shoulder done on 06/20/18 Last Admission Date: none Is this Within the Past 30 days? No Advance Directive: Current Advance Directive: Health Care Power of [place] Upholsterer In Chart: No Health Literacy: 1. How [...] None Has the Patient Been in a Detention Facility in the Past 30 days? No SOCIAL: Living Arrangement: Home Lives With: Spouse Financial Resources: Retired Primary Contact: Extended Emergency Contact Information Primary Emergency Contact: Paul Castro Address: [address] [place] [id number] Mobile Relation: Spouse Secondary Emergency Contact: Zora [...] 0 I feel financially burdened by my [id number] expenses for my prescription medication: Disagree completely [...] 20, 2018 TIME: 10:15 AM PAGER/CONTACT #: [phone] [facility] CBCon 06-20-2018 Absolute nRBC <0.01 Normal <0.01 [facility] Erythrocyte distribution width Ratio (RBC) 14.6 % Normal 11.5-15.0 [facility] Hematocrit Volume Fraction (Bld) 39.7 % Normal 36.0-46.0 [facility] Hemoglobin mass conc (Bld) 11.9 g/dL Normal 11.5-15.5 [facility] MCH Entitic mass (RBC) 26.8 pG Normal 26.0-34.0 [facility] MCHC mass conc (RBC) 30.0 g/dL Low 30.5-36.0 [facility] MCV Entitic volume (RBC) 89.4 fL Normal 80.0-100.0 [facility] Platelet mean volume Entitic volume (Bld) 11.6 fL Normal 9.0-12.7 [facility] Platelets #/vol (Bld) 249 10*3/uL Normal 150-400 [facility] RBC #/vol (Bld) 4.44 10*6/uL Normal 3.90-5.20 [facility] WBC #/vol (Bld) 11.63 10*3/uL High 3.70-11.00 [facility] NURSING PROGon 06-20-2018 Protein mass conc HNO ID: [id number] Author: Parminder (Rn) TRUDY Vance Service: Nursing Author Type: Registered Nurse Type: Nursing Progress Note Filed: 06/20/2018 3:13 PM Note Text: Nursing Progress Note Patient Name: Letha Castro Patient Location: [facility]/ [place] Daily Note:Patient awake, no S/S of distress, [...] note was completed by: Parminder Vance RN [facility] PROGRESSon 06-20-2018 Protein mass conc HNO ID: [id number] Author: Aline Whalen Service: General Internal Medicine [...] of care with Dr. Noonan. Aline Whalen APRN.TECHNICAL SALES MANAGER June 20, 2018 10:22 AM Normal [facility] Protein mass conc HNO ID: [id number] Author: Derek Calderon Service: Orthopaedic Surgery Author [...] Lab: CBC, Coags, BMP, Mg, Phos Normal [facility] THERAPY NTon 06-20-2018 THERAPY NT HNO ID: [id number] Author: Melvi (Ot) Skylar Service: Occupational Therapy Author Type: Occupational Therapist Type: Therapy (PT/OT/Speech/Resp) Filed: 06/20/2018 12:06 PM Note Text: Occupational Therapy Treatment SERVICE DATE: 06/20/2018 SERVICE TIME: 1115 to 1147 ROOM: [address] Recommended Discharge Disposition: Home Anticipated Discharge [...] of daily living (ADL) Interventions Provided: Self Correction Management (59012) Self Correction Management (77901) Treatment Minutes: 32 2 units Skilled Intervention(s): [...] Patient Lives With: Spouse Assistance Available: multimedia project manager Entry To Home: Stairs;With Rail Number Of Stairs Into Home: 4 Number Of Stairs To Bed/Bath: 1 flight Stairs to Bed/Bath with: Unilateral Rail Tub/Shower Type: Tub Laundry: assistance available Equipment Owned: Grab Bars-Shower;Climatology Professor;Shower Chair Prior Functional Level: Within Functional Limits(Pt [...] DATE: June 20, 2018 TIME: 11:58 AM [facility] THERAPY NT HNO ID: [id number] Author: Melvi Geronimo Service: Occupational Therapy Author Type: Occupational Therapist Type: Therapy (PT/OT/Speech/Resp) Filed: 06/20/2018 10:08 AM Note Text: Occupational Therapy Evaluation SERVICE DATE: 06/20/2018 SERVICE TIME: 829 to 929 ROOM: [facility] FL-523-P Recommended Discharge Disposition: Home Anticipated Discharge [...] of daily living (ADL) Interventions Provided: Evaluation;Self Correction Management (96180) $ Evaluation-Low (22456) Billed Units: 1 unit Self Correction Management (02927) Treatment Minutes: 53 4 units Skilled Intervention(s): [...] Patient Lives With: Spouse Assistance Available: multimedia project manager Entry To Home: Stairs;With Rail Number Of Stairs Into Home: 4 Number Of Stairs To Bed/Bath: 1 flight Stairs to Bed/Bath with: Unilateral Rail Tub/Shower Type: Tub Laundry: assistance available Equipment Owned: Grab Bars-Shower;Climatology Professor;Shower Chair Prior Functional Level: Within Functional Limits(Pt [...] DATE: June 20, 2018 TIME: 9:58 AM [facility] ANES Juan José 06-19-2018 ANES POST HNO ID: [id number] Author: Brien Bethea Service: Anesthesiology Author Type: [...] 19, 2018 TIME: 4:40 PM PAGER/CONTACT #: [facility] ANES PREOPon 06-19-2018 ANES PREOP HNO ID: [id number] Author: Brien Bethea Service: Anesthesiology Author Type: [...] June 19, 2018 TIME: 10:57 AM CSN: [id number] [facility] BRIEF OP NOTon 06-19-2018 BRIEF OP NOT HNO ID: [id number] Author: Derek Calderon Service: Orthopaedic Surgery Author Type: Resident Type: Brief Op Note Filed: 06/19/2018 4:23 PM Note Text: BRIEF OP NOTE LOG ID: [id number] Surgery/Procedure Date: 06/19/2018 Incision/Procedure Start Time: 2:13 PM Incision Close/Procedure End Time: Surgeon(s)/Proceduralist(s) and Shoe Repair Cobbler(s): Surgeon(s) and Role: * Taylor Williamson - [...] 19, 2018 TIME: 3:50 PM PAGER/CONTACT #: [facility] CONSULTon 06-19-2018 CONSULT HNO ID: [id number] Author: Aline Whalen Service: General Internal Medicine [...] came in for eval because 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 Aline Whalen, EDGARDO.TECHNICAL SALES MANAGER June 19, 2018 5:08 PM Normal [facility] NURSING PROGon 06-19-2018 Protein mass conc HNO ID: [id number] Author: Laura (Rn) TRUDY Bess Service: Nursing Author Type: Registered Nurse Type: Nursing Progress Note Filed: 06/19/2018 8:47 PM Note Text: Nursing Progress Note Patient Name: Letha Castro Patient Location: [facility]/ [place] Daily Note: pt resting in bed. AANDOx3. [...] note was completed by: Laura Bess RN [facility] Protein mass conc HNO ID: [id number] Author: Janneth Bean (Rn) TRUDY Marie Service: ? Author Type: Registered Nurse Type: Nursing Progress Note Filed: 06/19/2018 6:11 PM Note Text: Nursing Progress Note Patient Name: Letha Castro Patient Location: [place] [address] Daily Note: Pt admitted to floor [...] note was completed by: Janneth Marie RN [facility] OPERATIVE NOon 06-19-2018 OPERATIVE NO HNO ID: [id number] Author: Taylor Williamson Service: Orthopaedic Surgery Author Type: Physician Type: Operative Report Filed: 06/19/2018 4:31 PM Note Text: [place] [address] [place] OPERATIVE REPORT NAME: Letha Ashley [facility] #: [id number] DATE: 06/19/2018 (2:13pm-3:42pm) AGE: 77 SURGEON 1: Taylor Williamson M.D. BACK PADDER: 1. Derek Calderon M.D. 2. Avis Mckeon OPERATION: Left reverse total shoulder arthroplasty, biceps tenodesis. ANESTHESIA: General anesthesia with regional interscalene nerve block for postoperative pain control. PREOPERATIVE DIAGNOSIS: Left shoulder primary glenohumeral osteoarthritis, rotator cuff tear. POSTOPERATIVE DIAGNOSIS: Left shoulder primary glenohumeral osteoarthritis, rotator cuff tear, ruptured long head of the biceps tendon. OPERATIVE INDICATIONS: The patient is a 77 year [id number] right-hand dominant white female who has a [...] none COMPLICATIONS: none apparent Taylor Williamson M.D. [facility] PT EDon 06-19-2018 PT ED HNO ID: [id number] Author: Sophie (Rn) TRUDY Up Service: Nursing [...] Signed By: Sophie Up RN In Department: [facility] SURGICAL SERVICES Normal [facility] XR SHOULDER 2V AP/TRUE AP LT on [...] Jun 19 2018 5:17PM EST [id number] Normal [facility] Confirm Blood Typeon 019 ABO/RH(D) Positive Normal [facility] NURSING PROGon 06-04-2018 Protein mass conc HNO ID: [id number] Author: Reyna (Rn) John, RN Service: ? [...] Chart Check completed. Reyna Lopez RN. Normal [facility] Type and SCR (30D)on 019 ABO/RH(D) Positive Normal [facility] HOSPon 04-10-2018 HOSP Patient:Letha Castro MRN: Height:5' [...] 46.0 36.0 Progress Notes (RADIO CT SCAN [facility]): Sammie Lutz 06/04/2018 12:25 PM Signed [...] Sammie Lutz June 04, 2018 12:25 PM [facility] PROGRESSon 10-10-2017 [facility] NOTES Normal [facility] XR SHOULDER LEFT MIN 2 VIEWS [...] moderate right osteoarthritis of the shoulders. Normal [facility] XR SHOULDER RIGHT MIN 2 VIEW [...] moderate right osteoarthritis of the shoulders. Normal [facility] Vital Signs Date Time Vital Sign Value Performing Clinician Myriam umana 10-07-2024 07:44-0400 Body height 158 cm Zumbl Work Phone: [facility] 10-07-2024 07:44-0400 Body mass index (BMI) [Ratio] 27.07 kg/m2 Jagjit Matias DO Work Phone: [facility] 10-07-2024 07:44-0400 Body temperature 97 [degF] Jagjit Matias DO Work Phone: [facility] 10-07-2024 07:44-0400 Body weight 67.59 kg Jagjit Matias DO Work Phone: [facility] 10-07-2024 07:44-0400 Diastolic blood pressure 82 mm[Hg] Jagjit Matias DO Work Phone: [facility] 10-07-2024 07:44-0400 Heart rate 60 /min Jagjit Matias DO Work Phone: [facility] 10-07-2024 07:44-0400 Respiratory rate 16 /min Jagjit Matias DO Work Phone: [facility] 10-07-2024 07:44-0400 Systolic blood pressure 150 mm[Hg] Jagjit Matias DO Work Phone: [facility] 07-10-2024 09:00-0400 Diastolic blood pressure 80 mm[Hg] Rocky Golias PT Work Phone: [facility] 07-10-2024 09:00-0400 Heart rate 65 /min Rocky Golias PT Work Phone: [facility] 07-10-2024 09:00-0400 Systolic blood pressure 137 mm[Hg] Rocky Golias PT Work Phone: [facility] 03-29-2024 12:13-0500 Body mass index (BMI) [Ratio] 27.98 kg/m2 Jagjit Matias DO Work Phone: [facility] 03-29-2024 12:13-0500 Body temperature 98.49 [degF] Jagjit Matias DO Work Phone: [facility] 03-29-2024 12:13-0500 Body weight 69.4 kg Jagjit Matias DO Work Phone: [facility] 03-29-2024 12:13-0500 Diastolic blood pressure 80 mm[Hg] Jagjit Matias DO Work Phone: [facility] 03-29-2024 12:13-0500 Heart rate 64 /min Jagjit Matias DO Work Phone: [facility] 03-29-2024 12:13-0500 Respiratory rate 20 /min Jagjit Matias DO Work Phone: [facility] 03-29-2024 12:13-0500 Systolic blood pressure 130 mm[Hg] Jagjit Matias DO Work Phone: [facility] 10-26-2023 09:00-0400 Body mass index (BMI) [Ratio] 27.14 kg/m2 Rick Salo MINE ENVIRONMENTAL ENGINEER.TECHNICAL SALES MANAGER Work Phone: [facility] 10-26-2023 09:00-0400 Body weight 67.31 kg Rick Salo MINE ENVIRONMENTAL ENGINEER.TECHNICAL SALES MANAGER Work Phone: [facility] 10-26-2023 09:00-0400 Diastolic blood pressure 80 mm[Hg] Rick Salo MINE ENVIRONMENTAL ENGINEER.TECHNICAL SALES MANAGER Work Phone: [facility] 10-26-2023 09:00-0400 Heart rate 74 /min Rick Salo MINE ENVIRONMENTAL ENGINEER.TECHNICAL SALES MANAGER Work Phone: [facility] 10-26-2023 09:00-0400 Respiratory rate 16 /min Rick Salo MINE ENVIRONMENTAL ENGINEER.TECHNICAL SALES MANAGER Work Phone: [facility] 10-26-2023 09:00-0400 SaO2% (BldA) [Mass fraction] 97 % Rick Salo MINE ENVIRONMENTAL ENGINEER.TECHNICAL SALES MANAGER Work Phone: [facility] 10-26-2023 09:00-0400 Systolic blood pressure 132 mm[Hg] Rick Salo MINE ENVIRONMENTAL ENGINEER.TECHNICAL SALES MANAGER Work Phone: [facility] 08-21-2023 09:36-0400 Body mass index (BMI) [Ratio] 27.25 kg/m2 Jagjit Matias DO Work Phone: [facility] 08-21-2023 09:36-0400 Body temperature 97 [degF] Jagjit Matias DO Work Phone: [facility] 08-21-2023 09:36-0400 Body weight 67.59 kg Jagjit Matias DO Work Phone: [facility] 08-21-2023 09:36-0400 Diastolic blood pressure 80 mm[Hg] Jagjit Matias DO Work Phone: [facility] 08-21-2023 09:36-0400 Heart rate 64 /min Jagjit Matias DO Work Phone: [facility] 08-21-2023 09:36-0400 Respiratory rate 16 /min Jagjit Matias DO Work Phone: [facility] 08-21-2023 09:36-0400 Systolic blood pressure 120 mm[Hg] Jagjit Matias DO Work Phone: [facility] 05-05-2023 10:53-0500 Body temperature 98.1 [degF] Jagjit Matias DO Work Phone: [facility] 05-05-2023 10:53-0500 Body weight 68.04 kg Jagjit Matias DO Work Phone: [facility] 05-05-2023 10:53-0500 Diastolic blood pressure 70 mm[Hg] Jagjit Matias DO Work Phone: [facility] 05-05-2023 10:53-0500 Heart rate 80 /min Jagjit Matias DO Work Phone: [facility] 05-05-2023 10:53-0500 Respiratory rate 20 /min Jagjit Matias DO Work Phone: [facility] 05-05-2023 10:53-0500 Systolic blood pressure 124 mm[Hg] Jagjit Matias DO Work Phone: [facility] 10-21-2022 09:20-0400 Body weight 70.67 kg Rick Leong APRN.TECHNICAL SALES MANAGER Work Phone: [facility] 10-21-2022 09:20-0400 Diastolic blood pressure 82 mm[Hg] Rick Salo MINE ENVIRONMENTAL ENGINEER.TECHNICAL SALES MANAGER Work Phone: [facility] 10-21-2022 09:20-0400 Heart rate 69 /min Rick Leong MINE ENVIRONMENTAL ENGINEER.TECHNICAL SALES MANAGER Work Phone: [facility] 10-21-2022 09:20-0400 Respiratory rate 16 /min Rick Leong MINE ENVIRONMENTAL ENGINEER.TECHNICAL SALES MANAGER Work Phone: [facility] 10-21-2022 09:20-0400 SaO2% (BldA) [Mass fraction] 97 % Rick Leong MINE ENVIRONMENTAL ENGINEER.TECHNICAL SALES MANAGER Work Phone: [facility] 10-21-2022 09:20-0400 Systolic blood pressure 140 mm[Hg] Rick Leong MINE ENVIRONMENTAL ENGINEER.TECHNICAL SALES MANAGER Work Phone: [facility] 08-11-2022 13:04-0400 Body height 154.9 cm Frank Plata MD Work Phone: [facility] 08-11-2022 13:04-0400 Body mass index (BMI) [Ratio] 29.7 kg/m2 Frank Plata MD Work Phone: [facility] 08-11-2022 13:04-0400 Body temperature 97.5 [degF] Frank Plata MD Work Phone: [facility] 08-11-2022 13:04-0400 Body weight 71.31 kg Frank Plata MD Work Phone: [facility] 07-21-2022 13:18-0400 Body weight 70.31 kg Gunneropher Weight M D Work Phone: [facility] 07-11-2022 08:29-0400 Body temperature 97 [degF] Jagjit Matias DO Work Phone: [facility] 07-11-2022 08:29-0400 Body weight 70.31 kg Jagjit Matias DO Work Phone: [facility] 07-11-2022 08:29-0400 Diastolic blood pressure 88 mm[Hg] Jagjit Matias DO Work Phone: [facility] 07-11-2022 08:29-0400 Heart rate 76 /min Jagjit Matias DO Work Phone: [facility] 07-11-2022 08:29-0400 Respiratory rate 16 /min Jagjit Matias DO Work Phone: [facility] 07-11-2022 08:29-0400 Systolic blood pressure 146 mm[Hg] Jagjit Matias DO Work Phone: [facility] 06-29-2022 14:09-0400 Body height 157.5 cm Pac 9 Work Phone: [facility] 06-29-2022 14:09-0400 Body temperature 98.71 [degF] Pac 9 Work Phone: [facility] 06-29-2022 14:09-0400 Body weight 70.31 kg Pac 9 Work Phone: [facility] 06-29-2022 14:09-0400 Diastolic blood pressure 83 mm[Hg] Pac 9 Work Phone: [facility] 06-29-2022 14:09-0400 Heart rate 78 /min Pac 9 Work Phone: [facility] 06-29-2022 14:09-0400 SaO2% (BldA) [Mass fraction] 96 % Pac 9 Work Phone: [facility] 06-29-2022 14:09-0400 Systolic blood pressure 148 mm[Hg] Pac 9 Work Phone: [facility] 06-29-2022 13:01-0400 Diastolic blood pressure 81 mm[Hg] Anasua Bandyopadhyay PA Work Phone: [facility] 06-29-2022 13:01-0400 Heart rate 72 /min Anasua Bandyopadhyay PA Work Phone: [facility] 06-29-2022 13:01-0400 Systolic blood pressure 149 mm[Hg] Anasua Bandyopadhyay PA Work Phone: [facility] 06-10-2022 13:28-0400 Body weight 71.4 kg Rick Salo MINE ENVIRONMENTAL ENGINEER.TECHNICAL SALES MANAGER Work Phone: [facility] 06-10-2022 13:28-0400 Diastolic blood pressure 80 mm[Hg] Rick Salo MINE ENVIRONMENTAL ENGINEER.TECHNICAL SALES MANAGER Work Phone: [facility] 06-10-2022 13:28-0400 Heart rate 78 /min Rick Salo MINE ENVIRONMENTAL ENGINEER.TECHNICAL SALES MANAGER Work Phone: [facility] 06-10-2022 13:28-0400 Respiratory rate 16 /min Rick Salo MINE ENVIRONMENTAL ENGINEER.TECHNICAL SALES MANAGER Work Phone: [facility] 06-10-2022 13:28-0400 SaO2% (BldA) [Mass fraction] 98 % Rick Salo MINE ENVIRONMENTAL ENGINEER.TECHNICAL SALES MANAGER Work Phone: [facility] 06-10-2022 13:28-0400 Systolic blood pressure 122 mm[Hg] Rcik Salo MINE ENVIRONMENTAL ENGINEER.TECHNICAL SALES MANAGER Work Phone: [facility] 06-09-2022 11:03-0400 Body height 160 cm Frank Plata MD Work Phone: [facility] 06-09-2022 11:03-0400 Body mass index (BMI) [Ratio] 27.63 kg/m2 Frank Plata MD Work Phone: [facility] 06-09-2022 11:03-0400 Body weight 70.76 kg Frank Plata MD Work Phone: [facility] 06-02-2022 14:33-0400 Body height 154.9 cm Christopher Weight M D Work Phone: [facility] 06-02-2022 14:33-0400 Body weight 71.65 kg Christopher Weight M D Work Phone: [facility] 06-02-2022 14:33-0400 Diastolic blood pressure 90 mm[Hg] Skylar Smith MD Work Phone: [facility] 06-02-2022 14:33-0400 Heart rate 81 /min Christopher Weight M D Work Phone: [facility] 06-02-2022 14:33-0400 Systolic blood pressure 167 mm[Hg] Skylar Smith MD Work Phone: [facility] 05-03-2022 11:00-0500 Body weight 71.22 kg Ria Gunter MINE ENVIRONMENTAL ENGINEER.TECHNICAL SALES MANAGER Work Phone: [facility] 05-03-2022 11:00-0500 Diastolic blood pressure 80 mm[Hg] Ria Gunter MINE ENVIRONMENTAL ENGINEER.TECHNICAL SALES MANAGER Work Phone: [facility] 05-03-2022 11:00-0500 Heart rate 82 /min Ria Gunter MINE ENVIRONMENTAL ENGINEER.TECHNICAL SALES MANAGER Work Phone: [facility] 05-03-2022 11:00-0500 Respiratory rate 14 /min Ria Gunter MINE ENVIRONMENTAL ENGINEER.TECHNICAL SALES MANAGER Work Phone: [facility] 05-03-2022 11:00-0500 Systolic blood pressure 138 mm[Hg] Ria Gunter MINE ENVIRONMENTAL ENGINEER.TECHNICAL SALES MANAGER Work Phone: [facility] 12-15-2021 13:39-0400 Body height 155 cm Jagjit Matias DO Work Phone: [facility] 12-15-2021 13:39-0400 Body temperature 97.3 [degF] Jagjit Matias DO Work Phone: [facility] 12-15-2021 13:39-0400 Body weight 69.85 kg Jagjit Matias DO Work Phone: [facility] 12-15-2021 13:39-0400 Diastolic blood pressure 80 mm[Hg] Jagjit Matias DO Work Phone: [facility] 12-15-2021 13:39-0400 Heart rate 64 /min Jagjit Matias DO Work Phone: [facility] 12-15-2021 13:39-0400 Respiratory rate 16 /min Jagjit Matias DO Work Phone: [facility] 12-15-2021 13:39-0400 Systolic blood pressure 130 mm[Hg] Jagjit Matias DO Work Phone: [facility] 07-13-2021 09:45-0400 Body temperature 98.01 [degF] Jagjit Matias DO Work Phone: [facility] 07-13-2021 09:45-0400 Body weight 68.49 kg Jagjit Matias DO Work Phone: [facility] 07-13-2021 09:45-0400 Diastolic blood pressure 60 mm[Hg] Jagjit Matias DO Work Phone: [facility] 07-13-2021 09:45-0400 Heart rate 76 /min Jagjit Matias DO Work Phone: [facility] 07-13-2021 09:45-0400 Respiratory rate 16 /min Jagjit Matias DO Work Phone: [facility] 07-13-2021 09:45-0400 Systolic blood pressure 116 mm[Hg] Jagjit Matias DO Work Phone: [facility] 07-06-2021 09:00-0400 Body temperature 98.4 [degF] Justen López MD Work Phone: [facility] 07-06-2021 09:00-0400 Body weight 69.04 kg Justen López MD Work Phone: [facility] 07-06-2021 09:00-0400 Diastolic blood pressure 60 mm[Hg] Justen López MD Work Phone: [facility] 07-06-2021 09:00-0400 Heart rate 77 /min Justen López MD Work Phone: [facility] 07-06-2021 09:00-0400 SaO2% (BldA) [Mass fraction] 97 % Justen López MD Work Phone: [facility] 07-06-2021 09:00-0400 Systolic blood pressure 128 mm[Hg] Justen López MD Work Phone: [facility] 06-15-2021 09:23-0400 Body height 157.5 cm Justen López MD Work Phone: [facility] 06-15-2021 09:23-0400 Body temperature 98.71 [degF] Justen López MD Work Phone: [facility] 06-15-2021 09:23-0400 Body weight 68.86 kg Justen López MD Work Phone: [facility] 06-15-2021 09:23-0400 Diastolic blood pressure 82 mm[Hg] Justen López MD Work Phone: [facility] 06-15-2021 09:23-0400 Heart rate 85 /min Justen López MD Work Phone: [facility] 06-15-2021 09:23-0400 SaO2% (BldA) [Mass fraction] 99 % Justen López MD Work Phone: [facility] 06-15-2021 09:23-0400 Systolic blood pressure 130 mm[Hg] Justen López MD Work Phone: [facility] 05-17-2018 08:54-0500 BMI (Body Mass Index) 26.39 kg/m2 [facility] 05-17-2018 08:54-0500 Body Temperature 98.71 [degF] [facility] 05-17-2018 08:54-0500 Height 160 cm [facility] 05-17-2018 08:54-0500 Weight 67.59 kg [facility] Encounters Encounter Date Encounter Type Care Provider Facility Start: 10-21-2024 ambulatory Jagjit Fox y:[facility] Start: 10-14-2024 End: 10-14-2024 [facility] Zora Hernandes APRN.CNP Work Phone: Urology Comment on above: Other specified diso rders of kidney and ureter (Primary Dx); 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) Start: 10-09-2024 End: 10-09-2024 Telephone encounter Jagjit Matias DO Work Phone: [facility] [place] Comment on above: Orders Start: 10-07-2024 End: 10-07-2024 ambulatory JAGJIT MATIAS Facility:[facility] Start: 10-07-2024 End: 10-07-2024 Patient encounter procedure Jagjit Matias DO Work Phone: [facility] [place] Comment on above: Medicare annual well ness visit, subsequent (Primary Dx); Fatty liver; Vitamin D deficiency; Dyslipidemia; Other iron deficiency anemia; Impaired fasting glucose; Vitamin B 12 deficiency Start: 10-03-2024 End: 10-03-2024 ambulatory EDITH DANIELLE Facility:[facility] Start: 08-22-2024 ambulatory EDITH DANIELLE Facili ty:[facility] Start: 08-22-2024 End: 08-22-2024 Subsequent hospital visit by physician [facility] [place] [facility] Work Phone: Radiology Comment on above: History of renal moses l cancer [Z85.528] Start: 08-09-2024 End: 08-09-2024 ambulatory Rocky Golias PT Work Phone: [facility] Comment on above: Abnormality of gait (Primary Dx); Sprain, gluteus medius, unspecified laterality, subsequent encounter Start: 08-08-2024 End: 08-08-2024 ambulatory Rocky Golias PT Work Phone: [facility] Comment on above: Abnormality of gait (Primary Dx); Sprain, gluteus medius, unspecified laterality, subsequent encounter Start: 07-29-2024 End: 07-29-2024 ambulatory Rocky Golias PT Work Phone: [facility] Comment on above: Abnormality of gait (Primary Dx); Sprain, gluteus medius, unspecified laterality, subsequent encounter Start: 07-26-2024 End: 07-26-2024 ambulatory Rocky Golias PT Work Phone: [facility] Comment on above: Abnormality of gait (Primary Dx); Sprain, gluteus medius, unspecified laterality, subsequent encounter Start: 07-25-2024 End: 07-25-2024 ambulatory Rocky Larose PT Work Phone: [facility] Comment on above: Abnormality of gait (Primary Dx); Sprain, gluteus medius, unspecified laterality, subsequent encounter Start: 07-10-2024 End: 07-10-2024 OT/PT/Speech Visit Rocky Larose PT Work Phone: [facility] Comment on above: Abnormality of gait (Primary Dx); Tear of gluteus medius tendon, unspecified laterality, subsequent encounter; Gait disorder; Sprain, gluteus medius, unspecified laterality, subsequent encounter Start: 06-03-2024 End: 06-03-2024 Follow-up encounter Jagjit Matias DO Work Phone: [facility] [place] Start: 05-30-2024 End: 05-30-2024 ambulatory JAGJIT MATIAS Facility:[facility] Start: 05-30-2024 End: 05-30-2024 Subsequent hospital visit by physician Screen Mammo [facility] Comment on above: Encounter for screen ing mammogram for malignant neoplasm of breast [Z12.31] Start: 03-29-2024 End: 03-29-2024 ambulatory JAGJIT MATIAS Facility:[facility] Start: 03-29-2024 End: 03-29-2024 Patient encounter procedure Jagjit Matias DO Work Phone: [facility] [place] Comment on above: Impaired fasting glu cose (Primary Dx); Encounter for screening mammogram for malignant neoplasm of breast; Vitamin D deficiency; Dyslipidemia; Other iron deficiency anemia; Gait disorder; 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); Vitamin B 12 deficiency; Nonrheumatic mitral valve regurgitation; Essential tremor Start: 03-27-2024 End: 03-27-2024 ambulatory KELSEY MANN Facility:[facility] Start: 03-25-2024 End: 03-25-2024 Telephone encounter Jagjit Matias DO Work Phone: [facility] Comment on above: Orders Start: 10-27-2023 Telephone encounter Rick Young APRN.TECHNICAL SALES MANAGER Work Phone: [facility] [place] Comment on above: Results Start: 10-26-2023 End: 10-26-2023 ambulatory JAGJIT MATIAS Facility:[facility] Start: 10-26-2023 End: 10-26-2023 Patient encounter procedure Rick Leong MINE ENVIRONMENTAL ENGINEER.TECHNICAL SALES MANAGER Work Phone: [facility] [place] Comment on above: Orthostatic dizzines s (Primary Dx); Dehydration Start: 10-13-2023 E-mail encounter fro m caregiver Moiz Mcgowan MINE ENVIRONMENTAL ENGINEER.TECHNICAL SALES MANAGER Work Phone: [facility] Start: 10-13-2023 Patient encounter procedure Moiz Mcgowan MINE ENVIRONMENTAL ENGINEER.TECHNICAL SALES MANAGER Work Phone: [facility] Comment on above: Actionable Findings - Final Notice Start: 09-28-2023 Refill Jagjit avilez DO Work Phone: [facility] [place] Comment on above: Refill Request Actionable Findings Follow-up Start: 08-21-2023 End: 08-21-2023 Patient encounter procedure Jagjit Matias DO Work Phone: [facility] [place] Comment on above: Tear of gluteus medi us tendon, unspecified laterality, subsequent encounter (Primary Dx); Gait disorder; Fatigue, unspecified type; Vitamin D deficiency; Dyslipidemia; 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); Other iron deficiency anemia; Vitamin B12 deficiency; IFG (impaired fasting glucose) Start: 08-03-2023 Telephone encounter Jagjit martinez DO Work Phone: [facility] [place] Comment on above: Problem with lab ord ers Start: 07-27-2023 End: 07-27-2023 Patient encounter procedure Skylar Smith MD Work Phone: Urology Comment on above: Encounter for follow -up surveillance of kidney cancer (Primary Dx); History of renal cell cancer; H/O partial nephrectomy Start: 07-27-2023 ambulatory Skylar hendrickson MD Work Phone: Urology Start: 07-14-2023 Telephone encounter Jagjit martinez DO Work Phone: [facility] [place] Comment on above: Results Start: 07-12-2023 Telephone encounter Jagjit Isadora Katty faulknerjoelle DO Work Phone: [facility] [place] Start: 07-12-2023 End: 07-12-2023 Subsequent hospital visit by physician [facility] (I-Stat) Work Phone: Cat Scan Comment on above: Renal mass, right [N 28.89] Start: 05-30-2023 Telephone encounter Jagjit Muir Katty martinez DO Work Phone: [facility] [place] Comment on above: Results Refill Request Start: 05-05-2023 End: 05-05-2023 Patient encounter procedure Jagjit Matias DO Work Phone: [facility] [place] Comment on above: Hyperglycemia (Prima ry Dx); Dyslipidemia; Vitamin D deficiency; Fatigue, unspecified type; Iron deficiency anemia, unspecified iron deficiency anemia type; Renal mass, right; Tremors of nervous system; 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) Start: 04-27-2023 ambulatory Jagjit Isadora Jade avilez DO Work Phone: [facility] [place] Comment on above: Muscle Aches Start: 04-21-2023 E-mail encounter fro m caregiver [facility] Start: 04-21-2023 Patient encounter procedure [facility] Provider [facility] [place] Comment on above: Dr. Matias Appoint ment Start: 02-14-2023 Documentation procedure Mammog dany Coordinator [facility] Start: 02-14-2023 Letter encounter Mammography Coordinator [facility] Department Start: 02-13-2023 End: 02-13-2023 Subsequent hospital visit by physician Screen Mammo [facility] Comment on above: Encounter for screen ing mammogram for malignant neoplasm of breast [Z12.31] Start: 11-04-2022 End: 11-04-2022 Subsequent hospital visit by physician [facility] (I-Stat) Work Phone: Cat Scan Comment on above: Leukocytosis, unspec ified type [D72.829] Start: 11-04-2022 Telephone encounter Jagjit Muir Katty faulknerjoelle DO Work Phone: [facility] [place] Comment on above: Results Start: 11-02-2022 Telephone encounter Jagjit Alaniz arrjoelle DO Work Phone: [facility] [place] Comment on above: Medication request f or CT Start: 11-01-2022 Telephone encounter Jagjit martinez DO Work Phone: [facility] [place] Comment on above: Patient Question Start: 10-25-2022 Telephone encounter Jagjit martinez DO Work Phone: [facility] [place] Comment on above: Question Start: 10-21-2022 End: 10-21-2022 Patient encounter procedure Rick Leong MINE ENVIRONMENTAL ENGINEER.TECHNICAL SALES MANAGER Work Phone: [facility] [place] Comment on above: Renal mass, right (P rimary Dx); Acquired cyst of kidney; Other specified disorders of kidney and ureter; Calculus of gallbladder without cholecystitis without obstruction; Leukocytosis, unspecified type; Renal cell carcinoma, unspecified laterality (HCC) Start: 10-10-2022 Telephone encounter Freddie Hua PA-C Work Phone: [facility] Comment on above: CT appt Start: 09-29-2022 Telephone encounter Jagjit martinez DO Work Phone: [facility] [place] Comment on above: fax lab results [facility] for MRI monday Start: 09-28-2022 Telephone encounter Jagjit martinez DO Work Phone: [facility] [place] Comment on above: Authorization on pro cedure Start: 09-27-2022 Telephone encounter Miracle martinez MINE ENVIRONMENTAL ENGINEER.TECHNICAL SALES MANAGER Work Phone: [facility] [place] Comment on above: Results Start: 09-26-2022 Telephone encounter Miracle martinez MINE ENVIRONMENTAL ENGINEER.TECHNICAL SALES MANAGER Work Phone: [facility] [place] Comment on above: Results Patient Update Start: 09-26-2022 ambulatory SKYLAR Lindsay acility:[facility] Start: 09-26-2022 End: 09-26-2022 Subsequent hospital visit by physician [facility] Comment on above: Elevated white blood cell count, unspecified [D72.829] Leukocytosis, unspec ified type [D72.829] Start: 09-23-2022 Telephone encounter Elliot De Los Santos MD Work Phone: [facility] [place] Comment on above: Results Start: 09-22-2022 ambulatory Jagjit avilez DO Work Phone: [facility] [place] Comment on above: Fatigue; Tremor; Vom iting Start: 08-11-2022 ambulatory JAGJIT MATIAS [facility] Start: 08-11-2022 End: 08-11-2022 Office outpatient visit 15 minutes Frank Plata MD Work Phone: [facility] Comment on above: Bilateral hip pain ( Primary Dx) Start: 07-21-2022 End: 07-21-2022 Patient encounter procedure Skylar Smith MD Work Phone: Urology Comment on above: Renal cell carcinoma , unspecified laterality (HCC) (Primary Dx) Start: 07-11-2022 End: 07-11-2022 Patient encounter procedure Jagjit Matias DO Work Phone: [facility] [place] Comment on above: Dermatitis contact ( Primary Dx); Renal mass, right; Generalized abdominal pain; Vitamin B12 deficiency; Other iron deficiency anemia; Vitamin D deficiency; Hyperglycemia; Dyslipidemia Start: 06-29-2022 End: 06-29-2022 Admission to establishment [facility] Work Phone: [facility] Start: 06-29-2022 End: 06-29-2022 Preprocedural examination done [facility] Work Phone: Pre Anesthesia Start: 06-29-2022 End: 06-29-2022 [address] [address] [facility] Work Phone: Pre Anesthesia Comment on above: Pre-op evaluation (P rimary Dx); Essential tremor; Nonrheumatic mitral valve regurgitation; Gastroesophageal reflux disease without esophagitis Start: 06-29-2022 Telephone encounter Jagjit faulknerjoelle DO Work Phone: [facility] [place] Comment on above: Results Start: 06-29-2022 End: 06-29-2022 Patient encounter procedure Anamariajose Bandyopadhyay VICKIE Work Phone: Urology Comment on above: Renal mass (Primary Dx); Pre-op testing Start: 06-29-2022 End: 06-29-2022 Patient encounter status Melchor Perez VICKIE Work Phone: Urology Start: 06-23-2022 ambulatory FRANK PLATA [facility] Start: 06-23-2022 End: 06-23-2022 Subsequent hospital visit by physician Frank Plata MD Work Phone: [facility] Comment on above: Arrived Start: 06-16-[address] rendon MINE ENVIRONMENTAL ENGINEER.TECHNICAL SALES MANAGER Work Phone: [facility] [place] Comment on above: Results; Appointment Start: 06-16-2022 End: 06-16-2022 Subsequent hospital visit by physician [facility] Work Phone: Radiology Comment on above: Renal mass, right [N 28.89] Start: 06-13-2022 Telephone encounter Jagjit martinez DO Work Phone: [facility] [place] Comment on above: Message opened in er ror Social Director - O ther Start: 06-10-2022 End: 06-10-2022 Patient encounter procedure Rick Ervinutzman MINE ENVIRONMENTAL ENGINEER.TECHNICAL SALES MANAGER Work Phone: [facility] [place] Comment on above: Generalized abdomina l pain (Primary Dx); Calculus of gallbladder without cholecystitis without obstruction; Nausea; Renal mass, right Start: 06-09-2022 ambulatory Ana Maria Berg RN [facility] Start: 06-09-2022 End: 06-09-2022 Office outpatient visit 25 minutes Frank Plata MD Work Phone: [facility] Comment on above: Pain in prosthetic j oint, sequela (Primary Dx); Left hip pain Start: 06-09-2022 End: 06-09-2022 Subsequent hospital visit by physician Frank Plata MD Work Phone: [facility] Start: 06-08-2022 Telephone encounter Jagjit [...] G arrison DO Work Phone: [facility] [place] Comment on above: Question Start: 05-19-2022 Telephone encounter Jagjit L G arrison DO Work Phone: [facility] [place] Comment on above: Results Start: 05-16-2022 Telephone encounter Jagjit Isadora Alaniz arrison DO Work Phone: [facility] [place] Comment on above: New Medication Start: 05-11-2022 Telephone encounter Jagjit Alaniz arrison DO Work Phone: [facility] [place] Comment on above: Results Start: 05-06-2022 Telephone encounter Ria christian MINE ENVIRONMENTAL ENGINEER.TECHNICAL SALES MANAGER Work Phone: [facility] [place] Comment on above: Results Start: 05-05-2022 Telephone encounter Ria christian MINE ENVIRONMENTAL ENGINEER.TECHNICAL SALES MANAGER Work Phone: [facility] [place] Comment on above: Results Start: 05-03-2022 End: 05-03-2022 Subsequent hospital visit by physician Bj [facility] [place] Work Phone: Radiology Comment on above: Right sided abdomina l pain [R10.9] Start: 05-03-2022 End: 05-03-2022 Patient encounter procedure Ria Gunter MINE ENVIRONMENTAL ENGINEER.TECHNICAL SALES MANAGER Work Phone: [facility] [place] Comment on above: Right sided abdomina l pain (Primary Dx) Start: 02-23-2022 Telephone encounter Kelsey griffith MINE ENVIRONMENTAL ENGINEER.TECHNICAL SALES MANAGER Work Phone: [facility] [place] Comment on above: Results Start: 02-16-2022 Telephone encounter Jagjit Alaniz arrison DO Work Phone: [facility] [place] Comment on above: Patient Question; Or ders Start: 01-05-2022 Documentation procedure Mammog dany Coordinator [facility] Start: 01-05-2022 Letter encounter Mammography Coordinator [facility] Department Start: 01-05-2022 Telephone encounter Rick Young EDGARDOEleniMAYA Work Phone: [facility] [place] Comment on above: Results Start: 01-05-2022 End: 01-05-2022 Subsequent hospital visit by physician Screen Mammo [facility] M[facility] Comment on above: Visit for screening mammogram [Z12.31] Start: 12-15-2021 End: 12-15-2021 Patient encounter procedure Jagjit Matias DO Work Phone: [facility] [place] Comment on above: Vitamin B12 deficien cy [...] encounter procedure Jagjit Matias DO Work Phone: [facility] [place] Comment on above: Other iron deficienc y [...] 08-04-2020 Subsequent hospital visit by physician Bj [facility] [place] Work Phone: Radiology Comment on above: Left hip pain [M25.5 52] Start: 06-19-2018 End: 06-20-2018 Evaluation and management of inpatient [facility] Start: 05-17-2018 End: 05-17-2018 Letter encounter Provider [facility] Start: 05-17-2018 End: 05-17-2018 Patient encounter procedure Frank Plata Work Phone: [facility] Start: 05-17-2018 End: 05-17-2018 Office outpatient visit 15 minutes Frank Boni Work Phone: [facility] Comment on above: Hx of total hip arth roplasty, left (Primary Dx) Start: 10-10-2017 Patient encounter AUNDREA MANN [facility] Procedures Date Procedure Procedure Detail Performing Clinician Start: 08-21-2023 Adult depression screening assessment Mozi Mcgowan MINE ENVIRONMENTAL ENGINEER.TECHNICAL SALES MANAGER Work Phone: Start: 07-27-2023 Urnls dip stick/tablet reagent auto microscopy Bulk Order Provider Start: 11-04-2022 Ct abdomen w/o & w/contrast material Rick Leong APRN.TECHNICAL SALES MANAGER Work Phone: Start: 09-26-2022 Ct abdomen & pelvis w/contrast material Skylar De Los Santos MD Work Phone: Start: 06-29-2022 Urnls dip stick/tablet reagent auto microscopy Bulk Order Provider Start: 06-16-2022 Us abdominal real time w/image documentation Rick Leong APRN.TECHNICAL SALES MANAGER Work Phone: Start: 06-02-2022 Urnls dip stick/tablet reagent auto microscopy Bulk Order Provider Start: 05-03-2022 Radiologic exam abdomen 1 view Ria Gunter APRN.TECHNICAL SALES MANAGER Work Phone: Start: 01-05-2022 Screening mammography bi 2-view breast inc cad Jagjit Matias DO Work Phone: Start: 06-24-2021 Colonoscopy Jagjit Matias DO Work Phone: Start: 08-04-2020 Radex hips bilateral with pelvis minimum 5 views Jagjit Mtaias DO Work Phone: Start: 08-04-2020 Adult depression screening assessment Jagjit Matias [employer] Work Phone: Start: 07-30-2018 H/O: artificial joint Status post replacement of left shoulder joint Jagjit [employer] Work Phone: Start: 06-19-2018 H/O: artificial joint Status post total shoulder arthroplasty Jagjit Minor[employer]win Work Phone: Start: 06-04-2018 Antibody screen TAYLOR WILLIAMSON Plan of Treatment Date Care Activity Detail Author Start: 06-25-2031 Colonoscopy COLONOSCOPY [facility] Start: 06-25-2031 COLORECTAL CANCER SCREENING COLORECTAL CANCER SCREENING [facility] Start: 06-25-2031 Screening for malign ant neoplasm of colon [facility] Start: 10-04-2027 Diabetes Screening Diabetes Screenin [facility] Start: 03-27-2027 Diabetes Screening Diabetes Screenin [facility] Start: 10-25-2026 Diabetes Screening Diabetes Screenin g [facility] Start: 08-16-2026 Diabetes Screening Diabetes Screenin g [facility] Start: 04-17-2026 Diabetes Screening Diabetes Screenin g [facility] Start: 09-22-2025 DIABETES SCREEN DIABETES SCREEN [facility] Start: 09-22-2025 Diabetes Screening Diabetes Screenin g [facility] Start: 07-07-2025 DIABETES SCREEN DIABETES [facility]CREEN [facility] [facility] Start: 06-29-2025 DIABETES SCREEN DIABETES SCREEN [facility] Start: 05-03-2025 DIABETES SCREEN DIABETES SCREEN [facility] Start: 04-09-2025 End: 04-09-2025 Patient encounter procedure 04/09/2025 10:00 AM EST Office Visit Family Medicine [facility] [address] [place] [address] Jagjit Matias DO [address] [place] [address] 6 month follow up Family Medicine [facility] Comment on above: 6 month follow up Start: 03-29-2025 Covid-19 Vaccine ( season) Covid-19 Vaccine () [facility] Comment on above: Postponed from 11/11 (Declined at this time) Start: 02-21-2025 DIABETES SCREEN DIABETES SCREEN [facility] Start: 11-11-2024 Influenza vaccination C [facility] Start: 10-15-2024 End: 10-15-2024 ambulatory 10/15/2024 2:15 PM EDT [facility] [address] [address] Skylar Smith MD [address] [place] [address] Image Review-Patient requested a web appt due to distance. Urology Comment on above: Image Review-Patient requested a web appt due to distance. Start: 10-14-2024 End: 10-14-2024 ambulatory 10/14/2024 2:00 PM EDT [facility] [address] [address] Zora Hernandes APRN.TECHNICAL SALES MANAGER [address] [place] [address] Image Review-Patient requested a web appt due to distance. Urology Comment on above: Image Review-Patient requested a web appt due to distance. Start: 10-07-2024 End: 01-06-2025 25-hydroxyvitamin D3 [Mass/volume] in Serum or Plasma VITAMIN D 25 HYDROXY Lab Routine Vitamin D deficiency Expected: 10/07/2024, Expires: 01/06/2025 [facility] Comment on above: Expected: 10/07/2024 , Expires: 01/06/2025 Start: 10-07-2024 End: 01-06-2025 CBC W Auto Differential panel - Blood COMPLETE BLOOD COUNT AND DIFFERENTIAL Lab Routine Other iron deficiency anemia Impaired fasting glucose Expected: 10/07/2024, Expires: 01/06/2025 [facility] Comment on above: Expected: 10/07/2024 , Expires: 01/06/2025 Start: 10-07-2024 End: 01-06-2025 Cobalamin (Vitamin B12) [Mass/volume] in Serum or Plasma VITAMIN B12 Lab Routine Vitamin B 12 deficiency Expected: 10/07/2024, Expires: 01/06/2025 [facility] Comment on above: Expected: 10/07/2024 , Expires: 01/06/2025 Start: 10-07-2024 End: 01-06-2025 Ferritin [Mass/volume] in Serum or Plasma FERRITIN Lab Routine Other iron deficiency anemia Expected: 10/07/2024, Expires: 01/06/2025 [facility] Comment on above: Expected: 10/07/2024 , Expires: 01/06/2025 Start: 10-07-2024 End: 01-06-2025 Hemoglobin A1c in Blood HEMOGLOBIN A1C Lab Routine Impaired fasting glucose Expected: 10/07/2024, Expires: 01/06/2025 [facility] Comment on above: Expected: 10/07/2024 , Expires: 01/06/2025 Start: 10-07-2024 End: 01-06-2025 Hepatic function 2000 panel - Serum or Plasma HEPATIC FUNCTION PNL Lab Routine Fatty liver Expected: 10/07/2024, Expires: 01/06/2025 [facility] Comment on above: Expected: 10/07/2024 , Expires: 01/06/2025 Start: 10-07-2024 End: 01-06-2025 Iron and Iron binding capacity panel - Serum or Plasma IRON AND TIBC Lab Routine Other iron deficiency anemia Expected: 10/07/2024, Expires: 01/06/2025 [facility] Comment on above: Expected: 10/07/2024 , Expires: 01/06/2025 Start: 10-07-2024 End: 01-06-2025 Lipid 1996 panel - Serum or Plasma LIPID PANEL, FASTING Lab Routine Dyslipidemia Expected: 10/07/2024, Expires: 01/06/2025 [facility] Comment on above: Expected: 10/07/2024 , Expires: 01/06/2025 Start: 10-07-2024 End: 10-07-2024 Patient encounter procedure 10/07/2024 7:40 AM EDT Office Visit [facility] [place] [address] [facility], [place] [id number] Jagjit Matias DO [address] [facility] [place] [address] Medicare Wellness (Reschedule from 09/27/24 to 10/07/24) [facility] Comment on above: Medicare Wellness (R eschedule from 09/27/24 to 10/07/24) Start: 09-27-2024 End: 09-27-2024 Patient encounter procedure 09/27/2024 9:00 AM EDT Office Visit [facility] [place] [address] [place] [address] Jagjit Matias DO [address] [facility], [place] [id number] Physical [facility] Comment on above: Physical Start: 09-09-2024 Influenza vaccination Influenza Vacc ine (#1) [facility] Comment on above: Postponed from 11/11 (Declined at this time) Start: 08-28-2024 End: 08-28-2024 ambulatory 08/28/2024 10:00 AM EDT [facility] [address] [facility] [place] [address] Rocky Larose PT [address] [place] [address] S76.019D (ICD-10-CM) - Tear of gluteus medius tendon, unspecified laterality, [facility] Comment on above: S76.019D (ICD-10-CM) - Tear of gluteus medius tendon, unspecified laterality, subsequent encounter Start: 08-26-2024 End: 08-26-2024 ambulatory 08/26/2024 9:30 AM EDT OT/PT/Speech Visit [facility] [address] [place] [address] Jana Og, ELEVATED WORK PLATFORM OPERATOR [address] [place] [address] S76.019D (ICD-10-CM) - Tear of gluteus medius tendon, unspecified laterality, subsequent encounter [facility] Comment on above: S76.019D (ICD-10-CM) - Tear of gluteus medius tendon, unspecified laterality, subsequent encounter Start: 08-22-2024 End: 08-22-2024 Patient encounter procedure Radiology Comment on above: Kidney cancer, monit or Start: 08-21-2024 End: 08-21-2024 ambulatory 08/21/2024 10:00 AM EDT OT/PT/Speech Visit [facility] [address] [place] [address] Rocky Larose, PT [address] [place] [address] S76.019D (ICD-10-CM) - Tear of gluteus medius tendon, unspecified laterality, subsequent encounter [facility] Comment on above: S76.019D (ICD-10-CM) - Tear of gluteus medius tendon, unspecified laterality, subsequent encounter Start: 08-20-2024 Anxiety Screening Anxiety Screening [facility] Start: 08-20-2024 Depression Screening Depression Scre endee [facility] Start: 08-19-2024 End: 08-19-2024 ambulatory 08/19/2024 9:30 AM EDT OT/PT/Speech Visit [facility] [address] [place] [address] Jana Og, ELEVATED WORK PLATFORM OPERATOR [address] [place] [address] S76.019D (ICD-10-CM) - Tear of gluteus medius tendon, unspecified laterality, subsequent encounter [facility] Comment on above: S76.019D (ICD-10-CM) - Tear of gluteus medius tendon, unspecified laterality, subsequent encounter Start: 08-14-2024 End: 08-14-2024 ambulatory 08/14/2024 10:00 AM EDT OT/PT/Speech Visit [facility] [address] [place] [address] Golias, Rocky, PT [address] [place] [address] S76.019D (ICD-10-CM) - Tear of gluteus medius tendon, unspecified laterality, subsequent encounter [facility] Comment on above: S76.019D (ICD-10-CM) - Tear of gluteus medius tendon, unspecified laterality, subsequent encounter Start: 08-12-2024 End: 08-12-2024 ambulatory 08/12/2024 10:30 AM EDT OT/PT/Speech Visit [facility] [address] [place] [address] Golias, Rocky, PT [address] [place] [address] S76.019D (ICD-10-CM) - Tear of gluteus medius tendon, unspecified laterality, subsequent encounter [facility] Comment on above: S76.019D (ICD-10-CM) - Tear of gluteus medius tendon, unspecified laterality, subsequent encounter Start: 08-09-2024 End: 08-09-2024 ambulatory 08/09/2024 11:15 AM EDT OT/PT/Speech Visit [facility] [address] [place] [address] Golias, Rocky, PT [address] [place] [address] S76.019D (ICD-10-CM) - Tear of gluteus medius tendon, unspecified laterality, subsequent encounter [facility] Comment on above: S76.019D (ICD-10-CM) - Tear of gluteus medius tendon, unspecified laterality, subsequent encounter Start: 08-06-2024 End: 08-06-2024 ambulatory 08/06/2024 2:45 PM EDT OT/PT/Speech Visit [facility] [address] [place] [address] Rocky Larose, PT [address] [place] [address] S76.019D (ICD-10-CM) - Tear of gluteus medius tendon, unspecified laterality, subsequent encounter [facility] Comment on above: S76.019D (ICD-10-CM) - Tear of gluteus medius tendon, unspecified laterality, subsequent encounter Start: 07-31-2024 End: 07-31-2024 ambulatory 07/31/2024 3:30 PM EDT OT/PT/Speech Visit [facility] [address] [place] [address] Jana Og, ELEVATED WORK PLATFORM OPERATOR [address] [place] [address] S76.019D (ICD-10-CM) - Tear of gluteus medius tendon, unspecified laterality, subsequent encounter [facility] Comment on above: S76.019D (ICD-10-CM) - Tear of gluteus medius tendon, unspecified laterality, subsequent encounter Start: 07-29-2024 End: 07-29-2024 ambulatory 07/29/2024 2:45 PM EDT OT/PT/Speech Visit [facility] [address] [place] [address] Jana Og, ELEVATED WORK PLATFORM OPERATOR [address] [place] [address] S76.019D (ICD-10-CM) - Tear of gluteus medius tendon, unspecified laterality, subsequent encounter [facility] Comment on above: S76.019D (ICD-10-CM) - Tear of gluteus medius tendon, unspecified laterality, subsequent encounter Start: 07-26-2024 End: 07-26-2024 ambulatory 07/26/2024 3:00 PM EDT OT/PT/Speech Visit [facility] [address] [place] [address] Rocky Larose, PT [address] [place] [address] S76.019D (ICD-10-CM) - Tear of gluteus medius tendon, unspecified laterality, subsequent encounter [facility] Comment on above: S76.019D (ICD-10-CM) - Tear of gluteus medius tendon, unspecified laterality, subsequent encounter Start: 07-26-2024 End: 10-25-2024 Basic metabolic 2000 panel - Serum or Plasma BASIC METABOLIC PANEL Lab Routine History of renal cell cancer Expected: 07/26/2024 (Approximate), Expires: 10/25/2024 [facility] Work Phone: Comment on above: Expected: 07/26/2024 (Approximate), Expires: 10/25/2024 Start: 07-24-2024 End: 07-24-2024 ambulatory 07/24/2024 3:30 PM EDT OT/PT/Speech Visit [facility] [address] [place] [address] Jana Og, ELEVATED WORK PLATFORM OPERATOR [address] [place] [address] S76.019D (ICD-10-CM) - Tear of gluteus medius tendon, unspecified laterality, subsequent encounter [facility] Comment on above: S76.019D (ICD-10-CM) - Tear of gluteus medius tendon, unspecified laterality, subsequent encounter Start: 07-22-2024 End: 07-22-2024 ambulatory 07/22/2024 3:30 PM EDT OT/PT/Speech Visit [facility] [address] [place] [address] Jana Og, ELEVATED WORK PLATFORM OPERATOR [address] [place] [address] S76.019D (ICD-10-CM) - Tear of gluteus medius tendon, unspecified laterality, subsequent encounter [facility] Comment on above: S76.019D (ICD-10-CM) - Tear of gluteus medius tendon, unspecified laterality, subsequent encounter Start: 07-13-2024 DIABETES SCREEN DIABETES SCREEN [facility] Start: 05-12-2024 DIABETES SCREEN DIABETES SCREEN [facility] Start: 03-29-2024 End: 03-29-2024 Patient encounter procedure 03/29/2024 12:20 PM EST Office Visit [facility] [place] [address] [place] [address] Jagjit Matias DO [address] [place] [address] 3 month follow up [facility] [place] Comment on above: 3 month follow up Start: 03-25-2024 End: 06-24-2024 25-hydroxyvitamin D3 [Mass/volume] in Serum or Plasma VITAMIN D 25 HYDROXY Lab Routine Vitamin D deficiency Expected: 03/25/2024, Expires: 06/24/2024 [facility] Comment on above: Expected: 03/25/2024 , Expires: 06/24/2024 Start: 03-25-2024 End: 06-24-2024 CBC panel - Blood by Automated count COMPLETE BLOOD COUNT Lab Routine Other iron deficiency anemia Expected: 03/25/2024, Expires: 06/24/2024 [facility] Comment on above: Expected: 03/25/2024 , Expires: 06/24/2024 Start: 03-25-2024 End: 06-24-2024 Cobalamin (Vitamin B12) [Mass/volume] in Serum or Plasma VITAMIN B12 Lab Routine Vitamin B 12 deficiency Expected: 03/25/2024, Expires: 06/24/2024 [facility] Comment on above: Expected: 03/25/2024 , Expires: 06/24/2024 Start: 03-25-2024 End: 06-24-2024 Comprehensive metabolic 2000 panel - Serum or Plasma COMPREHENSIVE METABOLIC PANEL Lab Routine Dyslipidemia Expected: 03/25/2024, Expires: 06/24/2024 [facility] Comment on above: Expected: 03/25/2024 , Expires: 06/24/2024 Start: 03-25-2024 End: 06-24-2024 Hemoglobin A1c in Blood HEMOGLOBIN A1C Lab Routine Impaired fasting glucose Expected: 03/25/2024, Expires: 06/24/2024 [facility] Work Phone: Comment on above: Expected: 03/25/2024 , Expires: 06/24/2024 Start: 03-25-2024 End: 06-24-2024 Iron and Iron binding capacity panel - Serum or Plasma IRON AND TIBC Lab Routine Other iron deficiency anemia Expected: 03/25/2024, Expires: 06/24/2024 [facility] Comment on above: Expected: 03/25/2024 , Expires: 06/24/2024 Start: 03-13-2024 Advance Directive Discussion Advance Directive Discussion [facility] Start: 03-13-2024 Medicare Advantage A nnual Wellness Visit Medicare Advantage Annual Wellness Visit [facility] Start: 02-13-2024 End: 02-13-2024 Patient encounter procedure 02/13/2024 12:00 PM EST Office Visit Family [facility] [address] [place] [address] Jagjit Matias DO [address] [facility] [place] [address] 3 month follow up Family [facility] Comment on above: 3 month follow up Start: 12-01-2023 End: 12-01-2023 Patient encounter procedure 12/01/2023 10:00 AM EDT Office Visit Family [facility] [address] [place] [address] Jagjit Matias DO [address] [place] [address] 3 month follow up Family Medicine [facility] Comment on above: 3 month follow up Start: 11-21-2023 End: 02-20-2024 25-hydroxyvitamin D3 [Mass/volume] in Serum or Plasma VITAMIN D 25 HYDROXY Lab Routine Vitamin D deficiency Expected: 11/21/2023, Expires: 02/20/2024 [facility] Comment on above: Expected: 11/21/2023 , Expires: 02/20/2024 Start: 11-21-2023 End: 02-20-2024 CBC panel - Blood by Automated count COMPLETE BLOOD COUNT Lab Routine Other iron deficiency anemia Expected: 11/21/2023, Expires: 02/20/2024 [facility] Work Phone: Comment on above: Expected: 11/21/2023 , Expires: 02/20/2024 Start: 11-21-2023 End: 02-20-2024 Cobalamin (Vitamin B12) [Mass/volume] in Serum or Plasma VITAMIN B12 Lab Routine Vitamin B12 deficiency Expected: 11/21/2023, Expires: 02/20/2024 [facility] Comment on above: Expected: 11/21/2023 , Expires: 02/20/2024 Start: 11-21-2023 End: 02-20-2024 Comprehensive metabolic 2000 panel - Serum or Plasma COMPREHENSIVE METABOLIC PANEL Lab Routine Dyslipidemia Expected: 11/21/2023, Expires: 02/20/2024 [facility] Comment on above: Expected: 11/21/2023 , Expires: 02/20/2024 Start: 11-21-2023 End: 02-20-2024 Hemoglobin A1c in Blood HEMOGLOBIN A1C Lab Routine IFG (impaired fasting glucose) Expected: 11/21/2023, Expires: 02/20/2024 [facility] Comment on above: Expected: 11/21/2023 , Expires: 02/20/2024 Start: 11-21-2023 End: 02-20-2024 Iron and Iron binding capacity panel - Serum or Plasma IRON AND TIBC Lab Routine Other iron deficiency anemia Expected: 11/21/2023, Expires: 02/20/2024 [facility] Comment on above: Expected: 11/21/2023 , Expires: 02/20/2024 Start: 11-12-2023 Covid-19 Vaccine ( season) Covid-19 Vaccine () [facility] Start: 11-12-2023 Influenza vaccination C [facility] Start: 10-26-2023 End: 01-25-2024 Comprehensive metabolic 2000 panel - Serum or Plasma [facility] Work Phone: Comment on above: Expected: 10/26/2023 , Expires: 01/25/2024 Start: 10-26-2023 End: 01-25-2024 Ferritin [Mass/volume] in Serum or Plasma [facility] Comment on above: Expected: 10/26/2023 , Expires: 01/25/2024 Start: 10-26-2023 End: 01-25-2024 Iron and Iron binding capacity panel - Serum or Plasma [facility] Comment on above: Expected: 10/26/2023 , Expires: 01/25/2024 Start: 09-27-2023 FECAL OCCULT BLOOD FECAL OCCULT BLOO D [facility] Start: 09-27-2023 Screening for malign ant neoplasm of colon Fecal Occult Blood [facility] Start: 09-11-2023 End: 12-11-2023 25-hydroxyvitamin D3 [Mass/volume] in Serum or Plasma VITAMIN D 25 HYDROXY Lab Routine Vitamin D deficiency Expected: 09/11/2023, Expires: 12/11/2023 [facility] Comment on above: Expected: 09/11/2023 , Expires: 12/11/2023 Start: 09-11-2023 End: 12-11-2023 Cobalamin (Vitamin B12) [Mass/volume] in Serum or Plasma VITAMIN B12 Lab Routine Fatigue, unspecified type Expected: 09/11/2023, Expires: 12/11/2023 [facility] Comment on above: Expected: 09/11/2023 , Expires: 12/11/2023 Start: 09-10-2023 Influenza vaccination Influenza Vacc ine (#1) [facility] Comment on above: Postponed from 11/11 (Declined at this time) Start: 08-21-2023 End: 08-21-2023 Patient encounter procedure 08/21/2023 9:40 AM EDT Office Visit [facility] [address] [place] [address] Jagjit Matias DO [address] [place] [address] 3 month follow up Family Medicine [facility] Comment on above: 3 month follow up Start: 08-11-2023 End: 09-11-2023 Hemoglobin A1c in Blood HEMOGLOBIN A1C Lab Routine Hyperglycemia Expected: 08/11/2023, Expires: 09/11/2023 [facility] Work Phone: Comment on above: Expected: 08/11/2023 , Expires: 09/11/2023 Start: 08-04-2023 End: 09-11-2023 Lipid 1996 panel - Serum or Plasma LIPID PANEL BASIC Lab Routine Dyslipidemia Expected: 08/04/2023, Expires: 09/11/2023 [facility] Comment on above: Expected: 08/04/2023 , Expires: 09/11/2023 Start: 07-27-2023 End: 07-27-2023 Patient encounter procedure 07/27/2023 4:45 PM EDT Office Visit Urology [address] [address] Luis, MD Skylar [address] [place], [place] [id number] F/U, Renal cell carcinoma, unspecified laterality (HCC) and to review test results. Urology Comment on above: F/U, Renal cell carc inoma, unspecified laterality (HCC) and to review test results. Start: 07-22-2023 End: 09-21-2023 Basic metabolic 2000 panel - Serum or Plasma BASIC METABOLIC PNL Lab Routine Renal cell carcinoma, unspecified laterality (HCC) Expected: 07/22/2023 (Approximate), Expires: 09/21/2023 [facility] Work Phone: Comment on above: Expected: 07/22/2023 (Approximate), Expires: 09/21/2023 Start: 07-22-2023 End: 09-21-2023 CBC panel - Blood by Automated count CBC Lab Routine Renal cell carcinoma, unspecified laterality (HCC) Expected: 07/22/2023 (Approximate), Expires: 09/21/2023 [facility] Work Phone: Comment on above: Expected: 07/22/2023 (Approximate), Expires: 09/21/2023 Start: 07-22-2023 End: 08-20-2023 Ct abdomen w/contrast material CT ABDOMEN W IVCON Radiology Routine Renal cell carcinoma, unspecified laterality (HCC) Expected: 07/22/2023 (Approximate), Expires: 08/20/2023 [facility] Work Phone: Comment on above: Expected: 07/22/2023 (Approximate), Expires: 08/20/2023 Start: 07-12-2023 COVID-19 VACCINE (#1) COVID-19 VACCI NE (#1) [facility] Comment on above: Postponed from 03/10 (Declined at this time) Start: 05-30-2023 End: 08-29-2023 CREATININE, ISTAT CREATININE, ISTAT Lab Routine Renal mass, right Expected: 05/30/2023, Expires: 08/29/2023 [facility] Work Phone: Comment on above: Expected: 05/30/2023 , Expires: 08/29/2023 Start: 05-05-2023 End: 08-04-2023 25-hydroxyvitamin D3 [Mass/volume] in Serum or Plasma VITAMIN D 25 HYDROXY Lab Routine Vitamin D deficiency Expected: 05/05/2023, Expires: 08/04/2023 [facility] Work Phone: Comment on above: Expected: 05/05/2023 , Expires: 08/04/2023 Start: 05-05-2023 End: 08-04-2023 Cobalamin (Vitamin B12) [Mass/volume] in Serum or Plasma VITAMIN B12 BLOOD Lab Routine Fatigue, unspecified type Expected: 05/05/2023, Expires: 08/04/2023 [facility] Work Phone: Comment on above: Expected: 05/05/2023 , Expires: 08/04/2023 Start: 05-05-2023 End: 08-04-2023 Hemoglobin A1c in Blood HGB A1C Lab Routine Hyperglycemia Expected: 05/05/2023, Expires: 08/04/2023 [facility] Work Phone: Comment on above: Expected: 05/05/2023 , Expires: 08/04/2023 Start: 05-05-2023 End: 08-04-2023 Lipid 1996 panel - Serum or Plasma LIPID PANEL BASIC Lab Routine Dyslipidemia Expected: 05/05/2023, Expires: 08/04/2023 [facility] Work Phone: Comment on above: Expected: 05/05/2023 , Expires: 08/04/2023 Start: 03-13-2023 Advance Directive Discussion Advance Directive Discussion [facility] Start: 03-13-2023 Behavioral Health Screening Behavioral Health Screening [facility] Start: 03-13-2023 Depression Assessment Depression Ass essment [facility] Start: 01-14-2023 End: 03-16-2023 25-hydroxyvitamin D3 [Mass/volume] in Serum or Plasma VITAMIN D 25 HYDROXY Lab Routine Vitamin D deficiency Expected: 01/14/2023, Expires: 03/16/2023 [facility] Work Phone: Comment on above: Expected: 01/14/2023 , Expires: 03/16/2023 Start: 01-14-2023 End: 03-16-2023 CBC panel - Blood by Automated count CBC Lab Routine Dyslipidemia Expected: 01/14/2023, Expires: 03/16/2023 [facility] Work Phone: Comment on above: Expected: 01/14/2023 , Expires: 03/16/2023 Start: 01-14-2023 End: 03-16-2023 Cobalamin (Vitamin B12) [Mass/volume] in Serum or Plasma VITAMIN B12 BLOOD Lab Routine Vitamin B12 deficiency Expected: 01/14/2023, Expires: 03/16/2023 [facility] Work Phone: Comment on above: Expected: 01/14/2023 , Expires: 03/16/2023 Start: 01-14-2023 End: 03-16-2023 Comprehensive metabolic 2000 panel - Serum or Plasma COMP METABOLIC PANEL Lab Routine Dyslipidemia Expected: 01/14/2023, Expires: 03/16/2023 [facility] Work Phone: Comment on above: Expected: 01/14/2023 , Expires: 03/16/2023 Start: 01-14-2023 End: 03-16-2023 Ferritin [Mass/volume] in Serum or Plasma FERRITIN BLD Lab Routine Other iron deficiency anemia Expected: 01/14/2023, Expires: 03/16/2023 [facility] Work Phone: Comment on above: Expected: 01/14/2023 , Expires: 03/16/2023 Start: 01-14-2023 End: 03-16-2023 Hemoglobin A1c in Blood HGB A1C Lab Routine Hyperglycemia Expected: 01/14/2023, Expires: 03/16/2023 [facility] Work Phone: Comment on above: Expected: 01/14/2023 , Expires: 03/16/2023 Start: 01-14-2023 End: 03-16-2023 Iron and Iron binding capacity panel - Serum or Plasma IRON + TIBC Lab Routine Other iron deficiency anemia Expected: 01/14/2023, Expires: 03/16/2023 [facility] Work Phone: Comment on above: Expected: 01/14/2023 , Expires: 03/16/2023 Start: 01-14-2023 End: 03-16-2023 Lipid 1996 panel - Serum or Plasma LIPID PANEL BASIC Lab Routine Dyslipidemia Expected: 01/14/2023, Expires: 03/16/2023 [facility] Work Phone: Comment on above: Expected: 01/14/2023 , Expires: 03/16/2023 Start: 11-11-2022 Covid-19 Vaccine () Covid-19 Vaccine () [facility] Start: 11-11-2022 Influenza vaccination [facility] Start: 09-26-2022 End: 11-26-2022 Bacteria identified in Urine by Culture URINE CULTURE Microbiology Routine Leukocytosis, unspecified type Expected: 09/26/2022, Expires: 11/26/2022 [facility] Work Phone: Comment on above: Expected: 09/26/2022 , Expires: 11/26/2022 Start: 09-26-2022 End: 11-26-2022 Urinalysis complete panel - Urine URINALYSIS, WITH MICROSCOPIC Lab Routine Leukocytosis, unspecified type Expected: 09/26/2022, Expires: 11/26/2022 [facility] Work Phone: Comment on above: Expected: 09/26/2022 , Expires: 11/26/2022 Start: 09-23-2022 End: 11-23-2022 CREATININE BLD CREATININE BLD Lab STAT Leukocytosis, unspecified type Expected: 09/23/2022, Expires: 11/23/2022 [facility] Work Phone: Comment on above: Expected: 09/23/2022 , Expires: 11/23/2022 Start: 09-09-2022 Influenza vaccination INFLUENZA (#1) [facility] Comment on above: Postponed from 11/11 (Declined at this time) Start: 09-02-2022 End: 07-02-2023 Ct abdomen w/o & w/contrast material CT KIDNEY WO/W IVCON Radiology Routine Other specified disorders of kidney and ureter Expected: 09/02/2022 (Approximate), Expires: 07/02/2023 [facility] Work Phone: Comment on above: Expected: 09/02/2022 (Approximate), Expires: 07/02/2023 Start: 07-05-2022 End: 09-04-2022 aPTT in Platelet poor plasma by Coagulation assay ACTIVATED PTT Lab Routine Renal mass Expected: 07/05/2022, Expires: 09/04/2022 [facility] Work Phone: Comment on above: Expected: 07/05/2022 , Expires: 09/04/2022 Start: 07-05-2022 End: 09-04-2022 CBC panel - Blood by Automated count CBC Lab Routine Renal mass Expected: 07/05/2022, Expires: 09/04/2022 [facility] Work Phone: Comment on above: Expected: 07/05/2022 , Expires: 09/04/2022 Start: 07-05-2022 End: 09-04-2022 Comprehensive metabolic 2000 panel - Serum or Plasma COMP METABOLIC PANEL Lab Routine Renal mass Expected: 07/05/2022, Expires: 09/04/2022 [facility] Work Phone: Comment on above: Expected: 07/05/2022 , Expires: 09/04/2022 Start: 07-05-2022 End: 09-04-2022 PT panel - Platelet poor plasma by Coagulation assay PROTHROMBIN TIME/PT Lab Routine Renal mass Expected: 07/05/2022, Expires: 09/04/2022 [facility] Work Phone: Comment on above: Expected: 07/05/2022 , Expires: 09/04/2022 Start: 06-09-2022 End: 08-09-2022 CONFIRM BLOOD TYPE CONFIRM BLOOD TYPE Blood Bank Routine Renal mass Expected: 06/09/2022 (Approximate), Expires: 08/09/2022 [facility] Work Phone: Comment on above: Expected: 06/09/2022 (Approximate), Expires: 08/09/2022 Start: 06-09-2022 End: 06-10-2023 MR Hip - left WO contrast MRI HIP LEFT WITHOUT CONTRAST Imaging Routine Left hip pain Pain in prosthetic joint, sequela Expected: 06/09/2022, Expires: 06/10/2023 [employer] Comment on above: Expected: 06/09/2022 , Expires: 06/10/2023 Start: 06-09-2022 End: 06-10-2023 NM Bone 3 Phase Views NUC 3 PHASE LIMITED BONE SCAN Imaging Routine Left hip pain Pain in prosthetic joint, sequela Expected: 06/09/2022, Expires: 06/10/2023 [facility] Comment on above: Expected: 06/09/2022 , Expires: 06/10/2023 Start: 06-09-2022 End: 08-09-2022 TYPE AND SCREEN,30 DAY TYPE AND SCREEN,30 DAY Blood Bank Routine Renal mass Expected: 06/09/2022 (Approximate), Expires: 08/09/2022 [facility] Work Phone: Comment on above: Expected: 06/09/2022 (Approximate), Expires: 08/09/2022 Start: 05-11-2022 COVID-19 VACCINE (#1) COVID-19 VACCI NE (#1) [facility] Comment on above: Postponed from 03/10 (Declined at this time) Start: 05-11-2022 COVID-19 VACCINE (1) COVID-19 VACCIN E (1) [facility] Comment on above: Postponed from 09/08 (Declined at this time) Start: 05-03-2022 End: 07-03-2022 CBC W Auto Differential panel - Blood [facility] Work Phone: Comment on above: Expected: 05/03/2022 , Expires: 07/03/2022 Start: 05-03-2022 End: 07-03-2022 Comprehensive metabolic 2000 panel - Serum or Plasma [facility] Work Phone: Comment on above: Expected: 05/03/2022 , Expires: 07/03/2022 Start: 03-13-2022 ADVANCE DIRECTIVE DISCUSSION ADVANCE DIRECTIVE DISCUSSION [facility] Start: 03-13-2022 DEPRESSION ASSESSMENT DEPRESSION ASS ESSMENT [facility] Start: 02-17-2022 End: 04-19-2022 25-hydroxyvitamin D3 [Mass/volume] in Serum or Plasma VITAMIN D 25 HYDROXY Lab Routine Vitamin D deficiency Expected: 02/17/2022, Expires: 04/19/2022 [facility] Work Phone: Comment on above: Expected: 02/17/2022 , Expires: 04/19/2022 Start: 02-17-2022 End: 04-19-2022 CBC W Auto Differential panel - Blood CBC + DIFF Lab Routine Hyperglycemia Expected: 02/17/2022, Expires: 04/19/2022 [facility] Work Phone: Comment on above: Expected: 02/17/2022 , Expires: 04/19/2022 Start: 02-17-2022 End: 04-19-2022 Cobalamin (Vitamin B12) [Mass/volume] in Serum or Plasma VITAMIN B12 BLOOD Lab Routine Vitamin B12 deficiency Expected: 02/17/2022, Expires: 04/19/2022 [facility] Work Phone: Comment on above: Expected: 02/17/2022 , Expires: 04/19/2022 Start: 02-17-2022 End: 04-19-2022 Comprehensive metabolic 2000 panel - Serum or Plasma COMP METABOLIC PANEL Lab Routine Hyperglycemia Expected: 02/17/2022, Expires: 04/19/2022 [facility] Work Phone: Comment on above: Expected: 02/17/2022 , Expires: 04/19/2022 Start: 02-17-2022 End: 04-19-2022 Ferritin [Mass/volume] in Serum or Plasma FERRITIN BLD Lab Routine Other iron deficiency anemia Expected: 02/17/2022, Expires: 04/19/2022 [facility] Work Phone: Comment on above: Expected: 02/17/2022 , Expires: 04/19/2022 Start: 02-17-2022 End: 04-19-2022 Iron and Iron binding capacity panel - Serum or Plasma IRON + TIBC Lab Routine Other iron deficiency anemia Expected: 02/17/2022, Expires: 04/19/2022 [facility] Work Phone: Comment on above: Expected: 02/17/2022 , Expires: 04/19/2022 Start: 12-15-2021 End: 02-14-2022 25-hydroxyvitamin D3 [Mass/volume] in Serum or Plasma VITAMIN D 25 HYDROXY Lab Routine Vitamin D deficiency Expected: 12/15/2021, Expires: 02/14/2022 [facility] Work Phone: Comment on above: Expected: 12/15/2021 , Expires: 02/14/2022 Start: 12-15-2021 End: 02-14-2022 CBC W Auto Differential panel - Blood CBC + DIFF Lab Routine Vitamin B12 deficiency Expected: 12/15/2021, Expires: 02/14/2022 [facility] Work Phone: Comment on above: Expected: 12/15/2021 , Expires: 02/14/2022 Start: 12-15-2021 End: 02-14-2022 Cobalamin (Vitamin B12) [Mass/volume] in Serum or Plasma VITAMIN B12 BLOOD Lab Routine Vitamin B12 deficiency Other iron deficiency anemia Expected: 12/15/2021, Expires: 02/14/2022 [facility] Work Phone: Comment on above: Expected: 12/15/2021 , Expires: 02/14/2022 Start: 12-15-2021 End: 02-14-2022 Comprehensive metabolic 2000 panel - Serum or Plasma COMP METABOLIC PANEL Lab Routine Other iron deficiency anemia Expected: 12/15/2021, Expires: 02/14/2022 [facility] Work Phone: Comment on above: Expected: 12/15/2021 , Expires: 02/14/2022 Start: 12-15-2021 End: 02-14-2022 Ferritin [Mass/volume] in Serum or Plasma FERRITIN BLD Lab Routine Vitamin B12 deficiency Expected: 12/15/2021, Expires: 02/14/2022 [facility] Work Phone: Comment on above: Expected: 12/15/2021 , Expires: 02/14/2022 Start: 12-15-2021 End: 02-14-2022 Iron and Iron binding capacity panel - Serum or Plasma IRON + TIBC Lab Routine Vitamin B12 deficiency Expected: 12/15/2021, Expires: 02/14/2022 [facility] Work Phone: Comment on above: Expected: 12/15/2021 , Expires: 02/14/2022 Start: 11-11-2021 Influenza vaccination [facility] Start: 09-09-2021 Influenza vaccination INFLUENZA (#1) [facility] Comment on above: Postponed from 11/11 (Declined at this time) Start: 08-04-2021 Adult depression scr eening assessment DEPRESSION SCREENING [facility] Start: 05-05-2021 Pneumococcal vaccination PNEUM OCOCCAL VACCINE SERIES (2 - PCV) [facility] Start: 05-05-2021 Pneumococcal Vaccine : 50+ (2 of 2 - PCV) Pneumococcal Vaccine: 50+ (2 of 2 - PCV) [facility] Start: 05-05-2021 Pneumococcal Vaccine : 65+ (2 - PCV) Pneumococcal Vaccine: 65+ (2 - PCV) [facility] Start: 05-05-2021 Pneumococcal Vaccine : 65+ (2 of 2 - PCV) Pneumococcal Vaccine: 65+ (2 of 2 - PCV) [facility] Start: 05-05-2021 PNEUMOCOCCAL: 65+ (2 - PCV) PNEUMOCOCCAL: 65+ (2 - PCV) [facility] Start: 03-13-2021 ADVANCE DIRECTIVE DISCUSSION ADVANCE DIRECTIVE DISCUSSION [facility] Start: 03-13-2021 DEPRESSION ASSESSMENT DEPRESSION ASS ESSMENT [facility] Start: 05-17-2018 End: 05-17-2018 Office Visit [facility] Comment on above: Hx of total hip arth roplasty, left (Primary Dx) Start: 2017 RSV Vaccine (1 - 1-d ose 75+ series) RSV Vaccine (1 - 1-dose 75+ series) [facility] Start: 09-06-2016 FECAL OCCULT BLOOD FECAL OCCULT BLOO D [facility] Start: 06-19-2009 SHINGRIX VACCINE (2 of 3) COLMENARES GRIX VACCINE (2 of 3) [facility] Start: 09-09-2007 Pneumococcal vaccination PNEUM OCOCCAL VACCINE SERIES (1 of 2 - PCV13) [facility] Start: 05-19-2007 Urine microalbumin profile [facility] Start: 2002 RSV Vaccine (1 - 1-d ose 60+ series) RSV Vaccine (1 - 1-dose 60+ series) [facility] Start: 1992 Colonoscopy COLON CANCER S CREENING DISCUSSION [facility] Start: 1992 Protein mass conc COLON CANCER SCREENING DISCUSSION [facility] Start: 1992 Zoster vaccine hzv l yasemin for subcutaneous use ZOSTER (SHINGLES) VACCINE (1 of 2) [facility] Start: 09-09-1987 COLOGUARD (FIT-DNA) COLOGUARD (FIT-D NA) [facility] Start: 09-09-[address] COLONOGRAPHY [facility] Start: 09-09-1987 Screening for malign ant neoplasm of colon [facility] Start: 09-09-1987 SIGMOIDOSCOPY SIGMOIDOSCOPY [facility] Start: 1982 Fasting lipid profile LIPID SCREENIN G [facility] Start: 1982 Protein mass conc MAMMOGRAM SC SLOAN DISCUSSION [facility] Start: 1982 Screening for malign ant neoplasm of breast MAMMOGRAM SCREENING DISCUSSION [facility] Start: 1982 Screening mammography MAMMOGRA M SCREENING DISCUSSION [facility] Start: 09-09-1963 Screening for malign ant neoplasm of cervix [facility] Start: 1961 Third diphtheria, te tanus and acellular pertussis (DTaP) vaccination TDAP (ADULT) [facility] Start: 1960 HEPATITIS C SCREENING HEPATITIS C SC [facility] Start: 1960 Tetanus vaccination TETANUS [facility] Start: 03-10-1943 COVID-19 VACCINE (#1) COVID-19 VACCI NE (#1) [facility] Start: 1942 Hepatitis C screening HEPATITI S C VIRUS SCREENING [facility] Start: 1942 Screening for osteoporosis DEXA SCAN DISCUSSION [facility] Start: 1942 Tetanus vaccination TETANUS [facility] Bacteria identified in Urine by Culture URINE CULTURE Microbiology Routine Renal mass 06/29/2022 1:43 PM EDT [facility] Work Phone: Bacteria identified in Urine by Culture URINE CULTURE Microbiology Routine Leukocytosis, unspecified type 09/27/2022 11:07 AM EDT [facility] Work Phone: End: 06-15-2022 COLONOSCOPY DIAGNOSTIC COLONOSCOPY DIAGNOSTIC Endoscopy Routine Blood in stool 1 Occurrences starting 06/16/2021 until 06/15/2022 [facility] Work Phone: Comment on above: 1 Occurrences starti ng 06/16/2021 until 06/15/2022 End: 10-23-2023 Ct abdomen & pelvis w/contrast material CT ABD/PEL W IVCON Radiology STAT Leukocytosis, unspecified type 1 Occurrences starting 09/23/2022 until 10/23/2023 [facility] Work Phone: Comment on above: 1 Occurrences starti ng 09/23/2022 until 10/23/2023 End: 06-12-2023 Ct abdomen w/o & w/contrast material CT KIDNEY WO/W IVCON Radiology Routine Other specified disorders of kidney and ureter Renal mass Right sided abdominal pain 1 Occurrences starting 05/13/2022 until 06/12/2023 [facility] Work Phone: Comment on above: 1 Occurrences starti ng 05/13/2022 until 06/12/2023 End: 11-09-2023 Ct abdomen w/o & w/contrast material CT KIDNEY WO/W IVCON Radiology Routine Other specified disorders of kidney and ureter 1 Occurrences starting 10/10/2022 until 11/09/2023 [facility] Work Phone: Comment on above: 1 Occurrences starti ng 10/10/2022 until 11/09/2023 End: 11-20-2023 Ct abdomen w/o & w/contrast material CT KIDNEY WO/W IVCON Radiology STAT Leukocytosis, unspecified type Acquired cyst of kidney Other specified disorders of kidney and ureter Renal mass, right 1 Occurrences starting 10/21/2022 until 11/20/2023 [facility] Work Phone: Comment on above: 1 Occurrences starti ng 10/21/2022 until 11/20/2023 End: 06-03-2024 CT Kidney WO and W contrast IV CT KIDNEY WO/W IVCON Radiology Routine Renal mass, right 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) 1 Occurrences starting 05/05/2023 until 06/03/2024 [facility] Work Phone: Comment on above: 1 Occurrences starti ng 05/05/2023 until 06/03/2024 CT Kidney WO and W contrast IV CT KIDNEY WO/W IVCON Radiology Routine Renal mass, right 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) 07/12/2023 11:33 AM EDT [facility] Work Phone: End: 06-10-2023 ECG COMPLETE ECG COMPLETE ECG Routine Renal mass 1 Occurrences starting 06/09/2022 until 06/10/2023 [facility] Work Phone: Comment on above: 1 Occurrences starti ng 06/09/2022 until 06/10/2023 End: 12-15-2022 Echocardiography ECHO Cardiology Routine Nonrheumatic mitral valve regurgitation 1 Occurrences starting 12/15/2021 until 12/15/2022 [facility] Work Phone: Comment on above: 1 Occurrences starti ng 12/15/2021 until 12/15/2022 End: 06-15-2022 EGD DIAGNOSTIC EGD DIAGNOSTIC Endoscopy Routine Blood in stool 1 Occurrences starting 06/16/2021 until 06/15/2022 [facility] Work Phone: Comment on above: 1 Occurrences starti ng 06/16/2021 until 06/15/2022 End: 07-17-2023 Hepatobil syst imag inc gb w/pharma intervenj NM HEPATOBILIARY W EF AND/OR RX Radiology Routine Calculus of gallbladder without cholecystitis without obstruction 1 Occurrences starting 06/17/2022 until 07/17/2023 [facility] Work Phone: Comment on above: 1 Occurrences starti ng 06/17/2022 until 07/17/2023 End: 11-20-2023 Hepatobil syst imag inc gb w/pharma intervenj NM HEPATOBILIARY W EF AND/OR RX Radiology Routine Calculus of gallbladder without cholecystitis without obstruction 1 Occurrences starting 10/21/2022 until 11/20/2023 [facility] Work Phone: Comment on above: 1 Occurrences starti ng 10/21/2022 until 11/20/2023 End: 11-06-2025 Liver stiffness by US.transient elastography US ELASTOGRAPHY LIVER Radiology Routine Fatty liver 1 Occurrences starting 10/07/2024 until 11/06/2025 [facility] Comment on above: 1 Occurrences starti ng 10/07/2024 until 11/06/2025 MATT SCREENING MATT SCREENING Radiology Routine Encounter for screening mammogram for malignant neoplasm of breast 02/13/2023 2:11 PM EST [facility] Work Phone: End: 04-28-2025 MG Breast Screening MATT SCREENING Radiology Routine Encounter for screening mammogram for malignant neoplasm of breast 1 Occurrences starting 03/29/2024 until 04/28/2025 [facility] Work Phone: Comment on above: 1 Occurrences starti ng 03/29/2024 until 04/28/2025 MG Breast Screening MATT SCREENIN G Radiology Routine Encounter for screening mammogram for malignant neoplasm of breast 05/30/2024 1:11 PM EDT [facility] Work Phone: End: 08-25-2024 MR Abdomen WO and W contrast IV MRI ABDOMEN WO/W IVCON Radiology Routine History of renal cell cancer 1 Occurrences starting 07/27/2023 until 08/25/2024 [facility] Comment on above: 1 Occurrences starti ng 07/27/2023 until 08/25/2024 MR Abdomen WO and W contrast IV MRI ABDOMEN WO/W IVCON Radiology Routine History of renal cell cancer 08/22/2024 10:11 AM EDT [facility] Work Phone: End: 06-23-2022 MR Hip - left WO contrast [facility] Comment on above: 1 Occurrences starti ng 06/23/2022 until 06/23/2022 End: 11-13-2025 MR Kidney WO and W contrast IV MRI KIDNEY WO/W IVCON Radiology Routine Other specified disorders of kidney and ureter 1 Occurrences starting 10/14/2024 until 11/13/2025 [facility] Work Phone: Comment on above: 1 Occurrences starti ng 10/14/2024 until 11/13/2025 End: 10-26-2023 Mri abdomen w/o & w/contrast material MRI PANC/SUSANA WO/W IVCON Radiology CAREN Contrast media allergy Pancreatic lesion 1 Occurrences starting 09/26/2022 until 10/26/2023 [facility] Work Phone: Comment on above: 1 Occurrences starti ng 09/26/2022 until 10/26/2023 End: 01-14-2023 Mri any jt lower extrem w/o contrast matrl MRI HIP WO IVCON LT Radiology Routine Left hip pain Antalgic gait History of hip replacement, total, left Limping 1 Occurrences starting 12/15/2021 until 01/14/2023 [facility] Work Phone: Comment on above: 1 Occurrences starti ng 12/15/2021 until 01/14/2023 End: 06-23-2022 NM Bone 3 Phase Views [facility] Comment on above: 1 Occurrences starti ng 06/23/2022 until 06/23/2022 Radiography for bone length studies XR BONE LENGTH STUDY Imaging Routine Pain in prosthetic joint, sequela 06/09/2022 11:44 AM EDT [facility] End: 08-22-2023 Radiologic exam chest 2 views XR CHEST 2V FRONTAL/LAT Radiology Routine Renal cell carcinoma, unspecified laterality (HCC) 1 Occurrences starting 07/25/2022 until 08/22/2023 [facility] Work Phone: Comment on above: 1 Occurrences starti ng 07/25/2022 until 08/22/2023 Screening mammograph y bi 2-view breast inc cad MATT SCREENING Radiology Routine Visit for screening mammogram Ordered: 12/13/2021 [facility] Work Phone: Comment on above: Ordered: 12/13/2021 Skeletal X-ray of pe lvis and hip XR HIP WITH PELVIS LEFT Imaging Routine Hx of total hip arthroplasty, left 05/17/2018 8:49 AM EST [facility] Urinalysis complete panel - Urine URINALYSIS, WITH MICROSCOPIC Lab Routine Leukocytosis, unspecified type 09/27/2022 11:07 AM EDT [facility] Work Phone: End: 07-10-2023 US ABDOMEN COMPLETE US ABDOMEN COMPLETE Radiology CAREN Renal mass, right Generalized abdominal pain Calculus of gallbladder without cholecystitis without obstruction Nausea 1 Occurrences starting 06/10/2022 until 07/10/2023 [facility] Work Phone: Comment on above: 1 Occurrences starti ng 06/10/2022 until 07/10/2023 End: 11-06-2025 US Abdomen RUQ US ABD RIGHT UPPER QUADRANT Radiology Routine Fatty liver 1 Occurrences starting 10/07/2024 until 11/06/2025 [facility] Work Phone: Comment on above: 1 Occurrences starti ng 10/07/2024 until 11/06/2025 End: 06-02-2023 Us abdominal real time w/image limited US ABD RT UPPER QUADRANT Radiology Routine Right sided abdominal pain 1 Occurrences starting 05/03/2022 until 06/02/2023 [facility] Work Phone: Comment on above: 1 Occurrences starti ng 05/03/2022 until 06/02/2023 End: 07-10-2023 Us pelvic nonobstetric image dcmtn limited/f/u US FEMALE PELVIS TRANSABD LTD Radiology CAREN Renal mass, right Generalized abdominal pain Calculus of gallbladder without cholecystitis without obstruction Nausea 1 Occurrences starting 06/10/2022 until 07/10/2023 [facility] Work Phone: Comment on above: 1 Occurrences starti ng 06/10/2022 until 07/10/2023 End: 07-10-2023 Us transvaginal US FEMALE PELVIS TRANSVAG Radiology CAREN Renal mass, right Generalized abdominal pain Calculus of gallbladder without cholecystitis without obstruction Nausea 1 Occurrences starting 06/10/2022 until 07/10/2023 [facility] Work Phone: Comment on above: 1 Occurrences starti ng 06/10/2022 until 07/10/2023 End: 06-02-2023 XR ABDOMEN 1V SUPINE XR ABDOMEN 1V SUPINE Radiology Routine Right sided abdominal pain 1 Occurrences starting 05/03/2022 until 06/02/2023 [facility] Work Phone: Comment on above: 1 Occurrences starti ng 05/03/2022 until 06/02/2023 XR ABDOMEN 1V SUPINE XR ABDOMEN 1V SUPINE Radiology Routine Right sided abdominal pain 05/03/2022 12:15 PM EST [facility] Work Phone: End: 06-03-2024 XR Chest PA and Lateral XR CHEST 2V FRONTAL/LAT Radiology Routine Renal mass, right 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) 1 Occurrences starting 05/05/2023 until 06/03/2024 [facility] Work Phone: Comment on above: 1 Occurrences starti ng 05/05/2023 until 06/03/2024 XR Chest PA and Lateral XR CHEST 2V FRONTAL/LAT Radiology Routine Renal mass, right 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) 07/12/2023 10:38 AM EDT [facility] Work Phone: End: 08-25-2024 XR Chest PA and Lateral XR CHEST 2V FRONTAL/LAT Radiology Routine History of renal cell cancer 1 Occurrences starting 07/27/2023 until 08/25/2024 [facility] Comment on above: 1 Occurrences starti ng 07/27/2023 until 08/25/2024 XR Chest PA and Lateral XR CHEST 2V FRONTAL/LAT Radiology Routine History of renal cell cancer 08/22/2024 9:06 AM EDT [facility] Work Phone: XR Knee - left 3 Views XR KNEE L EFT 3 VIEWS Imaging Routine Pain in prosthetic joint, sequela 06/09/2022 11:44 AM [facility] XR Pelvis and Hip - left Views XR HIP WITH PELVIS LEFT Imaging Routine Left hip pain 06/09/2022 10:19 AM EDT [employer] [facility] Immunizations Immunization Date Immunization Notes Care Provider Fa cili 05-05-2020 pneumococcal polysaccharide vaccine, 23 valent Jagjit Matias DO Work Phone: [facility] Work Phone: 05-05-2020 zoster vaccine, recombinant, adjuvanted, (SHINGRIX, PF,) 50 mcg/0.5 mL injection Xr Michelle Work Phone: [facility] [facility] 01-09-2018 influenza, high dose seasonal, preservative-free Jagjit Minoron DO Work Phone: [facility] Work Phone: 01-09-2018 influenza virus vacc ine, unspecified formulation Frank Plata MD Work Phone: [facility] 12-25-2012 influenza virus vacc ine, unspecified formulation Jagjit Matias DO Work Phone: [facility] 04-24-2009 zoster vaccine, live Jagjit Matias DO Work Phone: [facility] Work Phone: 01-26-2009 pneumococcal polysaccharide vaccine, 23 valent Jagjit Matias DO Work Phone: [facility] Work Phone: 01-09-2009 influenza virus vacc ine, unspecified formulation Jagjit Matias DO Work Phone: [facility] Work Phone: 05-18-2007 tetanus and diphther ia toxoids, adsorbed, preservative free, for adult use (2 Lf of tetanus toxoid and 2 Lf of diphtheria toxoid) Jagjit Matias DO Work Phone: [facility] 04-10-2007 influenza virus vacc ine, unspecified formulation Jagjit Matias DO Work Phone: [facility] Work Phone: Payers Date Payer Category Payer Self-pay 2021 Medicare AETNA MEDICARE A ETNA MEDICARE PPO [id number] 2021-Present [phone] [address] [place] [address] O [id number] 2021 Medicare (Managed Care) AETNA ME ANAND [id number] 2021 Medicare [id number] 2020 Medicare [id number] 2017 Medicare MEDICARE AETNA H MO [place] PPO MEDICARE AETNA PPO xxxxxxxx 2017-Present [id number] 2006 Unknown [facility] [id number] 2006-Present [phone] [facility] [address] [facility] [id number] 1942 Unknown [id number] 1942 Unknown [id number] 1942 Unknown [id number] 1942 Unknown [id number] 1942 Unknown [id number] 1942 Unknown [id number] 983 1942 Unknown [id number] Unknown [id number] 462 Social History Date Type Detail Facility Start: 01-23-2012 End: 05-17-2018 Tobacco smoking status NHIS Never smoker [facility] Work Phone: Start: 1940 Sex Assigned At Not on file O [facility] Start: 11-06-2020 End: 10-07-2024 Alcohol intake Current non-drinker of alcohol (finding) [facility] Start: 07-05-2020 End: 01-05-2022 Exposure to SARS-CoV-2 (event) Not sure [facility] Start: 01-23-2012 End: 06-09-2022 Tobacco use and exposure Smokeless tobacco non-user [facility] Start: 07-07-2022 History SDOH Financial 4 [facility] Start: 07-07-2022 History SDOH Food Worry 1 [facility] Start: 07-07-2022 History SDOH Transpo rt Med 2 [facility] Start: 07-21-2022 End: 09-22-2022 History of Social function [facility] Start: 07-21-2022 End: 09-22-2022 Tobacco use panel [facility] How hard is it for y ou to pay for the very basics like food, housing, medical care, and heating Not very hard [facility] Adult Depression Screening Assessment 0 [facility] Work Phone: (I/We) worried ruby er (my/our) food would run out before (I/we) got money to buy more. Never true [facility] In the past 12 month s, was there a time when you were not able to pay the mortgage or rent on time? No [facility] How often to you hav e a drink containing alcohol? Never [facility] Medical Equipment Procedure Code Equipment Code Equipment Origin al Text Equipment Identifier Dates Small Socket Ins ert 32 Mm Neutral [id number] Start: 06-19-2018 Head Rsp 32mm -4 mm Offset Glenoid Retain Screw - [id number] Start: 06-19-2018 Stem Humeral Altivate Reverse Small Shell Sz 33f868la - [id number] Start: 06-19-2018 Baseplate Rsp P2 30mm Glenoid Sterile - [id number] Start: 06-19-2018 Screw Rsp 5mm 18 mm Bone Lock Glenoid Baseplate Shoulder - [id number] Start: 06-19-2018 Screw Rsp 5mm 14 mm Bone Lock Glenoid Baseplate Shoulder - [id number] Start: 06-19-2018 Screw Rsp 5mm 26 mm Bone Lock Glenoid Baseplate Shoulder - [id number] Start: 06-19-2018 Screw Rsp 5mm 30 mm Bone Lock Glenoid Baseplate Shoulder - [id number] Start: 06-19-2018 Functional Status Date Assessment Result Facility 10-07-2024 Total score [AUDIT-C] 0 10/08/19 7:48 AM EDT Elizabeth Watts LPN [facility] 06-20-2018 Are you deaf, or do you have serious difficulty hearing No 06/20/2018 2:20 PM EDT Parminder Vance RN No [facility] 06-20-2018 Are you blind, or do you have serious difficulty seeing, even when wearing glasses No 06/20/2018 2:20 PM EDT Parminder Vance RN No [facility] 06-20-2018 Do you have serious difficulty walking or climbing stairs No 06/20/2018 2:20 PM EDT Parminder Vance RN No [facility] 06-20-2018 Do you have difficul ty dressing or bathing No 06/20/2018 2:20 PM EDT Parminder Vance RN No [facility] 06-20-2018 Because of a physica l, mental, or emotional condition, do you have difficulty doing errands alone such as visiting a physician's office or shopping No 06/20/2018 2:20 PM EDT Parminder Vance RN No [facility] Mental Status Date Assessment Result Facility 06-20-2018 Because of a physica l, mental, or emotional condition, do you have serious difficulty concentrating, remembering, or making decisions No 06/20/2018 2:20 PM EDT Parminder Vance RN No [facility] Clinical Notes 11-03-2014 to 10-14-2024 Zora Hernandes APRN.[facility] - 10/14/2024 1:58 PM EDTTeleetelvina Rodriguez - Danya Jones RN - 10/09/2024 9:32 AM EDTTelephone Encounter - Danya Jones RN - 10/09/2024 9:32 AM EDT Note Date & Type Note Facility 10-14-2024 Note HNO ID: [id number] Author: ZORA HERNANDES APRN.TECHNICAL SALES MANAGER Service: ? Author Type: Nurse Practitioner Type: Progress Notes Filed: 10/14/2024 14:18 Note Text: [facility] ESTABLISHED PATIENT VIRTUAL VISIT This is a virtual visit using [employer] Video Visit. It required patient-provider interaction for the medical decision making as documented below. I have communicated my name and active licensure. The patient's identity and physical location were verified at the time of this visit. Either the patient or their legal operations support representative has been informed of the risks [...] No results found for: PSA URINALYSIS: Specific [place], Ur Date Value Ref Range Status 07/27/2023 [...] Social History T (more content not included)... [facility] 10-14-2024 History of Present illness Narrative [facility] ESTABLISHED PATIENT VIRTUAL VISIT This is a virtual visit using [employer] Video Visit. It required patient-provider interaction for the medical decision making as documented below. I have communicated my name and active licensure. The patient's identity and physical location were verified at the time of this visit. 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 MRI abdomen with 2 1cm enhancing lesions ont he left kidney PLAN MRI Kidney in 3 months and follow up after to discuss I spent a total of 30 minutes on the date of the service which included preparing to see the patient, dgin-gl-bhih patient care, completing clinical documentation, counseling and educating the patient/family/caregiver, ordering medications, tests, or procedures, and independently interpreting results (not separately reported). Zora Hernandes APRN.CNP documented in this encounter [facility] 10-09-2024 Telephone encounter Note Patient calls to report that [facility] hasn't received the orders for ultrasound abdomen and elastography liver. Faxed to [phone] per request. Danya Jones RN [facility] 10-09-2024 Miscellaneous Notes Patient calls to report that [facility] hasn't received the orders for ultrasound abdomen and elastography liver. Faxed to [phone] per request. Danya Jones RN documented in this encounter [facility] 10-07-2024 Note HNO ID: [id number] Author: JAGJIT MATIAS, DO Service: ? Author [...] SPEC WHEN PFRMD 07/17/2014 Colonoscopy EGD W/O [facility] SPEC VARICIES INJ 06/24/2021 ESOPHAGOGASTRODUODENOSCOPY TRANSORAL [...] Discussed risks, benefits, (more content not included)... [facility] 10-07-2024 History of Present illness Narrative CC: [...] SPEC WHEN PFRMD 07/17/2014 Colonoscopy EGD W/O [facility] SPEC VARICIES INJ 06/24/2021 ESOPHAGOGASTRODUODENOSCOPY TRANSORAL [...] plan. See patient instructions. Jagjit Matias DO [address] [place] [address] Images from the original note were not [...] Jagjit Matias DO documented in this encounter [facility] 10-07-2024 Instructions Jagjit Matias DO - 10/07/2024 8:13 AM EDT Start on Vitamin E supplement 200-400 mg a day to help the fatty liver Lets check Elastography test of the liver at [facility] [phone] documented in this encounter [facility] 10-07-2024 Note HNO ID: [id number] Author: JAGJIT MATIAS DO Service: ? Author [...] loss. BMI 27.07 kg/(m2) Jagjit Matias DO [facility] 08-22-2024 History of Present illness Narrative Radiology [...] PATIENT PRESENTS WITH AN IMPLANTABLE OR ATTACHED CASHIER RECEPTIONIST: No ALLERGIES: Reviewed and unchanged CONTRAST ALLERGY: NO. EXAM: MRI - CONTRAST TYPE: GROUP II PERIPHERAL IV DATA: Ambulatory: A peripheral IV was started in the Left with a Angio cath: 22 gauge. RADIOLOGY DEPARTMENT: MR; Exam(s) Completed: Body: Renal. Lavender Administered: No SIGNATURE: RT Lorelei(R) PATIENT NAME: Letha Castro DATE: August 22, 2024 TIME: 9:48 AM documented in this encounter [facility] 08-22-2024 Note HNO ID: [id number] Author: AMELIE MELISSA RT(R) Service: ? Author [...] PATIENT PRESENTS WITH AN IMPLANTABLE OR ATTACHED CASHIER RECEPTIONIST: No ALLERGIES: Reviewed and unchanged CONTRAST ALLERGY: NO. EXAM: MRI - CONTRAST TYPE: GROUP II PERIPHERAL IV DATA: Ambulatory: A peripheral IV was started in the Left with a Angio cath: 22 gauge. RADIOLOGY DEPARTMENT: MR; Exam(s) Completed: Body: Renal. [place]ender Administered: No SIGNATURE: Amelie Melissa, RT(R) PATIENT NAME: Letha Castro DATE: August 22, 2024 TIME: 9:48 AM [facility] 08-22-2024 History of Present illness Narrative Radiology [...] PATIENT PRESENTS WITH AN IMPLANTABLE OR ATTACHED CASHIER RECEPTIONIST: No RADIOLOGY DEPARTMENT: General X-ray: Exam(s) Completed: Chest X-Ray PERIPHERAL IV DATA: Not applicable SIGNED BY: Bharat Jolly August 22, 2024 8:55 AM documented in this encounter [facility] 08-22-2024 Note HNO ID: [id number] Author: VELMA VALLE Tech Service: ? Author [...] PATIENT PRESENTS WITH AN IMPLANTABLE OR ATTACHED CASHIER RECEPTIONIST: No RADIOLOGY DEPARTMENT: General X-ray: Exam(s) Completed: Chest X-Ray PERIPHERAL IV DATA: Not applicable SIGNED BY: Bharat Jolly August 22, 2024 8:55 AM [facility] 08-09-2024 Note HNO ID: [id number] Author: ROCKY LAROSE PT Service: ? Author [...] and treatment included: Therapeutic exercise, Neuromuscular re-education, Self-halfway management, Gait training, Patient/Family/Caregiver Education, Body mechanics training, and General conditioning. Updated: 08/09/24 Goals for Episode of Care: established 07/10/24 Patient will report no falls. - MET Improve score on Timed Up and Go Test to 8.54 seconds to reflect decreased fall risk. - MET Improve performance on 4 Stage Balance Test to symmetrical SLS to reflect decreased fall risk. - MET [place] in home exercise program including cardiovascular exercise. [...] (sec): 59 sec TREATMENT: Therapeutic Exercise: 1: PageStitchFit StepOne seat #11 x6 minutes (1:1 throughout. [...] Stop Time : 1155 Rocky Larose PT [facility] 08-09-2024 History of Present illness Narrative Images [...] and treatment included: Therapeutic exercise, Neuromuscular re-education, Self-halfway management, Gait training, Patient/Family/Caregiver Education, Body mechanics training, and General conditioning. Updated: 08/09/24 Goals for Episode of Care: established 07/10/24 Patient will report no falls. - MET Improve score on Timed Up and Go Test to 8.54 seconds to reflect decreased fall risk. - MET Improve performance on 4 Stage Balance Test to symmetrical SLS to reflect decreased fall risk. - MET [place] in home exercise program including cardiovascular exercise. [...] (sec): 59 sec TREATMENT: Therapeutic Exercise: 1: PageStitchFit StepOne seat #11 x6 minutes (1:1 throughout. [...] Rocky Larose PT documented in this encounter [facility] 08-08-2024 Note HNO ID: [id number] Author: ROCKY LAROSE PT Service: ? Author [...] LEVEL OF FUNCTION: TREATMENT: Therapeutic Exercise: 1: PageStitchFit StepOne seat #11 x6 minutes (1:1 throughout. [...] Stop Time : 1128 Rocky Larose PT [facility] 08-08-2024 History of Present illness Narrative Episode [...] LEVEL OF FUNCTION: TREATMENT: Therapeutic Exercise: 1: PageStitchFit StepOne seat #11 x6 minutes (1:1 throughout. [...] Rocky Larose PT documented in this encounter [facility] 07-29-2024 Note HNO ID: [id number] Author: ROCKY LAROSE PT Service: ? Author [...] Stop Time : 1020 Rocky Larose PT [facility] 07-29-2024 History of Present illness Narrative Episode [...] Rocky Larose PT documented in this encounter [facility] 07-26-2024 Note HNO ID: [id number] Author: ROCKY LAROSE PT Service: ? Author [...] LEVEL OF FUNCTION: TREATMENT: Therapeutic Exercise: 1: Odimax StepOne seat #11 x6 minutes (1:1 throughout. [...] Stop Time : 1551 Rocky Larose PT [facility] 07-26-2024 History of Present illness Narrative Episode [...] LEVEL OF FUNCTION: TREATMENT: Therapeutic Exercise: 1: PageStitchFit StepOne seat #11 x6 minutes (1:1 throughout. [...] Rocky Larose PT documented in this encounter [facility] 07-25-2024 Note HNO ID: [id number] Author: ROCKY LAROSE PT Service: ? Author [...] Stop Time : 1048 Rocky Larose PT [facility] 07-25-2024 History of Present illness Narrative Episode [...] LEVEL OF FUNCTION: TREATMENT: Therapeutic Exercise: 1: Odimax StepOne seat #11 x5 minutes (1:1 throughout. [...] Stop Time : 1048 Rocky Larose PT Program_ID:[email or web address] Access Code: [email or web address] URL: [email or web address] Date: 07-25-2024 Prepared By: Rocky Larose Program Notes Exercises - Sidelying Hip Abduction - 2 x daily - 7 x weekly - 2 sets - 10 reps - Clamshell - 2 x daily - 7 x weekly - 2 sets - 10 reps documented in this encounter [facility] 07-10-2024 Note HNO ID: [id number] Author: ROCKY LAROSE PT Service: ? Author [...] symmetrical SLS to reflect decreased fall risk. [place] in home exercise program including cardiovascular exercise. [...] Planned: 12 Planned Treatment Interventions: Therapeutic exercise (71480), Neuromuscular re-education (29761), Manual therapy (90713), Therapeutic activities (35459), Self-halfway management (80522), Gait Training (12789), Patient/Family/Caregiver Education, Body Mechanics Training, General Conditioning, [...] (sec): 22 sec (more content not included)... [facility] 07-10-2024 History of Present illness Narrative Images from the original note were not included. Episode Visit Count: 1 Therapist That Will Accept/Oversee The Plan Of Care: oRcky Larose PT Start of Care Date: 07/10/24 [...] symmetrical SLS to reflect decreased fall risk. [place] in home exercise program including cardiovascular exercise. [...] Planned: 12 Planned Treatment Interventions: Therapeutic exercise (29231), Neuromuscular re-education (39618), Manual therapy (36971), Therapeutic activities (43576), Self-halfway management (87820), Gait Training (23226), Patient/Family/Caregiver Education, Body Mechanics Training, General Conditioning, [...] Rocky Larose PT documented in this encounter [facility] 06-03-2024 Miscellaneous Notes Spoke with pt gave information provided. Pt voices understanding. Please inform patient that her mammogram is normal/negative. She will need routine screening mammogram in 1 year. Thanks Jagjit Matias DO' documented in this encounter [facility] 06-03-2024 Telephone encounter Note Spoke with pt gave information provided. Pt voices understanding. [facility] 06-03-2024 Telephone encounter Note Please inform patient that her mammogram is normal/negative. She will need routine screening mammogram in 1 year. Thanks CHERIE Zavala [facility] 05-30-2024 History of Present illness Narrative Radiology [...] PATIENT PRESENTS WITH AN IMPLANTABLE OR ATTACHED CASHIER RECEPTIONIST: No RADIOLOGY DEPARTMENT: Mammography PERIPHERAL IV DATA: Not applicable SIGNED BY: Lion Sarah May 30, 2024 1:35 PM documented in this encounter [facility] 05-30-2024 Note HNO ID: [id number] Author: RAJANI GUERRERO Mammo Tech Service: ? Author Type: Certified Cytotechnologist Type: Progress Notes Filed: 05/30/2024 13:35 Note [...] PATIENT PRESENTS WITH AN IMPLANTABLE OR ATTACHED CASHIER RECEPTIONIST: No RADIOLOGY DEPARTMENT: Mammography PERIPHERAL IV DATA: Not applicable SIGNED BY: Lion Sarah May 30, 2024 1:35 PM [facility] 03-29-2024 Note HNO ID: [id number] Author: JAGJIT MATIAS, DO Service: ? Author [...] with supplements or by diet (goal of 6370-2976 mg/day - MATT SCREENING 3. Vitamin D [...] ICD10: R26.9 Stab (more content not included)... [facility] 03-29-2024 History of Present illness Narrative CC: [...] SPEC WHEN PFRMD 07/17/2014 Colonoscopy EGD W/O [facility] SPEC VARICIES INJ 06/24/2021 ESOPHAGOGASTRODUODENOSCOPY TRANSORAL [...] with supplements or by diet (goal of 3475-1767 mg/day - [facility] SCREENING 3. Vitamin D deficiency - ICD9: [...] See patient instructions. Jagjit Matias DO [address] [place] [address] documented in this encounter [facility] 03-25-2024 Telephone encounter Note Pt. informed message left. [facility] 03-25-2024 Miscellaneous Notes Pt. informed message left. Lab signed. Please make sure pt is fasting. Thank you, Kelsey Mann APRN.TECHNICAL SALES MANAGER Patient calls to request lab orders be placed prior to appointment with PCP on 03/29/2024. Patient was to have completed in February but had to cancel her appointment so didn't get labs completed. Pended previous orders from February for review. Patient requests a call back at [phone] once orders are placed. Danya Jones RN documented in this encounter [facility] 03-25-2024 Telephone encounter Note Lab signed. Please make sure pt is fasting. Thank you, Kelsey Mann APRN.TECHNICAL SALES MANAGER [facility] Work Phone: 03-25-2024 Telephone encounter Note Patient calls to request lab orders be placed prior to appointment with PCP on 03/29/2024. Patient was to have completed in February but had to cancel her appointment so didn't get labs completed. Pended previous orders from February for review. Patient requests a call back at [phone] once orders are placed. Danya Jones RN [facility] 10-27-2023 Telephone encounter Note Pt informed Vandana Valverde MA [facility] 10-27-2023 Miscellaneous Notes Pt informed Vandana Valverde MA Please let Letha know I received her lab results. Her iron and hgb are in a good range, so no concerns there. It does show she has some dehydration-please reinforce that she get a minimum of 60-80oz of water daily. Her vitamin levels all look good. Rick Leong APRN.CNP documented in this encounter [facility] 10-27-2023 Telephone encounter Note Please let Letha know I received her lab results. Her iron and hgb are in a good range, so no concerns there. It does show she has some dehydration-please reinforce that she get a minimum of 60-80oz of water daily. Her vitamin levels all look good. Rick Leong APRN.CNP [facility] 10-26-2023 Instructions Rick Leong APRN.CNP - 10/26/2023 9:44 AM EDT You need to be getting a minimum of 64-80oz of water daily-double what you're currently getting. Be very careful with position changes, give yourself 30-60 seconds before getting up when laying to sitting. For PT, consider Rocky or Josue Have your labs drawn documented in this encounter [facility] 10-26-2023 Note HNO ID: [id number] Author: RICK LEONG APRN.MAYA Service: ? Author [...] not room spinning. Lasts about 1-2 minutes. Xnlae-elgsmf-bqtj gets about 32oz on a daily basis. [...] on 08/16/2026 Colorect (more content not included)... [facility] 10-26-2023 History of Present illness Narrative Chief [...] not room spinning. Lasts about 1-2 minutes. Ptbdb-wiqauv-grlt gets about 32oz on a daily basis. [...] WHEN PFRMD Comment: Colonoscopy 06/24/2021: [facility]IC[facility] 07/17/2014: ESOPHAGOGASTRODUODENOSCOPY TRANSORAL DIAGNOSTIC [...] IRON AND TIBC - FERRITIN Rick Leong APRN.TECHNICAL SALES MANAGER documented in this encounter [facility] 09-28-2023 Telephone encounter Note The patient has [...] Jones RN September 28, 2023 8:40 AM [facility] 09-28-2023 Miscellaneous Notes The patient has been [...] 2023 8:40 AM documented in this encounter [facility] 08-21-2023 History of Present illness Narrative CC: [...] (H) 4.3 - 5.6 % Final Comment: [place] [employer] guidelines indicate that patients with HgbA1c in the range 5.7-6.4% are at increased risk for development of diabetes, and intervention by lifestyle modification may be beneficial. HgbA1c greater or equal to 6.5% is considered diagnostic of diabetes. 07/13/2021 5.5 4.3 - 5.6 % Final Comment: [place] [employer] guidelines indicate that patients with [...] SPEC WHEN PFRMD 07/17/2014 Colonoscopy EGD W/O [facility] SPEC VARICIES INJ 06/24/2021 ESOPHAGOGASTRODUODENOSCOPY TRANSORAL [...] See patient instructions. Jagjit Matias DO [address] [place] [address] documented in this encounter [facility] 08-21-2023 Instructions Jagjit Matias DO - 08/21/2023 10:33 AM EDT Physical therapy Mckenzie Bearden or Rocky Larose Parafin wax dip system Epsom salt soaks documented in this encounter [facility] 08-04-2023 Telephone encounter Note New labs are placed. Thank you, Kelsey Mann APRN.MAYA [facility] Work Phone: 08-04-2023 Miscellaneous Notes New labs are placed. Thank you, Kelsey Mann APRN.TECHNICAL SALES MANAGER Pt calling in as she has an appt with Dr. Matias on 08/21/23. She states she noticed on [employer] that the lab orders that are currently in are going to tomorrow and she is unable to come in. Pt told we can put a new set of orders in for her. Pt will watch her MyChart for the new orders. documented in this encounter [facility] 08-03-2023 Telephone encounter Note Pt calling in [...] watch her MyChart for the new orders. [facility] 07-27-2023 History of Present illness Narrative PATIENT: Letha Castro [id number] 07/21/2022 Clinic note from 07/21/2022 copied and updated. Chief Complaint: Follow up RCC History of Present Illness: Letha Castro is a very pleasant 82 year old female who presents with a history of right renal mass found on US due to right sided abdominal pain. CT Kidney revealed 3.3cm right renal mass s/p partial nephrectomy 07/06/22 and pathology revealed [id number] clear cell renal carcinoma . FINAL DIAGNOSIS [...] renal cell cancer (Z90.5) H/O partial nephrectomy [id number] Histologic subtype clear cell ISUP Grade 2 kidney cancer s/p Robotic Partial nephrectomy on 07/06/2022 Reviewed most recent imaging results without evidence of recurrence or metastatic disease. Discussed NCCN guidelines for surveillance. Plan: -Follow up virtual visit in 1 year with MRI abdomen, CXR, and BMP checked prior to visit Discussed with Dr. Smith. Edith Danielle APRN.TECHNICAL SALES MANAGER documented in this encounter [facility] 07-15-2023 Telephone encounter Note Pt called and is notified of providers results. Pt voices understanding. Lisa Sanchez RN [facility] 07-15-2023 Miscellaneous Notes Pt called and is notified of providers results. Pt voices understanding. Lisa Sanchez RN Please inform patient that her labs are back to normal and her chest xray is normal appearing Jagjit Matias DO documented in this encounter [facility] 07-14-2023 Telephone encounter Note Please inform patient that her labs are back to normal and her chest xray is normal appearing Jagjit Matias DO [facility] 07-12-2023 History of Present illness Narrative Radiology [...] PATIENT PRESENTS WITH AN IMPLANTABLE OR ATTACHED CASHIER RECEPTIONIST: No RADIOLOGY DEPARTMENT: General X-ray: Exam(s) Completed: Chest X-Ray PERIPHERAL IV DATA: Not applicable SIGNED BY: RT Adry(R) July 12, 2023 10:28 AM documented in this encounter [facility] 07-12-2023 Telephone encounter Note Order signed. Thank you, Kelsey Mann APRN.TECHNICAL SALES MANAGER [facility] 07-12-2023 Miscellaneous Notes Order signed. Thank you, Kelsey Mann APRN.TECHNICAL SALES MANAGER Please file Stat order for lab. documented in this encounter [facility] 07-12-2023 Telephone encounter Note Please file Stat order for lab. [facility] 07-12-2023 History of Present illness Narrative Radiology [...] PATIENT PRESENTS WITH AN IMPLANTABLE OR ATTACHED CASHIER RECEPTIONIST: No ALLERGIES: Reviewed and unchanged CONTRAST ALLERGY: [...] TIME: 3:38 PM documented in this encounter [facility] 05-30-2023 Miscellaneous Notes Pt notified. Kylah Rashid MA Ordered Chely Castro PA-C Patient needs lab test ordered to check creatinine before getting kidney MRI on July 11 since the last test falls out of the 60 day mei. documented in this encounter [facility] 05-30-2023 Miscellaneous Notes Patient has been identified [...] advise. Braxton Huerta documented in this encounter [facility] 05-13-2023 History of Present illness Narrative CC: [...] SPEC WHEN PFRMD 07/17/2014 Colonoscopy EGD W/O [facility] SPEC VARICIES INJ 06/24/2021 ESOPHAGOGASTRODUODENOSCOPY TRANSORAL [...] plan. See patient instructions. Jagjit Matias DO [address] [place] [address] documented in this encounter [facility] 04-27-2023 Miscellaneous Notes Pt reports she pulled [...] No Protocols used: Muscle Aches and Body [id number] documented in this encounter [facility] 04-21-2023 Miscellaneous Notes Pt called back and message given. Pt will call back to reschedule. Denise Queen LPN documented in this encounter [facility] 02-14-2023 Miscellaneous Notes February 14, 2023 PID: [id number] Letha Castro [address] [place] [address] Dear Ms. Palm, We are pleased to [...] report will be kept on file at [facility] as part of your permanent medical record and are available for your continuing care. Thank you for allowing us to help in meeting your health care needs. Sincerely, Dr. Nolan Interpreting Radiologist [facility] (Normal over 40) documented in this encounter [facility] 11-05-2022 Miscellaneous Notes Phoned patient and went [...] Jagjit Matias DO documented in this encounter [facility] 11-04-2022 History of Present illness Narrative Radiology [...] TIME: 4:11 PM documented in this encounter [facility] 11-02-2022 Miscellaneous Notes Patient was notified Lynda Díaz Ma I didn't get this rx sent in until tonight since I have been seeing patient. rx sent in, please inform patient Jagjit Matias DO Patient reports she has a CT scheduled for tomorrow at 1 pm on MR. Reports she needs Rx for prednisone and benadryl sent to [facility]. Pended. Reports she is allergic to iodine, and in the past has had to take prednisone 13 hrs prior, 7 hrs prior, 1 hr prior, and benadryl 1 hr prior, to have CT done. documented in this encounter [facility] 11-02-2022 Miscellaneous Notes Patient was notified and [...] Hyacinth Velazquez LPN documented in this encounter [facility] 10-27-2022 Miscellaneous Notes Noted. Thank you for the update. Kelsey Mann APRN.MAYA Pt called back and she went to have a CT done at 1 pm and received a call from Dr. Cleaning, Urology [facility] and he instructed pt that the finding [...] Kidney MD yet? documented in this encounter [facility] 10-21-2022 Instructions Rick Leong APRN.CNP - 10/21/2022 9:55 AM EDT Have your lab work drawn. Schedule your CT scan. Schedule your hida scan. documented in this encounter [facility] 10-21-2022 History of Present illness Narrative Chief [...] SPEC WHEN PFRMD 07/17/2014 [facility] SPE[facility] VARICIES INJ 06/24/2021 ESOPHAGOGASTRODUODENOSCOPY TRANSORAL DIAGNOSTIC [...] - IV CONTRAST (RADIOLOGY PROCEDURE) Rick Leong APRN.TECHNICAL SALES MANAGER documented in this encounter [facility] 10-10-2022 Miscellaneous Notes Patient notified of results and provider's instructions. Patient verbalizes understanding. Zora Call RN Message left for pt to call back. Kylah Rashid Ma [facility] radiologist recommends CT f/u on complex 1.8cm right renal mass, non-urgent. Telephone on 10/10/22 CT KIDNEY WO/W IVCON Phillip Hughes PA-C documented in this encounter [facility] 09-29-2022 Miscellaneous Notes Patient calling needs Creatinine results faxed to [place] at [facility] [phone] for her MRI for Monday. Printed lab result and faxed as requested. documented in this encounter [facility] 09-28-2022 Miscellaneous Notes FYI: Pt called in to check on PA for her MRI. This was authorized and contacted [facility] and they had the authorization and they called pt. Pt is scheduled for this Monday to have testing done. Denise Queen LPN documented in this encounter [facility] 09-28-2022 Miscellaneous Notes Detailed message left on secure VM. Stool negative for blood. Miracle Acuña APRN.CNP documented in this encounter [facility] 09-27-2022 Miscellaneous Notes MRI orders sent to [facility]. Pt aware. Patient aware to contact [facility] to schedule. Rose Araujo RN CT showed the kidney and did not identify any concerning findings. Please fax order to [facility] Miracle Acuña APRN.CNP Contacted patient and patient did not recall that pre-medication prior to MRI was ordered yesterday by Miracle Acuña. Patient states she does want to have MRI completed at [facility] if they are able to get her in soon, however before sending MRI order to [facility], patient asking Miracle Acuña if the MRI [...] patient, please fax pancreas MRI order to [facility]. Thank you. Yes I sent in medication for her to take prior- I though she was told this yesterday. Miracle Acuña APRN.TECHNICAL SALES MANAGER Patient notified of provider's message below. Patient asking to have message sent to MRI ordering provider Miracle Acuña TECHNICAL SALES MANAGER: Pt states she is allergic to iodine [...] she would like MRI order sent to [facility] to have completed there, as noted in other 09/26 encounter note. Thank you. See previous TE from today from Miracle Acuña TECHNICAL SALES MANAGER. I am completely in agreeance with Miracle [...] Jagjit Matias, DO documented in this encounter [facility] 09-26-2022 Miscellaneous Notes Patient called in and stated she would like to schedule MRI CAREN. No appointments available within driving distance in that time window within CC system. She is okay having the MRI at [facility]. I am unable to start the process of getting her paperwork sent to [facility] from home. Patient calling asking to have [...] Miracle Acuña APRN.MAYA documented in this encounter [facility] 09-23-2022 Miscellaneous Notes Patient calls with questions about taking prednisone and benadryl prior to procedure. Questions answered. Zroa Call RN Detailed message left for patient on secure VM to advise of provider's message. CT for today needed cancelled and did so with Lynda at [facility] radiology. She advised patient can call and schedule Monday with her at her direct # [phone]. Advised patient of medications ordered and directions. [...] of waiting on imaging. Phoned Lynda at [facility] radiology and she stated recommended Prednisone [...] should cancel. Call received from Lynda With [facility] Radiology- Advised patient has iodine allergy [...] other new symptoms? documented in this encounter [facility] 09-22-2022 Miscellaneous Notes Reviewed. Patient call in [...] OTHER SYMPTOMS: Emesis x 1 Protocols used: Moejqnco-TVGQC-GP, Weakness (Generalized) and Iuslkkf-KORXA-PP documented in this encounter [facility] 08-11-2022 History of Present illness Narrative Ortho Nurse - Established Patient Intake Room#: 2--Visit today to review Bone scan (left knee) and MRI results left hip.She has no pain . Problems continue with her gait and walking. Date: 08/11/2022 1:11 PM Patient: Letha Castro MR#: [id number] : 1940 Age: 81 y.o. Referring Physician: [...] Levofloxacin Penicillins Rash documented in this encounter [facility] 07-21-2022 History of Present illness Narrative PATIENT: Letha Castro [id number] 07/21/2022 POST OP This clinic note was [...] s/p partial nephrectomy 07/06/22 and pathology revealed [id number] clear cell renal carcinoma . Denies flank [...] Cholelithiasis. Hiatal hernia. Assessment: 1) Kidney Cancer [id number] Histologic subtype clear cell ISUP Grade 2 kidney cancer s/p Robotic Partial nephrectomy on 07/06/2022 Plan: 1.) Follow up in [address] abd, chest xray, CBC, BMP Zora Hernandes APRN.TECHNICAL SALES MANAGER Scribed for Dr. Skylar Smith by edy White scribe on 07/21/2022 I agree with the Chief Complaint, ROS, and Past Histories independently gathered by the clinical sales support coordinator including scribe and or medical student and or STEFANIE and or resident or fellow and the remaining scribed note accurately describes my personal service to the patient. Skylar Smith MD, MS [facility] Pending Sale To [facility] documented in this encounter [facility] 07-14-2022 History of Present illness Narrative CC: [...] SPEC WHEN PFRMD 07/17/2014 Colonoscopy EGD W/O [facility] SPEC VARICIES INJ 06/24/2021 ESOPHAGOGASTRODUODENOSCOPY TRANSORAL [...] See patient instructions. Jagjit Matias DO [address] [place] [address] documented in this encounter [facility] 07-05-2022 Miscellaneous Notes Noted Jagjit Matias DO [...] Jagjit Matias DO documented in this encounter [facility] 06-29-2022 History and physical note HISTORY AND PHYSICAL EXAMINATION SERVICE DATE: 06/29/2022 SERVICE TIME: 2:14 PM PRIMARY CARE PHYSICIAN: Jagjit Matias DO REASON FOR VISIT: Letha Castro is a 81 year old female who is scheduled for ROBOTIC LAPAROSCOPIC NEPHRECTOMY PARTIAL on 07/06/2022 at [facility]. Patient is being seen at the [...] SPEC WHEN PFRMD 07/17/2014 Colonoscopy EGD W/O [facility] SPEC VARICIES INJ 06/24/2021 ESOPHAGOGASTRODUODENOSCOPY TRANSORAL [...] essential tremor No history of TIA's, stroke, MANAGER NICU tumor, impaired sensorium, hemiplegia, paraplegia or quadraplegia. No neurological symptoms or problems. Respiratory: No history of current cough or dyspnea, or pneumonia in the past 6 weeks. No history of respiratory/pulmonary symptoms or problems. Cardiovascular: HLD, MV regurg Negative for Recent AL, Arrhythmia, Chest Pain GI: GERD No history of GI symptoms or problems. No history of esophageal varices, recent ascites, or ETOH greater than 2 drinks per day. : No history of dysuria, frequency or incontinence,, stones or chronic kidney disease SOFTWARE QUALITY MANAGER: Negative for abnormal vaginal bleeding, abnormal vaginal [...] TIME: 2:37 PM documented in this encounter [facility] 06-29-2022 Instructions Lyssa Lundberg APRN.CNP - 06/29/2022 2:08 PM EDT PATIENT PREOPERATIVE INSTRUCTIONS No ref. provider found has scheduled you for your procedure at this surgery center: [facility] [place] [facility] Scheduling Office: [phone] [address] [place] [address]. Please read below carefully for your personalized [...] Procedures: - YOU MUST HAVE A RESPONSIBLE CASE MANAGER TAKE YOU HOME. A DIRECTOR OF GROUP COUNSELING PROGRAM OR CUT ROLL MACHINE OPERATOR CANNOT BE MADE A RESPONSIBLE CASE MANAGER. - We recommend that a responsible person [...] call the Monday before. Your surgeon s multi share program coordinator will tell you what time to call the office. - If you have not reached the departmental multi share program coordinator by 5 P.M., call [phone] after 5 P.M. the day before your surgery. Please be aware that emergency situations arise, which may delay or change your surgical time. If this happens, we will notify you as soon as possible and regret any inconvenience. If you already have an Advance Directive, please fax a copy to [phone] or email to for it to be [...] Lyssa Lundberg APRN.CNP documented in this encounter [facility] 06-29-2022 History of Present illness Narrative [facility] PRE-OP NOTE Letha Castro is a 81 year old female. Pre-op Date: June 29, 2022 Date of Procedure: 07/06/2022 Does the patient have an active COVID-19 test in [facility]? N/A Procedure/Surgery: Robotic Laparoscopic nephrectomy partial [...] Consent not in Epic. Surgeon notified via [employer] message. DOS Orders Placed and Signed: Yes. [...] LABS. VICKIE Kauffman documented in this encounter [facility] 06-21-2022 Miscellaneous Notes Pt. informed. Please inform [...] not sure that would be an option. Lias Sanchez RN Ordered. Please schedule. Thank you, [...] Rick Leong APRN.MAYA documented in this encounter [facility] 06-16-2022 History of Present illness Narrative Radiology [...] 2022 11:38 AM documented in this encounter [facility] 06-13-2022 Miscellaneous Notes Spoke to Mrs. Castro. After discussion, she elected to keep DOS on July 06 as scheduled. All questions answered and patient verbalized understanding. Ana Maria Berg RN, BSN Triage Nurse Department of Urology [facility] documented in this encounter [facility] 06-13-2022 Miscellaneous Notes Opened in error. documented in this encounter [facility] 06-10-2022 History of Present illness Narrative Chief [...] SPEC WHEN PFRMD 07/17/2014 Colonoscopy EGD W/O [facility] SPEC VARICIES INJ 06/24/2021 ESOPHAGOGASTRODUODENOSCOPY TRANSORAL [...] - US FEMALE PELVIS TRANSVAG Rick Leong APRN.TECHNICAL SALES MANAGER documented in this encounter [facility] 06-09-2022 History of Present illness Narrative Ortho Nurse - Established Patient Intake Room#: 3 Left hip pain of 5 at times, trouble walking, her socks twist, has been to a processing mgr and he cant find any problems, DANICA somewhere around 2014, last seen 05-17-18 for same issues, did attempt PT after her last visit Date: 06/09/2022 11:07 AM Patient: Letha Castro MR#: [id number] : 1940 Age: 81 y.o. Referring Physician: [...] her socks twist, has been to a processing mgr and he cant find any problems, DANICA somewhere around 2014, last seen 05-17-18 for same issues, did attempt PT after her last visit Date: 06/09/2022 11:07 AM Patient: Letha Castro MR#: [id number] : 1940 Age: 81 y.o. Referring Physician: [...] levofloxacin, and penicillins. documented in this encounter [facility] 06-08-2022 Miscellaneous Notes Noted, thank you. Rick Leong APRN.TECHNICAL SALES MANAGER Patient calling to request to make appt. [...] Rose Araujo RN documented in this encounter [facility] 06-02-2022 History of Present illness Narrative PATIENT: Letha Castro [id number] REFERRING MD: Jagjit Matias 06/02/2022 NEW TO [...] SPEC WHEN PFRMD 07/17/2014 Colonoscopy EGD W/O [facility] SPEC VARICIES INJ 06/24/2021 ESOPHAGOGASTRODUODENOSCOPY TRANSORAL [...] that approximately 80% of enhancing renal masses turner and former automatic to be kidney cancer upon removal, while [...] There is some data suggesting there are fpc survival advantages and equivalent cancer control with nephron sparing surgery. We also discussed the advantages and disadvantages and roles of open surgery vs. laparoscopic (and Da Christen assisted) surgery. Patient has decided she would like to proceed with active surveillance Zora Hernandes APRN.TECHNICAL SALES MANAGER Scribed for Dr. Skylar Smith by edy White scribe on 06/02/2022 I agree with the Chief Complaint, ROS, and Past Histories independently gathered by the clinical sales support coordinator including scribe and or medical student and or STEFANIE and or resident or fellow and the remaining scribed note accurately describes my personal service to the patient. Skylar Smith MD, MS [facility] Pending Sale To [facility] documented in this encounter [facility] 05-25-2022 Miscellaneous Notes Detailed VM left on [...] Denise Queen LPN documented in this encounter [facility] 05-19-2022 Miscellaneous Notes After passing this by Dr. Matias she asked this nurse call [facility] to see if there may be an opening for her to be seen sooner. Called [facility] they stated Dr. Skylar Smith handles this kind of surgery . He could see her on June 02 at 2:30pm. He is located at the [facility] .They are to use elevater Q take it to the 7th floor and check in there. Their phone number for any questions is [phone]. Called pt and is agreeable all information given. Called [facility] urology dept . They explained its a Dr. William Pendleton that does this type of surgery . His first available opening is June 13 at 11am in his [place] office. She can be seen after that 1st appt in [place]. This was just his earliest appt. Called pt left detailed message of this on her voicemail and our number to call back with any questions. Called patient and personally discussed her CT kidney results. She has concerns for right renal mass, RCC? She is aware of need to see urologist [facility] for biopsy and likely resection. She is [...] Denise Queen LPN documented in this encounter [facility] 05-16-2022 Miscellaneous Notes Pt. informed. Elizabeth Watts [...] Please place orders. documented in this encounter [facility] 05-14-2022 Miscellaneous Notes Patient has been scheduled [...] Jagjit Matias DO documented in this encounter [facility] 05-06-2022 Miscellaneous Notes Patient updated of provider's [...] in urination habits? documented in this encounter [facility] 05-05-2022 Miscellaneous Notes Patient notified and verbalized understanding Nikky Ogden Cma Please let patient know that overall her labs are within normal limits for her. documented in this encounter [facility] 05-03-2022 Instructions Ria Gunter APRN.CNP - 05/03/2022 11:19 AM EST Complete lab work Complete xray Schedule ultrasound Follow up as directed upon results of lab and imaging documented in this encounter [facility] 05-03-2022 History of Present illness Narrative Chief [...] Ria Gunter APRN.CNP documented in this encounter [facility] 02-23-2022 Miscellaneous Notes Patient's notified of results and provider recommendations Voices understanding. Zora Call RN Please call patient and let her know that lab work results look good! No acute concerns. Alkaline phosphatase (a liver enzyme) is slightly elevated as prior. We will continue to monitor this value routinely. Thank you, Kelsey Quispe APRN.CNP documented in this encounter [facility] 02-17-2022 Miscellaneous Notes Pt notified of such. Lab orders are placed. Please let her know. Thank you, Kelsey Quispe APRN.TECHNICAL SALES MANAGER Pt calling in stating at her last [...] done. Thank you! documented in this encounter [facility] 01-06-2022 Miscellaneous Notes Patient returned call and [...] verbalized understanding. Pt asking for echo results. aVndana Reynolds Ma Please let patient know that her mammogram shows no concern for malignancy/cancer. Recommend continuing to follow up yearly with screening mammogram. Rick Leong APRN.CNP documented in this encounter [facility] 01-05-2022 Miscellaneous Notes January 05, 2022 PID: [id number] Letha Castro [address] [place] [address] Dear Ms. Castro, We are pleased to [...] report will be kept on file at [facility] as part of your permanent medical record and are available for your continuing care. Thank you for allowing us to help in meeting your health care needs. Sincerely, Dr. Partida Interpreting Radiologist [facility] (Normal over 40) documented in this encounter [facility] 01-05-2022 History of Present illness Narrative Radiology [...] 2022 10:42 AM documented in this encounter [facility] 12-15-2021 History of Present illness Narrative CC: [...] SPEC WHEN PFRMD 07/17/2014 Colonoscopy EGD W/O [facility] SPEC VARICIES INJ 06/24/2021 ESOPHAGOGASTRODUODENOSCOPY TRANSORAL [...] with the plan. Jagjit Matias DO [address] [place] [address] documented in this encounter [facility] 07-14-2021 History of Present illness Narrative CC: Letha Castro is a 80 year old female who presents to the office for follow up HPI: Seen last in office on 05/11/[address] [facility] this past few days due to feeling [...] a bowel movement since d/c home from [facility]. Denies any obvious bleeding per rectum at [...] SPEC WHEN PFRMD 07/17/2014 [facility] SPE[facility] VARICIES INJ 06/24/2021 ESOPHAGOGASTRODUODENOSCOPY TRANSORAL DIAGNOSTIC [...] 729.5, ICD10: M79.671, M79.672 - referral to processing mgr for opinion, may benefit from orthodics or [...] plan. See patient instructions. Jagjit Matias DO [address] [place] [address] documented in this encounter [facility] 07-13-2021 Instructions Jagjit Matias DO - 07/13/2021 10:[address] Lewis or Dr. Adkins Food Tray Assembler documented in this encounter [facility] 07-06-2021 History of Present illness Narrative Subjective: Patient is status post an upper and lower endoscopy completed at [facility]. Biopsy of her stomach did not show [...] GI bleeds hopefully. documented in this encounter [facility] 06-15-2021 Miscellaneous Notes 06-24-2021 COLON ASC documented in this encounter [facility] 06-15-2021 History of Present illness Narrative Images from the original note were not included. HISTORY AND PHYSICAL Letha Castro 1940 REFERRING PHYSICIAN: Jagjit Matias DO CHIEF COMPLAINT: Consult (colonoscopy, bloody stool) HPI: The patient is a 80 year old female referred for endoscopy. Patient was recently admitted [facility] with a GI bleed. She received [...] entered by the nurse and reviewed by co Nursing Notes: Amelie Ovalle LPN 05/18/2021 9:12 [...] López III, MD documented in this encounter [facility] 06-04-2021 Miscellaneous Notes The following approved medication [...] Jagjit Matias DO documented in this encounter [facility] 05-10-2021 Miscellaneous Notes Noted Jagjit L Matias, DO Phone call placed spoke to patient, reported currently in [facility] dx anemia, update labs drawn with [...] diagnosis. 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 Backache, unspecified 11/12/2013 04/28/2016 Sciatica 11/12/2013 04/28/2016 documented as of this encounter (statuses as of 06/08/2021) [facility] History of Past illness Narrative* Problem Noted Date Resolved Date 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 Backache, unspecified 11/12/2013 04/28/2016 Sciatica 11/12/2013 04/28/2016 documented as of this encounter (statuses as of 06/15/2021) [facility] History of Past illness Narrative* Problem Noted Date Resolved Date 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 Backache, unspecified 11/12/2013 04/28/2016 Sciatica 11/12/2013 04/28/2016 documented as of this encounter (statuses as of 06/16/2021) [address]24-2015 History of Past illness Narrative* Problem Noted Date Resolved Date 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 Backache, unspecified 11/12/2013 04/28/2016 Sciatica 11/12/2013 04/28/2016 documented as of this encounter (statuses as of 06/17/2021) [facility] History of Past illness Narrative* Problem Noted Date Resolved Date 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 Backache, unspecified 11/12/2013 04/28/2016 Sciatica 11/12/2013 04/28/2016 documented as of this encounter (statuses as of 07/06/2021) [address]24-2015 History of Past illness Narrative* Problem Noted Date Resolved Date 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 Backache, unspecified 11/12/2013 04/28/2016 Sciatica 11/12/2013 04/28/2016 documented as of this encounter (statuses as of 07/14/2021) [address]24-2015 History of Past illness Narrative* Problem Noted Date Resolved Date 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 Backache, unspecified 11/12/2013 04/28/2016 Sciatica 11/12/2013 04/28/2016 documented as of this encounter (statuses as of 12/13/2021) [address] History of Past illness Narrative* Problem Noted Date Resolved Date 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 Backache, unspecified 11/12/2013 04/28/2016 Sciatica 11/12/2013 04/28/2016 documented as of this encounter (statuses as of 12/16/2021) [address] History of Past illness Narrative* Problem Noted Date Resolved Date 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 Backache, unspecified 11/12/2013 04/28/2016 Sciatica 11/12/2013 04/28/2016 documented as of this encounter (statuses as of 01/06/2022) [address] History of Past illness Narrative* Problem Noted Date Resolved Date 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 Backache, unspecified 11/12/2013 04/28/2016 Sciatica 11/12/2013 04/28/2016 documented as of this encounter (statuses as of 01/07/2022) [address] History of Past illness Narrative* Problem Noted Date Resolved Date 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 Backache, unspecified 11/12/2013 04/28/2016 Sciatica 11/12/2013 04/28/2016 documented as of this encounter (statuses as of 02/17/2022) [address] History of Past illness Narrative* Problem Noted Date Resolved Date 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 Backache, unspecified 11/12/2013 04/28/2016 Sciatica 11/12/2013 04/28/2016 documented as of this encounter (statuses as of 02/23/2022) [address] History of Past illness Narrative* Problem Noted Date Resolved Date 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 Backache, unspecified 11/12/2013 04/28/2016 Sciatica 11/12/2013 04/28/2016 documented as of this encounter (statuses as of 05/03/2022) [address] History of Past illness Narrative* Problem Noted Date Resolved Date 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 Backache, unspecified 11/12/2013 04/28/2016 Sciatica 11/12/2013 04/28/2016 documented as of this encounter (statuses as of 05/05/2022) [address] History of Past illness Narrative* Problem Noted Date Resolved Date 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 Backache, unspecified 11/12/2013 04/28/2016 Sciatica 11/12/2013 04/28/2016 documented as of this encounter (statuses as of 05/06/2022) [address] History of Past illness Narrative* Problem Noted Date Resolved Date 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 Backache, unspecified 11/12/2013 04/28/2016 Sciatica 11/12/2013 04/28/2016 documented as of this encounter (statuses as of 05/14/2022) [address] History of Past illness Narrative* Problem Noted Date Resolved Date 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 Backache, unspecified 11/12/2013 04/28/2016 Sciatica 11/12/2013 04/28/2016 documented as of this encounter (statuses as of 05/16/2022) [address] History of Past illness Narrative* Problem Noted Date Resolved Date 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 Backache, unspecified 11/12/2013 04/28/2016 Sciatica 11/12/2013 04/28/2016 documented as of this encounter (statuses as of 05/23/2022) [address] History of Past illness Narrative* Problem Noted Date Resolved Date 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 Backache, unspecified 11/12/2013 04/28/2016 Sciatica 11/12/2013 04/28/2016 documented as of this encounter (statuses as of 05/25/2022) [address] History of Past illness Narrative* Problem Noted Date Resolved Date 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 Backache, unspecified 11/12/2013 04/28/2016 Sciatica 11/12/2013 04/28/2016 documented as of this encounter (statuses as of 06/06/2022) [address] History of Past illness Narrative* Problem Noted Date Resolved Date 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 Backache, unspecified 11/12/2013 04/28/2016 Sciatica 11/12/2013 04/28/2016 documented as of this encounter (statuses as of 06/08/2022) [address] History of Past illness Narrative* Problem Noted Date Resolved Date 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 Backache, unspecified 11/12/2013 04/28/2016 Sciatica 11/12/2013 04/28/2016 documented as of this encounter (statuses as of 06/09/2022) [address] History of Past illness Narrative* Problem Noted Date Resolved Date 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 Backache, unspecified 11/12/2013 04/28/2016 Sciatica 11/12/2013 04/28/2016 documented as of this encounter (statuses as of 06/10/2022) [address]24-2015 History of Past illness Narrative* Problem Noted Date Resolved Date 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 Backache, unspecified 11/12/2013 04/28/2016 Sciatica 11/12/2013 04/28/2016 documented as of this encounter (statuses as of 06/13/2022) [address] History of Past illness Narrative* Problem Noted Date Resolved Date 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 Backache, unspecified 11/12/2013 04/28/2016 Sciatica 11/12/2013 04/28/2016 documented as of this encounter (statuses as of 06/17/2022) [address] History of Past illness Narrative* Problem Noted Date Resolved Date 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 Backache, unspecified 11/12/2013 04/28/2016 Sciatica 11/12/2013 04/28/2016 documented as of this encounter (statuses as of 06/22/2022) [address] History of Past illness Narrative* Problem Noted Date Resolved Date 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 Backache, unspecified 11/12/2013 04/28/2016 Sciatica 11/12/2013 04/28/2016 documented as of this encounter (statuses as of 06/30/2022) [address] History of Past illness Narrative* Problem Noted Date Resolved Date 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 Backache, unspecified 11/12/2013 04/28/2016 Sciatica 11/12/2013 04/28/2016 documented as of this encounter (statuses as of 06/30/2022) [address] History of Past illness Narrative* Problem Noted Date Resolved Date 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 Backache, unspecified 11/12/2013 04/28/2016 Sciatica 11/12/2013 04/28/2016 documented as of this encounter (statuses as of 07/04/2022) [address] History of Past illness Narrative* Problem Noted Date Resolved Date 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 Backache, unspecified 11/12/2013 04/28/2016 Sciatica 11/12/2013 04/28/2016 documented as of this encounter (statuses as of 07/14/2022) [address] History of Past illness Narrative* Problem Noted Date Resolved Date 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 Backache, unspecified 11/12/2013 04/28/2016 Sciatica 11/12/2013 04/28/2016 documented as of this encounter (statuses as of 08/06/2022) [address] History of Past illness Narrative* Problem Noted Date Resolved Date 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 Backache, unspecified 11/12/2013 04/28/2016 Sciatica 11/12/2013 04/28/2016 documented as of this encounter (statuses as of 09/13/2022) [address] History of Past illness Narrative* Problem Noted Date Diagnosed Date Resolved Date 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 12/09/2014 Backache, unspecified 11/12/20132016 Sciatica 11/12/2013 04/28/2016 documented as of this encounter (statuses as of 09/23/2022) [address] History of Past illness Narrative* Problem Noted Date Diagnosed Date Resolved Date 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 12/09/2014 Backache, unspecified 11/12/20132016 Sciatica 11/12/2013 04/28/2016 documented as of this encounter (statuses as of 09/23/2022) [address] History of Past illness Narrative* Problem Noted Date Diagnosed Date Resolved Date 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 12/09/2014 Backache, unspecified 11/12/20132016 Sciatica 11/12/2013 04/28/2016 documented as of this encounter (statuses as of 09/27/2022) [place] [address] History of Past illness Narrative* Problem Noted Date Diagnosed Date Resolved Date 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 12/09/2014 Backache, unspecified 11/12/20132016 Sciatica 11/12/2013 04/28/2016 documented as of this encounter (statuses as of 09/27/2022) [address]24-2015 History of Past illness Narrative* Problem Noted Date Diagnosed Date Resolved Date 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 12/09/2014 Backache, unspecified 11/12/20132016 Sciatica 11/12/2013 04/28/2016 documented as of this encounter (statuses as of 09/27/2022) [address] History of Past illness Narrative* Problem Noted Date Diagnosed Date Resolved Date 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 12/09/2014 Backache, unspecified 11/12/20132016 Sciatica 11/12/2013 04/28/2016 documented as of this encounter (statuses as of 09/27/2022) [place] [address] History of Past illness Narrative* Problem Noted Date Diagnosed Date Resolved Date 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 12/09/2014 Backache, unspecified 11/12/20132016 Sciatica 11/12/2013 04/28/2016 documented as of this encounter (statuses as of 09/28/2022) [address]24-2015 History of Past illness Narrative* Problem Noted Date Diagnosed Date Resolved Date 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 12/09/2014 Backache, unspecified 11/12/20132016 Sciatica 11/12/2013 04/28/2016 documented as of this encounter (statuses as of 09/28/2022) [address]24-2015 History of Past illness Narrative* Problem Noted Date Diagnosed Date Resolved Date 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 12/09/2014 Backache, unspecified 11/12/20132016 Sciatica 11/12/2013 04/28/2016 documented as of this encounter (statuses as of 09/29/2022) [address]24-2015 History of Past illness Narrative* Problem Noted Date Diagnosed Date Resolved Date 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 12/09/2014 Backache, unspecified 11/12/20132016 Sciatica 11/12/2013 04/28/2016 documented as of this encounter (statuses as of 10/10/2022) [address]24-2015 History of Past illness Narrative* Problem Noted Date Diagnosed Date Resolved Date 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 12/09/2014 Backache, unspecified 11/12/20132016 Sciatica 11/12/2013 04/28/2016 documented as of this encounter (statuses as of 10/24/2022) [address]24-2015 History of Past illness Narrative* Problem Noted Date Diagnosed Date Resolved Date 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 12/09/2014 Backache, unspecified 11/12/20132016 Sciatica 11/12/2013 04/28/2016 documented as of this encounter (statuses as of 10/27/2022) [address]24-2015 History of Past illness Narrative* Problem Noted Date Diagnosed Date Resolved Date 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 12/09/2014 Backache, unspecified 11/12/20132016 Sciatica 11/12/2013 04/28/2016 documented as of this encounter (statuses as of 11/02/2022) [address] History of Past illness Narrative* Problem Noted Date Diagnosed Date Resolved Date 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 12/09/2014 Backache, unspecified 11/12/20132016 Sciatica 11/12/2013 04/28/2016 documented as of this encounter (statuses as of 11/03/2022) [address]24-2015 History of Past illness Narrative* Problem Noted Date Diagnosed Date Resolved Date 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 12/09/2014 Backache, unspecified 11/12/20132016 Sciatica 11/12/2013 04/28/2016 documented as of this encounter (statuses as of 11/05/2022) [address] History of Past illness Narrative* Problem Noted Date Diagnosed Date Resolved Date 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 12/09/2014 Backache, unspecified 11/12/20132016 Sciatica 11/12/2013 04/28/2016 documented as of this encounter (statuses as of 01/15/2023) [address]24-2015 History of Past illness Narrative* Problem Noted Date Diagnosed Date Resolved Date 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 12/09/2014 Backache, unspecified 11/12/20132016 Sciatica 11/12/2013 04/28/2016 documented as of this encounter (statuses as of 01/15/2023) [address] History of Past illness Narrative* Problem Noted Date Diagnosed Date Resolved Date 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 12/09/2014 Backache, unspecified 11/12/20132016 Sciatica 11/12/2013 04/28/2016 documented as of this encounter (statuses as of 01/15/2023) [address]24-2015 History of Past illness Narrative* Problem Noted Date Diagnosed Date Resolved Date 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 12/09/2014 Backache, unspecified 11/12/20132016 Sciatica 11/12/2013 04/28/2016 documented as of this encounter (statuses as of 02/14/2023) [address] History of Past illness Narrative* Problem Noted Date Diagnosed Date Resolved Date 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 12/09/2014 Backache, unspecified 11/12/20132016 Sciatica 11/12/2013 04/28/2016 documented as of this encounter (statuses as of 02/16/2023) [address] History of Past illness Narrative* Problem Noted Date Diagnosed Date Resolved Date 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 12/09/2014 Backache, unspecified 11/12/20132016 Sciatica 11/12/2013 04/28/2016 documented as of this encounter (statuses as of 04/21/2023) [address] History of Past illness Narrative* Problem Noted Date Diagnosed Date Resolved Date 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 12/09/2014 Backache, unspecified 11/12/20132016 Sciatica 11/12/2013 04/28/2016 documented as of this encounter (statuses as of 04/27/2023) [address] History of Past illness Narrative* Problem Noted Date Diagnosed Date Resolved Date 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 12/09/2014 Backache, unspecified 11/12/20132016 Sciatica 11/12/2013 04/28/2016 documented as of this encounter (statuses as of 05/18/2023) [address] History of Past illness Narrative* Problem Noted Date Diagnosed Date Resolved Date 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 12/09/2014 Backache, unspecified 11/12/20132016 Sciatica 11/12/2013 04/28/2016 documented as of this encounter (statuses as of 05/30/2023) [address] History of Past illness Narrative* Problem Noted Date Diagnosed Date Resolved Date 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 12/09/2014 Backache, unspecified 11/12/20132016 Sciatica 11/12/2013 04/28/2016 documented as of this encounter (statuses as of 05/30/2023) [facility] Diagnosis Other iron deficiency anemia- Primary [facility] Diagnosis Gastrointestinal hemorrhage with melena- Primary [facility] Diagnosis Blood in stool- Primary [facility] Diagnosis Blood in stool- Primary Gastrointestinal hemorrhage with melena [facility] Diagnosis Other iron deficiency anemia- Primary Vitamin B12 deficiency Other B-complex deficiencies VANDA (acute kidney injury) (HCC) Acute kidney failure, unspecified Hyperglycemia Other abnormal glucose Foot pain, bilateral Pain in limb Left hip pain Pain in joint, pelvic region and thigh History of hip replacement, total, left [facility] Diagnosis Visit for screening mammogram- Primary Other screening mammogram [facility] Diagnosis Vitamin B12 deficiency- Primary Other [...] forms of tremor documented [facility] Diagnosis Other iron deficiency anemia- Primary Vitamin B12 deficiency Other B-complex deficiencies Vitamin D deficiency Unspecified vitamin D deficiency Hyperglycemia Other abnormal glucose [facility] Diagnosis Right sided abdominal pain- Primary Abdominal pain, unspecified site [facility] Diagnosis Other specified disorders of kidney and ureter- Primary Renal mass Unspecified disorder of kidney and ureter Right sided abdominal pain Abdominal pain, unspecified site [facility] Diagnosis Renal mass, right- Primary Unspecified disorder of kidney and ureter [facility] Diagnosis Screening for genitourinary condition Screening for other and unspecified genitourinary condition documented [facility] Diagnosis Renal mass- Primary Unspecified disorder of kidney and ureter Renal mass Unspecified disorder of kidney and ureter [facility] Diagnosis Pain in prosthetic joint, sequela- Primary Left hip pain Pain in joint, pelvic region and thigh [facility] Diagnosis Generalized abdominal pain- Primary Abdominal pain, generalized Calculus of gallbladder without cholecystitis without obstruction Calculus of gallbladder without mention of cholecystitis or obstruction Nausea Nausea alone Renal mass, right Unspecified disorder of kidney and ureter Renal mass Unspecified disorder of kidney and ureter [facility] Diagnosis Renal mass- Primary Unspecified disorder of kidney and ureter Other specified disorders of kidney and ureter Renal mass Unspecified disorder of kidney and ureter [facility] Diagnosis Calculus of gallbladder without cholecystitis without obstruction- Primary Calculus of gallbladder without mention of cholecystitis or obstruction Generalized abdominal pain Abdominal pain, generalized Renal mass Unspecified disorder of kidney and ureter documented in this encounter [facility] note* Diagnosis Left hip pain Pain in joint, pelvic region and thigh Pain in prosthetic joint, sequela documented in this encounter [facility] note* Diagnosis Left hip pain Pain in joint, pelvic region and thigh Pain in prosthetic joint, sequela documented in this encounter [facility] note* Diagnosis Renal mass- Primary Unspecified disorder of kidney and ureter Pre-op testing Preoperative examination, unspecified Renal mass Unspecified disorder of kidney and ureter [facility] Diagnosis Pre-op evaluation- Primary Preoperative examination, unspecified Essential tremor Essential and other specified forms of tremor Nonrheumatic mitral valve regurgitation Gastroesophageal reflux disease without esophagitis Esophageal reflux Renal mass Unspecified disorder of kidney and ureter [facility]* Diagnosis Screening for genitourinary condition Screening for other and unspecified genitourinary condition Renal mass Unspecified disorder of kidney and ureter [facility] Diagnosis Dermatitis contact- Primary Renal mass, right Unspecified disorder of kidney and ureter Generalized abdominal pain Abdominal pain, generalized Vitamin B12 deficiency Other B-complex deficiencies Other iron deficiency anemia Vitamin D deficiency Unspecified vitamin D deficiency Hyperglycemia Other abnormal glucose Dyslipidemia Other and unspecified hyperlipidemia [facility]* Diagnosis Renal cell carcinoma, unspecified laterality (HCC)- Primary [facility]* Diagnosis Bilateral hip pain- Primary Pain in joint, pelvic region and thigh documented in this encounter [facility] note* Diagnosis Leukocytosis, unspecified type- Primary Allergic reaction to dye, sequela Contrast media allergy Allergy to radiographic dye [facility]* Diagnosis Pancreatic lesion- Primary Unspecified disease of pancreas Contrast media allergy Allergy to radiographic dye documented in this encounter [facility] note* Diagnosis Leukocytosis, unspecified type documented in this encounter [facility] note* Diagnosis Leukocytosis, unspecified type- Primary documented in this encounter [facility] note* Diagnosis Other specified disorders of kidney and ureter- Primary documented in this encounter [facility] note* Diagnosis Renal mass, right- Primary Unspecified disorder of kidney and ureter Acquired cyst of kidney Other specified disorders of kidney and ureter Calculus of gallbladder without cholecystitis without obstruction Calculus of gallbladder without mention of cholecystitis or obstruction Leukocytosis, unspecified type Renal cell carcinoma, unspecified laterality (HCC) documented in this encounter [facility] note* Diagnosis Contrast media allergy Allergy to radiographic dye Pancreatic lesion Unspecified disease of pancreas documented in this encounter [facility] note* Diagnosis Leukocytosis, unspecified type Acquired cyst of kidney Other specified disorders of kidney and ureter Renal mass, right Unspecified disorder of kidney and ureter documented in this encounter [facility] note* Diagnosis Renal mass, right Unspecified disorder of kidney and ureter Generalized abdominal pain Abdominal pain, generalized Calculus of gallbladder without cholecystitis without obstruction Calculus of gallbladder without mention of cholecystitis or obstruction Nausea Nausea alone documented in this encounter [facility] note* Diagnosis Encounter for screening mammogram for malignant neoplasm of breast Other screening mammogram documented in this encounter [facility] note* Diagnosis Hyperglycemia- Primary Other abnormal glucose Dyslipidemia Other and unspecified hyperlipidemia Vitamin D deficiency Unspecified vitamin D deficiency Fatigue, unspecified type Iron deficiency anemia, unspecified iron deficiency anemia type Renal mass, right Unspecified disorder of kidney and ureter Tremors of nervous system Abnormal involuntary movements 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) documented in this encounter [facility] note* Diagnosis Renal mass, right- Primary Unspecified disorder of kidney and ureter [facility]* Diagnosis Contrast media allergy Allergy to radiographic dye Pancreatic lesion Unspecified disease of pancreas documented in this encounter [facility] note* Diagnosis Contrast media allergy- Primary Allergy to radiographic dye Pancreatic lesion Unspecified disease of pancreas Renal mass, right Unspecified disorder of kidney and ureter [facility] Diagnosis Renal mass, right Unspecified disorder of kidney and ureter 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) documented [facility] Diagnosis Renal mass, right Unspecified disorder of kidney and ureter 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) [facility] Diagnosis Encounter for follow-up surveillance of kidney cancer- Primary Unspecified follow-up examination History of renal cell cancer H/O partial nephrectomy Personal history of surgery to other organs [facility] Diagnosis Screening for genitourinary condition Screening for other and unspecified genitourinary condition documented [facility] this [facility] Diagnosis Fatigue, unspecified type- Primary Vitamin D deficiency Unspecified vitamin D deficiency Dyslipidemia Other and unspecified hyperlipidemia Hyperglycemia Other abnormal glucose [facility] Diagnosis Orthostatic dizziness- Primary Dehydration [facility] this [facility] Diagnosis Preop examination- Primary Preoperative examination, unspecified Glenohumeral arthritis, left Essential tremor Essential and other specified forms of tremor Other hyperlipidemia Right sided abdominal pain Abdominal pain, unspecified site Pre-op evaluation- Primary Preoperative examination, unspecified Essential tremor Essential and other specified forms of tremor Nonrheumatic mitral valve regurgitation Gastroesophageal reflux disease without esophagitis Esophageal reflux [facility] Diagnosis Preop examination- Primary Preoperative examination, [...] esophagitis Esophageal reflux [facility] Diagnosis Tear of gluteus medius tendon, unspecified laterality, subsequent encounter- Primary Gait disorder Abnormality of gait Fatigue, unspecified type Vitamin D deficiency Unspecified vitamin D deficiency Dyslipidemia Other and unspecified hyperlipidemia 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) Other iron deficiency anemia Vitamin B12 deficiency Other B-complex deficiencies IFG (impaired fasting glucose) Impaired fasting glucose [facility] Diagnosis Preop examination- Primary Preoperative examination, [...] Impaired fasting glucose [facility]* Diagnosis Preop examination- Primary Preoperative examination, [...] forms of tremor documented [facility] Diagnosis Preop examination- Primary Preoperative examination, [...] Other screening mammogram documented [facility] this [facility]* Diagnosis Preop examination- Primary Preoperative examination, [...] laterality, subsequent encounter [facility]* Diagnosis Preop examination- Primary Preoperative examination, unspecified Glenohumeral arthritis, left Essential tremor Essential and other specified forms of tremor Other hyperlipidemia Pre-op evaluation- Primary Preoperative examination, unspecified Essential tremor Essential and other specified forms of tremor Nonrheumatic mitral valve regurgitation Gastroesophageal reflux disease without esophagitis Esophageal reflux Abnormality of gait- Primary Sprain, gluteus medius, unspecified laterality, subsequent encounter documented [facility]* Diagnosis Preop examination- Primary Preoperative examination, unspecified Glenohumeral arthritis, left Essential tremor Essential and other specified forms of tremor Other hyperlipidemia Pre-op evaluation- Primary Preoperative examination, unspecified Essential tremor Essential and other specified forms of tremor Nonrheumatic mitral valve regurgitation Gastroesophageal reflux disease without esophagitis Esophageal reflux Abnormality of gait- Primary Sprain, gluteus medius, unspecified laterality, subsequent encounter documented [facility] this [facility]* Diagnosis Preop examination- Primary Preoperative examination, unspecified Glenohumeral arthritis, left Essential tremor Essential and other specified forms of tremor Other hyperlipidemia Pre-op evaluation- Primary Preoperative examination, unspecified Essential tremor Essential and other specified forms of tremor Nonrheumatic mitral valve regurgitation Gastroesophageal reflux disease without esophagitis Esophageal reflux Abnormality of gait- Primary Sprain, gluteus medius, unspecified laterality, subsequent encounter documented [facility] this [facility]* Diagnosis Preop examination- Primary Preoperative examination, unspecified Glenohumeral arthritis, left Essential tremor Essential and other specified forms of tremor Other hyperlipidemia Pre-op evaluation- Primary Preoperative examination, unspecified Essential tremor Essential and other specified forms of tremor Nonrheumatic mitral valve regurgitation Gastroesophageal reflux disease without esophagitis Esophageal reflux Abnormality of gait- Primary Sprain, gluteus medius, unspecified laterality, subsequent encounter documented in this encounter [facility] note* Diagnosis Preop examination- Primary Preoperative examination, unspecified Glenohumeral arthritis, left Essential tremor Essential and other specified forms of tremor Other hyperlipidemia Pre-op evaluation- Primary Preoperative examination, unspecified Essential tremor Essential and other specified forms of tremor Nonrheumatic mitral valve regurgitation Gastroesophageal reflux disease without esophagitis Esophageal reflux History of renal cell cancer documented in this encounter [facility] note* Diagnosis Preop examination- Primary Preoperative examination, unspecified Glenohumeral arthritis, left Essential tremor Essential and other specified forms of tremor Other hyperlipidemia Pre-op evaluation- Primary Preoperative examination, unspecified Essential tremor Essential and other specified forms of tremor Nonrheumatic mitral valve regurgitation Gastroesophageal reflux disease without esophagitis Esophageal reflux History of renal cell cancer [facility] Diagnosis Preop examination- Primary Preoperative examination, [...] Other B-complex deficiencies [facility] Diagnosis Preop examination- Primary Preoperative examination, [...] right kidney (HCC) documented in this encounter [facility] for referral (narrative)* Outpatient Procedure (Routine) - Authorized Specialty Diagnoses / Procedures Referred By Gabino walker Referred To Contact [facility]ANC[facility] Diagnoses Blood in stool Procedures COLONOSCOPY DIAGNOSTIC COLONOSCOPY FLX DX W/COLLJ SPEC WHEN PFRMD Justen López MD [address] [place] [address] [facility] [address] [address] Referral ID Status Reason Start Date Expiration Date Visits Requested Visits Authorized [id number] Authorized Auto-Generat ed Referral 06/16/2021 06/15/2022 1 1 * Outpatient Procedure (Routine) - Authorized Specialty Diagnoses / Procedures Referred By Gabino walker Referred To Contact DIGESTIVE DISEASE JONANCY Diagnoses Blood in stool Procedures EGD DIAGNOSTIC ESOPHAGOGASTRODUODENOSC OPY TRANSORAL DIAGNOSTIC Justen López MD [address] [place] [address] [facility] [address] [address] Referral ID Status Reason Start Date Expiration Date Visits Requested Visits Authorized [id number] Authorized Auto-Generat ed Referral 06/16/2021 06/15/2022 1 1 [facility] for referral (narrative)* Diagnostic Procedure Only (Routine) - Pending Review Specialty Diagnoses / Procedures Referred By Contac t Referred To Contact [facility] Diagnoses Visit for screening mammogram Procedures MATT SCREENING SCREENING MAMMOGRAPHY BI 2-VIEW BREAST INC CAD Jagjit Matias DO [address] [id number] [facility] [address] [place] [address] Referral ID Status Reason Start Date Expiration Date Visits Requested Visits Authorized [id number] Pending Review Auto-Generat ed Referral 12/13/2021 01/12/2023 1 1 [facility] for referral (narrative)* Diagnostic Procedure Only (Routine) - Authorized Specialty Diagnoses / Procedures Referred By Contac t Referred To Contact [facility] IM[facility] Diagnoses Right sided abdominal pain Procedures US ABD RT UPPER QUADRANT US ABDOMINAL REAL TIME W/IMAGE LIMITED Ria Gunter APRN.CNP [address] [id number] [facility] Referral ID Status Reason Start Date Expiration Date Visits Requested Visits Authorized [id number] Authorized Auto-Generat ed Referral 05/03/2022 06/02/2023 1 1 * Diagnostic Procedure Only (Routine) - Closed Specialty Diagnoses / Procedures Referred By Contac t Referred To Contact XR IMAGING Diagnoses Generalized abdominal pain Right sided abdominal pain Procedures XR ABDOMEN 1V SUPINE RADIOLOGIC EXAM ABDOMEN 1 VIEW Ria Gunter APRN.CNP [address] [place] [address] [facility] Referral ID Status Reason Start Date Expiration Date V isits Requested Visits Authorized [id number] Closed Auto-Generate d Referral 05/03/2022 06/02/2023 1 1 [facility] for referral (narrative)* Diagnostic Procedure Only (Urgent) - Authorized Specialty Diagnoses / Procedures Referred By Contac t Referred To Contact [facility] Diagnoses Renal mass, right Generalized abdominal pain Calculus of gallbladder without cholecystitis without obstruction Nausea Procedures US FEMALE PELVIS TRANSABD LTD US PELVIC NONOBSTETRIC IMAGE DCMTN LIMITED/F/U Rick Leong APRN.TECHNICAL SALES MANAGER [address] [place] [address] [facility] Referral ID Status Reason Start Date Expiration Date Visits Requested Visits Authorized [id number] Authorized Auto-Generat ed Referral 06/10/2022 07/10/2023 1 1 * Diagnostic Procedure Only (Urgent) - Authorized Specialty Diagnoses / Procedures Referred By Contac t Referred To Contact [facility] Diagnoses Renal mass, right Generalized abdominal pain Calculus of gallbladder without cholecystitis without obstruction Nausea Procedures US FEMALE PELVIS TRANSVAG US TRANSVAGINAL Rick Leong APRN.TECHNICAL SALES MANAGER [address] [place] [address] [facility] Referral ID Status Reason Start Date Expiration Date Visits Requested Visits Authorized [id number] Authorized Auto-Generat ed Referral 06/10/2022 07/10/2023 1 1 * Diagnostic Procedure Only (Urgent) - Authorized Specialty Diagnoses / Procedures Referred By Contac t Referred To Contact [facility] Diagnoses Renal mass, right Generalized abdominal pain Calculus of gallbladder without cholecystitis without obstruction Nausea Procedures US ABDOMEN COMPLETE US ABDOMINAL REAL TIME W/IMAGE DOCUMENTATION Rick Leong APRN.TECHNICAL SALES MANAGER [address] [place] [address] [facility] Referral ID Status Reason Start Date Expiration Date Visits Requested Visits Authorized [id number] Authorized Auto-Generat ed Referral 06/10/2022 07/10/2023 1 1 [facility] for referral (narrative)* Diagnostic Procedure Only (Routine) - Authorized Specialty Diagnoses / Procedures Referred By Contac t Referred To Contact [facility]LECULAR [facility]AL [facility] Diagnoses Calculus of gallbladder without cholecystitis without obstruction Procedures NM HEPATOBILIARY W EF AND/OR RX HEPATOBIL SYST IMAG INC GB W/PHARMA INTERVENJ Kelsey Mann APRN.TECHNICAL SALES MANAGER [address] [place] [address] [facility] [address] [place] [id number] Referral ID Status Reason Start Date Expiration Date Visits Requested Visits Authorized [id number] Authorized Auto-Generat ed Referral 06/17/2022 07/17/2023 1 1 * Consult, Test, Treat (Routine) - Pending Review Specialty Diagnoses / Procedures Referred By Contac t Referred To Contact General Surgery Diagnoses Calculus of gallbladder without cholecystitis without obstruction Generalized abdominal pain Procedures CONSULT TO GENERAL SURGERY OFFICE/OUTPATIENT [facility] 60-74 MINUTES Kelsey Mann APRN.TECHNICAL SALES MANAGER [address] [place] [address] Referral ID Status Reason Start Date Expiration Date Visits Requested Visits Authorized [id number] Pending Review PCP Requested Referral 06/17/2022 06/17/2023 1 1 [facility] for referral (narrative)* Consultation (Routine) - Patient to Arrange Specialty Diagnoses / Procedures Referred By Contac t Referred To Contact Physical Therapy Diagnoses Bilateral hip pain Frank Plata MD [address] [place] [address] Referral ID Status Reason Start Date Expiration Date V isits Requested Visits Authorized [id number] Patient to Arrange 08/11/2022 09/05/2023 1 1 Scheduling Instructions . [facility] for referral (narrative)* Diagnostic Procedure Only (Urgent) - Closed Specialty Diagnoses / Procedures Referred By Contac t Referred To Contact [facility] Diagnoses Renal mass, right Generalized abdominal pain Calculus of gallbladder without cholecystitis without obstruction Nausea Procedures US ABDOMEN COMPLETE US ABDOMINAL REAL TIME W/IMAGE DOCUMENTATION Rick Leong APRN.TECHNICAL SALES MANAGER [address] [place] [address] [place] [address] Referral ID Status Reason Start Date Expiration Date V isits Requested Visits Authorized [id number] Closed Auto-Generate d Referral 06/10/2022 07/10/2023 1 1 [facility] for referral (narrative)* Diagnostic Procedure Only (Routine) - Closed Specialty Diagnoses / Procedures [facility] To Contact XR IMAG[facility] Diagnoses Generalized abdominal pain Right sided abdominal pain Procedures XR ABDOMEN 1V SUPINE RADIOLOGIC EXAM ABDOMEN 1 VIEW Ria Gunter APRN.TECHNICAL SALES MANAGER [address] [place] [address] [place] [address] Referral ID Status Reason Start Date Expiration Date V isits Requested Visits Authorized [id number] Closed Auto-Generate d Referral 05/03/2022 06/02/2023 1 1 [facility] for referral (narrative)* Diagnostic Procedure Only (Routine) - New Request Specialty Diagnoses / Procedures Referred By Contsebas t Referred To Contact [facility] Diagnoses Encounter for screening mammogram for malignant neoplasm of breast Procedures MATT SCREENING SCREENING MAMMOGRAPHY BI 2-VIEW BREAST INC Jagjit Villaseñor, DO [address] [place] [address] [facility] [address] [place] [address] Referral ID Status Reason Start Date Expiration Date Visits Requested Visits Authorized [id number] New Request Auto-Generat ed Referral 03/29/2024 04/28/2025 1 1 [facility] for visit Narrative* Diagnostic Procedure Only (Routine) - Closed Specialty Diagnoses / Procedures Referred By Contac t Referred To Contact [facility] Diagnoses Visit for screening mammogram Procedures MATT SCREENING SCREENING MAMMOGRAPHY BI 2-VIEW BREAST INC CAD Jagjit Matias, DO [address] [place] [address] [facility] [address] [place] [address] Referral ID Status Reason Start Date Expiration Date V isits Requested Visits Authorized [id number] Closed Auto-Generate d Referral 12/13/2021 01/12/2023 1 1 [facility] for visit Narrative* Diagnostic Procedure Only (Routine) - Closed Specialty Diagnoses / Procedures Referred By Gabino t Referred To Contact [facility] Diagnoses Encounter for screening mammogram for malignant neoplasm of breast Procedures MATT SCREENING SCREENING MAMMOGRAPHY BI 2-VIEW BREAST INC CAD Jagjit Matias, DO [address] [place] [address] [facility] [address] [place] [address] Referral ID Status Reason Start Date Expiration Date V isits Requested Visits Authorized [id number] Closed Auto-Generate d Referral 02/08/2023 03/08/2024 1 1 [facility] for visit Narrative* Diagnostic Procedure Only (Routine) - Closed Specialty Diagnoses / Procedures Referred By Contac t Referred To Contact XR IMAGING Diagnoses Generalized abdominal pain Right sided abdominal pain Procedures XR ABDOMEN 1V SUPINE RADIOLOGIC EXAM ABDOMEN 1 VIEW Ria Gunter, EDGARDO.TECHNICAL SALES MANAGER [address] [place] [address] [place] [id number] Referral ID Status Reason Start Date Expiration Date V isits Requested Visits Authorized [id number] Closed Auto-Generate d Referral 05/03/2022 06/02/2023 1 1 [facility] for visit Narrative* Diagnostic Procedure Only (Routine) - Closed Specialty Diagnoses / Procedures Referred By Contac t Referred To Contact [facility] Diagnoses Encounter for screening mammogram for malignant neoplasm of breast Procedures MATT SCREENING SCREENING MAMMOGRAPHY BI 2-VIEW BREAST INC CAD Florencio Jagjit L, DO [address] [place] [address] Phone: tel: fax: [facility] [address] [place] [id number] Referral ID Status Reason Start Date Expiration Date V isits Requested Visits Authorized [id number] Closed Auto-Generate d Referral 03/29/2024 04/28/2025 1 1 [facility] MRI/CT (Routine) - Closed Specialty Diagnoses / Procedures Referred By Gabino t Referred To Contact MR IMAGING Diagnoses History of renal cell cancer Procedures MRI ABDOMEN WO/W IVCON MRI ABDOMEN W/O & W/CONTRAST MATERIAL Edith Danielle APRN.[facility] [address] [place] [address] Phone: tel: fax: [place] [id number] Referral ID Status Reason Start Date Expiration Date V isits Requested Visits Authorized [id number] Closed Auto-Generate d Referral 07/27/2023 08/25/2024 1 1 [facility] Summary Purpose Family History No Family History Records FoundNo Family History Records FoundNo Family History Records FoundNo Family History Records FoundNo Family History Records FoundNo Family History Records Found Advance Directives No Advanced Directives Records FoundDocuments on File Type Date Recorded 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 Advance Directive(s) 06/19/2018 9:47 AM Documents on File Type Date Recorded 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 Advance Directive(s) 06/19/2018 9:47 AM Documents on File Type Date Recorded 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 Advance Directive(s) 06/17/2021 10:50 AM Advance Directive(s) 06/19/2018 9:47 AM Documents on File Type Date Recorded 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 Advance Directive(s) 06/24/2021 11:53 AM Advance Directive(s) 06/17/2021 10:50 AM Advance Directive(s) 06/19/2018 9:47 AM Documents on File Type Date Recorded 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 Advance Directive(s) 06/24/2021 11:53 AM Advance Directive(s) 06/17/2021 10:50 AM Advance Directive(s) 06/19/2018 9:47 AM Reason for Referral Status Reason Specialty Diagnoses / Procedures Referred By Contact Referred To Contact New Request Diagnoses Hx of total hip arthroplasty, left Procedures XR HIP WITH PELVIS LEFT Frank Plata MD [address] [place] [address] Specialty Diagnoses / Procedures Referred By Contac t Referred To Contact Orthopedics Diagnoses Left hip pain History of hip replacement, total, left Procedures CONSULT TO ORTHOPAEDICS OFFICE/OUTPATIENT [facility] 60-74 MINUTES Jagjit Matias, DO [address] [place] [address] Referral ID Status Reason Start Date Expiration Date Visits Requested Visits Authorized [id number] Pending Review PCP Requested Referral 07/13/2021 07/13/2022 1 1 Specialty Diagnoses / Procedures Referred By Contac t Referred To Contact Podiatry Diagnoses Foot pain, bilateral Procedures CONSULT TO PODIATRY OFFICE/OUTPATIENT [facility] 60-74 MINUTES Jagjit Matias, DO [address] [place] [address] Referral ID Status Reason Start Date Expiration Date Visits Requested Visits Authorized [id number] Pending Review PCP Requested Referral 07/13/2021 07/13/2022 1 1 Specialty Diagnoses / Procedures Referred By Marleneac t Referred To Contact MR IMAGING Diagnoses Left hip pain Antalgic gait History of hip replacement, total, left Limping Procedures MRI HIP WO IVCON LT MRI ANY JT LOWER EXTREM W/O CONTRAST MATRL Jagjit Matias, DO [address] [place] [address] Mr Imaging Referral ID Status Reason Start Date Expiration Date Visits Requested Visits Authorized [id number] Pending Review Auto-Generat ed Referral 12/15/2021 01/14/2023 1 1 Specialty Diagnoses / Procedures Referred By Marleneac t Referred To Contact [facility] Diagnoses Nonrheumatic mitral valve regurgitation Procedures ECHO ECHO TTHRC R-T 2D W/WOM-MODE COMPL SPEC&COLR D Jagjit Matias, DO [address] [place] [address] [facility] [place] [address] [place] [address] Referral ID Status Reason Start Date Expiration Date Visits Requested Visits Authorized [id number] Pending Review Auto-Generat ed Referral 12/15/2021 12/15/2022 1 1 Specialty Diagnoses / Procedures Referred By Contac t Referred To Contact CT IMAGING Diagnoses Other specified disorders of kidney and ureter Renal mass Right sided abdominal pain Procedures CT KIDNEY WO/W IVCON CT ABDOMEN W & W/O CONTRAST Jagjit Matias, DO [address] [place] [address] Ct Imaging Referral ID Status Reason Start Date Expiration Date Visits Requested Visits Authorized [id number] Authorized Auto-Generat ed Referral 05/13/2022 06/12/2023 1 1 Specialty Diagnoses / Procedures Referred By Contac t Referred To Contact Urology Diagnoses Renal mass, right Procedures CONSULT TO UROLOGY OFFICE/OUTPATIENT [facility] 60-74 MINUTES Jagjit Matias, DO [address] [place] [address] Referral ID Status Reason Start Date Expiration Date Visits Requested Visits Authorized [id number] Pending Review PCP Requested Referral 05/19/2022 05/19/2023 1 1 Specialty Diagnoses / Procedures Referred By Contac t Referred To Contact Diagnoses Renal mass Procedures REFER TO PACC - PRE ANESTHESIA CONSULTATION CLINIC OFFICE/OUTPATIENT [facility] 60-74 MINUTES Skylar Smith MD [address] [place] [address] Referral ID Status Reason Start Date Expiration Date Visits Requested Visits Authorized [id number] Pending Review PCP Requested Referral 06/09/2022 06/09/2023 1 1 Specialty Diagnoses / Procedures Referred By Contac t Referred [facility] Diagnoses Renal mass Procedures ECG COMPLETE ECG ROUTINE ECG W/LEAST 12 LDS W/I&R Skylar Smith MD [address] [place] [address] [facility] [address] [address] Referral ID Status Reason Start Date Expiration Date Visits Requested Visits Authorized [id number] Pending Review Auto-Generat ed Referral 06/09/2022 06/09/2023 1 1 Specialty Diagnoses / Procedures Referred By Contac t Referred To Contact Diagnoses Left hip pain Pain in prosthetic joint, sequela Procedures NUC 3 PHASE LIMITED BONE SCAN [facility], 3 PHASE Frank Plata MD [address] [place] [address] Referral ID Status Reason Start Date Expiration Date V isits Requested Visits Authorized [id number] New Request 06/09/2022 07/04/2023 2 2 Specialty Diagnoses / Procedures Referred By Contac t Referred To Contact Diagnoses Left hip pain Pain in prosthetic joint, sequela Procedures MRI HIP LEFT WITHOUT CONTRAST VA MRI LOWER EXTREM JT, W/O CONTRAST Frank Plata MD [address] [place] [address] Referral ID Status Reason Start Date Expiration Date V isits Requested Visits Authorized [id number] New Request 06/09/2022 07/04/2023 1 1 Specialty Diagnoses / Procedures Referred By Contac t Referred To Contact Diagnoses Pain in prosthetic joint, sequela Procedures XR KNEE LEFT 3 VIEWS Frank Plata MD [address] [place] [address] Referral ID Status Reason Start Date Expiration Date V isits Requested Visits Authorized [id number] New Request 06/09/2022 07/04/2023 1 1 Specialty Diagnoses / Procedures Referred By Contac t Referred To Contact Diagnoses Pain in prosthetic joint, sequela Procedures XR BONE LENGTH STUDY Frank Plata MD [address] [place] [address] Referral ID Status Reason Start Date Expiration Date V isits Requested Visits Authorized [id number] New Request 06/09/2022 07/04/2023 1 1 Specialty Diagnoses / Procedures Referred By Contac t Referred To Contact Diagnoses Left hip pain Procedures XR HIP WITH PELVIS LEFT Frank Plata MD [address] [place] [address] Referral ID Status Reason Start Date Expiration Date V isits Requested Visits Authorized [id number] Pending Review 06/03/2022 06/28/2023 1 1 Specialty Diagnoses / Procedures Referred By Contac t Referred To Contact CT IMAGING Diagnoses Other specified disorders of kidney and ureter Procedures CT KIDNEY WO/W IVCON CT ABDOMEN W & W/O CONTRAST Weight, MD Skylar [address] [place] [address] Ct Imaging Referral ID Status Reason Start Date Expiration Date Visits Requested Visits Authorized [id number] Pending Review Auto-Generat ed Referral 09/02/2022 07/02/2023 1 1 Specialty Diagnoses / Procedures Referred By Contac t Referred To Contact Magnetic Resonance Imaging Diagnoses Left hip pain Pain in prosthetic joint, sequela Procedures MRI HIP LEFT WITHOUT CONTRAST VA MRI LOWER EXTREM JT, W/O CONTRAST Frank Plata MD [address] [place], [place] [id number] [facility] [address] [place] [phone] Referral ID Status Reason Start Date Expiration Date Visits Re quested Visits Authorized [id number] Closed 06/09/2022 07/04/2023 1 1 Specialty Diagnoses / Procedures Referred By Contac t Referred To Contact Nuclear Medicine Diagnoses Left hip pain Pain in prosthetic joint, sequela Procedures NUC 3 PHASE LIMITED BONE SCAN [facility] BONE IMAGING, 3 PHASE Frank Plata MD [address] [place] [address] [facility] [address] [place] [phone] Referral ID Status Reason Start Date Expiration Date Visits Re quested Visits Authorized [id number] Closed 06/09/2022 07/04/2023 2 2 Specialty Diagnoses / Procedures Referred By Contac t Referred To Contact CT IMAGING Diagnoses Renal cell carcinoma, unspecified laterality (HCC) Procedures CT ABDOMEN W IVCON CT ABDOMEN W/CONTRAST Weight, MD Skylar [address] [place] [address] Ct Imaging Referral ID Status Reason Start Date Expiration Date Visits Requested Visits Authorized [id number] Pending Review Auto-Generat ed Referral 07/22/2023 08/20/2023 1 1 Specialty Diagnoses / Procedures Referred By Contac t Referred To Contact CT IMAGING Diagnoses Leukocytosis, unspecified type Procedures CT ABD/PEL W IVCON CT ABD & PELVIS W/CONTRAST Skylar De Los Santos MD [address] [place] [address] Ct Imaging Referral ID Status Reason Start Date Expiration Date Visits Requested Visits Authorized [id number] Authorized Auto-Generat ed Referral 09/23/2022 10/23/2023 1 1 Specialty Diagnoses / Procedures Referred By Contac t Referred To Contact MR IMAGING Diagnoses Contrast media allergy Pancreatic lesion Procedures MRI PANC/SUSANA WO/W IVCON MRI ABDOMEN W/O & W/CONTRAST MATERIAL Miracle Acuña MINE ENVIRONMENTAL ENGINEER.TECHNICAL SALES MANAGER [address] [place] [address] Mr Imaging Referral ID Status Reason Start Date Expiration Date Visits Requested Visits Authorized [id number] Pending Review Auto-Generat ed Referral 09/26/2022 10/26/2023 1 1 Referral ID Status Reason Start Date Expiration Date V isits Requested Visits Authorized [id number] Closed Auto-Generate d Referral 09/23/2022 10/23/2023 1 1 Specialty Diagnoses / Procedures Referred By Contac t Referred To Contact CT IMAGING Diagnoses Other specified disorders of kidney and ureter Procedures CT KIDNEY WO/W IVCON CT ABDOMEN W & W/O CONTRAST Freddie Hua PA-C [address] [place] [address] Ct Imaging Referral ID Status Reason Start Date Expiration Date Visits Requested Visits Authorized [id number] Pending Review Auto-Generat ed Referral 10/10/2022 11/09/2023 1 1 Specialty Diagnoses / Procedures Referred By Contac t Referred To Contact CT IMAGING Diagnoses Leukocytosis, unspecified type Acquired cyst of kidney Other specified disorders of kidney and ureter Renal mass, right Procedures CT KIDNEY WO/W IVCON CT ABDOMEN W & W/O CONTRAST Rick Leong, MINE ENVIRONMENTAL ENGINEER.TECHNICAL SALES MANAGER [address] [place] [address] Ct Imaging Referral ID Status Reason Start Date Expiration Date Visits Requested Visits Authorized [id number] Authorized Auto-Generat ed Referral 10/21/2022 11/20/2023 1 1 Specialty Diagnoses / Procedures Referred By Contac t Referred To Contact MOLECULAR & FUNCTIONAL IMAGING Diagnoses Calculus of gallbladder without cholecystitis without obstruction Procedures NM HEPATOBILIARY W EF AND/OR RX HEPATOBIL SYST IMAG INC GB W/PHARMA INTERVENJ Rick Leong, MINE ENVIRONMENTAL ENGINEER.TECHNICAL SALES MANAGER [address] [place] [address] [facility] [address] [place], [place] [id number] Referral ID Status Reason Start Date Expiration Date Visits Requested Visits Authorized [id number] Authorized Auto-Generat ed Referral 10/21/2022 11/20/2023 1 1 Specialty Diagnoses / [facility] Diagnoses Leukocytosis, unspecified type Acquired cyst of kidney Other specified disorders of kidney and ureter Renal mass, right Procedures CT KIDNEY WO/W IVCON CT ABDOMEN W & W/O CONTRAST Rick Leong, MINE ENVIRONMENTAL ENGINEER.TECHNICAL SALES MANAGER [address] [place] [address] Ct Imaging [facility] Referral ID Status Reason Start Date Expiration Date V isits Requested Visits Authorized [id number] Closed Auto-Generate d Referral 10/21/2022 11/20/2023 1 1 Specialty Diagnoses / Procedures Referred By Contac t Referred To Contact CT IMAGING Diagnoses Renal mass, right 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) Procedures CT KIDNEY WO/W IVCON CT ABDOMEN W & W/O CONTRAST Jagjit Matias L, DO [address] [place] [address] [place] [address] Referral ID Status Reason Start Date Expiration Date Visits Requested Visits Authorized [id number] Pending Review Auto-Generat ed Referral 05/05/2023 06/03/2024 1 1 Specialty Diagnoses / Procedures Referred By Contac t Referred To Contact MR IMAGING Diagnoses History of renal cell cancer Procedures MRI ABDOMEN WO/W IVCON MRI ABDOMEN W/O & W/CONTRAST MATERIAL Edith Danielle APRN.TECHNICAL SALES MANAGER [address] [place] [address] Mr Imaging [facility] Referral ID Status Reason Start Date Expiration Date Visits Requested Visits Authorized [id number] Pending Review Auto-Generat ed Referral 07/27/2023 08/25/2024 1 1 Specialty Diagnoses / Procedures Referred By Contac t Referred To Contact [facility] Diagnoses Tear of gluteus medius tendon, unspecified laterality, subsequent encounter Gait disorder Procedures CONSULT TO PHYSICAL THERAPY PHYSICAL THERAPY EVALUATION HIGH COMPLEX 45 MINS Jagjit Matias, DO [address] [place] [address] [facility] [place] [address] [place], [place] [id number] Referral ID Status Reason Start Date Expiration Date Visits Requested Visits Authorized [id number] Pending Review Auto-Generat ed Referral 08/21/2023 08/20/2024 1 1 History of Present Illness * Frank Plata MD - 05/17/2018 9:00 AM EST Dictation on: 05/17/2018 9:27 AM by: FRANK PLATA [[email or web address]] I have reviewed the findings of the clinical sales support coordinator and agree with their assessment. Frank Plata [...] 05/17/2018 8:58 AM Patient: Letha Castro MR#: [id number] : 1940 Age: 77 y.o. Referring Physician: [...] 05/17/2018 8:58 AM Patient: Letha Castro MR#: [id number] : 1940 Age: 77 y.o. Referring Physician: Frank Plata MD Insurance: Payor: MEDICARE AETNA HMO OR PPO / Plan: MEDICARE AETVidSys PPO / Product Type: *No Product type* [...] left- Primary Hospital Course Note HNO ID: [id number] Author: Gemma Williamson Service: Orthopaedic Surgery Author [...] content) DATE CREATED AUTHOR 10/10/2017 Gina Barber [facility] DATE CREATED AUTHOR AUTHOR'S ORGANIZ ATION 06/25/2018 [facility] DATE CREATED AUTHOR AUTHOR'S ORGANIZ ATION 08/22/2022 Gina Rodriguez [facility] DATE CREATED AUTHOR AUTHOR'S ORGANIZ ATION 09/27/2022 [facility] DATE CREATED AUTHOR AUTHOR'S ORGANIZ ATION 10/17/2024 [facility] DATE CREATED AUTHOR AUTHOR'S ORGANIZ ATION 10/19/2024 [facility] Reason for Visit (unrecogniz ed section and content) Reason Comments Physical Therapy PT Discharge Specialty Diagnoses / Procedures Referred By Contac t Referred To Contact [facility] Diagnoses Tear of gluteus medius tendon, unspecified laterality, subsequent encounter Gait disorder Procedures CONSULT TO PHYSICAL THERAPY PHYSICAL THERAPY EVALUATION HIGH COMPLEX 45 MINS Jagjit Matias, DO [address] [place] [address] Phone: tel: fax: [facility] [address] [place] [address] Referral ID Status Reason Start Date Expiration Date Visits Requested Visits Authorized [id number] Authorized Auto-Generat ed Referral 03/13/2024 03/12/2025 99 99 Reason Comments Follow-up Status Reason Specialty Diagnoses / Procedures Referred By Contact Referred To Contact New Request Diagnoses Hx of total hip arthroplasty, left Procedures XR HIP WITH PELVIS LEFT Frank Plata MD [address] [place] [address] Reason Comments Patient Question Patient Update Reason [...] HIP WITH PELVIS LEFT Frank Plata MD [address] [place] [address] Referral ID Status Reason Start Date Expiration Date V isits Requested Visits Authorized [id number] Pending Review 06/03/2022 06/28/2023 1 1 Reason Comments Abdominal Pain Nausea, RUQ US on 05/11 Reason Comments Message opened in error Reason Comments Social Director - Other Reason Comments New Patient Consult Renal Mass Reason Comments Results Appointment Specialty Diagnoses / Procedures Referred By Marleneac t Referred To Contact Magnetic Resonance Imaging Diagnoses Left hip pain Pain in prosthetic joint, sequela Procedures MRI HIP LEFT WITHOUT CONTRAST VA MRI LOWER EXTREM JT, W/O CONTRAST Frank Plata MD [address] [place] [address] [facility] [address] [place] [phone] Referral ID Status Reason Start Date Expiration Date Visits Re quested Visits Authorized [id number] Closed 06/09/2022 07/04/2023 1 1 Specialty Diagnoses / Procedures Referred By Contac t Referred To Contact Nuclear Medicine Diagnoses Left hip pain Pain in prosthetic joint, sequela Procedures NUC 3 PHASE LIMITED BONE SCAN [facility] BONE IMAGING, 3 PHASE Frank Plata MD [address] [place], [place] [phone] [facility] [address] [place] [phone] Referral ID Status Reason Start Date Expiration Date Visits Re quested Visits Authorized [id number] Closed 06/09/2022 07/04/2023 2 2 Reason Comments [...] PELVIS W/CONTRAST Skylar De Los Santos MD [address] [place] [address] Ct Imaging Referral ID Status Reason Start Date Expiration Date V isits Requested Visits Authorized [id number] Closed Auto-Generate d Referral 09/23/2022 10/23/2023 1 1 Reason Comments Authorization on procedure Reason Comments fax lab results to [facility] for MRI monday Reason Comments CT appt [...] ABDOMEN W & W/O CONTRAST Rick Leong, EDGARDO.TECHNICAL SALES MANAGER [address] [place] [address] [place] [address] Referral ID Status Reason Start Date Expiration Date V isits Requested Visits Authorized [id number] Closed Auto-Generate d Referral 10/21/2022 11/20/2023 1 1 Reason Comments Radiology US Specialty Diagnoses / Procedures Referred By Contac t Referred To Contact US IMAGING Diagnoses Renal mass, right Generalized abdominal pain Calculus of gallbladder without cholecystitis without obstruction Nausea Procedures US ABDOMEN COMPLETE US ABDOMINAL REAL TIME W/IMAGE DOCUMENTATION Rick Leong, MINE ENVIRONMENTAL ENGINEER.TECHNICAL SALES MANAGER [address] [place] [address] [place] [address] Referral ID Status Reason Start Date Expiration Date V isits Requested Visits Authorized [id number] Closed Auto-Generate d Referral 06/10/2022 07/10/2023 1 [...] W & W/O CONTRAST Jagjit Matias, DO [address] [place] [address] [place] [address] Referral ID Status Reason Start Date Expiration Date V isits Requested Visits Authorized [id number] Closed Auto-Generate d Referral 05/05/2023 06/03/2024 1 [...] HIGH COMPLEX 45 MINS Jagjit Matias, DO [address] [place] [address] Phone: tel: fax: [facility] [address] [place] [address] Referral ID Status Reason Start Date Expiration Date Visits Requested Visits Authorized [id number] Authorized Auto-Generat ed Referral 03/13/2024 03/12/2025 99 99 Source Comments (unrecognize d section and content) In the event this informatio n is protected by the Federal Confidentiality of Alcohol and Drug Abuse Patient Records regulations: The Federal rules restrict any use of the information to criminally investigate or prosecute any alcohol or drug abuse patient.[facility] the event this information is protected by the Federal Confidentiality of Alcohol and Drug Abuse Patient Records regulations: The Federal rules restrict any use of the information to criminally investigate or prosecute any alcohol or drug abuse patient.[facility] the event this information is protected by the Federal Confidentiality of Alcohol and Drug Abuse Patient Records regulations: The Federal rules restrict any use of the information to criminally investigate or prosecute any alcohol or drug abuse patient.[facility] the event this information is protected by the Federal Confidentiality of Alcohol and Drug Abuse Patient Records regulations: The Federal rules restrict any use of the information to criminally investigate or prosecute any alcohol or drug abuse patient.[facility] the event this information is protected by the Federal Confidentiality of Alcohol and Drug Abuse Patient Records regulations: The Federal rules restrict any use of the information to criminally investigate or prosecute any alcohol or drug abuse patient.[facility] the event this information is protected by the Federal Confidentiality of Alcohol and Drug Abuse Patient Records regulations: The Federal rules restrict any use of the information to criminally investigate or prosecute any alcohol or drug abuse patient.[facility] the event this information is protected by the Federal Confidentiality of Alcohol and Drug Abuse Patient Records regulations: The Federal rules restrict any use of the information to criminally investigate or prosecute any alcohol or drug abuse patient.[facility] Hospital[facility] the event this information is protected by the Federal Confidentiality of Alcohol and Drug Abuse Patient Records regulations: The Federal rules restrict any use of the information to criminally investigate or prosecute any alcohol or drug abuse patient.[facility] Hospital[facility] the event this information is protected by the Federal Confidentiality of Alcohol and Drug Abuse Patient Records regulations: The Federal rules restrict any use of the information to criminally investigate or prosecute any alcohol or drug abuse patient.[facility] HospitalIn the event this information is protected by the Federal Confidentiality of Alcohol and Drug Abuse Patient Records regulations: The Federal rules restrict any use of the information to criminally investigate or prosecute any alcohol or drug abuse patient.[facility] HospitalIn the event this information is protected by the Federal Confidentiality of Alcohol and Drug Abuse Patient Records regulations: The Federal rules restrict any use of the information to criminally investigate or prosecute any alcohol or drug abuse patient.[facility] HospitalIn the event this information is protected by the Federal Confidentiality of Alcohol and Drug Abuse Patient Records regulations: The Federal rules restrict any use of the information to criminally investigate or prosecute any alcohol or drug abuse patient.[facility] HospitalIn the event this information is protected by the Federal Confidentiality of Alcohol and Drug Abuse Patient Records regulations: The Federal rules restrict any use of the information to criminally investigate or prosecute any alcohol or drug abuse patient.[facility] HospitalIn the event this information is protected by the Federal Confidentiality of Alcohol and Drug Abuse Patient Records regulations: The Federal rules restrict any use of the information to criminally investigate or prosecute any alcohol or drug abuse patient.[facility] HospitalIn the event this information is protected by the Federal Confidentiality of Alcohol and Drug Abuse Patient Records regulations: The Federal rules restrict any use of the information to criminally investigate or prosecute any alcohol or drug abuse patient.[facility] HospitalIn the event this information is protected by the Federal Confidentiality of Alcohol and Drug Abuse Patient Records regulations: The Federal rules restrict any use of the information to criminally investigate or prosecute any alcohol or drug abuse patient.[facility] HospitalIn the event this information is protected by the Federal Confidentiality of Alcohol and Drug Abuse Patient Records regulations: The Federal rules restrict any use of the information to criminally investigate or prosecute any alcohol or drug abuse patient.[facility] HospitalIn the event this information is protected by the Federal Confidentiality of Alcohol and Drug Abuse Patient Records regulations: The Federal rules restrict any use of the information to criminally investigate or prosecute any alcohol or drug abuse patient.[facility] HospitalIn the event this information is protected by the Federal Confidentiality of Alcohol and Drug Abuse Patient Records regulations: The Federal rules restrict any use of the information to criminally investigate or prosecute any alcohol or drug abuse patient.[facility] HospitalIn the event this information is protected by the Federal Confidentiality of Alcohol and Drug Abuse Patient Records regulations: The Federal rules restrict any use of the information to criminally investigate or prosecute any alcohol or drug abuse patient.[facility] HospitalIn the event this information is protected by the Federal Confidentiality of Alcohol and Drug Abuse Patient Records regulations: The Federal rules restrict any use of the information to criminally investigate or prosecute any alcohol or drug abuse patient.[facility] HospitalIn the event this information is protected by the Federal Confidentiality of Alcohol and Drug Abuse Patient Records regulations: The Federal rules restrict any use of the information to criminally investigate or prosecute any alcohol or drug abuse patient.[facility] HospitalIn the event this information is protected by the Federal Confidentiality of Alcohol and Drug Abuse Patient Records regulations: The Federal rules restrict any use of the information to criminally investigate or prosecute any alcohol or drug abuse patient.[facility] HospitalIn the event this information is protected by the Federal Confidentiality of Alcohol and Drug Abuse Patient Records regulations: The Federal rules restrict any use of the information to criminally investigate or prosecute any alcohol or drug abuse patient.[facility] HospitalIn the event this information is protected by the Federal Confidentiality of Alcohol and Drug Abuse Patient Records regulations: The Federal rules restrict any use of the information to criminally investigate or prosecute any alcohol or drug abuse patient.[facility] HospitalIn the event this information is protected by the Federal Confidentiality of Alcohol and Drug Abuse Patient Records regulations: The Federal rules restrict any use of the information to criminally investigate or prosecute any alcohol or drug abuse patient.[facility] HospitalIn the event this information is protected by the Federal Confidentiality of Alcohol and Drug Abuse Patient Records regulations: The Federal rules restrict any use of the information to criminally investigate or prosecute any alcohol or drug abuse patient.[facility] HospitalIn the event this information is protected by the Federal Confidentiality of Alcohol and Drug Abuse Patient Records regulations: The Federal rules restrict any use of the information to criminally investigate or prosecute any alcohol or drug abuse patient.[facility] HospitalIn the event this information is protected by the Federal Confidentiality of Alcohol and Drug Abuse Patient Records regulations: The Federal rules restrict any use of the information to criminally investigate or prosecute any alcohol or drug abuse patient.[facility] HospitalIn the event this information is protected by the Federal Confidentiality of Alcohol and Drug Abuse Patient Records regulations: The Federal rules restrict any use of the information to criminally investigate or prosecute any alcohol or drug abuse patient.[facility] HospitalIn the event this information is protected by the Federal Confidentiality of Alcohol and Drug Abuse Patient Records regulations: The Federal rules restrict any use of the information to criminally investigate or prosecute any alcohol or drug abuse patient.[facility] HospitalIn the event this information is protected by the Federal Confidentiality of Alcohol and Drug Abuse Patient Records regulations: The Federal rules restrict any use of the information to criminally investigate or prosecute any alcohol or drug abuse patient.[facility] HospitalIn the event this information is protected by the Federal Confidentiality of Alcohol and Drug Abuse Patient Records regulations: The Federal rules restrict any use of the information to criminally investigate or prosecute any alcohol or drug abuse patient.[facility] HospitalIn the event this information is protected by the Federal Confidentiality of Alcohol and Drug Abuse Patient Records regulations: The Federal rules restrict any use of the information to criminally investigate or prosecute any alcohol or drug abuse patient.[facility] HospitalIn the event this information is protected by the Federal Confidentiality of Alcohol and Drug Abuse Patient Records regulations: The Federal rules restrict any use of the information to criminally investigate or prosecute any alcohol or drug abuse patient.[facility] HospitalIn the event this information is protected by the Federal Confidentiality of Alcohol and Drug Abuse Patient Records regulations: The Federal rules restrict any use of the information to criminally investigate or prosecute any alcohol or drug abuse patient.[facility] HospitalIn the event this information is protected by the Federal Confidentiality of Alcohol and Drug Abuse Patient Records regulations: The Federal rules restrict any use of the information to criminally investigate or prosecute any alcohol or drug abuse patient.[facility] HospitalIn the event this information is protected by the Federal Confidentiality of Alcohol and Drug Abuse Patient Records regulations: The Federal rules restrict any use of the information to criminally investigate or prosecute any alcohol or drug abuse patient.[facility] HospitalIn the event this information is protected by the Federal Confidentiality of Alcohol and Drug Abuse Patient Records regulations: The Federal rules restrict any use of the information to criminally investigate or prosecute any alcohol or drug abuse patient.[facility] HospitalIn the event this information is protected by the Federal Confidentiality of Alcohol and Drug Abuse Patient Records regulations: The Federal rules restrict any use of the information to criminally investigate or prosecute any alcohol or drug abuse patient.[facility] HospitalIn the event this information is protected by the Federal Confidentiality of Alcohol and Drug Abuse Patient Records regulations: The Federal rules restrict any use of the information to criminally investigate or prosecute any alcohol or drug abuse patient.[facility] HospitalIn the event this information is protected by the Federal Confidentiality of Alcohol and Drug Abuse Patient Records regulations: The Federal rules restrict any use of the information to criminally investigate or prosecute any alcohol or drug abuse patient.[facility] HospitalIn the event this information is protected by the Federal Confidentiality of Alcohol and Drug Abuse Patient Records regulations: The Federal rules restrict any use of the information to criminally investigate or prosecute any alcohol or drug abuse patient.[facility] HospitalIn the event this information is protected by the Federal Confidentiality of Alcohol and Drug Abuse Patient Records regulations: The Federal rules restrict any use of the information to criminally investigate or prosecute any alcohol or drug abuse patient.[facility] HospitalIn the event this information is protected by the Federal Confidentiality of Alcohol and Drug Abuse Patient Records regulations: The Federal rules restrict any use of the information to criminally investigate or prosecute any alcohol or drug abuse patient.[facility] HospitalIn the event this information is protected by the Federal Confidentiality of Alcohol and Drug Abuse Patient Records regulations: The Federal rules restrict any use of the information to criminally investigate or prosecute any alcohol or drug abuse patient.[facility] HospitalIn the event this information is protected by the Federal Confidentiality of Alcohol and Drug Abuse Patient Records regulations: The Federal rules restrict any use of the information to criminally investigate or prosecute any alcohol or drug abuse patient.[facility] HospitalIn the event this information is protected by the Federal Confidentiality of Alcohol and Drug Abuse Patient Records regulations: The Federal rules restrict any use of the information to criminally investigate or prosecute any alcohol or drug abuse patient.[facility] HospitalIn the event this information is protected by the Federal Confidentiality of Alcohol and Drug Abuse Patient Records regulations: The Federal rules restrict any use of the information to criminally investigate or prosecute any alcohol or drug abuse patient.[facility] HospitalIn the event this information is protected by the Federal Confidentiality of Alcohol and Drug Abuse Patient Records regulations: The Federal rules restrict any use of the information to criminally investigate or prosecute any alcohol or drug abuse patient.[facility] HospitalIn the event this information is protected by the Federal Confidentiality of Alcohol and Drug Abuse Patient Records regulations: The Federal rules restrict any use of the information to criminally investigate or prosecute any alcohol or drug abuse patient.[facility] HospitalIn the event this information is protected by the Federal Confidentiality of Alcohol and Drug Abuse Patient Records regulations: The Federal rules restrict any use of the information to criminally investigate or prosecute any alcohol or drug abuse patient.[facility] HospitalIn the event this information is protected by the Federal Confidentiality of Alcohol and Drug Abuse Patient Records regulations: The Federal rules restrict any use of the information to criminally investigate or prosecute any alcohol or drug abuse patient.[facility] HospitalIn the event this information is protected by the Federal Confidentiality of Alcohol and Drug Abuse Patient Records regulations: The Federal rules restrict any use of the information to criminally investigate or prosecute any alcohol or drug abuse patient.[facility] HospitalIn the event this information is protected by the Federal Confidentiality of Alcohol and Drug Abuse Patient Records regulations: The Federal rules restrict any use of the information to criminally investigate or prosecute any alcohol or drug abuse patient.[facility] HospitalIn the event this information is protected by the Federal Confidentiality of Alcohol and Drug Abuse Patient Records regulations: The Federal rules restrict any use of the information to criminally investigate or prosecute any alcohol or drug abuse patient.[facility] HospitalIn the event this information is protected by the Federal Confidentiality of Alcohol and Drug Abuse Patient Records regulations: The Federal rules restrict any use of the information to criminally investigate or prosecute any alcohol or drug abuse patient.[facility] HospitalIn the event this information is protected by the Federal Confidentiality of Alcohol and Drug Abuse Patient Records regulations: The Federal rules restrict any use of the information to criminally investigate or prosecute any alcohol or drug abuse patient.[facility] HospitalIn the event this information is protected by the Federal Confidentiality of Alcohol and Drug Abuse Patient Records regulations: The Federal rules restrict any use of the information to criminally investigate or prosecute any alcohol or drug abuse patient.[facility] HospitalIn the event this information is protected by the Federal Confidentiality of Alcohol and Drug Abuse Patient Records regulations: The Federal rules restrict any use of the information to criminally investigate or prosecute any alcohol or drug abuse patient.[facility] HospitalIn the event this information is protected by the Federal Confidentiality of Alcohol and Drug Abuse Patient Records regulations: The Federal rules restrict any use of the information to criminally investigate or prosecute any alcohol or drug abuse patient.[facility] HospitalIn the event this information is protected by the Federal Confidentiality of Alcohol and Drug Abuse Patient Records regulations: The Federal rules restrict any use of the information to criminally investigate or prosecute any alcohol or drug abuse patient.[facility] HospitalIn the event this information is protected by the Federal Confidentiality of Alcohol and Drug Abuse Patient Records regulations: The Federal rules restrict any use of the information to criminally investigate or prosecute any alcohol or drug abuse patient.[facility] HospitalIn the event this information is protected by the Federal Confidentiality of Alcohol and Drug Abuse Patient Records regulations: The Federal rules restrict any use of the information to criminally investigate or prosecute any alcohol or drug abuse patient.[facility] HospitalIn the event this information is protected by the Federal Confidentiality of Alcohol and Drug Abuse Patient Records regulations: The Federal rules restrict any use of the information to criminally investigate or prosecute any alcohol or drug abuse patient.[facility] HospitalIn the event this information is protected by the Federal Confidentiality of Alcohol and Drug Abuse Patient Records regulations: The Federal rules restrict any use of the information to criminally investigate or prosecute any alcohol or drug abuse patient.[facility] HospitalIn the event this information is protected by the Federal Confidentiality of Alcohol and Drug Abuse Patient Records regulations: The Federal rules restrict any use of the information to criminally investigate or prosecute any alcohol or drug abuse patient.[facility] HospitalIn the event this information is protected by the Federal Confidentiality of Alcohol and Drug Abuse Patient Records regulations: The Federal rules restrict any use of the information to criminally investigate or prosecute any alcohol or drug abuse patient.[facility] HospitalIn the event this information is protected by the Federal Confidentiality of Alcohol and Drug Abuse Patient Records regulations: The Federal rules restrict any use of the information to criminally investigate or prosecute any alcohol or drug abuse patient.[facility] HospitalIn the event this information is protected by the Federal Confidentiality of Alcohol and Drug Abuse Patient Records regulations: The Federal rules restrict any use of the information to criminally investigate or prosecute any alcohol or drug abuse patient.[facility] HospitalIn the event this information is protected by the Federal Confidentiality of Alcohol and Drug Abuse Patient Records regulations: The Federal rules restrict any use of the information to criminally investigate or prosecute any alcohol or drug abuse patient.[facility] HospitalIn the event this information is protected by the Federal Confidentiality of Alcohol and Drug Abuse Patient Records regulations: The Federal rules restrict any use of the information to criminally investigate or prosecute any alcohol or drug abuse patient.[facility] HospitalIn the event this information is protected by the Federal Confidentiality of Alcohol and Drug Abuse Patient Records regulations: The Federal rules restrict any use of the information to criminally investigate or prosecute any alcohol or drug abuse patient.[facility] HospitalIn the event this information is protected by the Federal Confidentiality of Alcohol and Drug Abuse Patient Records regulations: The Federal rules restrict any use of the information to criminally investigate or prosecute any alcohol or drug abuse patient.[facility] HospitalIn the event this information is protected by the Federal Confidentiality of Alcohol and Drug Abuse Patient Records regulations: The Federal rules restrict any use of the information to criminally investigate or prosecute any alcohol or drug abuse patient.[facility] HospitalIn the event this information is protected by the Federal Confidentiality of Alcohol and Drug Abuse Patient Records regulations: The Federal rules restrict any use of the information to criminally investigate or prosecute any alcohol or drug abuse patient.[facility] HospitalIn the event this information is protected by the Federal Confidentiality of Alcohol and Drug Abuse Patient Records regulations: The Federal rules restrict any use of the information to criminally investigate or prosecute any alcohol or drug abuse patient.[facility] HospitalIn the event this information is protected by the Federal Confidentiality of Alcohol and Drug Abuse Patient Records regulations: The Federal rules restrict any use of the information to criminally investigate or prosecute any alcohol or drug abuse patient.[facility] HospitalIn the event this information is protected by the Federal Confidentiality of Alcohol and Drug Abuse Patient Records regulations: The Federal rules restrict any use of the information to criminally investigate or prosecute any alcohol or drug abuse patient.[facility] HospitalIn the event this information is protected by the Federal Confidentiality of Alcohol and Drug Abuse Patient Records regulations: The Federal rules restrict any use of the information to criminally investigate or prosecute any alcohol or drug abuse patient.[facility] HospitalIn the event this information is protected by the Federal Confidentiality of Alcohol and Drug Abuse Patient Records regulations: The Federal rules restrict any use of the information to criminally investigate or prosecute any alcohol or drug abuse patient.[facility] HospitalIn the event this information is protected by the Federal Confidentiality of Alcohol and Drug Abuse Patient Records regulations: The Federal rules restrict any use of the information to criminally investigate or prosecute any alcohol or drug abuse patient.[facility] HospitalIn the event this information is protected by the Federal Confidentiality of Alcohol and Drug Abuse Patient Records regulations: The Federal rules restrict any use of the information to criminally investigate or prosecute any alcohol or drug abuse patient.[facility] HospitalIn the event this information is protected by the Federal Confidentiality of Alcohol and Drug Abuse Patient Records regulations: The Federal rules restrict any use of the information to criminally investigate or prosecute any alcohol or drug abuse patient.[facility] HospitalIn the event this information is protected by the Federal Confidentiality of Alcohol and Drug Abuse Patient Records regulations: The Federal rules restrict any use of the information to criminally investigate or prosecute any alcohol or drug abuse patient.[facility] HospitalIn the event this information is protected by the Federal Confidentiality of Alcohol and Drug Abuse Patient Records regulations: The Federal rules restrict any use of the information to criminally investigate or prosecute any alcohol or drug abuse patient.[facility] HospitalIn the event this information is protected by the Federal Confidentiality of Alcohol and Drug Abuse Patient Records regulations: The Federal rules restrict any use of the information to criminally investigate or prosecute any alcohol or drug abuse patient.[facility] HospitalIn the event this information is protected by the Federal Confidentiality of Alcohol and Drug Abuse Patient Records regulations: The Federal rules restrict any use of the information to criminally investigate or prosecute any alcohol or drug abuse patient.[facility] Care Teams (unrecognized sec tion and content) Filling Machine Tender Relationship Specialty Start Date End Date Jagjit Matias, DO [address] [facility] [place] [address] PCP - General Family Practice 01/09/18 Filling Machine Tender Relationship Specialty Start Date End Date Jagjit Matias, DO [address] [facility] [place] [address] PCP - General Family Practice 01/09/18 Filling Machine Tender Relationship Specialty Start Date End Date Jagjit Matias, DO [address] [facility] [place] [address] PCP - General Family Practice 01/09/18 Filling Machine Tender Relationship Specialty Start Date End Date Jagjit Matias, DO [address] [facility] [place] [address] PCP - General Family Practice 01/09/18 Filling Machine Tender Relationship Specialty Start Date End Date Jagjit Matias, DO [address] [facility] [place] [address] PCP - General Family Practice 01/09/18 Filling Machine Tender Relationship Specialty Start Date End Date Jagjit Matias, DO [address] [facility] [place] [address] PCP - General Family Medicine 01/09/18 Filling Machine Tender Relationship Specialty Start Date End Date Jagjit Matias, DO [address] [facility] [place] [address] PCP - General Family Medicine 01/09/18 Filling Machine Tender Relationship Specialty Start Date End Date Jagjit Matias, DO [address] [place] [address] PCP - General Family Medicine 01/09/18 Filling Machine Tender Relationship Specialty Start Date End Date Jagjit Matias, DO [address] [place] [address] PCP - General Family Medicine 01/09/18 Filling Machine Tender Relationship Specialty Start Date End Date Jagjit Matias, DO [address] [place] [address] PCP - General Family Medicine 01/09/18 Filling Machine Tender Relationship Specialty Start Date End Date Jagjit Matias, DO [address] [place] [address] PCP - General Family Medicine 01/09/18 Filling Machine Tender Relationship Specialty Start Date End Date Jagjit Matias, DO [address] [place] [address] PCP - General Family Medicine 01/09/18 Filling Machine Tender Relationship Specialty Start Date End Date Jagjit Matias, DO [address] [facility] [place] [address] PCP - General Family Medicine 01/09/18 Filling Machine Tender Relationship Specialty Start Date End Date Jagjit Matias, DO [address] [place] [address] PCP - General Family Medicine 01/09/18 Filling Machine Tender Relationship Specialty Start Date End Date Jagjit Matias, DO [address] [place] [address] PCP - General Family Medicine 01/09/18 Filling Machine Tender Relationship Specialty Start Date End Date Jagjit Matias, DO [address] [place] [address] PCP - General Family Medicine 01/09/18 Filling Machine Tender Relationship Specialty Start Date End Date Jagjit Matias, DO [address] [place] [address] PCP - General Family Medicine 01/09/18 Filling Machine Tender Relationship Specialty Start Date End Date Jagjit Matias Isadora, DO [address] [facility] [place] [address] PCP - General Family Medicine 01/09/18 Filling Machine Tender Relationship Specialty Start Date End Date Florencio Jagjit Isadora, DO [address] [place] [address] PCP - General Family Medicine 01/09/18 Filling Machine Tender Relationship Specialty Start Date End Date FlorencioJagjit, DO PCP - General Family Medicine 04/07/17 Filling Machine Tender Relationship Specialty Start Date End Date Jagjit Matias DO PCP - General Family Medicine 04/07/17 Filling Machine Tender Relationship Specialty Start Date End Date Jagjit Matias Isadora, DO [address] [place] [address] PCP - General Family Medicine 01/09/18 Filling Machine Tender Relationship Specialty Start Date End Date Jagjit Matias Isadora, DO [address] [facility] [place] [address] PCP - General Family Medicine 01/09/18 Filling Machine Tender Relationship Specialty Start Date End Date Jagjit Matias Isadora, DO [address] [facility] [place] [address] PCP - General Family Medicine 01/09/18 Filling Machine Tender Relationship Specialty Start Date End Date Florencio Jagjit DO PCP - General Family Medicine 04/07/17 Filling Machine Tender Relationship Specialty Start Date End Date Jagjit Matias DO PCP - General Family Medicine 04/07/17 Filling Machine Tender Relationship Specialty Start Date End Date Jagjit Matias, DO [address] [facility] [place] [address] PCP - General Family Medicine 01/09/18 Filling Machine Tender Relationship Specialty Start Date End Date Jagjit Matias, DO [address] [facility] [place] [address] PCP - General Family Medicine 01/09/18 Filling Machine Tender Relationship Specialty Start Date End Date Jagjit Matias DO [address] [facility] [place] [address] PCP - General Family Medicine 01/09/18 Filling Machine Tender Relationship Specialty Start Date End Date Jagjit Matias DO PCP - General Family Medicine 04/07/17 Filling Machine Tender Relationship Specialty Start Date End Date Jagjit Matias DO [address] [facility] [place] [address] PCP - General Family Medicine 01/09/18 Filling Machine Tender Relationship Specialty Start Date End Date Jagjit Matias DO [address] [facility] [place] [address] PCP - General Family Medicine 01/09/18 Filling Machine Tender Relationship Specialty Start Date End Date Jagjit Matias DO [address] [place] [address] PCP - General Family Medicine 01/09/18 Filling Machine Tender Relationship Specialty Start Date End Date Jagjit Matias DO [address] [facility] [place] [address] PCP - General Family Medicine 01/09/18 Filling Machine Tender Relationship Specialty Start Date End Date Jagjit Matias DO [address] [place] [address] PCP - General Family Medicine 01/09/18 Filling Machine Tender Relationship Specialty Start Date End Date Jagjit Matias DO [address] [facility] [place] [address] PCP - General Family Medicine 01/09/18 Filling Machine Tender Relationship Specialty Start Date End Date Jagjit Matias DO [address] [facility] [place] [address] PCP - General Family Medicine 01/09/18 Filling Machine Tender Relationship Specialty Start Date End Date Jagjit Matias, [address] [facility] [place] [address] PCP - General Family Medicine 01/09/18 Filling Machine Tender Relationship Specialty Start Date End Date Jagjit Matias DO [address] [facility] [place] [address] PCP - General Family Medicine 01/09/18 Filling Machine Tender Relationship Specialty Start Date End Date Jagjit Matias DO [address] [facility] [place] [address] PCP - General Family Medicine 01/09/18 Filling Machine Tender Relationship Specialty Start Date End Date Jagjit Matias, [address] [facility] [place] [address] PCP - General Family Medicine 01/09/18 Filling Machine Tender Relationship Specialty Start Date End Date Jagjit Matias DO [address] [facility] [place] [address] PCP - General Family Medicine 01/09/18 Filling Machine Tender Relationship Specialty Start Date End Date Jagjit Matias DO [address] [facility] [place] [address] PCP - General Family Medicine 01/09/18 Filling Machine Tender Relationship Specialty Start Date End Date Jagjit Matias, [address] [facility] [place] [address] PCP - General Family Medicine 01/09/18 Filling Machine Tender Relationship Specialty Start Date End Date Jagjit Matias, [address] [facility] [place] [address] PCP - General Family Medicine 01/09/18 Filling Machine Tender Relationship Specialty Start Date End Date Jagjit Matias, [address] [facility] [place] [address] PCP - General Family Medicine 01/09/18 Filling Machine Tender Relationship Specialty Start Date End Date Jagjit Matias DO [address] [facility] [place] [address] PCP - General Family Medicine 01/09/18 Filling Machine Tender Relationship Specialty Start Date End Date Jagjit Matias DO [address] [facility] [place] [address] PCP - General Family Medicine 01/09/18 Filling Machine Tender Relationship Specialty Start Date End Date Jagjit Matias, [address] [facility] [place] [address] PCP - General Family Medicine 01/09/18 Filling Machine Tender Relationship Specialty Start Date End Date Jagjit Matias DO [address] [facility] [place] [address] PCP - General Family Medicine 01/09/18 Filling Machine Tender Relationship Specialty Start Date End Date Jagjit Matias, [address] [facility] [place] [address] PCP - General Family Medicine 01/09/18 Filling Machine Tender Relationship Specialty Start Date End Date Jagjit Matias DO [address] [place] [address] PCP - General Family Medicine 01/09/18 Filling Machine Tender Relationship Specialty Start Date End Date Jagjit Matias DO [address] [place] [address] PCP - General Family Medicine 01/09/18 Filling Machine Tender Relationship Specialty Start Date End Date Jagjit Matias DO [address] [place] [address] PCP - General Family Medicine 01/09/18 Filling Machine Tender Relationship Specialty Start Date End Date Jagjit Matias DO [address] [place] [address] PCP - General Family Medicine 01/09/18 Filling Machine Tender Relationship Specialty Start Date End Date Jagjit Matias DO [address] [place] [address] PCP - General Family Medicine 01/09/18 Filling Machine Tender Relationship Specialty Start Date End Date Jagjit Matias DO [address] [place] [address] PCP - General Family Medicine 01/09/18 Filling Machine Tender Relationship Specialty Start Date End Date Jagjit Matias DO [address] [place] [address] PCP - General Family Medicine 01/09/18 Kelsey Mann APRN.TECHNICAL SALES MANAGER [address] [place] [address] [facility] 02/18/24 SaloRick, MINE ENVIRONMENTAL ENGINEER.TECHNICAL SALES MANAGER [address] [place] [address] [facility] 02/18/24 Filling Machine Tender Relationship Specialty Start Date End Date Jagjit Matias DO [address] [place] [address] PCP - General Family Medicine 01/09/18 Kelsey Mann, MINE ENVIRONMENTAL ENGINEER.TECHNICAL SALES MANAGER [address] [place] [address] [facility] 02/18/24 [facility] MINE ENVIRONMENTAL ENGINEER.TECHNICAL SALES MANAGER [address] [place] [address] [facility] 02/18/24 Filling Machine Tender Relationship Specialty Start Date End Date Jagjit Matias DO [address] [place] [address] PCP - General Family Medicine 01/09/18 Kelsey Mann, MINE ENVIRONMENTAL ENGINEER.TECHNICAL SALES MANAGER [address] [place] [address] [facility] 02/18/24 [facility], MINE ENVIRONMENTAL ENGINEER.TECHNICAL SALES MANAGER [address] [facility] [place] [address] [facility] 02/18/24 Filling Machine Tender Relationship Specialty Start Date End Date Jagjit Matias DO [address] [place] [address] PCP - General Family Medicine 01/09/18 [facility], MINE ENVIRONMENTAL ENGINEER.TECHNICAL SALES MANAGER [address] [facility] [place] [address] Foreign Language Interpreter Family [facility] 02/18/24 Filling Machine Tender Relationship Specialty Start Date End Date Jagjit Matias DO [address] [facility] [place] [address] PCP - General Family Medicine 01/09/18 [facility], MINE ENVIRONMENTAL ENGINEER.TECHNICAL SALES MANAGER [address] [facility] [place] [address] Foreign Language Interpreter [facility] 02/18/24 Filling Machine Tender Relationship Specialty Start Date End Date Jagjit Matias DO [address] [facility] [place] [address] PCP - General Family Medicine 01/09/18 [facility], MINE ENVIRONMENTAL ENGINEER.TECHNICAL SALES MANAGER [address] [facility] [place] [address] Foreign Language Interpreter [facility] 02/18/24 Filling Machine Tender Relationship Specialty Start Date End Date Jagjit Matias DO [address] [facility] [place] [address] PCP - General Family Medicine 01/09/18 [facility], MINE ENVIRONMENTAL ENGINEER.TECHNICAL SALES MANAGER [address] [facility] [place] [address] [facility] 02/18/24 Filling Machine Tender Relationship Specialty Start Date End Date Jagjit Matias DO [address] [facility] [place] [address] PCP - General Family Medicine 01/09/18 SaloKathy rendonah, MINE ENVIRONMENTAL ENGINEER.TECHNICAL SALES MANAGER [address] [facility] [place] [address] Foreign Language Interpreter Family [facility] 02/18/24 Filling Machine Tender Relationship Specialty Start Date End Date Jagjit Matias DO [address] [facility] [place] [address] PCP - General Family Medicine 01/09/18 [facility], MINE ENVIRONMENTAL ENGINEER.TECHNICAL SALES MANAGER [address] [facility] [place] [address] Foreign Language Interpreter [facility] 02/18/24 Filling Machine Tender Relationship Specialty Start Date End Date Jagjit Matias DO [address] [place] [address] PCP - General Family Medicine 01/09/18 [facility], MINE ENVIRONMENTAL ENGINEER.TECHNICAL SALES MANAGER [address] [facility] [place] [address] [facility] 02/18/24 Filling Machine Tender Relationship Specialty Start Date End Date Jagjit Matias DO [address] [place] [address] PCP - General Family Medicine 01/09/18 [facility], MINE ENVIRONMENTAL ENGINEER.TECHNICAL SALES MANAGER [address] [facility] [place] [address] [facility] 02/18/24 Filling Machine Tender Relationship Specialty Start Date End Date Jagjit Matias DO [address] [facility] [place] [address] PCP - General Family Medicine 01/09/18 SaloRick, MINE ENVIRONMENTAL ENGINEER.TECHNICAL SALES MANAGER [address] [place] [address] [facility] 02/18/24 Jana Mahmood APRN.TECHNICAL SALES MANAGER [address] [place] [address] [facility] 08/26/24 Filling Machine Tender Relationship Specialty Start Date End Date Jagjit Matias DO [address] [place] [address] PCP - General Family Medicine 01/09/18 Rick Leong APRN.TECHNICAL SALES MANAGER [address] [place] [address] [facility] 02/18/24 Jana Mahmood APRN.TECHNICAL SALES MANAGER [address] [place] [address] [facility] 08/26/24 Filling Machine Tender Relationship Specialty Start Date End Date Jagjit Matias DO [address] [place] [address] PCP - General Family Medicine 01/09/18 Rick Leong APRN.TECHNICAL SALES MANAGER [address] [place] [address] [facility] 02/18/24 Jana Mahmood APRN.TECHNICAL SALES MANAGER [address] [place] [address] [facility] 08/26/24 FOR RECORDS PERTAINING TO PATIENTS WHO [...] BE BASED ON THE PRIMARY CLINICAL RECORDS. [facility] [employer] [facility]. provides no warranty or guarantee of the accuracy or completeness of information in this document.
== END | disposition home or self-care (01) ==
PROVIDERS: PCP Student in an Organized Health Care Education/Training Program; Referring Provider Student in an Organized Health Care Education/Training Program; Visit Provider Student in an Organized Health Care Education/Training Program
DX: K76.0 Fatty (change of) liver, not elsewhere classified (principal)
CPT/HCPCS: 76705; 76981